=== PATIENT | male | born 1945 | race Caucasian/White ===

== ENCOUNTER 2017-12-29 08:22 | Observation (INO) | payer MEDICARE ==
[2017-12-29] MEDS ORDERED: SODIUM CHLORIDE 0.9% 500 ML IV STA (08:36)
--- NOTE | 2017-12-29 08:42 | ED ---
General Adult HPI - General Chief complaint: GI Bleed Stated complaint: blood in stool Time Seen by Provider: 12/29/17 08:25 Source: patient, RN notes reviewed Mode of arrival: ambulatory Limitations: no limitations - History of Present Illness Initial comments: This is a 72-year-old male who presents emergency Department the past medical history significant for COPD and coronary artery disease. Patient states he is on no blood thinners. Patient states about a month ago he had some blood per rectum and it went away so he did not follow up. Patient states it happened again Sunday and again this morning and his doctor wanted to come in and be evaluated. Patient denies any abdominal pain patient denies nausea vomiting diarrhea. Patient states he was bright red blood in the stool. Patient states he had previous surgery for an abscess around his rectum but that was many many years ago. Patient denies any recent fever chills. Patient denies any chest pain palpitations difficulty breathing or shortness of breath. Patient denies any lightheadedness or dizziness. - Related Data Home Medications Medication Instructions Recorded Confirmed Allopurinol [Zyloprim] 100 mg PO DAILY 03/02/16 03/06/16 Aspirin [Adult Low Dose Aspirin EC] 81 mg PO DAILY 03/02/16 03/06/16 Atenolol [Tenormin] 50 mg PO DAILY 03/02/16 03/06/16 Cephalexin [Keflex] 500 mg PO TID 03/02/16 03/06/16 Furosemide [Lasix] 20 mg PO DAILY 03/02/16 03/06/16 Lisinopril [Zestril] 10 mg PO DAILY 03/02/16 03/06/16 Mometasone/Formoterol [Dulera 100 2 puff INHALATION BID 03/02/16 03/06/16 Mcg/5 Mcg Inhaler] Pantoprazole Sodium [Protonix] 20 mg PO DAILY 03/02/16 03/06/16 Simvastatin [Zocor] 20 mg PO DAILY 03/02/16 03/06/16 Previous Rx's Medication Instructions Recorded Ciprofloxacin HCl [Cipro] 500 mg PO Q12HR #14 tablet 03/06/16 Allergies Allergy/AdvReac Type Severity Reaction Status Date / Time No Known Allergies Allergy Verified 12/29/17 08:27 Review of Systems ROS Statement: Those systems with pertinent positive or pertinent negative responses have been documented in the HPI. ROS Other: All systems not noted in ROS Statement are negative. Past Medical History Past Medical History: Chest Pain / Angina, COPD, GERD/Reflux, Myocardial Infarction ([place]), Skin Disorder Additional Past Medical History / Comment(s): gout, open sore rectal area(Dr Alfredo aware per pt) currently on antibiotics Last Myocardial Infarction Date:: approx 2005 History of Any Multi-Drug Resistant Organisms: None Reported Past Surgical History: Heart Catheterization With Stent Additional Past Surgical History / Comment(s): total 3 cardiac stents, surgery for cyst in rectal area, siddharth cataracts Past Anesthesia/Blood Transfusion Reactions: No Reported Reaction Date of Last Stent Placement:: 2005 Past Psychological History: No Psychological Hx Reported Smoking Status: Current some day smoker Past Alcohol Use History: Occasional Past Drug Use History: None Reported General Exam - General Exam Comments Initial Comments: GENERAL: Patient is well-developed and well-nourished. Patient is nontoxic and well- hydrated and is in no acute distress. ENT: Neck is soft and supple. No significant lymphadenopathy is noted. Oropharynx is clear. Moist mucous membranes. EYES: The sclera were anicteric and conjunctiva were pink and moist. Extraocular movements were intact and pupils were equal round and reactive to light. Eyelids were unremarkable. PULMONARY: Unlabored respirations. Good breath sounds bilaterally. No audible rales rhonchi or wheezing was noted. CARDIOVASCULAR: There is a regular rate and rhythm without any murmurs gallops or rubs. ABDOMEN: Soft and nontender with normal bowel sounds. No palpable organomegaly was noted. There is no palpable pulsatile mass. RECTAL No obvious hemorrhoids or fissures noted on rectal exam. Patient has significant scarring from previous surgeries SKIN: Skin is clear with no lesions or rashes and otherwise unremarkable. NEUROLOGIC: Patient is alert and oriented x3. Cranial nerves II through XII are grossly intact. Motor and sensory are also intact. Normal speech, volume and content. Symmetrical smile. MUSCULOSKELETAL: Normal extremities with adequate strength and full range of motion. No lower extremity swelling or edema. No calf tenderness. LYMPHATICS: No significant lymphadenopathy is noted PSYCHIATRIC: Normal psychiatric evaluation. Limitations: no limitations Course Vital Signs 12/29/17 08:24 Temperature 99.2 F Pulse Rate 50 L Respiratory 18 Rate Blood Pressure 146/78 O2 Sat by Pulse 98 Oximetry Medical Decision Making - Medical Decision Making EKG shows sinus rhythm with occasional PAC at a rate of 65 bpm MS interval is 202 QRS 76 QT interval 390 QTC is 405. Patient's EKG shows no ST segment elevation or depression no T-wave abnormalities are noted. Patient requests Dr. Pino for his GI bleed problems. Patient states he had an appointment with her coming up in the near future - Lab Data Result diagrams: 12/29/17 08:55 12/29/17 08:55 Lab Results 12/29/17 12/29/17 12/29/17 Range/Units 08:55 08:55 08:55 WBC 6.5 (3.8-10.6) k/uL RBC 5.40 (4.30-5.90) m/uL Hgb 17.1 (13.0-17.5) gm/dL Hct 49.7 (39.0-53.0) % MCV 92.1 (80.0-100.0) fL MCH 31.6 (25.0-35.0) pg MCHC 34.3 (31.0-37.0) g/dL RDW 12.5 (11.5-15.5) % Plt Count 205 (150-450) k/uL Neutrophils % 56 % Lymphocytes % 30 % Monocytes % 7 % Eosinophils % 5 % Basophils % 0 % Neutrophils # 3.6 (1.3-7.7) k/uL Lymphocytes # 1.9 (1.0-4.8) k/uL Monocytes # 0.5 (0-1.0) k/uL Eosinophils # 0.3 (0-0.7) k/uL Basophils # 0.0 (0-0.2) k/uL PT 10.2 (9.0-12.0) sec INR 1.0 (<1.2) APTT 23.1 (22.0-30.0) sec Sodium 139 (137-145) mmol/L Potassium 4.7 (3.5-5.1) mmol/L Chloride 103 (98-107) mmol/L Carbon Dioxide 28 (22-30) mmol/L Anion Gap 8 mmol/L BUN 12 (9-20) mg/dL Creatinine 1.13 (0.66-1.25) mg/dL Est GFR (CKD-EPI)AfAm 75 (>60 ml/min/1.73 sqM) Est GFR (CKD-EPI)NonAf 65 (>60 ml/min/1.73 sqM) Glucose 118 H (74-99) mg/dL Calcium 9.5 (8.4-10.2) mg/dL Magnesium 2.0 (1.6-2.3) mg/dL Total Bilirubin 0.6 (0.2-1.3) mg/dL AST 27 (17-59) U/L ALT 43 (21-72) U/L Alkaline Phosphatase 67 (38-126) U/L Total Protein 6.6 (6.3-8.2) g/dL Albumin 4.0 (3.5-5.0) g/dL Disposition Clinical Impression: Gastrointestinal hemorrhage Disposition: ADMITTED IP TO THIS HOSP Referrals: Deanna Kate MD [Primary Care Provider] - 1-2 days Time of Disposition: 09:19
[2017-12-29 09:06] LABS: Basophils % (A) 0 %; Eosinophils # (A) 0.3 k/uL (0-0.7); Eosinophils % (A) 5 %; HCT 49.7 % (39.0-53.0); HGB 17.1 gm/dL (13.0-17.5); Lymphocytes # (A) 1.9 k/uL (1.0-4.8); Lymphocytes % (A) 30 %; MCH 31.6 pg (25.0-35.0); MCHC 34.3 g/dL (31.0-37.0); MCV 92.1 fL (80.0-100.0); Mean Platelet Volume 6.4; Monocytes # (A) 0.5 k/uL (0-1.0); Monocytes % (A) 7 %; Neutrophils # (A) 3.6 k/uL (1.3-7.7); Neutrophils % (A) 56 %; Platelet Count 205 k/uL (150-450); RDW 12.5 % (11.5-15.5); WBC 6.5 k/uL (3.8-10.6)
[2017-12-29 09:12] LABS: Partial Thromboplastin Time 23.1 sec (22.0-30.0); Prothrombin Time 10.2 sec (9.0-12.0)
[2017-12-29 09:16] LABS: Calcium 9.5 mg/dL (8.4-10.2); Potassium 4.7 mmol/L (3.5-5.1); Total Bilirubin 0.6 mg/dL (0.2-1.3); Total Protein 6.6 g/dL (6.3-8.2)
[2017-12-29] MEDS ORDERED: SODIUM CHLORIDE 0.9% 1,000 ML IV ONE (09:19)
[2017-12-29 12:13] VITALS: BMI 33.9
[2017-12-29] MEDS: SODIUM CHLORIDE 0.9% 1,000 ML IV SCH (15:13)
[2017-12-29 16:58] LABS: Basophils % (A) 0 %; Eosinophils # (A) 0.3 k/uL (0-0.7); Eosinophils % (A) 4 %; HCT 46.2 % (39.0-53.0); HGB 15.5 gm/dL (13.0-17.5); Lymphocytes # (A) 2.4 k/uL (1.0-4.8); Lymphocytes % (A) 32 %; MCH 31.5 pg (25.0-35.0); MCHC 33.6 g/dL (31.0-37.0); MCV 93.8 fL (80.0-100.0); Mean Platelet Volume 6.5; Monocytes # (A) 0.7 k/uL (0-1.0); Monocytes % (A) 8 %; Neutrophils # (A) 4.1 k/uL (1.3-7.7); Neutrophils % (A) 53 %; Platelet Count 205 k/uL (150-450); RBC 4.92 m/uL (4.30-5.90); RDW 12.8 % (11.5-15.5); WBC 7.7 k/uL (3.8-10.6)
[2017-12-29] MEDS: SYMBICORT 80-4.5 MCG INHALER INHALATION SCH (19:41)
[2017-12-29] MEDS: TAMSULOSIN 0.4 MG CAP.ER.24H PO SCH (21:15)
[2017-12-29 22:33] LABS: Basophils % (A) 0 %; Eosinophils # (A) 0.3 k/uL (0-0.7); Eosinophils % (A) 4 %; HCT 43.6 % (39.0-53.0); Lymphocytes # (A) 2.4 k/uL (1.0-4.8); Lymphocytes % (A) 32 %; MCH 31.9 pg (25.0-35.0); MCHC 34.4 g/dL (31.0-37.0); MCV 92.9 fL (80.0-100.0); Mean Platelet Volume 6.4; Monocytes # (A) 0.5 k/uL (0-1.0); Monocytes % (A) 6 %; Neutrophils # (A) 4.1 k/uL (1.3-7.7); Neutrophils % (A) 55 %; Platelet Count 183 k/uL (150-450); RBC 4.69 m/uL (4.30-5.90); RDW 12.6 % (11.5-15.5); WBC 7.4 k/uL (3.8-10.6)
[2017-12-30] MEDS: SODIUM CHLORIDE 0.9% 1,000 ML IV SCH (03:42)
[2017-12-30 04:10] LABS: Basophils % (A) 0 %; Eosinophils # (A) 0.3 k/uL (0-0.7); Eosinophils % (A) 5 %; HCT 45.6 % (39.0-53.0); HGB 15.8 gm/dL (13.0-17.5); Lymphocytes # (A) 2.6 k/uL (1.0-4.8); Lymphocytes % (A) 36 %; MCH 32.4 pg (25.0-35.0); MCHC 34.7 g/dL (31.0-37.0); MCV 93.4 fL (80.0-100.0); Mean Platelet Volume 6.7; Monocytes # (A) 0.4 k/uL (0-1.0); Monocytes % (A) 6 %; Neutrophils # (A) 3.6 k/uL (1.3-7.7); Neutrophils % (A) 51 %; Platelet Count 164 k/uL (150-450); RBC 4.88 m/uL (4.30-5.90); RDW 12.5 % (11.5-15.5); WBC 7.1 k/uL (3.8-10.6)
[2017-12-30] MEDS: SYMBICORT 80-4.5 MCG INHALER INHALATION SCH ×2 (07:43→19:36)
[2017-12-30] MEDS: PANTOPRAZOLE 40 MG TABLET PO SCH (08:16)
[2017-12-30] MEDS: FUROSEMIDE 20 MG TAB PO SCH (08:16)
[2017-12-30] MEDS: METOPROLOL SUCCINATE (ER) 50 MG TAB.ER.24H PO SCH (08:16)
[2017-12-30] MEDS: LISINOPRIL 10 MG TAB PO SCH (08:17)
[2017-12-30] MEDS: FINASTERIDE 5 MG TAB PO SCH (08:17)
--- NOTE | 2017-12-30 10:21 | P.HPIM ---
History of Present Illness H&P Date: 12/29/17 Chief Complaint: GIB This is a 72-year-old male who presents emergency Department the past medical history significant for COPD and coronary artery disease. Patient states he is on no blood thinners. Patient states about a month ago he had some blood per rectum and it went away so he did not follow up. Patient states it happened again Sunday and again this morning and his doctor wanted to come in and be evaluated. Patient denies any abdominal pain patient denies nausea vomiting diarrhea. Patient states he was bright red blood in the stool. Patient states he had previous surgery for an abscess around his rectum but that was many many years ago. Patient denies any recent fever chills. Patient denies any chest pain palpitations difficulty breathing or shortness of breath. Patient denies any lightheadedness or dizziness. Review of Systems Constitutional: Denies chills, Denies fatigue, Denies fever Eyes: denies blurred vision Ears: deny: decreased hearing Ears, nose, mouth and throat: Denies epistaxis Cardiovascular: Denies chest pain, Denies lightheadedness, Denies palpitations, Denies syncope Respiratory: Denies cough, Denies hemoptysis, Denies wheezing Gastrointestinal: Reports hematochezia, Denies abdominal pain, Denies diarrhea, Denies hematemesis, Denies nausea, Denies vomiting Genitourinary: Denies dysuria, Denies hematuria Musculoskeletal: Denies frequent falls, Denies neck pain, Denies neck stiffness , Denies redness of joints Integumentary: Denies darkening of skin, Denies pruritus, Denies rash, Denies sores Neurological: Denies ataxia, Denies confusion, Denies double vision, Denies numbness, Denies weakness Psychiatric: Denies anxiety, Denies memory loss Endocrine: Denies cold intolerance, Denies excessive sweating, Denies heat intolerance Hematologic/Lymphatic: Denies easy bleeding, Denies easy bruising, Denies lymphedema Allergic/Immunologic: Denies anaphylaxis, Denies angioedema Past Medical History Past Medical History: Chest Pain / Angina, COPD, GERD/Reflux, Myocardial Infarction ([place]), Skin Disorder Additional Past Medical History / Comment(s): gout, open sore rectal area(Dr Alfredo aware per pt) currently on antibiotics Last Myocardial Infarction Date:: approx 2005 History of Any Multi-Drug Resistant Organisms: None Reported Past Surgical History: Heart Catheterization With Stent Additional Past Surgical History / Comment(s): total 3 cardiac stents, surgery for cyst in rectal area, siddharth cataracts uro lift, cysts removed from testicles Past Anesthesia/Blood Transfusion Reactions: No Reported Reaction Date of Last Stent Placement:: 2005 Past Psychological History: No Psychological Hx Reported Smoking Status: Current some day smoker Past Alcohol Use History: Occasional Additional Past Alcohol Use History / Comment(s): has smoked for 50 yrs- now down to some day smoker-trying to quit Past Drug Use History: None Reported Medications and Allergies Home Medications Medication Instructions Recorded Confirmed Type Allopurinol [Zyloprim] 100 mg PO DAILY 03/02/16 12/29/17 History Aspirin [Adult Low Dose Aspirin EC] 81 mg PO DAILY 03/02/16 12/29/17 History Furosemide [Lasix] 20 mg PO DAILY 03/02/16 12/29/17 History Lisinopril [Zestril] 10 mg PO DAILY 03/02/16 12/29/17 History Mometasone/Formoterol [Dulera 100 2 puff INHALATION RT-BID 03/02/16 12/29/17 History Mcg/5 Mcg Inhaler] Pantoprazole Sodium [Protonix] 20 mg PO DAILY 03/02/16 12/29/17 History Finasteride [Proscar] 5 mg PO DAILY 12/29/17 12/29/17 History Magnesium 200 mg PO DAILY 12/29/17 12/29/17 History Metoprolol Succinate [Toprol Xl] 50 mg PO DAILY 12/29/17 12/29/17 History Multivitamins, Thera [Multivitamin 1 tab PO DAILY 12/29/17 12/29/17 History (formulary)] Tamsulosin HCl [Flomax] 0.4 mg PO HS 12/29/17 12/29/17 History Allergies Allergy/AdvReac Type Severity Reaction Status Date / Time No Known Allergies Allergy Verified 12/29/17 10:36 Physical Exam Vitals: Vital Signs Temp Pulse Pulse Resp BP BP Pulse Ox 12/29/17 10:40 98.0 F 65 18 144/81 96 12/29/17 10:15 98.2 F 61 16 149/75 95 12/29/17 09:27 97.2 F L 58 L 16 148/65 95 08/11/18 08:24 99.2 F 50 L 18 146/78 98 Intake and Output 12/28/17 12/29/17 12/29/17 22:59 06:59 14:59 Other: Weight 113.398 kg - Constitutional General appearance: Present: average body habitus, cooperative, no acute distress - EENT Eyes: Present: anicteric sclerae, EOMI, PERRLA, normal appearance ENT: Present: hearing grossly normal, normal oropharynx Ears: bilateral: normal - Neck Neck: Present: normal ROM. Absent: lymphadenopathy, rigidity, thyromegaly Carotids: negative: bruit present Thyroid: bilateral: normal size, negative: enlarged, nodule - Respiratory Respiratory: bilateral: CTA, negative: rales, rhonchi, wheezing - Cardiovascular Rhythm: regular Heart sounds: normal: S1, S2 Abnormal Heart Sounds: Absent: systolic murmur, diastolic murmur - Gastrointestinal General gastrointestinal: Present: normal bowel sounds, soft. Absent: distended , organomegaly, tenderness - Genitourinary Genitourinary Comment(s): deferred - Integumentary Integumentary: Present: normal turgor. Absent: jaundiced, rash, ulcer - Neurologic Neurologic: Present: CNII-XII intact. Absent: focal deficits - Musculoskeletal Musculoskeletal: Present: gait normal, strength equal bilaterally - Psychiatric Psychiatric: Present: A&O x's 3, appropriate affect, intact judgment & insight Results CBC & Chem 7: 12/30/17 04:01 12/29/17 08:55 Labs: Abnormal Lab Results - Last 24 Hours (Table) 12/29/17 Range/Units 08:55 Glucose 118 H (74-99) mg/dL Thrombosis Risk Factor Assmnt - Choose All That Apply Any of the Below Risk Factors Present?: Yes Each Factor Represents 1 point: Obesity (BMI >25), Swollen legs (current) Each Risk Factor Represents 2 Points: Age 61-74 years Other congenital or acquired thrombophilia - If yes, enter type in comment: No Thrombosis Risk Factor Assessment Total Risk Factor Score: 4 Thrombosis Risk Factor Assessment Level: Moderate Risk Assessment and Plan Assessment: 1. GI bleed - We will admit the patient for observation to medical floor - Monitor H&H closely type, crossmatch and transfuse packed RBCs if hemoglobin is less than 8 - Continue with Protonix 40 mg before meals breakfast - Consult GI for further evaluation and recommendations 2. Hypertension; stable on metoprolol 50 mg daily, lisinopril 10 mg daily and Lasix 20 mg daily 3. Hyperlipidemia 4. Asthma/ COPD; not in exacerbation - Continue with Symbicort inhalation 2 puffs twice a day 5. Gastroesophageal reflux disease; stable on Protonix 40 mg daily 6. DVT prophylaxis; SCDs only secondary to GI bleed CODE STATUS; full code Time with Patient: Greater than 30
--- NOTE | 2017-12-30 13:34 | P.PN ---
Subjective Progress Note Date: 12/30/17 Principal diagnosis: GI bleed This is a 72-year-old male who presents emergency Department the past medical history significant for COPD and coronary artery disease. Patient states he is on no blood thinners. Patient states about a month ago he had some blood per rectum and it went away so he did not follow up. Patient states it happened again Sunday and again this morning and his doctor wanted to come in and be evaluated. Patient denies any abdominal pain patient denies nausea vomiting diarrhea. Patient states he was bright red blood in the stool. Patient states he had previous surgery for an abscess around his rectum but that was many many years ago. Patient denies any recent fever chills. Patient denies any chest pain palpitations difficulty breathing or shortness of breath. Patient denies any lightheadedness or dizziness 12/30/2017 Patient is seen and evaluated in the room at bedside; continues to have some rectal bleeding; claims he has not had any bowel movement since admission and has been able to see blood when he wipes himself on the toilet paper; patient relates he has been seen by Dr. Pedro yesterday; wishes to see Dr. Heard prior to discharge; we did discuss patient's lab results with a stable hemoglobin; possible discharge in next 24-48 hours pending recommendations from Dr. Heard tomorrow morning Objective - Vital Signs Vital signs: Vital Signs Temp 97.4 F L 12/30/17 07:24 Pulse 68 12/30/17 07:24 Resp 18 12/30/17 07:24 BP 157/82 12/30/17 07:24 Pulse Ox 92 L 12/30/17 07:24 Intake & Output 12/29/17 12/30/17 12/30/17 18:59 06:59 18:59 Intake Total 300 300 400 Balance 300 300 400 Weight 113.398 kg Intake: Intake, IV Titration 300 Amount Sodium Chloride 0.9% 1, 300 000 ml @ 75 mls/hr IV . [id number] [facility] Rx#:[id number] Oral 300 400 Other: Voiding Method Toilet Toilet Toilet Urinal # Voids 2 1 # Bowel Movements 1 - Exam - Constitutional General appearance: Present: average body habitus, cooperative, no acute distress - EENT Eyes: Present: anicteric sclerae, EOMI, PERRLA, normal appearance ENT: Present: hearing grossly normal, normal oropharynx Ears: bilateral: normal - Neck Neck: Present: normal ROM. Absent: lymphadenopathy, rigidity, thyromegaly Carotids: negative: bruit present Thyroid: bilateral: normal size, negative: enlarged, nodule - Respiratory Respiratory: bilateral: CTA, negative: rales, rhonchi, wheezing - Cardiovascular Rhythm: regular Heart sounds: normal: S1, S2 Abnormal Heart Sounds: Absent: systolic murmur, diastolic murmur - Gastrointestinal General gastrointestinal: Present: normal bowel sounds, soft. Absent: distended , organomegaly, tenderness - Genitourinary Genitourinary Comment(s): deferred - Integumentary Integumentary: Present: normal turgor. Absent: jaundiced, rash, ulcer - Neurologic Neurologic: Present: CNII-XII intact. Absent: focal deficits - Musculoskeletal Musculoskeletal: Present: gait normal, strength equal bilaterally - Psychiatric Psychiatric: Present: A&O x's 3, appropriate affect, intact judgment & insight - Labs CBC & Chem 7: 12/30/17 04:01 12/29/17 08:55 Assessment and Plan Assessment: 1. GI bleed - We will admit the patient for observation to medical floor - Monitor H&H closely type, crossmatch and transfuse packed RBCs if hemoglobin is less than 8 - Continue with Protonix 40 mg before meals breakfast - Consult GI for further evaluation and recommendations 2. Hypertension; stable on metoprolol 50 mg daily, lisinopril 10 mg daily and Lasix 20 mg daily 3. Hyperlipidemia 4. Asthma/ COPD; not in exacerbation - Continue with Symbicort inhalation 2 puffs twice a day 5. Gastroesophageal reflux disease; stable on Protonix 40 mg daily 6. DVT prophylaxis; SCDs only secondary to GI bleed CODE STATUS; full code Time with Patient: Greater than 30
[2017-12-30] MEDS: TAMSULOSIN 0.4 MG CAP.ER.24H PO SCH (20:04)
--- NOTE | 2017-12-30 20:53 | P.CONS ---
History of Present Illness - Reason for Consult Consult date: 12/29/17 Rectal bleeding - History of Present Illness The patient is a 72-year-old male who presented to the Emergency Department with rectal bleeding, He has past medical history significant for COPD and coronary atherosclerotic heart disease and is on no blood thinners. Patient states about a month ago he had some blood per rectum and it went away so he did not follow up. Patient states it happened again Sunday and was scheduled to see Dr Beltran next week, but when he bled again the morning of admission, he called his PCP who wanted him to come in to the hospital and be evaluated. Patient denies any abdominal pain, nausea, vomiting,or diarrhea or constipation. He states he saw bright red blood in the stool. Patient states he had previous surgery for an abscess around his rectum but that was many years ago. Patient denies any fever or chills. Patient denies any chest pain, palpitations or shortness of breath. Patient denies any lightheadedness or dizziness. Review of Systems Constitutional: Denied fever, chills or unintentional weight loss Neurologic: No headaches, double vision or other sensory or motor changes Cardiopulmonary: No chest pains, shortness of breath or palpitations Gastrointestinal: See present illness above Genitourinary: No hematuria, dysuria or frequency Musculoskeletal: No joint complaints or swelling Skin: No rashes Endocrine: No history of diabetes or thyroid disease Hematologic: No history of anemia or bleeding tendency Psychiatric: No anxiety or depression Past Medical History Past Medical History: Chest Pain / Angina, COPD, GERD/Reflux, Myocardial Infarction ([place]), Skin Disorder Additional Past Medical History / Comment(s): gout, open sore rectal area(Dr Alfredo aware per pt) currently on antibiotics Last Myocardial Infarction Date:: 2005 History of Any Multi-Drug Resistant Organisms: None Reported Past Surgical History: Heart Catheterization With Stent Additional Past Surgical History / Comment(s): total 3 cardiac stents, surgery for cyst in rectal area, siddharth cataracts uro lift, cysts removed from testicles Past Anesthesia/Blood Transfusion Reactions: No Reported Reaction Date of Last Stent Placement:: 2005 Past Psychological History: No Psychological Hx Reported Smoking Status: Current some day smoker Past Alcohol Use History: Occasional Additional Past Alcohol Use History / Comment(s): has smoked for 50 yrs- now down to some day smoker-trying to quit Past Drug Use History: None Reported Medications and Allergies Home Medications Medication Instructions Recorded Confirmed Type Allopurinol [Zyloprim] 100 mg PO DAILY 03/02/16 12/29/17 History Aspirin [Adult Low Dose Aspirin EC] 81 mg PO DAILY 03/02/16 12/29/17 History Furosemide [Lasix] 20 mg PO DAILY 03/02/16 12/29/17 History Lisinopril [Zestril] 10 mg PO DAILY 03/02/16 12/29/17 History Mometasone/Formoterol [Dulera 100 2 puff INHALATION RT-BID 03/02/16 12/29/17 History Mcg/5 Mcg Inhaler] Pantoprazole Sodium [Protonix] 20 mg PO DAILY 03/02/16 12/29/17 History Finasteride [Proscar] 5 mg PO DAILY 12/29/17 12/29/17 History Magnesium 200 mg PO DAILY 12/29/17 12/29/17 History Metoprolol Succinate [Toprol Xl] 50 mg PO DAILY 12/29/17 12/29/17 History Multivitamins, Thera [Multivitamin 1 tab PO DAILY 12/29/17 12/29/17 History (formulary)] Tamsulosin HCl [Flomax] 0.4 mg PO HS 12/29/17 12/29/17 History Allergies Allergy/AdvReac Type Severity Reaction Status Date / Time No Known Allergies Allergy Verified 12/29/17 10:36 Physical Exam Vitals: Vital Signs Temp Pulse Resp BP Pulse Ox 12/30/17 14:04 98.9 F 63 16 118/72 94 L 12/30/17 07:24 97.4 F L 68 18 157/82 92 L 12/29/17 23:20 98.3 F 85 20 133/79 92 L Intake and Output 12/30/17 12/30/17 12/30/17 06:59 14:59 22:59 Intake Total 100 640 Balance 100 640 Intake: Oral 100 640 Other: Voiding Method Toilet Toilet Toilet # Voids 1 3 3 Weight 113.398 kg General: Appears stated age, very pleasant in no acute distress Head and neck: Normocephalic and atraumatic, conjunctivae pink and sclerae not icteric, mucous membranes moist and pink, no masses in the neck or tracheal shift Lungs: Clear to auscultation with no dullness to percussion Heart: Regular, no abnormal sounds, murmurs, gallops or friction rubs Abdomen: Soft, no masses or organomegaly, no tenderness. Bowel sounds present. Rectal exam showed no masses with brown stools noted on the glovedexamining finger Extremities: No clubbing, cyanosis or edema Neurologic: Alert and oriented 3. Cranial nerves grossly intact. No gross sensory or motor abnormalities Results CBC & Chem 7: 12/30/17 04:01 12/29/17 08:55 Assessment and Plan Assessment: Rectal bleeding likely secondary to internal hemorrhoids or fissure. In this age group rectal tumors to be kept in mind. Plan: Agree with your current management. Will consider inpatient or outpatient workup based on his course and preference. Will discuss with you,
[2017-12-31] MEDS: SYMBICORT 80-4.5 MCG INHALER INHALATION SCH ×2 (08:01→19:16)
[2017-12-31] MEDS: LISINOPRIL 10 MG TAB PO SCH (08:14)
[2017-12-31] MEDS: METOPROLOL SUCCINATE (ER) 50 MG TAB.ER.24H PO SCH (08:15)
[2017-12-31] MEDS: FINASTERIDE 5 MG TAB PO SCH (08:15)
[2017-12-31] MEDS: PANTOPRAZOLE 40 MG TABLET PO SCH (08:15)
[2017-12-31] MEDS: FUROSEMIDE 20 MG TAB PO SCH (08:15)
[2017-12-31 09:38] LABS: Basophils % (A) 0 %; Eosinophils # (A) 0.3 k/uL (0-0.7); Eosinophils % (A) 5 %; HCT 50.6 % (39.0-53.0); HGB 17.5 gm/dL (13.0-17.5); Lymphocytes % (A) 33 %; MCH 32.1 pg (25.0-35.0); MCHC 34.5 g/dL (31.0-37.0); MCV 92.9 fL (80.0-100.0); Mean Platelet Volume 6.5; Monocytes # (A) 0.4 k/uL (0-1.0); Monocytes % (A) 6 %; Neutrophils # (A) 3.4 k/uL (1.3-7.7); Neutrophils % (A) 54 %; Platelet Count 209 k/uL (150-450); RBC 5.45 m/uL (4.30-5.90); RDW 12.5 % (11.5-15.5); WBC 6.2 k/uL (3.8-10.6)
[2017-12-31 09:44] LABS: Calcium 9.5 mg/dL (8.4-10.2); Potassium 4.6 mmol/L (3.5-5.1)
[2017-12-31 09:54] LABS: Creatine Kinase 50 U/L (55-170)
[2017-12-31 10:06] LABS: Creatine Kinase MB 2.2 ng/mL (0.0-2.4); Troponin I <0.012 ng/mL (0.000-0.034)
[2017-12-31] MEDS ORDERED: PEG 3350-NA SULF,BICARB,CL/KCL 4,000 ML BOTTLE PO ONE (15:00)
[2017-12-31 18:27] LABS: HGB 17.4 gm/dL (13.0-17.5); MCH 31.2 pg (25.0-35.0); MCHC 33.5 g/dL (31.0-37.0); MCV 93.2 fL (80.0-100.0); Mean Platelet Volume 6.3; Platelet Count 207 k/uL (150-450); RBC 5.58 m/uL (4.30-5.90); RDW 12.8 % (11.5-15.5); WBC 8.3 k/uL (3.8-10.6)
[2017-12-31] MEDS: TAMSULOSIN 0.4 MG CAP.ER.24H PO SCH (19:48)
[2017-12-31] MEDS ORDERED: LIDOCAINE 1% 20 ML VIAL (10MG/ML) FOR IV START INTRADERMA PRN (21:33)
[2017-12-31] MEDS ORDERED: LACTATED RINGERS 1,000 ML IV SCH (21:45)
--- NOTE | 2017-12-31 22:42 | P.PN ---
Subjective Progress Note Date: 12/31/17 Principal diagnosis: Acute GI bleed This is a 72-year-old male who presents emergency Department the past medical history significant for COPD and coronary artery disease. Patient states he is on no blood thinners. Patient states about a month ago he had some blood per rectum and it went away so he did not follow up. Patient states it happened again Sunday and again this morning and his doctor wanted to come in and be evaluated. Patient denies any abdominal pain patient denies nausea vomiting diarrhea. Patient states he was bright red blood in the stool. Patient states he had previous surgery for an abscess around his rectum but that was many many years ago. Patient denies any recent fever chills. Patient denies any chest pain palpitations difficulty breathing or shortness of breath. Patient denies any lightheadedness or dizziness 12/30/2017 Patient is seen and evaluated in the room at bedside; continues to have some rectal bleeding; claims he has not had any bowel movement since admission and has been able to see blood when he wipes himself on the toilet paper; patient relates he has been seen by Dr. Pedro yesterday; wishes to see Dr. Heard prior to discharge; we did discuss patient's lab results with a stable hemoglobin; possible discharge in next 24-48 hours pending recommendations from Dr. Heard tomorrow morning 12/31/2017 Patient is able to ambulate in the hallway. Denied any further bowel movement with bright red blood. Hemoglobin is fairly stable at 17. Patient was seen by gastroenterology and recommended colonoscopy likely to be done tomorrow. Patient otherwise denied any complaints of chest pain or shortness of breath. No nausea vomiting or abdominal pain. No diarrhea or dysuria. All other review of systems negative except the above Current medications reviewed. Objective - Vital Signs Vital signs: Vital Signs Temp 98.7 F 12/31/17 07:00 Pulse 64 12/31/17 07:00 Resp 18 12/31/17 07:00 BP 117/74 12/31/17 07:00 Pulse Ox 94 L 12/31/17 07:00 Intake & Output 12/30/17 12/31/17 12/31/17 18:59 06:59 18:59 Intake Total 640 200 240 Output Total 450 Balance 640 -250 240 Weight 113.398 kg Intake: Oral 640 200 240 Output: Urine 450 Other: Voiding Method Toilet Toilet # Voids 3 1 - Exam PHYSICAL EXAMINATION: Patient is lying in the bed comfortably, no acute distress, awake alert and oriented.. HEENT: Normocephalic. Neck is supple. Pupils reactive. Nostrils clear. Oral cavity is moist. Ears reveal no drainage. Neck reveals no JVD, carotid bruits, or thyromegaly. CHEST EXAMINATION: Trachea is central. Symmetrical expansion. Lung andino clear to auscultation and percussion. CARDIAC: Normal S1, S2 with no gallops. No murmurs ABDOMEN: Soft. Bowel sounds normal. No organomegaly. No abdominal bruits. Extremities: reveal no edema. No clubbing or cyanosis Neurologically awake, alert, oriented x3 with well-coordinated movements. No focal deficits noted Skin: No rash or skin lesions. Psychiatric: Coperative. Nonsuicidal Musculoskeletal: No joint swelling or deformity. Normal range of motion. - Labs CBC & Chem 7: 12/31/17 18:06 12/31/17 08:50 Labs: Abnormal Lab Results - Last 24 Hours (Table) 12/31/17 12/31/17 Range/Units 08:50 08:50 Glucose 158 H (74-99) mg/dL Total Creatine Kinase 50 L (55-170) U/L Assessment and Plan Assessment: 1. Acute GI bleed likely due to internal hemorrhoids. Possible rectal tumor in the differential. - Monitor H&H closely type, crossmatch and transfuse packed RBCs if hemoglobin is less than 8 - Continue with Protonix 40 mg before meals breakfast - GI is planning for colonoscopy tomorrow. 2. Hypertension; stable on metoprolol 50 mg daily, lisinopril 10 mg daily and Lasix 20 mg daily 3. Hyperlipidemia 4. Asthma/ COPD; not in exacerbation - Continue with Symbicort inhalation 2 puffs twice a day 5. Gastroesophageal reflux disease; stable on Protonix 40 mg daily 6. DVT prophylaxis; SCDs only secondary to GI bleed Time with Patient: Greater than 30
[2018-01-01] MEDS: FINASTERIDE 5 MG TAB PO SCH (08:40)
[2018-01-01] MEDS: LISINOPRIL 10 MG TAB PO SCH (08:40)
[2018-01-01] MEDS: PANTOPRAZOLE 40 MG TABLET PO SCH (08:40)
[2018-01-01] MEDS: FUROSEMIDE 20 MG TAB PO SCH (08:41)
[2018-01-01] MEDS: METOPROLOL SUCCINATE (ER) 50 MG TAB.ER.24H PO SCH (08:41)
[2018-01-01] MEDS: SYMBICORT 80-4.5 MCG INHALER INHALATION SCH (09:07)
[2018-01-01] MEDS ORDERED: PROPOFOL 10 MG/ML 20 ML VIAL IV ONE (10:55)
[2018-01-01] MEDS ORDERED: IV FLUID CONTINUATION 900 ML IV ONE (10:56)
--- NOTE | 2018-01-01 11:59 | P.PCN ---
Date of Procedure: 01/01/18 Procedure(s) Performed: Procedure: Colonoscopy and polypectomy. Preoperative diagnosis: Intermittent rectal bleeding. Postoperative diagnosis: 1. Internal hemorrhoids and posterior fissures likely cause of bleeding not bleeding at the time of this exam. 2. Sigmoid diverticulosis with no evidence of acute diverticulitis or strictures. 3. Multiple small polyps snared in the cecum, sigmoid and rectum but no large polyps or cancer. Preparation: GoLYTELY prep. Sedation: Was provided by anesthesia. Brief clinical history: The patient is a 72-year-old male who presented to the Emergency Department with rectal bleeding, He has past medical history significant for COPD and coronary atherosclerotic heart disease and is on no blood thinners. Patient states about a month ago he had some blood per rectum and it went away so he did not follow up. Patient states it happened again Sunday and was scheduled to see Dr Beltran next week, but when he bled again the morning of admission, he called his PCP who wanted him to come in to the hospital and be evaluated. Patient denies any abdominal pain, nausea, vomiting, or diarrhea or constipation. He states he saw bright red blood in the stool. Patient states he had previous surgery for an abscess around his rectum but that was many years ago. Patient denies any fever or chills. Patient denies any chest pain, palpitations or shortness of breath. Patient denies any lightheadedness or dizziness. Other details are summarized in the history and physical and dictated consultations and progress notes. This evaluation is to assess for a source of bleeding. Procedure: With the patient on his left lateral decubitus position and after informed consent and adequate sedation, the perianal area was inspected and it showed a superficial posterior fissure that was not bleeding at the time of this exam. There were no masses felt on digital rectal examination. The Olympus CFQ 160L video colonoscope was then inserted in the rectum in the usual fashion and advanced to the cecum. There were multiple small polyps noted, two in the rectum, several in the sigmoid and several in the cecum all snared and retrieved by suction but there were no large polyps or cancer. Multiple diverticular orifices were seen scattered in the sigmoid with no evidence of acute diverticulitis or strictures. I retroflexed the endoscope in the rectum before the endoscope was withdrawn. Grade 2 internal hemorrhoids were noted without evidence of bleeding. The patient tolerated the procedure well. Plan: The patient was reassured. Discussed dietary measures and local care for hemorrhoids. Will await pathology results and make further plans based on his course. Would keep you updated on his progress.
[2018-01-01 15:44] VITALS: BP 122/75; PULSE 77; RESP 16; TEMP 97.3
== END 2018-01-01 16:04 | disposition home or self-care (01) ==
LOC: EC 08:22 → 4MS4W 09:20
PROVIDERS: ADMIT Hospitalist; ATTEND Hospitalist
DX: K64.1 Second degree hemorrhoids (principal); K62.1 Rectal polyp; D12.0 Benign neoplasm of cecum; D12.5 Benign neoplasm of sigmoid colon; K60.3 Anal fistula; J44.9 Chronic obstructive pulmonary disease, unspecified; I25.10 Atherosclerotic heart disease of native coronary artery without angina pectoris; M10.9 Gout, unspecified; I10 Essential (primary) hypertension; E78.5 Hyperlipidemia, unspecified; F17.200 Nicotine dependence, unspecified, uncomplicated; K21.9 Gastro-esophageal reflux disease without esophagitis; K57.30 Diverticulosis of large intestine without perforation or abscess without bleeding; I25.2 Old myocardial infarction; Z95.5 Presence of coronary angioplasty implant and graft; Z79.51 Long term (current) use of inhaled steroids; Z79.82 Long term (current) use of aspirin
CPT/HCPCS: 96360; 99285; 36415; 94640 ×6; 93005 ×2; 86900; 86901; 88305; 80053; 80048; 82550; 82553; 83735; 84484; 85025 ×3; 85027; 85610; 85730; 86850; 45385; G0378 ×4; S0138 ×3; J2704

== ENCOUNTER 2018-02-14 09:57 | Observation (INO) | payer MEDICARE ==
--- NOTE | 2018-02-14 10:28 | ED ---
General Adult HPI - General Chief complaint: GI Bleed Stated complaint: GI Bleed Time Seen by Provider: 02/14/18 10:09 Source: patient, RN notes reviewed, old records reviewed Mode of arrival: ambulatory Limitations: no limitations - History of Present Illness Initial comments: 72-year-old presenting for evaluation of rectal bleeding. Patient had recent admission with lower GI bleed. Patient did have colonoscopy at that time. Patient states that this morning he had some bright red rectal bleeding with a normal bowel movement. Denies any preceding melena. Patient is not on blood thinners. Denies significant abdominal pain. He does have some rectal pain which is been ongoing. - Related Data Home Medications Medication Instructions Recorded Confirmed Allopurinol [Zyloprim] 100 mg PO DAILY 03/02/16 02/14/18 Aspirin [Adult Low Dose Aspirin EC] 81 mg PO DAILY 03/02/16 02/14/18 Furosemide [Lasix] 20 mg PO DAILY 03/02/16 02/14/18 Lisinopril [Zestril] 10 mg PO DAILY 03/02/16 02/14/18 Mometasone/Formoterol [Dulera 100 2 puff INHALATION RT-BID 03/02/16 02/14/18 Mcg/5 Mcg Inhaler] Finasteride [Proscar] 5 mg PO DAILY 12/29/17 02/14/18 Metoprolol Succinate [Toprol Xl] 50 mg PO DAILY 12/29/17 02/14/18 Multivitamins, Thera [Multivitamin 1 tab PO DAILY 12/29/17 02/14/18 (formulary)] Tamsulosin HCl [Flomax] 0.4 mg PO HS 12/29/17 02/14/18 Pravastatin Sodium [Pravachol] 20 mg PO DAILY 02/14/18 02/14/18 Ranitidine HCl 150 mg PO HS 02/14/18 02/14/18 Wheat Dextrin [Benefiber] 1 each PO DAILY 02/14/18 02/14/18 Allergies Allergy/AdvReac Type Severity Reaction Status Date / Time No Known Allergies Allergy Verified 02/14/18 10:06 Review of Systems ROS Statement: Those systems with pertinent positive or pertinent negative responses have been documented in the HPI. ROS Other: All systems not noted in ROS Statement are negative. Past Medical History Past Medical History: Chest Pain / Angina, COPD, GERD/Reflux, Myocardial Infarction ([place]), Skin Disorder Additional Past Medical History / Comment(s): gout, open sore rectal area(Dr Alfredo aware per pt) currently on antibiotics Last Myocardial Infarction Date:: 2005 History of Any Multi-Drug Resistant Organisms: None Reported Past Surgical History: Heart Catheterization With Stent Additional Past Surgical History / Comment(s): total 3 cardiac stents, surgery for cyst in rectal area, siddharth cataracts uro lift, cysts removed from testicles Past Anesthesia/Blood Transfusion Reactions: No Reported Reaction Date of Last Stent Placement:: 2005 Past Psychological History: No Psychological Hx Reported Smoking Status: Current some day smoker Past Alcohol Use History: Occasional Past Drug Use History: None Reported General Exam Limitations: no limitations General appearance: alert, in no apparent distress Head exam: Present: atraumatic, normocephalic Eye exam: Present: normal appearance Neck exam: Present: normal inspection. Absent: tenderness, meningismus Respiratory exam: Present: normal lung sounds bilaterally. Absent: respiratory distress, wheezes Cardiovascular Exam: Present: regular rate, normal rhythm GI/Abdominal exam: Present: soft. Absent: distended, tenderness, guarding, rebound Rectal exam: Present: tenderness (Tenderness with exam), other (Scar tissue adjacent to the anus from previous abscess). Absent: black stool, bloody stool , hemorrhoids (No external hemorrhoids) Extremities exam: Present: normal inspection, tenderness, normal capillary refill. Absent: calf tenderness Neurological exam: Present: alert, oriented X3 Psychiatric exam: Present: normal affect, normal mood Skin exam: Present: warm, dry, intact. Absent: cyanosis, diaphoretic Course Vital Signs 02/14/18 02/14/18 10:05 10:36 Temperature 98.3 F Pulse Rate 66 73 Respiratory 20 18 Rate Blood Pressure 144/92 128/74 O2 Sat by Pulse 99 96 Oximetry Medical Decision Making - Medical Decision Making 72-year-old male with episode of bright red blood per rectum. Patient describes this episode is fairly significant. On exam there is no melena or bright red blood. Stool sample is heme positive. Patient has stable hemoglobin at 16.4. Colonoscopy from January 01 is reviewed, patient had internal hemorrhoids, posterior fissure, and several small polyps. His vital signs are normal. This was a single episode although described as quite significant. Patient will be kept in observation for monitoring. Hemoglobin will be repeated. Gastroenterology will be placed on consult. - Lab Data Result diagrams: 02/14/18 10:35 02/14/18 10:35 Lab Results 02/14/18 02/14/18 02/14/18 Range/Units 10:35 10:35 10:35 WBC 7.7 (3.8-10.6) k/uL RBC 5.34 (4.30-5.90) m/uL Hgb 16.4 (13.0-17.5) gm/dL Hct 50.6 (39.0-53.0) % MCV 94.6 (80.0-100.0) fL MCH 30.7 (25.0-35.0) pg MCHC 32.5 (31.0-37.0) g/dL RDW 12.8 (11.5-15.5) % Plt Count 210 (150-450) k/uL Neutrophils % 60 % Lymphocytes % 26 % Monocytes % 6 % Eosinophils % 5 % Basophils % 1 % Neutrophils # 4.6 (1.3-7.7) k/uL Lymphocytes # 2.0 (1.0-4.8) k/uL Monocytes # 0.5 (0-1.0) k/uL Eosinophils # 0.4 (0-0.7) k/uL Basophils # 0.0 (0-0.2) k/uL PT (9.0-12.0) sec INR (<1.2) APTT (22.0-30.0) sec Sodium 139 (137-145) mmol/L Potassium 5.3 H (3.5-5.1) mmol/L Chloride 106 (98-107) mmol/L Carbon Dioxide 25 (22-30) mmol/L Anion Gap 8 mmol/L BUN 15 (9-20) mg/dL Creatinine 1.13 (0.66-1.25) mg/dL Est GFR (CKD-EPI)AfAm 75 (>60 ml/min/1.73 sqM) Est GFR (CKD-EPI)NonAf 65 (>60 ml/min/1.73 sqM) Glucose 109 H (74-99) mg/dL Calcium 9.4 (8.4-10.2) mg/dL Magnesium 1.9 (1.6-2.3) mg/dL Total Bilirubin 0.9 (0.2-1.3) mg/dL AST 42 (17-59) U/L ALT 34 (21-72) U/L Alkaline Phosphatase 61 (38-126) U/L Total Creatine Kinase 57 (55-170) U/L CK-MB (CK-2) 2.7 H (0.0-2.4) ng/mL CK-MB (CK-2) Rel Index 4.7 Troponin I <0.012 (0.000-0.034) ng/mL Total Protein 7.0 (6.3-8.2) g/dL Albumin 4.0 (3.5-5.0) g/dL Stool Occult Blood (Negative) Blood Type Blood Type Recheck Antibody Screen Spec Expiration Date 02/14/18 02/14/18 02/14/18 Range/Units 10:35 10:35 10:35 WBC (3.8-10.6) k/uL RBC (4.30-5.90) m/uL Hgb (13.0-17.5) gm/dL Hct (39.0-53.0) % MCV (80.0-100.0) fL MCH (25.0-35.0) pg MCHC (31.0-37.0) g/dL RDW (11.5-15.5) % Plt Count (150-450) k/uL Neutrophils % % Lymphocytes % % Monocytes % % Eosinophils % % Basophils % % Neutrophils # (1.3-7.7) k/uL Lymphocytes # (1.0-4.8) k/uL Monocytes # (0-1.0) k/uL Eosinophils # (0-0.7) k/uL Basophils # (0-0.2) k/uL PT 10.0 (9.0-12.0) sec INR 1.0 (<1.2) APTT 23.0 (22.0-30.0) sec Sodium (137-145) mmol/L Potassium (3.5-5.1) mmol/L Chloride (98-107) mmol/L Carbon Dioxide (22-30) mmol/L Anion Gap mmol/L BUN (9-20) mg/dL Creatinine (0.66-1.25) mg/dL Est GFR (CKD-EPI)AfAm (>60 ml/min/1.73 sqM) Est GFR (CKD-EPI)NonAf (>60 ml/min/1.73 sqM) Glucose (74-99) mg/dL Calcium (8.4-10.2) mg/dL Magnesium (1.6-2.3) mg/dL Total Bilirubin (0.2-1.3) mg/dL AST (17-59) U/L ALT (21-72) U/L Alkaline Phosphatase (38-126) U/L Total Creatine Kinase (55-170) U/L CK-MB (CK-2) (0.0-2.4) ng/mL CK-MB (CK-2) Rel Index Troponin I (0.000-0.034) ng/mL Total Protein (6.3-8.2) g/dL Albumin (3.5-5.0) g/dL Stool Occult Blood Positive (Negative) Blood Type B Positive Blood Type Recheck No Antibody Screen NEGATIVE Spec Expiration Date 02/17/2018 - 2335 Disposition Clinical Impression: Hematochezia Disposition: ADMITTED IP TO THIS [facility] Condition: Stable Is patient prescribed a controlled substance at d/c from ED?: No Referrals: Deanna Kate MD [Primary Care Provider] - 1-2 days Decision to Admit Reason: Admit from EC Decision Date: 02/14/18 Decision Time: 12:37
[2018-02-14 10:52] LABS: Basophils % (A) 1 %; Eosinophils # (A) 0.4 k/uL (0-0.7); Eosinophils % (A) 5 %; HCT 50.6 % (39.0-53.0); HGB 16.4 gm/dL (13.0-17.5); Lymphocytes % (A) 26 %; MCH 30.7 pg (25.0-35.0); MCHC 32.5 g/dL (31.0-37.0); MCV 94.6 fL (80.0-100.0); Mean Platelet Volume 6.6; Monocytes # (A) 0.5 k/uL (0-1.0); Monocytes % (A) 6 %; Neutrophils # (A) 4.6 k/uL (1.3-7.7); Neutrophils % (A) 60 %; Platelet Count 210 k/uL (150-450); RBC 5.34 m/uL (4.30-5.90); RDW 12.8 % (11.5-15.5); WBC 7.7 k/uL (3.8-10.6)
[2018-02-14 11:03] LABS: Calcium 9.4 mg/dL (8.4-10.2); Magnesium 1.9 mg/dL (1.6-2.3); Total Bilirubin 0.9 mg/dL (0.2-1.3)
[2018-02-14 11:14] LABS: Potassium 5.3 mmol/L (3.5-5.1)
[2018-02-14 11:17] LABS: Creatine Kinase 57 U/L (55-170)
[2018-02-14 11:29] LABS: Creatine Kinase MB 2.7 ng/mL (0.0-2.4); Troponin I <0.012 ng/mL (0.000-0.034)
[2018-02-14] MEDS ORDERED: NALOXONE 0.4 MG/ML 1 ML VIAL IV PRN (12:37)
[2018-02-14] MEDS: SODIUM CHLORIDE 0.9% 1,000 ML IV SCH (13:40)
[2018-02-14 14:15] VITALS: BMI 32.5
--- NOTE | 2018-02-14 14:30 | P.HPIM ---
History of Present Illness 70-year-old gentleman came in with an episode of bright blood per rectum. Patient had a colonoscopy recently for the similar symptoms found to have a hemorrhoids nonbleeding diverticulosis and a fissure in the rectal area at that time. Patient denied any constipation. Patient denied any fever chills nausea vomiting. Patient denied any abdominal pain. Patient hemoglobin is stable at 16 now. Hemoglobin and will be obtained tomorrow monitored overnight gastroneurology will be consulted. Patient uses aspirin for his coronary artery disease and multiple stents years ago. This can be held if needed by gastroenterology Review of Systems REVIEW OF SYSTEMS: CONSTITUTIONAL: No fever, no malaise, no fatigue. HEENT: No recent visual problems or hearing problems. Denied any sore throat. CARDIOVASCULAR: No chest pain, orthopnea, PND, no palpitations, no syncope. PULMONARY: No shortness of breath, no cough, no hemoptysis. GASTROINTESTINAL: No diarrhea, no nausea, no vomiting, no abdominal pain. Normoactive bowel sounds. NEUROLOGICAL: No headaches, no weakness, no numbness. HEMATOLOGICAL: Denies any bleeding or petechiae. GENITOURINARY: Denies any burning micturition, frequency, or urgency. MUSCULOSKELETAL/RHEUMATOLOGICAL: Denies any joint pain, swelling, or any muscle pain. ENDOCRINE: Denies any polyuria or polydipsia. The rest of the 14-point review of systems is negative. Past Medical History Past Medical History: Chest Pain / Angina, COPD, GERD/Reflux, GI Bleed, Myocardial Infarction ([place]), Skin Disorder Additional Past Medical History / Comment(s): gout, chronic sore rectal area Last Myocardial Infarction Date:: 2005 History of Any Multi-Drug Resistant Organisms: None Reported Past Surgical History: Heart Catheterization With Stent Additional Past Surgical History / Comment(s): total 3 cardiac stents, surgery for cyst in rectal area, siddharth cataracts uro lift, cysts removed from testicles Past Anesthesia/Blood Transfusion Reactions: No Reported Reaction Date of Last Stent Placement:: 2005 Past Psychological History: No Psychological Hx Reported Smoking Status: Former smoker Past Alcohol Use History: Occasional Past Drug Use History: None Reported - Past Family History Father Family Medical History: Cancer Medications and Allergies Home Medications Medication Instructions Recorded Confirmed Type Allopurinol [Zyloprim] 100 mg PO DAILY 03/02/16 02/14/18 History Aspirin [Adult Low Dose Aspirin EC] 81 mg PO DAILY 03/02/16 02/14/18 History Furosemide [Lasix] 20 mg PO DAILY 03/02/16 02/14/18 History Lisinopril [Zestril] 10 mg PO DAILY 03/02/16 02/14/18 History Mometasone/Formoterol [Dulera 100 2 puff INHALATION RT-BID 03/02/16 02/14/18 History Mcg/5 Mcg Inhaler] Finasteride [Proscar] 5 mg PO DAILY 12/29/17 02/14/18 History Metoprolol Succinate [Toprol Xl] 50 mg PO DAILY 12/29/17 02/14/18 History Multivitamins, Thera [Multivitamin 1 tab PO DAILY 12/29/17 02/14/18 History (formulary)] Tamsulosin HCl [Flomax] 0.4 mg PO HS 12/29/17 02/14/18 History Pravastatin Sodium [Pravachol] 20 mg PO DAILY 02/14/18 02/14/18 History Ranitidine HCl 150 mg PO HS 02/14/18 02/14/18 History Wheat Dextrin [Benefiber] 1 each PO DAILY 02/14/18 02/14/18 History Allergies Allergy/AdvReac Type Severity Reaction Status Date / Time No Known Allergies Allergy Verified 02/14/18 10:06 Physical Exam Vitals: Vital Signs Temp Pulse Resp BP Pulse Ox 02/14/18 13:42 98.1 F 02/14/18 13:41 74 18 130/78 99 02/14/18 10:36 73 18 128/74 96 02/14/18 10:05 98.3 F 66 20 144/92 99 Intake and Output 02/13/18 02/14/18 02/14/18 22:59 06:59 14:59 Intake Total 400 Balance 400 Intake: IV 400 Sodium Chloride 0.9% 1, 400 000 ml @ 50 mls/hr IV . [facility] Rx#:[id number] Other: Weight 108.862 kg PHYSICAL EXAMINATION: GENERAL: The patient is alert and oriented x3, not in any acute distress. Well developed, well nourished. HEENT: Pupils are round and equally reacting to light. EOMI. No scleral icterus. No conjunctival pallor. Normocephalic, atraumatic. No pharyngeal erythema. No thyromegaly. CARDIOVASCULAR: S1 and S2 present. No murmurs, rubs, or gallops. PULMONARY: Minimal expiratory wheezing fairly good air entry into bilateral lung andino. ABDOMEN: Soft, nontender, nondistended, normoactive bowel sounds. No palpable organomegaly. MUSCULOSKELETAL: No joint swelling or deformity. EXTREMITIES: No cyanosis, clubbing, or pedal edema. NEUROLOGICAL: Gross neurological examination did not reveal any focal deficits. SKIN: No rashes. Results CBC & Chem 7: 02/14/18 10:35 02/14/18 10:35 Labs: Abnormal Lab Results - Last 24 Hours (Table) 02/14/18 02/14/18 Range/Units 10:35 10:35 Potassium 5.3 H (3.5-5.1) mmol/L Glucose 109 H (74-99) mg/dL CK-MB (CK-2) 2.7 H (0.0-2.4) ng/mL Thrombosis Risk Factor Assmnt - Choose All That Apply Each Factor Represents 1 point: Abnormal pulmonary function (COPD), Obesity ( BMI >25) Each Risk Factor Represents 2 Points: Age 61-74 years Thrombosis Risk Factor Assessment Total Risk Factor Score: 4 Thrombosis Risk Factor Assessment Level: Moderate Risk Assessment and Plan Plan: -Lower GI bleed: Most probably hemorrhoidal in nature. Will be monitored overnight repeat hemoglobin tomorrow. Gastroenterology will evaluate the patient -Coronary artery disease -Hypertension -Benign prostatic hypertrophic -Hyperlipidemia -COPD: Patient is not in significant exacerbation but was complaining of cough and also wheezing on exam patient will be started on inhaled steroids and albuterol ipratropium as needed basis inhalational. Former smoker.
[2018-02-14] MEDS ORDERED: IPRATROPIUM-ALBUTEROL 3 ML NEB INHALATION PRN (14:31)
[2018-02-14 17:18] LABS: Basophils % (A) 0 %; Eosinophils # (A) 0.3 k/uL (0-0.7); Eosinophils % (A) 4 %; HCT 48.6 % (39.0-53.0); HGB 15.8 gm/dL (13.0-17.5); Lymphocytes # (A) 2.3 k/uL (1.0-4.8); Lymphocytes % (A) 28 %; MCH 31.6 pg (25.0-35.0); MCHC 32.5 g/dL (31.0-37.0); MCV 97.1 fL (80.0-100.0); Mean Platelet Volume 6.3; Monocytes # (A) 0.6 k/uL (0-1.0); Monocytes % (A) 7 %; Neutrophils # (A) 4.8 k/uL (1.3-7.7); Neutrophils % (A) 58 %; Platelet Count 202 k/uL (150-450); RBC 5.01 m/uL (4.30-5.90); WBC 8.2 k/uL (3.8-10.6)
[2018-02-14] MEDS: SYMBICORT 80-4.5 MCG INHALER INHALATION SCH (19:32)
[2018-02-14] MEDS: FAMOTIDINE 20 MG TAB PO SCH (20:15)
[2018-02-14] MEDS ORDERED: TAMSULOSIN 0.4 MG CAP.ER.24H PO SCH (21:00)
[2018-02-15 06:40] VITALS: BP 100/67; PULSE 73; RESP 16; TEMP 97
[2018-02-15] MEDS: SYMBICORT 80-4.5 MCG INHALER INHALATION SCH (06:58)
[2018-02-15] MEDS: SODIUM CHLORIDE 0.9% 1,000 ML IV SCH (07:31)
[2018-02-15] MEDS: FAMOTIDINE 20 MG TAB PO SCH (07:32)
[2018-02-15 08:47] LABS: HCT 48.3 % (39.0-53.0); MCH 31.9 pg (25.0-35.0); MCHC 33.1 g/dL (31.0-37.0); MCV 96.2 fL (80.0-100.0); Mean Platelet Volume 6.2; Platelet Count 207 k/uL (150-450); RBC 5.02 m/uL (4.30-5.90); WBC 6.5 k/uL (3.8-10.6)
[2018-02-15] MEDS ORDERED: METOPROLOL SUCCINATE (ER) 50 MG TAB.ER.24H PO SCH (09:00)
[2018-02-15] MEDS ORDERED: FINASTERIDE 5 MG TAB PO SCH (09:00)
[2018-02-15] MEDS ORDERED: ALLOPURINOL 100 MG TAB PO SCH (09:00)
[2018-02-15] MEDS ORDERED: ASPIRIN 81 MG PO SCH (09:00)
[2018-02-15] MEDS ORDERED: PRAVASTATIN SODIUM 20 MG TAB PO SCH (09:00)
[2018-02-15] MEDS ORDERED: LISINOPRIL 10 MG TAB PO SCH (09:00)
--- NOTE | 2018-02-15 10:23 | P.CONS ---
History of Present Illness - Reason for Consult Consult date: 02/15/18 Rectal bleeding Requesting physician: Francie Reed - Chief Complaint Rectal bleeding - History of Present Illness 72-year-old male presents with intermittent acute rectal bleeding for more than a month. He underwent colonoscopy evaluation last month 01/01/2018 with findings of internal hemorrhoids, superficial posterior rectal fissure, sigmoid diverticulosis with no evidence of acute diverticulitis or strictures. Biopsies resulted fragment of tubulovillous adenoma and hyperplastic polyp. Patient describes the rectal bleeding as his bowel movements being coated with blood. Some mild tenderness around the anal opening. Denies melena or hematemesis. Denies abdominal pain. He has been taking fiber supplements twice a day. He has not tried local hemorrhoidal or fissure treatment. Hemoglobin 16. Platelet 207. White count 6.5. INR 1.0. Review of Systems Constitutional: Denies fever, chills, sweats, weight gain, or loss. HEENT: Negative for migraines, blurred vision or loss, earaches, drainage, tinnitus, oral mucosal lesions, dysphagia, or odynophagia. Cardiac: Negative for chest pain, arrhythmias, or palpitation. Respiratory: Negative for shortness of breath, hemoptysis, cough, or sputum production. Gastrointestinal: See HPI for pertinent findings. Genitourinary: Negative for hematuria, urgency, frequency, polyuria, dysuria, or penile discharge. Musculoskeletal: Negative for muscle aches, swelling, arthritis, and arthralgias. Neurologic: Negative for stroke or TIA. Endocrine: Negative for thyroid problems. Skin: Negative for rash or itching. Psychiatric: Negative history for depression and anxiety Past Medical History Past Medical History: Chest Pain / Angina, COPD, GERD/Reflux, GI Bleed, Myocardial Infarction ([place]), Skin Disorder Additional Past Medical History / Comment(s): gout, chronic sore rectal area Last Myocardial Infarction Date:: 2005 History of Any Multi-Drug Resistant Organisms: None Reported Past Surgical History: Heart Catheterization With Stent Additional Past Surgical History / Comment(s): total 3 cardiac stents, surgery for cyst in rectal area, siddharth cataracts uro lift, cysts removed from testicles Past Anesthesia/Blood Transfusion Reactions: No Reported Reaction Date of Last Stent Placement:: 2005 Past Psychological History: No Psychological Hx Reported Smoking Status: Former smoker Past Alcohol Use History: Occasional Past Drug Use History: None Reported - Past Family History Father Family Medical History: Cancer Medications and Allergies Home Medications Medication Instructions Recorded Confirmed Type Allopurinol [Zyloprim] 100 mg PO DAILY 03/02/16 02/14/18 History Aspirin [Adult Low Dose Aspirin EC] 81 mg PO DAILY 03/02/16 02/14/18 History Furosemide [Lasix] 20 mg PO DAILY 03/02/16 02/14/18 History Lisinopril [Zestril] 10 mg PO DAILY 03/02/16 02/14/18 History Mometasone/Formoterol [Dulera 100 2 puff INHALATION RT-BID 03/02/16 02/14/18 History Mcg/5 Mcg Inhaler] Finasteride [Proscar] 5 mg PO DAILY 12/29/17 02/14/18 History Metoprolol Succinate [Toprol Xl] 50 mg PO DAILY 12/29/17 02/14/18 History Multivitamins, Thera [Multivitamin 1 tab PO DAILY 12/29/17 02/14/18 History (formulary)] Tamsulosin HCl [Flomax] 0.4 mg PO HS 12/29/17 02/14/18 History Pravastatin Sodium [Pravachol] 20 mg PO DAILY 02/14/18 02/14/18 History Ranitidine HCl 150 mg PO HS 02/14/18 02/14/18 History Wheat Dextrin [Benefiber] 1 each PO DAILY 02/14/18 02/14/18 History Allergies Allergy/AdvReac Type Severity Reaction Status Date / Time No Known Allergies Allergy Verified 02/14/18 10:06 Physical Exam Vitals: Vital Signs Temp Pulse Pulse Pulse Resp BP BP 02/15/18 06:39 97.0 F L 73 16 100/67 02/14/18 22:56 97.1 F L 82 18 126/80 02/14/18 17:58 60 02/14/18 15:00 97.8 F 58 L 20 125/76 02/14/18 13:42 98.1 F 02/14/18 13:41 74 18 130/78 02/14/18 10:36 73 18 128/74 Pulse Ox 02/15/18 06:39 95 02/14/18 22:56 96 02/14/18 17:58 02/14/18 15:00 96 02/14/18 13:42 02/14/18 13:41 99 02/14/18 10:36 96 Intake and Output 02/14/18 02/15/18 02/15/18 22:59 06:59 14:59 Intake Total 300 240 Balance 300 240 Intake: Oral 300 240 Other: # Voids 3 2 General appearance: The patient is alert, oriented, in no acute distress. HET: Head is normocephalic and atraumatic. Pupils are equal and reactive. Oropharynx is clear without lesions. Neck: Supple without lymphadenopathy. Trachea midline. Heart: S1 S2. Regular rate and rhythm. Lungs: No crackles or wheezes are heard. Abdomen: Soft, nontender, nondistended with bowel sounds. No peritoneal signs. No palpable organomegaly or masses. Extremities: Normal skin color and turgor. No cyanosis, rash, ulceration, clubbing, or edema. Radial and pedal pulses are 2/4 bilaterally. Neurological: No focal deficits. Strength and sensation are grossly intact. Rectal: Evidence of old dark blood around the anal orifice. Palpable internal hemorrhoids felt as well as a posterior fissure. No blood on finger. Results CBC & Chem 7: 02/15/18 07:54 02/14/18 10:35 Labs: Abnormal Lab Results - Last 24 Hours (Table) 02/14/18 02/14/18 Range/Units 10:35 10:35 Potassium 5.3 H (3.5-5.1) mmol/L Glucose 109 H (74-99) mg/dL CK-MB (CK-2) 2.7 H (0.0-2.4) ng/mL Assessment and Plan (1) Rectal bleeding Narrative/Plan: Acute on chronic rectal bleeding felt to be related to internal hemorrhoids and superficial posterior rectal fissure without acute blood loss. Status post colonoscopy 1 month ago with findings of internal hemorrhoids, superficial posterior rectal fissure and sigmoid diverticulosis. Current Visit: Yes Status: Acute Code(s): K62.5 - HEMORRHAGE OF ANUS AND RECTUM SNOMED Code(s): 84400170 Plan: 1. Anusol-HC suppository 25 mg daily at bedtime. Return to office in 2-3 weeks. Stool softeners advised. Hold fiber supplementation 1 week then restart daily. Twice daily fiber supplementation may be making his stools too bulky and irritating hemorrhoids and fissure. Soft diet. Discharge per medicine. Thank you for this kind referral and the opportunity to participate in the care of your patient. This consultation was discussed with Dr. Art. The impression and plan of care have been directed as dictated.
--- NOTE | 2018-02-15 23:03 | DS ---
DISCHARGE SUMMARY FINAL DIAGNOSES: 1. Lower gastrointestinal bleed for possibly most likely from hemorrhoidal bleeding with stable hemoglobin. 2. Coronary artery disease. 3. Hypertension. 4. Benign prostatic hypertrophy. 5. Hyperlipidemia. 6. Chronic obstructive pulmonary disease. DISCHARGE DISPOSITION: The patient is being discharged in stable condition with guarded prognosis. HISTORY OF PRESENT ILLNESS: This 70-year-old gentleman with a past medical history of multiple medical problems was admitted with GI bleed. The patient's hemoglobin is closely monitored, which is stable and Gastroenterology recommended further local treatment. On exam, vital signs are stable. Cardiovascular: Normal. Abdomen soft. Nervous system: No focal deficits. Patient being discharged in stable condition with guarded prognosis. LABORATORY DATA: Hemoglobin 16. Other labs are noted. DISCHARGE ADVICE AND MEDICATION: 1. Diet is cardiac diet. 2. Activity limited until followup. 3. No NSAIDs or anticoagulants for now. f/u dr hannah mosley and dr bustillo MEDICATIONS: 1. Zyloprim 100 mg p.o. daily. 2. Hold Ecotrin for now. 3. Proscar 5 mg b.i.d. 4. Lasix 20 mg. 5. Zestril 10 mg. 6. Toprol-XL 50 mg. 7. Dulera 2 puffs daily. 8. Multivitamins one daily. 9. Propofol 20 mg b.i.d. 10.Ranitidine 120 mg q.h.s. 11.Flomax 0.4 q.h.s. 12.Benefiber 1 daily. 13.anusol hc q.h.s. 14.Colace 100 mg p.o. b.i.d. Once again the patient is being discharged in stable condition with guarded prognosis. MMODL / IJN: [id number] / [facility]
== END 2018-02-15 14:17 | disposition home or self-care (01) ==
LOC: EC 09:57 → 4MS4W 12:37
PROVIDERS: ADMIT Internal Medicine; ATTEND Internal Medicine
DX: K92.2 Gastrointestinal hemorrhage, unspecified (principal); K64.8 Other hemorrhoids; I25.10 Atherosclerotic heart disease of native coronary artery without angina pectoris; I10 Essential (primary) hypertension; N40.0 Benign prostatic hyperplasia without lower urinary tract symptoms; E78.5 Hyperlipidemia, unspecified; J44.9 Chronic obstructive pulmonary disease, unspecified; Z79.82 Long term (current) use of aspirin; Z79.51 Long term (current) use of inhaled steroids; Z79.899 Other long term (current) drug therapy; K21.9 Gastro-esophageal reflux disease without esophagitis; I25.2 Old myocardial infarction; M10.9 Gout, unspecified; Z95.5 Presence of coronary angioplasty implant and graft; F17.200 Nicotine dependence, unspecified, uncomplicated; Z80.9 Family history of malignant neoplasm, unspecified; E66.9 Obesity, unspecified; Z68.32 Body mass index [BMI] 32.0-32.9, adult
CPT/HCPCS: 99285; 36415; 94640 ×2; 93005; 86900; 86901; 80053; 82550; 82553; 83735; 84484; 85025; 85027; 85610; 85730; 86850; 82272; G0378 ×2; S0138

== ENCOUNTER → 2018-04-04 | Outpatient (CLI) | payer MEDICARE ==
--- NOTE | 2018-04-04 08:10 | US ---
EXAMINATION TYPE: US duplex aorta DATE OF EXAM: 04/04/2018 COMPARISON: NONE CLINICAL HISTORY: I10 HTN,E78.2 HYPERLIPIDEMIA,Z87.891 FORMER SMOKER. High cholesterol, former smoker x 1 year, No family hx of AAA, HTN EXAM MEASUREMENTS: Abdominal Aorta: Proximal: Obscured by overlying bowel gas Mid: Obscured by overlying bowel gas Distal: Obscured by overlying bowel gas Bifurcation: Obscured by overlying bowel gas Extremely limited exam bowel gas and body habitus. Unable to visualize entire Aorta both supine and L LD. IMPRESSION: Nondiagnostic examination.
== END | disposition home or self-care (01) ==
LOC: RADUSWWP 07:20
PROVIDERS: ATTEND Family Medicine
DX: Z13.6 Encounter for screening for cardiovascular disorders (principal); I10 Essential (primary) hypertension; E78.2 Mixed hyperlipidemia; Z87.891 Personal history of nicotine dependence
CPT/HCPCS: 93979

== ENCOUNTER → 2018-05-30 | Outpatient (CLI) | payer MEDICARE ==
--- NOTE | 2018-05-30 15:39 | XR ---
EXAMINATION TYPE: XR chest 2V DATE OF EXAM: 05/30/2018 COMPARISON: Chest x-rays from 2012 and 2016. HISTORY: Pneumonia per order. TECHNIQUE: Frontal and lateral views of the chest are obtained. FINDINGS: There is chronic emphysematous change with right basilar opacity on frontal view less well seen on lateral view but likely confined to the middle lobe. The cardiac silhouette size is stable and upper limits of normal. The osseous structures are intact. IMPRESSION: Chronic emphysematous and parenchymal fibrotic changes with suspected patchy right middl e lobe acute infiltrate and/or atelectasis.
== END | disposition home or self-care (01) ==
LOC: LABWHC1 14:21
PROVIDERS: ATTEND Family Medicine
DX: J43.9 Emphysema, unspecified (principal); J84.10 Pulmonary fibrosis, unspecified; R05 Cough; R50.9 Fever, unspecified; R06.2 Wheezing
CPT/HCPCS: 71046; 87502

== ENCOUNTER 2018-09-27 09:30 | Observation (INO) | payer MEDICARE ==
[2018-09-27] MEDS ORDERED: AZITHROMYCIN 500 MG in SODIUM CHLORIDE 0.9% 250 ML IVPB STA (09:51)
[2018-09-27] MEDS ORDERED: SODIUM CHLORIDE 0.9% 500 ML 500 ML IV STA (09:51)
[2018-09-27] MEDS ORDERED: IPRATROPIUM-ALBUTEROL 3 ML NEB INHALATION STA ×3 (09:51→11:54)
[2018-09-27] MEDS ORDERED: methylPREDNISolone SOD SUCCI 125 MG/2 ML VIAL IV STA (09:51)
--- NOTE | 2018-09-27 09:58 | ED ---
SOB HPI <Pratik Perez - Last Filed: 09/27/18 11:58> - General Source: patient Mode of arrival: ambulatory Limitations: no limitations <Sailaja Byrne - Last Filed: 09/27/18 19:35> - General Chief Complaint: Shortness of Breath Stated Complaint: JASMIN Time Seen by Provider: 09/27/18 09:48 - History of Present Illness Initial Comments: 73-year-old male past medical history of coronary artery disease status post stent placement, COPD current smoker history of pneumonia presenting today for chief complaint of difficulty breathing, possible pneumonia. Patient states that he had pneumonia in the winter months. He states he was treated outpatient. Patient states that for the past 4 days he has had rigors, chills, he states that he has had a cough congestion, and increasing shortness of breath. He states the shortest breath increases with ambulation. Patient states she has had leg swelling or months. 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 Patient denies known history of heart failure. Patient denies any chest pain he denies any upper back pain denies nausea vomiting epi gastric or abdominal pain. He denies any jaw pain or upper extremity paresthesias. Patient states this feels similar to his COPD exacerbation and when he had pneumonia in the past. Patient denies any recent surgical procedures/travel he denies hemoptysis he does admit to sputum production. Patient denies any unilateral leg swelling history of DVT or pulmonary embolism he denies any clotting disorders. Patient states that he presented to his primary care provider's office due to the upper respiratory symptoms and increasing shortness of breath or a chest x-rays obtained concerning for poss ible developing pneumonia. Patient was then sent to the emergency department for further evaluation and treatment. Upon arrival patient has obvious upper respiratory symptoms, heart rate 101 saturating at 95% on room air. Patient does not appear in distress. (Sailaja Byrne) - Related Data Home Medications Medication Instructions Recorded Confirmed Allopurinol [Zyloprim] 100 mg PO DAILY 03/02/16 09/27/18 Aspirin [Adult Low Dose Aspirin EC] 81 mg PO DAILY 03/02/16 09/27/18 Furosemide [Lasix] 20 mg PO DAILY 03/02/16 09/27/18 Lisinopril [Zestril] 10 mg PO DAILY 03/02/16 09/27/18 Mometasone/Formoterol [Dulera 100 2 puff INHALATION RT-BID 03/02/16 09/27/18 Mcg/5 Mcg Inhaler] Metoprolol Succinate [Toprol Xl] 50 mg PO DAILY 12/29/17 09/27/18 Multivitamins, Thera [Multivitamin 1 tab PO DAILY 12/29/17 09/27/18 (formulary)] Tamsulosin HCl [Flomax] 0.4 mg PO HS 12/29/17 09/27/18 Pravastatin Sodium [Pravachol] 20 mg PO DAILY 02/14/18 09/27/18 Ranitidine HCl 150 mg PO HS PRN 02/14/18 09/27/18 Albuterol Nebulized [Ventolin 2.5 mg INHALATION RT-Q6H PRN 09/27/18 09/27/18 Nebulized] Ezetimibe [Zetia] 10 mg PO DAILY 09/27/18 09/27/18 Pantoprazole [Protonix] 40 mg PO DAILY 09/27/18 09/27/18 Previous Rx's Medication Instructions Recorded Sennosides-Docusate Sodium 1 tab PO BID #60 tablet 02/15/18 [Senokot-S] Allergies Allergy/AdvReac Type Severity Reaction Status Date / Time No Known Allergies Allergy Verified 09/27/18 10:39 Review of Systems ROS Other: All systems not noted in ROS Statement are negative. <Pratik Perez - Last Filed: 09/27/18 11:58> ROS Other: All systems not noted in ROS Statement are negative. <Sailaja Byrne - Last Filed: 09/27/18 19:35> ROS Statement: Those systems with pertinent positive or pertinent negative responses have been documented in the HPI. Past Medical History Past Medical History: Chest Pain / Angina, COPD, GERD/Reflux, GI Bleed, Myocardial Infarction ([place]), Skin Disorder Additional Past Medical History / Comment(s): gout, chronic sore rectal area Last Myocardial Infarction Date:: approx 2005 History of Any Multi-Drug Resistant Organisms: None Reported Past Surgical History: Heart Catheterization With Stent Additional Past Surgical History / Comment(s): total 3 cardiac stents, surgery for cyst in rectal area, siddharth cataracts uro lift, cysts removed from testicles Past Anesthesia/Blood Transfusion Reactions: No Reported Reaction Date of Last Stent Placement:: 2005 Past Psychological History: No Psychological Hx Reported Smoking Status: Former smoker Past Alcohol Use History: Occasional Past Drug Use History: None Reported - Past Family History Father Family Medical History: Cancer Mother Family Medical History: No Reported History Additional Family Medical History / Comment(s): Mother was healthy and lived to be in her 90s. <Sailaja Byrne - Last Filed: 09/27/18 19:35> General Exam Limitations: no limitations <Sailaja Byrne - Last Filed: 09/27/18 19:35> - General Exam Comments Initial Comments: General: The patient is awake and alert, in no distress, appears short of breat h but not in respiratory distress Eye: +3 mm pupils are equal, round and reactive to light, extra-ocular movements are intact. No nystagmus. There is normal conjunctiva bilaterally. No signs of icterus. No photophobia Ears, nose, mouth and throat: There are moist mucous membranes and no oral lesions. Oropharynx was not erythematous there is no tonsillar enlargement exudates or lesions. Uvula midline. Tympanic membranes are not erythematous or is no effusions bulging or retraction. No tenderness to palpation of the mastoid. No anterior cervical lymphadenopathy. Rhinorrhea, clear and bilateral nares. No tripoding, no drooling. Neck: The neck is supple, there is no tenderness or JVD. No nuchal rigidity Cardiovascular: There is a regular rate and rhythm. No murmur, rub or gallop is appreciated. Respiratory: Lungs are clear to auscultation, respirations are non-labored, breath sounds are equal. Expiratory wheeze. Diminished lung sounds in all fie lds No stridor. Questionable rales, rhonchi present. Mild abdominal breathing. Gastrointestinal: Soft, non-distended, non-tender abdomen without masses or organomegaly noted. There is no rebound or guarding present. Bowel sounds are unremarkable. Musculoskeletal: Normal ROM, no tenderness. Strength 5/5. Sensation intact. Radial and DP pulses equal bilaterally 2+. Neurological: A&O x 3. CN II-XII intact, There are no obvious motor or sensory deficits. Coordination appears grossly intact. Speech appears normal, no muffling. Skin: Skin is warm and dry and no rashes or lesions are noted. B/l LE pitting edema of the dorsum of the feet. Psychiatric: Cooperative (Sailaja Byrne) Course <Pratik Perez - Last Filed: 09/27/18 11:58> Vital Signs 09/27/18 09/27/18 09/27/18 09:38 10:01 10:13 Temperature 98.6 F Pulse Rate 101 H 84 91 Respiratory 22 Rate Blood Pressure 125/81 O2 Sat by Pulse 95 Oximetry 09/27/18 09/27/18 09/27/18 10:30 11:00 11:21 Temperature Pulse Rate 94 85 80 Respiratory 16 18 Rate Blood Pressure O2 Sat by Pulse 92 L 92 L Oximetry 09/27/18 09/27/18 09/27/18 11:30 11:32 12:00 Temperature Pulse Rate 86 87 89 Respiratory 23 17 Rate Blood Pressure 101/67 121/75 O2 Sat by Pulse 99 91 L Oximetry 09/27/18 09/27/18 09/27/18 12:06 12:17 12:30 Temperature Pulse Rate 79 83 84 Respiratory 15 Rate Blood Pressure 119/74 O2 Sat by Pulse 90 L Oximetry - Reevaluation(s) Reevaluation #1: 09/27/18 11:58 PA supervision: I proceeded [id number] evaluation the patient does present with complaints of shortness of breath also rhinorrhea with a fever. He does demonstrate COPD exacerbation as well as upper respiratory infection is been refractory to treatment. Patient will be admitted for inpatient treatment. Case is discussed with Dr. Obrien. I do agree with the assessment and plan. Patient is a former smoker who quit about one half years ago. X-ray does show evidence of a right lower lobe infiltrate. He states he has had this in the past. (Pratik Perez) Medical Decision Making - Lab Data Result diagrams: 09/27/18 10:06 09/27/18 10:06 <Pratik Perez - Last Filed: 09/27/18 11:58> - Lab Data Result diagrams: 09/27/18 10:06 09/27/18 10:06 <Sailaja Byrne - Last Filed: 09/27/18 19:35> - Medical Decision Making 73-year-old male presenting today for chief complaint of shortness of breath. Patient states this feels identical to previous COPD exacerbation and when he had pneumonia in the past. Patient admits to fever chills. Patient has upper respiratory symptoms on examination. Lungs sounds are very diminished. He continues to have excessive wheezing expiratory upon reexamination after multiple DuoNeb treatments. A total of 30 metacarpal care time was spent with patient.Patient's laboratory studies revealed a leukocytosis. Mild elevation of creatinine with elevated glucose. Troponin negative. Mild elevation of transaminases. Patient has no abdominal pain on examination. At this time given patient's continued wheezing despite treatment I will admit patient for every 4 hours DuoNeb treatment daily steroids with reevaluation by medicine. Patient is agreeable plan. EKG revealed no acute changes this was reviewed by attending provider Dr. Perez who patient in person he is agreeable care plan as well as admission at this time. Patient transferred to floor in stable condition. Well after attending provider spoke with the admitting provider Dr. Obrien. (Sailaja Byrne) - Lab Data Lab Results 09/27/18 09/27/18 09/27/18 Range/Units 10:06 10:06 10:06 WBC 7.5 (3.8-10.6) k/uL RBC 5.16 (4.30-5.90) m/uL Hgb 16.9 (13.0-17.5) gm/dL Hct 48.9 (39.0-53.0) % MCV 94.8 (80.0-100.0) fL MCH 32.7 (25.0-35.0) pg MCHC 34.5 (31.0-37.0) g/dL RDW 13.2 (11.5-15.5) % Plt Count 179 (150-450) k/uL Neutrophils % 74 % Lymphocytes % 12 % Monocytes % 7 % Eosinophils % 4 % Basophils % 0 % Neutrophils # 5.6 (1.3-7.7) k/uL Lymphocytes # 0.9 L (1.0-4.8) k/uL Monocytes # 0.5 (0-1.0) k/uL Eosinophils # 0.3 (0-0.7) k/uL Basophils # 0.0 (0-0.2) k/uL PT (9.0-12.0) sec INR (<1.2) APTT (22.0-30.0) sec Sodium 137 (137-145) mmol/L Potassium 4.2 (3.5-5.1) mmol/L Chloride 102 (98-107) mmol/L Carbon Dioxide 24 (22-30) mmol/L Anion Gap 11 mmol/L BUN 13 (9-20) mg/dL Creatinine 1.42 H (0.66-1.25) mg/dL Est GFR (CKD-EPI)AfAm 57 (>60 ml/min/1.73 sqM) Est GFR (CKD-EPI)NonAf 49 (>60 ml/min/1.73 sqM) Glucose 182 H (74-99) mg/dL Calcium 9.5 (8.4-10.2) mg/dL Total Bilirubin 1.4 H (0.2-1.3) mg/dL AST 68 H (17-59) U/L ALT 78 H (21-72) U/L Alkaline Phosphatase 77 (38-126) U/L Troponin I (0.000-0.034) ng/mL NT-Pro-B Natriuret Pep 131 pg/mL Total Protein 7.2 (6.3-8.2) g/dL Albumin 4.4 (3.5-5.0) g/dL Urine Color Urine Appearance (Clear) Urine pH (5.0-8.0) Ur Specific Frederic (1.001-1.035) Urine Protein (Negative) Urine Glucose (UA) (Negative) Urine Ketones (Negative) Urine Blood (Negative) Urine Nitrite (Negative) Urine Bilirubin (Negative) Urine Urobilinogen (<2.0) mg/dL Ur Leukocyte Esterase (Negative) Urine WBC (0-5) /hpf Urine Mucus (None) /hpf Influenza Type A RNA (Not Detectd) Influenza Type B (PCR) (Not Detectd) 09/27/18 09/27/18 09/27/18 Range/Units 10:06 10:06 10:30 WBC (3.8-10.6) k/uL RBC (4.30-5.90) m/uL Hgb (13.0-17.5) gm/dL Hct (39.0-53.0) % MCV (80.0-100.0) fL MCH (25.0-35.0) pg MCHC (31.0-37.0) g/dL RDW (11.5-15.5) % Plt Count (150-450) k/uL Neutrophils % % Lymphocytes % % Monocytes % % Eosinophils % % Basophils % % Neutrophils # (1.3-7.7) k/uL Lymphocytes # (1.0-4.8) k/uL Monocytes # (0-1.0) k/uL Eosinophils # (0-0.7) k/uL Basophils # (0-0.2) k/uL PT 10.5 (9.0-12.0) sec INR 1.0 (<1.2) APTT 24.2 (22.0-30.0) sec Sodium (137-145) mmol/L Potassium (3.5-5.1) mmol/L Chloride (98-107) mmol/L Carbon Dioxide (22-30) mmol/L Anion Gap mmol/L BUN (9-20) mg/dL Creatinine (0.66-1.25) mg/dL Est GFR (CKD-EPI)AfAm (>60 ml/min/1.73 sqM) Est GFR (CKD-EPI)NonAf (>60 ml/min/1.73 sqM) Glucose (74-99) mg/dL Calcium (8.4-10.2) mg/dL Total Bilirubin (0.2-1.3) mg/dL AST (17-59) U/L ALT (21-72) U/L Alkaline Phosphatase (38-126) U/L Troponin I <0.012 (0.000-0.034) ng/mL NT-Pro-B Natriuret Pep pg/mL Total Protein (6.3-8.2) g/dL Albumin (3.5-5.0) g/dL Urine Color Yellow Urine Appearance Clear (Clear) Urine pH 6.0 (5.0-8.0) Ur Specific Frederic 1.018 (1.001-1.035) Urine Protein Trace H (Negative) Urine Glucose (UA) Trace H (Negative) Urine Ketones Negative (Negative) Urine Blood Negative (Negative) Urine Nitrite Negative (Negative) Urine Bilirubin Negative (Negative) Urine Urobilinogen 2.0 (<2.0) mg/dL Ur Leukocyte Esterase Small H (Negative) Urine WBC 15 H (0-5) /hpf Urine Mucus Rare H (None) /hpf Influenza Type A RNA (Not Detectd) Influenza Type B (PCR) (Not Detectd) 05/10/19 Range/Units 12:00 WBC (3.8-10.6) k/uL RBC (4.30-5.90) m/uL Hgb (13.0-17.5) gm/dL Hct (39.0-53.0) % MCV (80.0-100.0) fL MCH (25.0-35.0) pg MCHC (31.0-37.0) g/dL RDW (11.5-15.5) % Plt Count (150-450) k/uL Neutrophils % % Lymphocytes % % Monocytes % % Eosinophils % % Basophils % % Neutrophils # (1.3-7.7) k/uL Lymphocytes # (1.0-4.8) k/uL Monocytes # (0-1.0) k/uL Eosinophils # (0-0.7) k/uL Basophils # (0-0.2) k/uL PT (9.0-12.0) sec INR (<1.2) APTT (22.0-30.0) sec Sodium (137-145) mmol/L Potassium (3.5-5.1) mmol/L Chloride (98-107) mmol/L Carbon Dioxide (22-30) mmol/L Anion Gap mmol/L BUN (9-20) mg/dL Creatinine (0.66-1.25) mg/dL Est GFR (CKD-EPI)AfAm (>60 ml/min/1.73 sqM) Est GFR (CKD-EPI)NonAf (>60 ml/min/1.73 sqM) Glucose (74-99) mg/dL Calcium (8.4-10.2) mg/dL Total Bilirubin (0.2-1.3) mg/dL AST (17-59) U/L ALT (21-72) U/L Alkaline Phosphatase (38-126) U/L Troponin I (0.000-0.034) ng/mL NT-Pro-B Natriuret Pep pg/mL Total Protein (6.3-8.2) g/dL Albumin (3.5-5.0) g/dL Urine Color Urine Appearance (Clear) Urine pH (5.0-8.0) Ur Specific Frederic (1.001-1.035) Urine Protein (Negative) Urine Glucose (UA) (Negative) Urine Ketones (Negative) Urine Blood (Negative) Urine Nitrite (Negative) Urine Bilirubin (Negative) Urine Urobilinogen (<2.0) mg/dL Ur Leukocyte Esterase (Negative) Urine WBC (0-5) /hpf Urine Mucus (None) /hpf Influenza Type A RNA Not Detected (Not Detectd) Influenza Type B (PCR) Not Detected (Not Detectd) Disposition <Pratik Perez - Last Filed: 09/27/18 11:58> Is patient prescribed a controlled substance at d/c from ED?: No Time of Disposition: 12:13 Decision to Admit Reason: Admit from EC Decision Date: 09/27/18 Decision Time: 12:13 <Sailaja Byrne - Last Filed: 09/27/18 19:35> Clinical Impression: COPD exacerbation, Pneumonia, Hypoxia, Lung nodule seen on imaging study Disposition: ADMITTED IP TO THIS HOSP Condition: Stable
[2018-09-27 10:23] LABS: Basophils % (A) 0 %; Eosinophils # (A) 0.3 k/uL (0-0.7); Eosinophils % (A) 4 %; HCT 48.9 % (39.0-53.0); HGB 16.9 gm/dL (13.0-17.5); Lymphocytes # (A) 0.9 k/uL (1.0-4.8); Lymphocytes % (A) 12 %; MCH 32.7 pg (25.0-35.0); MCHC 34.5 g/dL (31.0-37.0); MCV 94.8 fL (80.0-100.0); Mean Platelet Volume 6.7; Monocytes # (A) 0.5 k/uL (0-1.0); Monocytes % (A) 7 %; Neutrophils # (A) 5.6 k/uL (1.3-7.7); Neutrophils % (A) 74 %; Platelet Count 179 k/uL (150-450); RBC 5.16 m/uL (4.30-5.90); RDW 13.2 % (11.5-15.5); WBC 7.5 k/uL (3.8-10.6)
[2018-09-27 10:30] LABS: Albumin 4.4 g/dL (3.5-5.0); Calcium 9.5 mg/dL (8.4-10.2); Partial Thromboplastin Time 24.2 sec (22.0-30.0); Potassium 4.2 mmol/L (3.5-5.1); Prothrombin Time 10.5 sec (9.0-12.0); Total Bilirubin 1.4 mg/dL (0.2-1.3); Total Protein 7.2 g/dL (6.3-8.2)
[2018-09-27 10:56] LABS: Appearance,Urine Clear (Clear); Bilirubin,Urine Negative (Negative); Blood,Urine Negative (Negative); Color,Urine Yellow; Glucose,Urine (UA) Trace (Negative); Ketones,Urine Negative (Negative); Leukocyte Esterase,Urine Small (Negative); Mucus,Urine Rare /hpf; Nitrite,Urine Negative (Negative); Protein,Urine Trace (Negative); Specific Gravity,Urine 1.018 (1.001-1.035); WBC,Urine 15 /hpf (0-5)
--- NOTE | 2018-09-27 10:59 | XR ---
EXAMINATION TYPE: XR chest 2V DATE OF EXAM: 09/27/2018 COMPARISON: 05/30/2018 TECHNIQUE: PA and lateral views submitted. HISTORY: Cough FINDINGS: Hyperinflation suggestive COPD. Heart size stable. No pleural effusion or overt failure. No pneumotho rax. There is a somewhat nodular appearing density at the right lung base. This appears increased in size from the 05/11/2016 exam. IMPRESSION: 1. Subsegmental right lower lobe infiltrate which has a somewhat nodular pattern. Recommend CT chest. 2. COPD.
[2018-09-27] MEDS ORDERED: IPRATROPIUM-ALBUTEROL 3 ML NEB INHALATION PRN ×2 (12:10→16:09)
--- NOTE | 2018-09-27 16:27 | P.HPIM ---
History of Present Illness 73-year-old pleasant gentleman came in with complains of shortness of breath with the brown to greenish sputum production has been going on for about a week patient quit smoking one and half years ago doesn't use any oxygen chest x-ray showed some right lower lobe infiltrate appears to be most reflexes of the pneumonia. Patient has significant improvement since he received systemic steroids. Although patient chart of breath without oxygen here on the floor. Patient was comparing of chills and rigors although there is no documented fever here in the hospital. Patient does have coronary artery disease with the stents in the past. Review of Systems REVIEW OF SYSTEMS: CONSTITUTIONAL: No fever, no malaise, no fatigue. HEENT: No recent visual problems or hearing problems. Denied any sore throat. CARDIOVASCULAR: No chest pain, orthopnea, PND, no palpitations, no syncope. PULMONARY: no hemoptysis. GASTROINTESTINAL: No diarrhea, no nausea, no vomiting, no abdominal pain. NEUROLOGICAL: No headaches, no weakness, no numbness. HEMATOLOGICAL: Denies any bleeding or petechiae. GENITOURINARY: Denies any burning micturition, frequency, or urgency. MUSCULOSKELETAL/RHEUMATOLOGICAL: Denies any joint pain, swelling, or any muscle pain. ENDOCRINE: Denies any polyuria or polydipsia. The rest of the 14-point review of systems is negative. Past Medical History Past Medical History: Atrial Fibrillation, Coronary Artery Disease (CAD), Chest Pain / Angina, COPD, GERD/Reflux, GI Bleed, Myocardial Infarction (MD), Pneumonia, Prostate Disorder, Skin Disorder Additional Past Medical History / Comment(s): Lower GI bleed, hemorrhoids, diverticular disease, benign colon polyps, BPH, lower leg/pedal edema, gout bilateral feet. Last Myocardial Infarction Date:: 2005 History of Any Multi-Drug Resistant Organisms: None Reported Past Surgical History: Heart Catheterization With Stent Additional Past Surgical History / Comment(s): total 3 cardiac stents, surgery for cyst in rectal area and testicular, siddharth cataracts removed with lens implants, prostate biopsies, colonoscopy/benign polypectomy. Past Anesthesia/Blood Transfusion Reactions: No Reported Reaction Date of Last Stent Placement:: 2005 Smoking Status: Never smoker - Past Family History Father Family Medical History: Cancer Additional Family Medical History / Comment(s): Father had lung cancer. He was a smoker. Mother Family Medical History: No Reported History Additional Family Medical History / Comment(s): Mother was healthy and lived to be in her 90s. Medications and Allergies Home Medications Medication Instructions Recorded Confirmed Type Allopurinol [Zyloprim] 100 mg PO DAILY 03/02/16 09/27/18 History Aspirin [Adult Low Dose Aspirin EC] 81 mg PO DAILY 03/02/16 09/27/18 History Furosemide [Lasix] 20 mg PO DAILY 03/02/16 09/27/18 History Lisinopril [Zestril] 10 mg PO DAILY 03/02/16 09/27/18 History Mometasone/Formoterol [Dulera 100 2 puff INHALATION RT-BID 03/02/16 09/27/18 History Mcg/5 Mcg Inhaler] Metoprolol Succinate [Toprol Xl] 50 mg PO DAILY 12/29/17 09/27/18 History Multivitamins, Thera [Multivitamin 1 tab PO DAILY 12/29/17 09/27/18 History (formulary)] Tamsulosin HCl [Flomax] 0.4 mg PO HS 12/29/17 09/27/18 History Pravastatin Sodium [Pravachol] 20 mg PO DAILY 02/14/18 09/27/18 History Ranitidine HCl 150 mg PO HS PRN 02/14/18 09/27/18 History Sennosides-Docusate Sodium 1 tab PO BID #60 tablet 02/15/18 09/27/18 Rx [Senokot-S] Albuterol Nebulized [Ventolin 2.5 mg INHALATION RT-Q6H PRN 09/27/18 09/27/18 History Nebulized] Ezetimibe [Zetia] 10 mg PO DAILY 09/27/18 09/27/18 History Pantoprazole [Protonix] 40 mg PO DAILY 09/27/18 09/27/18 History Allergies Allergy/AdvReac Type Severity Reaction Status Date / Time No Known Allergies Allergy Verified 09/27/18 10:39 Physical Exam Vitals: Vital Signs Temp Pulse Pulse Resp BP BP Pulse Ox 09/27/18 16:16 84 09/27/18 16:06 80 09/27/18 15:00 98.8 F 91 16 116/68 92 L 09/27/18 12:30 84 15 119/74 90 L 09/27/18 12:17 83 09/27/18 12:06 79 09/27/18 12:00 89 17 121/75 91 L 09/27/18 11:32 87 09/27/18 11:30 86 23 101/67 99 09/27/18 11:21 80 09/27/18 11:00 85 18 92 L 09/27/18 10:30 94 16 92 L 09/27/18 10:13 91 09/27/18 10:01 84 09/27/18 09:38 98.6 F 101 H 22 125/81 95 Intake and Output 09/27/18 09/27/18 09/27/18 06:59 14:59 22:59 Other: Weight 117.934 kg PHYSICAL EXAMINATION: GENERAL: The patient is alert and oriented x3, not in any acute distress. Well developed, well nourished. HEENT: Pupils are round and equally reacting to light. EOMI. No scleral icterus. No conjunctival pallor. Normocephalic, atraumatic. No pharyngeal erythema. No thyromegaly. CARDIOVASCULAR: S1 and S2 present. No murmurs, rubs, or gallops. PULMONARY: Decreased air entry with minimal expiratory wheezing on exam ABDOMEN: Soft, nontender, nondistended, normoactive bowel sounds. No palpable organomegaly. MUSCULOSKELETAL: No joint swelling or deformity. EXTREMITIES: No cyanosis, clubbing, or pedal edema. NEUROLOGICAL: Gross neurological examination did not reveal any focal deficits. SKIN: No rashes. Results CBC & Chem 7: 09/27/18 10:06 09/27/18 10:06 Labs: Abnormal Lab Results - Last 24 Hours (Table) 09/27/18 09/27/18 09/27/18 Range/Units 10:06 10:06 10:30 Lymphocytes # 0.9 L (1.0-4.8) k/uL Creatinine 1.42 H (0.66-1.25) mg/dL Glucose 182 H (74-99) mg/dL Total Bilirubin 1.4 H (0.2-1.3) mg/dL AST 68 H (17-59) U/L ALT 78 H (21-72) U/L Urine Protein Trace H (Negative) Urine Glucose (UA) Trace H (Negative) Ur Leukocyte Esterase Small H (Negative) Urine WBC 15 H (0-5) /hpf Urine Mucus Rare H (None) /hpf Thrombosis Risk Factor Assmnt - Choose All That Apply Any of the Below Risk Factors Present?: Yes Each Factor Represents 1 point: Obesity (BMI >25), Serious lung disease incl. pneumonia (< 1month) Other Risk Factors: Yes Each Risk Factor Represents 2 Points: Age 61-74 years Other congenital or acquired thrombophilia - If yes, enter type in comment: No Thrombosis Risk Factor Assessment Total Risk Factor Score: 4 Thrombosis Risk Factor Assessment Level: Moderate Risk Assessment and Plan Plan: -acute COPD exacerbation: Patient was started on steroids inhalational treatments my suspicion is low for pneumonia although cannot completely excluded patient will be treated for tracheal bronchitis and possible pneumonia, required with the levofloxacin. -Gastroesophageal reflux disease next and have an coronary artery disease patient will be resumed and continued on antiplatelet therapy beta mac. -Acute renal failure baseline creatinine around 1.1 patient may have chronic kidney disease stage II from hypertensive nephrosclerosis acute renal failure secondary to renal azotemia hold of diuretic therapy and lisinopril temporarily recheck basic metabolic profile tomorrow H- mildly elevated liver enzymes nonspecific elevation and recheck them tomorrow -Benign prostatic have atrophic -Elevated blood sugars will obtain hemoglobin A1c was started on sliding scale insulin elevation of blood sugars is probably secondary to systemic steroids. -Due to prophylaxis with subcutaneous heparin
[2018-09-27] MEDS: SODIUM CHLORIDE 0.9% 1,000 ML IV SCH (16:49)
[2018-09-27] MEDS: LEVOFLOXACIN 500 MG TAB PO SCH (16:49)
[2018-09-27] MEDS: INSULIN ASPART (NovoLOG) 100 UNIT/ML VIAL SQ SCH ×2 (16:50→22:16)
[2018-09-27 16:59] LABS: Glucose,Whole Blood 334 mg/dL (75-99)
[2018-09-27] MEDS: IPRATROPIUM-ALBUTEROL 3 ML NEB INHALATION SCH (20:10)
[2018-09-27] MEDS: SYMBICORT 80-4.5 MCG INHALER INHALATION SCH (20:43)
[2018-09-27 20:57] LABS: Glucose,Whole Blood 318 mg/dL (75-99)
[2018-09-27] MEDS: methylPREDNISolone SOD SUCCI 40 MG/ML 1 ML VIAL IV SCH (22:15)
[2018-09-27] MEDS: SENNOSIDES-DOCUSATE SODIUM 1 EACH TAB PO SCH (22:16)
[2018-09-27] MEDS: TAMSULOSIN 0.4 MG CAP.ER.24H PO SCH (22:16)
[2018-09-28] MEDS: HEPARIN SODIUM,PORCINE 5,000 UNIT/ML 1 ML VIAL SQ SCH ×4 (00:30→23:57)
[2018-09-28 01:44] LABS: Hemoglobin A1C 7.1 % (4.0-6.0)
[2018-09-28 06:57] LABS: Glucose,Whole Blood 227 mg/dL (75-99)
[2018-09-28 07:40] LABS: Albumin 3.8 g/dL (3.5-5.0); Calcium 9.4 mg/dL (8.4-10.2); Potassium 4.8 mmol/L (3.5-5.1); Total Bilirubin 0.6 mg/dL (0.2-1.3); Total Protein 6.4 g/dL (6.3-8.2)
[2018-09-28] MEDS: PANTOPRAZOLE 40 MG TABLET PO SCH (08:03)
[2018-09-28] MEDS: INSULIN ASPART (NovoLOG) 100 UNIT/ML VIAL SQ SCH ×4 (08:03→22:31)
[2018-09-28] MEDS: METOPROLOL SUCCINATE (ER) 50 MG TAB.ER.24H PO SCH (08:03)
[2018-09-28] MEDS: ASPIRIN 81 MG PO SCH (08:03)
[2018-09-28] MEDS: ALLOPURINOL 100 MG TAB PO SCH (08:03)
[2018-09-28] MEDS: EZETIMIBE 10 MG TAB PO SCH ×2 (08:03→09:38)
[2018-09-28] MEDS: SENNOSIDES-DOCUSATE SODIUM 1 EACH TAB PO SCH ×2 (08:03→22:32)
[2018-09-28] MEDS: PRAVASTATIN SODIUM 20 MG TAB PO SCH (08:03)
[2018-09-28] MEDS: methylPREDNISolone SOD SUCCI 40 MG/ML 1 ML VIAL IV SCH ×2 (08:03→22:32)
[2018-09-28 08:27] LABS: HCT 46.4 % (39.0-53.0); MCH 31.4 pg (25.0-35.0); MCHC 32.4 g/dL (31.0-37.0); MCV 96.9 fL (80.0-100.0); Mean Platelet Volume 6.9; Platelet Count 176 k/uL (150-450); RBC 4.79 m/uL (4.30-5.90); WBC 9.5 k/uL (3.8-10.6)
[2018-09-28] MEDS: IPRATROPIUM-ALBUTEROL 3 ML NEB INHALATION SCH ×4 (08:59→19:58)
[2018-09-28] MEDS: SYMBICORT 80-4.5 MCG INHALER INHALATION SCH ×2 (09:00→19:58)
[2018-09-28 11:28] LABS: Glucose,Whole Blood 261 mg/dL (75-99)
[2018-09-28] MEDS ORDERED: POLYETHYLENE GLYCOL 3350 17 GM POWD.PACK PO PRN (11:49)
--- NOTE | 2018-09-28 13:02 | P.PN ---
Subjective 73-year-old male was admitted secondary to COPD exacerbation, there is some improvement in his respiratory status still requiring oxygen doesn't use any oxygen at home. Patient may have sleep apnea as well patient will benefit from sleep study as an outpatient. Continue with the systemic steroids inhalational treatment possible day of discharge depending on his clinical improvement either tomorrow or day after. Patient is feeling bit better compared to yesterday. Constitutional: Denied any fatigue denied any fever. Cardio vascular: denied any chest pain, palpitations Gastrointestinal denied any nausea vomiting Pulmonary: As mentioned in HPI Neurologic denied any new focal deficits All inpatient medications were reviewed and appropriate changes in these medications as dictated in the interval history and assessment and plan. Objective - Vital Signs Vital signs: Vital Signs Temp 97.9 F 09/28/18 07:35 Pulse 76 09/28/18 11:31 Resp 18 09/28/18 08:00 BP 135/76 09/28/18 07:35 Pulse Ox 93 L 09/28/18 07:35 Intake & Output 09/27/18 09/28/18 09/28/18 18:59 06:59 18:59 Intake Total 1350 Balance 1350 Weight 117.934 kg Intake: Intake, IV Titration 800 Amount Sodium Chloride 0.9% 1, 800 000 ml @ 100 mls/hr IV . Q10H [facility] Rx#:[id number] Oral 550 Other: Voiding Method Toilet Toilet Urinal Urinal # Voids 3 - Exam PHYSICAL EXAMINATION: GENERAL: The patient is alert and oriented x3, not in any acute distress. Well developed, well nourished. HEENT: Pupils are round and equally reacting to light. EOMI. No scleral icterus. No conjunctival pallor. Normocephalic, atraumatic. No pharyngeal erythema. No thyromegaly. CARDIOVASCULAR: S1 and S2 present. No murmurs, rubs, or gallops. PULMONARY: Minimal expiratory wheeze fairly good air entry into bilateral lung andino ABDOMEN: Soft, nontender, nondistended, normoactive bowel sounds. No palpable organomegaly. MUSCULOSKELETAL: No joint swelling or deformity. EXTREMITIES: No cyanosis, clubbing, or pedal edema. NEUROLOGICAL: Gross neurological examination did not reveal any focal deficits. SKIN: No rashes. - Labs CBC & Chem 7: 09/28/18 06:25 09/28/18 06:25 Labs: Abnormal Lab Results - Last 24 Hours (Table) 09/27/18 09/27/18 09/27/18 Range/Units 10:06 16:44 20:56 Glucose (74-99) mg/dL POC Glucose (mg/dL) 334 H 318 H (75-99) mg/dL Hemoglobin A1c 7.1 H (4.0-6.0) % ALT (21-72) U/L 09/28/18 09/28/18 09/28/18 Range/Units 06:25 06:56 11:27 Glucose 204 H (74-99) mg/dL POC Glucose (mg/dL) 227 H 261 H (75-99) mg/dL Hemoglobin A1c (4.0-6.0) % ALT 81 H (21-72) U/L Microbiology - Last 24 Hours (Table) 09/27/18 10:06 Blood Culture - Preliminary Blood No Growth after 24 hours Assessment and Plan Plan: -acute COPD exacerbation: Patient was started on steroids inhalational treatments my suspicion is low for pneumonia although cannot completely excluded patient will be treated for tracheal bronchitis and possible pneumonia, required with the levofloxacin. -Gastroesophageal reflux disease next and have an coronary artery disease patient will be resumed and continued on antiplatelet therapy beta mac. -Acute renal failure baseline creatinine around 1.1 patient may have chronic kidney disease stage II from hypertensive nephrosclerosis acute renal failure secondary to renal azotemia hold of diuretic therapy and lisinopril temporarily recheck basic metabolic profile tomorrow H- mildly elevated liver enzymes nonspecific elevation and recheck them tomorrow -Benign prostatic have atrophic -Elevated blood sugars will obtain hemoglobin A1c was started on sliding scale insulin elevation of blood sugars is probably secondary to systemic steroids. -Due to prophylaxis with subcutaneous heparin
[2018-09-28 16:52] LABS: Glucose,Whole Blood 285 mg/dL (75-99)
[2018-09-28] MEDS: LEVOFLOXACIN 500 MG TAB PO SCH (17:04)
[2018-09-28 20:24] LABS: Glucose,Whole Blood 209 mg/dL (75-99)
[2018-09-28] MEDS: TAMSULOSIN 0.4 MG CAP.ER.24H PO SCH (22:32)
[2018-09-28] MEDS: SODIUM CHLORIDE 0.9% 1,000 ML IV SCH ×2 (22:33→23:56)
[2018-09-29 06:50] LABS: Glucose,Whole Blood 228 mg/dL (75-99)
[2018-09-29] MEDS: ASPIRIN 81 MG PO SCH (07:41)
[2018-09-29] MEDS: PRAVASTATIN SODIUM 20 MG TAB PO SCH (07:41)
[2018-09-29] MEDS: ALLOPURINOL 100 MG TAB PO SCH (07:41)
[2018-09-29] MEDS: SENNOSIDES-DOCUSATE SODIUM 1 EACH TAB PO SCH ×2 (07:41→22:00)
[2018-09-29] MEDS: METOPROLOL SUCCINATE (ER) 50 MG TAB.ER.24H PO SCH (07:41)
[2018-09-29] MEDS: INSULIN ASPART (NovoLOG) 100 UNIT/ML VIAL SQ SCH ×4 (07:43→22:00)
[2018-09-29] MEDS: PANTOPRAZOLE 40 MG TABLET PO SCH (07:43)
[2018-09-29] MEDS: EZETIMIBE 10 MG TAB PO SCH (07:43)
[2018-09-29] MEDS: HEPARIN SODIUM,PORCINE 5,000 UNIT/ML 1 ML VIAL SQ SCH ×2 (07:43→17:11)
[2018-09-29] MEDS: methylPREDNISolone SOD SUCCI 40 MG/ML 1 ML VIAL IV SCH (07:43)
[2018-09-29] MEDS: SODIUM CHLORIDE 0.9% 1,000 ML IV SCH (07:44)
[2018-09-29] MEDS: SYMBICORT 80-4.5 MCG INHALER INHALATION SCH ×2 (08:51→20:30)
[2018-09-29] MEDS: IPRATROPIUM-ALBUTEROL 3 ML NEB INHALATION SCH ×4 (08:51→20:29)
[2018-09-29 11:21] LABS: Glucose,Whole Blood 246 mg/dL (75-99)
--- NOTE | 2018-09-29 12:22 | P.PN ---
Subjective 73-year-old male was admitted secondary to COPD exacerbation, there is some improvement in his respiratory status still requiring oxygen doesn't use any oxygen at home. Patient may have sleep apnea as well patient will benefit from sleep study as an outpatient. Continue with the systemic steroids inhalational treatment possible day of discharge depending on his clinical improvement either tomorrow or day after. Patient is feeling bit better compared to yesterday. 09/29/2018 Patient is clinically doing well is bit constipated as pretty status improved significantly patient is now any real diagnosed diabetic with hemoglobin answer some 0.1 diabetic counseling was provided and patient will be discharged on metformin. Constitutional: Denied any fatigue denied any fever. Cardio vascular: denied any chest pain, palpitations Gastrointestinal denied any nausea vomiting Pulmonary: As mentioned in HPI Neurologic denied any new focal deficits All inpatient medications were reviewed and appropriate changes in these medications as dictated in the interval history and assessment and plan. Objective - Vital Signs Vital signs: Vital Signs Temp 97.7 F 09/29/18 07:44 Pulse 83 09/29/18 11:50 Resp 17 09/29/18 08:00 BP 152/87 09/29/18 07:44 Pulse Ox 95 09/29/18 07:44 Intake & Output 09/28/18 09/29/18 09/29/18 18:59 06:59 18:59 Intake Total 700 Output Total 400 Balance 700 -400 Intake: Intake, IV Titration 700 Amount Sodium Chloride 0.9% 1, 700 000 ml @ 100 mls/hr IV . Q10H [facility] Rx#:[id number] Output: Urine 400 Other: Voiding Method Toilet Toilet Urinal Urinal - Exam PHYSICAL EXAMINATION: GENERAL: The patient is alert and oriented x3, not in any acute distress. Well developed, well nourished. HEENT: Pupils are round and equally reacting to light. EOMI. No scleral icterus. No conjunctival pallor. Normocephalic, atraumatic. No pharyngeal erythema. No thyromegaly. CARDIOVASCULAR: S1 and S2 present. No murmurs, rubs, or gallops. PULMONARY: Wheezing resolved in good air entry into bilateral lung andino ABDOMEN: Soft, nontender, nondistended, normoactive bowel sounds. No palpable organomegaly. MUSCULOSKELETAL: No joint swelling or deformity. EXTREMITIES: No cyanosis, clubbing, or pedal edema. NEUROLOGICAL: Gross neurological examination did not reveal any focal deficits. SKIN: No rashes. - Labs CBC & Chem 7: 09/28/18 06:25 09/28/18 06:25 Labs: Abnormal Lab Results - Last 24 Hours (Table) 09/28/18 09/28/18 09/29/18 Range/Units 16:50 20:21 06:48 POC Glucose (mg/dL) 285 H 209 H 228 H (75-99) mg/dL 09/29/18 Range/Units 11:19 POC Glucose (mg/dL) 246 H (75-99) mg/dL Microbiology - Last 24 Hours (Table) 09/27/18 10:06 Blood Culture - Preliminary Blood No Growth after 48 hours Assessment and Plan Plan: -acute COPD exacerbation: Patient was started on steroids inhalational treatments my suspicion is low for pneumonia although cannot completely excluded patient will be treated for tracheal bronchitis and possible pneumonia, required with the levofloxacin. -Gastroesophageal reflux disease next and have an coronary artery disease patient will be resumed and continued on antiplatelet therapy beta mac. -Acute renal failure baseline creatinine around 1.1 patient may have chronic kidney disease stage II from hypertensive nephrosclerosis acute renal failure secondary to renal azotemia hold of diuretic therapy and lisinopril temporarily improved serum creatinine -New-onset diabetes mellitus type 2 dietary counseling weight loss counseling was provided patient will be discharged on metformin H- mildly elevated liver enzymes nonspecific elevation, improved now -Benign prostatic have atrophic -Due to prophylaxis with subcutaneous heparin
[2018-09-29 16:45] LABS: Glucose,Whole Blood 266 mg/dL (75-99)
[2018-09-29] MEDS: LEVOFLOXACIN 500 MG TAB PO SCH (17:11)
[2018-09-29 21:12] LABS: Glucose,Whole Blood 243 mg/dL (75-99)
[2018-09-29] MEDS: TAMSULOSIN 0.4 MG CAP.ER.24H PO SCH (22:00)
[2018-09-30] MEDS: HEPARIN SODIUM,PORCINE 5,000 UNIT/ML 1 ML VIAL SQ SCH ×3 (00:04→15:18)
[2018-09-30 01:32] VITALS: RESP 16
[2018-09-30 06:57] LABS: Glucose,Whole Blood 115 mg/dL (75-99)
[2018-09-30 07:47] VITALS: BP 134/85; TEMP 98.2
[2018-09-30] MEDS: INSULIN ASPART (NovoLOG) 100 UNIT/ML VIAL SQ SCH ×2 (08:26→12:06)
[2018-09-30] MEDS: ALLOPURINOL 100 MG TAB PO SCH (08:46)
[2018-09-30] MEDS: METOPROLOL SUCCINATE (ER) 50 MG TAB.ER.24H PO SCH (08:46)
[2018-09-30] MEDS: PANTOPRAZOLE 40 MG TABLET PO SCH (08:46)
[2018-09-30] MEDS: ASPIRIN 81 MG PO SCH (08:46)
[2018-09-30] MEDS: PRAVASTATIN SODIUM 20 MG TAB PO SCH (08:47)
[2018-09-30] MEDS: SENNOSIDES-DOCUSATE SODIUM 1 EACH TAB PO SCH (08:47)
[2018-09-30] MEDS ORDERED: predniSONE 20 MG TAB PO SCH (09:00)
[2018-09-30] MEDS: IPRATROPIUM-ALBUTEROL 3 ML NEB INHALATION SCH ×3 (09:24→15:15)
[2018-09-30] MEDS: SYMBICORT 80-4.5 MCG INHALER INHALATION SCH (09:24)
[2018-09-30 09:28] VITALS: PULSE 80
[2018-09-30 11:24] LABS: Glucose,Whole Blood 177 mg/dL (75-99)
--- NOTE | 2018-09-30 12:26 | P.DS ---
Providers Date of admission: 09/27/18 12:33 Attending physician: Karolina Orona Primary care physician: [facility] Hospital Course: 73-year-old male was admitted secondary to COPD exacerbation, there is some improvement in his respiratory status still requiring oxygen doesn't use any oxygen at home. Patient may have sleep apnea as well patient will benefit from sleep study as an outpatient. Continue with the systemic steroids inhalational treatment possible day of discharge depending on his clinical improvement either tomorrow or day after. Patient is feeling bit better compared to yesterday. 09/29/2018 Patient is clinically doing well is bit constipated as pretty status improved significantly patient is now any real diagnosed diabetic with hemoglobin answer some 0.1 diabetic counseling was provided and patient will be discharged on metformin. 09/30/2018 Patient is not requiring oxygen patient gets bit short of breath upon ablation but wanted to go home patient will be discharged today to follow with primary care physician. Patient is newly diagnosed diabetic scripts for Metformin was provided along with the testing strips and glucometer patient will need dietary counseling for diabetes and weight loss. PHYSICAL EXAMINATION: GENERAL: The patient is alert and oriented x3, not in any acute distress. Well developed, well nourished. HEENT: Pupils are round and equally reacting to light. EOMI. No scleral icterus. No conjunctival pallor. Normocephalic, atraumatic. No pharyngeal erythema. No thyromegaly. CARDIOVASCULAR: S1 and S2 present. No murmurs, rubs, or gallops. PULMONARY: minimal expiratory wheezing on exam ABDOMEN: Soft, nontender, nondistended, normoactive bowel sounds. No palpable organomegaly. MUSCULOSKELETAL: No joint swelling or deformity. EXTREMITIES: No cyanosis, clubbing, or pedal edema. NEUROLOGICAL: Gross neurological examination did not reveal any focal deficits. SKIN: No rashes. Assessment and Plan Plan: -acute COPD exacerbation: -possibility of pneumonia cannot be ruled out community-acquired -Gastroesophageal reflux disease coronary artery disease chronic kidney disease stage II -New-onset diabetes mellitus type 2 hemoglobin A1c of 7.1 - mildly elevated liver enzymes nonspecific elevation, improved now -Benign prostatic have atrophic Patient Condition at Discharge: Stable Plan - Discharge Summary Discharge Rx Participant: No New Discharge Prescriptions: New metFORMIN HCL [Glucophage] 500 mg PO BID #60 tab Levofloxacin [Levaquin] 500 mg PO Q24H #3 tab predniSONE 10 mg PO DAILY #30 tab Continue Mometasone/Formoterol [Dulera 100 Mcg/5 Mcg Inhaler] 2 puff INHALATION RT-BID Aspirin [Adult Low Dose Aspirin EC] 81 mg PO DAILY Allopurinol [Zyloprim] 100 mg PO DAILY Tamsulosin HCl [Flomax] 0.4 mg PO HS Multivitamins, Thera [Multivitamin (formulary)] 1 tab PO DAILY Metoprolol Succinate [Toprol Xl] 50 mg PO DAILY Pravastatin Sodium [Pravachol] 20 mg PO DAILY Ranitidine HCl 150 mg PO HS PRN PRN Reason: GERD Sennosides-Docusate Sodium [Senokot-S] 1 tab PO BID #60 tablet Pantoprazole [Protonix] 40 mg PO DAILY Ezetimibe [Zetia] 10 mg PO DAILY Albuterol Nebulized [Ventolin Nebulized] 2.5 mg INHALATION RT-Q6H PRN PRN Reason: Shortness Of Breath Changed Lisinopril [Zestril] 5 mg PO DAILY #0 Discontinued Furosemide [Lasix] 20 mg PO DAILY Discharge Medication List Allopurinol [Zyloprim] 100 mg PO DAILY 03/02/16 [History] Aspirin [Adult Low Dose Aspirin EC] 81 mg PO DAILY 03/02/16 [History] Mometasone/Formoterol [Dulera 100 Mcg/5 Mcg Inhaler] 2 puff INHALATION RT-BID 03/02/16 [History] Metoprolol Succinate [Toprol Xl] 50 mg PO DAILY 12/29/17 [History] Multivitamins, Thera [Multivitamin (formulary)] 1 tab PO DAILY 12/29/17 [History] Tamsulosin HCl [Flomax] 0.4 mg PO HS 12/29/17 [History] Pravastatin Sodium [Pravachol] 20 mg PO DAILY 02/14/18 [History] Ranitidine HCl 150 mg PO HS PRN 02/14/18 [History] Sennosides-Docusate Sodium [Senokot-S] 1 tab PO BID #60 tablet 02/15/18 [Rx] Albuterol Nebulized [Ventolin Nebulized] 2.5 mg INHALATION RT-Q6H PRN 09/27/18 [History] Ezetimibe [Zetia] 10 mg PO DAILY 09/27/18 [History] Pantoprazole [Protonix] 40 mg PO DAILY 09/27/18 [History] Levofloxacin [Levaquin] 500 mg PO Q24H #3 tab 09/30/18 [Rx] Lisinopril [Zestril] 5 mg PO DAILY #0 09/30/18 [Rx] metFORMIN HCL [Glucophage] 500 mg PO BID #60 tab 09/30/18 [Rx] predniSONE 10 mg PO DAILY #30 tab 09/30/18 [Rx] Follow up Appointment(s)/Referral(s): Deanna Kate MD [Primary Care Provider] - 3 Days Patient Instructions/Handouts: Low Fat Diet (DC), Diabetes and Nutrition (DC), How to Check your Blood Sugar (DC) Discharge Disposition: HOME SELF-CARE
== END 2018-09-30 16:06 | disposition home or self-care (01) ==
LOC: EC 09:30 → 4SSUR 12:33
PROVIDERS: ADMIT Hospitalist; ATTEND Hospitalist
DX: J44.1 Chronic obstructive pulmonary disease with (acute) exacerbation (principal); N17.9 Acute kidney failure, unspecified; E11.65 Type 2 diabetes mellitus with hyperglycemia; I12.9 Hypertensive chronic kidney disease with stage 1 through stage 4 chronic kidney disease, or unspecified chronic kidney disease; N18.2 Chronic kidney disease, stage 2 (mild); E11.22 Type 2 diabetes mellitus with diabetic chronic kidney disease; J06.9 Acute upper respiratory infection, unspecified; K21.9 Gastro-esophageal reflux disease without esophagitis; M10.9 Gout, unspecified; R91.8 Other nonspecific abnormal finding of lung field; I25.10 Atherosclerotic heart disease of native coronary artery without angina pectoris; I48.91 Unspecified atrial fibrillation; N40.0 Benign prostatic hyperplasia without lower urinary tract symptoms; R60.0 Localized edema; K64.9 Unspecified hemorrhoids; K57.90 Diverticulosis of intestine, part unspecified, without perforation or abscess without bleeding; E66.9 Obesity, unspecified; Z68.35 Body mass index [BMI] 35.0-35.9, adult; R74.0 Nonspecific elevation of levels of transaminase and lactic acid dehydrogenase [LDH]; R79.89 Other specified abnormal findings of blood chemistry; K59.00 Constipation, unspecified; N42.89 Other specified disorders of prostate; L98.9 Disorder of the skin and subcutaneous tissue, unspecified; Z79.82 Long term (current) use of aspirin; Z79.51 Long term (current) use of inhaled steroids; Z79.899 Other long term (current) drug therapy; I25.2 Old myocardial infarction; Z87.19 Personal history of other diseases of the digestive system; Z95.5 Presence of coronary angioplasty implant and graft; Z98.42 Cataract extraction status, left eye; Z98.41 Cataract extraction status, right eye; Z87.01 Personal history of pneumonia (recurrent); Z86.010 Personal history of colon polyps; Z96.1 Presence of intraocular lens; Z87.891 Personal history of nicotine dependence; Z80.1 Family history of malignant neoplasm of trachea, bronchus and lung; Z81.2 Family history of tobacco abuse and dependence
CPT/HCPCS: 96376 ×3; 96372 ×2; 96365; 96367; 96375; 99285; 36415; 94640 ×8; 93005; 83880; 80053 ×2; 84484; 85025; 85027; 85610; 85730; 81001; 87040; 87502; 83036; 71046; G0378 ×4; J1644 ×2; J2920 ×3; J2930; J0456; J0696; J7512

== ENCOUNTER → 2018-10-08 | Outpatient (CLI) | payer MEDICARE ==
--- NOTE | 2018-10-08 15:53 | CT ---
EXAMINATION TYPE: CT chest wo con DATE OF EXAM: 10/08/2018 COMPARISON: None HISTORY: COPD CT DLP: 633.3 mGycm. Automated Exposure Control for Dose Reduction was Utilized. TECHNIQUE: CT scan of the thorax is performed without IV contrast. FINDINGS: LUNGS: Diffuse emphysematous changes are noted. No pneumothorax. There is an apical pulmonary nodule somewhat irregular in appearance measuring 6 mm. There is a second satellite 5 mm nodule. Subsegmenta l consolidation is seen at the right lung bases most typical of scar or atelectasis. No pleural effus ion or pneumothorax. Right perihilar subsegmental consolidation extending anteriorly also noted and l ikely related to atelectasis. Incidental note made of blebs.. MEDIASTINUM: Lack of IV contrast is noted to limit evaluation for mediastinal and especially hilar ad enopathy. There are no definitive greater than 1 cm hilar or mediastinal lymph nodes. There is dense coronary artery calcification and pericardial thickening or trace of pericardial fluid.. OTHER: Low density lesion within the left kidney is indeterminate by noncontrast technique but measur es 5 Hounsfield units and likely related to cyst. Hypertrophic and degenerative change of the vertebr al column.. IMPRESSION: 1. Diffuse COPD with two nodular densities in the left upper lobe which measure less than a centimete r. Have a nonspecific appearance are too small to characterize one of which may be calcified and repr esent a granuloma. Recommend a 3 month follow-up CT scan to confirm stability of size. 2. A right lower lobe area of density on recent chest x-ray is most compatible with atelectasis. 3. Extensive coronary artery atherosclerotic changes.
== END | disposition home or self-care (01) ==
LOC: RADCTMAIN 15:05
PROVIDERS: ATTEND Family Medicine
DX: J44.9 Chronic obstructive pulmonary disease, unspecified (principal); J98.4 Other disorders of lung; I25.10 Atherosclerotic heart disease of native coronary artery without angina pectoris
CPT/HCPCS: 71250

== ENCOUNTER 2019-03-04 06:37 | Day surgery (SDC) | payer MEDICARE ==
[2019-03-03 11:57] VITALS: BMI 35.2
[~2019-03-04 06:37] MED LIST: LACTATED RINGERS 1,000 ML IV SCH
[2019-03-04] MEDS ORDERED: LACTATED RINGERS 1,000 ML IV ONE (07:07)
[2019-03-04 07:19] VITALS: TEMP 98.4
[2019-03-04 07:24] LABS: Glucose,Whole Blood 138 mg/dL (75-99)
[2019-03-04] MEDS ORDERED: PROPOFOL 10 MG/ML 20 ML VIAL IV ONE ×2 (07:29→07:45)
[2019-03-04] MEDS ORDERED: LIDOCAINE 1% INJ 10MG/ML (20 ML MDV) ONE ×2 (07:29→07:45)
--- NOTE | 2019-03-04 07:51 | P.GSHP ---
History of Present Illness H&P Date: 03/04/19 Chief Complaint: Rectal bleeding This a 73-year-old male with history of rectal bleeding. He presents today for colonoscopy. Past Medical History Past Medical History: Chest Pain / Angina, COPD, Diabetes Mellitus, GERD/Reflux, GI Bleed, Myocardial Infarction ([place]), Skin Disorder Additional Past Medical History / Comment(s): Hx of rectal bleeding,hx rectal fissure,gout,bronchitis,uses O2 @ 2L NC at night and prn during the day. Last Myocardial Infarction Date:: approx 2005 History of Any Multi-Drug Resistant Organisms: None Reported Past Surgical History: Heart Catheterization With Stent Additional Past Surgical History / Comment(s): total 3 cardiac stents, surgery for cyst in rectal area, siddharth cataracts uro lift, cysts removed from testicles Past Anesthesia/Blood Transfusion Reactions: No Reported Reaction Date of Last Stent Placement:: 2005 Past Psychological History: No Psychological Hx Reported Additional Psychological History / Comment(s): . Smoking Status: Former smoker Past Alcohol Use History: Occasional Additional Past Alcohol Use History / Comment(s): Pt started smoking in 1955 and quit in 2016. Past Drug Use History: None Reported - Past Family History Father Family Medical History: Cancer Mother Family Medical History: No Reported History Additional Family Medical History / Comment(s): Mother was healthy and lived to be in her 90s. Medications and Allergies Home Medications Medication Instructions Recorded Confirmed Type Allopurinol [Zyloprim] 100 mg PO DAILY 03/02/16 03/04/19 History Aspirin [Adult Low Dose Aspirin EC] 81 mg PO DAILY 03/02/16 03/03/19 History Mometasone/Formoterol [Dulera 100 2 puff INHALATION RT-BID 03/02/16 03/04/19 History Mcg/5 Mcg Inhaler] Metoprolol Succinate [Toprol Xl] 50 mg PO QAM 12/29/17 03/04/19 History Tamsulosin HCl [Flomax] 0.4 mg PO HS 12/29/17 03/04/19 History Ranitidine HCl 150 mg PO HS PRN 02/14/18 03/04/19 History Furosemide [Lasix] 20 mg PO DAILY 02/27/19 03/04/19 History Ipratropium-Albuterol Nebulize 3 ml INHALATION BID 02/27/19 03/04/19 History [Duoneb 0.5 mg-3 mg/3 ml Soln] Lisinopril [Zestril] 10 mg PO QAM 02/27/19 03/04/19 History Rosuvastatin [Crestor] 20 mg PO DAILY 02/27/19 03/04/19 History metFORMIN HCL ER [Glucophage Xr] 500 mg PO HS 02/27/19 03/04/19 History Magnesium (Unknown Dose) 1 dose PO DAILY 03/03/19 03/04/19 History Damar-3 Fatty Acids [Damar-3] 1,000 mg PO DAILY 03/03/19 03/04/19 History Pantoprazole [Protonix] 40 mg PO DAILY 03/03/19 03/04/19 History Allergies Allergy/AdvReac Type Severity Reaction Status Date / Time No Known Allergies Allergy Verified 03/04/19 07:19 Surgical - Exam Vital Signs Pulse Resp BP Pulse Ox 87 16 143/77 94 L 03/04/19 07:16 03/04/19 07:16 03/04/19 07:16 03/04/19 07:16 - General well developed, well nourished, no distress - Eyes PERRL - ENT normal pinna - Neck no masses - Respiratory normal expansion - Cardiovascular Rhythm: regular - Abdomen Abdomen: soft, non tender Results - Labs Abnormal Lab Results - Last 24 Hours (Table) 03/04/19 Range/Units 07:20 POC Glucose (mg/dL) 138 H (75-99) mg/dL Assessment and Plan Assessment: Rectal bleeding. We'll perform colonoscopy.
--- NOTE | 2019-03-04 08:13 | P.OP ---
Date of Procedure: 03/04/19 Preoperative Diagnosis: GI bleed Postoperative Diagnosis: Multiple colonic polyps. Internal hemorrhoids Procedure(s) Performed: Colonoscopy Anesthesia: MAC Surgeon: Ubaldo Alfredo Pathology: other (Rectal polyps, transverse polyp, right colon polyps) Condition: stable Disposition: PACU Description of Procedure: The patient's placed on the endoscopy table in the lateral position. He received IV sedation. Digital rectal exam was performed which revealed a few internal hemorrhoids. The flexible colonoscope was then placed patient anus passed rotator entire colon. The ileocecal valve was visualized. The cecum appeared normal. In the right colon there were 2 polyps seen. These were removed with the snare. Scope was then brought back and in the transverse colon another polyp seen this removed with snare. Scope summer back and descending colon appeared normal. The sigmoid colon spell. Scope was brought back the rectum and another polyp seen this removed the snare. A second polyp was seen and removed the forcep. Scope was withdrawn through the anus and there were some internal hemorrhoids noted. Scope withdrawn the patient. There was no evidence of any GI bleed. He was presumed patient's rectal bleeding is due to hemorrhoids.
[2019-03-04 08:39] VITALS: RESP 18
[2019-03-04 08:40] VITALS: BP 114/68; PULSE 88
== END 2019-03-04 09:25 | disposition home or self-care (01) ==
LOC: ORWHC2ENDO 06:37
PROVIDERS: ATTEND Surgery
DX: D12.3 Benign neoplasm of transverse colon (principal); D12.8 Benign neoplasm of rectum; D12.6 Benign neoplasm of colon, unspecified; K64.8 Other hemorrhoids; I25.10 Atherosclerotic heart disease of native coronary artery without angina pectoris; I25.2 Old myocardial infarction; J44.9 Chronic obstructive pulmonary disease, unspecified; E11.9 Type 2 diabetes mellitus without complications; M10.9 Gout, unspecified; K21.9 Gastro-esophageal reflux disease without esophagitis; Z87.891 Personal history of nicotine dependence; Z79.82 Long term (current) use of aspirin; Z79.84 Long term (current) use of oral hypoglycemic drugs; Z79.51 Long term (current) use of inhaled steroids; Z79.899 Other long term (current) drug therapy; Z95.5 Presence of coronary angioplasty implant and graft; Z98.41 Cataract extraction status, right eye; Z98.42 Cataract extraction status, left eye; Z80.9 Family history of malignant neoplasm, unspecified
CPT/HCPCS: 45385; 45380; 88305; J2001; J2704

== ENCOUNTER → 2019-12-18 | Outpatient (CLI) | payer MEDICARE ==
--- NOTE | 2019-12-18 11:18 | US ---
EXAMINATION TYPE: US venous doppler duplex LE DATE OF EXAM: 12/18/2019 11:11 AM COMPARISON: NONE CLINICAL HISTORY: M79.672 LT FOOT PAIN,M79.89 SWELLING OF LOWER LEG. swelling in bilateral legs, brain ent has not been able to elevating legs at night and noticed swelling increased, no h/o dvt SIDE PERFORMED: Bilat TECHNIQUE: The lower extremity deep venous system is examined utilizing real time linear array sonog jay with graded compression, doppler sonography and color-flow sonography. VESSELS IMAGED: External Iliac Vein (EIV) Common Femoral Vein Deep Femoral Vein Greater Saphenous Vein * Femoral Vein Popliteal Vein Small Saphenous Vein * Proximal Calf Veins (* superficial vessels) There is normal flow, compressibility, vascular waveforms. Right Leg: Negative for DVT Left Leg: Negative for DVT tech impression relayed to Dr Vivar per personal phone IMPRESSION: No evident deep venous thrombosis at or above the knees.
== END | disposition home or self-care (01) ==
LOC: RADUSWWP 10:42
PROVIDERS: ATTEND Family Medicine
DX: M79.672 Pain in left foot (principal); M79.89 Other specified soft tissue disorders
CPT/HCPCS: 93970

== ENCOUNTER → 2020-02-23 | Outpatient (CLI) | payer MEDICARE ==
--- NOTE | 2020-02-23 08:54 | CT ---
EXAMINATION TYPE: CT chest wo con DATE OF EXAM: 02/23/2020 COMPARISON: 10/08/2018 HISTORY: follow up COPD CT DLP: [address] of the chest was performed with lung and mediastinal window settings submitted. The la ck of contrast limits evaluation of the vascular, mediastinal and parenchymal structures including th e upper abdomen. LUNGS: Moderate upper lobe emphysematous changes noted. Parenchymal scarring right upper lobe as well as the right middle lobe. The lungs are clear and free of infiltrate. No atelectasis. Stable 4 mm le ft upper lobe pulmonary nodules. No pleural effusion. No CT evidence of interstitial lung disease. MEDIASTINUM/ZULEYMA: Thoracic aorta is of normal caliber with limited evaluation given lack of contrast . The heart is not enlarged. No evidence for mediastinal mass. No lymph nodes greater than 1cm. UPPER ABDOMEN: No significant abnormality is seen. OTHER: No significant other abnormality. IMPRESSION: 1. Moderate upper lobe emphysematous changes as noted. 2. Stable left upper lobe pulmonary nodules.
== END | disposition home or self-care (01) ==
LOC: RADCTMAIN 07:48
PROVIDERS: ATTEND Internal Medicine Pulmonary Disease
DX: J43.9 Emphysema, unspecified (principal); R91.8 Other nonspecific abnormal finding of lung field
CPT/HCPCS: 71250

== ENCOUNTER 2020-08-16 15:25 | Emergency (ER) | payer MEDICARE ==
[2020-08-16] MEDS ORDERED: ALBUTEROL HFA INHALER INHALATION STA (17:22)
--- NOTE | 2020-08-16 17:23 | ED ---
General Adult HPI - General Chief complaint: Shortness of Breath Stated complaint: sore throat, cough Time Seen by Provider: 08/16/20 17:20 Source: patient Mode of arrival: ambulatory Limitations: no limitations - History of Present Illness Initial comments: Dictation was produced using [employer] dictation software. please excuse any grammatical, word or spelling errors. This patient was cared for during a federal and state declared state of emerg ency secondary to Covid 19 Chief Complaint: 74-year-old male with past medical history of COPD presents with 2 weeks of shortness of breath. History of Present Illness: 74-year-old male who has past medical history of COPD. He also has other comorbidities including myocardial infarction diabetes and GI bleed. Patient has multiple stents. States for the last 2 weeks he's been having symptoms of upper respiratory infection. As tested for Covid twice. The first result was negative. The second result is pending. He's been working with his primary care physician regarding this. Patient has some exertional shortness of breath. He also reports shortness of breath at rest. He does have sore throat. He has been having constitutional symptoms. He also has some mild pleuritic chest pain. The ROS documented in this emergency department record has been reviewed and confirmed by me. Those systems with pertinent positive or negative responses have been documented in the HPI. All other systems are other negative and/or noncontributory. PHYSICAL EXAM: General Impression: Alert and oriented x3, not in acute distress HEENT: Normocephalic atraumatic, extra-ocular movements intact, pupils equal and reactive to light bilaterally, mucous membranes moist. Cardiovascular: Heart regular rate and rhythm Chest: Able to complete full sentences, no retractions, no tachypnea Abdomen: abdomen soft, non-tender, non-distended, no organomegaly Musculoskeletal: Pulses present and equal in all extremities, no peripheral edema Motor: no focal deficits noted Neurological: CN II-XII grossly intact, no focal motor or sensory deficits noted Skin: Intact with no visualized rashes Psych: Normal affect and mood ED course: 74-year-old male presents with respiratory infectious symptoms. Signs upon arrival shows temperature 102.4, 90% on room oxygen. Rest of vital signs within acceptable limits. Patient not hypoxic. Labs unremarkable. CBC, coag panel, venous blood gas negative. Mild lactic acidosis 2.1. Rest of labs unremarkable. Knapp virus test is positive. Patient is not hypoxic. Patient's 96 on room air. Patient given monoclonal antibodies. Patient tolerated infusion well without any adverse effects. Patient discharged. - Related Data Home Medications Medication Instructions Recorded Confirmed Allopurinol [Zyloprim] 100 mg PO DAILY 03/02/16 08/16/20 Mometasone/Formoterol [Dulera 100 2 puff INHALATION RT-BID 03/02/16 08/16/20 Mcg-5 Mcg Inhaler] Metoprolol Succinate [Toprol Xl] 50 mg PO DAILY 12/29/17 08/16/20 Tamsulosin HCl [Flomax] 0.4 mg PO W/SUPPER 12/29/17 08/16/20 Furosemide [Lasix] 20 mg PO DAILY 02/27/19 08/16/20 Ipratropium-Albuterol Nebulize 3 ml INHALATION RT-QID 02/27/19 08/16/20 [Duoneb 0.5 mg-3 mg/3 ml Soln] Lisinopril [Zestril] 10 mg PO DAILY 02/27/19 08/16/20 Rosuvastatin [Crestor] 20 mg PO W/SUPPER 02/27/19 08/16/20 Pantoprazole [Protonix] 40 mg PO DAILY 03/03/19 08/16/20 Doxycycline Hyclate 100 mg PO BID 08/16/20 08/16/20 Loratadine 10 mg PO DAILY 08/16/20 08/16/20 Montelukast Sodium [Singulair] 10 mg PO DAILY 08/16/20 08/16/20 metFORMIN HCL [Glucophage] 500 mg PO BID 08/16/20 08/16/20 predniSONE [Deltasone] See Taper PO DIRECTED 08/16/20 08/16/20 Allergies Allergy/AdvReac Type Severity Reaction Status Date / Time No Known Allergies Allergy Verified 08/16/20 19:05 Review of Systems ROS Statement: Those systems with pertinent positive or pertinent negative responses have been documented in the HPI. ROS Other: All systems not noted in ROS Statement are negative. Past Medical History Past Medical History: Chest Pain / Angina, COPD, Diabetes Mellitus, GERD/Reflux, GI Bleed, Myocardial Infarction ([place]), Skin Disorder Additional Past Medical History / Comment(s): Hx of rectal bleeding,hx rectal fissure,gout,bronchitis,uses O2 @ 2L NC at night and prn during the day. Last Myocardial Infarction Date:: 2005 History of Any Multi-Drug Resistant Organisms: None Reported Past Surgical History: Heart Catheterization With Stent Additional Past Surgical History / Comment(s): total 3 cardiac stents, surgery for cyst in rectal area, siddharth cataracts uro lift, cysts removed from testicles Past Anesthesia/Blood Transfusion Reactions: No Reported Reaction Date of Last Stent Placement:: 2005 Past Psychological History: No Psychological Hx Reported Smoking Status: Former smoker Past Alcohol Use History: Daily Past Drug Use History: None Reported - Past Family History Father Family Medical History: Cancer Mother Family Medical History: No Reported History Additional Family Medical History / Comment(s): Mother was healthy and lived to be in her 90s. General Exam Limitations: no limitations Course Vital Signs 08/16/20 08/16/20 08/16/20 17:12 18:00 18:30 Temperature 102.4 F H 100.9 F H Pulse Rate 98 86 88 Respiratory 20 20 22 Rate Blood Pressure 183/64 138/77 120/98 O2 Sat by Pulse 90 L 94 L 96 Oximetry 08/16/20 21:00 Temperature 100.6 F H Pulse Rate 77 Respiratory 18 Rate Blood Pressure 114/61 O2 Sat by Pulse 96 Oximetry Medical Decision Making - Lab Data Result diagrams: 08/16/20 17:46 08/16/20 17:46 Lab Results 08/16/20 08/16/20 08/16/20 Range/Units 17:46 17:46 17:46 WBC 4.9 (3.8-10.6) k/uL RBC 5.40 (4.30-5.90) m/uL Hgb 16.9 (13.0-17.5) gm/dL Hct 50.5 (39.0-53.0) % MCV 93.6 (80.0-100.0) fL MCH 31.4 (25.0-35.0) pg MCHC 33.5 (31.0-37.0) g/dL RDW 13.2 (11.5-15.5) % Plt Count 140 L (150-450) k/uL MPV 6.8 Neutrophils % 72 % Lymphocytes % 15 % Monocytes % 10 % Eosinophils % 0 % Basophils % 2 % Neutrophils # 3.5 (1.3-7.7) k/uL Lymphocytes # 0.7 L (1.0-4.8) k/uL Monocytes # 0.5 (0-1.0) k/uL Eosinophils # 0.0 (0-0.7) k/uL Basophils # 0.1 (0-0.2) k/uL PT 10.6 (9.0-12.0) sec INR 1.0 (<1.2) APTT 23.7 (22.0-30.0) sec VBG pH (7.31-7.41) VBG pCO2 (37-51) mmHg VBG HCO3 (24-28) mmol/L Sodium 133 L (137-145) mmol/L Potassium 5.0 (3.5-5.1) mmol/L Chloride 96 L (98-107) mmol/L Carbon Dioxide 27 (22-30) mmol/L Anion Gap 10 mmol/L BUN 18 (9-20) mg/dL Creatinine 1.20 (0.66-1.25) mg/dL Est GFR (CKD-EPI)AfAm 69 (>60 ml/min/1.73 sqM) Est GFR (CKD-EPI)NonAf 59 (>60 ml/min/1.73 sqM) Glucose 102 H (74-99) mg/dL Lactic Ac Sepsis Rflx Plasma Lactic Acid Nakul (0.7-2.0) mmol/L Calcium 9.4 (8.4-10.2) mg/dL Magnesium 1.4 L (1.6-2.3) mg/dL Total Bilirubin 0.6 (0.2-1.3) mg/dL AST 48 (17-59) U/L ALT 35 (4-49) U/L Alkaline Phosphatase 67 (38-126) U/L Troponin I (0.000-0.034) ng/mL C-Reactive Protein 27.7 H (<10.0) mg/L Total Protein 7.4 (6.3-8.2) g/dL Albumin 4.6 (3.5-5.0) g/dL Coronavirus (PCR) (Not Detectd) 08/16/20 08/16/20 08/16/20 Range/Units 17:46 17:46 17:46 WBC (3.8-10.6) k/uL RBC (4.30-5.90) m/uL Hgb (13.0-17.5) gm/dL Hct (39.0-53.0) % MCV (80.0-100.0) fL MCH (25.0-35.0) pg MCHC (31.0-37.0) g/dL RDW (11.5-15.5) % Plt Count (150-450) k/uL MPV Neutrophils % % Lymphocytes % % Monocytes % % Eosinophils % % Basophils % % Neutrophils # (1.3-7.7) k/uL Lymphocytes # (1.0-4.8) k/uL Monocytes # (0-1.0) k/uL Eosinophils # (0-0.7) k/uL Basophils # (0-0.2) k/uL PT (9.0-12.0) sec INR (<1.2) APTT (22.0-30.0) sec VBG pH (7.31-7.41) VBG pCO2 (37-51) mmHg VBG HCO3 (24-28) mmol/L Sodium (137-145) mmol/L Potassium (3.5-5.1) mmol/L Chloride (98-107) mmol/L Carbon Dioxide (22-30) mmol/L Anion Gap mmol/L BUN (9-20) mg/dL Creatinine (0.66-1.25) mg/dL Est GFR (CKD-EPI)AfAm (>60 ml/min/1.73 sqM) Est GFR (CKD-EPI)NonAf (>60 ml/min/1.73 sqM) Glucose (74-99) mg/dL Lactic Ac Sepsis Rflx Plasma Lactic Acid Nakul 2.1 H* (0.7-2.0) mmol/L Calcium (8.4-10.2) mg/dL Magnesium (1.6-2.3) mg/dL Total Bilirubin (0.2-1.3) mg/dL AST (17-59) U/L ALT (4-49) U/L Alkaline Phosphatase (38-126) U/L Troponin I <0.012 (0.000-0.034) ng/mL C-Reactive Protein (<10.0) mg/L Total Protein (6.3-8.2) g/dL Albumin (3.5-5.0) g/dL Coronavirus (PCR) Detected A (Not Detectd) 08/16/20 08/16/20 Range/Units 17:46 19:34 WBC (3.8-10.6) k/uL RBC (4.30-5.90) m/uL Hgb (13.0-17.5) gm/dL Hct (39.0-53.0) % MCV (80.0-100.0) fL MCH (25.0-35.0) pg MCHC (31.0-37.0) g/dL RDW (11.5-15.5) % Plt Count (150-450) k/uL MPV Neutrophils % % Lymphocytes % % Monocytes % % Eosinophils % % Basophils % % Neutrophils # (1.3-7.7) k/uL Lymphocytes # (1.0-4.8) k/uL Monocytes # (0-1.0) k/uL Eosinophils # (0-0.7) k/uL Basophils # (0-0.2) k/uL PT (9.0-12.0) sec INR (<1.2) APTT (22.0-30.0) sec VBG pH 7.41 (7.31-7.41) VBG pCO2 43 (37-51) mmHg VBG HCO3 27 (24-28) mmol/L Sodium (137-145) mmol/L Potassium (3.5-5.1) mmol/L Chloride (98-107) mmol/L Carbon Dioxide (22-30) mmol/L Anion Gap mmol/L BUN (9-20) mg/dL Creatinine (0.66-1.25) mg/dL Est GFR (CKD-EPI)AfAm (>60 ml/min/1.73 sqM) Est GFR (CKD-EPI)NonAf (>60 ml/min/1.73 sqM) Glucose (74-99) mg/dL Lactic Ac Sepsis Rflx Y Plasma Lactic Acid Nakul (0.7-2.0) mmol/L Calcium (8.4-10.2) mg/dL Magnesium (1.6-2.3) mg/dL Total Bilirubin (0.2-1.3) mg/dL AST (17-59) U/L ALT (4-49) U/L Alkaline Phosphatase (38-126) U/L Troponin I (0.000-0.034) ng/mL C-Reactive Protein (<10.0) mg/L Total Protein (6.3-8.2) g/dL Albumin (3.5-5.0) g/dL Coronavirus (PCR) (Not Detectd) Disposition Clinical Impression: COVID-19 Disposition: HOME SELF-CARE Condition: Good Instructions (If sedation given, give patient instructions): Viral Pneumonia (ED) Additional Instructions: Today you were evaluated for symptoms consistent with upper respiratory infection. Today you tested positive for Covid 19. Your are stable for discharge, however it is instructed to to seek immediate medical attention especially if you develop worsening symptoms especially respiratory distress. If possible, try to obtain a pulse oximeter and monitor your oxygen at home. In the meantime please remain in quarantine for 14 days. For any other questions please contact [place] for here in emergency department or [facility] at [phone] Is patient prescribed a controlled substance at d/c from ED?: No Referrals: Deanna Kate MD [Primary Care Provider] - 1-2 days Time of Disposition: 21:49
[2020-08-16] MEDS ORDERED: SODIUM CHLORIDE 0.9% 500 ML 500 ML IV STA (17:24)
[2020-08-16] MEDS ORDERED: ACETAMINOPHEN TAB 500 MG TAB PO STA (17:24)
[2020-08-16] MEDS ORDERED: dexAMETHasone 4 MG TAB PO STA (17:24)
[2020-08-16 17:57] LABS: VBG PH 7.41 (7.31-7.41)
[2020-08-16 17:58] LABS: Basophils # (A) 0.1 k/uL (0-0.2); Basophils % (A) 2 %; Eosinophils % (A) 0 %; HCT 50.5 % (39.0-53.0); HGB 16.9 gm/dL (13.0-17.5); Lymphocytes # (A) 0.7 k/uL (1.0-4.8); Lymphocytes % (A) 15 %; MCH 31.4 pg (25.0-35.0); MCHC 33.5 g/dL (31.0-37.0); MCV 93.6 fL (80.0-100.0); Mean Platelet Volume 6.8; Monocytes # (A) 0.5 k/uL (0-1.0); Monocytes % (A) 10 %; Neutrophils # (A) 3.5 k/uL (1.3-7.7); Neutrophils % (A) 72 %; Platelet Count 140 k/uL (150-450); RDW 13.2 % (11.5-15.5); WBC 4.9 k/uL (3.8-10.6)
[2020-08-16 18:07] LABS: Partial Thromboplastin Time 23.7 sec (22.0-30.0); Prothrombin Time 10.6 sec (9.0-12.0)
[2020-08-16 18:11] LABS: Albumin 4.6 g/dL (3.5-5.0); C Reactive Protein 27.7 mg/L (<10.0); Calcium 9.4 mg/dL (8.4-10.2); Magnesium 1.4 mg/dL (1.6-2.3); Total Bilirubin 0.6 mg/dL (0.2-1.3); Total Protein 7.4 g/dL (6.3-8.2)
--- NOTE | 2020-08-16 18:35 | XR ---
EXAMINATION TYPE: XR chest 1V portable DATE OF EXAM: 08/16/2020 COMPARISON: 09/27/2018 HISTORY: Short of breath TECHNIQUE: Roxane view FINDINGS: There is some coarse interstitial infiltrates in the mid and lower lung andino. There is at electasis right midlung field. Heart size is normal. There is no heart failure. There is probably james e emphysema. IMPRESSION: Interstitial infiltrates and atelectasis are increased slightly compared to old exam. [employer] D.
[2020-08-16] MEDS ORDERED: BAMLANIVIMAB 700 MG in SODIUM CHLORIDE 0.9% 50 ML IVPB ONE (21:30)
[2020-08-16 23:37] VITALS: BP 101/57; PULSE 80; RESP 20; TEMP 99.3
== END 2020-08-16 23:36 | disposition home or self-care (01) ==
LOC: EC 15:25
DX: U07.1 COVID-19 (principal); E11.36 Type 2 diabetes mellitus with diabetic cataract; I25.2 Old myocardial infarction; J44.9 Chronic obstructive pulmonary disease, unspecified; K21.9 Gastro-esophageal reflux disease without esophagitis; Z79.51 Long term (current) use of inhaled steroids; Z79.84 Long term (current) use of oral hypoglycemic drugs; Z87.891 Personal history of nicotine dependence
CPT/HCPCS: 36415; 71045; 80053; 82803; 83605; 83735; 84484; 85025; 85610; 85730; 86140; 87040; 87635; 94640; 96361; 96365; 99284

== ENCOUNTER 2020-10-10 02:12 | Inpatient (IN) | payer MEDICARE ==
[2020-10-10] MEDS ORDERED: ALBUTEROL NEBULIZED 2.5 MG/3 ML INHALATION STA (02:37)
[2020-10-10] MEDS ORDERED: methylPREDNISolone SOD SUCCI 125 MG/2 ML VIAL IV STA (02:37)
[2020-10-10] MEDS ORDERED: IPRATROPIUM 0.5 MG/2.5 ML NEBU INHALATION STA (02:37)
[2020-10-10] MEDS ORDERED: SODIUM CHLORIDE 0.9% 1,000 ML IV STA ×2 (02:37)
--- NOTE | 2020-10-10 02:38 | ED ---
SOB HPI - General Chief Complaint: Shortness of Breath Stated Complaint: SOB Time Seen by Provider: 10/10/20 02:13 Source: patient Mode of arrival: wheelchair Limitations: no limitations - History of Present Illness Initial Comments: This is a 75-year-old male DF for evaluation patient Dese for evaluation of severe shortness of breath patient is persistent with shortness of breath despite at-home breathing treatments. Patient feeling weak secondary to shortness of breath but denying any chest pain. No fevers. Patient states home medications are does not help. MD Complaint: shortness of breath, cough -: days(s) Severity: moderate Severity scale (1-10): 5 Consistency: constant Improves With: nothing Worsens With: nothing Known History Of: COPD, congestive heart failure Context: recent URI Associated Symptoms: cough, sputum production Treatments Prior to Arrival: none, oxygen, bronchodilator - Related Data Home Medications Medication Instructions Recorded Confirmed Allopurinol [Zyloprim] 100 mg PO DAILY 03/02/16 10/10/20 Mometasone/Formoterol [Dulera 100 2 puff INHALATION RT-BID 03/02/16 10/10/20 Mcg-5 Mcg Inhaler] Metoprolol Succinate [Toprol Xl] 50 mg PO DAILY 12/29/17 10/10/20 Tamsulosin HCl [Flomax] 0.4 mg PO W/SUPPER 12/29/17 10/10/20 Ipratropium-Albuterol Nebulize 3 ml INHALATION RT-Q4H 02/27/19 10/10/20 [Duoneb 0.5 mg-3 mg/3 ml Soln] Lisinopril [Zestril] 10 mg PO DAILY 02/27/19 10/10/20 Rosuvastatin [Crestor] 20 mg PO W/SUPPER 02/27/19 10/10/20 Pantoprazole [Protonix] 40 mg PO DAILY 03/03/19 10/10/20 Loratadine 10 mg PO DAILY 08/16/20 10/10/20 Montelukast Sodium [Singulair] 10 mg PO HS 08/16/20 10/10/20 Aspirin EC [Ecotrin Low Dose] 81 mg PO DAILY 10/10/20 10/10/20 Ergocalciferol [Vitamin D2 (1250 1,250 mcg PO Q14D 10/10/20 10/10/20 Mcg = 23943 Iu)] Previous Rx's Medication Instructions Recorded Doxycycline Monohydrate [Monodox] 100 mg PO Q12HR #6 cap 10/10/20 predniSONE 10 mg PO DAILY #30 tab 10/10/20 Allergies Allergy/AdvReac Type Severity Reaction Status Date / Time No Known Allergies Allergy Verified 10/10/20 08:25 Review of Systems ROS Statement: Those systems with pertinent positive or pertinent negative responses have been documented in the HPI. ROS Other: All systems not noted in ROS Statement are negative. Past Medical History Past Medical History: Chest Pain / Angina, COPD, Diabetes Mellitus, GERD/Reflux, GI Bleed, Myocardial Infarction (CT), Skin Disorder Additional Past Medical History / Comment(s): Hx of rectal bleeding,hx rectal fissure,gout,bronchitis,uses O2 @ 2L NC at night and prn during the day. +covid 09/08 Last Myocardial Infarction Date:: approx 2005 History of Any Multi-Drug Resistant Organisms: None Reported Past Surgical History: Heart Catheterization With Stent Additional Past Surgical History / Comment(s): total 3 cardiac stents, surgery for cyst in rectal area, siddharth cataracts uro lift, cysts removed from testicles Past Anesthesia/Blood Transfusion Reactions: No Reported Reaction Date of Last Stent Placement:: 2005 Past Psychological History: No Psychological Hx Reported Smoking Status: Former smoker Past Alcohol Use History: Daily Past Drug Use History: None Reported - Past Family History Father Family Medical History: Cancer Mother Family Medical History: No Reported History Additional Family Medical History / Comment(s): Mother was healthy and lived to be in her 90s. General Exam Limitations: no limitations General appearance: alert, in no apparent distress, anxious Head exam: Present: atraumatic, normocephalic, normal inspection Eye exam: Present: normal appearance, PERRL, EOMI. Absent: scleral icterus, conjunctival injection, periorbital swelling ENT exam: Present: normal exam, mucous membranes moist Neck exam: Present: normal inspection. Absent: tenderness, meningismus, lymphadenopathy Respiratory exam: Present: wheezes, rales, decreased breath sounds, prolonged expiratory. Absent: respiratory distress, rhonchi, stridor Cardiovascular Exam: Present: normal rhythm, tachycardia, normal heart sounds. Absent: systolic murmur, diastolic murmur, rubs, gallop, clicks GI/Abdominal exam: Present: soft, normal bowel sounds. Absent: distended, tenderness, guarding, rebound, rigid Extremities exam: Present: normal inspection, full ROM, normal capillary refill. Absent: tenderness, pedal edema, joint swelling, calf tenderness Back exam: Present: normal inspection Neurological exam: Present: alert, oriented X3, CN II-XII intact Psychiatric exam: Present: normal affect, normal mood Skin exam: Present: warm, dry, intact, normal color. Absent: rash Course Vital Signs 10/10/20 10/10/20 10/10/20 02:13 02:54 03:44 Temperature 98.3 F Pulse Rate 103 H 92 Respiratory 26 H 22 Rate Blood Pressure 152/79 O2 Sat by Pulse 90 L Oximetry 10/10/20 10/10/20 10/10/20 04:00 04:15 04:17 Temperature Pulse Rate 97 97 97 Respiratory 22 Rate Blood Pressure 115/53 O2 Sat by Pulse 99 Oximetry 10/10/20 10/10/20 10/10/20 04:35 07:27 08:18 Temperature 98.9 F Pulse Rate 97 85 90 Respiratory 16 Rate Blood Pressure 114/79 O2 Sat by Pulse 98 Oximetry 10/10/20 10/10/20 10/10/20 08:30 10:15 11:11 Temperature Pulse Rate 94 95 96 Respiratory 16 Rate Blood Pressure 130/73 O2 Sat by Pulse 98 Oximetry 10/10/20 10/10/20 10/10/20 11:22 11:49 15:00 Temperature 97.9 F 98.2 F Pulse Rate 94 98 98 Respiratory 20 20 Rate Blood Pressure 160/86 168/90 O2 Sat by Pulse 93 L 95 Oximetry - Reevaluation(s) Reevaluation #1: Medical record is reviewed Symptoms improved here significantly in the emergency room Patient informed results and questions answered Medical Decision Making - Medical Decision Making 75 male with COPD and hypoxia complicated with pneumonia. Patient be admitted for further evaluation management, supportive care - Lab Data Result diagrams: 10/10/20 02:44 10/10/20 02:44 Lab Results 10/10/20 10/10/20 10/10/20 Range/Units 02:44 02:44 02:44 WBC 12.6 H (3.8-10.6) k/uL RBC 4.79 (4.30-5.90) m/uL Hgb 15.7 (13.0-17.5) gm/dL Hct 45.1 (39.0-53.0) % MCV 94.3 (80.0-100.0) fL MCH 32.8 (25.0-35.0) pg MCHC 34.8 (31.0-37.0) g/dL RDW 13.6 (11.5-15.5) % Plt Count 162 (150-450) k/uL MPV 6.9 Neutrophils % 81 % Lymphocytes % 11 % Monocytes % 5 % Eosinophils % 2 % Basophils % 0 % Neutrophils # 10.3 H (1.3-7.7) k/uL Lymphocytes # 1.3 (1.0-4.8) k/uL Monocytes # 0.6 (0-1.0) k/uL Eosinophils # 0.2 (0-0.7) k/uL Basophils # 0.0 (0-0.2) k/uL PT 10.6 (9.0-12.0) sec INR 1.0 (<1.2) APTT 23.6 (22.0-30.0) sec Sodium 133 L (137-145) mmol/L Potassium 4.8 (3.5-5.1) mmol/L Chloride 99 (98-107) mmol/L Carbon Dioxide 26 (22-30) mmol/L Anion Gap 8 mmol/L BUN 15 (9-20) mg/dL Creatinine 1.41 H (0.66-1.25) mg/dL Est GFR (CKD-EPI)AfAm 56 (>60 ml/min/1.73 sqM) Est GFR (CKD-EPI)NonAf 49 (>60 ml/min/1.73 sqM) Glucose 143 H (74-99) mg/dL Plasma Lactic Acid Nakul (0.7-2.0) mmol/L Calcium 9.5 (8.4-10.2) mg/dL Total Bilirubin 1.0 (0.2-1.3) mg/dL AST 31 (17-59) U/L ALT 23 (4-49) U/L Alkaline Phosphatase 86 (38-126) U/L Troponin I (0.000-0.034) ng/mL NT-Pro-B Natriuret Pep pg/mL Total Protein 6.5 (6.3-8.2) g/dL Albumin 4.2 (3.5-5.0) g/dL 10/10/20 10/10/20 10/10/20 Range/Units 02:44 02:44 02:44 WBC (3.8-10.6) k/uL RBC (4.30-5.90) m/uL Hgb (13.0-17.5) gm/dL Hct (39.0-53.0) % MCV (80.0-100.0) fL MCH (25.0-35.0) pg MCHC (31.0-37.0) g/dL RDW (11.5-15.5) % Plt Count (150-450) k/uL MPV Neutrophils % % Lymphocytes % % Monocytes % % Eosinophils % % Basophils % % Neutrophils # (1.3-7.7) k/uL Lymphocytes # (1.0-4.8) k/uL Monocytes # (0-1.0) k/uL Eosinophils # (0-0.7) k/uL Basophils # (0-0.2) k/uL PT (9.0-12.0) sec INR (<1.2) APTT (22.0-30.0) sec Sodium (137-145) mmol/L Potassium (3.5-5.1) mmol/L Chloride (98-107) mmol/L Carbon Dioxide (22-30) mmol/L Anion Gap mmol/L BUN (9-20) mg/dL Creatinine (0.66-1.25) mg/dL Est GFR (CKD-EPI)AfAm (>60 ml/min/1.73 sqM) Est GFR (CKD-EPI)NonAf (>60 ml/min/1.73 sqM) Glucose (74-99) mg/dL Plasma Lactic Acid Nakul 1.5 (0.7-2.0) mmol/L Calcium (8.4-10.2) mg/dL Total Bilirubin (0.2-1.3) mg/dL AST (17-59) U/L ALT (4-49) U/L Alkaline Phosphatase (38-126) U/L Troponin I <0.012 (0.000-0.034) ng/mL NT-Pro-B Natriuret Pep 94 pg/mL Total Protein (6.3-8.2) g/dL Albumin (3.5-5.0) g/dL - Radiology Data Radiology results: report reviewed (Chest x-ray shows edema versus infection), image reviewed Disposition Clinical Impression: COPD exacerbation, Hypoxia, Community acquired pneumonia Disposition: ADMITTED IP TO THIS HOSP Condition: Good Is patient prescribed a controlled substance at d/c from ED?: No
--- NOTE | 2020-10-10 03:15 | XR ---
EXAM: XR Chest, 1 View CLINICAL HISTORY: ITS.REASON XR Reason: saib TECHNIQUE: Frontal view of the chest. COMPARISON: 08/16/2020 IMPRESSION: Increased interstitial opacities in the right mid to lower lobes. Correlate with edema or infectious process. Cardiomegaly. No effusion.
[2020-10-10 03:32] LABS: Albumin 4.2 g/dL (3.5-5.0); Calcium 9.5 mg/dL (8.4-10.2); Potassium 4.8 mmol/L (3.5-5.1); Total Protein 6.5 g/dL (6.3-8.2)
[2020-10-10 03:34] LABS: Basophils % (A) 0 %; Eosinophils # (A) 0.2 k/uL (0-0.7); Eosinophils % (A) 2 %; HCT 45.1 % (39.0-53.0); HGB 15.7 gm/dL (13.0-17.5); Lymphocytes # (A) 1.3 k/uL (1.0-4.8); Lymphocytes % (A) 11 %; MCH 32.8 pg (25.0-35.0); MCHC 34.8 g/dL (31.0-37.0); MCV 94.3 fL (80.0-100.0); Mean Platelet Volume 6.9; Monocytes # (A) 0.6 k/uL (0-1.0); Monocytes % (A) 5 %; Neutrophils # (A) 10.3 k/uL (1.3-7.7); Neutrophils % (A) 81 %; Platelet Count 162 k/uL (150-450); RBC 4.79 m/uL (4.30-5.90); RDW 13.6 % (11.5-15.5); WBC 12.6 k/uL (3.8-10.6)
[2020-10-10 03:35] LABS: Partial Thromboplastin Time 23.6 sec (22.0-30.0); Prothrombin Time 10.6 sec (9.0-12.0)
[2020-10-10] MEDS ORDERED: IPRATROPIUM-ALBUTEROL 3 ML NEB INHALATION STA (03:35)
[2020-10-10] MEDS ORDERED: AZITHROMYCIN 500 MG in SODIUM CHLORIDE 0.9% 250 ML IVPB STA (03:35)
[2020-10-10] MEDS ORDERED: PNEUMONIA PROTOCOL UTILIZED 1 EACH MISC PO PRN (03:35)
[2020-10-10] MEDS ORDERED: SODIUM CHLORIDE 0.9% 1,000 ML IV SCH (03:45)
[2020-10-10] MEDS: IPRATROPIUM-ALBUTEROL 3 ML NEB INHALATION SCH ×3 (07:47→11:10)
[2020-10-10 11:54] VITALS: PULSE 98; RESP 20
[2020-10-10] MEDS ORDERED: METOPROLOL SUCCINATE (ER) 50 MG TAB.ER.24H PO STA (12:36)
[2020-10-10 15:06] VITALS: BP 168/90; TEMP 98.2
[2020-10-10] MEDS ORDERED: TAMSULOSIN 0.4 MG CAP.ER.24H PO SCH (17:30)
[2020-10-10] MEDS ORDERED: ATORVASTATIN 40 MG TAB PO SCH (17:30)
--- NOTE | 2020-10-10 18:10 | P.DS ---
Providers Date of admission: 10/10/20 03:35 Attending physician: Karolina Orona Primary care physician: [facility] Course: Refer to HPI for further details Patient Condition at Discharge: Good Plan - Discharge Summary New Discharge Prescriptions: New Doxycycline Monohydrate [Monodox] 100 mg PO Q12HR #6 cap predniSONE 10 mg PO DAILY #30 tab Continue Mometasone/Formoterol [Dulera 100 Mcg-5 Mcg Inhaler] 2 puff INHALATION RT-BID Allopurinol [Zyloprim] 100 mg PO DAILY Tamsulosin HCl [Flomax] 0.4 mg PO W/SUPPER Metoprolol Succinate [Toprol Xl] 50 mg PO DAILY Rosuvastatin [Crestor] 20 mg PO W/SUPPER Lisinopril [Zestril] 10 mg PO DAILY Ipratropium-Albuterol Nebulize [Duoneb 0.5 mg-3 mg/3 ml Soln] 3 ml INHALATION RT-Q4H Pantoprazole [Protonix] 40 mg PO DAILY Loratadine 10 mg PO DAILY Aspirin EC [Ecotrin Low Dose] 81 mg PO DAILY Montelukast Sodium [Singulair] 10 mg PO HS Ergocalciferol [Vitamin D2 (1250 Mcg = 31590 Iu)] 1,250 mcg PO Q14D Discontinued Furosemide [Lasix] 20 mg PO DAILY Discharge Medication List Allopurinol [Zyloprim] 100 mg PO DAILY 03/02/16 [History] Mometasone/Formoterol [Dulera 100 Mcg-5 Mcg Inhaler] 2 puff INHALATION RT-BID 03/02/16 [History] Metoprolol Succinate [Toprol Xl] 50 mg PO DAILY 12/29/17 [History] Tamsulosin HCl [Flomax] 0.4 mg PO W/SUPPER 12/29/17 [History] Ipratropium-Albuterol Nebulize [Duoneb 0.5 mg-3 mg/3 ml Soln] 3 ml INHALATION RT-Q4H 02/27/19 [History] Lisinopril [Zestril] 10 mg PO DAILY 02/27/19 [History] Rosuvastatin [Crestor] 20 mg PO W/SUPPER 02/27/19 [History] Pantoprazole [Protonix] 40 mg PO DAILY 03/03/19 [History] Loratadine 10 mg PO DAILY 08/16/20 [History] Montelukast Sodium [Singulair] 10 mg PO HS 08/16/20 [History] Aspirin EC [Ecotrin Low Dose] 81 mg PO DAILY 10/10/20 [History] Doxycycline Monohydrate [Monodox] 100 mg PO Q12HR #6 cap 10/10/20 [Rx] Ergocalciferol [Vitamin D2 (1250 Mcg = 53970 Iu)] 1,250 mcg PO Q14D 10/10/20 [History] predniSONE 10 mg PO DAILY #30 tab 10/10/20 [Rx] Follow up Appointment(s)/Referral(s): Deanna Kate MD [Primary Care Provider] - 3 Days Gary Lee MD [STAFF PHYSICIAN] - 1 Week Discharge Disposition: HOME SELF-CARE
--- NOTE | 2020-10-10 18:10 | P.HPIM ---
History of Present Illness Patient is a pleasant 70-year-old male came in with compensative shortness of breath found to be in COPD exacerbation and received IV steroids and inhalational treatments with after which his symptoms improved patient uses oxygen as needed basis at home patient is on room air today is saturating at 95%. Patient had a chest x-ray which didn't show any obvious lobar infiltrate but did show interstitial densities. Patient doesn't have any fever doesn't has mild leukocytosis patient did have a cough with some sputum production. Clinically patient doesn't have pneumonia or CHF patient BNP is only 98 patient although has elevated creatinine of 1.4 on baseline is around 1.2. Patient is also bit hyponatremic patient was recently started on Lasix for bilateral lower extremity pedal edema I do not believe patient has CHF and patient had normal ejection fraction the past patient doesn't didn't have any pedal edema today patient was asked to wear compression socks Lasix is being discontinued because of acute renal failure and hypernatremia. Patient is clinically doing well and is requesting to go home patient will be discharged on weaning dose of prednisone and doxycycline will continue with his inhalers. Patient quit smoking in 2017 Review of Systems REVIEW OF SYSTEMS: CONSTITUTIONAL: No fever, no malaise, no fatigue. HEENT: No recent visual problems or hearing problems. Denied any sore throat. CARDIOVASCULAR: No chest pain, orthopnea, PND, no palpitations, no syncope. PULMONARY: As mentioned in HPI GASTROINTESTINAL: No diarrhea, no nausea, no vomiting, no abdominal pain. NEUROLOGICAL: No headaches, no weakness, no numbness. HEMATOLOGICAL: Denies any bleeding or petechiae. GENITOURINARY: Denies any burning micturition, frequency, or urgency. MUSCULOSKELETAL/RHEUMATOLOGICAL: Denies any joint pain, swelling, or any muscle pain. ENDOCRINE: Denies any polyuria or polydipsia. The rest of the 14-point review of systems is negative. Past Medical History Past Medical History: Chest Pain / Angina, COPD, Diabetes Mellitus, GERD/Reflux, GI Bleed, Myocardial Infarction (DC), Skin Disorder Additional Past Medical History / Comment(s): Hx of rectal bleeding,hx rectal fissure,gout,bronchitis,uses O2 @ 2L NC at night and prn during the day. +covid 09/08 Last Myocardial Infarction Date:: approx 2005 History of Any Multi-Drug Resistant Organisms: None Reported Past Surgical History: Heart Catheterization With Stent Additional Past Surgical History / Comment(s): total 3 cardiac stents, surgery for cyst in rectal area, siddharth cataracts uro lift, cysts removed from testicles Past Anesthesia/Blood Transfusion Reactions: No Reported Reaction Date of Last Stent Placement:: 2005 Past Psychological History: No Psychological Hx Reported Smoking Status: Former smoker Past Alcohol Use History: Daily Past Drug Use History: None Reported - Past Family History Father Family Medical History: Cancer Mother Family Medical History: No Reported History Additional Family Medical History / Comment(s): Mother was healthy and lived to be in her 90s. Medications and Allergies Home Medications Medication Instructions Recorded Confirmed Type Allopurinol [Zyloprim] 100 mg PO DAILY 03/02/16 10/10/20 History Mometasone/Formoterol [Dulera 100 2 puff INHALATION RT-BID 03/02/16 10/10/20 History Mcg-5 Mcg Inhaler] Metoprolol Succinate [Toprol Xl] 50 mg PO DAILY 12/29/17 10/10/20 History Tamsulosin HCl [Flomax] 0.4 mg PO W/SUPPER 12/29/17 10/10/20 History Ipratropium-Albuterol Nebulize 3 ml INHALATION RT-Q4H 02/27/19 10/10/20 History [Duoneb 0.5 mg-3 mg/3 ml Soln] Lisinopril [Zestril] 10 mg PO DAILY 02/27/19 10/10/20 History Rosuvastatin [Crestor] 20 mg PO W/SUPPER 02/27/19 10/10/20 History Pantoprazole [Protonix] 40 mg PO DAILY 03/03/19 10/10/20 History Loratadine 10 mg PO DAILY 08/16/20 10/10/20 History Montelukast Sodium [Singulair] 10 mg PO HS 08/16/20 10/10/20 History Aspirin EC [Ecotrin Low Dose] 81 mg PO DAILY 10/10/20 10/10/20 History Doxycycline Monohydrate [Monodox] 100 mg PO Q12HR #6 cap 10/10/20 Rx Ergocalciferol [Vitamin D2 (1250 1,250 mcg PO Q14D 10/10/20 10/10/20 History Mcg = 47704 Iu)] predniSONE 10 mg PO DAILY #30 tab 10/10/20 Rx Allergies Allergy/AdvReac Type Severity Reaction Status Date / Time No Known Allergies Allergy Verified 10/10/20 08:25 Physical Exam Vitals: Vital Signs Temp Pulse Resp BP Pulse Ox 10/10/20 15:00 98.2 F 98 20 168/90 95 10/10/20 11:49 97.9 F 98 20 160/86 93 L 10/10/20 11:22 94 10/10/20 11:11 96 10/10/20 10:15 95 16 130/73 98 10/10/20 08:30 94 10/10/20 08:18 90 10/10/20 07:27 98.9 F 85 16 114/79 98 10/10/20 04:35 97 10/10/20 04:17 97 22 115/53 99 10/10/20 04:15 97 10/10/20 04:00 97 10/10/20 03:44 92 10/10/20 02:54 22 10/10/20 02:13 98.3 F 103 H 26 H 152/79 90 L Intake and Output 10/10/20 10/10/20 10/10/20 06:59 14:59 22:59 Output Total 800 Balance -800 Output: Urine 800 Other: # Voids 3 Weight 113.398 kg PHYSICAL EXAMINATION: GENERAL: The patient is alert and oriented x3, not in any acute distress. Well developed, well nourished. HEENT: Pupils are round and equally reacting to light. EOMI. No scleral icterus. No conjunctival pallor. Normocephalic, atraumatic. No pharyngeal erythema. No thyromegaly. CARDIOVASCULAR: S1 and S2 present. No murmurs, rubs, or gallops. PULMONARY: Mildly diminished air entry into bilateral lung andino no wheezing was appreciated ABDOMEN: Soft, nontender, nondistended, normoactive bowel sounds. No palpable organomegaly. MUSCULOSKELETAL: No joint swelling or deformity. EXTREMITIES: No cyanosis, clubbing, or pedal edema. NEUROLOGICAL: Gross neurological examination did not reveal any focal deficits. SKIN: No rashes. Results CBC & Chem 7: 10/10/20 02:44 10/10/20 02:44 Labs: Abnormal Lab Results - Last 24 Hours (Table) 10/10/20 10/10/20 Range/Units 02:44 02:44 WBC 12.6 H (3.8-10.6) k/uL Neutrophils # 10.3 H (1.3-7.7) k/uL Sodium 133 L (137-145) mmol/L Creatinine 1.41 H (0.66-1.25) mg/dL Glucose 143 H (74-99) mg/dL Microbiology - Last 24 Hours (Table) 10/10/20 08:26 Sputum Culture - Preliminary Sputum Assessment and Plan Plan: -COPD exacerbation with significant improvement in wheezing patient was discharged on weaning dose of steroids and doxycycline for bronchitis. Patient is a group and improvement with overnight steroids and breathing treatments -Acute renal failure secondary to Lasix, Lasix will be held -Hyponatremia secondary to diuretics which will be held patient doesn't have any evidence of CHF exacerbation patient the will be given prescription for co mpression socks -Type 2 diabetes mellitus -Gastroesophageal reflux disease -Coronary artery disease with stents in the past -Leukocytosis reactive and secondary to bronchitis. Patient is being discharged today
[2020-10-10] MEDS ORDERED: SYMBICORT 80-4.5 MCG INHALER INHALATION SCH (20:00)
[2020-10-10] MEDS ORDERED: MONTELUKAST 10 MG TAB PO SCH (21:00)
[2020-10-11] MEDS ORDERED: PANTOPRAZOLE 40 MG TABLET PO SCH (07:30)
[2020-10-11] MEDS ORDERED: AZITHROMYCIN 500 MG TAB PO SCH (09:00)
[2020-10-11] MEDS ORDERED: METOPROLOL SUCCINATE (ER) 50 MG TAB.ER.24H PO SCH (09:00)
[2020-10-11] MEDS ORDERED: allopurinoL 100 MG TAB PO SCH (09:00)
[2020-10-11] MEDS ORDERED: ASPIRIN 81 MG PO SCH (09:00)
[2020-10-17] MEDS ORDERED: ERGOCALCIFEROL 1,250 MCG (50,000 IU) CAPSULE PO SCH (09:00)
== END 2020-10-10 15:06 | disposition home or self-care (01) | DRG 190 ==
LOC: EC 02:12 → 4SSUR 03:35
PROVIDERS: ADMIT Hospitalist; ATTEND Hospitalist
DX: J44.1 Chronic obstructive pulmonary disease with (acute) exacerbation (principal); J18.9 Pneumonia, unspecified organism; E87.0 Hyperosmolality and hypernatremia; N17.9 Acute kidney failure, unspecified; E87.1 Hypo-osmolality and hyponatremia; Z79.82 Long term (current) use of aspirin; Z87.891 Personal history of nicotine dependence; Z95.5 Presence of coronary angioplasty implant and graft; I25.10 Atherosclerotic heart disease of native coronary artery without angina pectoris; H26.9 Unspecified cataract; J44.0 Chronic obstructive pulmonary disease with (acute) lower respiratory infection; T50.2X5A Adverse effect of carbonic-anhydrase inhibitors, benzothiadiazides and other diuretics, initial encounter; Z20.822 Contact with and (suspected) exposure to COVID-19; E11.9 Type 2 diabetes mellitus without complications; K21.9 Gastro-esophageal reflux disease without esophagitis; I25.2 Old myocardial infarction; Z79.51 Long term (current) use of inhaled steroids; T50.1X5A Adverse effect of loop [high-ceiling] diuretics, initial encounter; Z86.16 Personal history of COVID-19; R09.02 Hypoxemia
CPT/HCPCS: 36415; 71045; 80053; 83605; 83880; 84484; 85025; 85610; 85730; 87040; 87070; 87205; 87635; 93005; 94640; 94644; 96374; 99285

== ENCOUNTER 2020-12-11 19:54 | Inpatient (IN) | payer MEDICARE ==
[2020-12-11] MEDS ORDERED: methylPREDNISolone SOD SUCCI 125 MG/2 ML VIAL IV STA (20:11)
[2020-12-11] MEDS ORDERED: IPRATROPIUM-ALBUTEROL 3 ML NEB INHALATION STA ×2 (20:11→21:32)
[2020-12-11] MEDS ORDERED: FAMOTIDINE 20 MG/2 ML VIAL IV STA (20:12)
--- NOTE | 2020-12-11 20:16 | ED ---
SOB HPI - General Chief Complaint: Shortness of Breath Stated Complaint: JASMIN, COPD Time Seen by Provider: 12/11/20 20:02 Source: patient Mode of arrival: ambulatory - History of Present Illness Initial Comments: 75-year-old male with history of oxygen-dependent COPD, 2 L nasal cannula at home presenting to the emergency department with chief complaint shortness of breath. He reports over the last several days he developed increased exertional dyspnea along with wheezing. States he uses multiple inhalers at home with minimal improvement in his symptoms. He denies any fevers or chills. Denies any associated chest pain. This feels like his previous COPD exacerbation. S yarieliglesia he was admitted several months ago for COPD exacerbation with pneumonia. - Related Data Home Medications Medication Instructions Recorded Confirmed Allopurinol [Zyloprim] 100 mg PO DAILY 03/02/16 10/10/20 Mometasone/Formoterol [Dulera 100 2 puff INHALATION RT-BID 03/02/16 10/10/20 Mcg-5 Mcg Inhaler] Metoprolol Succinate [Toprol Xl] 50 mg PO DAILY 12/29/17 10/10/20 Tamsulosin HCl [Flomax] 0.4 mg PO W/SUPPER 12/29/17 10/10/20 Ipratropium-Albuterol Nebulize 3 ml INHALATION RT-Q4H 02/27/19 10/10/20 [Duoneb 0.5 mg-3 mg/3 ml Soln] Lisinopril [Zestril] 10 mg PO DAILY 02/27/19 10/10/20 Rosuvastatin [Crestor] 20 mg PO W/SUPPER 02/27/19 10/10/20 Pantoprazole [Protonix] 40 mg PO DAILY 03/03/19 10/10/20 Loratadine 10 mg PO DAILY 08/16/20 10/10/20 Montelukast Sodium [Singulair] 10 mg PO HS 08/16/20 10/10/20 Aspirin EC [Ecotrin Low Dose] 81 mg PO DAILY 10/10/20 10/10/20 Ergocalciferol [Vitamin D2 (1250 1,250 mcg PO Q14D 10/10/20 10/10/20 Mcg = 71813 Iu)] Previous Rx's Medication Instructions Recorded Doxycycline Monohydrate [Monodox] 100 mg PO Q12HR #6 cap 10/10/20 predniSONE 10 mg PO DAILY #30 tab 10/10/20 Allergies Allergy/AdvReac Type Severity Reaction Status Date / Time No Known Allergies Allergy Verified 12/11/20 20:01 Review of Systems ROS Statement: Those systems with pertinent positive or pertinent negative responses have been documented in the HPI. ROS Other: All systems not noted in ROS Statement are negative. Past Medical History Past Medical History: Chest Pain / Angina, COPD, Diabetes Mellitus, GERD/Reflux, GI Bleed, Myocardial Infarction ([place]), Skin Disorder Additional Past Medical History / Comment(s): Hx of rectal bleeding,hx rectal fissure,gout,bronchitis,uses O2 @ 2L NC at night and prn during the day. +covid 09/08 Last Myocardial Infarction Date:: 2005 History of Any Multi-Drug Resistant Organisms: None Reported Past Surgical History: Heart Catheterization With Stent Additional Past Surgical History / Comment(s): total 3 cardiac stents, surgery for cyst in rectal area, siddharth cataracts uro lift, cysts removed from testicles Past Anesthesia/Blood Transfusion Reactions: No Reported Reaction Date of Last Stent Placement:: 2005 Past Psychological History: No Psychological Hx Reported Smoking Status: Former smoker Past Alcohol Use History: Daily Past Drug Use History: None Reported - Past Family History Father Family Medical History: Cancer Mother Family Medical History: No Reported History Additional Family Medical History / Comment(s): Mother was healthy and lived to be in her 90s. General Exam Limitations: no limitations General appearance: alert, in no apparent distress Head exam: Present: atraumatic, normocephalic, normal inspection Eye exam: Present: normal appearance, PERRL, EOMI Pupils: Present: normal accommodation ENT exam: Present: normal exam, normal oropharynx, mucous membranes moist Neck exam: Present: normal inspection, full ROM. Absent: tenderness Respiratory exam: Present: wheezes (Diffuse bilateral wheezing). Absent: respiratory distress, rales, rhonchi, stridor, chest wall tenderness, accessory muscle use Cardiovascular Exam: Present: regular rate, normal rhythm, normal heart sounds GI/Abdominal exam: Present: soft. Absent: distended, tenderness, guarding, rebound Extremities exam: Present: normal inspection, full ROM, normal capillary refill. Absent: tenderness, pedal edema, joint swelling Back exam: Present: normal inspection, full ROM. Absent: tenderness Neurological exam: Present: alert, oriented X3 Psychiatric exam: Present: normal affect, normal mood Skin exam: Present: warm, dry, intact, normal color Course Vital Signs 12/11/20 19:58 Temperature 98 F Pulse Rate 100 Respiratory 18 Rate Blood Pressure 149/77 O2 Sat by Pulse 92 L Oximetry Medical Decision Making - Medical Decision Making 75-year-old male with history of oxygen-dependent COPD, 2 L nasal cannula at home presenting to the emergency department with chief complaint shortness of breath. On physical examination, patient has diffuse bilateral wheezing. Oxygen saturation 95 on 2 L nasal cannula. Patient was given 2 DuoNeb breathing treatments and 125 mg Solu-Medrol. On reevaluation, no significant improvement symptoms. He was given additional breathing treatment. Covert is pending. Chest x-ray shows bilateral infiltrates which appears to have worsened compared to his most recent chest x-ray from September. Patient was immediately started on Rocephin and azithromycin. CT chest angiogram pending. I spoke to Dr. tavares who will admit. Case discussed with Dr Hdz Pulmonary consult - Lab Data Result diagrams: 12/11/20 20:44 12/11/20 20:44 Lab Results 12/11/20 12/11/20 12/11/20 Range/Units 20:44 20:44 20:44 WBC 14.0 H (3.8-10.6) k/uL RBC 4.76 (4.30-5.90) m/uL Hgb 15.5 (13.0-17.5) gm/dL Hct 46.2 (39.0-53.0) % MCV 97.1 (80.0-100.0) fL MCH 32.5 (25.0-35.0) pg MCHC 33.5 (31.0-37.0) g/dL RDW 14.0 (11.5-15.5) % Plt Count 251 (150-450) k/uL MPV 6.4 Neutrophils % 78 % Lymphocytes % 12 % Monocytes % 4 % Eosinophils % 4 % Basophils % 0 % Neutrophils # 10.8 H (1.3-7.7) k/uL Lymphocytes # 1.7 (1.0-4.8) k/uL Monocytes # 0.5 (0-1.0) k/uL Eosinophils # 0.6 (0-0.7) k/uL Basophils # 0.1 (0-0.2) k/uL PT 10.5 (9.0-12.0) sec INR 1.0 (<1.2) APTT 24.0 (22.0-30.0) sec Sodium 134 L (137-145) mmol/L Potassium 4.5 (3.5-5.1) mmol/L Chloride 97 L (98-107) mmol/L Carbon Dioxide 25 (22-30) mmol/L Anion Gap 12 mmol/L BUN 9 (9-20) mg/dL Creatinine 0.99 (0.66-1.25) mg/dL Est GFR (CKD-EPI)AfAm 86 (>60 ml/min/1.73 sqM) Est GFR (CKD-EPI)NonAf 74 (>60 ml/min/1.73 sqM) Glucose 101 H (74-99) mg/dL Calcium 9.5 (8.4-10.2) mg/dL Total Bilirubin 0.5 (0.2-1.3) mg/dL AST 33 (17-59) U/L ALT 27 (4-49) U/L Alkaline Phosphatase 77 (38-126) U/L Troponin I (0.000-0.034) ng/mL Total Protein 6.8 (6.3-8.2) g/dL Albumin 4.3 (3.5-5.0) g/dL 12/11/20 Range/Units 20:44 WBC (3.8-10.6) k/uL RBC (4.30-5.90) m/uL Hgb (13.0-17.5) gm/dL Hct (39.0-53.0) % MCV (80.0-100.0) fL MCH (25.0-35.0) pg MCHC (31.0-37.0) g/dL RDW (11.5-15.5) % Plt Count (150-450) k/uL MPV Neutrophils % % Lymphocytes % % Monocytes % % Eosinophils % % Basophils % % Neutrophils # (1.3-7.7) k/uL Lymphocytes # (1.0-4.8) k/uL Monocytes # (0-1.0) k/uL Eosinophils # (0-0.7) k/uL Basophils # (0-0.2) k/uL PT (9.0-12.0) sec INR (<1.2) APTT (22.0-30.0) sec Sodium (137-145) mmol/L Potassium (3.5-5.1) mmol/L Chloride (98-107) mmol/L Carbon Dioxide (22-30) mmol/L Anion Gap mmol/L BUN (9-20) mg/dL Creatinine (0.66-1.25) mg/dL Est GFR (CKD-EPI)AfAm (>60 ml/min/1.73 sqM) Est GFR (CKD-EPI)NonAf (>60 ml/min/1.73 sqM) Glucose (74-99) mg/dL Calcium (8.4-10.2) mg/dL Total Bilirubin (0.2-1.3) mg/dL AST (17-59) U/L ALT (4-49) U/L Alkaline Phosphatase (38-126) U/L Troponin I <0.012 (0.000-0.034) ng/mL Total Protein (6.3-8.2) g/dL Albumin (3.5-5.0) g/dL Disposition Clinical Impression: Pneumonia, COPD exacerbation Disposition: ADMITTED IP TO THIS HOSP Condition: Fair Is patient prescribed a controlled substance at d/c from ED?: No Referrals: Deanna Kate MD [Primary Care Provider] - 1-2 days Time of Disposition: 22:07
[2020-12-11 20:55] LABS: Basophils # (A) 0.1 k/uL (0-0.2); Basophils % (A) 0 %; Eosinophils # (A) 0.6 k/uL (0-0.7); Eosinophils % (A) 4 %; HCT 46.2 % (39.0-53.0); HGB 15.5 gm/dL (13.0-17.5); Lymphocytes # (A) 1.7 k/uL (1.0-4.8); Lymphocytes % (A) 12 %; MCH 32.5 pg (25.0-35.0); MCHC 33.5 g/dL (31.0-37.0); MCV 97.1 fL (80.0-100.0); Mean Platelet Volume 6.4; Monocytes # (A) 0.5 k/uL (0-1.0); Monocytes % (A) 4 %; Neutrophils # (A) 10.8 k/uL (1.3-7.7); Neutrophils % (A) 78 %; Platelet Count 251 k/uL (150-450); RBC 4.76 m/uL (4.30-5.90)
[2020-12-11 21:05] LABS: Albumin 4.3 g/dL (3.5-5.0); Calcium 9.5 mg/dL (8.4-10.2); Potassium 4.5 mmol/L (3.5-5.1); Total Bilirubin 0.5 mg/dL (0.2-1.3); Total Protein 6.8 g/dL (6.3-8.2)
--- NOTE | 2020-12-11 21:05 | XR ---
EXAMINATION TYPE: XR chest 2V DATE OF EXAM: 12/11/2020 COMPARISON: 10/10/2020 HISTORY: Difficulty breathing. Short of breath. TECHNIQUE: FINDINGS: There is some mild patchy infiltrate in the lower lung andino. This is more on the right si de. There is right middle lobe anterior 2 x 1 cm infiltrate. There is no heart failure. Heart size is normal. IMPRESSION: There is some patchy bilateral infiltrate with a changing pattern compared to old exam an d consistent with inflammatory disease. Normal heart.
[2020-12-11 21:08] LABS: Prothrombin Time 10.5 sec (9.0-12.0)
[2020-12-11] MEDS ORDERED: cefTRIAXone IN SWFI 1,000 MG/10 ML SYRINGE IVP STA (21:16)
[2020-12-11] MEDS ORDERED: AZITHROMYCIN 500 MG in SODIUM CHLORIDE 0.9% 250 ML IVPB ONE (21:17)
[2020-12-11] MEDS ORDERED: IBUPROFEN 400 MG TAB PO PRN (22:02)
[2020-12-11] MEDS ORDERED: ACETAMINOPHEN TAB 325 MG TAB PO PRN (22:02)
[2020-12-11] MEDS ORDERED: NALOXONE 0.4 MG/ML 1 ML VIAL IV PRN (22:02)
[2020-12-11] MEDS ORDERED: IPRATROPIUM-ALBUTEROL 3 ML NEB INHALATION PRN (22:04)
[2020-12-11] MEDS ORDERED: SODIUM CHLORIDE 0.9% 1,000 ML IV SCH (22:15)
--- NOTE | 2020-12-11 22:20 | CT ---
EXAMINATION TYPE: CT chest angio for PE DATE OF EXAM: 12/11/2020 COMPARISON: Chest CT scan 02/23/2020 HISTORY: Shortness of breath on exertion. CT DLP: 852.3 mGycm Automated exposure control for dose reduction was used. CONTRAST: Performed with IV Contrast, patient injected with 100 mL of Isovue 370. Images were obtained from the thoracic inlet to the diaphragm with IV contrast. There are 3-D post pr ocessed images. There is pulmonary emphysema. There is some patchy nodular stellate infiltrate in the anterior right upper lobe. There is also some linear infiltrate and atelectasis right posterior lung base. There is no pleural effusion. Heart size is normal. There is no pericardial effusion. Thoracic aorta is intact. There is no aneurysm or dissection. There is no evidence of filling defect in the pulmonary arteries. Bony thorax is intact. IMPRESSION: No evidence of pulmonary embolism. Pulmonary emphysema. There is increasing infiltrate in the right lung compared to old exam. This is l ikely inflammatory.
[2020-12-12] MEDS: ALBUTEROL HFA INHALER INHALATION PRN ×2 (01:07→03:44)
[2020-12-12] MEDS ORDERED: IPRATROPIUM-ALBUTEROL 3 ML NEB INHALATION PRN (08:14)
--- NOTE | 2020-12-12 08:54 | P.HPIM ---
History of Present Illness Patient is an 75-year-old male with known history of COPD quit smoking in 2017 came in with compensative shortness of breath patient usually uses 2 L of oxygen patient had a CT angios the chest did not show any pulmonary embolism but there is some atelectatic changes patient denied any fever chills patient was comparing of cough with clear sputum production does have leukocytosis no evidence of pneumonia because of which are not continue antibiotics except for azithromycin for possible bronchitis. Patient does have leukocytosis of 14,000. Patient has been hyponatremic secondary to oral Lasix is receiving patient received IV fluids last night IV fluids will be discontinued will not continue his home dose of Lasix. Patient blood pressures were bit low because of which I'll cut down the dose of lisinopril as well. Patient wheezing is not bad because of which a CT angios the chest was obtained to rule out any pulmonary embolism. Patient feels bit better today REVIEW OF SYSTEMS: CONSTITUTIONAL: No fever, no malaise, no fatigue. HEENT: No recent visual problems or hearing problems. Denied any sore throat. CARDIOVASCULAR: No chest pain, orthopnea, PND, no palpitations, no syncope. PULMONARY: As mentioned in the interval history. GASTROINTESTINAL: No diarrhea, no nausea, no vomiting, no abdominal pain. NEUROLOGICAL: No headaches, no weakness, no numbness. HEMATOLOGICAL: Denies any bleeding or petechiae. GENITOURINARY: Denies any burning micturition, frequency, or urgency. MUSCULOSKELETAL/RHEUMATOLOGICAL: Denies any joint pain, swelling, or any muscle pain. ENDOCRINE: Denies any polyuria or polydipsia. The rest of the 14-point review of systems is negative. PHYSICAL EXAMINATION: GENERAL: The patient is alert and oriented x3, not in any acute distress. Well developed, well nourished. HEENT: Pupils are round and equally reacting to light. EOMI. No scleral icterus. No conjunctival pallor. Normocephalic, atraumatic. No pharyngeal erythema. No thyromegaly. CARDIOVASCULAR: S1 and S2 present. No murmurs, rubs, or gallops. PULMONARY:. Mildly decreased air entry mild expiratory wheezing ABDOMEN: Soft, nontender, nondistended, normoactive bowel sounds. No palpable organomegaly. MUSCULOSKELETAL: No joint swelling or deformity. EXTREMITIES: No cyanosis, clubbing, or pedal edema. NEUROLOGICAL: Gross neurological examination did not reveal any focal deficits. SKIN: No rashes. Assessment and plan -Acute on chronic hypercapnic respiratory failure secondary to COPD exacerbation. Patient will be started on systemic steroids continue with inhalational treatments. No evidence of pneumonia at this time continue the azithromycin no need for Rocephin. Unfortunately I'm unable to view the images of CT angios the chest. If he improves tomorrow possibility can be discharged tomorrow on the prednisone -Hyponatremia secondary to Lasix which will be held repeat basic metabolic pr ofile tomorrow -Hypertension bit hypotensive on admission will cut down the dose of lisinopril -Coronary artery disease with stents in the past -Hyperlipidemia -Benign prostatic hypertrophy DVT prophylaxis: Lovenox Past Medical History Past Medical History: Chest Pain / Angina, COPD, Diabetes Mellitus, GERD/Reflux, GI Bleed, Myocardial Infarction ([place]), Skin Disorder Additional Past Medical History / Comment(s): Hx of rectal bleeding,hx rectal fissure,gout,bronchitis,uses O2 @ 2L NC at night and prn during the day. +covid 09/08 Last Myocardial Infarction Date:: approx 2005 History of Any Multi-Drug Resistant Organisms: None Reported Past Surgical History: Heart Catheterization With Stent Additional Past Surgical History / Comment(s): total 3 cardiac stents, surgery for cyst in rectal area, siddharth cataracts uro lift, cysts removed from testicles Past Anesthesia/Blood Transfusion Reactions: No Reported Reaction Date of Last Stent Placement:: 2005 Past Psychological History: No Psychological Hx Reported Smoking Status: Former smoker Past Alcohol Use History: Daily Past Drug Use History: None Reported - Past Family History Father Family Medical History: Cancer Mother Family Medical History: No Reported History Additional Family Medical History / Comment(s): Mother was healthy and lived to be in her 90s. Medications and Allergies Home Medications Medication Instructions Recorded Confirmed Type Allopurinol [Zyloprim] 100 mg PO DAILY 03/02/16 12/12/20 History Mometasone/Formoterol [Dulera 100 2 puff INHALATION RT-BID 03/02/16 12/12/20 History Mcg-5 Mcg Inhaler] Metoprolol Succinate [Toprol Xl] 50 mg PO DAILY 12/29/17 12/12/20 History Tamsulosin HCl [Flomax] 0.4 mg PO W/SUPPER 12/29/17 12/12/20 History Ipratropium-Albuterol Nebulize 3 ml INHALATION RT-Q4H 02/27/19 12/12/20 History [Duoneb 0.5 mg-3 mg/3 ml Soln] Lisinopril [Zestril] 10 mg PO DAILY 02/27/19 12/12/20 History Rosuvastatin [Crestor] 20 mg PO W/SUPPER 02/27/19 12/12/20 History Pantoprazole [Protonix] 40 mg PO DAILY 03/03/19 12/12/20 History Loratadine 10 mg PO DAILY 08/16/20 12/12/20 History Montelukast Sodium [Singulair] 10 mg PO HS 08/16/20 12/12/20 History Aspirin EC [Ecotrin Low Dose] 81 mg PO DAILY 10/10/20 12/12/20 History Ergocalciferol [Vitamin D2 (1250 1,250 mcg PO Q14D 10/10/20 12/12/20 History Mcg = 92538 Iu)] Furosemide [Lasix] 20 mg PO DAILY PRN 12/12/20 12/12/20 History Allergies Allergy/AdvReac Type Severity Reaction Status Date / Time No Known Allergies Allergy Verified 12/11/20 20:01 Physical Exam Vitals: Vital Signs Temp Pulse Resp BP BP Pulse Ox 12/12/20 07:57 98.4 F 18 139/82 93 L 12/12/20 03:53 78 18 111/58 97 12/12/20 01:00 98 22 111/72 97 12/11/20 23:55 98.0 F 90 22 110/77 98 12/11/20 23:00 98 30 H 134/78 98 12/11/20 22:24 109 H 12/11/20 22:05 103 H 12/11/20 19:58 98 F 100 18 149/77 92 L Intake and Output 12/11/20 12/12/20 12/12/20 22:59 06:59 14:59 Other: Weight 113.398 kg Results CBC & Chem 7: 12/11/20 20:44 12/11/20 20:44 Labs: Abnormal Lab Results - Last 24 Hours (Table) 12/11/20 12/11/20 Range/Units 20:44 20:44 WBC 14.0 H (3.8-10.6) k/uL Neutrophils # 10.8 H (1.3-7.7) k/uL Sodium 134 L (137-145) mmol/L Chloride 97 L (98-107) mmol/L Glucose 101 H (74-99) mg/dL
[2020-12-12] MEDS ORDERED: FAMOTIDINE 20 MG TAB PO SCH (09:00)
[2020-12-12] MEDS: ASPIRIN 81 MG PO SCH (09:19)
[2020-12-12] MEDS: AZITHROMYCIN 500 MG TAB PO SCH (09:19)
[2020-12-12] MEDS: METOPROLOL SUCCINATE (ER) 50 MG TAB.ER.24H PO SCH (09:19)
[2020-12-12] MEDS: methylPREDNISolone SOD SUCCI 40 MG/ML 1 ML VIAL IV SCH ×2 (09:19→20:32)
[2020-12-12] MEDS: ENOXAPARIN 40 MG/0.4 ML SYRINGE SQ SCH (09:19)
[2020-12-12] MEDS: lisinopriL 5 MG TAB PO SCH (09:19)
[2020-12-12] MEDS: allopurinoL 100 MG TAB PO SCH (09:19)
[2020-12-12] MEDS: LORATADINE 10 MG TAB PO SCH (09:19)
[2020-12-12] MEDS: PANTOPRAZOLE 40 MG TABLET PO SCH (09:25)
[2020-12-12 11:36] LABS: Glucose,Whole Blood 206 mg/dL (75-99)
[2020-12-12] MEDS ORDERED: IPRATROPIUM-ALBUTEROL 3 ML NEB INHALATION SCH (12:00)
[2020-12-12] MEDS: INSULIN ASPART (NovoLOG) 100 UNIT/ML VIAL SQ SCH ×3 (12:40→20:32)
[2020-12-12] MEDS: IPRATROPIUM-ALBUTEROL 3 ML NEB INHALATION SCH ×3 (12:51→19:09)
[2020-12-12 16:36] LABS: Glucose,Whole Blood 227 mg/dL (75-99)
[2020-12-12] MEDS: TAMSULOSIN 0.4 MG CAP.ER.24H PO SCH (17:09)
[2020-12-12] MEDS: ATORVASTATIN 40 MG TAB PO SCH (17:09)
[2020-12-12] MEDS: SYMBICORT 80-4.5 MCG INHALER INHALATION SCH (19:09)
[2020-12-12 20:26] LABS: Glucose,Whole Blood 176 mg/dL (75-99)
[2020-12-12] MEDS: MONTELUKAST 10 MG TAB PO SCH (20:34)
[2020-12-13] MEDS: IPRATROPIUM-ALBUTEROL 3 ML NEB INHALATION SCH ×6 (02:51→20:52)
[2020-12-13 06:56] LABS: Glucose,Whole Blood 188 mg/dL (75-99)
[2020-12-13] MEDS: SYMBICORT 80-4.5 MCG INHALER INHALATION SCH ×2 (07:20→20:52)
[2020-12-13] MEDS: METOPROLOL SUCCINATE (ER) 50 MG TAB.ER.24H PO SCH (07:30)
[2020-12-13] MEDS: ASPIRIN 81 MG PO SCH (07:30)
[2020-12-13] MEDS: lisinopriL 5 MG TAB PO SCH (07:30)
[2020-12-13] MEDS: LORATADINE 10 MG TAB PO SCH (07:30)
[2020-12-13] MEDS: AZITHROMYCIN 500 MG TAB PO SCH (07:31)
[2020-12-13] MEDS: PANTOPRAZOLE 40 MG TABLET PO SCH (07:31)
[2020-12-13] MEDS: allopurinoL 100 MG TAB PO SCH (07:31)
[2020-12-13] MEDS: ENOXAPARIN 40 MG/0.4 ML SYRINGE SQ SCH (07:31)
[2020-12-13] MEDS: methylPREDNISolone SOD SUCCI 40 MG/ML 1 ML VIAL IV SCH ×3 (07:32→23:46)
[2020-12-13] MEDS: INSULIN ASPART (NovoLOG) 100 UNIT/ML VIAL SQ SCH ×4 (07:32→21:41)
[2020-12-13] MEDS ORDERED: ERGOCALCIFEROL 1,250 MCG (50,000 IU) CAPSULE PO SCH (09:00)
[2020-12-13 11:38] LABS: Glucose,Whole Blood 205 mg/dL (75-99)
[2020-12-13] MEDS: PSYLLIUM HUSK 100% 6 GM PACKET PO SCH (12:29)
[2020-12-13] MEDS ORDERED: PSYLLIUM HUSK 100% 6 GM PACKET PO ONE (12:30)
--- NOTE | 2020-12-13 14:17 | P.CNPUL ---
History of Present Illness Consult date: 12/13/20 Reason for consult: dyspnea, cough Chief complaint: Shortness of breath and cough History of present illness: This is a pleasant 75-year-old male was seen evaluated examined patient admitted to hospital with progressive cough worsening along with shortness of breath and thick sputum production, patient has a long-standing history of COPD which is oxygen dependent and nebulizer dependent she uses 4 L oxygen at home with long- standing history of the smoking in the past quit about 4 years ago, his symptoms started for the last 5 days to 7 days and developed progressive decided to come into the hospital for further evaluation, patient sees Yojana Ortega nurse practitioner for Dr. HUSSAIN melendez on a regular basis for pulmonary issues, admitted chest x-ray significant for right upper lobe and right-sided infiltrate, c omputed tomography scan confirmed now finding which have a more of a nodular appearance on CAT scan with infiltrative pattern, patient has been on broad- spectrum antibiotics breathing treatments steroids, post discharge patient will follow-up with Dr. 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 +covid 09/08 Last Myocardial Infarction Date:: approx 2005 History of Any Multi-Drug Resistant Organisms: None Reported Past Surgical History: Heart Catheterization With Stent Additional Past Surgical History / Comment(s): total 3 cardiac stents, surgery for cyst in rectal area, siddharth cataracts uro lift, cysts removed from testicles Past Anesthesia/Blood Transfusion Reactions: No Reported Reaction Date of Last Stent Placement:: 2005 Past Psychological History: No Psychological Hx Reported Additional Psychological History / Comment(s): . Smoking Status: Former smoker Past Alcohol Use History: Daily Additional Past Alcohol Use History / Comment(s): Pt started smoking in 1956 and quit in 2016. Past Drug Use History: None Reported - Past Family History Father Family Medical History: Cancer Mother Family Medical History: No Reported History Additional Family Medical History / Comment(s): Mother was healthy and lived to be in her 90s. Medications and Allergies Home Medications Medication Instructions Recorded Confirmed Type Allopurinol [Zyloprim] 100 mg PO DAILY 03/02/16 12/12/20 History Mometasone/Formoterol [Dulera 100 2 puff INHALATION RT-BID 03/02/16 12/12/20 History Mcg-5 Mcg Inhaler] Metoprolol Succinate [Toprol Xl] 50 mg PO DAILY 12/29/17 12/12/20 History Tamsulosin HCl [Flomax] 0.4 mg PO W/SUPPER 12/29/17 12/12/20 History Ipratropium-Albuterol Nebulize 3 ml INHALATION RT-Q4H 02/27/19 12/12/20 History [Duoneb 0.5 mg-3 mg/3 ml Soln] Lisinopril [Zestril] 10 mg PO DAILY 02/27/19 12/12/20 History Rosuvastatin [Crestor] 20 mg PO W/SUPPER 02/27/19 12/12/20 History Pantoprazole [Protonix] 40 mg PO DAILY 03/03/19 12/12/20 History Loratadine 10 mg PO DAILY 08/16/20 12/12/20 History Montelukast Sodium [Singulair] 10 mg PO HS 08/16/20 12/12/20 History Aspirin EC [Ecotrin Low Dose] 81 mg PO DAILY 10/10/20 12/12/20 History Ergocalciferol [Vitamin D2 (1250 1,250 mcg PO Q14D 10/10/20 12/12/20 History Mcg = 90130 Iu)] Furosemide [Lasix] 20 mg PO DAILY PRN 12/12/20 12/12/20 History Allergies Allergy/AdvReac Type Severity Reaction Status Date / Time No Known Allergies Allergy Verified 12/11/20 20:01 Physical Exam Vitals: Vital Signs Temp Pulse Pulse Resp BP Pulse Ox 12/13/20 13:32 98.2 F 76 20 132/74 95 12/13/20 11:33 76 12/13/20 11:23 76 12/13/20 09:43 95 12/13/20 08:00 97.6 F 76 19 129/74 96 12/13/20 07:31 73 12/13/20 07:20 72 12/13/20 07:00 19 12/13/20 03:02 80 12/13/20 02:52 80 12/13/20 01:50 97.8 F 96 17 124/75 99 12/12/20 19:21 83 12/12/20 19:10 80 12/12/20 19:05 98.6 F 84 18 129/72 97 12/12/20 15:19 82 12/12/20 15:09 78 Intake and Output 12/12/20 12/13/20 12/13/20 22:59 06:59 14:59 Other: Voiding Method Toilet # Voids 1 4 - Constitutional General appearance: disheveled, morbidly obese - EENT Eyes: PERRLA Ears: bilateral: normal - Neck Neck: normal ROM Carotids: bilateral: upstroke normal Thyroid: bilateral: normal size - Respiratory Respiratory: bilateral: diminished, wheezing - Cardiovascular Rhythm: regular Heart sounds: normal: S1, S2 - Gastrointestinal General gastrointestinal: distended, soft - Integumentary Integumentary: normal turgor - Neurologic Neurologic: CNII-XII intact - Musculoskeletal Musculoskeletal: gait normal, generalized weakness, strength equal bilaterally - Psychiatric Psychiatric: A&O x's 3, appropriate affect, intact judgment & insight Results - Laboratory Findings CBC and BMP: 12/11/20 20:44 12/11/20 20:44 PT/INR, D-dimer PT 10.5 sec (9.0-12.0) 12/11/20 20:44 INR 1.0 (<1.2) 12/11/20 20:44 Abnormal lab findings: Abnormal Labs 12/11/20 12/11/20 12/12/20 20:44 20:44 11:30 WBC 14.0 H Neutrophils # 10.8 H Sodium 134 L Chloride 97 L Glucose 101 H POC Glucose (mg/dL) 206 H 12/12/20 12/12/20 12/13/20 16:33 20:24 06:54 WBC Neutrophils # Sodium Chloride Glucose POC Glucose (mg/dL) 227 H 176 H 188 H 12/13/20 11:37 WBC Neutrophils # Sodium Chloride Glucose POC Glucose (mg/dL) 205 H - Diagnostic Findings Chest x-ray: report reviewed, image reviewed (Finding as noted above) Assessment and Plan Assessment: Right upper lobe pneumonia and middle lobe pneumonia Acute exacerbation of COPD Purulent tracheobronchitis Acute on chronic hypoxic history failure Hypertension hypertensive cardiovascular disease Coronary artery disease with history of stent placement Benign prostatic hypertrophy Morbid obesity Plan: Continue bronchodilators IV steroids and broad-spectrum antibiotics, patient will need a follow-up chest x-ray as outpatient to document resolution of pneumonia continue current plan of care will monitor observe clinical course closely Time with Patient: Greater than 30
[2020-12-13] MEDS: TAMSULOSIN 0.4 MG CAP.ER.24H PO SCH (16:12)
[2020-12-13] MEDS: ATORVASTATIN 40 MG TAB PO SCH (16:12)
[2020-12-13 16:36] LABS: Glucose,Whole Blood 233 mg/dL (75-99)
[2020-12-13 20:46] LABS: Glucose,Whole Blood 270 mg/dL (75-99)
[2020-12-13] MEDS: MONTELUKAST 10 MG TAB PO SCH (21:41)
[2020-12-14] MEDS: IPRATROPIUM-ALBUTEROL 3 ML NEB INHALATION SCH ×6 (00:04→20:04)
[2020-12-14 06:37] LABS: Glucose,Whole Blood 183 mg/dL (75-99)
[2020-12-14] MEDS: INSULIN ASPART (NovoLOG) 100 UNIT/ML VIAL SQ SCH ×4 (07:20→21:32)
[2020-12-14] MEDS: PANTOPRAZOLE 40 MG TABLET PO SCH (07:20)
[2020-12-14] MEDS: SYMBICORT 80-4.5 MCG INHALER INHALATION SCH ×2 (08:21→20:04)
--- NOTE | 2020-12-14 08:21 | P.PN ---
Subjective Progress Note Date: 12/14/20 Principal diagnosis: Right upper lobe pneumonia and middle lobe pneumonia Acute exacerbation of COPD Purulent tracheobronchitis Acute on chronic hypoxic history failure Hypertension hypertensive cardiovascular disease Coronary artery disease with history of stent placement Benign prostatic hypertrophy Morbid obesity 12/14/2020, patient seen eval examined during the rounds patient is sitting upright so using supplemental oxygen breathing stable, remains on broad-spectrum antibiotics breathing treatments IV steroids, patient updated about x-ray and CAT scan finding, recommended to continue antibiotics now patient will need follow-up chest x-ray after 6-8 weeks to document resolution to be performed by primary data visualization developer This is a pleasant 75-year-old male was seen evaluated examined patient admitted to hospital with progressive cough worsening along with shortness of breath and thick sputum production, patient has a long-standing history of COPD which is o xygen dependent and nebulizer dependent she uses 4 L oxygen at home with long- standing history of the smoking in the past quit about 4 years ago, his symptoms started for the last 5 days to 7 days and developed progressive decided to come into the hospital for further evaluation, patient sees Yojana Ortega nurse practitioner for Dr. HUSSAIN melendez on a regular basis for pulmonary issues, admitted chest x-ray significant for right upper lobe and right-sided infiltrate, computed tomography scan confirmed now finding which have a more of a nodular appearance on CAT scan with infiltrative pattern, patient has been on broad- spectrum antibiotics breathing treatments steroids, post discharge patient will follow-up with Dr. HUSSAIN melendez his primary data visualization developer Objective - Vital Signs Vital signs: Vital Signs Temp 98.0 F 12/14/20 07:15 Pulse 80 12/14/20 07:15 Resp 16 12/14/20 07:15 BP 136/74 12/14/20 07:15 Pulse Ox 97 12/14/20 07:15 Intake & Output 12/13/20 12/14/20 12/14/20 18:59 06:59 18:59 Output Total 1 Balance -1 Output: Urine 1 Other: Voiding Method Toilet # Voids 3 - Exam - Constitutional General appearance: disheveled, morbidly obese - EENT Eyes: PERRLA Ears: bilateral: normal - Neck Neck: normal ROM Carotids: bilateral: upstroke normal Thyroid: bilateral: normal size - Respiratory Respiratory: bilateral: diminished, wheezing - Cardiovascular Rhythm: regular Heart sounds: normal: S1, S2 - Gastrointestinal General gastrointestinal: distended, soft - Integumentary Integumentary: normal turgor - Neurologic Neurologic: CNII-XII intact - Musculoskeletal Musculoskeletal: gait normal, generalized weakness, strength equal bilaterally - Psychiatric Psychiatric: A&O x's 3, appropriate affect, intact judgment & insight - Labs CBC & Chem 7: 12/11/20 20:44 12/11/20 20:44 Labs: Abnormal Lab Results - Last 24 Hours (Table) 12/13/20 12/13/20 12/13/20 Range/Units 11:37 16:35 20:45 POC Glucose (mg/dL) 205 H 233 H 270 H (75-99) mg/dL 12/14/20 Range/Units 06:36 POC Glucose (mg/dL) 183 H (75-99) mg/dL Assessment and Plan Assessment: Right upper lobe pneumonia and middle lobe pneumonia Acute exacerbation of COPD Purulent tracheobronchitis Acute on chronic hypoxic history failure Hypertension hypertensive cardiovascular disease Coronary artery disease with history of stent placement Benign prostatic hypertrophy Morbid obesity Plan: Continue bronchodilators IV steroids and broad-spectrum antibiotics, patient will need a follow-up chest x-ray as outpatient to document resolution of pneumonia continue current plan of care will monitor observe clinical course closely Time with Patient: Greater than 30
[2020-12-14] MEDS: methylPREDNISolone SOD SUCCI 40 MG/ML 1 ML VIAL IV SCH ×2 (08:45→16:27)
[2020-12-14] MEDS: allopurinoL 100 MG TAB PO SCH (10:40)
[2020-12-14] MEDS: ASPIRIN 81 MG PO SCH (10:40)
[2020-12-14] MEDS: AZITHROMYCIN 500 MG TAB PO SCH (10:41)
[2020-12-14] MEDS: lisinopriL 5 MG TAB PO SCH (10:41)
[2020-12-14] MEDS: ENOXAPARIN 40 MG/0.4 ML SYRINGE SQ SCH (10:41)
[2020-12-14] MEDS: PSYLLIUM HUSK 100% 6 GM PACKET PO SCH (10:42)
[2020-12-14] MEDS: METOPROLOL SUCCINATE (ER) 50 MG TAB.ER.24H PO SCH (10:42)
[2020-12-14] MEDS: LORATADINE 10 MG TAB PO SCH (10:42)
[2020-12-14 10:53] LABS: Glucose,Whole Blood 202 mg/dL (75-99)
[2020-12-14] MEDS: ATORVASTATIN 40 MG TAB PO SCH (16:27)
[2020-12-14] MEDS: TAMSULOSIN 0.4 MG CAP.ER.24H PO SCH (16:28)
[2020-12-14 16:37] LABS: Glucose,Whole Blood 262 mg/dL (75-99)
[2020-12-14 20:37] LABS: Glucose,Whole Blood 183 mg/dL (75-99)
[2020-12-14] MEDS: MONTELUKAST 10 MG TAB PO SCH (21:31)
[2020-12-15] MEDS: IPRATROPIUM-ALBUTEROL 3 ML NEB INHALATION SCH ×3 (06:17→12:25)
[2020-12-15 06:23] VITALS: TEMP 97.6
[2020-12-15 06:49] LABS: Glucose,Whole Blood 222 mg/dL (75-99)
[2020-12-15] MEDS: methylPREDNISolone SOD SUCCI 40 MG/ML 1 ML VIAL IV SCH ×2 (07:11→09:32)
[2020-12-15] MEDS: INSULIN ASPART (NovoLOG) 100 UNIT/ML VIAL SQ SCH ×2 (07:47→12:26)
[2020-12-15] MEDS: PANTOPRAZOLE 40 MG TABLET PO SCH (07:47)
[2020-12-15 07:48] VITALS: BP 156/92; RESP 22
[2020-12-15] MEDS: SYMBICORT 80-4.5 MCG INHALER INHALATION SCH (08:49)
[2020-12-15 09:04] VITALS: PULSE 86
[2020-12-15] MEDS: allopurinoL 100 MG TAB PO SCH (09:35)
[2020-12-15] MEDS: AZITHROMYCIN 500 MG TAB PO SCH (09:35)
[2020-12-15] MEDS: ASPIRIN 81 MG PO SCH (09:35)
[2020-12-15] MEDS: LORATADINE 10 MG TAB PO SCH (09:36)
[2020-12-15] MEDS: METOPROLOL SUCCINATE (ER) 50 MG TAB.ER.24H PO SCH (09:36)
[2020-12-15] MEDS: ENOXAPARIN 40 MG/0.4 ML SYRINGE SQ SCH (09:36)
[2020-12-15] MEDS: lisinopriL 5 MG TAB PO SCH (09:36)
[2020-12-15] MEDS: PSYLLIUM HUSK 100% 6 GM PACKET PO SCH (09:37)
[2020-12-15 11:34] LABS: Glucose,Whole Blood 255 mg/dL (75-99)
[2020-12-15] MEDS ORDERED: IPRATROPIUM-ALBUTEROL 3 ML NEB ONE (23:59)
[2020-12-15] MEDS ORDERED: methylPREDNISolone SOD SUCCI 40 MG/ML 1 ML VIAL ONE (23:59)
--- NOTE | 2021-01-02 22:43 | P.PN ---
Subjective Progress Note Date: 12/13/20 Principal diagnosis: Acute on chronic hypercapnic respiratory failure secondary to COPD exacerbation. Patient is an 75-year-old male with known history of COPD quit smoking in 2017 came in with compensative shortness of breath patient usually uses 2 L of oxygen patient had a CT angios the chest did not show any pulmonary embolism but there is some atelectatic changes patient denied any fever chills patient was comparing of cough with clear sputum production does have leukocytosis no evidence of pneumonia because of which are not continue antibiotics except for azithromycin for possible bronchitis. Patient does have leukocytosis of 14,000. Patient has been hyponatremic secondary to oral Lasix is receiving patient received IV fluids last night IV fluids will be discontinued will not continue his home dose of Lasix. Patient blood pressures were bit low because of which I'll cut down the dose of lisinopril as well. . 12/13/2020 Patient is currently lying in the bed. Awake alert oriented x3. Still having shortness of breath with diffuse expiratory wheezing and exertional dyspnea. Steroid dose will be increased to methylprednisolone every 8 hourly 40 mg. Continue with the DuoNebs and oxygen supplementation. Denied any complaints of chest pain or shortness breath. No fever no chills. No cough or sputum production. Patient has been afebrile. Pulmonary is on board. Current medications reviewed. Objective - Vital Signs Vital signs: Vital Signs Temp 98.2 F 12/13/20 13:32 Pulse 78 12/13/20 16:01 Resp 20 12/13/20 13:32 BP 132/74 12/13/20 13:32 Pulse Ox 95 12/13/20 13:32 Intake & Output 12/12/20 12/13/20 12/13/20 18:59 06:59 18:59 Weight 113.398 kg Other: Voiding Method Toilet Toilet # Voids 1 4 3 - Exam PHYSICAL EXAMINATION: Patient is lying in the bed comfortably, no acute distress, awake alert and oriented.. HEENT: Normocephalic. Neck is supple. Pupils reactive. Nostrils clear. Oral cavity is moist. Neck reveals no JVD, carotid bruits, or thyromegaly. CHEST EXAMINATION: Trachea is central. Symmetrical expansion. Mildly decreased air entry . bilateral diffuse wheezing . CARDIAC: Normal S1, S2 with no gallops. No murmurs ABDOMEN: Soft. Bowel sounds normal. No organomegaly. No abdominal bruits. Extremities: reveal no edema. No clubbing or cyanosis Neurologically awake, alert, oriented x3 with well-coordinated movements. No focal deficits noted Skin: No rash or skin lesions. Psychiatric: Coperative. Nonsuicidal Musculoskeletal: No joint swelling or deformity. Normal range of motion. - Labs CBC & Chem 7: 12/11/20 20:44 12/11/20 20:44 Labs: Abnormal Lab Results - Last 24 Hours (Table) 12/12/20 12/13/20 12/13/20 Range/Units 20:24 06:54 11:37 POC Glucose (mg/dL) 176 H 188 H 205 H (75-99) mg/dL 12/13/20 Range/Units 16:35 POC Glucose (mg/dL) 233 H (75-99) mg/dL Assessment and Plan Assessment: -Acute on chronic hypercapnic respiratory failure secondary to COPD exacerbation. Patient was started on systemic steroids continue with inhalational treatments. No evidence of pneumonia at this time continue the azithromycin. -mild Hyponatremia secondary to Lasix which will be held -Hypertension. on admission will cut down the dose of lisinopril -Coronary artery disease with stents in the past -Hyperlipidemia -Benign prostatic hypertrophy DVT prophylaxis: Lovenox Time with Patient: Greater than 30
--- NOTE | 2021-01-02 22:45 | P.PN ---
Subjective Progress Note Date: 12/14/20 Principal diagnosis: Acute on chronic hypercapnic respiratory failure secondary to COPD exacerbation. Patient is an 75-year-old male with known history of COPD quit smoking in 2017 came in with compensative shortness of breath patient usually uses 2 L of oxygen patient had a CT angios the chest did not show any pulmonary embolism but there is some atelectatic changes patient denied any fever chills patient was comparing of cough with clear sputum production does have leukocytosis no evidence of pneumonia because of which are not continue antibiotics except for azithromycin for possible bronchitis. Patient does have leukocytosis of 14,000. Patient has been hyponatremic secondary to oral Lasix is receiving patient received IV fluids last night IV fluids will be discontinued will not continue his home dose of Lasix. Patient blood pressures were bit low because of which I'll cut down the dose of lisinopril as well. . 12/13/2020 Patient is currently lying in the bed. Awake alert oriented x3. Still having shortness of breath with diffuse expiratory wheezing and exertional dyspnea. Steroid dose will be increased to methylprednisolone every 8 hourly 40 mg. Continue with the DuoNebs and oxygen supplementation. Denied any complaints of chest pain or shortness breath. No fever no chills. No cough or sputum production. Patient has been afebrile. Pulmonary is on board. 12/14/2020 Patient's breathing status is better today. No complaints of chest pain. Mild expiratory wheezing present. Bilateral air entry improved. Patient has been current IV steroids and antibiotics. CT angiogram showed no evidence of PE. Pulmonary emphysema. Patient denied any complaints of chest pain. No nausea vomiting or abdominal pain or diarrhea. Patient has been afebrile. No other acute overnight issues. Current medications reviewed. Objective - Vital Signs Vital signs: Vital Signs Temp 98.2 F 12/14/20 13:39 Pulse 79 12/14/20 20:16 Resp 20 12/14/20 13:39 BP 133/61 12/14/20 13:39 Pulse Ox 99 12/14/20 20:04 Intake & Output 12/14/20 12/14/20 12/15/20 06:59 18:59 06:59 Output Total 1 Balance -1 Output: Urine 1 Other: Voiding Method Toilet # Voids 3 # Bowel Movements 0 - Exam PHYSICAL EXAMINATION: Patient is lying in the bed comfortably, no acute distress, awake alert and oriented.. HEENT: Normocephalic. Neck is supple. Pupils reactive. Nostrils clear. Oral cav ity is moist. Neck reveals no JVD, carotid bruits, or thyromegaly. CHEST EXAMINATION: Trachea is central. Symmetrical expansion. Mild wheezing . CARDIAC: Normal S1, S2 with no gallops. No murmurs ABDOMEN: Soft. Bowel sounds normal. No organomegaly. No abdominal bruits. Extremities: reveal no edema. No clubbing or cyanosis Neurologically awake, alert, oriented x3 with well-coordinated movements. No focal deficits noted Skin: No rash or skin lesions. Psychiatric: Coperative. Nonsuicidal Musculoskeletal: No joint swelling or deformity. Normal range of motion. - Labs CBC & Chem 7: 12/11/20 20:44 12/11/20 20:44 Labs: Abnormal Lab Results - Last 24 Hours (Table) 12/14/20 12/14/20 12/14/20 Range/Units 06:36 10:52 16:36 POC Glucose (mg/dL) 183 H 202 H 262 H (75-99) mg/dL 12/14/20 Range/Units 20:35 POC Glucose (mg/dL) 183 H (75-99) mg/dL Assessment and Plan Assessment: -Acute on chronic hypercapnic respiratory failure secondary to COPD exacerbation. Patient was started on systemic steroids continue with inhalational treatments. No evidence of pneumonia at this time continue the azithromycin. -mild Hyponatremia secondary to Lasix which will be held -Hypertension. on admission will cut down the dose of lisinopril -Coronary artery disease with stents in the past -Hyperlipidemia -Benign prostatic hypertrophy DVT prophylaxis: Lovenox
--- NOTE | 2021-01-02 22:47 | P.DS ---
Providers Date of admission: 12/11/20 22:09 Expected date of discharge: 12/15/20 Attending physician: Marshall Ann Consults: 12/11/20 22:03 Consult Physician Routine Consulting Provider: Terry Perea Consult Reason/Comments: COPD exacerbation, pneumonia Do you want consulting provider notified?: Yes Primary care physician: [facility] Course: Discharge diagnosis -Acute on chronic hypercapnic respiratory failure secondary to COPD exacerbation. Patient was started on systemic steroids continue with inhalational treatments. No evidence of pneumonia at this time continue the azithromycin. -mild Hyponatremia secondary to Lasix which will be held -Hypertension. on admission will cut down the dose of lisinopril -Coronary artery disease with stents in the past -Hyperlipidemia -Benign prostatic hypertrophy Hospital course Patient is an 75-year-old male with known history of COPD quit smoking in 2017 came in with compensative shortness of breath patient usually uses 2 L of oxygen patient had a CT angios the chest did not show any pulmonary embolism but there is some atelectatic changes patient denied any fever chills patient was comparing of cough with clear sputum production does have leukocytosis no evidence of pneumonia because of which are not continue antibiotics except for azithromycin for possible bronchitis. Patient does have leukocytosis of 14,000. Patient has been hyponatremic secondary to oral Lasix is receiving patient received IV fluids last night IV fluids will be discontinued will not continue his home dose of Lasix. Patient blood pressures were bit low because of which I'll cut down the dose of lisinopril as well. . 12/13/2020 Patient is currently lying in the bed. Awake alert oriented x3. Still having shortness of breath with diffuse expiratory wheezing and exertional dyspnea. Steroid dose will be increased to methylprednisolone every 8 hourly 40 mg. Continue with the DuoNebs and oxygen supplementation. Denied any complaints of chest pain or shortness breath. No fever no chills. No cough or sputum production. Patient has been afebrile. Pulmonary is on board. 12/14/2020 Patient's breathing status is better today. No complaints of chest pain. Mild expiratory wheezing present. Bilateral air entry improved. Patient has been current IV steroids and antibiotics. CT angiogram showed no evidence of PE. Pulmonary emphysema. Patient denied any complaints of chest pain. No nausea vomiting or abdominal pain or diarrhea. Patient has been afebrile. No other acute overnight issues. 12/15/2020 Patient is currently resting in the bed comfortably. No nausea vomiting or abdominal pain or diarrhea. IV steroid was to be changed to prednisone tapering course. Continue with antibiotic course with azithromycin. Patient will be continued on oxygen supplementation as per home regimen. Otherwise patient was recommended to follow-up with pulmonary in 6 to 8 weeks for repeat imaging for resolution of chest x-ray findings. Patient is stable to be discharged home. PHYSICAL EXAMINATION: Patient is lying in the bed comfortably, no acute distress, awake alert and oriented.. HEENT: Normocephalic. Neck is supple. Pupils reactive. Nostrils clear. Oral cavity is moist. Neck reveals no JVD, carotid bruits, or thyromegaly. CHEST EXAMINATION: Trachea is central. Symmetrical expansion. Mild wheezing . CARDIAC: Normal S1, S2 with no gallops. No murmurs ABDOMEN: Soft. Bowel sounds normal. No organomegaly. No abdominal bruits. Extremities: reveal no edema. No clubbing or cyanosis Neurologically awake, alert, oriented x3 with well-coordinated movements. No focal deficits noted Skin: No rash or skin lesions. Psychiatric: Coperative. Nonsuicidal Musculoskeletal: No joint swelling or deformity. Normal range of motion. Discharge vitals reviewed. Patient Condition at Discharge: Fair Plan - Discharge Summary New Discharge Prescriptions: New predniSONE See Taper PO DIRECTED #30 tab Azithromycin [Zithromax] 500 mg PO DAILY #3 tab Continue Mometasone/Formoterol [Dulera 100 Mcg-5 Mcg Inhaler] 2 puff INHALATION RT-BID Allopurinol [Zyloprim] 100 mg PO DAILY Tamsulosin HCl [Flomax] 0.4 mg PO W/SUPPER Metoprolol Succinate [Toprol Xl] 50 mg PO DAILY Rosuvastatin [Crestor] 20 mg PO W/SUPPER Lisinopril [Zestril] 10 mg PO DAILY Ipratropium-Albuterol Nebulize [Duoneb 0.5 mg-3 mg/3 ml Soln] 3 ml INHALATION RT-Q4H Pantoprazole [Protonix] 40 mg PO DAILY Loratadine 10 mg PO DAILY Aspirin EC [Ecotrin Low Dose] 81 mg PO DAILY Furosemide [Lasix] 20 mg PO DAILY PRN PRN Reason: Edema Montelukast Sodium [Singulair] 10 mg PO HS Ergocalciferol [Vitamin D2 (1250 Mcg = 92735 Iu)] 1,250 mcg PO Q14D Discharge Medication List Allopurinol [Zyloprim] 100 mg PO DAILY 03/02/16 [History] Mometasone/Formoterol [Dulera 100 Mcg-5 Mcg Inhaler] 2 puff INHALATION RT-BID 03/02/16 [History] Metoprolol Succinate [Toprol Xl] 50 mg PO DAILY 12/29/17 [History] Tamsulosin HCl [Flomax] 0.4 mg PO W/SUPPER 12/29/17 [History] Ipratropium-Albuterol Nebulize [Duoneb 0.5 mg-3 mg/3 ml Soln] 3 ml INHALATION RT-Q4H 02/27/19 [History] Lisinopril [Zestril] 10 mg PO DAILY 02/27/19 [History] Rosuvastatin [Crestor] 20 mg PO W/SUPPER 02/27/19 [History] Pantoprazole [Protonix] 40 mg PO DAILY 03/03/19 [History] Loratadine 10 mg PO DAILY 08/16/20 [History] Montelukast Sodium [Singulair] 10 mg PO HS 08/16/20 [History] Aspirin EC [Ecotrin Low Dose] 81 mg PO DAILY 10/10/20 [History] Ergocalciferol [Vitamin D2 (1250 Mcg = 57156 Iu)] 1,250 mcg PO Q14D 10/10/20 [History] Furosemide [Lasix] 20 mg PO DAILY PRN 12/12/20 [History] Azithromycin [Zithromax] 500 mg PO DAILY #3 tab 12/15/20 [Rx] predniSONE See Taper PO DIRECTED #30 tab 12/15/20 [Rx] Follow up Appointment(s)/Referral(s): Deanna Kate MD [Primary Care Provider] - 1-2 days (Office will call you with appointment.) Gary Lee MD [STAFF PHYSICIAN] - 12/23/20 9:30 am Patient Instructions/Handouts: COPD (Chronic Obstructive Pulmonary Disease) (DC), Community Acquired Pneumonia (DC) Discharge Disposition: HOME SELF-CARE
== END 2020-12-15 13:30 | disposition home or self-care (01) | DRG 193 ==
LOC: EC 19:54 → 4SSUR 22:09
PROVIDERS: ADMIT Internal Medicine; ATTEND Internal Medicine
DX: J18.9 Pneumonia, unspecified organism (principal); J96.22 Acute and chronic respiratory failure with hypercapnia; J96.21 Acute and chronic respiratory failure with hypoxia; E87.1 Hypo-osmolality and hyponatremia; J44.1 Chronic obstructive pulmonary disease with (acute) exacerbation; J44.0 Chronic obstructive pulmonary disease with (acute) lower respiratory infection; I25.119 Atherosclerotic heart disease of native coronary artery with unspecified angina pectoris; J40 Bronchitis, not specified as acute or chronic; I95.9 Hypotension, unspecified; E11.9 Type 2 diabetes mellitus without complications; E78.5 Hyperlipidemia, unspecified; E66.01 Morbid (severe) obesity due to excess calories; I12.9 Hypertensive chronic kidney disease with stage 1 through stage 4 chronic kidney disease, or unspecified chronic kidney disease; K21.9 Gastro-esophageal reflux disease without esophagitis; T50.1X5A Adverse effect of loop [high-ceiling] diuretics, initial encounter; M10.9 Gout, unspecified; Z86.16 Personal history of COVID-19; N40.0 Benign prostatic hyperplasia without lower urinary tract symptoms; L98.9 Disorder of the skin and subcutaneous tissue, unspecified; Z87.891 Personal history of nicotine dependence; Z95.5 Presence of coronary angioplasty implant and graft; I25.2 Old myocardial infarction; Z79.899 Other long term (current) drug therapy; Z79.51 Long term (current) use of inhaled steroids; Z79.82 Long term (current) use of aspirin; Z99.81 Dependence on supplemental oxygen; X58.XXXA Exposure to other specified factors, initial encounter; Z20.822 Contact with and (suspected) exposure to COVID-19; Z87.19 Personal history of other diseases of the digestive system; Z86.14 Personal history of Methicillin resistant Staphylococcus aureus infection; Z68.33 Body mass index [BMI] 33.0-33.9, adult
CPT/HCPCS: 36415; 71046; 71275; 80053; 84484; 85025; 85610; 85730; 87635; 93005; 94640; 96374; 96375; 99285

== ENCOUNTER 2021-10-20 06:34 | Day surgery (SDC) | payer MEDICARE ==
[2021-10-19 08:57] VITALS: BMI 33.9
[2021-10-20] MEDS ORDERED: LACTATED RINGERS 1,000 ML IV SCH (06:36)
[2021-10-20 07:21] VITALS: TEMP 96.7
[2021-10-20] MEDS ORDERED: LIDOCAINE 1% (10MG/ML) FOR IV START INTRADERMA ONE (07:36)
[2021-10-20 07:39] LABS: Glucose,Whole Blood 130 mg/dL (75-99)
[2021-10-20] MEDS ORDERED: PROPOFOL 10 MG/ML 20 ML VIAL IV ONE (07:54)
--- NOTE | 2021-10-20 08:00 | P.GSHP ---
History of Present Illness H&P Date: 10/20/21 Chief Complaint: gi bleed, history of colon polyps This is a 76-year-old male presents today for colonoscopy patient's issues with some rectal bleeding and has history of colon polyps. Past Medical History Past Medical History: Coronary Artery Disease (CAD), Chest Pain / Angina, COPD, Diabetes Mellitus, GERD/Reflux, GI Bleed, Myocardial Infarction (RI), Skin Disorder Additional Past Medical History / Comment(s): Hx of rectal bleeding, rectal fissure; gout, bronchitis, uses O2 @ 2L [place] at night & prn. +Covid 08/2020. Hx cysts on groin area. Last Myocardial Infarction Date:: approx 2005 History of Any Multi-Drug Resistant Organisms: None Reported Past Surgical History: Heart Catheterization With Stent Additional Past Surgical History / Comment(s): total 3 cardiac stents, surgery for cyst in rectal area, siddharth cataracts, uro lift, cysts removed from testicles Past Anesthesia/Blood Transfusion Reactions: No Reported Reaction Date of Last Stent Placement:: 2005 Smoking Status: Former smoker - Past Family History Father Family Medical History: Cancer Additional Family Medical History / Comment(s): lung cancer Mother Family Medical History: No Reported History Additional Family Medical History / Comment(s): Mother was healthy and lived to be in her 90s. Medications and Allergies Home Medications Medication Instructions Recorded Confirmed Type Allopurinol [Zyloprim] 100 mg PO DAILY 03/02/16 10/20/21 History Mometasone/Formoterol [Dulera 100 2 puff INHALATION RT-BID 03/02/16 10/20/21 History Mcg-5 Mcg Inhaler] Metoprolol Succinate [Toprol Xl] 50 mg PO DAILY 12/29/17 10/20/21 History Tamsulosin HCl [Flomax] 0.4 mg PO W/SUPPER 12/29/17 10/20/21 History Ipratropium-Albuterol Nebulize 3 ml INHALATION RT-Q4H 02/27/19 10/20/21 History [Duoneb 0.5 mg-3 mg/3 ml Soln] Lisinopril [Zestril] 10 mg PO DAILY 02/27/19 10/20/21 History Rosuvastatin [Crestor] 20 mg PO W/SUPPER 02/27/19 10/20/21 History Pantoprazole [Protonix] 40 mg PO DAILY 03/03/19 10/20/21 History Loratadine 10 mg PO DAILY 08/16/20 10/20/21 History Montelukast Sodium [Singulair] 10 mg PO HS 08/16/20 10/20/21 History Aspirin EC [Ecotrin Low Dose] 81 mg PO DAILY 10/10/20 10/20/21 History Furosemide [Lasix] 20 mg PO DAILY 12/12/20 10/20/21 History Acetaminophen [Tylenol Extra 500 - 1,000 mg PO DIRECTED PRN 10/19/21 10/20/21 History Strength] Ascorbic Acid [Vitamin C] 500 mg PO DAILY 10/19/21 10/20/21 History Budesonide/Formoterol Fumarate 1 puff INHALATION DIRECTED PRN 10/19/21 10/20/21 History [Symbicort 80-4.5 Mcg Inhaler] Cholecalciferol [Vitamin D3 (25 25 mcg PO DAILY 10/19/21 10/20/21 History Mcg = 1000 Iu)] Fluticasone Nasal [place] [Flonase 2 spray EA NOSTRIL DAILY PRN 10/19/21 10/20/21 History Nasal [place]] Multivitamins, Thera [Multivitamin 1 tab PO DAILY 10/19/21 10/20/21 History (formulary)] Potassium Gluconate [Potassium 99 mg PO DAILY 10/19/21 10/20/21 History Gluconate ER] Zinc 50 mg PO DAILY 10/19/21 10/20/21 History metFORMIN HCL [Glucophage] 500 mg PO BID 10/19/21 10/20/21 History Allergies Allergy/AdvReac Type Severity Reaction Status Date / Time No Known Allergies Allergy Verified 10/20/21 06:54 Surgical - Exam Vital Signs Temp Pulse Resp BP Pulse Ox 96.7 F L 99 22 149/71 92 L 10/20/21 07:18 10/20/21 07:18 10/20/21 07:18 10/20/21 07:18 10/20/21 07:18 - General well developed, well nourished, no distress - Eyes PERRL - ENT normal pinna - Neck no masses - Respiratory normal expansion - Cardiovascular Rhythm: regular - Abdomen Abdomen: soft, non tender Results - Labs Abnormal Lab Results - Last 24 Hours (Table) 10/20/21 Range/Units 07:29 POC Glucose (mg/dL) 130 H (75-99) mg/dL Assessment and Plan Assessment: GI Bleed History of colon polyps. We'll perform colonoscopy.
--- NOTE | 2021-10-20 08:18 | P.OP ---
Date of Procedure: 10/20/21 Preoperative Diagnosis: History of colon polyps Rectal bleeding Postoperative Diagnosis: Pilonidal cyst Transverse colon polyp Right colon polyp Diverticulosis Procedure(s) Performed: Colonoscopy Anesthesia: MAC Surgeon: Ubaldo Alfredo Pathology: other (Colon polyps) Condition: stable Disposition: PACU Description of Procedure: The patient's placed on the endoscopy table in the lateral position. He received IV sedation. Digital rectal exam performed. This revealed a few external hemorrhoids. Flexible colonoscope was then placed patient anus and passed throughout the entire colon. The ileocecal valve was visualized. There was a large amount liquid stool in the right colon which limited the view of the mucosa. The distal right colon had a small sessile polyp. This removed the cold forcep. In the transverse colon another cold forcep was used to remove a sessile polyp. In the descending; extensive diverticular changes. Scope brought back the rectum this appeared normal. Scope withdrawn for patient. There is known to any rectal bleeding presumed patient may have had some bleed ing from hemorrhoids. The patient's pilonidal cysts looked chronically inflamed.
[2021-10-20 08:25] VITALS: RESP 16
[2021-10-20 10:12] VITALS: BP 147/62; PULSE 88
== END 2021-10-20 10:11 | disposition home or self-care (01) ==
LOC: ORWHC2ENDO 06:34
PROVIDERS: ATTEND Surgery
DX: D12.3 Benign neoplasm of transverse colon (principal); K57.30 Diverticulosis of large intestine without perforation or abscess without bleeding; K64.4 Residual hemorrhoidal skin tags; Z86.010 Personal history of colon polyps; K92.2 Gastrointestinal hemorrhage, unspecified; I25.10 Atherosclerotic heart disease of native coronary artery without angina pectoris; J44.9 Chronic obstructive pulmonary disease, unspecified; E11.9 Type 2 diabetes mellitus without complications; K21.9 Gastro-esophageal reflux disease without esophagitis; I25.2 Old myocardial infarction; M10.9 Gout, unspecified; Z86.16 Personal history of COVID-19; Z95.5 Presence of coronary angioplasty implant and graft; Z98.890 Other specified postprocedural states; Z98.42 Cataract extraction status, left eye; Z98.41 Cataract extraction status, right eye; Z87.891 Personal history of nicotine dependence; Z80.1 Family history of malignant neoplasm of trachea, bronchus and lung; Z79.82 Long term (current) use of aspirin; Z79.51 Long term (current) use of inhaled steroids; Z79.899 Other long term (current) drug therapy; Z79.84 Long term (current) use of oral hypoglycemic drugs
CPT/HCPCS: 88305; 45380; J2704

== ENCOUNTER 2021-12-15 08:14 | Inpatient (IN) | payer MEDICARE ==
[2021-12-15] MEDS ORDERED: methylPREDNISolone SOD SUCCI 125 MG/2 ML VIAL IV STA (08:36)
[2021-12-15] MEDS ORDERED: IPRATROPIUM-ALBUTEROL 3 ML NEB INHALATION STA (08:36)
[2021-12-15 09:03] LABS: Basophils # (A) 0.1 k/uL (0-0.2); Basophils % (A) 2 %; Eosinophils # (A) 0.1 k/uL (0-0.7); Eosinophils % (A) 1 %; HCT 49.1 % (39.0-53.0); HGB 16.3 gm/dL (13.0-17.5); Lymphocytes # (A) 0.9 k/uL (1.0-4.8); Lymphocytes % (A) 13 %; MCH 30.7 pg (25.0-35.0); MCHC 33.3 g/dL (31.0-37.0); MCV 92.1 fL (80.0-100.0); Mean Platelet Volume 7.4; Monocytes # (A) 0.7 k/uL (0-1.0); Monocytes % (A) 10 %; Neutrophils # (A) 4.7 k/uL (1.3-7.7); Neutrophils % (A) 72 %; Platelet Count 152 k/uL (150-450); RBC 5.33 m/uL (4.30-5.90); RDW 13.4 % (11.5-15.5); WBC 6.6 k/uL (3.8-10.6)
[2021-12-15 09:14] LABS: Albumin 4.6 g/dL (3.5-5.0); Calcium 9.4 mg/dL (8.4-10.2); Magnesium 1.6 mg/dL (1.6-2.3); Potassium 4.3 mmol/L (3.5-5.1); Total Bilirubin 1.2 mg/dL (0.2-1.3); Total Protein 7.2 g/dL (6.3-8.2)
--- NOTE | 2021-12-15 09:14 | XR ---
EXAMINATION TYPE: XR chest 2V DATE OF EXAM: 12/15/2021 COMPARISON: 12/11/2020 HISTORY: 76 year-old male shortness of breath, difficulty breathing TECHNIQUE: AP and lateral views FINDINGS: Heart borderline enlarged. Hyperinflation. Diffuse interstitial opacity persists. Mild patchy density periphery of the right mid and lower lung. No sizable pleural effusion. IMPRESSION: COPD with persistent mild patchy infiltrate/pneumonia in the periphery of the right mid and lower margie g.
[2021-12-15] MEDS ORDERED: AZITHROMYCIN 500 MG in SODIUM CHLORIDE 0.9% 250 ML IVPB STA (09:24)
[2021-12-15 09:57] LABS: INR 1.1 (<1.2); Partial Thromboplastin Time 24.7 sec (22.0-30.0); Prothrombin Time 11.5 sec (9.0-12.0)
--- NOTE | 2021-12-15 10:06 | ED ---
SOB HPI - General Chief Complaint: Shortness of Breath Stated Complaint: JASMIN Time Seen by Provider: 12/15/21 08:24 Source: patient, RN notes reviewed Mode of arrival: ambulatory Limitations: no limitations - History of Present Illness Initial Comments: 76-year-old male presents emergency Department with chief complaint increasing cough congestion, shortness breath. Patient does have underlying COPD. Patient states he is feeling worse or breath having or difficult time and that he unable to fully talking complete sentences. Patient states that he's tried multiple treatments prior arrival with minimal relief of symptoms. Patient had low-grade fever. Patient also minutes leg swelling and which she states been having on and off. Patient has no history of CHF. Patient denies any sick contacts. - Related Data Home Medications Medication Instructions Recorded Confirmed Mometasone/Formoterol [Dulera 100 2 puff INHALATION RT-BID 03/02/16 10/20/21 Mcg-5 Mcg Inhaler] allopurinoL [Zyloprim] 100 mg PO DAILY 03/02/16 10/20/21 Metoprolol Succinate [Toprol Xl] 50 mg PO DAILY 12/29/17 10/20/21 Tamsulosin HCl [Flomax] 0.4 mg PO W/SUPPER 12/29/17 10/20/21 Ipratropium-Albuterol Nebulize 3 ml INHALATION RT-Q4H 02/27/19 10/20/21 [Duoneb 0.5 mg-3 mg/3 ml Soln] Rosuvastatin [Crestor] 20 mg PO W/SUPPER 02/27/19 10/20/21 lisinopriL [Zestril] 10 mg PO DAILY 02/27/19 10/20/21 Pantoprazole [Protonix] 40 mg PO DAILY 03/03/19 10/20/21 Loratadine 10 mg PO DAILY 08/16/20 10/20/21 Montelukast Sodium [Singulair] 10 mg PO HS 08/16/20 10/20/21 Aspirin EC [Ecotrin Low Dose] 81 mg PO DAILY 10/10/20 10/20/21 Furosemide [Lasix] 20 mg PO DAILY 12/12/20 10/20/21 Acetaminophen [Tylenol Extra 500 - 1,000 mg PO DIRECTED PRN 10/19/21 10/20/21 Strength] Ascorbic Acid [Vitamin C] 500 mg PO DAILY 10/19/21 10/20/21 Budesonide/Formoterol Fumarate 1 puff INHALATION DIRECTED PRN 10/19/21 10/20/21 [Symbicort 80-4.5 Mcg Inhaler] Cholecalciferol [Vitamin D3 (25 25 mcg PO DAILY 10/19/21 10/20/21 Mcg = 1000 Iu)] Fluticasone Nasal [place] [Flonase 2 spray EA NOSTRIL DAILY PRN 10/19/21 10/20/21 Nasal [place]] Multivitamins, Thera [Multivitamin 1 tab PO DAILY 10/19/21 10/20/21 (formulary)] Potassium Gluconate [Potassium 99 mg PO DAILY 10/19/21 10/20/21 Gluconate ER] Zinc 50 mg PO DAILY 10/19/21 10/20/21 metFORMIN HCL [Glucophage] 500 mg PO BID 10/19/21 10/20/21 Allergies Allergy/AdvReac Type Severity Reaction Status Date / Time No Known Allergies Allergy Verified 12/15/21 08:23 Review of Systems ROS Statement: Those systems with pertinent positive or pertinent negative responses have been documented in the HPI. ROS Other: All systems not noted in ROS Statement are negative. Past Medical History Past Medical History: Coronary Artery Disease (CAD), Chest Pain / Angina, COPD, Diabetes Mellitus, GERD/Reflux, GI Bleed, Myocardial Infarction ([place]), Skin Disorder Additional Past Medical History / Comment(s): Hx of rectal bleeding, rectal fissure; gout, bronchitis, uses O2 @ 2L NC at night & prn. +Covid 08/2020. Hx cysts on groin area. Last Myocardial Infarction Date:: 2005 History of Any Multi-Drug Resistant Organisms: None Reported Past Surgical History: Heart Catheterization With Stent Additional Past Surgical History / Comment(s): total 3 cardiac stents, surgery for cyst in rectal area, siddharth cataracts, uro lift, cysts removed from testicles Past Anesthesia/Blood Transfusion Reactions: No Reported Reaction Date of Last Stent Placement:: 2005 Past Psychological History: No Psychological Hx Reported Smoking Status: Former smoker Past Alcohol Use History: Occasional Past Drug Use History: None Reported - Past Family History Father Family Medical History: Cancer Additional Family Medical History / Comment(s): lung cancer Mother Family Medical History: No Reported History Additional Family Medical History / Comment(s): Mother was healthy and lived to be in her 90s. General Exam Limitations: no limitations General appearance: alert, in no apparent distress Head exam: Present: atraumatic, normocephalic, normal inspection Eye exam: Present: normal appearance, PERRL, EOMI. Absent: scleral icterus, conjunctival injection, periorbital swelling ENT exam: Present: normal exam, normal oropharynx, mucous membranes moist Neck exam: Present: normal inspection, full ROM. Absent: tenderness, meningismus, lymphadenopathy Respiratory exam: Present: respiratory distress, wheezes, decreased breath sounds. Absent: normal lung sounds bilaterally, rales, rhonchi, stridor Cardiovascular Exam: Present: tachycardia, irregular rhythm, normal heart sounds. Absent: normal rhythm, systolic murmur, diastolic murmur, rubs, gallop, clicks GI/Abdominal exam: Present: soft, normal bowel sounds. Absent: distended, tenderness, guarding, rebound, rigid Extremities exam: Present: pedal edema Neurological exam: Present: alert, oriented X3 Skin exam: Present: warm, dry, intact, normal color. Absent: rash Course Vital Signs 12/15/21 12/15/21 12/15/21 08:18 10:00 10:05 Temperature 98.9 F Pulse Rate 106 H 91 94 Respiratory 22 Rate Blood Pressure 138/77 O2 Sat by Pulse 94 L Oximetry Medical Decision Making - Medical Decision Making 76-year-old male presented for dyspnea. Patient's found to have COPD exacerbation with pneumonia patient also had atrial flutter rate in the low 100s. Patient was started on IV fluids, antibiotics, steroids, breathing treatments. Patiently admitted with primary consult. - Lab Data Result diagrams: 12/15/21 08:49 12/15/21 08:49 Lab Results 12/15/21 12/15/21 12/15/21 Range/Units 08:49 08:49 08:49 WBC 6.6 (3.8-10.6) k/uL RBC 5.33 (4.30-5.90) m/uL Hgb 16.3 (13.0-17.5) gm/dL Hct 49.1 (39.0-53.0) % MCV 92.1 (80.0-100.0) fL MCH 30.7 (25.0-35.0) pg MCHC 33.3 (31.0-37.0) g/dL RDW 13.4 (11.5-15.5) % Plt Count 152 (150-450) k/uL MPV 7.4 Neutrophils % 72 % Lymphocytes % 13 % Monocytes % 10 % Eosinophils % 1 % Basophils % 2 % Neutrophils # 4.7 (1.3-7.7) k/uL Lymphocytes # 0.9 L (1.0-4.8) k/uL Monocytes # 0.7 (0-1.0) k/uL Eosinophils # 0.1 (0-0.7) k/uL Basophils # 0.1 (0-0.2) k/uL PT 11.5 (9.0-12.0) sec INR 1.1 (<1.2) APTT 24.7 (22.0-30.0) sec Sodium 134 L (137-145) mmol/L Potassium 4.3 (3.5-5.1) mmol/L Chloride 96 L (98-107) mmol/L Carbon Dioxide 24 (22-30) mmol/L Anion Gap 14 mmol/L BUN 14 (9-20) mg/dL Creatinine 1.13 (0.66-1.25) mg/dL Est GFR (CKD-EPI)AfAm 73 (>60 ml/min/1.73 sqM) Est GFR (CKD-EPI)NonAf 63 (>60 ml/min/1.73 sqM) Glucose 134 H (74-99) mg/dL Plasma Lactic Acid Nakul (0.7-2.0) mmol/L Calcium 9.4 (8.4-10.2) mg/dL Magnesium 1.6 (1.6-2.3) mg/dL Total Bilirubin 1.2 (0.2-1.3) mg/dL AST 34 (17-59) U/L ALT 19 (4-49) U/L Alkaline Phosphatase 81 (38-126) U/L Troponin I (0.000-0.034) ng/mL NT-Pro-B Natriuret Pep pg/mL Total Protein 7.2 (6.3-8.2) g/dL Albumin 4.6 (3.5-5.0) g/dL Coronavirus (PCR) (Not Detectd) 12/15/21 12/15/21 12/15/21 Range/Units 08:49 08:49 08:49 WBC (3.8-10.6) k/uL RBC (4.30-5.90) m/uL Hgb (13.0-17.5) gm/dL Hct (39.0-53.0) % MCV (80.0-100.0) fL MCH (25.0-35.0) pg MCHC (31.0-37.0) g/dL RDW (11.5-15.5) % Plt Count (150-450) k/uL MPV Neutrophils % % Lymphocytes % % Monocytes % % Eosinophils % % Basophils % % Neutrophils # (1.3-7.7) k/uL Lymphocytes # (1.0-4.8) k/uL Monocytes # (0-1.0) k/uL Eosinophils # (0-0.7) k/uL Basophils # (0-0.2) k/uL PT (9.0-12.0) sec INR (<1.2) APTT (22.0-30.0) sec Sodium (137-145) mmol/L Potassium (3.5-5.1) mmol/L Chloride (98-107) mmol/L Carbon Dioxide (22-30) mmol/L Anion Gap mmol/L BUN (9-20) mg/dL Creatinine (0.66-1.25) mg/dL Est GFR (CKD-EPI)AfAm (>60 ml/min/1.73 sqM) Est GFR (CKD-EPI)NonAf (>60 ml/min/1.73 sqM) Glucose (74-99) mg/dL Plasma Lactic Acid Nakul 1.9 (0.7-2.0) mmol/L Calcium (8.4-10.2) mg/dL Magnesium (1.6-2.3) mg/dL Total Bilirubin (0.2-1.3) mg/dL AST (17-59) U/L ALT (4-49) U/L Alkaline Phosphatase (38-126) U/L Troponin I <0.012 (0.000-0.034) ng/mL NT-Pro-B Natriuret Pep 456 pg/mL Total Protein (6.3-8.2) g/dL Albumin (3.5-5.0) g/dL Coronavirus (PCR) (Not Detectd) 12/15/21 Range/Units 08:49 WBC (3.8-10.6) k/uL RBC (4.30-5.90) m/uL Hgb (13.0-17.5) gm/dL Hct (39.0-53.0) % MCV (80.0-100.0) fL MCH (25.0-35.0) pg MCHC (31.0-37.0) g/dL RDW (11.5-15.5) % Plt Count (150-450) k/uL MPV Neutrophils % % Lymphocytes % % Monocytes % % Eosinophils % % Basophils % % Neutrophils # (1.3-7.7) k/uL Lymphocytes # (1.0-4.8) k/uL Monocytes # (0-1.0) k/uL Eosinophils # (0-0.7) k/uL Basophils # (0-0.2) k/uL PT (9.0-12.0) sec INR (<1.2) APTT (22.0-30.0) sec Sodium (137-145) mmol/L Potassium (3.5-5.1) mmol/L Chloride (98-107) mmol/L Carbon Dioxide (22-30) mmol/L Anion Gap mmol/L BUN (9-20) mg/dL Creatinine (0.66-1.25) mg/dL Est GFR (CKD-EPI)AfAm (>60 ml/min/1.73 sqM) Est GFR (CKD-EPI)NonAf (>60 ml/min/1.73 sqM) Glucose (74-99) mg/dL Plasma Lactic Acid Nakul (0.7-2.0) mmol/L Calcium (8.4-10.2) mg/dL Magnesium (1.6-2.3) mg/dL Total Bilirubin (0.2-1.3) mg/dL AST (17-59) U/L ALT (4-49) U/L Alkaline Phosphatase (38-126) U/L Troponin I (0.000-0.034) ng/mL NT-Pro-B Natriuret Pep pg/mL Total Protein (6.3-8.2) g/dL Albumin (3.5-5.0) g/dL Coronavirus (PCR) Not Detected (Not Detectd) Critical Care Time Critical Care Time: Yes Total Critical Care Time: 35 Disposition Clinical Impression: COPD exacerbation, Pneumonia, Atrial flutter Disposition: ADMITTED IP TO THIS HOSP Condition: Poor Referrals: Deanna Kate MD [Primary Care Provider] - 1-2 days Time of Disposition: 10:05
[2021-12-15] MEDS ORDERED: NALOXONE 0.4 MG/ML 1 ML VIAL IVP PRN (10:24)
[2021-12-15] MEDS ORDERED: IPRATROPIUM-ALBUTEROL 3 ML NEB INHALATION PRN (10:24)
[2021-12-15] MEDS ORDERED: ACETAMINOPHEN TAB 325 MG TAB PO PRN (10:24)
[2021-12-15] MEDS: IPRATROPIUM-ALBUTEROL 3 ML NEB INHALATION SCH ×3 (12:31→19:33)
[2021-12-15] MEDS ORDERED: LIDOCAINE VISCOUS 2% 15 ML CUP MUCOUS MEM PRN (13:04)
[2021-12-15] MEDS: methylPREDNISolone SOD SUCCI 125 MG/2 ML VIAL IV SCH ×2 (13:28→17:34)
[2021-12-15] MEDS ORDERED: FLUTICASONE 50MCG/SPRAY NASAL 16GM EA NOSTRIL PRN (16:13)
[2021-12-15] MEDS ORDERED: ALPRAZolam 0.25 MG TAB PO PRN (16:23)
[2021-12-15] MEDS: ATORVASTATIN 40 MG TAB PO SCH (16:45)
[2021-12-15] MEDS: TAMSULOSIN 0.4 MG CAP.ER.24H PO SCH (16:45)
[2021-12-15] MEDS: FUROSEMIDE 10 MG/ML 4 ML VIAL IV SCH (16:45)
--- NOTE | 2021-12-15 16:48 | HP ---
HISTORY AND PHYSICAL CHIEF COMPLAINT: Shortness of breath. HISTORY OF PRESENT ILLNESS: This 76-year-old gentleman with a past medical history of multiple medical problems, including CAD, COPD, diabetes mellitus, type 2, was complaining of shortness of breath and cough for the last more than a week. Because of lack of improvement, the patient came to [facility] and was admitted for further evaluation and treatment. The patient has taken nebulizers. The patient was suspected to have right lower lobe pneumonia. There is no history of any fever, rigor or chills at this time. PAST MEDICAL HISTORY: History of CAD, COPD, GERD. HOME MEDICATIONS: Reviewed. They include Tylenol, Flomax. Doses and the rest of the medications are reviewed. ALLERGIES: NONE. FAMILY HISTORY: History of lung cancer in the family. SOCIAL HISTORY: Previous history of smoking. REVIEW OF SYSTEMS: Fourteen-point review of systems negative except as mentioned earlier. PHYSICAL EXAMINATION: Pulse is 103, regular, blood pressure 105/64, respiration 19. HEENT: Conjunctivae normal. NECK: No jugular venous distention. CARDIOVASCULAR: S1, S2 muffled. RESPIRATION: Breath sounds diminished at the bases. Breathing efforts increased. Bilateral scattered rhonchi and crackles. Expiratory wheezing also present. ABDOMEN: Soft, nontender. LEGS: Bilateral leg edema. NERVOUS SYSTEM: Moves all 4 limbs. No focal deficit. LYMPHATICS: No lymph node palpable in neck, axillae or groin. SKIN: No ulcer, rash, bleeding. JOINTS: No active deforming arthropathy. LABS: CBC within normal limits. noted. ASSESSMENT: 1. Chronic obstructive pulmonary disease, acute exacerbation, with acute right lower lobe pneumonia. 2. Diabetes mellitus, type 2. 3. History of coronary artery disease. 4. Multiple medical issues. RECOMMENDATIONS AND DISCUSSION: In this 76-year-old gentleman who presented with multiple complex medical issues, we will monitor the patient closely. Will optimize bronchodilator treatment, empiric antibiotics. The patient has also seen Dr. Terry Perea previously. Will consult Dr. Perea. Other than that, prognosis is guarded. Further recommendations to follow. See orders for further details. IV steroids. MMODL / IJN: [id number] / MTDD
[2021-12-15 19:12] LABS: Glucose,Whole Blood 288 mg/dL (70-110)
[2021-12-15] MEDS: FORMOTEROL FUMARATE 20 MCG/2 ML NEBU INHALATION SCH (19:33)
[2021-12-15] MEDS: BUDESONIDE 1 MG/2 ML NEBU INHALATION SCH (19:34)
[2021-12-15] MEDS: HEPARIN SODIUM,PORCINE/PF 5,000 UNIT/0.5 ML SYRINGE SQ SCH (21:45)
[2021-12-15] MEDS: MONTELUKAST 10 MG TAB PO SCH (21:45)
[2021-12-15] MEDS: metFORMIN 500 MG TAB PO SCH (21:45)
[2021-12-16] MEDS: methylPREDNISolone SOD SUCCI 125 MG/2 ML VIAL IV SCH ×4 (00:01→16:57)
[2021-12-16 07:04] LABS: Glucose,Whole Blood 190 mg/dL (70-110)
[2021-12-16] MEDS: lisinopriL 10 MG TAB PO SCH (07:47)
[2021-12-16] MEDS: PANTOPRAZOLE 40 MG TABLET PO SCH (07:47)
[2021-12-16] MEDS: METOPROLOL SUCCINATE (ER) 50 MG TAB.ER.24H PO SCH (07:47)
[2021-12-16] MEDS: LORATADINE 10 MG TAB PO SCH (07:47)
[2021-12-16] MEDS: ASCORBIC ACID 500 MG TAB PO SCH (07:47)
[2021-12-16] MEDS: MULTIVITAMINS, THERA 1 EACH TAB PO SCH (07:47)
[2021-12-16] MEDS: ZINC SULFATE 220 MG CAP PO SCH (07:48)
[2021-12-16] MEDS: CHOLECALCIFEROL 25 MCG (1000 IU) TABLET PO SCH (07:48)
[2021-12-16] MEDS: ASPIRIN 81 MG PO SCH (07:48)
[2021-12-16] MEDS: metFORMIN 500 MG TAB PO SCH ×2 (07:48→21:59)
[2021-12-16] MEDS: allopurinoL 100 MG TAB PO SCH (07:48)
[2021-12-16] MEDS: HEPARIN SODIUM,PORCINE/PF 5,000 UNIT/0.5 ML SYRINGE SQ SCH ×2 (07:51→21:59)
[2021-12-16] MEDS: FUROSEMIDE 10 MG/ML 4 ML VIAL IV SCH (07:56)
[2021-12-16] MEDS: IPRATROPIUM-ALBUTEROL 3 ML NEB INHALATION SCH ×4 (08:27→19:34)
[2021-12-16] MEDS: FORMOTEROL FUMARATE 20 MCG/2 ML NEBU INHALATION SCH ×2 (08:27→19:34)
[2021-12-16] MEDS: BUDESONIDE 1 MG/2 ML NEBU INHALATION SCH ×2 (08:27→19:34)
[2021-12-16] MEDS ORDERED: NON FORMULARY DRUG (Potassium Gluconate [Potassium Gluconate Er] 99 MG Tablet) PO SCH (09:00)
--- NOTE | 2021-12-16 09:04 | CA ---
Transthoracic Echo Report Name: Salvatore Aguilar Age: 76 Gender: M : 1945 Exam Date: 12/15/2021 13:11 Exam Location: [facility] Ht (in): 72 Wt (lb): 240 Ordering Physician: Ryan Logan Attending/Referring Phys: [id number], [employer] Compliance Director Cathy Morin, FADIA Procedure CPT: Indications: Dyspnea, leg edema Cardiac Hx: Technical Quality: Poor Contrast 1: Lumason Total Dose (mL): 4 Contrast 2: Total Dose (mL): MEASUREMENTS (Male / Female) Normal Values 2D ECHO LV Diastolic Diameter PLAX 4.0 cm 4.2 - 5.9 / 3.9 - 5.3 cm LV Systolic Diameter PLAX 2.8 cm IVS Diastolic Thickness 1.3 cm 0.6 - 1.0 / 0.6 - 0.9 cm LVPW Diastolic Thickness 1.1 cm 0.6 - 1.0 / 0.6 - 0.9 cm LV Relative Wall Thickness 0.6 LA Volume 64.9 cm??? 18 - 58 / 22 - 52 cm??? M-MODE Aortic Root Diameter MM 3.0 cm LA Systolic Diameter MM 3.4 cm LA Ao Ratio MM 1.1 DOPPLER AV Peak Velocity 124.7 cm/s AV Peak Gradient 6.2 mmHg LVOT Peak Velocity 97.1 cm/s LVOT Peak Gradient 3.8 mmHg MV Area PHT 7.5 cm??? Mitral E Point Velocity 69.0 cm/s Mitral A Point Velocity 94.1 cm/s Mitral E to A Ratio 0.7 MV Deceleration Time 101.8 ms FINDINGS Left Ventricle Mildly increased septal wall thickness. No obvious regional wall motion abnormalities. Left ventricular ejection fraction is estimated at 55 %. Right Ventricle Normal right ventricular size. Right Atrium Right atrium not well visualized. Left Atrium Mildly increased left atrial volume. Mitral Valve No mitral stenosis, regurgitation or prolapse. Mild mitral regurgitation. Aortic Valve No aortic valve stenosis or regurgitation. Tricuspid Valve Mild tricuspid regurgitation. Pulmonic Valve No pulmonic regurgitation. Pericardium No pericardial effusion. Aorta Normal size aortic root and proximal ascending aorta. CONCLUSIONS Technically difficult study. Echo contrast was used. Grossly normal systolic function with mild concentric LVH. Mild mitral and tricuspid regurgitation. Doppler exam is overall suboptimal no pericardial effusion possible fat pad Previewed by: Dr. Rodri Lee MD (Electronically Signed) Final Date: 16 December 2021 09:03
--- NOTE | 2021-12-16 10:12 | P.CNPUL ---
History of Present Illness Consult date: 12/16/21 Reason for consult: dyspnea, cough, hypoxemia, pneumonia Chief complaint: Shortness of breath progressive in last 2-3 weeks History of present illness: 76-year-old male with prior history of smoking one to 2 packs per day quit about 5 years ago 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 His other active medical problems include coronary artery disease and angina type 2 diabetes mellitus GERD history of TX and GI bleed he uses 2 L oxygen he also has a history of rectal fissure he had a "infection in August 2020 he had 3 stents last and was placed in 2005 he has been evaluated for sleep disorder breathing and sleep apnea not to find significant sleep disorder. On arrival his chest x-ray consistent with COPD along with patchy bilateral infiltrate mostly in right mid and lower lung field suggestive of pneumonia. Covert testing is negative, BNP is less than 500 (within normal limit lactic acid is 1.9 blood glucose is 288 and 190. Currently he is on DuoNeb 4 times a day along with continuation of his home medications also on Pulmicort 2 times a day. Patient is also on Rocephin 1 g daily along with Solu-Medrol 60 IV every 6 feeling little bit better but still feeling scratchy throat he has prior history of thrush in the past and responded to nystatin swish and swallow Review of Systems All systems: negative Past Medical History Past Medical History: Coronary Artery Disease (CAD), Chest Pain / Angina, COPD, Diabetes Mellitus, GERD/Reflux, GI Bleed, Myocardial Infarction ([place]), Skin Disorder Additional Past Medical History / Comment(s): Hx of rectal bleeding, rectal fissure; gout, bronchitis, uses O2 @ 2L NC at night & prn. +Covid 08/2020. Hx cysts on groin area. Last Myocardial Infarction Date:: approx 2005 History of Any Multi-Drug Resistant Organisms: None Reported Past Surgical History: Heart Catheterization With Stent Additional Past Surgical History / Comment(s): total 3 cardiac stents, surgery for cyst in rectal area, siddharth cataracts, uro lift, cysts removed from testicles Past Anesthesia/Blood Transfusion Reactions: No Reported Reaction Date of Last Stent Placement:: 2005 Past Psychological History: No Psychological Hx Reported Smoking Status: Former smoker Past Alcohol Use History: Occasional Additional Past Alcohol Use History / Comment(s): Pt started smoking in 1956 and quit in 2016. States drinks mainly on weekends Past Drug Use History: None Reported - Past Family History Father Family Medical History: Cancer Additional Family Medical History / Comment(s): lung cancer Mother Family Medical History: No Reported History Additional Family Medical History / Comment(s): Mother was healthy and lived to be in her 90s. Medications and Allergies Home Medications Medication Instructions Recorded Confirmed Type allopurinoL [Zyloprim] 100 mg PO DAILY 03/02/16 12/15/21 History Metoprolol Succinate [Toprol Xl] 50 mg PO DAILY 12/29/17 12/15/21 History Tamsulosin HCl [Flomax] 0.4 mg PO W/SUPPER 12/29/17 12/15/21 History Ipratropium-Albuterol Nebulize 3 ml INHALATION RT-Q4H 02/27/19 12/15/21 History [Duoneb 0.5 mg-3 mg/3 ml Soln] Rosuvastatin [Crestor] 20 mg PO W/SUPPER 02/27/19 12/15/21 History lisinopriL [Zestril] 10 mg PO DAILY 02/27/19 12/15/21 History Pantoprazole [Protonix] 40 mg PO DAILY 03/03/19 12/15/21 History Loratadine 10 mg PO DAILY 08/16/20 12/15/21 History Montelukast Sodium [Singulair] 10 mg PO HS 08/16/20 12/15/21 History Aspirin EC [Ecotrin Low Dose] 81 mg PO DAILY 10/10/20 12/15/21 History Furosemide [Lasix] 20 mg PO DAILY 12/12/20 12/15/21 History Acetaminophen [Tylenol Extra 500 - 1,000 mg PO Q6H PRN 10/19/21 12/15/21 History Strength] Ascorbic Acid [Vitamin C] 500 mg PO DAILY 10/19/21 12/15/21 History Budesonide/Formoterol Fumarate 2 puff INHALATION RT-BID 10/19/21 12/15/21 History [Symbicort 80-4.5 Mcg Inhaler] Cholecalciferol [Vitamin D3 (25 25 mcg PO DAILY 10/19/21 12/15/21 History Mcg = 1000 Iu)] Fluticasone Nasal [place] [Flonase 2 spray EA NOSTRIL DAILY PRN 10/19/21 12/15/21 History Nasal [place]] Multivitamins, Thera [Multivitamin 1 tab PO DAILY 10/19/21 12/15/21 History (formulary)] Potassium Gluconate [Potassium 99 mg PO DAILY 10/19/21 12/15/21 History Gluconate ER] Zinc 50 mg PO DAILY 10/19/21 12/15/21 History metFORMIN HCL [Glucophage] 500 mg PO BID 10/19/21 12/15/21 History Allergies Allergy/AdvReac Type Severity Reaction Status Date / Time No Known Allergies Allergy Verified 12/15/21 08:23 Physical Exam Vitals: Vital Signs Temp Pulse Pulse Resp BP BP Pulse Ox 12/16/21 09:02 76 24 12/16/21 08:56 84 12/16/21 08:46 84 12/16/21 08:45 84 12/16/21 08:29 84 96 12/16/21 08:00 98 F 76 22 112/72 94 L 12/16/21 02:00 97.7 F 93 20 119/72 92 L 12/15/21 21:30 81 20 12/15/21 20:00 97.7 F 81 20 125/66 95 12/15/21 19:50 88 12/15/21 19:40 88 12/15/21 19:39 88 12/15/21 19:35 87 12/15/21 15:40 87 12/15/21 15:31 89 91 L 12/15/21 13:46 99.1 F 103 H 19 104/65 91 L 12/15/21 13:26 97 24 110/78 92 L 12/15/21 12:41 91 12/15/21 12:32 88 12/15/21 10:30 92 26 H 117/83 93 L 12/15/21 10:05 94 Intake and Output 12/15/21 12/16/21 12/16/21 22:59 06:59 14:59 Intake Total 200 300 Output Total 550 Balance -350 300 Intake: Oral 200 300 Output: Urine 550 Other: Weight 238.3 kg - Constitutional General appearance: average body habitus, disheveled, morbidly obese - EENT Eyes: EOMI, PERRLA ENT: thrush Ears: bilateral: normal - Neck Neck: normal ROM Carotids: bilateral: upstroke normal - Respiratory Respiratory: bilateral: wheezing - Cardiovascular Rhythm: regular Heart sounds: normal: S1, S2 - Gastrointestinal General gastrointestinal: normal bowel sounds, soft - Integumentary Integumentary: normal turgor - Neurologic Neurologic: CNII-XII intact - Musculoskeletal Musculoskeletal: gait normal, generalized weakness, strength equal bilaterally - Psychiatric Psychiatric: A&O x's 3, appropriate affect, intact judgment & insight Results - Laboratory Findings CBC and BMP: 12/15/21 08:49 12/15/21 08:49 PT/INR, D-dimer PT 11.5 sec (9.0-12.0) 12/15/21 08:49 INR 1.1 (<1.2) 12/15/21 08:49 Abnormal lab findings: Abnormal Labs 12/15/21 12/15/21 12/15/21 08:49 08:49 19:11 Lymphocytes # 0.9 L Sodium 134 L Chloride 96 L Glucose 134 H POC Glucose (mg/dL) 288 H 12/16/21 07:02 Lymphocytes # Sodium Chloride Glucose POC Glucose (mg/dL) 190 H - Diagnostic Findings Chest x-ray: report reviewed, image reviewed (Finding as noted above) Assessment and Plan Assessment: Right-sided pneumonia likely community-acquired continue IV Rocephin we will add Zithromax as well by mouth Acute on chronic hypoxic respiratory failure Acute COPD exacerbation Oral thrush Uncontrolled diabetes with hyperglycemia Hypertension hypertensive cardiovascular disease Coronary artery disease status post a stent Dyslipidemia Prior history of TX in the past Plan: Continue bronchodilators Continue supplemental oxygen IV Rocephin Oral Zithromax Oral nystatin swish and swallow Deep breathing sense incentive spirometry Continue home medications Further plan of care as per clinical response of the patient Time with Patient: Greater than 30
[2021-12-16 10:38] LABS: African American GFR (CKD) 66 (>60 ml/min/1.73 sqM); Anion Gap 10 mmol/L; Blood Urea Nitrogen 23 mg/dL (9-20); Calcium 9.3 mg/dL (8.4-10.2); Carbon Dioxide 24 mmol/L (22-30); Chloride 103 mmol/L (98-107); Glucose 207 mg/dL (74-99); Magnesium 1.8 mg/dL (1.6-2.3); Non-African American GFR(CKD) 58 (>60 ml/min/1.73 sqM); Potassium 3.8 mmol/L (3.5-5.1); Sodium 137 mmol/L (137-145)
[2021-12-16] MEDS: AZITHROMYCIN 500 MG TAB PO SCH (11:00)
[2021-12-16 11:37] LABS: Glucose,Whole Blood 252 mg/dL (70-110)
[2021-12-16] MEDS: NYSTATIN 100,000 UNIT/ML SUSP 500,000 UNIT/5 ML CUP PO SCH ×3 (12:08→21:59)
[2021-12-16 16:26] LABS: Glucose,Whole Blood 247 mg/dL (70-110)
[2021-12-16] MEDS: ATORVASTATIN 40 MG TAB PO SCH (16:57)
[2021-12-16] MEDS: TAMSULOSIN 0.4 MG CAP.ER.24H PO SCH (16:57)
[2021-12-16] MEDS ORDERED: DEXTROSE 50% SYRINGE 50 ML IVP PRN ×2 (19:46)
--- NOTE | 2021-12-16 19:46 | P.PN ---
Subjective Progress Note Date: 12/16/21 This is a 76-year-old male who was recently admitted for increasing shortness of breath and COPD exacerbation. Patient reports he has had a cough and increasing shortness of breath over the last week that had progressively gotten worse and came here for further evaluation and treatment. Patient does have nebulizer at home although reports this was not helping. Patient is being monitored by pulmonary Dr. Perea and is continued on bronchodilators, IV steroids, IV abx, oral abx, and oral nystatin. Patient continues to be short of breath requiring oxygen and reports he has used oxygen as needed in the outpatient setting. Patient is afebrile and denies chest pain or shortness of breath. Patient is tolerating diet and recommend to continue with accuchecks achs and is continued on metformin. will add sliding scale. Encouraged increased activity as tolerated and elevating lower extremities while at rest. Review of systems: Constitutional: No reports of fatigue, fever, or chills Cardiovascular: No reports of chest pain or palpitations Respiratory: reports of shortness of breath and cough GI: no reports of nausea, no reports of of vomiting : No reports of dysuria or retention Neurovascular: no reports of generalized weakness All medications have been reviewed Active Medications Acetaminophen (Acetaminophen Tab 325 Mg Tab) 650 mg PO Q4HR PRN PRN Reason: Mild Pain or Fever > 100.5 Albuterol/Ipratropium (Ipratropium-Albuterol 3 Ml Neb) 3 ml INHALATION RT-Q2H PRN PRN Reason: Shortness Of Breath Or Wheezing Albuterol/Ipratropium (Ipratropium-Albuterol 3 Ml Neb) 3 ml INHALATION RT-Q4H [facility] Last Admin: 12/16/21 19:34 Dose: 3 ml Allopurinol (Allopurinol 100 Mg Tab) 100 mg PO DAILY [facility] Last Admin: 12/16/21 07:48 Dose: 100 mg Alprazolam (Alprazolam 0.25 Mg Tab) 0.25 mg PO TID PRN PRN Reason: Anxiety Ascorbic Acid (Ascorbic Acid 500 Mg Tab) 500 mg PO DAILY [facility] Last Admin: 12/16/21 07:47 Dose: 500 mg Aspirin (Aspirin 81 Mg) 81 mg PO DAILY [facility] Last Admin: 12/16/21 07:48 Dose: 81 mg Atorvastatin Calcium (Atorvastatin 40 Mg Tab) 40 mg PO W/SUPPER [facility] Last Admin: 12/16/21 16:57 Dose: 40 mg Azithromycin (Azithromycin 500 Mg Tab) 500 mg PO DAILY [facility]; Protocol Stop: 12/18/21 09:01 Last Admin: 12/16/21 11:00 Dose: 500 mg Budesonide (Budesonide 1 Mg/2 Ml Nebu) 1 mg INHALATION RT-BID [facility] Last Admin: 12/16/21 19:34 Dose: 1 mg Cholecalciferol (Cholecalciferol 25 Mcg (1000 Iu) Tablet) 25 mcg PO DAILY [facility] Last Admin: 12/16/21 07:48 Dose: 25 mcg Fluticasone Propionate (Fluticasone 50mcg/[place]on Nasal 16gm) 2 spray EA NOSTRIL DAILY PRN PRN Reason: Congestion Formoterol Fumarate (Formoterol Fumarate 20 Mcg/2 Ml Nebu) 20 mcg INHALATION RT-BID [facility] Last Admin: 12/16/21 19:34 Dose: 20 mcg Furosemide (Furosemide 10 Mg/Ml 4 Ml Vial) 40 mg IV DAILY [facility] Last Admin: 12/16/21 07:56 Dose: 40 mg Heparin Sodium (Porcine) (Heparin Sodium,Porcine/Pf 5,000 Unit/0.5 Ml Syringe) 5,000 unit SQ Q12HR [facility] Last Admin: 12/16/21 07:51 Dose: 5,000 unit Ceftriaxone Sodium 1 gm/ (Sodium Chloride) 50 mls @ 100 mls/hr IVPB Q24HR [facility]; Protocol Last Admin: 12/16/21 08:12 Dose: 100 mls/hr Lisinopril (Lisinopril 10 Mg Tab) 10 mg PO DAILY [facility] Last Admin: 12/16/21 07:47 Dose: 10 mg Loratadine (Loratadine 10 Mg Tab) 10 mg PO DAILY [facility] Last Admin: 12/16/21 07:47 Dose: 10 mg Metformin HCl (Metformin 500 Mg Tab) 500 mg PO BID [facility] Last Admin: 12/16/21 07:48 Dose: 500 mg Methylprednisolone Sodium Succinate (Methylprednisolone Sod Succi 125 Mg/2 Ml Vial) 60 mg IV Q6HR [facility] Last Admin: 12/16/21 16:57 Dose: 60 mg Metoprolol Succinate (Metoprolol Succinate (Er) 50 Mg Tab.Er.24h) 50 mg PO DAILY [facility] Last Admin: 12/16/21 07:47 Dose: 50 mg Montelukast Sodium (Montelukast 10 Mg Tab) 10 mg PO HS [facility] Last Admin: 12/15/21 21:45 Dose: 10 mg Multivitamins (Multivitamins, Thera 1 Each Tab) 1 each PO DAILY [facility] Last Admin: 12/16/21 07:47 Dose: 1 each Naloxone HCl (Naloxone 0.4 Mg/Ml 1 Ml Vial) 0.2 mg IVP Q2M PRN PRN Reason: Opioid Reversal Nystatin (Nystatin 100,000 Unit/Ml Susp 500,000 Unit/5 Ml Cup) 500,000 unit PO QID [facility]; Protocol Last Admin: 12/16/21 16:57 Dose: 500,000 unit Pantoprazole Sodium (Pantoprazole 40 Mg Tablet) 40 mg PO DAILY@0730 [facility] Last Admin: 12/16/21 07:47 Dose: 40 mg Tamsulosin HCl (Tamsulosin 0.4 Mg Cap.Er.24h) 0.4 mg PO W/SUPPER [facility] Last Admin: 12/16/21 16:57 Dose: 0.4 mg Zinc Sulfate (Zinc Sulfate 220 Mg Cap) 220 mg PO DAILY [facility] Last Admin: 12/16/21 07:48 Dose: 220 mg PHYSICAL EXAMINATION: GENERAL: The patient is alert and oriented x4, Well developed, well nourished. HEENT: Pupils are round and equally reacting to light. EOMI. no scleral icterus. No conjunctival pallor. Normocephalic, atraumatic. No pharyngeal erythema. No t hyromegaly. CARDIOVASCULAR: S1 and S2 muffled PULMONARY: diminished breath sounds bilaterally with scattered wheezing and some crackles noted. ABDOMEN: soft. Nontender on exam. obese. non-distended, normoactive bowel sounds. No palpable organomegaly. MUSCULOSKELETAL: No joint swelling or deformity. EXTREMITIES: No cyanosis, clubbing, or bilateral 1-2+ pitting pedal edema noted NEUROLOGICAL: Gross neurological examination did not reveal any focal deficits. SKIN: No rashes. Assessment: Chronic obstructive pulmonary disease, acute exacerbation with acute right lower lobe pneumonia Diabetes mellitus type 2, uncontrolled with hyperglycemia History of coronary artery disease Multiple medical issues GI prophylaxis DVT prophylaxis Full code Plan: Recommend to continue with current medications and management with pulmonary Dr. Perea following. Patient is maintained on IV steroids along with antibiotics and breathing inhalational treatments and will continue. Patient currently req uiring oxygen and reports he uses it as needed in the outpatient setting. Patient also continues with some lower extremity more so pedal edema and encourage the patient to continue elevating lower extremity throughout rest and will add Eloy wraps to bilateral lower extremities including the foot at the toes up to the knees. Will continue IV lasix. Recommend accuchecks achs and will add sliding scale. Recommend repeat labs and follow-up chest x-ray in a.m. Due to multiple complex medical issues, prognosis is guarded. The impression and plan of care has been dictated by Namita Chavarria, nurse practitioner as directed. MD Jagdish I have performed a history and examination and MDM of this patient, discussed the same with the dictator, and agree with the dictator's assessment and plan as written ,documented as a scribe. Based on total visit time, I have performed more than 50% of the visit. Any additional findings or plans will be noted. Objective - Vital Signs Vital signs: Vital Signs Temp 98 F 12/16/21 08:00 Pulse 76 12/16/21 09:02 Resp 24 12/16/21 09:02 BP 112/72 12/16/21 08:00 Pulse Ox 96 12/16/21 08:29 FiO2 Intake & Output 12/15/21 12/16/21 12/16/21 18:59 06:59 18:59 Intake Total 200 300 Output Total 550 Balance -350 300 Weight 108.862 kg 238.3 kg Intake: Oral 200 300 Output: Urine 550 - Labs CBC & Chem 7: 12/15/21 08:49 12/16/21 09:52 Labs: Abnormal Lab Results - Last 24 Hours (Table) 12/15/21 12/16/21 Range/Units 19:11 07:02 POC Glucose (mg/dL) 288 H 190 H (70-110) mg/dL
[2021-12-16] MEDS: INSULIN ASPART (NovoLOG) 100 UNIT/ML VIAL SQ SCH (21:58)
[2021-12-16] MEDS: MONTELUKAST 10 MG TAB PO SCH (21:59)
[2021-12-17] MEDS: IPRATROPIUM-ALBUTEROL 3 ML NEB INHALATION SCH ×6 (00:06→20:43)
[2021-12-17] MEDS: methylPREDNISolone SOD SUCCI 125 MG/2 ML VIAL IV SCH ×2 (00:14→05:40)
[2021-12-17 07:15] LABS: Basophils % (A) 0 %; Eosinophils % (A) 0 %; HCT 43.6 % (39.0-53.0); HGB 14.1 gm/dL (13.0-17.5); Lymphocytes # (A) 0.7 k/uL (1.0-4.8); Lymphocytes % (A) 6 %; MCH 30.6 pg (25.0-35.0); MCHC 32.5 g/dL (31.0-37.0); MCV 94.3 fL (80.0-100.0); Mean Platelet Volume 7.3; Monocytes # (A) 0.3 k/uL (0-1.0); Monocytes % (A) 3 %; Neutrophils # (A) 9.3 k/uL (1.3-7.7); Neutrophils % (A) 90 %; Platelet Count 168 k/uL (150-450); RBC 4.62 m/uL (4.30-5.90); RDW 13.8 % (11.5-15.5); WBC 10.3 k/uL (3.8-10.6)
[2021-12-17 07:47] LABS: African American GFR (CKD) 88 (>60 ml/min/1.73 sqM); Anion Gap 8 mmol/L; Blood Urea Nitrogen 25 mg/dL (9-20); Calcium 9.1 mg/dL (8.4-10.2); Carbon Dioxide 26 mmol/L (22-30); Chloride 104 mmol/L (98-107); Glucose 200 mg/dL (74-99); Non-African American GFR(CKD) 76 (>60 ml/min/1.73 sqM); Potassium 4.2 mmol/L (3.5-5.1); Sodium 138 mmol/L (137-145)
[2021-12-17] MEDS: BUDESONIDE 1 MG/2 ML NEBU INHALATION SCH ×2 (07:55→20:43)
[2021-12-17] MEDS: FORMOTEROL FUMARATE 20 MCG/2 ML NEBU INHALATION SCH ×2 (07:55→20:43)
[2021-12-17 08:04] LABS: Magnesium 1.8 mg/dL (1.6-2.3)
[2021-12-17 08:49] LABS: Glucose,Whole Blood 238 mg/dL (70-110)
[2021-12-17] MEDS: FUROSEMIDE 10 MG/ML 4 ML VIAL IV SCH ×2 (08:49→16:35)
[2021-12-17] MEDS: INSULIN ASPART (NovoLOG) 100 UNIT/ML VIAL SQ SCH ×4 (08:58→21:33)
[2021-12-17] MEDS: LORATADINE 10 MG TAB PO SCH (09:16)
[2021-12-17] MEDS: ASCORBIC ACID 500 MG TAB PO SCH (09:16)
[2021-12-17] MEDS: allopurinoL 100 MG TAB PO SCH (09:16)
[2021-12-17] MEDS: PANTOPRAZOLE 40 MG TABLET PO SCH (09:16)
[2021-12-17] MEDS: ZINC SULFATE 220 MG CAP PO SCH (09:16)
[2021-12-17] MEDS: METOPROLOL SUCCINATE (ER) 50 MG TAB.ER.24H PO SCH (09:16)
[2021-12-17] MEDS: ASPIRIN 81 MG PO SCH (09:16)
[2021-12-17] MEDS: lisinopriL 10 MG TAB PO SCH (09:16)
[2021-12-17] MEDS: MULTIVITAMINS, THERA 1 EACH TAB PO SCH (09:16)
[2021-12-17] MEDS: CHOLECALCIFEROL 25 MCG (1000 IU) TABLET PO SCH (09:16)
[2021-12-17] MEDS: AZITHROMYCIN 500 MG TAB PO SCH (09:16)
[2021-12-17] MEDS: metFORMIN 500 MG TAB PO SCH ×2 (09:17→21:32)
[2021-12-17] MEDS: NYSTATIN 100,000 UNIT/ML SUSP 500,000 UNIT/5 ML CUP PO SCH ×4 (09:17→22:08)
--- NOTE | 2021-12-17 09:42 | P.PN ---
Subjective Progress Note Date: 12/17/21 Principal diagnosis: Right-sided pneumonia likely community-acquired continue IV Rocephin we will add Zithromax as well by mouth Acute on chronic hypoxic respiratory failure Acute COPD exacerbation Oral thrush Uncontrolled diabetes with hyperglycemia Hypertension hypertensive cardiovascular disease Coronary artery disease status post a stent Dyslipidemia Prior history of MT in the past 12/17/2021, patient seen eval reexamined during the rounds labs reviewed medications reviewed care plan discussed, respiratory status slightly improved now less cough and congested patient able to sleep better, remains afebrile hemodynamic status stable oxygen saturation 94% on 2 L/m oxygen, blood cultures have been negative, patient remains on IV steroids breathing treatments and bronchodilator along with broad spectrum antibiotics, 76-year-old male with prior history of smoking one to 2 packs per day quit about 5 years ago 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 His other active medical problems include coronary artery disease and angina type 2 diabetes mellitus GERD history of MT and GI bleed he uses 2 L oxygen he also has a history of rectal fissure he had a "infection in August 2020 he had 3 stents last and was placed in 2005 he has been evaluated for sleep disorder breathing and sleep apnea not to find sig nificant sleep disorder. On arrival his chest x-ray consistent with COPD along with patchy bilateral infiltrate mostly in right mid and lower lung field suggestive of pneumonia. Covert testing is negative, BNP is less than 500 (within normal limit lactic acid is 1.9 blood glucose is 288 and 190. Currently he is on DuoNeb 4 times a day along with continuation of his home medications also on Pulmicort 2 times a day. Patient is also on Rocephin 1 g daily along with Solu-Medrol 60 IV every 6 feeling little bit better but still feeling scratchy throat he has prior history of thrush in the past and responded to nystatin swish and swallow Objective - Vital Signs Vital signs: Vital Signs Temp 97.6 F 12/17/21 08:00 Pulse 92 12/17/21 08:19 Resp 18 12/17/21 08:00 BP 127/69 12/17/21 08:00 Pulse Ox 94 L 12/17/21 08:00 FiO2 Intake & Output 12/16/21 12/17/21 12/17/21 18:59 06:59 18:59 Intake Total 600 Output Total 600 Balance 0 Weight 238.3 kg 109.7 kg Intake: Oral 600 Output: Urine 600 Other: Voiding Method Urinal - Exam - Constitutional General appearance: average body habitus, disheveled, morbidly obese - EENT Eyes: EOMI, PERRLA ENT: thrush Ears: bilateral: normal - Neck Neck: normal ROM Carotids: bilateral: upstroke normal - Respiratory Respiratory: bilateral: wheezing - Cardiovascular Rhythm: regular Heart sounds: normal: S1, S2 - Gastrointestinal General gastrointestinal: normal bowel sounds, soft - Integumentary Integumentary: normal turgor - Neurologic Neurologic: CNII-XII intact - Musculoskeletal Musculoskeletal: gait normal, generalized weakness, strength equal bilaterally - Psychiatric Psychiatric: A&O x's 3, appropriate affect, intact judgment & insight - Labs CBC & Chem 7: 12/17/21 06:22 12/17/21 06:22 Labs: Abnormal Lab Results - Last 24 Hours (Table) 12/16/21 12/16/21 12/16/21 Range/Units 09:52 11:33 16:24 Neutrophils # (1.3-7.7) k/uL Lymphocytes # (1.0-4.8) k/uL BUN 23 H (9-20) mg/dL Glucose 207 H (74-99) mg/dL POC Glucose (mg/dL) 252 H 247 H (70-110) mg/dL Hemoglobin A1c (0.0-6.0) % 12/16/21 12/17/21 12/17/21 Range/Units 20:11 06:22 06:22 Neutrophils # 9.3 H (1.3-7.7) k/uL Lymphocytes # 0.7 L (1.0-4.8) k/uL BUN 25 H (9-20) mg/dL Glucose 200 H (74-99) mg/dL POC Glucose (mg/dL) (70-110) mg/dL Hemoglobin A1c 6.6 H (0.0-6.0) % 12/17/21 Range/Units 08:48 Neutrophils # (1.3-7.7) k/uL Lymphocytes # (1.0-4.8) k/uL BUN (9-20) mg/dL Glucose (74-99) mg/dL POC Glucose (mg/dL) 238 H (70-110) mg/dL Hemoglobin A1c (0.0-6.0) % Microbiology - Last 24 Hours (Table) 12/15/21 10:17 Blood Culture - Preliminary Blood No Growth after 24 hours 12/15/21 10:17 Blood Culture - Preliminary Blood No Growth after 24 hours Assessment and Plan Assessment: Right-sided pneumonia likely community-acquired continue IV Rocephin we will add Zithromax as well by mouth Acute on chronic hypoxic respiratory failure Acute COPD exacerbation Oral thrush Uncontrolled diabetes with hyperglycemia Hypertension hypertensive cardiovascular disease Coronary artery disease status post a stent Dyslipidemia Prior history of MT in the past Plan: Continue bronchodilators Continue supplemental oxygen IV Rocephin, hopefully oral prior to discharge early next week Oral Zithromax Oral nystatin swish and swallow Deep breathing sense incentive spirometry Continue home medications Start titrating his steroids down hopefully changed to oral prior to discharge early next week Further plan of care as per clinical response of the patient Time with Patient: Greater than 30
[2021-12-17] MEDS: HEPARIN SODIUM,PORCINE/PF 5,000 UNIT/0.5 ML SYRINGE SQ SCH ×2 (10:07→21:33)
[2021-12-17 11:52] LABS: Glucose,Whole Blood 321 mg/dL (70-110)
[2021-12-17 15:59] LABS: Glucose,Whole Blood 183 mg/dL (70-110)
--- NOTE | 2021-12-17 16:15 | P.PN ---
Subjective Progress Note Date: 12/17/21 This is a 76-year-old male who was recently admitted for increasing shortness of breath and COPD exacerbation. Patient reports he has had a cough and increasing shortness of breath over the last week that had progressively gotten worse and came here for further evaluation and treatment. Patient does have nebulizer at home although reports this was not helping. Patient is being monitored by pulmonary Dr. Perea and is continued on bronchodilators, IV steroids, IV abx, oral abx, and oral nystatin. Patient continues to be short of breath requiring oxygen and reports he has used oxygen as needed in the outpatient setting. Patient is afebrile and denies chest pain or shortness of breath. Patient is tolerating diet and recommend to continue with accuchecks achs and is continued on metformin. will add sliding scale. Encouraged increased activity as tolerated and elevating lower extremities while at rest. 12/17/2021 Patient is seen today in follow up and continues with shortness of breath and is being followed with Dr. Perea pulmonary. Patient continues on IV steroids and being titrated. Patient continues on duonebs and IV abx along with IV lasix and will continue. Continued lower extremity and will increase lasix to BID and repeat am labs. Recommend to continue monitoring accuchecks achs and sliding scale. Patient is afebrile and denies chest pains. Recommend to continue with nystatin swish and swallow as well. Review of systems: Constitutional: No reports of fatigue, fever, or chills Cardiovascular: No reports of chest pain or palpitations Respiratory: reports of shortness of breath and cough GI: no reports of nausea, no reports of of vomiting : No reports of dysuria or retention Neurovascular: no reports of generalized weakness, reports continued lower extremity swelling All medications have been reviewed Active Medications Acetaminophen (Acetaminophen Tab 325 Mg Tab) 650 mg PO Q4HR PRN PRN Reason: Mild Pain or Fever > 100.5 Albuterol/Ipratropium (Ipratropium-Albuterol 3 Ml Neb) 3 ml INHALATION RT-Q2H PRN PRN Reason: Shortness Of Breath Or Wheezing Last Admin: 12/17/21 02:09 Dose: 3 ml Albuterol/Ipratropium (Ipratropium-Albuterol 3 Ml Neb) 3 ml INHALATION RT-Q4H [facility] Last Admin: 12/17/21 11:48 Dose: 3 ml Allopurinol (Allopurinol 100 Mg Tab) 100 mg PO DAILY [facility] Last Admin: 12/17/21 09:16 Dose: 100 mg Alprazolam (Alprazolam 0.25 Mg Tab) 0.25 mg PO TID PRN PRN Reason: Anxiety Ascorbic Acid (Ascorbic Acid 500 Mg Tab) 500 mg PO DAILY [facility] Last Admin: 12/17/21 09:16 Dose: 500 mg Aspirin (Aspirin 81 Mg) 81 mg PO DAILY [facility] Last Admin: 12/17/21 09:16 Dose: 81 mg Atorvastatin Calcium (Atorvastatin 40 Mg Tab) 40 mg PO W/SUPPER [facility] Last Admin: 12/16/21 16:57 Dose: 40 mg Azithromycin (Azithromycin 500 Mg Tab) 500 mg PO DAILY [facility]; Protocol Stop: 12/18/21 09:01 Last Admin: 12/17/21 09:16 Dose: 500 mg Budesonide (Budesonide 1 Mg/2 Ml Nebu) 1 mg INHALATION RT-BID [facility] Last Admin: 12/17/21 07:55 Dose: 1 mg Cholecalciferol (Cholecalciferol 25 Mcg (1000 Iu) Tablet) 25 mcg PO DAILY [facility] Last Admin: 12/17/21 09:16 Dose: 25 mcg Dextrose/Water (Dextrose 50% Syringe 50 Ml) 25 ml IVP PER PROTOCOL PRN; Protocol PRN Reason: Hypoglycemia Dextrose/Water (Dextrose 50% Syringe 50 Ml) 50 ml IVP PER PROTOCOL PRN; Protocol PRN Reason: Hypoglycemia Fluticasone Propionate (Fluticasone 50mcg/Dunbar Nasal 16gm) 2 spray EA NOSTRIL DAILY PRN PRN Reason: Congestion Last Admin: 12/17/21 06:12 Dose: 2 spray Formoterol Fumarate (Formoterol Fumarate 20 Mcg/2 Ml Nebu) 20 mcg INHALATION RT-BID [facility] Last Admin: 12/17/21 07:55 Dose: 20 mcg Furosemide (Furosemide 10 Mg/Ml 4 Ml Vial) 40 mg IV DAILY [facility] Last Admin: 12/17/21 08:49 Dose: 40 mg Heparin Sodium (Porcine) (Heparin Sodium,Porcine/Pf 5,000 Unit/0.5 Ml Syringe) 5,000 unit SQ Q12HR [facility] Last Admin: 12/17/21 10:07 Dose: 5,000 unit Ceftriaxone Sodium 1 gm/ (Sodium Chloride) 50 mls @ 100 mls/hr IVPB Q24HR [facility]; Protocol Last Admin: 12/17/21 10:06 Dose: 100 mls/hr Insulin Aspart (Insulin Aspart (Novolog) 100 Unit/Ml Vial) 0 unit SQ ACHS [facility]; Protocol Last Admin: 12/17/21 12:13 Dose: 8 unit Lisinopril (Lisinopril 10 Mg Tab) 10 mg PO DAILY [facility] Last Admin: 12/17/21 09:16 Dose: 10 mg Loratadine (Loratadine 10 Mg Tab) 10 mg PO DAILY [facility] Last Admin: 12/17/21 09:16 Dose: 10 mg Metformin HCl (Metformin 500 Mg Tab) 500 mg PO BID [facility] Last Admin: 12/17/21 09:17 Dose: 500 mg Methylprednisolone Sodium Succinate (Methylprednisolone Sod Succi 40 Mg/Ml 1 Ml Vial) 40 mg IV Q12HR [facility] Metoprolol Succinate (Metoprolol Succinate (Er) 50 Mg Tab.Er.24h) 50 mg PO DAILY [facility] Last Admin: 12/17/21 09:16 Dose: 50 mg Montelukast Sodium (Montelukast 10 Mg Tab) 10 mg PO HS [facility] Last Admin: 12/16/21 21:59 Dose: 10 mg Multivitamins (Multivitamins, Thera 1 Each Tab) 1 each PO DAILY [facility] Last Admin: 12/17/21 09:16 Dose: 1 each Naloxone HCl (Naloxone 0.4 Mg/Ml 1 Ml Vial) 0.2 mg IVP Q2M PRN PRN Reason: Opioid Reversal Nystatin (Nystatin 100,000 Unit/Ml Susp 500,000 Unit/5 Ml Cup) 500,000 unit PO QID [facility]; Protocol Last Admin: 12/17/21 12:13 Dose: 500,000 unit Pantoprazole Sodium (Pantoprazole 40 Mg Tablet) 40 mg PO DAILY@0730 [facility] Last Admin: 12/17/21 09:16 Dose: 40 mg Tamsulosin HCl (Tamsulosin 0.4 Mg Cap.Er.24h) 0.4 mg PO W/SUPPER [facility] Last Admin: 12/16/21 16:57 Dose: 0.4 mg Zinc Sulfate (Zinc Sulfate 220 Mg Cap) 220 mg PO DAILY [facility] Last Admin: 12/17/21 09:16 Dose: 220 mg PHYSICAL EXAMINATION: GENERAL: The patient is alert and oriented x4, Well developed, well nourished. HEENT: Pupils are round and equally reacting to light. EOMI. no scleral icterus. No conjunctival pallor. Normocephalic, atraumatic. No pharyngeal erythema. No thyromegaly. CARDIOVASCULAR: S1 and S2 muffled PULMONARY: diminished breath sounds bilaterally with scattered wheezing and some crackles noted. ABDOMEN: soft. Nontender on exam. obese. non-distended, normoactive bowel sounds. No palpable organomegaly. MUSCULOSKELETAL: No joint swelling or deformity. EXTREMITIES: No cyanosis, clubbing, bilateral 1-2+ pitting pedal edema noted NEUROLOGICAL: Gross neurological examination did not reveal any focal deficits. SKIN: No rashes. Assessment: Chronic obstructive pulmonary disease, acute exacerbation with acute right lower lobe pneumonia Diabetes mellitus type 2, uncontrolled with hyperglycemia History of coronary artery disease Multiple medical issues GI prophylaxis DVT prophylaxis Full code Plan: Recommend to continue with current medications and management with pulmonary Dr. Perea following. Patient is maintained on IV steroids along with antibiotics and breathing inhalational treatments and will continue. Patient currently requiring oxygen at 2L via [place]. Patient also continues with some lower extremity more so pedal edema and encourage the patient to continue elevating lower extremity and will order compression stockings. Labs reviewed and kidney functions stable. Will increase IV lasix to BID. Recommend accuchecks achs and continue with sliding scale. Recommend repeat labs and follow-up chest x-ray in a.m. Due to multiple complex medical issues, prognosis is guarded. The impression and plan of care has been dictated as a scribe by Namita Chavarria, nurse practitioner as directed. MD Jagdish I have performed a history and examination and MDM of this patient, discussed the same with the dictator and has been documented as a scribe. Based on total visit time, I have performed more than 50% of the visit. Objective - Vital Signs Vital signs: Vital Signs Temp 97.6 F 12/17/21 08:00 Pulse 92 12/17/21 08:19 Resp 18 12/17/21 08:00 BP 127/69 12/17/21 08:00 Pulse Ox 94 L 12/17/21 08:00 FiO2 Intake & Output 12/16/21 12/17/21 12/17/21 18:59 06:59 18:59 Intake Total 600 Output Total 600 Balance 0 Weight 238.3 kg 109.7 kg Intake: Oral 600 Output: Urine 600 Other: Voiding Method Urinal - Labs CBC & Chem 7: 12/17/21 06:22 12/17/21 06:22 Labs: Abnormal Lab Results - Last 24 Hours (Table) 12/16/21 12/16/21 12/16/21 Range/Units 09:52 11:33 16:24 Neutrophils # (1.3-7.7) k/uL Lymphocytes # (1.0-4.8) k/uL BUN 23 H (9-20) mg/dL Glucose 207 H (74-99) mg/dL POC Glucose (mg/dL) 252 H 247 H (70-110) mg/dL Hemoglobin A1c (0.0-6.0) % 12/16/21 12/17/21 12/17/21 Range/Units 20:11 06:22 06:22 Neutrophils # 9.3 H (1.3-7.7) k/uL Lymphocytes # 0.7 L (1.0-4.8) k/uL BUN 25 H (9-20) mg/dL Glucose 200 H (74-99) mg/dL POC Glucose (mg/dL) (70-110) mg/dL Hemoglobin A1c 6.6 H (0.0-6.0) % 12/17/21 Range/Units 08:48 Neutrophils # (1.3-7.7) k/uL Lymphocytes # (1.0-4.8) k/uL BUN (9-20) mg/dL Glucose (74-99) mg/dL POC Glucose (mg/dL) 238 H (70-110) mg/dL Hemoglobin A1c (0.0-6.0) % Microbiology - Last 24 Hours (Table) 12/15/21 10:17 Blood Culture - Preliminary Blood No Growth after 24 hours 12/15/21 10:17 Blood Culture - Preliminary Blood No Growth after 24 hours
[2021-12-17] MEDS: TAMSULOSIN 0.4 MG CAP.ER.24H PO SCH (16:35)
[2021-12-17] MEDS: ATORVASTATIN 40 MG TAB PO SCH (16:35)
[2021-12-17] MEDS: polyethylene glycoL 3350 17 GM POWD.PACK PO SCH (17:46)
[2021-12-17 19:57] LABS: Glucose,Whole Blood 242 mg/dL (70-110)
[2021-12-17] MEDS: MONTELUKAST 10 MG TAB PO SCH (21:32)
[2021-12-17] MEDS: methylPREDNISolone SOD SUCCI 40 MG/ML 1 ML VIAL IV SCH (21:50)
[2021-12-18] MEDS: IPRATROPIUM-ALBUTEROL 3 ML NEB INHALATION SCH ×7 (00:38→23:50)
[2021-12-18 07:19] LABS: Glucose,Whole Blood 180 mg/dL (70-110)
[2021-12-18] MEDS: FORMOTEROL FUMARATE 20 MCG/2 ML NEBU INHALATION SCH ×2 (07:21→20:52)
[2021-12-18] MEDS: BUDESONIDE 1 MG/2 ML NEBU INHALATION SCH ×2 (07:21→20:52)
--- NOTE | 2021-12-18 07:43 | XR ---
EXAMINATION TYPE: XR chest 1V portable DATE OF EXAM: 12/18/2021 COMPARISON: 12/15/2021 INDICATION: Short of breath TECHNIQUE: Frontal view of the chest are obtained. FINDINGS: The heart size is normal. The pulmonary vasculature is normal. There is developing nonspecific right lower lobe infiltrate. Correlate for atelectasis or pneumonia. Follow-up is recommended.. IMPRESSION: 1. Developing right lower lung field infiltrate. Correlate for atelectasis or pneumonia. Follow-up is recommended.
[2021-12-18] MEDS: allopurinoL 100 MG TAB PO SCH (08:17)
[2021-12-18] MEDS: ASPIRIN 81 MG PO SCH (08:17)
[2021-12-18] MEDS: polyethylene glycoL 3350 17 GM POWD.PACK PO SCH (08:17)
[2021-12-18] MEDS: PANTOPRAZOLE 40 MG TABLET PO SCH (08:17)
[2021-12-18] MEDS: INSULIN ASPART (NovoLOG) 100 UNIT/ML VIAL SQ SCH ×4 (08:17→22:34)
[2021-12-18] MEDS: ASCORBIC ACID 500 MG TAB PO SCH (08:18)
[2021-12-18] MEDS: MULTIVITAMINS, THERA 1 EACH TAB PO SCH (08:18)
[2021-12-18] MEDS: AZITHROMYCIN 500 MG TAB PO SCH (08:18)
[2021-12-18] MEDS: ZINC SULFATE 220 MG CAP PO SCH (08:18)
[2021-12-18] MEDS: CHOLECALCIFEROL 25 MCG (1000 IU) TABLET PO SCH (08:18)
[2021-12-18] MEDS: NYSTATIN 100,000 UNIT/ML SUSP 500,000 UNIT/5 ML CUP PO SCH ×4 (08:19→22:33)
[2021-12-18] MEDS: FUROSEMIDE 10 MG/ML 4 ML VIAL IV SCH ×2 (08:19→17:12)
[2021-12-18] MEDS: METOPROLOL SUCCINATE (ER) 50 MG TAB.ER.24H PO SCH (08:19)
[2021-12-18] MEDS: methylPREDNISolone SOD SUCCI 40 MG/ML 1 ML VIAL IV SCH ×2 (08:19→20:41)
[2021-12-18] MEDS: LORATADINE 10 MG TAB PO SCH (08:19)
[2021-12-18] MEDS: lisinopriL 10 MG TAB PO SCH (08:19)
[2021-12-18] MEDS: metFORMIN 500 MG TAB PO SCH ×2 (08:19→22:34)
[2021-12-18] MEDS: HEPARIN SODIUM,PORCINE/PF 5,000 UNIT/0.5 ML SYRINGE SQ SCH ×2 (08:19→22:33)
[2021-12-18 09:22] LABS: African American GFR (CKD) 88 (>60 ml/min/1.73 sqM); Anion Gap 6 mmol/L; Blood Urea Nitrogen 24 mg/dL (9-20); Calcium 8.9 mg/dL (8.4-10.2); Carbon Dioxide 32 mmol/L (22-30); Chloride 100 mmol/L (98-107); Glucose 271 mg/dL (74-99); Magnesium 1.7 mg/dL (1.6-2.3); Non-African American GFR(CKD) 76 (>60 ml/min/1.73 sqM); Potassium 4.4 mmol/L (3.5-5.1); Sodium 138 mmol/L (137-145)
[2021-12-18] MEDS: MAGNESIUM OXIDE 400 MG TAB PO SCH (10:04)
[2021-12-18 11:25] LABS: Glucose,Whole Blood 234 mg/dL (70-110)
[2021-12-18] MEDS ORDERED: SENNOSIDES 8.6 MG TAB PO PRN (12:04)
[2021-12-18] MEDS: DOCUSATE 100 MG CAP PO SCH ×2 (12:18→22:34)
[2021-12-18 17:05] LABS: Glucose,Whole Blood 247 mg/dL (70-110)
[2021-12-18] MEDS: TAMSULOSIN 0.4 MG CAP.ER.24H PO SCH (17:12)
[2021-12-18] MEDS: ATORVASTATIN 40 MG TAB PO SCH (17:12)
[2021-12-18 21:45] LABS: Glucose,Whole Blood 187 mg/dL (70-110)
[2021-12-18] MEDS: MONTELUKAST 10 MG TAB PO SCH (22:34)
[2021-12-19] MEDS ORDERED: ONDANSETRON 4 MG/2 ML VIAL IVP PRN (01:51)
--- NOTE | 2021-12-19 02:00 | P.PN ---
Subjective Progress Note Date: 12/18/21 This is a 76-year-old male who was recently admitted for increasing shortness of breath and COPD exacerbation. Patient reports he has had a cough and increasing shortness of breath over the last week that had progressively gotten worse and came here for further evaluation and treatment. Patient does have nebulizer at home although reports this was not helping. Patient is being monitored by pulmonary Dr. Perea and is continued on bronchodilators, IV steroids, IV abx, oral abx, and oral nystatin. Patient continues to be short of breath requiring oxygen and reports he has used oxygen as needed in the outpatient setting. Patient is afebrile and denies chest pain or shortness of breath. Patient is tolerating diet and recommend to continue with accuchecks achs and is continued on metformin. will add sliding scale. Encouraged increased activity as tolerated and elevating lower extremities while at rest. 12/17/2021 Patient is seen today in follow up and continues with shortness of breath and is being followed with Dr. Perea pulmonary. Patient continues on IV steroids and being titrated. Patient continues on duonebs and IV abx along with IV lasix and will continue. Continued lower extremity and will increase lasix to BID and repeat am labs. Recommend to continue monitoring accuchecks achs and sliding scale. Patient is afebrile and denies chest pains. Recommend to continue with nystatin swish and swallow as well. 12/18/2021 Patient is evaluated today and continues to have some shortness of breath and is currently maintained on 2L via [place]. Patient also continues on IV steroids, duonebs, IV lasix, antibiotics, and will continue. Blood sugars being monitored and will continue current regimen. Accuchecks achs. Patient with some lower extremity swelling and is tolerating compression stockings and will continue IV lasix with follow up labs. Mag is 1.7 today and will give magnesium oxide daily. Recommend increasing activity as tolerated and elevated lower extremities while at rest. Patient is afebrile and denies chest pain or palpitations. Review of systems: Constitutional: No reports of fatigue, fever, or chills Cardiovascular: No reports of chest pain or palpitations Respiratory: reports of shortness of breath and cough, but slowly improving GI: reports of occasional nausea, no reports of of vomiting : No reports of dysuria or retention Neurovascular: no reports of generalized weakness, reports continued lower extremity swelling All medications have been reviewed Active Medications Acetaminophen (Acetaminophen Tab 325 Mg Tab) 650 mg PO Q4HR PRN PRN Reason: Mild Pain or Fever > 100.5 Albuterol/Ipratropium (Ipratropium-Albuterol 3 Ml Neb) 3 ml INHALATION RT-Q2H PRN PRN Reason: Shortness Of Breath Or Wheezing Last Admin: 12/17/21 02:09 Dose: 3 ml Albuterol/Ipratropium (Ipratropium-Albuterol 3 Ml Neb) 3 ml INHALATION RT-Q4H [facility] Last Admin: 12/18/21 23:50 Dose: Not Given Allopurinol (Allopurinol 100 Mg Tab) 100 mg PO DAILY [facility] Last Admin: 12/18/21 08:17 Dose: 100 mg Alprazolam (Alprazolam 0.25 Mg Tab) 0.25 mg PO TID PRN PRN Reason: Anxiety Ascorbic Acid (Ascorbic Acid 500 Mg Tab) 500 mg PO DAILY [facility] Last Admin: 12/18/21 08:18 Dose: 500 mg Aspirin (Aspirin 81 Mg) 81 mg PO DAILY [facility] Last Admin: 12/18/21 08:17 Dose: 81 mg Atorvastatin Calcium (Atorvastatin 40 Mg Tab) 40 mg PO W/SUPPER [facility] Last Admin: 12/18/21 17:12 Dose: 40 mg Budesonide (Budesonide 1 Mg/2 Ml Nebu) 1 mg INHALATION RT-BID [facility] Last Admin: 12/18/21 20:52 Dose: Not Given Cholecalciferol (Cholecalciferol 25 Mcg (1000 Iu) Tablet) 25 mcg PO DAILY [facility] Last Admin: 12/18/21 08:18 Dose: 25 mcg Dextrose/Water (Dextrose 50% Syringe 50 Ml) 25 ml IVP PER PROTOCOL PRN; Protocol PRN Reason: Hypoglycemia Dextrose/Water (Dextrose 50% Syringe 50 Ml) 50 ml IVP PER PROTOCOL PRN; Protocol PRN Reason: Hypoglycemia Docusate Sodium (Docusate 100 Mg Cap) 100 mg PO BID [facility] Last Admin: 12/18/21 22:34 Dose: 100 mg Fluticasone Propionate (Fluticasone 50mcg/[place] Nasal 16gm) 2 spray EA NOSTRIL DAILY PRN PRN Reason: Congestion Last Admin: 12/17/21 06:12 Dose: 2 spray Formoterol Fumarate (Formoterol Fumarate 20 Mcg/2 Ml Nebu) 20 mcg INHALATION RT-BID [facility] Last Admin: 12/18/21 20:52 Dose: 20 mcg Furosemide (Furosemide 10 Mg/Ml 4 Ml Vial) 40 mg IV 0900,1700 [facility] Last Admin: 12/18/21 17:12 Dose: 40 mg Heparin Sodium (Porcine) (Heparin Sodium,Porcine/Pf 5,000 Unit/0.5 Ml Syringe) 5,000 unit SQ Q12HR [facility] Last Admin: 12/18/21 22:33 Dose: 5,000 unit Ceftriaxone Sodium 1 gm/ (Sodium Chloride) 50 mls @ 100 mls/hr IVPB Q24HR [facility]; Protocol Last Admin: 12/18/21 08:18 Dose: 100 mls/hr Insulin Aspart (Insulin Aspart (Novolog) 100 Unit/Ml Vial) 0 unit SQ ACHS [facility]; Protocol Last Admin: 12/18/21 22:34 Dose: 2 unit Lisinopril (Lisinopril 10 Mg Tab) 10 mg PO DAILY [facility] Last Admin: 12/18/21 08:19 Dose: 10 mg Loratadine (Loratadine 10 Mg Tab) 10 mg PO DAILY [facility] Last Admin: 12/18/21 08:19 Dose: 10 mg Magnesium Oxide (Magnesium Oxide 400 Mg Tab) 400 mg PO DAILY [facility] Last Admin: 12/18/21 10:04 Dose: 400 mg Metformin HCl (Metformin 500 Mg Tab) 500 mg PO BID [facility] Last Admin: 12/18/21 22:34 Dose: 500 mg Methylprednisolone Sodium Succinate (Methylprednisolone Sod Succi 40 Mg/Ml 1 Ml Vial) 40 mg IV Q12HR [facility] Last Admin: 12/18/21 20:41 Dose: 40 mg Metoprolol Succinate (Metoprolol Succinate (Er) 50 Mg Tab.Er.24h) 50 mg PO DAILY [facility] Last Admin: 12/18/21 08:19 Dose: 50 mg Montelukast Sodium (Montelukast 10 Mg Tab) 10 mg PO HS [facility] Last Admin: 12/18/21 22:34 Dose: 10 mg Multivitamins (Multivitamins, Thera 1 Each Tab) 1 each PO DAILY [facility] Last Admin: 12/18/21 08:18 Dose: 1 each Naloxone HCl (Naloxone 0.4 Mg/Ml 1 Ml Vial) 0.2 mg IVP Q2M PRN PRN Reason: Opioid Reversal Nystatin (Nystatin 100,000 Unit/Ml Susp 500,000 Unit/5 Ml Cup) 500,000 unit PO QID [facility]; Protocol Last Admin: 12/18/21 22:33 Dose: 500,000 unit Ondansetron HCl (Ondansetron 4 Mg/2 Ml Vial) 4 mg IVP Q6HR PRN PRN Reason: Nausea And Vomiting Pantoprazole Sodium (Pantoprazole 40 Mg Tablet) 40 mg PO DAILY@0730 [facility] Last Admin: 12/18/21 08:17 Dose: 40 mg Polyethylene Glycol (Polyethylene Glycol 3350 17 Gm Powd.Pack) 17 gm PO DAILY [facility] Last Admin: 12/18/21 08:17 Dose: 17 gm Senna (Sennosides 8.6 Mg Tab) 8.6 mg PO DAILY PRN PRN Reason: Constipation Tamsulosin HCl (Tamsulosin 0.4 Mg Cap.Er.24h) 0.4 mg PO W/SUPPER [facility] Last Admin: 12/18/21 17:12 Dose: 0.4 mg Zinc Sulfate (Zinc Sulfate 220 Mg Cap) 220 mg PO DAILY [facility] Last Admin: 12/18/21 08:18 Dose: 220 mg PHYSICAL EXAMINATION: GENERAL: The patient is alert and oriented x4, Well developed, well nourished. HEENT: Pupils are round and equally reacting to light. EOMI. no scleral icterus. No conjunctival pallor. Normocephalic, atraumatic. No pharyngeal erythema. No thyromegaly. CARDIOVASCULAR: S1 and S2 muffled PULMONARY: diminished breath sounds bilaterally with scattered wheezing and rhonchi noted. ABDOMEN: soft. Nontender on exam. obese. non-distended, normoactive bowel sounds. No palpable organomegaly. MUSCULOSKELETAL: No joint swelling or deformity. EXTREMITIES: No cyanosis, clubbing, bilateral 1+ pitting pedal edema noted NEUROLOGICAL: Gross neurological examination did not reveal any focal deficits. SKIN: No rashes. Assessment: Chronic obstructive pulmonary disease, acute exacerbation with acute right lower lobe pneumonia Diabetes mellitus type 2, uncontrolled with hyperglycemia History of coronary artery disease Multiple medical issues GI prophylaxis DVT prophylaxis Full code Plan: Recommend to continue with current medications and management with pulmonary Dr. Perea following. Patient is maintained on IV steroids along with antibiotics and breathing inhalational treatments and will continue. Patient currently requiring oxygen at 2L via [place]. Patient also continues with some lower extremity more so pedal edema and encourage the patient to continue elevating lower extremity and is tolerating compression stockings. Labs reviewed and kidney functions stable. Will continue IV lasix to BID with follow up labs in the am. Chest xray reviewed. Recommend accuchecks achs and continue with sliding scale. Encouraged increased activity as tolerated. Due to multiple complex medical issues, prognosis is guarded. Possible discharge in 24-48 hours. The impression and plan of care has been dictated as a scribe by Namita Chavarria, nurse practitioner as directed. MD Jagdish I have performed a history and examination and MDM of this patient, discussed the same with the dictator and has been documented as a scribe. Based on total visit time, I have performed more than 50% of the visit. Objective - Vital Signs Vital signs: Vital Signs Temp 98.4 F 12/18/21 01:05 Pulse 84 12/18/21 02:03 Resp 18 12/18/21 01:05 BP 120/58 12/18/21 01:05 Pulse Ox 91 L 12/18/21 01:05 FiO2 Intake & Output 12/17/21 12/17/21 12/18/21 06:59 18:59 06:59 Intake Total 600 Output Total 1200 800 Balance -600 -800 Weight 109.7 kg 108.9 kg Intake: Oral 600 Output: Urine 1200 800 Other: Voiding Method Urinal Urinal Urinal - Labs CBC & Chem 7: 12/17/21 06:22 12/18/21 08:42 Labs: Abnormal Lab Results - Last 24 Hours (Table) 12/17/21 12/17/21 12/17/21 Range/Units 06:22 06:22 08:48 Neutrophils # 9.3 H (1.3-7.7) k/uL Lymphocytes # 0.7 L (1.0-4.8) k/uL BUN 25 H (9-20) mg/dL Glucose 200 H (74-99) mg/dL POC Glucose (mg/dL) 238 H (70-110) mg/dL 12/17/21 12/17/21 12/17/21 Range/Units 11:50 15:58 19:54 Neutrophils # (1.3-7.7) k/uL Lymphocytes # (1.0-4.8) k/uL BUN (9-20) mg/dL Glucose (74-99) mg/dL POC Glucose (mg/dL) 321 H 183 H 242 H (70-110) mg/dL Microbiology - Last 24 Hours (Table) 12/15/21 10:17 Blood Culture - Preliminary Blood No Growth after 48 hours 12/15/21 10:17 Blood Culture - Preliminary Blood No Growth after 48 hours
[2021-12-19] MEDS: IPRATROPIUM-ALBUTEROL 3 ML NEB INHALATION SCH ×3 (02:01→11:50)
[2021-12-19 02:45] VITALS: RESP 17
[2021-12-19 06:56] LABS: Glucose,Whole Blood 183 mg/dL (70-110)
[2021-12-19 07:07] LABS: African American GFR (CKD) >90 (>60 ml/min/1.73 sqM); Anion Gap 7 mmol/L; Blood Urea Nitrogen 29 mg/dL (9-20); Calcium 9.2 mg/dL (8.4-10.2); Carbon Dioxide 29 mmol/L (22-30); Chloride 100 mmol/L (98-107); Glucose 194 mg/dL (74-99); Non-African American GFR(CKD) 84 (>60 ml/min/1.73 sqM); Sodium 136 mmol/L (137-145)
[2021-12-19 07:11] LABS: Magnesium 1.9 mg/dL (1.6-2.3); Potassium 4.7 mmol/L (3.5-5.1)
[2021-12-19 08:59] VITALS: BP 129/73; TEMP 97.9
[2021-12-19] MEDS: BUDESONIDE 1 MG/2 ML NEBU INHALATION SCH (09:43)
[2021-12-19] MEDS: FORMOTEROL FUMARATE 20 MCG/2 ML NEBU INHALATION SCH (09:43)
[2021-12-19] MEDS: FUROSEMIDE 10 MG/ML 4 ML VIAL IV SCH (09:55)
[2021-12-19] MEDS: INSULIN ASPART (NovoLOG) 100 UNIT/ML VIAL SQ SCH ×2 (09:55→12:54)
[2021-12-19] MEDS: polyethylene glycoL 3350 17 GM POWD.PACK PO SCH (09:55)
[2021-12-19] MEDS: DOCUSATE 100 MG CAP PO SCH (09:56)
[2021-12-19] MEDS: METOPROLOL SUCCINATE (ER) 50 MG TAB.ER.24H PO SCH (09:56)
[2021-12-19] MEDS: metFORMIN 500 MG TAB PO SCH (09:56)
[2021-12-19] MEDS: methylPREDNISolone SOD SUCCI 40 MG/ML 1 ML VIAL IV SCH (09:56)
[2021-12-19] MEDS: MAGNESIUM OXIDE 400 MG TAB PO SCH (09:56)
[2021-12-19] MEDS: PANTOPRAZOLE 40 MG TABLET PO SCH (09:56)
[2021-12-19] MEDS: lisinopriL 10 MG TAB PO SCH (09:56)
[2021-12-19] MEDS: LORATADINE 10 MG TAB PO SCH (09:56)
[2021-12-19] MEDS: ASPIRIN 81 MG PO SCH (09:57)
[2021-12-19] MEDS: CHOLECALCIFEROL 25 MCG (1000 IU) TABLET PO SCH (09:57)
[2021-12-19] MEDS: MULTIVITAMINS, THERA 1 EACH TAB PO SCH (09:57)
[2021-12-19] MEDS: allopurinoL 100 MG TAB PO SCH (09:57)
[2021-12-19] MEDS: ZINC SULFATE 220 MG CAP PO SCH (09:57)
[2021-12-19] MEDS: HEPARIN SODIUM,PORCINE/PF 5,000 UNIT/0.5 ML SYRINGE SQ SCH (09:58)
[2021-12-19] MEDS: NYSTATIN 100,000 UNIT/ML SUSP 500,000 UNIT/5 ML CUP PO SCH ×2 (10:01→12:54)
[2021-12-19] MEDS: ASCORBIC ACID 500 MG TAB PO SCH (10:11)
[2021-12-19 11:19] LABS: Glucose,Whole Blood 211 mg/dL (70-110)
--- NOTE | 2021-12-19 11:45 | P.PN ---
Subjective Progress Note Date: 12/19/21 Principal diagnosis: Right-sided pneumonia likely community-acquired continue IV Rocephin we will add Zithromax as well by mouth Acute on chronic hypoxic respiratory failure Acute COPD exacerbation Oral thrush Uncontrolled diabetes with hyperglycemia Hypertension hypertensive cardiovascular disease Coronary artery disease status post a stent Dyslipidemia Prior history of KS in the past 12/19/2021, patient seen eval examined during the rounds labs reviewed medications reviewed, eating better in terms of breathing able to get up and move around now less short of breath less cough and congestion, have been on steroids breathing treatment antibiotics tolerating very well, they can be switched to oral from pulmonary standpoint we'll continue to observe patient has home oxygen as well as nebulizer treatment, chest x-ray showing developing right-sided pneumonia, previous x-ray was showing patchy pneumonia clinically patient has improved, patient remains afebrile cough with clear phlegm severity of cough however has improved 12/17/2021, patient seen eval reexamined during the rounds labs reviewed medications reviewed care plan discussed, respiratory status slightly improved now less cough and congested patient able to sleep better, remains afebrile hemodynamic status stable oxygen saturation 94% on 2 L/m oxygen, blood cultures have been negative, patient remains on IV steroids breathing treatments and bronchodilator along with broad spectrum antibiotics, 76-year-old male with prior history of smoking one to 2 packs per day quit about 5 years ago 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 His other active medical problems include coronary artery disease and angina type 2 diabetes mellitus GERD history of KS and GI bleed he uses 2 L oxygen he also has a history of rectal fissure he had a "infection in August 2020 he had 3 stents last and was placed in 2005 he has been evaluated for sleep disorder breathing and sleep apnea not to find significant sleep disorder. On arrival his chest x-ray consistent with COPD along with patchy bilateral infiltrate mostly in right mid and lower lung field suggestive of pneumonia. Covert testing is negative, BNP is less than 500 (within normal limit lactic acid is 1.9 blood glucose is 288 and 190. Currently he is on DuoNeb 4 times a day along with continuation of his home medications also on Pulmicort 2 times a day. Patient is also on Rocephin 1 g daily along with Solu-Medrol 60 IV every 6 feeling little bit better but still feeling scratchy throat he has prior history of thrush in the past and responded to nystatin swish and swallow Objective - Vital Signs Vital signs: Vital Signs Temp 97.9 F 12/19/21 08:00 Pulse 67 12/19/21 10:08 Resp 17 12/19/21 08:00 BP 129/73 12/19/21 08:00 Pulse Ox 95 12/19/21 08:00 FiO2 Intake & Output 12/18/21 12/19/21 12/19/21 18:59 06:59 18:59 Intake Total 1460 Output Total 1825 1100 Balance -365 -1100 Intake: Oral 1460 Output: Urine 1825 1100 Other: Voiding Method Urinal Urinal Urinal # Voids 3 - Exam - Constitutional General appearance: average body habitus, disheveled, morbidly obese - EENT Eyes: EOMI, PERRLA ENT: thrush Ears: bilateral: normal - Neck Neck: normal ROM Carotids: bilateral: upstroke normal - Respiratory Respiratory: bilateral: wheezing - Cardiovascular Rhythm: regular Heart sounds: normal: S1, S2 - Gastrointestinal General gastrointestinal: normal bowel sounds, soft - Integumentary Integumentary: normal turgor - Neurologic Neurologic: CNII-XII intact - Musculoskeletal Musculoskeletal: gait normal, generalized weakness, strength equal bilaterally - Psychiatric Psychiatric: A&O x's 3, appropriate affect, intact judgment & insight - Labs CBC & Chem 7: 12/17/21 06:22 12/19/21 06:25 Labs: Abnormal Lab Results - Last 24 Hours (Table) 12/18/21 12/18/21 12/19/21 Range/Units 16:55 21:43 06:25 Sodium 136 L (137-145) mmol/L BUN 29 H (9-20) mg/dL Glucose 194 H (74-99) mg/dL POC Glucose (mg/dL) 247 H 187 H (70-110) mg/dL 12/19/21 12/19/21 Range/Units 06:53 11:18 Sodium (137-145) mmol/L BUN (9-20) mg/dL Glucose (74-99) mg/dL POC Glucose (mg/dL) 183 H 211 H (70-110) mg/dL Microbiology - Last 24 Hours (Table) 12/15/21 10:17 Blood Culture - Preliminary Blood No Growth after 72 hours 12/15/21 10:17 Blood Culture - Preliminary Blood No Growth after 72 hours Assessment and Plan Assessment: Right-sided pneumonia likely community-acquired continue IV antibiotics can be social oral the time of discharge Acute on chronic hypoxic respiratory failure Acute COPD exacerbation Oral thrush, continue nystatin swish and swallow Uncontrolled diabetes with hyperglycemia Hypertension hypertensive cardiovascular disease Coronary artery disease status post a stent Dyslipidemia Prior history of KS in the past Plan: Continue bronchodilators Continue supplemental oxygen IV Rocephin, hopefully oral prior to discharge early next week Oral Zithromax Oral nystatin swish and swallow Deep breathing sense incentive spirometry Continue home medications Start titrating his steroids down hopefully changed to oral prior to discharge Further plan of care as per clinical response of the patient Time with Patient: Greater than 30
[2021-12-19 12:01] VITALS: PULSE 69
--- NOTE | 2021-12-21 03:33 | P.DS ---
Providers Date of admission: 12/15/21 11:49 Expected date of discharge: 12/19/21 Attending physician: Chas Pitts MD Consults: 12/15/21 16:50 Consult Physician Routine Consulting Provider: Terry Perea Consult Reason/Comments: copd Do you want consulting provider notified?: Yes Primary care physician: Deanna Kate Hospital Course: Final diagnosis Chronic obstructive pulmonary disease, acute exacerbation with acute right lower lobe pneumonia Diabetes mellitus type 2, uncontrolled with hyperglycemia History of coronary artery disease Multiple medical issues GI prophylaxis DVT prophylaxis Full code Discharge disposition Patient is being discharged in a stable condition with guarded prognosis to home . Patient will follow-up with Dr. Kate and Dr. Perea pulmonary in the outpatient setting upon discharge. Patient is to continue with oral lasix, pred taper, and duonebs as scheduled. Total time taken is greater than 35 minutes. Hospital course This is a 76-year-old male who was recently admitted with COPD acute exacerbation and RLL pneumonia and was being closely monitored. Dr. Perea evaluated the patient and was maintained on IV lasix, IV steroids, duonebs and abx. Patient will continue abx and pred taper on discharge. Patient is on 2L and reports he has 02 at home as needed. Patient reports to improving and would like to go home. Patient with some thrush and will continue nystatin on discharge as well. Currently no reports of chest pain, shortness of breath, or palpitations. Patient is afebrile. No reports of nausea or vomiting and patient is tolerating diet. Patient will be discharged home today. Physical exam: Gen: This is a 76 year old male awake, alert and oriented x3. well developed, well nourished HEENT: Head is atraumatic, normocephalic. Pupils equal, round. Sclerae is anicteric. NECK: Supple. No JVD. No lymphadenopathy. No thyromegaly. LUNGS: diminished breath sounds bilaterally with some expiratory wheezes and rhonchi noted. No intercostal retractions. HEART: Regular rate and rhythm. No murmur. ABDOMEN: Soft. Bowel sounds are present. No masses. No tenderness. EXTREMITIES: improved pedal edema. No calf tenderness. NEUROLOGICAL: Patient is awake, alert and oriented x3. Cranial nerves 2 through 12 are grossly intact. Please refer to medication reconciliation sheet for a list of medications. The impression and plan of care has been dictated by Namita Chavarria, Nurse Practitioner as directed. Dr. Yeyo MD I have performed a history and examination and MDM of this patient, discussed the same with the dictator, and agree with the dictator's assessment and plan as written ,documented as a scribe. Based on total visit time, I have performed more than 50% of the visit. Patient Condition at Discharge: Fair Plan - Discharge Summary Discharge Rx Participant: No New Discharge Prescriptions: New Docusate [Colace] 100 mg PO BID cap Ipratropium-Albuterol Nebulize [Duoneb 0.5 mg-3 mg/3 ml Soln] 3 ml INHALATION QID PRN each PRN Reason: Shortness Of Breath Or Wheezing Ipratropium-Albuterol Nebulize [Duoneb 0.5 mg-3 mg/3 ml Soln] 3 ml INHALATION RT-Q4H each Magnesium Oxide [Mag-Ox] 400 mg PO DAILY 30 Days #30 tab cefUROXime axetiL [Ceftin] 500 mg PO BID 5 Days #10 tab polyethylene glycoL 3350 [Miralax] 17 gm PO DAILY PRN packet PRN Reason: Constipation Nystatin 100,000 Unit/ml Susp [Mycostatin Oral Susp] 500,000 unit PO QID 5 Days #30 ml predniSONE 10 mg PO DIRECTED #30 tab Continue allopurinoL [Zyloprim] 100 mg PO DAILY Tamsulosin HCl [Flomax] 0.4 mg PO W/SUPPER Metoprolol Succinate [Toprol Xl] 50 mg PO DAILY Rosuvastatin [Crestor] 20 mg PO W/SUPPER lisinopriL [Zestril] 10 mg PO DAILY Pantoprazole [Protonix] 40 mg PO DAILY Loratadine 10 mg PO DAILY Aspirin EC [Ecotrin Low Dose] 81 mg PO DAILY Furosemide [Lasix] 20 mg PO DAILY Zinc 50 mg PO DAILY Multivitamins, Thera [Multivitamin (formulary)] 1 tab PO DAILY Fluticasone Nasal Gould [Flonase Nasal Gould] 2 spray EA NOSTRIL DAILY PRN PRN Reason: Congestion Budesonide/Formoterol Fumarate [Symbicort 80-4.5 Mcg Inhaler] 2 puff INHALATION RT-BID Ipratropium-Albuterol Nebulize [Duoneb 0.5 mg-3 mg/3 ml Soln] 3 ml INHALATION RT-Q4H 30 Days #60 each Montelukast Sodium [Singulair] 10 mg PO HS Potassium Gluconate [Potassium Gluconate ER] 99 mg PO DAILY Cholecalciferol [Vitamin D3 (25 Mcg = 1000 Iu)] 25 mcg PO DAILY Ascorbic Acid [Vitamin C] 500 mg PO DAILY metFORMIN HCL [Glucophage] 500 mg PO BID Acetaminophen [Tylenol Extra Strength] 500 - 1,000 mg PO Q6H PRN PRN Reason: Pain Discharge Medication List allopurinoL [Zyloprim] 100 mg PO DAILY 03/02/16 [History] Metoprolol Succinate [Toprol Xl] 50 mg PO DAILY 12/29/17 [History] Tamsulosin HCl [Flomax] 0.4 mg PO W/SUPPER 12/29/17 [History] Rosuvastatin [Crestor] 20 mg PO W/SUPPER 02/27/19 [History] lisinopriL [Zestril] 10 mg PO DAILY 02/27/19 [History] Pantoprazole [Protonix] 40 mg PO DAILY 03/03/19 [History] Loratadine 10 mg PO DAILY 08/16/20 [History] Montelukast Sodium [Singulair] 10 mg PO HS 08/16/20 [History] Aspirin EC [Ecotrin Low Dose] 81 mg PO DAILY 10/10/20 [History] Furosemide [Lasix] 20 mg PO DAILY 12/12/20 [History] Acetaminophen [Tylenol Extra Strength] 500 - 1,000 mg PO Q6H PRN 10/19/21 [History] Ascorbic Acid [Vitamin C] 500 mg PO DAILY 10/19/21 [History] Budesonide/Formoterol Fumarate [Symbicort 80-4.5 Mcg Inhaler] 2 puff INHALATION RT-BID 10/19/21 [History] Cholecalciferol [Vitamin D3 (25 Mcg = 1000 Iu)] 25 mcg PO DAILY 10/19/21 [History] Fluticasone Nasal Gould [Flonase Nasal Gould] 2 spray EA NOSTRIL DAILY PRN 10/19/21 [History] Multivitamins, Thera [Multivitamin (formulary)] 1 tab PO DAILY 10/19/21 [History] Potassium Gluconate [Potassium Gluconate ER] 99 mg PO DAILY 10/19/21 [History] Zinc 50 mg PO DAILY 10/19/21 [History] metFORMIN HCL [Glucophage] 500 mg PO BID 10/19/21 [History] Docusate [Colace] 100 mg PO BID cap 12/19/21 [Rx] Ipratropium-Albuterol Nebulize [Duoneb 0.5 mg-3 mg/3 ml Soln] 3 ml INHALATION QID PRN each 12/19/21 [Rx] Ipratropium-Albuterol Nebulize [Duoneb 0.5 mg-3 mg/3 ml Soln] 3 ml INHALATION RT-Q4H each 12/19/21 [Rx] Ipratropium-Albuterol Nebulize [Duoneb 0.5 mg-3 mg/3 ml Soln] 3 ml INHALATION RT-Q4H 30 Days #60 each 12/19/21 [Rx] Magnesium Oxide [Mag-Ox] 400 mg PO DAILY 30 Days #30 tab 12/19/21 [Rx] Nystatin 100,000 Unit/ml Susp [Mycostatin Oral Susp] 500,000 unit PO QID 5 Days #30 ml 12/19/21 [Rx] cefUROXime axetiL [Ceftin] 500 mg PO BID 5 Days #10 tab 12/19/21 [Rx] polyethylene glycoL 3350 [Miralax] 17 gm PO DAILY PRN packet 12/19/21 [Rx] predniSONE 10 mg PO DIRECTED #30 tab 12/19/21 [Rx] Follow up Appointment(s)/Referral(s): Deanna Kate MD [Primary Care Provider] - 12/22/21 2:30 pm Terry Perea MD [STAFF PHYSICIAN] - 01/03/22 3:00 pm Ambulatory/Diagnostic Orders: Complete Blood Count w/diff [LAB.AMB] Time Frame: 3 Days, Location: None Selected Patient Instructions/Handouts: COPD (Chronic Obstructive Pulmonary Disease) (DC) Activity/Diet/Wound Care/Special Instructions: Activity Limited until follow-up Continue medications as prescribed Continue to elevate lower extremities while at rest and use compression stockings Recommend follow-up with primary care provider and repeat labs of CBC and BMP Follow-up with pulmonary outpatient Continue antibiotics until finished Continue prednisone taper Continue consistent carb diet Continue to monitor Accu-Cheks before meals and at bedtime and keep a diary for primary care follow-up Discharge Disposition: HOME SELF-CARE
== END 2021-12-19 15:33 | disposition home or self-care (01) | DRG 190 ==
LOC: EC 08:14 → 4SSUR 11:49
PROVIDERS: ADMIT Internal Medicine; ATTEND Internal Medicine
DX: J44.1 Chronic obstructive pulmonary disease with (acute) exacerbation (principal); J18.9 Pneumonia, unspecified organism; J96.21 Acute and chronic respiratory failure with hypoxia; B37.0 Candidal stomatitis; Z20.822 Contact with and (suspected) exposure to COVID-19; J84.9 Interstitial pulmonary disease, unspecified; J44.0 Chronic obstructive pulmonary disease with (acute) lower respiratory infection; I25.10 Atherosclerotic heart disease of native coronary artery without angina pectoris; E66.01 Morbid (severe) obesity due to excess calories; I08.1 Rheumatic disorders of both mitral and tricuspid valves; Z68.32 Body mass index [BMI] 32.0-32.9, adult; I10 Essential (primary) hypertension; M10.9 Gout, unspecified; J40 Bronchitis, not specified as acute or chronic; Z86.16 Personal history of COVID-19; E11.65 Type 2 diabetes mellitus with hyperglycemia; G47.9 Sleep disorder, unspecified; E78.5 Hyperlipidemia, unspecified; I25.2 Old myocardial infarction; K21.9 Gastro-esophageal reflux disease without esophagitis; Z79.51 Long term (current) use of inhaled steroids; Z79.52 Long term (current) use of systemic steroids; Z79.82 Long term (current) use of aspirin; Z79.84 Long term (current) use of oral hypoglycemic drugs; Z79.899 Other long term (current) drug therapy; Z80.1 Family history of malignant neoplasm of trachea, bronchus and lung; Z87.891 Personal history of nicotine dependence; Z95.5 Presence of coronary angioplasty implant and graft; Z87.19 Personal history of other diseases of the digestive system
CPT/HCPCS: 36415; 71045; 71046; 80048; 80053; 83036; 83605; 83735; 83880; 84484; 85025; 85610; 85730; 87040; 87635; 93005; 93306; 94640; 94760; 96365; 96366; 96368; 96375; 96376; 99291

== ENCOUNTER 2022-03-19 10:11 | Inpatient (IN) | payer MEDICARE ==
[2022-03-19 11:11] LABS: Basophils % (A) 1 %; Eosinophils # (A) 0.6 k/uL (0-0.7); Eosinophils % (A) 9 %; Lymphocytes # (A) 1.6 k/uL (1.0-4.8); Lymphocytes % (A) 24 %; MCH 32.5 pg (25.0-35.0); MCHC 34.9 g/dL (31.0-37.0); MCV 93.1 fL (80.0-100.0); Mean Platelet Volume 7.2; Monocytes # (A) 0.5 k/uL (0-1.0); Monocytes % (A) 7 %; Neutrophils # (A) 3.9 k/uL (1.3-7.7); Neutrophils % (A) 58 %; Platelet Count 208 k/uL (150-450); RBC 4.62 m/uL (4.30-5.90); RDW 13.9 % (11.5-15.5); WBC 6.7 k/uL (3.8-10.6)
[2022-03-19 12:03] LABS: Albumin 4.2 g/dL (3.5-5.0); Calcium 9.2 mg/dL (8.4-10.2); Magnesium 1.8 mg/dL (1.6-2.3); Potassium 4.2 mmol/L (3.5-5.1); Total Bilirubin 0.9 mg/dL (0.2-1.3); Total Protein 6.5 g/dL (6.3-8.2)
--- NOTE | 2022-03-19 12:56 | XR ---
EXAMINATION TYPE: XR chest 2V DATE OF EXAM: 03/19/2022 COMPARISON: 01/09/2022 INDICATION: Difficulty breathing, increased shortness of breath TECHNIQUE: Single frontal view of the chest is obtained. FINDINGS: The heart size is normal. The pulmonary vasculature is normal. No focal consolidation evident. IMPRESSION: 1. No acute pulmonary process.
[2022-03-19] MEDS ORDERED: IPRATROPIUM-ALBUTEROL 3 ML NEB INHALATION STA (13:08)
[2022-03-19] MEDS ORDERED: methylPREDNISolone SOD SUCCI 125 MG/2 ML VIAL IV STA (13:08)
--- NOTE | 2022-03-19 13:27 | ED ---
General Adult HPI - General Chief complaint: Shortness of Breath Stated complaint: SOB,Bleeding Time Seen by Provider: 03/19/22 10:25 Source: patient, RN notes reviewed Mode of arrival: ambulatory Limitations: no limitations - History of Present Illness Initial comments: 76-year-old male presents emergency from chief complaint of shortness breath, rectal bleeding. Patient states that he follow-up with [facility] this week and was scheduled for colonoscopy tomorrow. Patient states that he was told him a respirator if he had any further bleeding. He states that he had her blood bleeding's morning. Patient denies abdominal pain. Patient states it is normally on oxygen at home he's felt more short of breath so this caused him to present emergency department. Patient denies any chest pain no palpitations. Patient does have underlying asthma, COPD. Patient denies any blood thinners. Patient offers no complaints. - Related Data Home Medications Medication Instructions Recorded Confirmed allopurinoL [Zyloprim] 100 mg PO DAILY 03/02/16 03/19/22 Metoprolol Succinate [Toprol Xl] 50 mg PO DAILY 12/29/17 03/19/22 Tamsulosin HCl [Flomax] 0.4 mg PO HS 12/29/17 03/19/22 Rosuvastatin [Crestor] 20 mg PO DAILY 02/27/19 03/19/22 lisinopriL [Zestril] 10 mg PO DAILY 02/27/19 03/19/22 Pantoprazole [Protonix] 40 mg PO DAILY 03/03/19 03/19/22 Loratadine 10 mg PO DAILY 08/16/20 03/19/22 Montelukast Sodium [Singulair] 10 mg PO HS 08/16/20 03/19/22 Aspirin EC [Ecotrin Low Dose] 81 mg PO DIRECTED 10/10/20 03/19/22 Furosemide [Lasix] 20 mg PO DAILY 12/12/20 03/19/22 Ascorbic Acid [Vitamin C] 500 mg PO DAILY 10/19/21 03/19/22 Budesonide/Formoterol Fumarate 2 puff INHALATION RT-BID 10/19/21 03/19/22 [Symbicort 80-4.5 Mcg Inhaler] Cholecalciferol [Vitamin D3 (25 25 mcg PO DAILY 10/19/21 03/19/22 Mcg = 1000 Iu)] Multivitamins, Thera [Multivitamin 1 tab PO DAILY 10/19/21 03/19/22 (formulary)] Potassium Gluconate [Potassium 99 mg PO DAILY 10/19/21 03/19/22 Gluconate ER] metFORMIN HCL [Glucophage] 500 mg PO BID 10/19/21 03/19/22 Albuterol Inhaler [Ventolin Hfa 2 puff INHALATION RT-Q6H PRN 03/19/22 03/19/22 Inhaler] Ipratropium-Albuterol Nebulize 3 ml INHALATION RT-Q4H PRN 03/19/22 03/19/22 [Duoneb 0.5 mg-3 mg/3 ml Soln] amLODIPine [Norvasc] 5 mg PO DAILY 03/19/22 03/19/22 Previous Rx's Medication Instructions Recorded Magnesium Oxide [Mag-Ox] 400 mg PO DAILY 30 Days #30 tab 12/19/21 Allergies Allergy/AdvReac Type Severity Reaction Status Date / Time No Known Allergies Allergy Verified 03/19/22 14:38 Review of Systems ROS Statement: Those systems with pertinent positive or pertinent negative responses have been documented in the HPI. ROS Other: All systems not noted in ROS Statement are negative. Past Medical History Past Medical History: Coronary Artery Disease (CAD), Chest Pain / Angina, COPD, Diabetes Mellitus, GERD/Reflux, GI Bleed, Hyperlipidemia, Hypertension, Myocardial Infarction ([place]), Skin Disorder Additional Past Medical History / Comment(s): Hx of rectal bleeding, rectal fissure; gout, bronchitis, uses O2 @ 2L NC at night & prn. +Covid 08/2020. Hx cysts on groin area. Last Myocardial Infarction Date:: approx 2005 History of Any Multi-Drug Resistant Organisms: None Reported Past Surgical History: Heart Catheterization With Stent Additional Past Surgical History / Comment(s): total 3 cardiac stents, surgery f or cyst in rectal area, siddharth cataracts, uro lift, cysts removed from testicles and back, colonoscopy, Past Anesthesia/Blood Transfusion Reactions: No Reported Reaction Date of Last Stent Placement:: 2005 Past Psychological History: No Psychological Hx Reported Smoking Status: Former smoker - Past Family History Father Family Medical History: Cancer Additional Family Medical History / Comment(s): lung cancer Mother Family Medical History: No Reported History Additional Family Medical History / Comment(s): Mother was healthy and lived to be in her 90s. General Exam Limitations: no limitations General appearance: alert, in no apparent distress Head exam: Present: atraumatic, normocephalic, normal inspection Neck exam: Present: normal inspection. Absent: tenderness, meningismus, lymphadenopathy Respiratory exam: Present: wheezes. Absent: normal lung sounds bilaterally, respiratory distress, rales, rhonchi, stridor Cardiovascular Exam: Present: regular rate, normal rhythm, normal heart sounds. Absent: systolic murmur, diastolic murmur, rubs, gallop, clicks GI/Abdominal exam: Present: soft, normal bowel sounds. Absent: distended, tenderness, guarding, rebound, rigid Neurological exam: Present: alert Course Vital Signs 03/19/22 03/19/22 03/19/22 10:20 11:23 13:01 Temperature 97.9 F Pulse Rate 89 82 84 Respiratory 20 18 20 Rate Blood Pressure 112/70 102/64 94/68 O2 Sat by Pulse 93 L 98 97 Oximetry 03/19/22 03/19/22 13:39 13:55 Temperature Pulse Rate 74 80 Respiratory Rate Blood Pressure O2 Sat by Pulse Oximetry Medical Decision Making - Medical Decision Making 76-year-old presented for shortness breath. Patient has mild COPD exacerbation, so complaining of dyspnea, wheezing. Patient was started on steroids, treatment patient is stable hemoglobin consult to Dr. Zavala secondary to colonoscopy scheduled for tomorrow for rectal bleeding. Patient did have bright red blood per rectum. - Lab Data Result diagrams: 03/19/22 11:02 03/19/22 11:02 Lab Results 03/19/22 03/19/22 03/19/22 Range/Units 10:50 11:02 11:02 WBC 6.7 (3.8-10.6) k/uL RBC 4.62 (4.30-5.90) m/uL Hgb 15.0 (13.0-17.5) gm/dL Hct 43.0 (39.0-53.0) % MCV 93.1 (80.0-100.0) fL MCH 32.5 (25.0-35.0) pg MCHC 34.9 (31.0-37.0) g/dL RDW 13.9 (11.5-15.5) % Plt Count 208 (150-450) k/uL MPV 7.2 Neutrophils % 58 % Lymphocytes % 24 % Monocytes % 7 % Eosinophils % 9 % Basophils % 1 % Neutrophils # 3.9 (1.3-7.7) k/uL Lymphocytes # 1.6 (1.0-4.8) k/uL Monocytes # 0.5 (0-1.0) k/uL Eosinophils # 0.6 (0-0.7) k/uL Basophils # 0.0 (0-0.2) k/uL PT 11.0 (9.0-12.0) sec INR 1.0 (<1.2) APTT 25.0 (22.0-30.0) sec Sodium (137-145) mmol/L Potassium (3.5-5.1) mmol/L Chloride (98-107) mmol/L Carbon Dioxide (22-30) mmol/L Anion Gap mmol/L BUN (9-20) mg/dL Creatinine (0.66-1.25) mg/dL Est GFR (CKD-EPI)AfAm (>60 ml/min/1.73 sqM) Est GFR (CKD-EPI)NonAf (>60 ml/min/1.73 sqM) Glucose (74-99) mg/dL Calcium (8.4-10.2) mg/dL Magnesium (1.6-2.3) mg/dL Total Bilirubin (0.2-1.3) mg/dL AST (17-59) U/L ALT (4-49) U/L Alkaline Phosphatase (38-126) U/L Troponin I (0.000-0.034) ng/mL NT-Pro-B Natriuret Pep pg/mL Total Protein (6.3-8.2) g/dL Albumin (3.5-5.0) g/dL Blood Type B Positive Blood Type Recheck B Pos Bld Type Recheck Status No Antibody Screen NEGATIVE Spec Expiration Date 03/22/2022 - 234903/19/22 03/19/22 03/19/22 Range/Units 11:02 11:02 11:02 WBC (3.8-10.6) k/uL RBC (4.30-5.90) m/uL Hgb (13.0-17.5) gm/dL Hct (39.0-53.0) % MCV (80.0-100.0) fL MCH (25.0-35.0) pg MCHC (31.0-37.0) g/dL RDW (11.5-15.5) % Plt Count (150-450) k/uL MPV Neutrophils % % Lymphocytes % % Monocytes % % Eosinophils % % Basophils % % Neutrophils # (1.3-7.7) k/uL Lymphocytes # (1.0-4.8) k/uL Monocytes # (0-1.0) k/uL Eosinophils # (0-0.7) k/uL Basophils # (0-0.2) k/uL PT (9.0-12.0) sec INR (<1.2) APTT (22.0-30.0) sec Sodium 138 (137-145) mmol/L Potassium 4.2 (3.5-5.1) mmol/L Chloride 99 (98-107) mmol/L Carbon Dioxide 27 (22-30) mmol/L Anion Gap 12 mmol/L BUN 12 (9-20) mg/dL Creatinine 1.06 (0.66-1.25) mg/dL Est GFR (CKD-EPI)AfAm 79 (>60 ml/min/1.73 sqM) Est GFR (CKD-EPI)NonAf 68 (>60 ml/min/1.73 sqM) Glucose 121 H (74-99) mg/dL Calcium 9.2 (8.4-10.2) mg/dL Magnesium 1.8 (1.6-2.3) mg/dL Total Bilirubin 0.9 (0.2-1.3) mg/dL AST 21 (17-59) U/L ALT 19 (4-49) U/L Alkaline Phosphatase 79 (38-126) U/L Troponin I <0.012 (0.000-0.034) ng/mL NT-Pro-B Natriuret Pep 95 pg/mL Total Protein 6.5 (6.3-8.2) g/dL Albumin 4.2 (3.5-5.0) g/dL Blood Type Blood Type Recheck Bld Type Recheck Status Antibody Screen Spec Expiration Date Disposition Clinical Impression: GI bleed, COPD (chronic obstructive pulmonary disease), Dyspnea Disposition: ADMITTED IP TO THIS [facility] Condition: Fair Referrals: Deanna Kate MD [Primary Care Provider] - 1-2 days Time of Disposition: 13:27
[2022-03-19] MEDS ORDERED: NALOXONE 0.4 MG/ML 1 ML VIAL IVP PRN (15:00)
[2022-03-19] MEDS: IPRATROPIUM-ALBUTEROL 3 ML NEB INHALATION SCH ×2 (16:24→19:23)
[2022-03-19] MEDS ORDERED: DEXTROSE 50% SYRINGE 50 ML IVP PRN ×2 (17:24)
[2022-03-19] MEDS ORDERED: PEG 3350 (236 GM/BTL) + LYTES 4,000 ML BOTTLE PO ONE (18:09)
[2022-03-19] MEDS ORDERED: ALBUTEROL HFA INHALER INHALATION PRN (18:23)
[2022-03-19] MEDS ORDERED: IPRATROPIUM-ALBUTEROL 3 ML NEB INHALATION PRN (18:23)
[2022-03-19] MEDS: methylPREDNISolone SOD SUCCI 125 MG/2 ML VIAL IV SCH (18:24)
[2022-03-19 18:26] LABS: Glucose,Whole Blood 174 mg/dL (70-110)
[2022-03-19] MEDS: INSULIN ASPART (NovoLOG) 100 UNIT/ML VIAL SQ SCH ×2 (18:26→21:48)
[2022-03-19] MEDS ORDERED: ASPIRIN 81 MG PO SCH (18:30)
--- NOTE | 2022-03-19 18:34 | P.HPIM ---
History of Present Illness H&P Date: 03/19/22 76-year-old male, with history of CAD, hypertension, hyperlipidemia, diabetes mellitus, COPD, presents emergency from chief complaint of shortness breath, rectal bleeding. Patient states that he follow-up with Dr. Matos this week and was scheduled for colonoscopy tomorrow. Patient states that he was told to proceed to emergency room if he had any further bleeding. He states that he had her blood bleeding's morning. Patient denies abdominal pain. Patient states it is normally on oxygen at home he's felt more short of breath so this caused him to present emergency department. Patient denies any chest pain no palpitations. Patient does have underlying asthma, COPD. Patient denies any blood thinners. Patient offers no complaints. Patient did have an episode of bright red blood per rectum while in ED Blood work and computed in ED resists WBC of 6 and 7, hemoglobin 15, platelet count of 208, sodium 138, potassium 4.2, BUN/creatinine of 2/1.067 blood glucose of 121 Review of Systems REVIEW OF SYSTEMS: CONSTITUTIONAL: No fever, no malaise, no fatigue. HEENT: No recent visual problems or hearing problems. Denied any sore throat. CARDIOVASCULAR: No chest pain, orthopnea, PND, no palpitations, no syncope. PULMONARY: shortness of breath, no cough, no hemoptysis. GASTROINTESTINAL: Rectal bleed. NEUROLOGICAL: No headaches, no weakness, no numbness. HEMATOLOGICAL: Denies any bleeding or petechiae. GENITOURINARY: Denies any burning micturition, frequency, or urgency. MUSCULOSKELETAL/RHEUMATOLOGICAL: Denies any joint pain, swelling, or any muscle pain. ENDOCRINE: Denies any polyuria or polydipsia. The rest of the 14-point review of systems is negative. Past Medical History Past Medical History: Coronary Artery Disease (CAD), Chest Pain / Angina, COPD, Diabetes Mellitus, GERD/Reflux, GI Bleed, Hyperlipidemia, Hypertension, Myocardial Infarction ([place]), Skin Disorder Additional Past Medical History / Comment(s): Hx of rectal bleeding, rectal fissure; gout, bronchitis, uses O2 @ 2L NC at night & prn. +Covid 08/2020. Hx cysts on groin area. Last Myocardial Infarction Date:: approx 2005 History of Any Multi-Drug Resistant Organisms: None Reported Past Surgical History: Heart Catheterization With Stent Additional Past Surgical History / Comment(s): total 3 cardiac stents, surgery for cyst in rectal area, siddharth cataracts, uro lift, cysts removed from testicles and back, colonoscopy, Past Anesthesia/Blood Transfusion Reactions: No Reported Reaction Date of Last Stent Placement:: 2005 Past Psychological History: No Psychological Hx Reported Additional Psychological History / Comment(s): . Smoking Status: Former smoker Past Alcohol Use History: Daily Additional Past Alcohol Use History / Comment(s): Pt started smoking in 195 and quit in 2016. Past Drug Use History: None Reported - Past Family History Father Family Medical History: Cancer Additional Family Medical History / Comment(s): lung cancer Mother Family Medical History: No Reported History Additional Family Medical History / Comment(s): Mother was healthy and lived to be in her 90s. Medications and Allergies Home Medications Medication Instructions Recorded Confirmed Type allopurinoL [Zyloprim] 100 mg PO DAILY 03/02/16 03/19/22 History Metoprolol Succinate [Toprol Xl] 50 mg PO DAILY 12/29/17 03/19/22 History Tamsulosin HCl [Flomax] 0.4 mg PO HS 12/29/17 03/19/22 History Rosuvastatin [Crestor] 20 mg PO DAILY 02/27/19 03/19/22 History lisinopriL [Zestril] 10 mg PO DAILY 02/27/19 03/19/22 History Pantoprazole [Protonix] 40 mg PO DAILY 03/03/19 03/19/22 History Loratadine 10 mg PO DAILY 08/16/20 03/19/22 History Montelukast Sodium [Singulair] 10 mg PO HS 08/16/20 03/19/22 History Aspirin EC [Ecotrin Low Dose] 81 mg PO DIRECTED 10/10/20 03/19/22 History Furosemide [Lasix] 20 mg PO DAILY 12/12/20 03/19/22 History Ascorbic Acid [Vitamin C] 500 mg PO DAILY 10/19/21 03/19/22 History Budesonide/Formoterol Fumarate 2 puff INHALATION RT-BID 10/19/21 03/19/22 History [Symbicort 80-4.5 Mcg Inhaler] Cholecalciferol [Vitamin D3 (25 25 mcg PO DAILY 10/19/21 03/19/22 History Mcg = 1000 Iu)] Multivitamins, Thera [Multivitamin 1 tab PO DAILY 10/19/21 03/19/22 History (formulary)] Potassium Gluconate [Potassium 99 mg PO DAILY 10/19/21 03/19/22 History Gluconate ER] metFORMIN HCL [Glucophage] 500 mg PO BID 10/19/21 03/19/22 History Magnesium Oxide [Mag-Ox] 400 mg PO DAILY 30 Days #30 tab 12/19/21 03/19/22 Rx Albuterol Inhaler [Ventolin Hfa 2 puff INHALATION RT-Q6H PRN 03/19/22 03/19/22 History Inhaler] Ipratropium-Albuterol Nebulize 3 ml INHALATION RT-Q4H PRN 03/19/22 03/19/22 History [Duoneb 0.5 mg-3 mg/3 ml Soln] amLODIPine [Norvasc] 5 mg PO DAILY 03/19/22 03/19/22 History Allergies Allergy/AdvReac Type Severity Reaction Status Date / Time No Known Allergies Allergy Verified 03/19/22 14:38 Physical Exam Vitals: Vital Signs Temp Pulse Resp BP Pulse Ox 03/19/22 17:50 98.1 F 82 18 122/74 95 03/19/22 16:37 78 03/19/22 16:27 90 03/19/22 16:10 84 18 125/83 95 03/19/22 13:55 80 03/19/22 13:39 74 03/19/22 13:01 84 20 94/68 97 03/19/22 11:23 82 18 102/64 98 03/19/22 10:20 97.9 F 89 20 112/70 93 L Intake and Output 03/19/22 03/19/22 03/19/22 06:59 14:59 22:59 Other: Weight 108.862 kg 108.862 kg PHYSICAL EXAMINATION: GENERAL: The patient is alert and oriented x3, not in any acute distress. Well developed, well nourished. HEENT: Pupils are round and equally reacting to light. EOMI. No scleral icterus. No conjunctival pallor. Normocephalic, atraumatic. No pharyngeal erythema. No thyromegaly. CARDIOVASCULAR: S1 and S2 present. No murmurs, rubs, or gallops. PULMONARY: Chest is clear to auscultation, no wheezing or crackles. ABDOMEN: Soft, nontender, nondistended, normoactive bowel sounds. No palpable organomegaly. MUSCULOSKELETAL: No joint swelling or deformity. EXTREMITIES: No cyanosis, clubbing, or pedal edema. NEUROLOGICAL: Gross neurological examination did not reveal any focal deficits. SKIN: No rashes. Results CBC & Chem 7: 03/19/22 11:02 03/19/22 11:02 Labs: Abnormal Lab Results - Last 24 Hours (Table) 03/19/22 Range/Units 11:02 Glucose 121 H (74-99) mg/dL Thrombosis Risk Factor Assmnt - Choose All That Apply Any of the Below Risk Factors Present?: Yes Each Factor Represents 1 point: Abnormal pulmonary function (COPD) Each Risk Factor Represents 3 Points: Age 75 years or older Other congenital or acquired thrombophilia - If yes, enter type in comment: No Thrombosis Risk Factor Assessment Total Risk Factor Score: 4 Thrombosis Risk Factor Assessment Level: Moderate Risk Assessment and Plan Assessment: 1. Acute exacerbation COPD - Patient has been placed on Solu-Medrol 60 mg IV every 8 hours; DuoNeb nebulizer treatments 4 times a day and when necessary - Start patient on doxycycline 100 mg every 12 hours - We will continue with home inhaler therapy 2. Bright red blood per rectum; patient will be admitted for monitoring - Monitor H&H every 12 hours; type crossmatch and transfuse if hemoglobin is less than 7.0 3. Hypertension; amlodipine 5 mg daily, Lasix 20 mg daily; Toprol-XL 50 mg daily; lisinopril 10 mg daily 4. Hyperlipidemia; Lipitor 40 mg by mouth daily 5. Diabetes mellitus 2; patient takes metformin; we will reorder; monitor Accu- Cheks before meals and at bedtime with insulin sliding scale 6. Coronary artery disease; stable on home dose of aspirin, statin, beta blockers; we will hold off on aspirin given GI bleed 7. Hyperuricemia/gout; continue with home dose of allopurinol DVT prophylaxis; SCDs only, given GI bleed CODE STATUS; full code
[2022-03-19] MEDS: SYMBICORT 80-4.5 MCG INHALER INHALATION SCH (19:23)
[2022-03-19] MEDS ORDERED: SYMBICORT 80-4.5 MCG INHALER INHALATION SCH (20:00)
[2022-03-19] MEDS ORDERED: INSULIN ASPART (NovoLOG) 100 UNIT/ML VIAL SQ SCH (21:00)
[2022-03-19 21:02] LABS: Glucose,Whole Blood 172 mg/dL (70-110)
[2022-03-19] MEDS: metFORMIN 500 MG TAB PO SCH (21:46)
[2022-03-19] MEDS: TAMSULOSIN 0.4 MG CAP.ER.24H PO SCH (21:46)
[2022-03-19] MEDS: MONTELUKAST 10 MG TAB PO SCH (21:46)
[2022-03-19 22:29] LABS: HCT 43.8 % (39.6-50.0); HGB 14.8 g/dL (13.0-17.0); MCHC 33.8 g/dL (32.0-37.0); MCV 94.6 fL (80.0-97.0); Mean Platelet Volume 9.6 fL (9.5-12.2); NRBC Per 100 WBC 0 /100 WBCS (0.0-0.0); Platelet Count 196 X 10*3/uL (140-440); RBC 4.63 X 10*6/uL (4.40-5.60); RDW 13.7 % (11.5-14.5); WBC 5.52 X 10*3/uL (4.50-10.00)
[2022-03-20] MEDS: methylPREDNISolone SOD SUCCI 125 MG/2 ML VIAL IV SCH ×4 (00:33→16:57)
[2022-03-20] MEDS: IPRATROPIUM-ALBUTEROL 3 ML NEB INHALATION SCH ×4 (06:00→20:43)
[2022-03-20] MEDS: SYMBICORT 80-4.5 MCG INHALER INHALATION SCH ×2 (06:01→20:43)
[2022-03-20 06:23] LABS: Glucose,Whole Blood 148 mg/dL (70-110)
[2022-03-20] MEDS: INSULIN ASPART (NovoLOG) 100 UNIT/ML VIAL SQ SCH ×4 (06:24→21:38)
[2022-03-20] MEDS: NON FORMULARY DRUG (Potassium Gluconate [Potassium Gluconate Er] 99 MG Tablet) PO SCH (07:59)
[2022-03-20] MEDS: METOPROLOL SUCCINATE (ER) 50 MG TAB.ER.24H PO SCH (08:05)
[2022-03-20] MEDS: IPRATROPIUM-ALBUTEROL 3 ML NEB INHALATION PRN ×2 (08:40→23:44)
[2022-03-20 09:35] LABS: African American GFR (CKD) 95.8 (60.0-200.0); Anion Gap 14.3 mmol/L (10.00-18.00); BUN/Creat Ratio 12.78 Ratio (12.00-20.00); Blood Urea Nitrogen 11.5 mg/dL (9.0-27.0); Calcium 8.8 mg/dL (8.7-10.3); Carbon Dioxide 26.7 mmol/L (20.0-27.5); Non-African American GFR(CKD) 82.7 (60.0-200.0); Potassium 3.9 mmol/L (3.5-5.5)
[2022-03-20] MEDS ORDERED: SODIUM CHLORIDE 0.9% 500 ML 500 ML IV ONE ×2 (09:59)
--- NOTE | 2022-03-20 10:26 | P.OP ---
Date of Procedure: 03/20/22 Preoperative Diagnosis: GI bleed Postoperative Diagnosis: Antral gastritis Diverticulosis Transverse colon polyp External hemorrhoids Procedure(s) Performed: Internal and external hemorrhoids Anesthesia: MAC Surgeon: Ubaldo Alfredo Pathology: other (Colon polyp, antrum) Condition: stable Disposition: PACU Description of Procedure: The patient's placed on the endoscopy table in the lateral position. He received IV sedation. The gastroscope placed oropharynx passed into the stomach. Scope was placed through the pylorus and the first and second portion of the duodenum. There is no the vicinity inflation. The first and second portion duodenum appeared normal. Scope was then brought back the antrum this was mildly inflamed. A biopsies was performed. The scope was then retroflexed and remainder the stomach appeared normal. The GE junction was at 40 cm per the distal esophagus appeared normal. The proximal esophagus normal. Scope withdrawn. Next digital rectal exam was performed which revealed large external hemorrhoids. Flexible colonoscopy was then placed patient anus and passed throughout the entire colon. The ileocecal valve was visualized. Cecum appeared normal. The ascending colon appeared normal. In the transverse colon there was a peduncular polyp seen this removed with the snare. The descending; was extensive diverticular disease. Scope was then brought back the rectum and this appeared normal. Scope withdrawn the anus and internal and external hemorrhoids are noted. Presumed patient most likely had bleeding from internal and external hemorrhoids.
--- NOTE | 2022-03-20 11:19 | P.GSCN ---
History of Present Illness Consult date: 03/20/22 History of present illness: CHIEF COMPLAINT: Shortness of breath and rectal bleeding HISTORY OF PRESENT ILLNESS: This is a 76-year-old male who presents to the hospital with complaints of worsening shortness of breath. He is being treated for COPD exacerbation. Patient also reports that he has been having intermittent bleeding from his rectum for the past week. He denies any abdominal pain. Denies any nausea or vomiting. He was scheduled for endoscopy as outpatient with Dr. graff. Patient's hemoglobin 14.8. Last colonoscopy was in October 2021 which did reveal colon polyps, diverticulosis, hemorrhoids and a pilonidal cyst. Patient did his GoLYTELY prep last night. Stools are clear. PAST MEDICAL HISTORY: Coronary Artery Disease (CAD), Chest Pain / Angina, COPD, Diabetes Mellitus, GERD/Reflux, GI Bleed, Hyperlipidemia, Hypertension, Myocardial Infarction ([place]), Skin Disorder PAST SURGICAL HISTORY: See below MEDICATIONS: See below ALLERGIES: See below SOCIAL HISTORY: No illicit drug use. REVIEW OF SYSTEMS: CONSTITUTIONAL: Denies fever or chills. HEENT: Denies blurred vision, vision changes, or eye pain. Denies hemoptysis CARDIOVASCULAR: Denies chest pain or pressure. RESPIRATORY: No shortness of breath. GASTROINTESTINAL: See HPI for pertinent findings HEMATOLOGIC: Denies bleeding disorders. GENITOURINARY: Denies any blood in urine or increased urinary frequency. SKIN: Denies pruitis. Denies rash. PHYSICAL EXAM: VITAL SIGNS: Reviewed GENERAL: Well-developed in no acute distress. HEENT: No sclera icterus. Extraocular movements grossly intact. Moist buccal mucosa. Head is atraumatic, normocephalic. No nasal drainage. ABDOMEN: Soft. Nondistended. Nontender NEUROLOGIC: Alert and oriented. Cranial nerves II through XII grossly intact. LABORATORY DATA: WBC 5.5 Hgb 15-14.8 plt 196 Sodium 140 potassium 3.9 and creatinine 0.9 IMAGING: Chest x-ray no acute process ASSESSMENT: 1. Rectal bleeding PLAN: -Patient scheduled for EGD and colonoscopy today with Dr. graff -Patient did the GoLYTELY prep yesterday -Continue monitoring hemoglobin -Continue monitor for any signs or symptoms of bleeding Physician Relations Manager note has been reviewed by physician. Signing provider agrees with the documented findings, assessment, and plan of care. Past Medical History Past Medical History: Coronary Artery Disease (CAD), Chest Pain / Angina, COPD, Diabetes Mellitus, GERD/Reflux, GI Bleed, Hyperlipidemia, Hypertension, Myocardial Infarction ([place]), Skin Disorder Additional Past Medical History / Comment(s): Hx of rectal bleeding, rectal fissure; gout, bronchitis, uses O2 @ 2L [place] at night & prn. +Covid 08/2020. Hx cysts on groin area. Last Myocardial Infarction Date:: approx 2005 History of Any Multi-Drug Resistant Organisms: None Reported Past Surgical History: Heart Catheterization With Stent Additional Past Surgical History / Comment(s): total 3 cardiac stents, surgery for cyst in rectal area, siddharth cataracts, uro lift, cysts removed from testicles and back, colonoscopy, Past Anesthesia/Blood Transfusion Reactions: No Reported Reaction Date of Last Stent Placement:: 2005 Past Psychological History: No Psychological Hx Reported Additional Psychological History / Comment(s): . Smoking Status: Former smoker Past Alcohol Use History: Daily Additional Past Alcohol Use History / Comment(s): Pt started smoking in 1955 and quit in 2016. Past Drug Use History: None Reported - Past Family History Father Family Medical History: Cancer Additional Family Medical History / Comment(s): lung cancer Mother Family Medical History: No Reported History Additional Family Medical History / Comment(s): Mother was healthy and lived to be in her 90s. Medications and Allergies Home Medications Medication Instructions Recorded Confirmed Type allopurinoL [Zyloprim] 100 mg PO DAILY 03/02/16 03/19/22 History Metoprolol Succinate [Toprol Xl] 50 mg PO DAILY 12/29/17 03/19/22 History Tamsulosin HCl [Flomax] 0.4 mg PO HS 12/29/17 03/19/22 History Rosuvastatin [Crestor] 20 mg PO DAILY 02/27/19 03/19/22 History lisinopriL [Zestril] 10 mg PO DAILY 02/27/19 03/19/22 History Pantoprazole [Protonix] 40 mg PO DAILY 03/03/19 03/19/22 History Loratadine 10 mg PO DAILY 08/16/20 03/19/22 History Montelukast Sodium [Singulair] 10 mg PO HS 08/16/20 03/19/22 History Aspirin EC [Ecotrin Low Dose] 81 mg PO DIRECTED 10/10/20 03/19/22 History Furosemide [Lasix] 20 mg PO DAILY 12/12/20 03/19/22 History Ascorbic Acid [Vitamin C] 500 mg PO DAILY 10/19/21 03/19/22 History Budesonide/Formoterol Fumarate 2 puff INHALATION RT-BID 10/19/21 03/19/22 History [Symbicort 80-4.5 Mcg Inhaler] Cholecalciferol [Vitamin D3 (25 25 mcg PO DAILY 10/19/21 03/19/22 History Mcg = 1000 Iu)] Multivitamins, Thera [Multivitamin 1 tab PO DAILY 10/19/21 03/19/22 History (formulary)] Potassium Gluconate [Potassium 99 mg PO DAILY 10/19/21 03/19/22 History Gluconate ER] metFORMIN HCL [Glucophage] 500 mg PO BID 10/19/21 03/19/22 History Magnesium Oxide [Mag-Ox] 400 mg PO DAILY 30 Days #30 tab 12/19/21 03/19/22 Rx Albuterol Inhaler [Ventolin Hfa 2 puff INHALATION RT-Q6H PRN 03/19/22 03/19/22 History Inhaler] Ipratropium-Albuterol Nebulize 3 ml INHALATION RT-Q4H PRN 03/19/22 03/19/22 History [Duoneb 0.5 mg-3 mg/3 ml Soln] amLODIPine [Norvasc] 5 mg PO DAILY 03/19/22 03/19/22 History Allergies Allergy/AdvReac Type Severity Reaction Status Date / Time No Known Allergies Allergy Verified 03/19/22 14:38 Surgical - Exam Vital Signs Temp Pulse Resp BP Pulse Ox 97.9 F 89 20 112/70 93 L 03/19/22 10:20 03/19/22 10:20 03/19/22 10:20 03/19/22 10:20 03/19/22 10:20 Results - Labs 03/19/22 19:09 03/20/22 03:46 Abnormal Lab Results - Last 24 Hours (Table) 03/19/22 03/19/22 03/19/22 Range/Units 11:02 18:25 21:01 Glucose 121 H (74-99) mg/dL POC Glucose (mg/dL) 174 H 172 H (70-110) mg/dL Hemoglobin A1c (0.0-6.0) % 03/20/22 03/20/22 03/20/22 Range/Units 03:46 03:46 06:22 Glucose 158 H (74-99) mg/dL POC Glucose (mg/dL) 148 H (70-110) mg/dL Hemoglobin A1c 7.1 H (0.0-6.0) % Diabetes panel 03/19/22 03/20/22 03/20/22 Range/Units 11:02 03:46 03:46 Sodium 138 140 (137-145) mmol/L Potassium 4.2 3.9 (3.5-5.1) mmol/L Chloride 99 99 (98-107) mmol/L Carbon Dioxide 27 26.7 (22-30) mmol/L BUN 12 11.5 (9-20) mg/dL Creatinine 1.06 0.9 (0.66-1.25) mg/dL Glucose 121 H 158 H (74-99) mg/dL Hemoglobin A1c 7.1 H (0.0-6.0) % Calcium 9.2 8.8 (8.4-10.2) mg/dL AST 21 (17-59) U/L ALT 19 (4-49) U/L Alkaline Phosphatase 79 (38-126) U/L Total Protein 6.5 (6.3-8.2) g/dL Albumin 4.2 (3.5-5.0) g/dL Calcium panel 03/19/22 03/20/22 Range/Units 11:02 03:46 Calcium 9.2 8.8 (8.4-10.2) mg/dL Albumin 4.2 (3.5-5.0) g/dL Pituitary panel 03/19/22 03/20/22 Range/Units 11:02 03:46 Sodium 138 140 (137-145) mmol/L Potassium 4.2 3.9 (3.5-5.1) mmol/L Chloride 99 99 (98-107) mmol/L Carbon Dioxide 27 26.7 (22-30) mmol/L BUN 12 11.5 (9-20) mg/dL Creatinine 1.06 0.9 (0.66-1.25) mg/dL Glucose 121 H 158 H (74-99) mg/dL Calcium 9.2 8.8 (8.4-10.2) mg/dL Adrenal panel 03/19/22 03/20/22 Range/Units 11:02 03:46 Sodium 138 140 (137-145) mmol/L Potassium 4.2 3.9 (3.5-5.1) mmol/L Chloride 99 99 (98-107) mmol/L Carbon Dioxide 27 26.7 (22-30) mmol/L BUN 12 11.5 (9-20) mg/dL Creatinine 1.06 0.9 (0.66-1.25) mg/dL Glucose 121 H 158 H (74-99) mg/dL Calcium 9.2 8.8 (8.4-10.2) mg/dL Total Bilirubin 0.9 (0.2-1.3) mg/dL AST 21 (17-59) U/L ALT 19 (4-49) U/L Alkaline Phosphatase 79 (38-126) U/L Total Protein 6.5 (6.3-8.2) g/dL Albumin 4.2 (3.5-5.0) g/dL
[2022-03-20] MEDS: metFORMIN 500 MG TAB PO SCH ×2 (11:24→21:38)
[2022-03-20] MEDS: amLODIPine 5 MG TAB PO SCH (11:24)
[2022-03-20] MEDS: ATORVASTATIN 40 MG TAB PO SCH (11:24)
[2022-03-20] MEDS: MULTIVITAMINS, THERA 1 EACH TAB PO SCH (11:24)
[2022-03-20] MEDS: ASCORBIC ACID 500 MG TAB PO SCH (11:24)
[2022-03-20] MEDS: CHOLECALCIFEROL 25 MCG (1000 IU) TABLET PO SCH (11:24)
[2022-03-20] MEDS: LORATADINE 10 MG TAB PO SCH (11:24)
[2022-03-20] MEDS: allopurinoL 100 MG TAB PO SCH (11:24)
[2022-03-20 11:25] LABS: Glucose,Whole Blood 214 mg/dL (70-110)
[2022-03-20] MEDS: MAGNESIUM OXIDE 400 MG TAB PO SCH (11:25)
[2022-03-20] MEDS: FUROSEMIDE 20 MG TAB PO SCH (11:25)
[2022-03-20] MEDS: PANTOPRAZOLE 40 MG TABLET PO SCH (11:25)
[2022-03-20] MEDS: lisinopriL 10 MG TAB PO SCH (11:25)
[2022-03-20 16:25] LABS: Glucose,Whole Blood 218 mg/dL (70-110)
[2022-03-20 19:39] LABS: Glucose,Whole Blood 227 mg/dL (70-110)
--- NOTE | 2022-03-20 20:59 | P.PN ---
Subjective 76-year-old male, with history of CAD, hypertension, hyperlipidemia, diabetes mellitus, COPD, presents emergency from chief complaint of shortness breath, rectal bleeding. Patient states that he follow-up with Dr. Matos this week and was scheduled for colonoscopy tomorrow. Patient states that he was told to proceed to emergency room if he had any further bleeding. He states that he had her blood bleeding's morning. Patient denies abdominal pain. Patient states it is normally on oxygen at home he's felt more short of breath so this caused him to present emergency department. Patient denies any chest pain no palpitations. Patient does have underlying asthma, COPD. Patient denies any blood thinners. Patient offers no complaints. Patient did have an episode of bright red blood per rectum while in ED Blood work and computed in ED resists WBC of 6 and 7, hemoglobin 15, platelet count of 208, sodium 138, potassium 4.2, BUN/creatinine of 2/1.067 blood glucose of 121 03/20/2022 pt presenst with bleeding per rectal , pt states he thinks it is coming from his hemorrhoids, he underwent EGD/Colonoscopy with surgery team and results showing antral gastritis and diveticulosis and hemorrhoids ( most likely the source of the bleeding ) check HB in am, and aspirin still on hold till cleared by surgery breathing improved , he follow up with dr. norris his program proposals coordinator , still on iv steroids . he is on 2 liters of oxygen at home Objective - Vital Signs Vital signs: Vital Signs Temp 98.1 F 03/20/22 07:49 Pulse 85 03/20/22 08:52 Resp 17 03/20/22 07:49 BP 127/80 03/20/22 07:49 Pulse Ox 95 03/20/22 08:53 FiO2 Intake & Output 03/19/22 03/20/22 03/20/22 18:59 06:59 18:59 Intake Total 400 Balance 400 Weight 108.862 kg Intake: IV 400 Other: Voiding Method Toilet Toilet # Voids 3 # Bowel Movements 3 - Exam GENERAL: The patient is alert and oriented x3, not in any acute distress. Well developed, well nourished. HEENT: Pupils are round and equally reacting to light. EOMI. No scleral icterus. No conjunctival pallor. Normocephalic, atraumatic. No pharyngeal erythema. No thyromegaly. CARDIOVASCULAR: S1 and S2 present. No murmurs, rubs, or gallops. -PULMONARY: Chest is clear to auscultation, exp wheezing or crackles. ABDOMEN: Soft, nontender, nondistended, normoactive bowel sounds. No palpable organomegaly. MUSCULOSKELETAL: No joint swelling or deformity. EXTREMITIES: No cyanosis, clubbing, or pedal edema. NEUROLOGICAL: Gross neurological examination did not reveal any focal deficits. SKIN: No rashes. no petechiae. - Labs CBC & Chem 7: 03/19/22 19:09 03/20/22 03:46 Labs: Abnormal Lab Results - Last 24 Hours (Table) 03/19/22 03/19/22 03/19/22 Range/Units 11:02 18:25 21:01 Glucose 121 H (74-99) mg/dL POC Glucose (mg/dL) 174 H 172 H (70-110) mg/dL Hemoglobin A1c (0.0-6.0) % 03/20/22 03/20/22 03/20/22 Range/Units 03:46 03:46 06:22 Glucose 158 H (74-99) mg/dL POC Glucose (mg/dL) 148 H (70-110) mg/dL Hemoglobin A1c 7.1 H (0.0-6.0) % Assessment and Plan Assessment: 1. Acute exacerbation COPD - Patient has been placed on Solu-Medrol 60 mg IV every 8 hours; DuoNeb nebulizer treatments 4 times a day and when necessary - Start patient on doxycycline 100 mg every 12 hours - We will continue with home inhaler therapy 2. Bright red blood per rectum; patient will be admitted for monitoring - EGD/Colonoscopy with surgery team and results showing antral gastritis and diveticulosis and hemorrhoids ( most likely the source of the bleeding ) - f/u with surgery team recommendation 3. Hypertension; amlodipine 5 mg daily, Lasix 20 mg daily; Toprol-XL 50 mg daily; lisinopril 10 mg daily 4. Hyperlipidemia; Lipitor 40 mg by mouth daily 5. Diabetes mellitus 2; patient takes metformin; we will reorder; monitor Accu- Cheks before meals and at bedtime with insulin sliding scale 6. Coronary artery disease; stable on home dose of aspirin, statin, beta blockers; we will hold off on aspirin given GI bleed 7. Hyperuricemia/gout; continue with home dose of allopurinol DVT prophylaxis; SCDs only, given GI bleed CODE STATUS; full code
[2022-03-20] MEDS: MONTELUKAST 10 MG TAB PO SCH (21:38)
[2022-03-20] MEDS: TAMSULOSIN 0.4 MG CAP.ER.24H PO SCH (21:38)
[2022-03-21] MEDS: methylPREDNISolone SOD SUCCI 125 MG/2 ML VIAL IV SCH ×4 (00:25→17:12)
[2022-03-21] MEDS: IPRATROPIUM-ALBUTEROL 3 ML NEB INHALATION PRN (03:50)
[2022-03-21 06:31] LABS: Glucose,Whole Blood 189 mg/dL (70-110)
[2022-03-21] MEDS: INSULIN ASPART (NovoLOG) 100 UNIT/ML VIAL SQ SCH ×4 (06:42→20:44)
[2022-03-21] MEDS: SYMBICORT 80-4.5 MCG INHALER INHALATION SCH ×2 (07:12→20:32)
[2022-03-21] MEDS: IPRATROPIUM-ALBUTEROL 3 ML NEB INHALATION SCH ×4 (07:12→20:31)
[2022-03-21 07:14] LABS: Glucose,Whole Blood 189 mg/dL (70-110)
[2022-03-21 09:10] LABS: HCT 40.7 % (39.0-53.0); HGB 14.1 gm/dL (13.0-17.5); MCH 32.3 pg (25.0-35.0); MCHC 34.5 g/dL (31.0-37.0); MCV 93.5 fL (80.0-100.0); Mean Platelet Volume 8.1; Platelet Count 213 k/uL (150-450); RBC 4.35 m/uL (4.30-5.90); WBC 11.3 k/uL (3.8-10.6)
[2022-03-21] MEDS: FUROSEMIDE 20 MG TAB PO SCH (09:11)
[2022-03-21] MEDS: NON FORMULARY DRUG (Potassium Gluconate [Potassium Gluconate Er] 99 MG Tablet) PO SCH (09:11)
[2022-03-21] MEDS: ASCORBIC ACID 500 MG TAB PO SCH (09:11)
[2022-03-21] MEDS: ATORVASTATIN 40 MG TAB PO SCH (09:11)
[2022-03-21] MEDS: CHOLECALCIFEROL 25 MCG (1000 IU) TABLET PO SCH (09:11)
[2022-03-21] MEDS: lisinopriL 10 MG TAB PO SCH (09:11)
[2022-03-21] MEDS: MULTIVITAMINS, THERA 1 EACH TAB PO SCH (09:11)
[2022-03-21] MEDS: MAGNESIUM OXIDE 400 MG TAB PO SCH (09:11)
[2022-03-21] MEDS: amLODIPine 5 MG TAB PO SCH (09:11)
[2022-03-21] MEDS: PANTOPRAZOLE 40 MG TABLET PO SCH (09:11)
[2022-03-21] MEDS: allopurinoL 100 MG TAB PO SCH (09:11)
[2022-03-21] MEDS: METOPROLOL SUCCINATE (ER) 50 MG TAB.ER.24H PO SCH (09:11)
[2022-03-21] MEDS: metFORMIN 500 MG TAB PO SCH ×2 (09:11→20:44)
[2022-03-21] MEDS: LORATADINE 10 MG TAB PO SCH (09:11)
--- NOTE | 2022-03-21 10:25 | P.PN ---
Subjective Progress Note Date: 03/21/22 CHIEF COMPLAINT: Rectal bleeding HISTORY OF PRESENT ILLNESS: Patient status post EGD and colonoscopy showing antral gastritis, diverticulosis, transverse colon polyp internal and external hemorrhoids. This presumed patient most likely had bleeding from the internal and external hemorrhoids. Patient reports tolerating diet. No abdominal pain. He did have a bowel movement last night with no blood noted. He does report a flareup in his hemorrhoids. Afebrile. WBC 11.3 patient on steroids hemoglobin stable at 14.1. Patient reports improvement in his shortness of breath Patient seen and examined with Dr. graff PHYSICAL EXAM: VITAL SIGNS: Reviewed. GENERAL: Well-developed in no acute distress. HEENT: No sclera icterus. Extraocular movements grossly intact. Moist buccal mucosa. Head is atraumatic, normocephalic. ABDOMEN: Soft. Nondistended. Nontender. NEUROLOGIC: Alert and oriented. Cranial nerves II through XII grossly intact. ASSESSMENT: 1. Rectal bleeding resolved. Patient status post EGD and colonoscopy showing antral gastritis, diverticulosis, transverse colon polyp internal and external hemorrhoids PLAN: -Patient can be discharged from surgical standpoint -Recommend that patient takes an OTC fiber supplement daily such as Metamucil or Benefiber -Okay to resume aspirin -Anusol suppositories added for hemorrhoids Physician Residential Leasing Manager note has been reviewed by physician. Signing provider agrees with the documented findings, assessment, and plan of care. Objective - Vital Signs Vital signs: Vital Signs Temp 97.7 F 03/21/22 07:43 Pulse 52 L 03/21/22 09:13 Resp 18 03/21/22 09:13 BP 109/62 03/21/22 07:43 Pulse Ox 97 03/21/22 07:43 FiO2 Intake & Output 03/20/22 03/21/22 03/21/22 18:59 06:59 18:59 Intake Total 400 Balance 400 Intake: IV 400 Other: Voiding Method Toilet Toilet Toilet # Voids 3 5 # Bowel Movements 1 - Labs CBC & Chem 7: 03/21/22 07:46 03/20/22 03:46 Labs: Abnormal Lab Results - Last 24 Hours (Table) 03/20/22 03/20/22 03/20/22 Range/Units 11:24 16:24 19:37 WBC (3.8-10.6) k/uL POC Glucose (mg/dL) 214 H 218 H 227 H (70-110) mg/dL 03/21/22 03/21/22 03/21/22 Range/Units 06:30 07:12 07:46 WBC 11.3 H (3.8-10.6) k/uL POC Glucose (mg/dL) 189 H 189 H (70-110) mg/dL
[2022-03-21 11:09] LABS: Glucose,Whole Blood 235 mg/dL (70-110)
[2022-03-21] MEDS: HYDROCORTISONE SUPPOSITORY 25 MG SUPP RECTAL SCH (12:17)
[2022-03-21 16:11] LABS: Glucose,Whole Blood 254 mg/dL (70-110)
[2022-03-21 19:43] LABS: Glucose,Whole Blood 268 mg/dL (70-110)
[2022-03-21] MEDS: MONTELUKAST 10 MG TAB PO SCH (20:43)
[2022-03-21] MEDS: TAMSULOSIN 0.4 MG CAP.ER.24H PO SCH (20:43)
--- NOTE | 2022-03-21 23:18 | P.PN ---
Subjective 76-year-old male, with history of CAD, hypertension, hyperlipidemia, diabetes mellitus, COPD, presents emergency from chief complaint of shortness breath, rectal bleeding. Patient states that he follow-up with Dr. Matos this week and was scheduled for colonoscopy tomorrow. Patient states that he was told to proceed to emergency room if he had any further bleeding. He states that he had her blood bleeding's morning. Patient denies abdominal pain. Patient states it is normally on oxygen at home he's felt more short of breath so this caused him to present emergency department. Patient denies any chest pain no palpitations. Patient does have underlying asthma, COPD. Patient denies any blood thinners. Patient offers no complaints. Patient did have an episode of bright red blood per rectum while in ED Blood work and computed in ED resists WBC of 6 and 7, hemoglobin 15, platelet count of 208, sodium 138, potassium 4.2, BUN/creatinine of 2/1.067 blood glucose of 121 03/20/2022 pt presenst with bleeding per rectal , pt states he thinks it is coming from his hemorrhoids, he underwent EGD/Colonoscopy with surgery team and results showing antral gastritis and diveticulosis and hemorrhoids ( most likely the source of the bleeding ) check HB in am, and aspirin still on hold till cleared by surgery breathing improved , he follow up with dr. perea his splitter machine , still on iv steroids . he is on 2 liters of oxygen at home 03/21/2022 Patient bleeding rectum stopped. Most likely is secondary to hemorrhoids. Discussed the case with surgery team the care of him for discharge and to resume aspirin pain which is ordered for tomorrow. Patient agreeable with the plan. However patient still has scattered wheezing and decrease her entry. Remains on IV Solu-Medrol, I talked to Dr. Perea his splitter machine over the phone and he is out of town and therefore we are going to consult Dr. Dr. Scales. Possible discharge in 24-48 Objective - Vital Signs Vital signs: Vital Signs Temp 97.7 F 03/21/22 07:43 Pulse 90 03/21/22 11:16 Resp 18 03/21/22 09:13 BP 109/62 03/21/22 07:43 Pulse Ox 97 03/21/22 07:43 FiO2 Intake & Output 03/20/22 03/21/22 03/21/22 18:59 06:59 18:59 Intake Total 400 Balance 400 Intake: IV 400 Other: Voiding Method Toilet Toilet Toilet # Voids 3 5 # Bowel Movements 1 - Exam GENERAL: The patient is alert and oriented x3, not in any acute distress. Well developed, well nourished. HEENT: Pupils are round and equally reacting to light. EOMI. No scleral icterus. No conjunctival pallor. Normocephalic, atraumatic. No pharyngeal erythema. No thyromegaly. CARDIOVASCULAR: S1 and S2 present. No murmurs, rubs, or gallops. -PULMONARY: Chest is clear to auscultation, exp wheezing or crackles. ABDOMEN: Soft, nontender, nondistended, normoactive bowel sounds. No palpable organomegaly. MUSCULOSKELETAL: No joint swelling or deformity. EXTREMITIES: No cyanosis, clubbing, or pedal edema. NEUROLOGICAL: Gross neurological examination did not reveal any focal deficits. SKIN: No rashes. no petechiae. - Labs CBC & Chem 7: 03/21/22 07:46 03/20/22 03:46 Labs: Abnormal Lab Results - Last 24 Hours (Table) 03/20/22 03/20/22 03/21/22 Range/Units 16:24 19:37 06:30 WBC (3.8-10.6) k/uL POC Glucose (mg/dL) 218 H 227 H 189 H (70-110) mg/dL 03/21/22 03/21/22 03/21/22 Range/Units 07:12 07:46 11:06 WBC 11.3 H (3.8-10.6) k/uL POC Glucose (mg/dL) 189 H 235 H (70-110) mg/dL Assessment and Plan Assessment: 1. Acute exacerbation COPD - Patient has been placed on Solu-Medrol 60 mg IV every 8 hours; DuoNeb nebulizer treatments 4 times a day and when necessary - We will continue with home inhaler therapy - Pulmonary consult 2. Bright red blood per rectum; patient will be admitted for monitoring - EGD/Colonoscopy with surgery team and results showing antral gastritis and diveticulosis and hemorrhoids ( most likely the source of the bleeding ) - surgery team cleared the patient for discharge 3. Hypertension; amlodipine 5 mg daily, Lasix 20 mg daily; Toprol-XL 50 mg daily; lisinopril 10 mg daily 4. Hyperlipidemia; Lipitor 40 mg by mouth daily 5. Diabetes mellitus 2; patient takes metformin; we will reorder; monitor Accu- Cheks before meals and at bedtime with insulin sliding scale 6. Coronary artery disease; stable on home dose of aspirin, statin, beta b lockers; we will hold off on aspirin given GI bleed 7. Hyperuricemia/gout; continue with home dose of allopurinol DVT prophylaxis; SCDs only, given GI bleed CODE STATUS; full code
[2022-03-22] MEDS: methylPREDNISolone SOD SUCCI 125 MG/2 ML VIAL IV SCH ×3 (00:33→11:31)
[2022-03-22] MEDS: IPRATROPIUM-ALBUTEROL 3 ML NEB INHALATION PRN (01:44)
[2022-03-22 06:16] LABS: Glucose,Whole Blood 182 mg/dL (70-110)
[2022-03-22] MEDS: INSULIN ASPART (NovoLOG) 100 UNIT/ML VIAL SQ SCH ×2 (06:35→11:31)
[2022-03-22 07:24] LABS: Glucose,Whole Blood 202 mg/dL (70-110)
[2022-03-22 08:06] VITALS: BP 120/67; RESP 16; TEMP 98
[2022-03-22] MEDS: SYMBICORT 80-4.5 MCG INHALER INHALATION SCH (08:28)
[2022-03-22] MEDS: IPRATROPIUM-ALBUTEROL 3 ML NEB INHALATION SCH ×2 (08:28→11:44)
[2022-03-22] MEDS ORDERED: ASPIRIN 81 MG PO SCH (09:00)
[2022-03-22] MEDS: METOPROLOL SUCCINATE (ER) 50 MG TAB.ER.24H PO SCH (09:25)
[2022-03-22] MEDS: allopurinoL 100 MG TAB PO SCH (09:25)
[2022-03-22] MEDS: LORATADINE 10 MG TAB PO SCH (09:25)
[2022-03-22] MEDS: ATORVASTATIN 40 MG TAB PO SCH (09:25)
[2022-03-22] MEDS: metFORMIN 500 MG TAB PO SCH (09:26)
[2022-03-22] MEDS: NON FORMULARY DRUG (Potassium Gluconate [Potassium Gluconate Er] 99 MG Tablet) PO SCH (09:26)
[2022-03-22] MEDS: HYDROCORTISONE SUPPOSITORY 25 MG SUPP RECTAL SCH (09:26)
[2022-03-22] MEDS: MAGNESIUM OXIDE 400 MG TAB PO SCH (09:26)
[2022-03-22] MEDS: MULTIVITAMINS, THERA 1 EACH TAB PO SCH (09:26)
[2022-03-22] MEDS: amLODIPine 5 MG TAB PO SCH (09:26)
[2022-03-22] MEDS: ASCORBIC ACID 500 MG TAB PO SCH (09:26)
[2022-03-22] MEDS: FUROSEMIDE 20 MG TAB PO SCH (09:26)
[2022-03-22] MEDS: lisinopriL 10 MG TAB PO SCH (09:26)
[2022-03-22] MEDS: PANTOPRAZOLE 40 MG TABLET PO SCH (09:26)
[2022-03-22] MEDS: CHOLECALCIFEROL 25 MCG (1000 IU) TABLET PO SCH (09:26)
[2022-03-22 11:25] LABS: Glucose,Whole Blood 310 mg/dL (70-110)
[2022-03-22 11:53] VITALS: PULSE 92
--- NOTE | 2022-03-22 12:50 | P.PN ---
Subjective Progress Note Date: 03/22/22 CHIEF COMPLAINT: Rectal bleeding HISTORY OF PRESENT ILLNESS: Patient status post EGD and colonoscopy showing antral gastritis, diverticulosis, transverse colon polyp internal and external hemorrhoids. This presumed patient most likely had bleeding from the internal and external hemorrhoids. Patient reports tolerating diet. No abdominal pain. Patient reports no further bleeding. Patient reports his breathing has improved. Afebrile. Hemoglobin remained stable at 14.1. Pathology on the colon polyp shows a tubular adenoma. Patient seen and examined with Dr. graff PHYSICAL EXAM: VITAL SIGNS: Reviewed. GENERAL: Well-developed in no acute distress. HEENT: No sclera icterus. Extraocular movements grossly intact. Moist buccal mucosa. Head is atraumatic, normocephalic. ABDOMEN: Soft. Nondistended. Nontender. NEUROLOGIC: Alert and oriented. Cranial nerves II through XII grossly intact. ASSESSMENT: 1. Rectal bleeding resolved. Patient status post EGD and colonoscopy showing antral gastritis, diverticulosis, transverse colon polyp internal and external hemorrhoids PLAN: -Patient can be discharged from surgical standpoint -Recommend that patient takes an OTC fiber supplement daily such as Metamucil or Benefiber -Okay to resume aspirin -Anusol suppositories added for hemorrhoids Physician Physicians And Surgeons note has been reviewed by physician. Signing provider agrees with the documented findings, assessment, and plan of care. Objective - Vital Signs Vital signs: Vital Signs Temp 98.0 F 03/22/22 08:00 Pulse 92 03/22/22 11:53 Resp 16 03/22/22 11:53 BP 120/67 03/22/22 08:00 Pulse Ox 100 03/22/22 08:31 FiO2 Intake & Output 03/21/22 03/22/22 03/22/22 18:59 06:59 18:59 Other: Voiding Method Toilet Toilet # Voids 2 4 - Labs CBC & Chem 7: 03/21/22 07:46 03/20/22 03:46 Labs: Abnormal Lab Results - Last 24 Hours (Table) 03/21/22 03/21/22 03/22/22 Range/Units 16:04 19:42 06:09 POC Glucose (mg/dL) 254 H 268 H 182 H (70-110) mg/dL 03/22/22 03/22/22 Range/Units 07:23 11:23 POC Glucose (mg/dL) 202 H 310 H (70-110) mg/dL
[2022-03-23] MEDS ORDERED: predniSONE 20 MG TAB PO SCH (09:00)
== END 2022-03-22 13:15 | disposition home or self-care (01) | DRG 394 ==
LOC: EC 10:11 → 4SSUR 16:57
PROVIDERS: ADMIT Internal Medicine; ATTEND Internal Medicine
PROC: 0DB78ZX Excision of Stomach, Pylorus, Via Natural or Artificial Opening Endoscopic, Diagnostic (ICD-10-PCS; principal; 2022-03-20 07:50)
PROC: 0DBL8ZX Excision of Transverse Colon, Via Natural or Artificial Opening Endoscopic, Diagnostic (ICD-10-PCS; 2022-03-20 07:50)
DX: K64.8 Other hemorrhoids (principal); J44.1 Chronic obstructive pulmonary disease with (acute) exacerbation; K92.1 Melena; E11.9 Type 2 diabetes mellitus without complications; I10 Essential (primary) hypertension; D12.3 Benign neoplasm of transverse colon; I25.10 Atherosclerotic heart disease of native coronary artery without angina pectoris; K29.50 Unspecified chronic gastritis without bleeding; M10.9 Gout, unspecified; K57.30 Diverticulosis of large intestine without perforation or abscess without bleeding; K64.4 Residual hemorrhoidal skin tags; E78.5 Hyperlipidemia, unspecified; Z28.311 Partially vaccinated for COVID-19; I25.2 Old myocardial infarction; Z86.16 Personal history of COVID-19; Z95.5 Presence of coronary angioplasty implant and graft; Z87.891 Personal history of nicotine dependence; Z79.51 Long term (current) use of inhaled steroids; Z79.82 Long term (current) use of aspirin; Z79.84 Long term (current) use of oral hypoglycemic drugs; Z79.899 Other long term (current) drug therapy
CPT/HCPCS: 36415; 43239; 45385; 71046; 80048; 80053; 83036; 83735; 83880; 84484; 85025; 85027; 85610; 85730; 86850; 86900; 86901; 88305; 93005; 94640; 94760; 96374; 99285

== ENCOUNTER → 2022-03-30 | Outpatient (CLI) | payer MEDICARE ==
[2022-03-30 22:33] LABS: Basophils # (A) 0.02 X 10*3/uL (0.00-0.10); Basophils % (A) 0.2 %; Eosinophils # (A) 0.01 X 10*3/uL (0.04-0.35); Eosinophils % (A) 0.1 %; HCT 41.4 % (39.6-50.0); Immature Grans, Automated 1.8 %; Lymphocytes # (A) 0.81 X 10*3/uL (0.90-5.00); Lymphocytes % (A) 8.8 %; MCH 31.7 pg (27.0-32.0); MCHC 33.8 g/dL (32.0-37.0); MCV 93.9 fL (80.0-97.0); Mean Platelet Volume 9.7 fL (9.5-12.2); Monocytes # (A) 0.37 X 10*3/uL (0.20-1.00); NRBC Per 100 WBC 0 /100 WBCS (0.0-0.0); Neutrophils # (A) 7.87 X 10*3/uL (1.80-7.70); Neutrophils % (A) 85.1 %; Platelet Count 199 X 10*3/uL (140-440); RBC 4.41 X 10*6/uL (4.40-5.60); RDW 13.5 % (11.5-14.5); WBC 9.25 X 10*3/uL (4.50-10.00)
[2022-03-31 13:41] LABS: Alt. alternata IgE Class CLASS 0; Alternaria alternata IgE <0.10 kU/L (<0.10); Asperg. fumagatus IgE <0.10 kU/L (<0.10); Asperg. fumagatus IgE Class CLASS 0; Candida albicans IgE Class CLASS 2; Clad herbarum IgE <0.10 kU/L (<0.10); Clad herbarum IgE Class CLASS 0; Mucor racemosus IgE <0.10 kU/L (<0.10); Mucor racemosus IgE Class CLASS 0; Penicillium chrysogenum IgE <0.10 kU/L (<0.10); Penicillium chrysogenum IgE Cl CLASS 0
== END | disposition home or self-care (01) ==
LOC: LABWHC1 14:58
PROVIDERS: ATTEND Internal Medicine Sleep Medicine
DX: B44.81 Allergic bronchopulmonary aspergillosis (principal)
CPT/HCPCS: 36415; 85025; 86001; 86003; 86606; 86609

== ENCOUNTER → 2022-04-25 | Outpatient (CLI) | payer MEDICARE ==
--- NOTE | 2022-04-25 13:27 | XR ---
EXAM TYPE: LUMBAR SPINE X RAY SERIES COMPARISON: NONE HISTORY: Pain TECHNIQUE: 4 views are submitted. FINDINGS: Alignment is anatomic. The pedicles are intact. The transverse processes are intact. There is no s pondylolysis but the minimal anterolisthesis of L5 relative to S1. Diffuse osteopenia. Vascular calc ifications are noted. Hypertrophic degenerative changes spine. Center IMPRESSION: 1. Multilevel degenerative disc disease and facet arthropathy suspected foraminal encroachment L4-5 L 5-S1. There may be minimal anterior listhesis of L5 relative to S1. Consider follow-up MRI. 2. Diffuse osteopenia..
== END | disposition home or self-care (01) ==
LOC: RADXRMAIN 12:50
PROVIDERS: ATTEND Family Medicine
DX: M85.88 Other specified disorders of bone density and structure, other site (principal)
CPT/HCPCS: 72110

== ENCOUNTER → 2022-05-01 | Outpatient (CLI) | payer MEDICARE ==
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
== END | disposition home or self-care (01) ==
LOC: RADCTMAIN 18:02
PROVIDERS: ATTEND Family Medicine
DX: N40.0 Benign prostatic hyperplasia without lower urinary tract symptoms (principal); R97.20 Elevated prostate specific antigen [PSA]; J98.4 Other disorders of lung
CPT/HCPCS: 74176

== ENCOUNTER → 2022-08-02 | Outpatient (CLI) | payer MEDICARE ==
--- NOTE | 2022-08-03 07:11 | CT ---
EXAMINATION TYPE: CT chest wo con DATE OF EXAM: 08/02/2022 COMPARISON: Chest CT February 23, 2020. Chest x-ray March 19, 2022 HISTORY: emphysema, abnormal chest x-ray CT DLP: 802 mGycm. Automated Exposure Control for Dose Reduction was Utilized. TECHNIQUE: CT scan of the thorax is performed without IV contrast. FINDINGS: LUNGS: Moderate underlying emphysematous change is redemonstrated. There is mild to moderate linear s carring in the right mid to lower lung redemonstrated. Stable 4 mm calcified left upper lobe nodule a xial image 11. Just below this there are 2 small nodules measuring 3 to 4 mm axial image 14 that are grossly stable. No new or enlarging greater than 5 mm pulmonary nodules bilaterally. No pleural effus ion or pneumothorax seen bilaterally. MEDIASTINUM: Lack of IV contrast is noted to limit evaluation for mediastinal and especially hilar ad enopathy. There are no definitive greater than 1 cm new mediastinal lymph nodes. No cardiomegaly or pericardial effusion is seen. Severe three-vessel coronary artery calcification is redemonstrated OTHER: Dependent density consistent with gallbladder sludge and/or small stones. There is 2.2 cm simp le appearing thin-walled cyst in the left kidney posteriorly axial image 74. IMPRESSION: Stable small left upper lobe nodules. No new or enlarging greater than 5 mm pulmonary nod ules. Moderate emphysematous change redemonstrated without acute pulmonary process.
== END | disposition home or self-care (01) ==
LOC: RADCTMAIN 16:03
PROVIDERS: ATTEND Family Medicine
DX: J43.9 Emphysema, unspecified (principal); R91.8 Other nonspecific abnormal finding of lung field; R93.89 Abnormal findings on diagnostic imaging of other specified body structures
CPT/HCPCS: 71250

== ENCOUNTER 2023-05-23 09:23 | Observation (INO) | payer MEDICARE ==
[2023-05-23] MEDS ORDERED: MORPHINE SULFATE 4 MG/ML SYRINGE IVP STA ×2 (09:54→12:57)
[2023-05-23] MEDS ORDERED: IPRATROPIUM-ALBUTEROL 3 ML NEB INHALATION STA (09:54)
--- NOTE | 2023-05-23 09:57 | ED ---
General Adult HPI - General Chief complaint: Chest Pain Stated complaint: rib pain-SOB Time Seen by Provider: 05/23/23 09:48 Source: patient, RN notes reviewed Mode of arrival: ambulatory Limitations: no limitations - History of Present Illness Initial comments: Patient is a pleasant 77-year-old male presenting to the emergency department with difficulty in breathing. Onset was around midnight. Patient does have history of COPD and does use oxygen at home. Patient does have leg edema however this is chronic and unchanged. No Pain. Patient does have discomfort of his right lateral lower ribs. Patient denies any other type of chest discomfort. Discomfort increases with deep breath and cough. - Related Data Home Medications Medication Instructions Recorded Confirmed allopurinoL [Zyloprim] 100 mg PO DAILY 03/02/16 03/19/22 Metoprolol Succinate [Toprol Xl] 50 mg PO DAILY 12/29/17 03/19/22 Tamsulosin HCl [Flomax] 0.4 mg PO HS 12/29/17 03/19/22 Rosuvastatin [Crestor] 20 mg PO DAILY 02/27/19 03/19/22 lisinopriL [Zestril] 10 mg PO DAILY 02/27/19 03/19/22 Pantoprazole [Protonix] 40 mg PO DAILY 03/03/19 03/19/22 Loratadine 10 mg PO DAILY 08/16/20 03/19/22 Montelukast Sodium [Singulair] 10 mg PO HS 08/16/20 03/19/22 Aspirin EC [Ecotrin Low Dose] 81 mg PO DIRECTED 10/10/20 03/19/22 Furosemide [Lasix] 20 mg PO DAILY 12/12/20 03/19/22 Ascorbic Acid [Vitamin C] 500 mg PO DAILY 10/19/21 03/19/22 Budesonide/Formoterol Fumarate 2 puff INHALATION RT-BID 10/19/21 03/19/22 [Symbicort 80-4.5 Mcg Inhaler] Cholecalciferol [Vitamin D3 (25 25 mcg PO DAILY 10/19/21 03/19/22 Mcg = 1000 Iu)] Multivitamins, Thera [Multivitamin 1 tab PO DAILY 10/19/21 03/19/22 (formulary)] Potassium Gluconate [Potassium 99 mg PO DAILY 10/19/21 03/19/22 Gluconate ER] metFORMIN HCL [Glucophage] 500 mg PO BID 10/19/21 03/19/22 Albuterol Inhaler [Ventolin Hfa 2 puff INHALATION RT-Q6H PRN 03/19/22 03/19/22 Inhaler] Ipratropium-Albuterol Nebulize 3 ml INHALATION RT-Q4H PRN 03/19/22 03/19/22 [Duoneb 0.5 mg-3 mg/3 ml Soln] amLODIPine [Norvasc] 5 mg PO DAILY 03/19/22 03/19/22 Previous Rx's Medication Instructions Recorded Magnesium Oxide [Mag-Ox] 400 mg PO DAILY 30 Days #30 tab 12/19/21 Hydrocortisone Suppository 25 mg RECTAL DAILY 5 Days #1 pack 03/22/22 [Anusol-Hc] predniSONE 10 mg PO DIRECTED #40 tab 03/22/22 Allergies Allergy/AdvReac Type Severity Reaction Status Date / Time No Known Allergies Allergy Verified 05/23/23 09:30 Review of Systems ROS Statement: Those systems with pertinent positive or pertinent negative responses have been documented in the HPI. ROS Other: All systems not noted in ROS Statement are negative. Constitutional: Denies: fever Eyes: Denies: eye pain ENT: Denies: ear pain Respiratory: Reports: as per HPI, cough, dyspnea Cardiovascular: Reports: as per HPI Endocrine: Denies: fatigue Gastrointestinal: Denies: abdominal pain Genitourinary: Denies: dysuria Past Medical History Past Medical History: Coronary Artery Disease (CAD), Chest Pain / Angina, COPD, Diabetes Mellitus, GERD/Reflux, GI Bleed, Hyperlipidemia, Hypertension, Myocardial Infarction (PR), Skin Disorder Additional Past Medical History / Comment(s): Hx of rectal bleeding, rectal fissure; gout, bronchitis, uses O2 @ 2L NC at night & prn. +Covid 08/2020. Hx cysts on groin area. Last Myocardial Infarction Date:: approx 2005 History of Any Multi-Drug Resistant Organisms: None Reported Past Surgical History: Heart Catheterization With Stent Additional Past Surgical History / Comment(s): total 3 cardiac stents, surgery for cyst in rectal area, siddharth cataracts, uro lift, cysts removed from testicles and back, colonoscopy, Past Anesthesia/Blood Transfusion Reactions: No Reported Reaction Date of Last Stent Placement:: 2005 Past Psychological History: No Psychological Hx Reported Smoking Status: Former smoker Past Alcohol Use History: Occasional Past Drug Use History: None Reported - Past Family History Father Family Medical History: Cancer Additional Family Medical History / Comment(s): lung cancer Mother Family Medical History: No Reported History Additional Family Medical History / Comment(s): Mother was healthy and lived to be in her 90s. General Exam Limitations: no limitations General appearance: alert, in no apparent distress Head exam: Present: normocephalic Eye exam: Present: normal appearance Respiratory exam: Present: chest wall tenderness (Mild right lower lateral ribs), decreased breath sounds Cardiovascular Exam: Present: tachycardia Expanded Peripheral pulses: 2+: Radial (R), Radial (L), Posterior Tibialis (R), Posterior Tibialis (L) GI/Abdominal exam: Present: soft. Absent: tenderness Extremities exam: Present: pedal edema. Absent: calf tenderness Neurological exam: Present: alert Psychiatric exam: Present: normal affect, normal mood Skin exam: Present: normal color Course Vital Signs 05/23/23 05/23/23 05/23/23 09:24 09:55 10:36 Temperature 99.0 F Pulse Rate 110 H 96 Respiratory 28 H 30 H Rate Blood Pressure 136/82 163/95 O2 Sat by Pulse 92 L 93 L Oximetry 05/23/23 05/23/23 10:43 11:36 Temperature 98.8 F Pulse Rate 96 97 Respiratory 16 Rate Blood Pressure 126/76 O2 Sat by Pulse 93 L Oximetry - Reevaluation(s) Reevaluation #1: 05/23/23 10:13 Repeat EKG interpreted by myself shows sinus rhythm with a rate of 92. PVC is present. Normal intervals. Normal axis. Normal QRS. No acute ST change. EKG Findings - EKG Results: EKG: interpreted by ERMD (Low QRS voltage. PVCs present.), sinus rhythm, normal axis, normal ST/T EKG shows: tachycardia Medical Decision Making - Medical Decision Making Was pt. sent in by a medical professional or institution (, PA, CLINICAL SCIENTIST, urgent care, hospital, or detention...) When possible be specific @ -No Did you speak to anyone other than the patient for history (EMS, parent, family, police, friend...)? What history was obtained from this source @ -No Did you review nursing and triage notes (agree or disagree)? Why? @ -I reviewed and agree with nursing and triage notes Were old charts reviewed (outside hosp., previous admission, EMS record, old EKG, old radiological studies, urgent care reports/EKG's, detention records)? Report findings @ -Previous chest x-ray reviewed Differential Diagnosis (chest pain, altered mental status, abdominal pain women, abdominal pain men, vaginal bleeding, weakness, fever, dyspnea, syncope, headache, dizziness, GI bleed, back pain, seizure, CVA, palpatations, mental health, musculoskeletal)? @ -Differential Dyspnea: Coronary syndrome, arrhythmia, tamponade, asthma, COPD, pulmonary embolism, pneumonia, pneumothorax, pulmonary effusion, anaphylaxis, diabetic ketoacidosis, flailed chest, pulmonary contusion, diaphragmatic rupture, anemia, neuromuscular, this is not meant to be an all-inclusive list. EKG interpreted by me (3pts min.). @ -As above X-rays interpreted by me (1pt min.). @ -Chest x-ray does show some cardiomegaly. Small effusions. Some vascular congestion. I do question increased vascular congestion versus possible early infiltrate right lung CT interpreted by me (1pt min.). @ -None done U/S interpreted by me (1pt. min.). @ -None done What testing was considered but not performed or refused? (CT, X-rays, U/S, labs)? Why? @ -Computed tomography scan ordered with inpatient orders What meds were considered but not given or refused? Why? @ -None Did you discuss the management of the patient with other professionals (professionals i.e. , PA, CLINICAL SCIENTIST, lab, RT, psych nurse, social service director, principal java developer, teacher, transportation officer, pillowcase folder)? Give summary @ -em for admission covering Dr. Vargas Was smoking cessation discussed for >3mins.? @ -No Was critical care preformed (if so, how long)? @ -32 minutes Were there social determinants of health that impacted care today? How? (Homelessness, low income, unemployed, alcoholism, drug addiction, transportation, low edu. Level, literacy, decrease access to med. care, group home, rehab)? @ -No Was there de-escalation of care discussed even if they declined (Discuss DNR or withdrawal of care, Hospice)? DNR status @ -No What co-morbidities impacted this encounter? (DM, HTN, Smoking, COPD, CAD, Cancer, CVA, ARF, Chemo, Hep., AIDS, mental health diagnosis, sleep apnea, morbid obesity)? @ -None Was patient admitted / discharged? Hospital course, mention meds given and route, prescriptions, significant lab abnormalities, going to OR and other pertinent info. @ -Patient reevaluated. Patient does have some improvement with breathing and chest discomfort. Chest discomfort bilateral ribs, not consistent with concern for cardiac disease. Negative troponin. Patient does have COPD. Computed tomography scan chest will be ordered to evaluate for possible unlikely pulmonary embolism or possible infiltrate. Patient will be be admitted. Admission orders written. There is concern for sepsis diagnosed at 11:30 AM. Blood culture and lactic acid and IV antibiotics have all been ordered. Undiagnosed new problem with uncertain prognosis? @ -No Drug Therapy requiring intensive monitoring for toxicity (Heparin, Nitro, Insulin, Cardizem)? @ -No Were any procedures done? @ -No Diagnosis/symptom? @ -cOPD, sepsis Acute, or Chronic, or Acute on Chronic? @ -, Acute Uncomplicated (without systemic symptoms) or Complicated (systemic symptoms)? @ -default Side effects of treatment? @ -No Exacerbation, Progression, or Severe Exacerbation? @ -No Poses a threat to life or bodily function? How? (Chest pain, USA, PR, pneumonia, PE, COPD, DKA, ARF, appy, cholecystitis, CVA, Diverticulitis, Homicidal, Suicidal, threat to staff... and all critical care pts) @ -No - Lab Data Result diagrams: 05/23/23 09:57 05/23/23 09:57 Lab Results 05/23/23 05/23/23 05/23/23 Range/Units 09:57 09:57 09:57 WBC 13.8 H (3.8-10.6) k/uL RBC 5.20 (4.30-5.90) m/uL Hgb 16.4 (13.0-17.5) gm/dL Hct 48.8 (39.0-53.0) % MCV 93.8 (80.0-100.0) fL MCH 31.6 (25.0-35.0) pg MCHC 33.7 (31.0-37.0) g/dL RDW 13.5 (11.5-15.5) % Plt Count 155 (150-450) k/uL MPV 7.7 Neutrophils % 89 % Lymphocytes % 5 % Monocytes % 5 % Eosinophils % 0 % Basophils % 0 % Neutrophils # 12.3 H (1.3-7.7) k/uL Lymphocytes # 0.7 L (1.0-4.8) k/uL Monocytes # 0.7 (0-1.0) k/uL Eosinophils # 0.0 (0-0.7) k/uL Basophils # 0.0 (0-0.2) k/uL PT 10.3 (10.0-12.5) sec INR 0.9 (<1.2) APTT 22.8 (22.0-30.0) sec D-Dimer 0.66 H (<0.60) mg/L FEU Sodium 139 (137-145) mmol/L Potassium 4.2 (3.5-5.1) mmol/L Chloride 99 (98-107) mmol/L Carbon Dioxide 26 (22-30) mmol/L Anion Gap 14 mmol/L BUN 17 (9-20) mg/dL Creatinine 1.07 (0.66-1.25) mg/dL Est GFR (CKD-EPI)AfAm 78 (>60 ml/min/1.73 sqM) Est GFR (CKD-EPI)NonAf 67 (>60 ml/min/1.73 sqM) Glucose 212 H (74-99) mg/dL Plasma Lactic Acid Nakul (0.7-2.0) mmol/L Calcium 9.5 (8.4-10.2) mg/dL Magnesium 1.8 (1.6-2.3) mg/dL Total Bilirubin 1.4 H (0.2-1.3) mg/dL AST 33 (17-59) U/L ALT 26 (4-49) U/L Alkaline Phosphatase 107 (38-126) U/L Troponin I (0.000-0.034) ng/mL NT-Pro-B Natriuret Pep 402 pg/mL Total Protein 6.8 (6.3-8.2) g/dL Albumin 4.3 (3.5-5.0) g/dL 05/23/23 05/23/23 Range/Units 09:57 09:57 WBC (3.8-10.6) k/uL RBC (4.30-5.90) m/uL Hgb (13.0-17.5) gm/dL Hct (39.0-53.0) % MCV (80.0-100.0) fL MCH (25.0-35.0) pg MCHC (31.0-37.0) g/dL RDW (11.5-15.5) % Plt Count (150-450) k/uL MPV Neutrophils % % Lymphocytes % % Monocytes % % Eosinophils % % Basophils % % Neutrophils # (1.3-7.7) k/uL Lymphocytes # (1.0-4.8) k/uL Monocytes # (0-1.0) k/uL Eosinophils # (0-0.7) k/uL Basophils # (0-0.2) k/uL PT (10.0-12.5) sec INR (<1.2) APTT (22.0-30.0) sec D-Dimer (<0.60) mg/L FEU Sodium (137-145) mmol/L Potassium (3.5-5.1) mmol/L Chloride (98-107) mmol/L Carbon Dioxide (22-30) mmol/L Anion Gap mmol/L BUN (9-20) mg/dL Creatinine (0.66-1.25) mg/dL Est GFR (CKD-EPI)AfAm (>60 ml/min/1.73 sqM) Est GFR (CKD-EPI)NonAf (>60 ml/min/1.73 sqM) Glucose (74-99) mg/dL Plasma Lactic Acid Nakul 3.4 H* (0.7-2.0) mmol/L Calcium (8.4-10.2) mg/dL Magnesium (1.6-2.3) mg/dL Total Bilirubin (0.2-1.3) mg/dL AST (17-59) U/L ALT (4-49) U/L Alkaline Phosphatase (38-126) U/L Troponin I <0.012 (0.000-0.034) ng/mL NT-Pro-B Natriuret Pep pg/mL Total Protein (6.3-8.2) g/dL Albumin (3.5-5.0) g/dL Disposition Clinical Impression: COPD (chronic obstructive pulmonary disease), Sepsis Disposition: ADMITTED IP TO THIS HOSP Is patient prescribed a controlled substance at d/c from ED?: No Referrals: Deanna Kate MD [Primary Care Provider] - 1-2 days Time of Disposition: 11:40
[2023-05-23 10:23] LABS: ALT 26 U/L (4-49); AST 33 U/L (17-59); African American GFR (CKD) 78 (>60 ml/min/1.73 sqM); Albumin 4.3 g/dL (3.5-5.0); Alkaline Phosphatase 107 U/L (38-126); Anion Gap 14 mmol/L; Blood Urea Nitrogen 17 mg/dL (9-20); Calcium 9.5 mg/dL (8.4-10.2); Carbon Dioxide 26 mmol/L (22-30); Chloride 99 mmol/L (98-107); Glucose 212 mg/dL (74-99); INR 0.9 (<1.2); Magnesium 1.8 mg/dL (1.6-2.3); Non-African American GFR(CKD) 67 (>60 ml/min/1.73 sqM); Partial Thromboplastin Time 22.8 sec (22.0-30.0); Potassium 4.2 mmol/L (3.5-5.1); Prothrombin Time 10.3 sec (10.0-12.5); Sodium 139 mmol/L (137-145); Total Bilirubin 1.4 mg/dL (0.2-1.3); Total Protein 6.8 g/dL (6.3-8.2)
[2023-05-23 10:27] LABS: Basophils % (A) 0 %; Eosinophils % (A) 0 %; HCT 48.8 % (39.0-53.0); HGB 16.4 gm/dL (13.0-17.5); Lymphocytes # (A) 0.7 k/uL (1.0-4.8); Lymphocytes % (A) 5 %; MCH 31.6 pg (25.0-35.0); MCHC 33.7 g/dL (31.0-37.0); MCV 93.8 fL (80.0-100.0); Mean Platelet Volume 7.7; Monocytes # (A) 0.7 k/uL (0-1.0); Monocytes % (A) 5 %; Neutrophils # (A) 12.3 k/uL (1.3-7.7); Neutrophils % (A) 89 %; Platelet Count 155 k/uL (150-450); RDW 13.5 % (11.5-15.5); WBC 13.8 k/uL (3.8-10.6)
[2023-05-23 10:31] LABS: NT-Pro-B-Type Natriuretic Pept 402 pg/mL
--- NOTE | 2023-05-23 10:44 | XR ---
EXAMINATION TYPE: XR chest 2V DATE OF EXAM: 05/23/2023 10:32 AM CLINICAL INDICATION:Male, 77 years old with history of difficulty breathing; [facility] COMPARISON: Chest radiographs from 03/19/2022. TECHNIQUE: XR chest 2V Frontal and lateral views of the chest. FINDINGS: Lungs/Pleura: No evidence of focal consolidation or pneumothorax. Blunting of the costophrenic angles is present. Pulmonary vascularity: Pulmonary vascular congestion. Heart/mediastinum: Cardiomediastinal silhouette is enlarged and stable. Musculoskeletal: No acute osseous pathology. IMPRESSION: Cardiomegaly, pulmonary vascular congestion and bilateral pleural effusions. Correlate with BNP for c ongestive heart failure.
[2023-05-23] MEDS ORDERED: IPRATROPIUM-ALBUTEROL 3 ML NEB INHALATION PRN (11:34)
[2023-05-23] MEDS ORDERED: methylPREDNISolone SOD SUCCI 125 MG/2 ML VIAL IV STA (11:34)
[2023-05-23] MEDS ORDERED: NALOXONE 0.4 MG/ML 1 ML VIAL IVP PRN (11:34)
[2023-05-23] MEDS ORDERED: AZITHROMYCIN 500 MG in SODIUM CHLORIDE 0.9% 250 ML IVPB STA (11:35)
--- NOTE | 2023-05-23 13:44 | CT ---
EXAMINATION TYPE: CT angio chest DATE OF EXAM: 05/23/2023 COMPARISON: Chest CT August 02, 2022 HISTORY: chest pain, SOB CT DLP: 579.8 mGycm. Automated Exposure Control for Dose Reduction was Utilized. CONTRAST: CTA scan of the thorax is performed with IV Contrast, patient injected with 100 mL of Isovue 300, pul monary embolism protocol. MIP Images are created on CT scanner and reviewed. FINDINGS: LUNGS: Moderate underlying emphysematous change is redemonstrated. There is tiny right pleural effusi on on current study. There is motion artifact particularly in the lower lungs making evaluation at th is level suboptimal. Increased opacities suggest mild alveolar edema bilaterally. There is mild focal linear scarring and/or atelectasis in the right middle and lower lobes. There is new peripheral 1.6 x 1.1 cm right lower lobe nodule or nodular consolidation axial image 97. No pneumothorax seen bilate rally. MEDIASTINUM: Suboptimal study with most dense contrast in the SVC. No central or saddle pulmonary em bolism. Cannot exclude partial occlusive lobar and segmental pulmonary emboli on this study. Some enh ancement aorta without aneurysm or dissection. Moderate to severe three-vessel coronary artery desicc ation and/or stents are redemonstrated There are no greater than 1 cm hilar or mediastinal lymph node s. No cardiomegaly or pericardial effusion is seen. OTHER: No additional significant abnormality is seen. IMPRESSION: 1. Suboptimal study without central saddle pulmonary embolism. Cannot exclude partial occlusive lobar or segmental pulmonary emboli on this exam. Consider repeat CT study in 24 hours after hydration to further evaluate. 2. Moderate emphysematous change with tiny right pleural effusion. Mild lower lung alveolar edema sug gests fluid overload state. Possible 1.6 x 1.1 cm peripheral right lower lobe pulmonary nodule. Nonem ergent CT follow-up advised.
[2023-05-23] MEDS: methylPREDNISolone SOD SUCCI 125 MG/2 ML VIAL IV SCH ×3 (13:52→23:05)
[2023-05-23] MEDS ORDERED: SODIUM CHLORIDE 0.9% 500 ML 500 ML IV ONE (14:52)
[2023-05-23] MEDS ORDERED: DEXTROSE 50% SYRINGE 50 ML IVP PRN ×2 (15:01)
[2023-05-23] MEDS: IPRATROPIUM-ALBUTEROL 3 ML NEB INHALATION SCH ×3 (15:56→19:57)
[2023-05-23] MEDS: HEPARIN SODIUM,PORCINE 5,000 UNIT/ML 1 ML VIAL SQ SCH ×2 (16:01→23:05)
[2023-05-23 17:01] LABS: Glucose,Whole Blood 229 mg/dL (70-110)
[2023-05-23] MEDS: INSULIN ASPART (NovoLOG) 100 UNIT/ML VIAL SQ SCH ×2 (18:31→20:38)
[2023-05-23] MEDS: SYMBICORT 80-4.5 MCG INHALER INHALATION SCH (19:57)
[2023-05-23] MEDS: TAMSULOSIN 0.4 MG CAP.ER.24H PO SCH (20:33)
[2023-05-23] MEDS: MONTELUKAST 10 MG TAB PO SCH (20:33)
[2023-05-23 20:37] LABS: Glucose,Whole Blood 347 mg/dL (70-110)
[2023-05-23] MEDS: ACETAMINOPHEN TAB 325 MG TAB PO PRN (20:41)
[2023-05-23] MEDS ORDERED: MAGNESIUM SULFATE-D5W PMX 1 GM in DEXTROSE/WATER 1 100ML.BAG IVPB ONE (23:42)
[2023-05-23] MEDS ORDERED: FUROSEMIDE 10 MG/ML 2 ML VIAL IV ONE (23:50)
--- NOTE | 2023-05-23 23:59 | P.HPIM ---
History of Present Illness H&P Date: 05/23/23 Chief Complaint: Difficulty in breathing Patient is a 77-year-old male with a known history of coronary disease with stent placement x 3, COPD, chronic hypoxic respiratory failure on 2 L oxygen via nasal cannula, hypertension, hyperlipidemia, GERD, diabetes type 2 non-insulin- dependent and prior history of smoking presents to ER with complaints of difficulty in breathing. Patient states that his symptoms started around midnight he was having right lower chest pain with deep breathing. No complaints of fever or chills. No nausea vomiting abdominal pain or diarrhea. Patient does have chronic leg edema and denies any recent increase in size. Patient states that she did follow-up with Dr. Perea's conventions assistant in the clinic and was started on steroid Course Which He Is Still on. On Admission Chest X-Ray Showed Cardiomegaly, Pulmonary Vascular Congestion and Bilateral Pleural Effusions. Correlate with BNP for Congestive Heart Failure. Laboratory Showed WBC 13.8 Hemoglobin 16.4 and Platelets 155 Neutrophils 12.3 D-Dimer 0.66 Sodium 139 Potassium 4.2 Chloride 99 Bicarb Is 66 BUN 17 and Creatinine 1.07 Blood Sugar 212 and Lactic Acid 3.4 mmHg and Total Bilirubin Level Is 1.4 proBNP 402, influenza A, B and RSV and COVID-19 PCR is pending. And Magnesium 1.8 CTA chest showed suboptimal study without central saddle PE. Cannot exclude partial occlusion lobar segmental pulmonary emboli on this exam. Moderate emphysematous change with the right tiny pleural effusion. Mild lower lung hilar edema versus fluid overload state. Possible 1.6 x 1.1 cm peripheral right lower lobe pulmonary nodule. Nonemergent CT follow-up advised. Review of Systems Constitutional: Patient denies any fever or chills . no Generalized weakness. Abdomen: Patient denied any nausea or vomiting or abd. pain Cardiovascular: Patient complains of right lower chest discomfort with deep breathing, shortness of breath, no palpitations. No worsening leg swelling. Respiratory: patient cough without sputum production. Positive for shortness of breath Neurologic: Patient denied any numbness or tingling or headache. Musculoskeletal: Patient denies any complaints of joint swelling or deformity. Skin: Negative Psychiatric: Negative Endocrine: No heat or cold intolerance. No recent weight gain. Genitourinary: No dysuria or hematuria. All other 14 point ROS negative except the above Past Medical History Past Medical History: Coronary Artery Disease (CAD), Chest Pain / Angina, COPD, Diabetes Mellitus, GERD/Reflux, GI Bleed, Hyperlipidemia, Hypertension, Myocardial Infarction (MA), Skin Disorder Additional Past Medical History / Comment(s): Hx of rectal bleeding, rectal fissure; gout, bronchitis, uses O2 @ 2L NC at night & prn. +Covid 08/2020. Hx cysts on groin area. Last Myocardial Infarction Date:: approx 2005 History of Any Multi-Drug Resistant Organisms: None Reported Past Surgical History: Heart Catheterization With Stent Additional Past Surgical History / Comment(s): total 3 cardiac stents, surgery for cyst in rectal area, siddharth cataracts, uro lift, cysts removed from testicles and back, colonoscopy, Past Anesthesia/Blood Transfusion Reactions: No Reported Reaction Date of Last Stent Placement:: 2005 Past Psychological History: No Psychological Hx Reported Smoking Status: Former smoker Past Alcohol Use History: Occasional Past Drug Use History: None Reported - Past Family History Father Family Medical History: Cancer Additional Family Medical History / Comment(s): lung cancer Mother Family Medical History: No Reported History Additional Family Medical History / Comment(s): Mother was healthy and lived to be in her 90s. Medications and Allergies Home Medications Medication Instructions Recorded Confirmed Type allopurinoL [Zyloprim] 100 mg PO DAILY 03/02/16 05/23/23 History Metoprolol Succinate [Toprol Xl] 50 mg PO DAILY 12/29/17 05/23/23 History Tamsulosin HCl [Flomax] 0.4 mg PO HS 12/29/17 05/23/23 History Rosuvastatin [Crestor] 20 mg PO DAILY 02/27/19 05/23/23 History lisinopriL [Zestril] 10 mg PO DAILY 02/27/19 05/23/23 History Pantoprazole [Protonix] 40 mg PO DAILY 03/03/19 05/23/23 History Montelukast Sodium [Singulair] 10 mg PO HS 08/16/20 05/23/23 History Aspirin EC [Ecotrin Low Dose] 81 mg PO DAILY 10/10/20 05/23/23 History Furosemide [Lasix] 20 mg PO DAILY 12/12/20 05/23/23 History Ascorbic Acid [Vitamin C] 500 mg PO DAILY 10/19/21 05/23/23 History Cholecalciferol [Vitamin D3 (25 25 mcg PO DAILY 10/19/21 05/23/23 History Mcg = 1000 Iu)] Multivitamins, Thera [Multivitamin 1 tab PO DAILY 10/19/21 05/23/23 History (formulary)] metFORMIN HCL [Glucophage] 500 mg PO BID 10/19/21 05/23/23 History Albuterol Inhaler [Ventolin Hfa 2 puff INHALATION RT-Q6H PRN 03/19/22 05/23/23 History Inhaler] Ipratropium-Albuterol Nebulize 3 ml INHALATION RT-Q4H PRN 03/19/22 05/23/23 History [Duoneb 0.5 mg-3 mg/3 ml Soln] amLODIPine [Norvasc] 5 mg PO DAILY 03/19/22 05/23/23 History Empagliflozin [Jardiance] 25 mg PO DAILY 05/23/23 05/23/23 History Fluticasone/Umeclidin/Vilanter 1 puff INHALATION RT-DAILY 05/23/23 05/23/23 History [Trelegy Ellipta 200-62.5-25] predniSONE [Deltasone] 20 mg PO DAILY 05/23/23 05/23/23 History Allergies Allergy/AdvReac Type Severity Reaction Status Date / Time No Known Allergies Allergy Verified 05/23/23 12:12 Physical Exam Vitals: Vital Signs Temp Pulse Resp BP Pulse Ox 05/23/23 13:35 99.2 F 106 H 16 143/111 93 L 05/23/23 11:36 98.8 F 97 16 126/76 93 L 05/23/23 10:43 96 05/23/23 10:36 96 05/23/23 09:55 30 H 163/95 93 L 05/23/23 09:24 99.0 F 110 H 28 H 136/82 92 L Intake and Output 05/22/23 05/23/23 05/23/23 22:59 06:59 14:59 Other: Weight 113.398 kg PHYSICAL EXAMINATION: Patient is lying in the bed, mild distress due to shortness of breath, awake alert and oriented.. HEENT: Normocephalic. Neck is supple. Pupils reactive. Nostrils clear. Oral cavity is moist. Neck reveals no JVD, carotid bruits, or thyromegaly. CHEST EXAMINATION: Trachea is central. Symmetrical expansion. Bibasilar diminished sounds and scattered rhonchi expiratory wheezing. CARDIAC: Normal S1, S2 with no gallops. No murmurs ABDOMEN: Soft. Bowel sounds present. Nontender. No organomegaly. No abdominal bruits. Extremities: Bilateral lower extremity 2+ edema. No clubbing or cyanosis Neurologically awake, alert, oriented x3 with well-coordinated movements. No focal deficits noted Skin: No rash or skin lesions. Psychiatric: Coperative. Nonsuicidal, Musculoskeletal: No joint swelling or deformity. Normal range of motion. Results CBC & Chem 7: 05/23/23 09:57 05/23/23 09:57 Labs: Abnormal Lab Results - Last 24 Hours (Table) 05/23/23 05/23/23 05/23/23 Range/Units 09:57 09:57 09:57 WBC 13.8 H (3.8-10.6) k/uL Neutrophils # 12.3 H (1.3-7.7) k/uL Lymphocytes # 0.7 L (1.0-4.8) k/uL D-Dimer 0.66 H (<0.60) mg/L FEU Glucose 212 H (74-99) mg/dL Plasma Lactic Acid Nakul (0.7-2.0) mmol/L Total Bilirubin 1.4 H (0.2-1.3) mg/dL 05/23/23 05/23/23 Range/Units 09:57 13:13 WBC (3.8-10.6) k/uL Neutrophils # (1.3-7.7) k/uL Lymphocytes # (1.0-4.8) k/uL D-Dimer (<0.60) mg/L FEU Glucose (74-99) mg/dL Plasma Lactic Acid Nakul 3.4 H* 4.6 H* (0.7-2.0) mmol/L Total Bilirubin (0.2-1.3) mg/dL Thrombosis Risk Factor Assmnt - DVT/VTE Prophylaxis DVT/VTE Prophylaxis: Pharmacologic Prophylaxis ordered Assessment and Plan Assessment: Shortness of breath secondary to acute COPD exacerbation Small right pleural effusion and lower lung alveolar edema Acute on chronic hypoxic respiratory failure. Patient is on 2 L oxygen via nasal cannula at home. Requiring 3 L on admission. Lactic acidosis Elevated D-dimer. CTA chest showed no evidence of saddle emboli. Hyperglycemia uncontrolled diabetes type 2 [id number] Possible 1.6 x 1.1 cm. Peripheral right lower lobe pulmonary nodules. Nonemergent CT follow-up Coronary artery disease history of stent placement x 3 Hyperlipidemia History of gout Hypertension GI and DVT prophylaxis with PPI and heparin subcu Plan: Patient will be continued on oxygen supplementation. Continue with IV Solu-Medrol 60 mg every 6 hourly and started on Symbicort. Patient does take Trelegy Ellipta at home. Continue with azithromycin Patient will be started on Lasix 20 mg IV twice daily. He does take Lasix 20 mg daily by mouth at home. Continue aspirin statins and metoprolol Continue with insulin sliding scale and metformin is on hold due to lactic acidosis. Follow-up closely. Prognosis is guarded with multiple medical problems and comorbid conditions. Time with Patient: Greater than 30
[2023-05-24 02:48] LABS: Basophils % (A) 0 %; Eosinophils % (A) 0 %; HGB 14.5 gm/dL (13.0-17.5); Lymphocytes # (A) 0.3 k/uL (1.0-4.8); Lymphocytes % (A) 3 %; MCH 31.5 pg (25.0-35.0); MCHC 33.1 g/dL (31.0-37.0); MCV 95.3 fL (80.0-100.0); Monocytes # (A) 0.3 k/uL (0-1.0); Monocytes % (A) 3 %; Neutrophils # (A) 9.8 k/uL (1.3-7.7); Neutrophils % (A) 94 %; Platelet Count 150 k/uL (150-450); RBC 4.61 m/uL (4.30-5.90); RDW 13.3 % (11.5-15.5); WBC 10.4 k/uL (3.8-10.6)
[2023-05-24 03:03] LABS: African American GFR (CKD) 72 (>60 ml/min/1.73 sqM); Anion Gap 13 mmol/L; Blood Urea Nitrogen 20 mg/dL (9-20); Calcium 8.8 mg/dL (8.4-10.2); Carbon Dioxide 22 mmol/L (22-30); Chloride 99 mmol/L (98-107); Glucose 268 mg/dL (74-99); Non-African American GFR(CKD) 62 (>60 ml/min/1.73 sqM); Potassium 4.1 mmol/L (3.5-5.1); Sodium 134 mmol/L (137-145)
[2023-05-24 06:14] LABS: Glucose,Whole Blood 231 mg/dL (70-110)
[2023-05-24] MEDS: ACETAMINOPHEN TAB 325 MG TAB PO PRN ×4 (06:25→21:52)
[2023-05-24] MEDS: PANTOPRAZOLE 40 MG TABLET PO SCH (06:26)
[2023-05-24] MEDS: INSULIN ASPART (NovoLOG) 100 UNIT/ML VIAL SQ SCH ×4 (06:26→21:37)
[2023-05-24] MEDS: methylPREDNISolone SOD SUCCI 125 MG/2 ML VIAL IV SCH ×3 (06:27→16:54)
[2023-05-24] MEDS: AZITHROMYCIN 500 MG in SODIUM CHLORIDE 0.9% 250 ML IVPB SCH (08:36)
[2023-05-24] MEDS: METOPROLOL SUCCINATE (ER) 50 MG TAB.ER.24H PO SCH (08:37)
[2023-05-24] MEDS: HEPARIN SODIUM,PORCINE 5,000 UNIT/ML 1 ML VIAL SQ SCH ×2 (08:37→16:54)
[2023-05-24] MEDS: allopurinoL 100 MG TAB PO SCH (08:37)
[2023-05-24] MEDS: FUROSEMIDE 10 MG/ML 2 ML VIAL IV SCH ×2 (08:37→21:37)
[2023-05-24] MEDS: ATORVASTATIN 40 MG TAB PO SCH (08:37)
[2023-05-24] MEDS: ASPIRIN 81 MG PO SCH (08:37)
[2023-05-24] MEDS: IPRATROPIUM-ALBUTEROL 3 ML NEB INHALATION SCH ×4 (09:20→20:15)
[2023-05-24] MEDS: SYMBICORT 80-4.5 MCG INHALER INHALATION SCH ×2 (09:20→20:15)
[2023-05-24 11:48] LABS: Glucose,Whole Blood 280 mg/dL (70-110)
[2023-05-24 16:35] LABS: Glucose,Whole Blood 246 mg/dL (70-110)
[2023-05-24 20:06] LABS: Glucose,Whole Blood 307 mg/dL (70-110)
[2023-05-24 21:03] VITALS: TEMP 97.7
[2023-05-24] MEDS: MONTELUKAST 10 MG TAB PO SCH (21:37)
[2023-05-24] MEDS: TAMSULOSIN 0.4 MG CAP.ER.24H PO SCH (21:37)
[2023-05-25] MEDS: ACETAMINOPHEN TAB 325 MG TAB PO PRN ×2 (04:26→12:06)
[2023-05-25 06:56] LABS: Glucose,Whole Blood 235 mg/dL (70-110)
[2023-05-25] MEDS: INSULIN ASPART (NovoLOG) 100 UNIT/ML VIAL SQ SCH ×2 (07:00→12:03)
[2023-05-25] MEDS: methylPREDNISolone SOD SUCCI 125 MG/2 ML VIAL IV SCH ×3 (07:00→12:04)
[2023-05-25] MEDS ORDERED: INSULIN DETEMIR (LEVEMIR) 100 UNIT/ML SYR SQ SCH (07:00)
[2023-05-25] MEDS: PANTOPRAZOLE 40 MG TABLET PO SCH (07:00)
[2023-05-25 07:25] LABS: African American GFR (CKD) 71 (>60 ml/min/1.73 sqM); Anion Gap 16 mmol/L; Blood Urea Nitrogen 28 mg/dL (9-20); Calcium 9.2 mg/dL (8.4-10.2); Carbon Dioxide 23 mmol/L (22-30); Chloride 100 mmol/L (98-107); Glucose 239 mg/dL (74-99); Magnesium 2.5 mg/dL (1.6-2.3); Non-African American GFR(CKD) 61 (>60 ml/min/1.73 sqM); Potassium 3.8 mmol/L (3.5-5.1); Sodium 139 mmol/L (137-145)
[2023-05-25 08:15] VITALS: BP 121/66; RESP 16
[2023-05-25] MEDS: METOPROLOL SUCCINATE (ER) 50 MG TAB.ER.24H PO SCH (08:19)
[2023-05-25] MEDS: ASPIRIN 81 MG PO SCH (08:19)
[2023-05-25] MEDS: ATORVASTATIN 40 MG TAB PO SCH (08:19)
[2023-05-25] MEDS: allopurinoL 100 MG TAB PO SCH (08:19)
[2023-05-25] MEDS: AZITHROMYCIN 500 MG in SODIUM CHLORIDE 0.9% 250 ML IVPB SCH (08:20)
[2023-05-25] MEDS: FUROSEMIDE 10 MG/ML 2 ML VIAL IV SCH (08:21)
[2023-05-25] MEDS: HEPARIN SODIUM,PORCINE 5,000 UNIT/ML 1 ML VIAL SQ SCH ×2 (08:42)
[2023-05-25] MEDS: SYMBICORT 80-4.5 MCG INHALER INHALATION SCH (09:27)
[2023-05-25] MEDS: IPRATROPIUM-ALBUTEROL 3 ML NEB INHALATION SCH ×2 (09:27→12:27)
--- NOTE | 2023-05-25 10:13 | P.PN ---
Subjective Progress Note Date: 05/24/23 Patient is a 77-year-old male with a known history of coronary disease with stent placement x 3, COPD, chronic hypoxic respiratory failure on 2 L oxygen via nasal cannula, hypertension, hyperlipidemia, GERD, diabetes type 2 [id number] and prior history of smoking presents to ER with complaint s of difficulty in breathing. Patient states that his symptoms started around midnight he was having right lower chest pain with deep breathing. No complaints of fever or chills. No nausea vomiting abdominal pain or diarrhea. Patient does have chronic leg edema and denies any recent increase in size. Patient states that she did follow-up with Dr. Perea's linux system administrator in the clinic and was started on steroid Course Which He Is Still on. On Admission Chest X-Ray Showed Cardiomegaly, Pulmonary Vascular Congestion and Bilateral Pleural Effusions. Correlate with BNP for Congestive Heart Failure. Laboratory Showed WBC 13.8 Hemoglobin 16.4 and Platelets 155 Neutrophils 12.3 D-Dimer 0.66 Sodium 139 Potassium 4.2 Chloride 99 Bicarb Is 66 BUN 17 and Creatinine 1.07 Blood Sugar 212 and Lactic Acid 3.4 mmHg and Total Bilirubin Level Is 1.4 proBNP 402, influenza A, B and RSV and COVID-19 PCR is pending. And Magnesium 1.8 CTA chest showed suboptimal study without central saddle PE. Cannot exclude partial occlusion lobar segmental pulmonary emboli on this exam. Moderate emphysematous change with the right tiny pleural effusion. Mild lower lung hilar edema versus fluid overload state. Possible 1.6 x 1.1 cm peripheral right lower lobe pulmonary nodule. Nonemergent CT follow-up advised. 05/24/2023 Patient is seen in follow-up today and has been admitted for concerns of right lower pleural effusion as well as possible pneumonia along with COPD exacerbation. Patient is currently on 3 L via nasal cannula and reports has outpatient as needed oxygen that he wears at night. Patient follows with Dr. Perea pulmonary outpatient although not sure if he is in town and will consult pulmonary and appreciate input and recommendations. Patient continues on IV steroids along with breathing inhalational treatments and reports to feeling somewhat improved. Patient also to continue on IV Lasix twice daily as patient did have some mild generalized lower extremity edema bilaterally. Will continue on IV Lasix for another 24 hours and follow-up with labs and monitor for improvements in lower edema Review of systems: Constitutional: No reports of fatigue, fever, or chills Cardiovascular: No reports of chest pain or palpitations Respiratory: reports of shortness of breath , occasional cough GI: No reports of nausea, vomiting, or diarrhea : No reports of dysuria or retention Neurovascular: No reports of weakness or numbness All medications have been reviewed PHYSICAL EXAMINATION: Patient is lying in the bed, mild distress due to shortness of breath, awake alert and oriented.. HEENT: Normocephalic. Neck is supple. Pupils reactive. Nostrils clear. Oral cavity is moist. Neck reveals no JVD, carotid bruits, or thyromegaly. CHEST EXAMINATION: Trachea is central. Symmetrical expansion. Bibasilar diminished sounds and scattered rhonchi expiratory wheezing. CARDIAC: Normal S1, S2 with no gallops. No murmurs ABDOMEN: Soft. Bowel sounds present. Nontender. No organomegaly. No abdominal bruits. Extremities: Bilateral lower extremity 2+ edema. No clubbing or cyanosis Neurologically awake, alert, oriented x3 with well-coordinated movements. No focal deficits noted Skin: No rash or skin lesions. Psychiatric: Coperative. Nonsuicidal, Musculoskeletal: No joint swelling or deformity. Normal range of motion. Assessment: Shortness of breath secondary to acute COPD exacerbation Small right pleural effusion and lower lung alveolar edema Acute on chronic hypoxic respiratory failure. Patient is on 2 L oxygen via nasal cannula at home. Requiring 3 L on admission. Lactic acidosis Elevated D-dimer. CTA chest showed no evidence of saddle emboli. Hyperglycemia uncontrolled diabetes type 2 [id number] Possible 1.6 x 1.1 cm. Peripheral right lower lobe pulmonary nodules. Nonemergent CT follow-up Coronary artery disease history of stent placement x 3 Hyperlipidemia History of gout Hypertension GI and DVT prophylaxis with PPI and heparin subcu Plan: Patient will be continued on oxygen supplementation. Continue with IV Solu-Medrol 60 mg every 6 hourly and started on Symbicort. Patient does take Trelegy Ellipta at home. Continue with azithromycin Patient will be started on Lasix 20 mg IV twice daily. He does take Lasix 20 mg daily by mouth at home. Continue aspirin statins and metoprolol Continue with insulin sliding scale and metformin is on hold due to lactic acidosis. Follow-up closely. Prognosis is guarded with multiple medical problems and comorbid conditions. The impression and plan of care has been dictated by Namita Chavarria, Nurse Practitioner as directed. Dr. Seth MD I have performed a history and examination and MDM of this patient, discussed the same with the dictator, and agree with the dictator's assessment and plan as written ,documented as a scribe. Based on total visit time, I have performed more than 50% of the visit. Objective - Vital Signs Vital signs: Vital Signs Temp 97.2 F L 05/24/23 08:33 Pulse 90 05/24/23 12:20 Resp 18 05/24/23 11:36 BP 127/87 05/24/23 11:36 Pulse Ox 96 05/24/23 11:36 FiO2 Intake & Output 05/23/23 05/24/23 05/24/23 18:59 06:59 18:59 Output Total 1850 875 Balance -1850 -875 Weight 113.398 kg 113.398 kg Output: Urine 1850 875 Other: Voiding Method Urinal # Voids 3 - Labs CBC & Chem 7: 05/24/23 02:24 05/25/23 06:55 Labs: Abnormal Lab Results - Last 24 Hours (Table) 05/23/23 05/23/23 05/23/23 Range/Units 13:13 16:15 16:59 Neutrophils # (1.3-7.7) k/uL Lymphocytes # (1.0-4.8) k/uL Sodium (137-145) mmol/L Glucose (74-99) mg/dL POC Glucose (mg/dL) 229 H (70-110) mg/dL Hemoglobin A1c (<=6.0) % Plasma Lactic Acid Nakul 4.6 H* 5.1 H* (0.7-2.0) mmol/L Procalcitonin (0.02-0.09) ng/mL 05/23/23 05/23/23 05/23/23 Range/Units 19:38 20:35 22:49 Neutrophils # (1.3-7.7) k/uL Lymphocytes # (1.0-4.8) k/uL Sodium (137-145) mmol/L Glucose (74-99) mg/dL POC Glucose (mg/dL) 347 H (70-110) mg/dL Hemoglobin A1c (<=6.0) % Plasma Lactic Acid Nakul 3.7 H* 3.9 H* (0.7-2.0) mmol/L Procalcitonin (0.02-0.09) ng/mL 05/24/23 05/24/23 05/24/23 Range/Units 02:24 02:24 02:24 Neutrophils # 9.8 H (1.3-7.7) k/uL Lymphocytes # 0.3 L (1.0-4.8) k/uL Sodium 134 L (137-145) mmol/L Glucose 268 H (74-99) mg/dL POC Glucose (mg/dL) (70-110) mg/dL Hemoglobin A1c 8.5 H (<=6.0) % Plasma Lactic Acid Nakul (0.7-2.0) mmol/L Procalcitonin (0.02-0.09) ng/mL 05/24/23 05/24/23 05/24/23 Range/Units 02: 02:24 05:21 Neutrophils # (1.3-7.7) k/uL Lymphocytes # (1.0-4.8) k/uL Sodium (137-145) mmol/L Glucose (74-99) mg/dL POC Glucose (mg/dL) (70-110) mg/dL Hemoglobin A1c (<=6.0) % Plasma Lactic Acid Nakul 2.8 H* 2.7 H* (0.7-2.0) mmol/L Procalcitonin 1.19 H (0.02-0.09) ng/mL 05/24/23 05/24/23 05/24/23 Range/Units 06:12 09:05 11:47 Neutrophils # (1.3-7.7) k/uL Lymphocytes # (1.0-4.8) k/uL Sodium (137-145) mmol/L Glucose (74-99) mg/dL POC Glucose (mg/dL) 231 H 280 H (70-110) mg/dL Hemoglobin A1c (<=6.0) % Plasma Lactic Acid Nakul 2.4 H* (0.7-2.0) mmol/L Procalcitonin (0.02-0.09) ng/mL 05/24/23 Range/Units 11:59 Neutrophils # (1.3-7.7) k/uL Lymphocytes # (1.0-4.8) k/uL Sodium (137-145) mmol/L Glucose (74-99) mg/dL POC Glucose (mg/dL) (70-110) mg/dL Hemoglobin A1c (<=6.0) % Plasma Lactic Acid Nakul 2.4 H* (0.7-2.0) mmol/L Procalcitonin (0.02-0.09) ng/mL
[2023-05-25 11:37] LABS: Glucose,Whole Blood 325 mg/dL (70-110)
[2023-05-25 12:46] VITALS: PULSE 88
--- NOTE | 2023-05-27 10:48 | P.DS ---
Providers Date of admission: 05/23/23 11:35 Expected date of discharge: 05/25/23 Attending physician: Chas Pitts MD Consults: 05/24/23 10:46 Consult Physician Routine Consulting Provider: Terry Perea Consult Reason/Comments: copd Do you want consulting provider notified?: Yes Primary care physician: Deanna Rustarmen [facility] Course: Final diagnosis Shortness of breath secondary to acute COPD exacerbation Small right pleural effusion and lower lung alveolar edema Acute on chronic hypoxic respiratory failure. Patient is on 2 L oxygen via nasal cannula at home. Requiring 3 L on admission. Lactic acidosis Elevated D-dimer. CTA chest showed no evidence of saddle emboli. Hyperglycemia uncontrolled diabetes type 2 [id number] Possible 1.6 x 1.1 cm. Peripheral right lower lobe pulmonary nodules. Nonemergent CT follow-up Coronary artery disease history of stent placement x 3 Hyperlipidemia History of gout Hypertension GI and DVT prophylaxis Discharge disposition Patient is being discharged in a stable condition with guarded prognosis to home. Patient will follow-up with Dr. Oneil Orona in the outpatient setting upon discharge. Patient is to continue with oral Zithromax for the next few days and a prednisone taper and outpatient follow-up with pulmonary as scheduled. patient may need repeat CT imaging in the next few months on nodules noted on CT. Total time taken is greater than 35 minutes. Hospital course This is a 77-year-old male who was recently admitted with cough and increased shortness of breath with COPD exacerbation. Pro-calcitonin was also slightly elevated with concerns of pneumonia. Influenza, RSV, Covid testing was negative. Patient reports he just had pneumonia vaccine 1-2 weeks ago. Patient was started on IV Lasix as he also had some lower extremity edema noted and chronically takes Lasix 20 mg daily outpatient and will make twice daily with outpatient labs and follow-up. Patient encouraged to continue using compression stockings and elevate while at rest. Patient showed some improvement and will continue on 2-3 L via nasal cannula outpatient which she has at home a prednisone taper and short course of Zithromax to complete the course. Patient needs outpatient follow-up with pulmonary Dr. Perea. There were some noted right lower lobe pulmonary nodules that may require repeat CT imaging in the outpat ient setting. Currently no reports of chest pain, shortness of breath, or palpitations. Patient is afebrile. No reports of nausea or vomiting and patient is tolerating diet. Patient will be discharged home today. Physical exam: Gen: This is a 77-year-old male who is awake, alert and oriented 3, well- developed, well-nourished, obese HEENT: Head is atraumatic, normocephalic. Pupils equal, round. Sclerae is anicteric. NECK: Supple. No JVD. No lymphadenopathy. No thyromegaly. LUNGS: diminished breath sounds bilaterally with mild expiratory wheezes and some coarse rhonchi. No intercostal retractions. HEART: Regular rate and rhythm. No murmur. ABDOMEN: Soft.obese. Bowel sounds are present. No masses. No tenderness. EXTREMITIES: mild bilateral lower extremity edema and pedal edema noted, nonpitting.. No calf tenderness. NEUROLOGICAL: Patient is awake, alert and oriented x3. Cranial nerves 2 through 12 are grossly intact. Please refer to medication reconciliation sheet for a list of medications. The impression and plan of care has been dictated by Namita Chavarria, Nurse Practitioner as directed. Dr. Brianna MD I have performed a history and examination and MDM of this patient, discussed the same with the dictator, and agree with the dictator's assessment and plan as written ,documented as a scribe. Based on total visit time, I have performed more than 50% of the visit. Patient Condition at Discharge: Stable Plan - Discharge Summary Discharge Rx Participant: Yes New Discharge Prescriptions: New Potassium Chloride [K-Tab ER] 20 meq PO DAILY 30 Days #30 tab Azithromycin [Zithromax] 500 mg PO DAILY 4 Days #4 tab Ipratropium-Albuterol Nebulize [Duoneb 0.5 mg-3 mg/3 ml Soln] 3 ml INHALATION RT-QID #100 each predniSONE 10 mg PO DIRECTED #30 tab Acetaminophen Tab [Tylenol] 650 mg PO Q4HR PRN tab PRN Reason: Mild Pain Or Fever > 100.5 Continue allopurinoL [Zyloprim] 100 mg PO DAILY Tamsulosin HCl [Flomax] 0.4 mg PO HS Metoprolol Succinate [Toprol Xl] 50 mg PO DAILY Rosuvastatin [Crestor] 20 mg PO DAILY Pantoprazole [Protonix] 40 mg PO DAILY Aspirin EC [Ecotrin Low Dose] 81 mg PO DAILY Multivitamins, Thera [Multivitamin (formulary)] 1 tab PO DAILY Ipratropium-Albuterol Nebulize [Duoneb 0.5 mg-3 mg/3 ml Soln] 3 ml INHALATION RT-Q4H PRN PRN Reason: Shortness Of Breath Montelukast Sodium [Singulair] 10 mg PO HS Cholecalciferol [Vitamin D3 (25 Mcg = 1000 Iu)] 25 mcg PO DAILY Ascorbic Acid [Vitamin C] 500 mg PO DAILY metFORMIN HCL [Glucophage] 500 mg PO BID Albuterol Inhaler [Ventolin Hfa Inhaler] 2 puff INHALATION RT-Q6H PRN PRN Reason: Shortness Of Breath amLODIPine [Norvasc] 5 mg PO DAILY Empagliflozin [Jardiance] 25 mg PO DAILY Fluticasone/Umeclidin/Vilanter [Trelegy Ellipta 200-62.5-25] 1 puff INHALATION RT-DAILY predniSONE [Deltasone] 20 mg PO DAILY Changed Furosemide [Lasix] 20 mg PO BID #60 tab Discontinued lisinopriL [Zestril] 10 mg PO DAILY Discharge Medication List allopurinoL [Zyloprim] 100 mg PO DAILY 03/02/16 [History] Metoprolol Succinate [Toprol Xl] 50 mg PO DAILY 12/29/17 [History] Tamsulosin HCl [Flomax] 0.4 mg PO HS 12/29/17 [History] Rosuvastatin [Crestor] 20 mg PO DAILY 02/27/19 [History] Pantoprazole [Protonix] 40 mg PO DAILY 03/03/19 [History] Montelukast Sodium [Singulair] 10 mg PO HS 08/16/20 [History] Aspirin EC [Ecotrin Low Dose] 81 mg PO DAILY 10/10/20 [History] Ascorbic Acid [Vitamin C] 500 mg PO DAILY 10/19/21 [History] Cholecalciferol [Vitamin D3 (25 Mcg = 1000 Iu)] 25 mcg PO DAILY 10/19/21 [History] Multivitamins, Thera [Multivitamin (formulary)] 1 tab PO DAILY 10/19/21 [History] metFORMIN HCL [Glucophage] 500 mg PO BID 10/19/21 [History] Albuterol Inhaler [Ventolin Hfa Inhaler] 2 puff INHALATION RT-Q6H PRN 03/19/22 [History] Ipratropium-Albuterol Nebulize [Duoneb 0.5 mg-3 mg/3 ml Soln] 3 ml INHALATION RT-Q4H PRN 03/19/22 [History] amLODIPine [Norvasc] 5 mg PO DAILY 03/19/22 [History] Empagliflozin [Jardiance] 25 mg PO DAILY 05/23/23 [History] Fluticasone/Umeclidin/Vilanter [Trelegy Ellipta 200-62.5-25] 1 puff INHALATION RT-DAILY 05/23/23 [History] predniSONE [Deltasone] 20 mg PO DAILY 05/23/23 [History] Acetaminophen Tab [Tylenol] 650 mg PO Q4HR PRN tab 05/25/23 [Rx] Azithromycin [Zithromax] 500 mg PO DAILY 4 Days #4 tab 05/25/23 [Rx] Furosemide [Lasix] 20 mg PO BID #60 tab 05/25/23 [Rx] Ipratropium-Albuterol Nebulize [Duoneb 0.5 mg-3 mg/3 ml Soln] 3 ml INHALATION RT-QID #100 each 05/25/23 [Rx] Potassium Chloride [K-Tab ER] 20 meq PO DAILY 30 Days #30 tab 05/25/23 [Rx] predniSONE 10 mg PO DIRECTED #30 tab 05/25/23 [Rx] Follow up Appointment(s)/Referral(s): Deanna Kate MD [Primary Care Provider] - 1-2 days (office will call you on sunday to schedule appointment.) Terry Perea MD [STAFF PHYSICIAN] - 1 Week (please call office for appointment, office currently closed.) Ambulatory/Diagnostic Orders: Basic Metabolic Panel [LAB.AMB] Time Frame: 3 Days, Location: None Selected Patient Instructions/Handouts: Dyspnea (DC), Lactic Acidosis (GEN) Discharge Disposition: HOME SELF-CARE
== END 2023-05-25 14:28 | disposition home or self-care (01) ==
LOC: EC 09:23 → 4SSUR 11:35 → 3SCARD 17:41 → 1SOBS 05-24 12:25
PROVIDERS: ADMIT Internal Medicine; ATTEND Internal Medicine
DX: J44.1 Chronic obstructive pulmonary disease with (acute) exacerbation (principal); I25.10 Atherosclerotic heart disease of native coronary artery without angina pectoris; K21.9 Gastro-esophageal reflux disease without esophagitis; E78.5 Hyperlipidemia, unspecified; I10 Essential (primary) hypertension; J90 Pleural effusion, not elsewhere classified; J81.1 Chronic pulmonary edema; J96.21 Acute and chronic respiratory failure with hypoxia; E87.20 Acidosis, unspecified; R79.89 Other specified abnormal findings of blood chemistry; E11.65 Type 2 diabetes mellitus with hyperglycemia; R91.8 Other nonspecific abnormal finding of lung field; M10.9 Gout, unspecified; I25.2 Old myocardial infarction; Z20.822 Contact with and (suspected) exposure to COVID-19; Z86.16 Personal history of COVID-19; Z87.891 Personal history of nicotine dependence; Z95.5 Presence of coronary angioplasty implant and graft; Z99.81 Dependence on supplemental oxygen; Z79.4 Long term (current) use of insulin; Z79.51 Long term (current) use of inhaled steroids; Z79.82 Long term (current) use of aspirin; Z79.84 Long term (current) use of oral hypoglycemic drugs; Z79.899 Other long term (current) drug therapy
CPT/HCPCS: 96366 ×2; 96372 ×4; 96376 ×4; 96365; 96367; 96375 ×2; 99285; 36415; 94640 ×6; 93005; 85379; 83880; 80053; 80048 ×2; 83605 ×3; 83735 ×2; 84484; 85025 ×2; 85610; 85730; 87040; 83036 ×2; 84145; 87636; 71046; 71275; G0378 ×4; J2270; J1644 ×3; J1940 ×2; J2930 ×3; J0456 ×3; J3475; Q9967

== ENCOUNTER 2023-06-02 01:24 | Inpatient (IN) | payer MEDICARE ==
[2023-06-02] MEDS: IPRATROPIUM-ALBUTEROL 3 ML NEB INHALATION STA (01:37)
[2023-06-02] MEDS: methylPREDNISolone SOD SUCCI 125 MG/2 ML VIAL IV STA (01:51)
[2023-06-02 02:03] LABS: Basophils # (A) 0.1 k/uL (0-0.2); Basophils % (A) 0 %; Eosinophils % (A) 0 %; HCT 48.3 % (39.0-53.0); Lymphocytes # (A) 0.4 k/uL (1.0-4.8); Lymphocytes % (A) 2 %; MCH 31.2 pg (25.0-35.0); MCHC 33.1 g/dL (31.0-37.0); MCV 94.3 fL (80.0-100.0); Mean Platelet Volume 7.6; Monocytes # (A) 0.5 k/uL (0-1.0); Monocytes % (A) 2 %; Neutrophils % (A) 95 %; RBC 5.12 m/uL (4.30-5.90); RDW 13.2 % (11.5-15.5); WBC 19.1 k/uL (3.8-10.6)
[2023-06-02] MEDS: SODIUM CHLORIDE 0.9% 500 ML 500 ML IV ONE ×2 (02:04→11:15)
[2023-06-02 02:09] LABS: Platelet Count 308 k/uL (150-450)
[2023-06-02] MEDS: METOPROLOL SUCCINATE (ER) 50 MG TAB.ER.24H PO STA (02:17)
[2023-06-02 02:18] LABS: ALT 51 U/L (4-49); AST 74 U/L (17-59); African American GFR (CKD) 53 (>60 ml/min/1.73 sqM); Albumin 3.2 g/dL (3.5-5.0); Alkaline Phosphatase 170 U/L (38-126); Anion Gap 25 mmol/L; Blood Urea Nitrogen 31 mg/dL (9-20); Carbon Dioxide 14 mmol/L (22-30); Chloride 97 mmol/L (98-107); Glucose 202 mg/dL (74-99); Magnesium 2.4 mg/dL (1.6-2.3); Non-African American GFR(CKD) 45 (>60 ml/min/1.73 sqM); Potassium 4.9 mmol/L (3.5-5.1); Sodium 136 mmol/L (137-145); Total Bilirubin 1.1 mg/dL (0.2-1.3); Total Protein 6.1 g/dL (6.3-8.2)
[2023-06-02 02:19] LABS: Prothrombin Time 10.7 sec (10.0-12.5)
[2023-06-02 02:24] LABS: Partial Thromboplastin Time 19.2 sec (22.0-30.0)
[2023-06-02 02:27] LABS: NT-Pro-B-Type Natriuretic Pept 477 pg/mL
[2023-06-02] MEDS: SODIUM CHLORIDE 0.9% 500 ML 500 ML IV STA ×2 (03:10→05:20)
[2023-06-02] MEDS ORDERED: PNEUMONIA PROTOCOL UTILIZED 1 EACH MISC PO PRN (03:19)
--- NOTE | 2023-06-02 03:23 | ED ---
General Adult HPI - General Chief complaint: Shortness of Breath Stated complaint: SOB Time Seen by Provider: 06/02/23 01:29 Source: patient, EMS, RN notes reviewed, old records reviewed Mode of arrival: EMS - History of Present Illness Initial comments: Patient is a 77-year-old male presents emergency Department complaining of dyspnea. Has a history of COPD, CHF, diabetes, hypertension, atrial flutter is not on blood thinners. He was recently admitted last week and discharged home. Diagnosed with pneumonia and discharged home on steroids, antibiotics. Returns for continued shortness of breath that has worsened since he went home. As having right lower chest pain with deep breathing which is similar to previous episodes. Presents for continued worsening symptoms. Is chronically on 2 L nasal cannula at home. Was having significant increased work of breathing prior to arrival was placed on CPAP by EMS. Denies any chest pain other than the right-sided chest discomfort which comes and goes. Denies any nausea or vomiting. Presents for further evaluation at this time. States he has been compliant with medications however is uncertain if he took them yesterday morning. States his shortness of breath has worsened since being discharged. - Related Data Home Medications Medication Instructions Recorded Confirmed allopurinoL [Zyloprim] 100 mg PO DAILY 03/02/16 05/23/23 Metoprolol Succinate [Toprol Xl] 50 mg PO DAILY 12/29/17 05/23/23 Tamsulosin HCl [Flomax] 0.4 mg PO HS 12/29/17 05/23/23 Rosuvastatin [Crestor] 20 mg PO DAILY 02/27/19 05/23/23 Pantoprazole [Protonix] 40 mg PO DAILY 03/03/19 05/23/23 Montelukast Sodium [Singulair] 10 mg PO HS 08/16/20 05/23/23 Aspirin EC [Ecotrin Low Dose] 81 mg PO DAILY 10/10/20 05/23/23 Ascorbic Acid [Vitamin C] 500 mg PO DAILY 10/19/21 05/23/23 Cholecalciferol [Vitamin D3 (25 25 mcg PO DAILY 10/19/21 05/23/23 Mcg = 1000 Iu)] Multivitamins, Thera [Multivitamin 1 tab PO DAILY 10/19/21 05/23/23 (formulary)] metFORMIN HCL [Glucophage] 500 mg PO BID 10/19/21 05/23/23 Albuterol Inhaler [Ventolin Hfa 2 puff INHALATION RT-Q6H PRN 03/19/22 05/23/23 Inhaler] Ipratropium-Albuterol Nebulize 3 ml INHALATION RT-Q4H PRN 03/19/22 05/23/23 [Duoneb 0.5 mg-3 mg/3 ml Soln] amLODIPine [Norvasc] 5 mg PO DAILY 03/19/22 05/23/23 Empagliflozin [Jardiance] 25 mg PO DAILY 05/23/23 05/23/23 Fluticasone/Umeclidin/Vilanter 1 puff INHALATION RT-DAILY 05/23/23 05/23/23 [Trelegy Ellipta 200-62.5-25] predniSONE [Deltasone] 20 mg PO DAILY 05/23/23 05/23/23 Previous Rx's Medication Instructions Recorded Acetaminophen Tab [Tylenol] 650 mg PO Q4HR PRN tab 05/25/23 Azithromycin [Zithromax] 500 mg PO DAILY 4 Days #4 tab 05/25/23 Furosemide [Lasix] 20 mg PO BID #60 tab 05/25/23 Ipratropium-Albuterol Nebulize 3 ml INHALATION RT-QID #100 each 05/25/23 [Duoneb 0.5 mg-3 mg/3 ml Soln] Potassium Chloride [K-Tab ER] 20 meq PO DAILY 30 Days #30 tab 05/25/23 predniSONE 10 mg PO DIRECTED #30 tab 05/25/23 Allergies Allergy/AdvReac Type Severity Reaction Status Date / Time No Known Allergies Allergy Verified 05/23/23 12:12 Review of Systems ROS Statement: Those systems with pertinent positive or pertinent negative responses have been documented in the HPI. Review of Systems: CONST: Denies fever EYES: Denies blurry vision ENT: Denies nasal congestion C/V: Denies Chest pain RESP: Endorses shortness of breath GI: Denies abdominal pain : Denies dysuria SKIN: Denies rash. MSK: Denies joint pain. NEURO: Denies headache ROS Other: All systems not noted in ROS Statement are negative. Past Medical History Past Medical History: Coronary Artery Disease (CAD), Chest Pain / Angina, COPD, Diabetes Mellitus, GERD/Reflux, GI Bleed, Hyperlipidemia, Hypertension, Myocardial Infarction ([place]), Skin Disorder Additional Past Medical History / Comment(s): Hx of rectal bleeding, rectal fissure; gout, bronchitis, uses O2 @ 2L NC at night & prn. +Covid 08/2020. Hx cysts on groin area. Last Myocardial Infarction Date:: approx 2005 History of Any Multi-Drug Resistant Organisms: None Reported Past Surgical History: Heart Catheterization With Stent Additional Past Surgical History / Comment(s): total 3 cardiac stents, surgery for cyst in rectal area, siddharth cataracts, uro lift, cysts removed from testicles and back, colonoscopy, Past Anesthesia/Blood Transfusion Reactions: No Reported Reaction Date of Last Stent Placement:: 2005 Past Psychological History: No Psychological Hx Reported Smoking Status: Former smoker Past Alcohol Use History: Occasional Past Drug Use History: None Reported - Past Family History Father Family Medical History: Cancer Additional Family Medical History / Comment(s): lung cancer Mother Family Medical History: No Reported History Additional Family Medical History / Comment(s): Mother was healthy and lived to be in her 90s. General Exam - General Exam Comments Initial Comments: General: Appears in moderate respiratory distress. HEAD: Normal with no signs of head trauma. EYES: PERRLA, EOMI, conjunctiva normal, no discharge. ENT: Hearing grossly intact, normal oropharynx. RESPIRATORY: Reduced breath sounds bilaterally with end expiratory wheezing. Hypoxic on CPAP but this improves on BiPAP. Increased work of breathing. C/V: Tachycardic. S1 and S2 auscultated, symmetrical lower extremity pitting edema, peripheral pulses 2+ and intact throughout ABD: Abd is soft, nontender, nondistended EXT: Normal range of motion, no obvious deformity SKIN: No rashes or lesions observed on exposed skin. NEURO: Alert and oriented 4. Course Vital Signs 06/02/23 06/02/23 06/02/23 01:26 01:31 01:35 Temperature 97.3 F L Pulse Rate 128 H Respiratory 32 H 32 H Rate Blood Pressure 144/84 O2 Sat by Pulse 93 L Oximetry Fraction of 100 40 Inspired Oxygen (FIO2) 06/02/23 06/02/23 06/02/23 01:40 01:45 01:51 Temperature Pulse Rate 125 H 134 H Respiratory Rate Blood Pressure O2 Sat by Pulse Oximetry Fraction of 60 Inspired Oxygen (FIO2) 06/02/23 06/02/23 06/02/23 02:05 03:04 04:30 Temperature Pulse Rate 128 H 141 H Respiratory 22 22 Rate Blood Pressure 111/72 133/81 O2 Sat by Pulse 96 95 Oximetry Fraction of 60 Inspired Oxygen (FIO2) Medical Decision Making - Medical Decision Making Was pt. sent in by a medical professional or institution (ADWOA Garza, GYROSCOPIC ENGINEERING TECHNICIAN, urgent care, hospital, or care home...) When possible be specific @ -No Did you speak to anyone other than the patient for history (EMS, parent, family, police, friend...)? What history was obtained from this source @ -No Did you review nursing and triage notes (agree or disagree)? Why? @ -I reviewed and agree with nursing and triage notes Were old charts reviewed (outside hosp., previous admission, EMS record, old EKG, old radiological studies, urgent care reports/EKG's, care home records)? Report findings @ -Old charts reviewed Differential Diagnosis (chest pain, altered mental status, abdominal pain women, abdominal pain men, vaginal bleeding, weakness, fever, dyspnea, syncope, headache, dizziness, GI bleed, back pain, seizure, CVA, palpatations, mental health, musculoskeletal)? @ -Differential Dyspnea: Coronary syndrome, arrhythmia, tamponade, asthma, COPD, pulmonary embolism, pneumonia, pneumothorax, pulmonary effusion, anaphylaxis, diabetic ketoacidosis, flailed chest, pulmonary contusion, diaphragmatic rupture, anemia, neuromuscular, this is not meant to be an all-inclusive list. EKG interpreted by me (3pts min.). @ -As above X-rays interpreted by me (1pt min.). @ -Chest x-ray shows right-sided pleural effusion which is worse compared to previous chest x-ray. Possible compression atelectasis. CT interpreted by me (1pt min.). @ -CT PE is negative for pulmonary embolism but does show large right-sided pleural effusion with compressive atelectasis as well as suspected right-sided pneumonia. U/S interpreted by me (1pt. min.). @ -None done What testing was considered but not performed or refused? (CT, X-rays, U/S, labs)? Why? @ -None What meds were considered but not given or refused? Why? @ -None Did you discuss the management of the patient with other professionals (professionals i.e. ADWOA Garza, GYROSCOPIC ENGINEERING TECHNICIAN, lab, RT, psych nurse, social services coordinator, cranberry bog supervisor, teacher, forest officer, rehabilitation case coordinator)? Give summary @ -I spoke with the admitting team, KARLEY Breaux of [facility] who accepted the patient. Pulmonology consulted. Was smoking cessation discussed for >3mins.? @ -No Was critical care preformed (if so, how long)? @ -Yes, 38 minutes. Were there social determinants of health that impacted care today? How? (Homelessness, low income, unemployed, alcoholism, drug addiction, transportation, low edu. Level, literacy, decrease access to med. care, correction, rehab)? @ -No Was there de-escalation of care discussed even if they declined (Discuss DNR or withdrawal of care, Hospice)? DNR status @ -No What co-morbidities impacted this encounter? (DM, HTN, Smoking, COPD, CAD, Cancer, CVA, ARF, Chemo, Hep., AIDS, mental health diagnosis, sleep apnea, morb id obesity)? @ -None Was patient admitted / discharged? Hospital course, mention meds given and route, prescriptions, significant lab abnormalities, going to OR and other pertinent info. @ -Based on the patient's presentation and physical exam, presents with acute on chronic hypoxic respiratory failure. Appears to be secondary to COPD and possibly CHF or pleural effusion or infectious etiology. We'll obtain cardiopulmonary workup. He was in agreement this plan. He was on CPAP upon arrival and was immediately transitioned to BiPAP with goal oxygen saturations of 92--94%. Patient is tachycardic at this time and appears mildly dehydrated and he will receive a small amount of IV fluids. He also did not take his metoprolol yesterday and he will be given a dose of his normal 50 mg metoprolol. Given a breathing treatment as well as a dose steroids. Patient was in agreement with this plan. EKG shows sinus tachycardia. Labs are remarkable for leukocytosis of 19.1, which is likely related to both infection as well as being on steroids at home. Patient has an acute kidney injury at this time. Slightly dehydrated with a lactic acid of 2.4. Troponin is indeterminate. BNP is not significantly elevated. Vital signs negative. Chest x-ray does show findings concerning for pleural effusion however we will obtain CT of patient remains tachycardic with some increased work of breathing. CT PE last visit was inconclusive. On reevaluation after CT, patient's heart rate is improved, he is resting comfortably at this time on BiPAP.CT reveals no PE but does show compressive atelectasis, pneumonia, large right-sided pleural effusion. Patient be admitted on BiPAP for hypoxic respiratory failure. He was in agreement this plan. Patient is receiving IV antibiotics to failed outpatient management. He'll be given a dose of Zosyn as well as azithromycin. We'll hold additional IV fluids at this time as has a history of CHF. He was in agreement this plan. Patient's heart rate is improved following metoprolol.Patient was not given 30 mL per KG fluid boluses he does have evidence of fluid overload state. We will carefully reevaluate for additional IV fluids. He did receive a total of [address] and [address] I spoke with the admitting team, KARLEY Breaux of [facility] who accepted the patient. Pulmonology consulted. Patient later entered A. fib with RVR after being admitted. Patient already rec eived a dose of his normal morning metoprolol. Current A. fib likely secondary to underlying processes. Patient will receive IV metoprolol at this time to attempt additional control. Patient in agreement this plan. Patient Patient believes hehave a history of GI bleed and was previously on blood thinners stopped. Therefore we will hold these at this time and continue with DVT prophylaxis. Cardiology consulted.Metoprolol did not work after multiple pushes, we will trial one more fluid bolus of 500 mL at this time as it is possibly related to insensible losses of infection however as stated above we will closely monitor his the patient does appear fluid overloaded. Patient will be placed on a Cardizem drip. Undiagnosed new problem with uncertain prognosis? @ -No Drug Therapy requiring intensive monitoring for toxicity (Heparin, Nitro, Insulin, Cardizem)? @ -No Were any procedures done? @ -No Diagnosis/symptom? @ -Hypoxic respiratory failure likely secondary to pneumonia, pleural effusion, COPD requiring BiPAP Acute, or Chronic, or Acute on Chronic? @ -Acute Uncomplicated (without systemic symptoms) or Complicated (systemic symptoms)? @ -Complicated Side effects of treatment? @ -No Exacerbation, Progression, or Severe Exacerbation? @ -No Poses a threat to life or bodily function? How? (Chest pain, [place], [place], pneumonia, PE, COPD, DKA, ARF, appy, cholecystitis, CVA, Diverticulitis, Homicidal, Suicidal, threat to staff... and all critical care pts) @ -yes Diagnosis/symptom? @ -A. fib with RVR Acute, or Chronic, or Acute on Chronic? @ -Acute on chronic Uncomplicated (without systemic symptoms) or Complicated (systemic symptoms)? @ -Complicated Side effects of treatment? @ -none Exacerbation, Progression, or Severe Exacerbation] @ -no Poses a threat to life or bodily function? @ -yes - Lab Data Result diagrams: 06/02/23 01:39 06/02/23 01:39 Lab Results 06/02/23 06/02/23 06/02/23 Range/Units 01:39 01:39 01:39 WBC 19.1 H (3.8-10.6) k/uL RBC 5.12 (4.30-5.90) m/uL Hgb 16.0 (13.0-17.5) gm/dL Hct 48.3 (39.0-53.0) % MCV 94.3 (80.0-100.0) fL MCH 31.2 (25.0-35.0) pg MCHC 33.1 (31.0-37.0) g/dL RDW 13.2 (11.5-15.5) % Plt Count 308 D (150-450) k/uL MPV 7.6 Neutrophils % 95 % Lymphocytes % 2 % Monocytes % 2 % Eosinophils % 0 % Basophils % 0 % Neutrophils # 18.0 H (1.3-7.7) k/uL Lymphocytes # 0.4 L (1.0-4.8) k/uL Monocytes # 0.5 (0-1.0) k/uL Eosinophils # 0.0 (0-0.7) k/uL Basophils # 0.1 (0-0.2) k/uL PT 10.7 (10.0-12.5) sec INR 1.0 (<1.2) APTT 19.2 L (22.0-30.0) sec Sodium 136 L (137-145) mmol/L Potassium 4.9 (3.5-5.1) mmol/L Chloride 97 L (98-107) mmol/L Carbon Dioxide 14 L (22-30) mmol/L Anion Gap 25 mmol/L BUN 31 H (9-20) mg/dL Creatinine 1.47 H (0.66-1.25) mg/dL Est GFR (CKD-EPI)AfAm 53 (>60 ml/min/1.73 sqM) Est GFR (CKD-EPI)NonAf 45 (>60 ml/min/1.73 sqM) Glucose 202 H (74-99) mg/dL Lactic Ac Sepsis Rflx Plasma Lactic Acid Nakul (0.7-2.0) mmol/L Calcium 9.0 (8.4-10.2) mg/dL Magnesium 2.4 H (1.6-2.3) mg/dL Total Bilirubin 1.1 (0.2-1.3) mg/dL AST 74 H (17-59) U/L ALT 51 H (4-49) U/L Alkaline Phosphatase 170 H (38-126) U/L Troponin I (0.000-0.034) ng/mL NT-Pro-B Natriuret Pep 477 pg/mL Total Protein 6.1 L (6.3-8.2) g/dL Albumin 3.2 L (3.5-5.0) g/dL Influenza Type A (PCR) (Not Detectd) Influenza Type B (PCR) (Not Detectd) RSV (PCR) (Not Detectd) SARS-CoV-2 (PCR) (Not Detectd) 06/02/23 06/02/23 06/02/23 Range/Units 01:39 01:39 01:40 WBC (3.8-10.6) k/uL RBC (4.30-5.90) m/uL Hgb (13.0-17.5) gm/dL Hct (39.0-53.0) % MCV (80.0-100.0) fL MCH (25.0-35.0) pg MCHC (31.0-37.0) g/dL RDW (11.5-15.5) % Plt Count (150-450) k/uL MPV Neutrophils % % Lymphocytes % % Monocytes % % Eosinophils % % Basophils % % Neutrophils # (1.3-7.7) k/uL Lymphocytes # (1.0-4.8) k/uL Monocytes # (0-1.0) k/uL Eosinophils # (0-0.7) k/uL Basophils # (0-0.2) k/uL PT (10.0-12.5) sec INR (<1.2) APTT (22.0-30.0) sec Sodium (137-145) mmol/L Potassium (3.5-5.1) mmol/L Chloride (98-107) mmol/L Carbon Dioxide (22-30) mmol/L Anion Gap mmol/L BUN (9-20) mg/dL Creatinine (0.66-1.25) mg/dL Est GFR (CKD-EPI)AfAm (>60 ml/min/1.73 sqM) Est GFR (CKD-EPI)NonAf (>60 ml/min/1.73 sqM) Glucose (74-99) mg/dL Lactic Ac Sepsis Rflx Plasma Lactic Acid Nakul 2.4 H* (0.7-2.0) mmol/L Calcium (8.4-10.2) mg/dL Magnesium (1.6-2.3) mg/dL Total Bilirubin (0.2-1.3) mg/dL AST (17-59) U/L ALT (4-49) U/L Alkaline Phosphatase (38-126) U/L Troponin I 0.034 (0.000-0.034) ng/mL NT-Pro-B Natriuret Pep pg/mL Total Protein (6.3-8.2) g/dL Albumin (3.5-5.0) g/dL Influenza Type A (PCR) Not Detected (Not Detectd) Influenza Type B (PCR) Not Detected (Not Detectd) RSV (PCR) Not Detected (Not Detectd) SARS-CoV-2 (PCR) Not Detected (Not Detectd) 06/02/23 Range/Units 02:53 WBC (3.8-10.6) k/uL RBC (4.30-5.90) m/uL Hgb (13.0-17.5) gm/dL Hct (39.0-53.0) % MCV (80.0-100.0) fL MCH (25.0-35.0) pg MCHC (31.0-37.0) g/dL RDW (11.5-15.5) % Plt Count (150-450) k/uL MPV Neutrophils % % Lymphocytes % % Monocytes % % Eosinophils % % Basophils % % Neutrophils # (1.3-7.7) k/uL Lymphocytes # (1.0-4.8) k/uL Monocytes # (0-1.0) k/uL Eosinophils # (0-0.7) k/uL Basophils # (0-0.2) k/uL PT (10.0-12.5) sec INR (<1.2) APTT (22.0-30.0) sec Sodium (137-145) mmol/L Potassium (3.5-5.1) mmol/L Chloride (98-107) mmol/L Carbon Dioxide (22-30) mmol/L Anion Gap mmol/L BUN (9-20) mg/dL Creatinine (0.66-1.25) mg/dL Est GFR (CKD-EPI)AfAm (>60 ml/min/1.73 sqM) Est GFR (CKD-EPI)NonAf (>60 ml/min/1.73 sqM) Glucose (74-99) mg/dL Lactic Ac Sepsis Rflx Y Plasma Lactic Acid Nakul (0.7-2.0) mmol/L Calcium (8.4-10.2) mg/dL Magnesium (1.6-2.3) mg/dL Total Bilirubin (0.2-1.3) mg/dL AST (17-59) U/L ALT (4-49) U/L Alkaline Phosphatase (38-126) U/L Troponin I (0.000-0.034) ng/mL NT-Pro-B Natriuret Pep pg/mL Total Protein (6.3-8.2) g/dL Albumin (3.5-5.0) g/dL Influenza Type A (PCR) (Not Detectd) Influenza Type B (PCR) (Not Detectd) RSV (PCR) (Not Detectd) SARS-CoV-2 (PCR) (Not Detectd) - EKG Data -: EKG Interpreted by Me EKG Comments: 12-lead Electrocardiogram Interpretation Note EKG was reviewed and interpreted by myself. 12-lead ECG performed at 0132 is interpreted by me as revealing sinus tachycardia at a rate of 129 beats per minute. Byars is normal. [place] interval is 174 ms, QRS ration is 73 ms, QTc is 369 ms.. There were no ST or T wave abnormalities to suggest myocardial ischemia or injury. R wave progression across the precordium was satisfactory. By my interpretation this EKG is non-diagnostic for acute ischemia. 12-lead Electrocardiogram Interpretation Note EKG was reviewed and interpreted by myself. 12-lead ECG performed at 0444 is interpreted by me as revealing atrial fibrillation with RVR at a rate of 152 b eats per minute. Byars is normal. QRS duration is 82 ms, QTc is 374 ms.. There were no ST or T wave abnormalities to suggest myocardial ischemia or injury. R wave progression across the precordium was satisfactory. By my interpretation this EKG is non-diagnostic for acute ischemia. Critical Care Time Critical Care Time: Yes Total Critical Care Time: 38 Disposition Clinical Impression: Hypoxic respiratory failure, COPD (chronic obstructive pulmonary disease), Pneumonia, Pleural effusion, ERIC (acute kidney injury), Atrial fibrillation with RVR Disposition: ADMITTED IP TO THIS HOSP Condition: Serious Time of Disposition: 04:01
--- NOTE | 2023-06-02 03:38 | XR ---
EXAM: XR Chest, 1 View CLINICAL HISTORY: XR Reason: joaquín TECHNIQUE: Frontal view of the chest. COMPARISON: No relevant prior studies available. FINDINGS: Lungs: Mild emphysematous changes in the lungs. Pleural space: There is a pleural fluid collection right lower hemithorax measuring up to 5 cm thick with adjacent right basilar atelectasis or pneumonia. No pneumothorax. Heart: Unremarkable. No cardiomegaly. Mediastinum: Unremarkable. Normal mediastinal contour. Bones/joints: Mild degenerative changes in the thoracic spine. No acute fracture. IMPRESSION: There is a pleural fluid collection right lower hemithorax measuring up to 5 cm thick with adjacent right basilar atelectasis or pneumonia.
[2023-06-02] MEDS: PIPERACILLIN-TAZOBACTAM 3.375 GM in SODIUM CHLORIDE 0.9% 100 ML IVPB STA (03:44)
--- NOTE | 2023-06-02 03:57 | CT ---
EXAM: CT Angiography Chest With Intravenous Contrast CLINICAL HISTORY: CT Reason: dyspnea TECHNIQUE: Axial computed tomographic angiography images of the chest with intravenous contrast. CTDI is 38 mGy and DLP is 878.3 mGy-cm. This CT exam was performed using one or more of the following dose reduction techniques: automated exposure control, adjustment of the mA and/or kV according to patient size, and/or use of iterative reconstruction technique. MIP reconstructed images were created and reviewed. COMPARISON: May 23, 2023 FINDINGS: Pulmonary arteries: The lower lobe branches are blurred by motion. No pulmonary embolism is identified. Aorta: The aortic arch is mildly calcified but nondilated. There is no aneurysm or dissection. Lungs: Right mid lung lower lobe compressive atelectasis versus pneumonia adjacent to the pleural effusion. Mild to moderate emphysematous changes in the lungs. No mass. Pleural space: Significant increase in size of right pleural effusion measuring 4.5 cm laterally and 5 cm subpulmonic, possibly partially loculated. No pneumothorax. Heart: Unremarkable. No cardiomegaly. No significant pericardial effusion. No evidence of RV dysfunction. Bones/joints: Mild to moderate multilevel degenerative changes throughout the spine. No acute fracture or subluxation is seen. Soft tissues: Unremarkable. Lymph nodes: Unremarkable. No enlarged lymph nodes. IMPRESSION: 1. Right mid lung lower lobe compressive atelectasis versus pneumonia adjacent to the pleural effusion. 2. Significant increase in size of right pleural effusion measuring 4.5 cm laterally and 5 cm subpulmonic, possibly partially loculated. 3. Mild to moderate emphysematous changes in the lungs. 4. No evidence of pulmonary embolism or aortic aneurysm.
[2023-06-02] MEDS ORDERED: NALOXONE 0.4 MG/ML 1 ML VIAL IV PRN (04:08)
[2023-06-02] MEDS: AZITHROMYCIN 500 MG in SODIUM CHLORIDE 0.9% 250 ML IVPB STA (04:25)
[2023-06-02] MEDS: METOPROLOL TARTRATE 5 MG/5 ML VIAL IVP SCH (04:55)
[2023-06-02] MEDS: DILTIAZEM DRIP BOLUS FROM BAG 1 MG SOLN IV ONE (05:55)
[2023-06-02] MEDS: DILTIAZEM 125 MG in SODIUM CHLORIDE 0.9% 100 ML IV SCH (05:56)
--- NOTE | 2023-06-02 09:12 | P.HPIM ---
History of Present Illness This is a pleasant 77 years old male with multiple medical problems including COPD and A. fib. Patient was recently discharged from the hospital for acute COPD exacerbation Presents because of dyspnea requiring BiPAP on admission, compared to home dose of 2 L/m for his chronic hypoxic respiratory failure Patient is awake alert, feels generally weak, REMOTELY OPERATED VEHICLE come to K through his BiPAP mask. Patient says that his breathing was improved after discharge but then started getting gradually worse over the last week or so. Associated with right lower quadrant of chest pain about 10/10 on admission, increase by breathing, for a few days, associated with yellow brown coughing and phlegm His legs are significantly swollen Currently he is on BiPAP 12/5 and FiO2 of 60% Patient denies change in urine or bowel habits. He feels little dizzy but no headache weakness or numbness. He denies smoking or illicit drugs, he drinks alcohol occasionally. Labs and vitals reviewed Currently he is mildly tachypneic and tachycardic with heart rate around 140 He has leukocytosis of 19.1. Creatinine elevated 1.47 compared to baseline of 1.1-0.9. Sodium 136, liver enzymes might be elevated. Temperature 97.3 and INR is unremarkable. This is Influenza A and type B, RSV, SARS (coronavirus) are and detected proBNP 477, troponin is negative less than 0.03. Troponin is -0.03 ProBNP is 4677 CTA of the chest is negative for pulmonary embolism with right lower lobe atelectasis versus pneumonia with a right pleural effusion 4.5 cm with emphysematous changes Review of Systems Review of systems CONSTITUTIONAL: No fever, no malaise, no fatigue. HEENT: No recent visual problems or hearing problems. Denied any sore throat. CARDIOVASCULAR: No orthopnea, PND, no palpitations, no syncope. PULMONARY: No chest wall tenderness GI : No diarrhea, no nausea, no vomiting, no abdominal pain. Normoactive bowel sounds. NEUROLOGICAL: No headaches, no weakness, no numbness. HEMATOLOGICAL: Denies any bleeding or petechiae. GENITOURINARY: Denies any burning micturition, frequency, or urgency. MUSCULOSKELETAL/RHEUMATOLOGICAL: Denies any joint pain, swelling, or any muscle pain. ENDOCRINE: Denies any polyuria or polydipsia. Past Medical History Past Medical History: Coronary Artery Disease (CAD), Chest Pain / Angina, COPD, Diabetes Mellitus, GERD/Reflux, GI Bleed, Hyperlipidemia, Hypertension, Myocardial Infarction ([place]), Skin Disorder Additional Past Medical History / Comment(s): Hx of rectal bleeding, rectal fissure; gout, bronchitis, uses O2 @ 2L NC at night & prn. +Covid 08/2020. Hx cysts on groin area. Last Myocardial Infarction Date:: approx 2005 History of Any Multi-Drug Resistant Organisms: None Reported Past Surgical History: Heart Catheterization With Stent Additional Past Surgical History / Comment(s): total 3 cardiac stents, surgery for cyst in rectal area, siddharth cataracts, uro lift, cysts removed from testicles and back, colonoscopy, Past Anesthesia/Blood Transfusion Reactions: No Reported Reaction Date of Last Stent Placement:: 2005 Past Psychological History: No Psychological Hx Reported Smoking Status: Former smoker Past Alcohol Use History: Occasional Past Drug Use History: None Reported - Past Family History Father Family Medical History: Cancer Additional Family Medical History / Comment(s): lung cancer Mother Family Medical History: No Reported History Additional Family Medical History / Comment(s): Mother was healthy and lived to be in her 90s. Medications and Allergies Home Medications Medication Instructions Recorded Confirmed Type allopurinoL [Zyloprim] 100 mg PO DAILY 03/02/16 05/23/23 History Metoprolol Succinate [Toprol Xl] 50 mg PO DAILY 12/29/17 05/23/23 History Tamsulosin HCl [Flomax] 0.4 mg PO HS 12/29/17 05/23/23 History Rosuvastatin [Crestor] 20 mg PO DAILY 02/27/19 05/23/23 History Pantoprazole [Protonix] 40 mg PO DAILY 03/03/19 05/23/23 History Montelukast Sodium [Singulair] 10 mg PO HS 08/16/20 05/23/23 History Aspirin EC [Ecotrin Low Dose] 81 mg PO DAILY 10/10/20 05/23/23 History Ascorbic Acid [Vitamin C] 500 mg PO DAILY 10/19/21 05/23/23 History Cholecalciferol [Vitamin D3 (25 25 mcg PO DAILY 10/19/21 05/23/23 History Mcg = 1000 Iu)] Multivitamins, Thera [Multivitamin 1 tab PO DAILY 10/19/21 05/23/23 History (formulary)] metFORMIN HCL [Glucophage] 500 mg PO BID 10/19/21 05/23/23 History Albuterol Inhaler [Ventolin Hfa 2 puff INHALATION RT-Q6H PRN 03/19/22 05/23/23 History Inhaler] Ipratropium-Albuterol Nebulize 3 ml INHALATION RT-Q4H PRN 03/19/22 05/23/23 History [Duoneb 0.5 mg-3 mg/3 ml Soln] amLODIPine [Norvasc] 5 mg PO DAILY 03/19/22 05/23/23 History Empagliflozin [Jardiance] 25 mg PO DAILY 05/23/23 05/23/23 History Fluticasone/Umeclidin/Vilanter 1 puff INHALATION RT-DAILY 05/23/23 05/23/23 History [Trelegy Ellipta 200-62.5-25] predniSONE [Deltasone] 20 mg PO DAILY 05/23/23 05/23/23 History Acetaminophen Tab [Tylenol] 650 mg PO Q4HR PRN tab 05/25/23 Rx Azithromycin [Zithromax] 500 mg PO DAILY 4 Days #4 tab 05/25/23 Rx Furosemide [Lasix] 20 mg PO BID #60 tab 05/25/23 Rx Ipratropium-Albuterol Nebulize 3 ml INHALATION RT-QID #100 each 05/25/23 Rx [Duoneb 0.5 mg-3 mg/3 ml Soln] Potassium Chloride [K-Tab ER] 20 meq PO DAILY 30 Days #30 tab 05/25/23 Rx predniSONE 10 mg PO DIRECTED #30 tab 05/25/23 Rx Allergies Allergy/AdvReac Type Severity Reaction Status Date / Time No Known Allergies Allergy Verified 05/23/23 12:12 Physical Exam Vitals: Vital Signs Temp Pulse Resp BP Pulse Ox FiO2 06/02/23 08:06 95 60 06/02/23 08:05 60 06/02/23 06:36 137 H 22 98/72 95 06/02/23 04:30 141 H 22 133/81 95 06/02/23 03:04 60 06/02/23 02:05 128 H 22 111/72 96 06/02/23 01:51 134 H 06/02/23 01:45 60 06/02/23 01:40 125 H 06/02/23 01:35 40 06/02/23 01:31 32 H 100 06/02/23 01:26 97.3 F L 128 H 32 H 144/84 93 L Intake and Output 06/01/23 06/02/23 06/02/23 22:59 06:59 14:59 Intake Total 2.75 Balance 2.75 Intake: Intake, IV Titration 2.75 Amount Diltiazem 125 mg In 2.75 Sodium Chloride 0.9% 100 ml @ 5 MG/HR 5 mls/hr IV .Q24H COUNTS INCLUDE 234 BEDS AT THE [facility] Rx#:[id number] Other: Weight 113.398 kg GENERAL: The patient is alert and oriented x3, not in any acute distress. Well developed, well nourished. HEENT: Pupils are round and equally reacting to light. EOMI. No scleral icterus. No conjunctival pallor. Normocephalic, atraumatic. No pharyngeal erythema. No thyromegaly. CARDIOVASCULAR: S1 and S2 present. No murmurs, rubs, or gallops. -PULMONARY: Decreased breath entry of air on both sides, no wheezing , no crackles. ABDOMEN: Soft, nontender, nondistended, normoactive bowel sounds. No palpable organomegaly. MUSCULOSKELETAL: No joint swelling or deformity. EXTREMITIES: No cyanosis, clubbing, or pedal edema. NEUROLOGICAL: Gross neurological examination did not reveal any focal deficits. SKIN: No rashes. no petechiae. Results CBC & Chem 7: 06/02/23 01:39 06/02/23 01:39 Labs: Abnormal Lab Results - Last 24 Hours (Table) 06/02/23 06/02/23 06/02/23 Range/Units 01:39 01:39 01:39 WBC 19.1 H (3.8-10.6) k/uL Neutrophils # 18.0 H (1.3-7.7) k/uL Lymphocytes # 0.4 L (1.0-4.8) k/uL APTT 19.2 L (22.0-30.0) sec Sodium 136 L (137-145) mmol/L Chloride 97 L (98-107) mmol/L Carbon Dioxide 14 L (22-30) mmol/L BUN 31 H (9-20) mg/dL Creatinine 1.47 H (0.66-1.25) mg/dL Glucose 202 H (74-99) mg/dL Plasma Lactic Acid Nakul (0.7-2.0) mmol/L Magnesium 2.4 H (1.6-2.3) mg/dL AST 74 H (17-59) U/L ALT 51 H (4-49) U/L Alkaline Phosphatase 170 H (38-126) U/L Total Protein 6.1 L (6.3-8.2) g/dL Albumin 3.2 L (3.5-5.0) g/dL 06/02/23 Range/Units 01:39 WBC (3.8-10.6) k/uL Neutrophils # (1.3-7.7) k/uL Lymphocytes # (1.0-4.8) k/uL APTT (22.0-30.0) sec Sodium (137-145) mmol/L Chloride (98-107) mmol/L Carbon Dioxide (22-30) mmol/L BUN (9-20) mg/dL Creatinine (0.66-1.25) mg/dL Glucose (74-99) mg/dL Plasma Lactic Acid Nakul 2.4 H* (0.7-2.0) mmol/L Magnesium (1.6-2.3) mg/dL AST (17-59) U/L ALT (4-49) U/L Alkaline Phosphatase (38-126) U/L Total Protein (6.3-8.2) g/dL Albumin (3.5-5.0) g/dL Assessment and Plan Assessment: Right lower lobe pneumonia associated with right pleural effusion 4.5 cm A. fib with RVR Acute kidney injury Acute COPD exacerbation Obesity with BMI of 32.1. History of BPH Hypertension Plan: Continue with this and Zithromax and Zosyn Follow-up Dr. results Continue with Solu-Medrol 40 mg Continue with Cardizem drip Monitor creatinine, patient received 1.5 L of normal saline emergency room Cardiology and pulmonary consult Labs and medication were reviewed.. Continue same treatment. Continue with symptomatic treatment. Resume home medication. Monitor labs and vitals. DVT and GI prophylaxis. 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
[2023-06-02] MEDS: HEPARIN SODIUM,PORCINE 5,000 UNIT/ML 1 ML VIAL SQ SCH (09:43)
[2023-06-02] MEDS: METOPROLOL TARTRATE 25 MG TAB PO SCH (09:44)
[2023-06-02] MEDS: DEXTROSE 5% IN WATER 100 ML with AMIODARONE 150 MG IV ONE (11:22)
--- NOTE | 2023-06-02 11:25 | P.CRDCN ---
History of Present Illness History of present illness: HISTORY OF PRESENT ILLNESS: This is a 77-year-old male with a past medical history significant for paroxysmal atrial fibrillation, GI bleed, COPD, hypertension, hyperlipidemia, and coronary artery disease with previous stenting. Patient used to follow in the office with Dr. Beltran but has not been seen since 2018. 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 We have been asked to see the patient in consultation for A. fib with RVR. Patient examined at the bedside in the emergency room. Patient states he presented to the hospital for chief compl aint of shortness of breath. He states he has been feeling short of breath for the past few days and has noticed increased lower extremity edema. He denies any chest pain or pressure. The patient was found to be hypoxic. He was placed on BiPAP and remains on BiPAP at the time of examination. Patient initially was in sinus mechanism. However he is in A. fib with RVR at the time of examination . He was started on IV Cardizem which is infusing at 7.5 mg an hour. He is hypotensive at the time of examination with a blood pressure in the 80s90s. * EKG reveals sinus tachycardia. Bedside telemetry reveals A. fib with RVR * Chest xray there is pleural fluid collection right lower hemithorax measuring up to 5 cm thick with adjacent right basilar atelectasis or pneumonia * Chest CT: Right mid lower lobe compressive atelectasis versus pneumonia adjacent to pleural effusion. Significant increase in size of right pleural effusion measuring 4.5 cm laterally and 5 cm subpulmonic. Possibly partially loculated. [id number] emphysematous changes in the lung. No evidence of pulmonary embolism or aortic aneurysm * Laboratory data: W BC 19.1. Hemoglobin 16.0. Platelet count 308. Sodium 136. Potassium 4.9. BUN 31. Creatinine 1.47. Lactic acid 2.4. Repeat 1.4. AST 74. ALT 51. Troponin negative 1. ProBNP 477. * Most recent echocardiogram obtained in November 2021 revealing ejection fraction 55%, mild MR, mild TR * Cardiac catheterization history: 2008 with stenting of the LAD and RCA REVIEW OF SYSTEMS: At the time of my exam: CONSTITUTIONAL: Denies fever or chills. HEENT: Denies blurred vision, vision changes, or eye pain. Denies hemoptysis CARDIOVASCULAR: Denies chest pain. + orthopnea. + PND. + palpitations RESPIRATORY: + shortness of breath. GASTROINTESTINAL: Denies abdominal pain. Denies nausea or vomiting. HEMATOLOGIC: Denies bleeding disorders. GENITOURINARY: Denies any blood in urine. SKIN: Denies pruitis. Denies rash. PHYSICAL EXAM: VITAL SIGNS: Reviewed. GENERAL: Well-developed in no acute distress. HEENT: Head is normocephalic. Pupils are equal, round. Sclerae anicteric. Mucous membranes of the mouth are moist. Neck supple. No JVD or thyromegaly LUNGS: Respirations even and unlabored. Lungs with decreased air exchange. HEART: Tachycardic. Irregular rate and rhythm. S1 and S2 heard. ABDOMEN: Soft. Nondistended. Nontender. EXTREMITIES: Normal range of motion. No clubbing or cyanosis. Peripheral pulses intact. 3+ bilateral lower extremity edema, worse at the ankles NEUROLOGIC: Awake and alert. Oriented x 3. ASSESSMENT: Shortness of breath Pneumonia Right pleural effusion Paroxysmal atrial fibrillation with RVR Hypotension Acute COPD exacerbation Acute heart failure exacerbation with preserved EF Acute on chronic hypoxic respiratory failure Coronary artery disease with previous stenting of the RCA and LAD, 2008 Mildly elevated liver enzymes Leukocytosis Acute kidney injury PLAN: Obtain 2-D echo to assess cardiac structure and function Discontinue IV Cardizem secondary to hypotension Begin IV amiodarone bolus and infusion per protocol Add metoprolol 25 mg twice a day Add aspirin 81 mg daily and atorvastatin 20 mg at night Patient not anticoagulated on an outpatient basis secondary to history of GI bleeding We will gently diurese patient with 20 mg IV Lasix every 12 hours Daily weights, accurate I&O, and monitoring of kidney function Further recommendations pending patient's course Nurse practitioner note has been reviewed by physician. Signing provider agrees with the documented findings, assessment, and plan of care. Past Medical History Past Medical History: Coronary Artery Disease (CAD), Chest Pain / Angina, COPD, Diabetes Mellitus, GERD/Reflux, GI Bleed, Hyperlipidemia, Hypertension, Myocardial Infarction ([place]), Skin Disorder Additional Past Medical History / Comment(s): Hx of rectal bleeding, rectal fissure; gout, bronchitis, uses O2 @ 2L [place] at night & prn. +Covid 08/2020. Hx cysts on groin area. Last Myocardial Infarction Date:: approx 2005 History of Any Multi-Drug Resistant Organisms: None Reported Past Surgical History: Heart Catheterization With Stent Additional Past Surgical History / Comment(s): total 3 cardiac stents, surgery for cyst in rectal area, siddharth cataracts, uro lift, cysts removed from testicles and back, colonoscopy, Past Anesthesia/Blood Transfusion Reactions: No Reported Reaction Date of Last Stent Placement:: 2005 Past Psychological History: No Psychological Hx Reported Smoking Status: Former smoker Past Alcohol Use History: Occasional Past Drug Use History: None Reported - Past Family History Father Family Medical History: Cancer Additional Family Medical History / Comment(s): lung cancer Mother Family Medical History: No Reported History Additional Family Medical History / Comment(s): Mother was healthy and lived to be in her 90s. Medications and Allergies Home Medications Medication Instructions Recorded Confirmed Type allopurinoL [Zyloprim] 100 mg PO DAILY 03/02/16 05/23/23 History Metoprolol Succinate [Toprol Xl] 50 mg PO DAILY 12/29/17 05/23/23 History Tamsulosin HCl [Flomax] 0.4 mg PO HS 12/29/17 05/23/23 History Rosuvastatin [Crestor] 20 mg PO DAILY 02/27/19 05/23/23 History Pantoprazole [Protonix] 40 mg PO DAILY 03/03/19 05/23/23 History Montelukast Sodium [Singulair] 10 mg PO HS 08/16/20 05/23/23 History Aspirin EC [Ecotrin Low Dose] 81 mg PO DAILY 10/10/20 05/23/23 History Ascorbic Acid [Vitamin C] 500 mg PO DAILY 10/19/21 05/23/23 History Cholecalciferol [Vitamin D3 (25 25 mcg PO DAILY 10/19/21 05/23/23 History Mcg = 1000 Iu)] Multivitamins, Thera [Multivitamin 1 tab PO DAILY 10/19/21 05/23/23 History (formulary)] metFORMIN HCL [Glucophage] 500 mg PO BID 10/19/21 05/23/23 History Albuterol Inhaler [Ventolin Hfa 2 puff INHALATION RT-Q6H PRN 03/19/22 05/23/23 History Inhaler] Ipratropium-Albuterol Nebulize 3 ml INHALATION RT-Q4H PRN 03/19/22 05/23/23 History [Duoneb 0.5 mg-3 mg/3 ml Soln] amLODIPine [Norvasc] 5 mg PO DAILY 03/19/22 05/23/23 History Empagliflozin [Jardiance] 25 mg PO DAILY 05/23/23 05/23/23 History Fluticasone/Umeclidin/Vilanter 1 puff INHALATION RT-DAILY 05/23/23 05/23/23 History [Trelegy Ellipta 200-62.5-25] predniSONE [Deltasone] 20 mg PO DAILY 05/23/23 05/23/23 History Acetaminophen Tab [Tylenol] 650 mg PO Q4HR PRN tab 05/25/23 Rx Azithromycin [Zithromax] 500 mg PO DAILY 4 Days #4 tab 05/25/23 Rx Furosemide [Lasix] 20 mg PO BID #60 tab 05/25/23 Rx Ipratropium-Albuterol Nebulize 3 ml INHALATION RT-QID #100 each 05/25/23 Rx [Duoneb 0.5 mg-3 mg/3 ml Soln] Potassium Chloride [K-Tab ER] 20 meq PO DAILY 30 Days #30 tab 05/25/23 Rx predniSONE 10 mg PO DIRECTED #30 tab 05/25/23 Rx Allergies Allergy/AdvReac Type Severity Reaction Status Date / Time No Known Allergies Allergy Verified 05/23/23 12:12 Physical Exam Vitals: Vital Signs Temp Pulse Resp BP Pulse Ox FiO2 06/02/23 09:00 135 H 18 95/57 90 L 06/02/23 08:06 95 60 06/02/23 08:05 60 06/02/23 06:36 137 H 22 98/72 95 06/02/23 04:30 141 H 22 133/81 95 06/02/23 03:04 60 06/02/23 02:05 128 H 22 111/72 96 06/02/23 01:51 134 H 06/02/23 01:45 60 06/02/23 01:40 125 H 06/02/23 01:35 40 06/02/23 01:31 32 H 100 06/02/23 01:26 97.3 F L 128 H 32 H 144/84 93 L Intake and Output 06/01/23 06/02/23 06/02/23 22:59 06:59 14:59 Intake Total 2.75 Balance 2.75 Intake: Intake, IV Titration 2.75 Amount Diltiazem 125 mg In 2.75 Sodium Chloride 0.9% 100 ml @ 5 MG/HR 5 mls/hr IV .Q24H [facility] Rx#:[id number] Other: Weight 113.398 kg Results 06/02/23 01:39 06/02/23 01:39 Cardiac Enzymes 06/02/23 06/02/23 Range/Units 01:39 01:39 AST 74 H (17-59) U/L Troponin I 0.034 (0.000-0.034) ng/mL Coagulation 06/02/23 Range/Units 01:39 PT 10.7 (10.0-12.5) sec APTT 19.2 L (22.0-30.0) sec CBC 06/02/23 Range/Units 01:39 WBC 19.1 H (3.8-10.6) k/uL RBC 5.12 (4.30-5.90) m/uL Hgb 16.0 (13.0-17.5) gm/dL Hct 48.3 (39.0-53.0) % Plt Count 308 D (150-450) k/uL Comprehensive Metabolic Panel 06/02/23 Range/Units 01:39 Sodium 136 L (137-145) mmol/L Potassium 4.9 (3.5-5.1) mmol/L Chloride 97 L (98-107) mmol/L Carbon Dioxide 14 L (22-30) mmol/L BUN 31 H (9-20) mg/dL Creatinine 1.47 H (0.66-1.25) mg/dL Glucose 202 H (74-99) mg/dL Calcium 9.0 (8.4-10.2) mg/dL AST 74 H (17-59) U/L ALT 51 H (4-49) U/L Alkaline Phosphatase 170 H (38-126) U/L Total Protein 6.1 L (6.3-8.2) g/dL Albumin 3.2 L (3.5-5.0) g/dL Current Medications Generic Name Dose Route Start Last Admin Trade Name Freq PRN Reason Stop Dose Admin Albuterol/Ipratropium 3 ml 06/02/23 03:19 Ipratropium-Albuterol 3 Ml Neb INHALATION RT-Q4H PRN shortness of breath Famotidine 20 mg 06/02/23 21:00 Famotidine 20 Mg/2 Ml Vial IV Q12HR [facility] Furosemide 20 mg 06/02/23 11:15 Furosemide 10 Mg/Ml 2 Ml Vial IV Q12HR [facility] Heparin Sodium (Porcine) 5,000 unit 06/02/23 09:00 06/02/23 09:43 Heparin Sodium,Porcine 5,000 Unit/Ml 1 Ml Vial SQ 5,000 unit Q12HR [facility] Administration Piperacillin Sod/Tazobactam 100 mls @ 25 mls/hr 06/02/23 12:00 Sod 3.375 gm/ Sodium Chloride IVPB Q8H [facility] Protocol Azithromycin 500 mg/ Sodium 250 mls @ 250 mls/hr 06/03/23 06:00 Chloride IVPB 06/04/23 06:59 DAILY@0600 [facility] Protocol Sodium Chloride 500 mls @ 999 mls/hr 06/02/23 11:07 Saline 0.9% IV 06/02/23 11:37 .Q31M ONE Amiodarone HCl 150 mg/ 103 mls @ 618 mls/hr 06/02/23 11:15 Dextrose/Water IV 06/02/23 11:24 .Q10M ONE Amiodarone HCl 360 mg/ 200 mls @ 33.333 mls/hr 06/02/23 11:30 Dextrose/Water IV 06/02/23 17:29 .Q6H ONE Protocol 1 MG/MIN Amiodarone HCl 450 mg/ 250 mls @ 16.667 mls/hr 06/02/23 17:30 Dextrose/Water IV 06/03/23 11:29 .Q15H [facility] Protocol 0.5 MG/MIN Methylprednisolone Sodium Succinate 40 mg 06/02/23 16:00 Methylprednisolone Sod Succi 40 Mg/Ml 1 Ml Vial IV Q8HR [facility] Metoprolol Tartrate 25 mg 06/02/23 09:00 06/02/23 09:44 Metoprolol Tartrate 25 Mg Tab PO Not Given BID [facility] Miscellaneous Information 1 each 06/02/23 03:19 Pneumonia Protocol Utilized 1 Each Misc PO ONCE PRN Per Protocol Naloxone HCl 0.2 mg 06/02/23 04:08 Naloxone 0.4 Mg/Ml 1 Ml Vial IV Q2M PRN Opioid Reversal Intake and Output 06/01/23 06/02/23 06/02/23 22:59 06:59 14:59 Intake Total 2.75 Balance 2.75 Intake: Intake, IV Titration 2.75 Amount Diltiazem 125 mg In 2.75 Sodium Chloride 0.9% 100 ml @ 5 MG/HR 5 mls/hr IV .Q24H [facility] Rx#:[id number] Other: Weight 113.398 kg 06/02/23 01:39 06/02/23 01:39
[2023-06-02] MEDS: AMIODARONE 360 MG in DEXTROSE 5% IN WATER 200 ML IV ONE (12:15)
[2023-06-02] MEDS: methylPREDNISolone SOD SUCCI 40 MG/ML 1 ML VIAL IV SCH ×2 (12:18→18:14)
--- NOTE | 2023-06-02 13:11 | P.CNPUL ---
History of Present Illness Consult date: 06/02/23 Requesting physician: Chas Pitts Reason for consult: dyspnea, hypoxemia Chief complaint: Shortness of breath History of present illness: This is a 77-year-old male patient with a known history of coronary artery disease with stent placements 3, COPD, diabetes mellitus, chronic hypoxemic res piratory failure on oxygen 2 L at home mostly at night, hyperlipidemia, hypertension, former smoker. He was recently discharged home from here on 05/25/2023 following a COPD exacerbation. He came back to the emergency room early this morning with symptoms of shortness of breath cough and congestion and some right lower sided chest discomfort. X-ray does show a pleural fluid collection in the right lower hemithorax measuring up to 5 cm in thickness adjacent right basilar atelectasis. CT scan of the chest reveals a right mid lung lower lobe compressive atelectasis versus pneumonia adjacent to the right pleural effusion. Partially loculated. There is [id number] asthmatic changes. No evidence of pulmonary embolism. A count 19.1. Hemoglobin 16.0. Platelets 308. Sodium 136. Potassium 4.9. Bicarb 14. BUN 31. Creatinine 1.47. Glucose 202. AST 74. ALT 51. Alk phos 170. Viral screen negative. He is found to be in atrial fibrillation with a rapid ventricular response. Review of Systems REVIEW OF SYSTEMS: CONSTITUTIONAL: Denies any recent significant weight loss or weight gain. EYES: Denies change in vision. EARS, NOSE, MOUTH, THROAT: Denies headaches, denies sore throat. CARDIOVASCULAR: Positive for right-sided chest pain, no palpitations or syncopal episodes. RESPIRATORY: Positive for shortness of breath, cough, congestion no hemoptysis. GASTROINTESTINAL: Denies change in appetite, denies abdominal pain GENITOURINARY: Denies hematuria, denies infections. MUSKULOSKELETAL: Denies pain, denies swelling. INTEGUMENTARY: Denies rash, denies eczema. NEUROLOGICAL: Denies recent memory loss, no recent seizure activity. PSYCHIATRIC: Denies anxiety, denies depression. HEMATOLOGIC/LYMPHATIC: Denies anemia, denies enlarged lymph nodes. Past Medical History Past Medical History: Coronary Artery Disease (CAD), Chest Pain / Angina, COPD, Diabetes Mellitus, GERD/Reflux, GI Bleed, Hyperlipidemia, Hypertension, Myocardial Infarction (CO), Skin Disorder Additional Past Medical History / Comment(s): Hx of rectal bleeding, rectal fissure; gout, bronchitis, uses O2 @ 2L NC at night & prn. +Covid 08/2020. Hx cysts on groin area. Last Myocardial Infarction Date:: approx 2005 History of Any Multi-Drug Resistant Organisms: None Reported Past Surgical History: Heart Catheterization With Stent Additional Past Surgical History / Comment(s): total 3 cardiac stents, surgery for cyst in rectal area, siddharth cataracts, uro lift, cysts removed from testicles and back, colonoscopy, Past Anesthesia/Blood Transfusion Reactions: No Reported Reaction Date of Last Stent Placement:: 2005 Past Psychological History: No Psychological Hx Reported Smoking Status: Former smoker Past Alcohol Use History: Occasional Past Drug Use History: None Reported - Past Family History Father Family Medical History: Cancer Additional Family Medical History / Comment(s): lung cancer Mother Family Medical History: No Reported History Additional Family Medical History / Comment(s): Mother was healthy and lived to be in her 90s. Medications and Allergies Home Medications Medication Instructions Recorded Confirmed Type allopurinoL [Zyloprim] 100 mg PO DAILY 03/02/16 06/02/23 History Metoprolol Succinate [Toprol Xl] 50 mg PO DAILY 12/29/17 06/02/23 History Tamsulosin HCl [Flomax] 0.4 mg PO HS 12/29/17 06/02/23 History Rosuvastatin [Crestor] 20 mg PO DAILY 02/27/19 06/02/23 History Pantoprazole [Protonix] 40 mg PO DAILY 03/03/19 06/02/23 History Montelukast Sodium [Singulair] 10 mg PO HS 08/16/20 06/02/23 History Aspirin EC [Ecotrin Low Dose] 81 mg PO DAILY 10/10/20 06/02/23 History Ascorbic Acid [Vitamin C] 500 mg PO DAILY 10/19/21 06/02/23 History Cholecalciferol [Vitamin D3 (25 25 mcg PO DAILY 10/19/21 06/02/23 History Mcg = 1000 Iu)] Multivitamins, Thera [Multivitamin 1 tab PO DAILY 10/19/21 06/02/23 History (formulary)] metFORMIN HCL [Glucophage] 500 mg PO BID 10/19/21 06/02/23 History Albuterol Inhaler [Ventolin Hfa 2 puff INHALATION RT-Q6H PRN 03/19/22 06/02/23 History Inhaler] Ipratropium-Albuterol Nebulize 3 ml INHALATION RT-Q4H PRN 03/19/22 06/02/23 History [Duoneb 0.5 mg-3 mg/3 ml Soln] amLODIPine [Norvasc] 5 mg PO DAILY 03/19/22 06/02/23 History Empagliflozin [Jardiance] 25 mg PO DAILY 05/23/23 06/02/23 History Fluticasone/Umeclidin/Vilanter 1 puff INHALATION RT-DAILY 05/23/23 06/02/23 History [Trelegy Ellipta 200-62.5-25] predniSONE [Deltasone] 20 mg PO DIRECTED 05/23/23 06/02/23 History Acetaminophen Tab [Tylenol] 650 mg PO Q4HR PRN tab 05/25/23 06/02/23 Rx Furosemide [Lasix] 20 mg PO BID #60 tab 05/25/23 06/02/23 Rx Ipratropium-Albuterol Nebulize 3 ml INHALATION RT-QID #100 each 05/25/23 06/02/23 Rx [Duoneb 0.5 mg-3 mg/3 ml Soln] Potassium Chloride [K-Tab ER] 20 meq PO DAILY 30 Days #30 tab 05/25/23 06/02/23 Rx lisinopriL [Zestril] 10 mg PO DAILY 06/02/23 06/02/23 History predniSONE See Taper PO DIRECTED 06/02/23 06/02/23 History Allergies Allergy/AdvReac Type Severity Reaction Status Date / Time No Known Allergies Allergy Verified 06/02/23 11:53 Physical Exam Vitals: Vital Signs Temp Pulse Resp BP Pulse Ox FiO2 06/02/23 11:18 60 06/02/23 09:00 135 H 18 95/57 90 L 06/02/23 08:06 95 60 06/02/23 08:05 60 06/02/23 06:36 137 H 22 98/72 95 06/02/23 04:30 141 H 22 133/81 95 06/02/23 03:04 60 06/02/23 02:05 128 H 22 111/72 96 06/02/23 01:51 134 H 01/13/24 01:45 60 06/02/23 01:40 125 H 06/02/23 01:35 40 06/02/23 01:31 32 H 100 06/02/23 01:26 97.3 F L 128 H 32 H 144/84 93 L Intake and Output 06/01/23 06/02/23 06/02/23 22:59 06:59 14:59 Intake Total 2.75 Balance 2.75 Intake: Intake, IV Titration 2.75 Amount Diltiazem 125 mg In 2.75 Sodium Chloride 0.9% 100 ml @ 5 MG/HR 5 mls/hr IV .Q24H [facility] Rx#:[id number] Other: Weight 113.398 kg GENERAL EXAM: Alert, obese 77-year-old male on BiPAP 12/5 and 60% FiO2. In no apparent distress. HEAD: Normocephalic. EYES: Normal reaction of pupils, equal size. NOSE: Clear with pink turbinates. THROAT: No erythema or exudates. NECK: No masses, no JVD. CHEST: No chest wall deformity. LUNGS: Equal air entry with crackles, diminished in the right lower lobe. CVS: S1 and S2 normal with no audible murmur, irregular rhythm. ABDOMEN: No hepatosplenomegaly, normal bowel sounds, no guarding or rigidity. SPINE: No scoliosis or deformity SKIN: No rashes CENTRAL NERVOUS SYSTEM: No focal deficits, tone is normal in all 4 extremities. EXTREMITIES: There is no peripheral edema. No clubbing, no cyanosis. Peripheral pulses are intact. Results - Laboratory Findings CBC and BMP: 06/02/23 01:39 06/02/23 01:39 PT/INR, D-dimer PT 10.7 sec (10.0-12.5) 06/02/23 01:39 INR 1.0 (<1.2) 06/02/23 01:39 Abnormal lab findings: Abnormal Labs 06/02/23 06/02/23 06/02/23 01:39 01:39 01:39 WBC 19.1 H Neutrophils # 18.0 H Lymphocytes # 0.4 L APTT 19.2 L Sodium 136 L Chloride 97 L Carbon Dioxide 14 L BUN 31 H Creatinine 1.47 H Glucose 202 H Plasma Lactic Acid Nakul Magnesium 2.4 H AST 74 H ALT 51 H Alkaline Phosphatase 170 H Total Protein 6.1 L Albumin 3.2 L 06/02/23 01:39 WBC Neutrophils # Lymphocytes # APTT Sodium Chloride Carbon Dioxide BUN Creatinine Glucose Plasma Lactic Acid Nakul 2.4 H* Magnesium AST ALT Alkaline Phosphatase Total Protein Albumin - Diagnostic Findings Chest x-ray: image reviewed CT scan - chest: image reviewed Assessment and Plan Assessment: Acute on chronic hypoxemic respiratory failure secondary to a right lower lobe pleural effusion, somewhat loculated Atrial fibrillation with rapid ventricular response Acute kidney injury Leukocytosis Mild transaminitis Recent discharge on 05/25/2023 for pneumonia Morbid obesity Oxygen dependent chronic obstructive pulmonary disease Coronary artery disease with previous stent placement 3 Hypertension Hyperlipidemia History of gout Former smoker Plan: The patient was seen and evaluated Chest x-ray, computed tomography scan, labs and medications reviewed Continue on a Cardizem drip Echocardiogram pending Cardiology consult Continue IV diuretics Continue bronchodilators, steroids Continue antibiotics for now Check a pro-calcitonin Continue BiPAP support as needed Could transition to a nasal cannula We will continue to follow and make further recommendations based on his clinical status I have personally seen and examined the patient, performed the documentation and the assessment and plan as written. Number of minutes spent on the visit: 20.
[2023-06-02] MEDS: PIPERACILLIN-TAZOBACTAM 3.375 GM in SODIUM CHLORIDE 0.9% 100 ML IVPB SCH (13:59)
[2023-06-02] MEDS: AMIODARONE 450 MG in DEXTROSE 5% IN WATER 250 ML IV SCH (18:14)
[2023-06-02] MEDS: FUROSEMIDE 10 MG/ML 2 ML VIAL IV SCH (19:59)
[2023-06-02] MEDS: BUDESONIDE 1 MG/2 ML NEBU INHALATION SCH (20:30)
[2023-06-02 20:53] LABS: Glucose,Whole Blood 305 mg/dL (70-110)
[2023-06-02] MEDS: FAMOTIDINE 20 MG/2 ML VIAL IV SCH (20:57)
[2023-06-02] MEDS: ATORVASTATIN 20 MG TAB PO SCH (20:57)
[2023-06-02] MEDS ORDERED: DEXTROSE 50% SYRINGE 50 ML IVP PRN ×2 (23:12)
[2023-06-02 23:21] LABS: Glucose,Whole Blood 287 mg/dL (70-110)
[2023-06-02] MEDS: INSULIN ASPART (NovoLOG) 100 UNIT/ML VIAL SQ ONE (23:29)
[2023-06-03 06:17] LABS: Glucose,Whole Blood 227 mg/dL (70-110)
[2023-06-03] MEDS: INSULIN ASPART (NovoLOG) 100 UNIT/ML VIAL SQ SCH (06:20)
--- NOTE | 2023-06-03 07:37 | XR ---
EXAMINATION TYPE: XR chest 1V portable DATE OF EXAM: 06/03/2023 COMPARISON: 06/02/2023 INDICATION: Pneumonia, cough TECHNIQUE: Single frontal view of the chest is obtained. FINDINGS: The heart size is normal. The pulmonary vasculature is normal. Moderate right pleural effusion. IMPRESSION: 1. Moderate right pleural effusion.
[2023-06-03] MEDS: ASPIRIN 81 MG PO SCH (08:26)
[2023-06-03] MEDS: AZITHROMYCIN 500 MG in SODIUM CHLORIDE 0.9% 250 ML IVPB SCH (08:27)
--- NOTE | 2023-06-03 09:44 | P.PN ---
Subjective Progress Note Date: 06/03/23 Principal diagnosis: Shortness of breath The patient is a 77-year-old [id number] gentleman who was admitted to the hospital with shortness of breath and he was found to be in atrial fibrillation with RVR. He was not on anticoagulation because of history of bleeding. He was in heart failure and the chest x-ray showed right pleural effusion was moderate. He was seen and evaluated this morning. He continues to be hypoxic VT continues to have severe bilateral lower extremity edema. The pressure has marginal. He isn't on amiodarone as this point IV which I'm going to switch him to amiodarone orally and continue the beta mac which was started yesterday. The echo still pending. The examination is remarkable for dementia breathing sounds bilaterally and severe bilateral lower extremity edema Assessment Atrial fibrillation with RVR Heart failure of unknown etiology at this point Evidence of right and left heart failure Right pleural effusion Multiple comorbid conditions you Plan Continue IV diuretics Follow-up with a blood work from this morning Possible pleurocentesis DC a new IV and switch the patient on your orally Continue beta mac Consider increasing the dose of beta mac if the heart rate remains elevated Objective - Vital Signs Vital signs: Vital Signs Temp 97.8 F 06/03/23 08:00 Pulse 131 H 06/03/23 08:00 Resp 20 06/03/23 08:00 BP 115/50 06/03/23 08:00 Pulse Ox 98 06/03/23 04:00 FiO2 60 06/03/23 08:32 Intake & Output 06/02/23 06/03/23 06/03/23 18:59 06:59 18:59 Intake Total 237.505 Output Total 400 Balance -400 237.505 Weight 105.5 kg Intake: Intake, IV Titration 237.505 Amount Amiodarone 450 mg In 237.505 Dextrose 5% in Water 250 ml @ 0.5 MG/MIN 16.667 mls/hr IV .Q15H [facility] Rx#: [id number] Output: Urine 400 Other: Voiding Method External Catheter # Voids 400 - Labs CBC & Chem 7: 06/02/23 01:39 06/02/23 01:39 Labs: Abnormal Lab Results - Last 24 Hours (Table) 06/02/23 06/02/23 06/02/23 Range/Units 01:39 20:51 23:20 POC Glucose (mg/dL) 305 H 287 H (70-110) mg/dL Procalcitonin 1.48 H (0.02-0.09) ng/mL 06/03/23 Range/Units 06:15 POC Glucose (mg/dL) 227 H (70-110) mg/dL Procalcitonin (0.02-0.09) ng/mL
[2023-06-03 11:38] LABS: Glucose,Whole Blood 342 mg/dL (70-110)
--- NOTE | 2023-06-03 11:48 | US ---
EXAMINATION TYPE: US chest DATE OF EXAM: 06/03/2023 COMPARISON: NONE CLINICAL INDICATION: Male, 77 years old with history of Right pleural effusion; RT effusion TECHNIQUE: Targeted ultrasound of the posterior lower right hemithorax EXAM MEASUREMENTS: Right Pleural Effusion pocket size: 4.3 cm Right skin surface to fluid distance: 3.8 cm Right side marked for possible thoracentesis outside the dept. Pulmonologists are able to review the images in the patient?s EMR. solid debris and possible loculations noted within fluid space comparable to CT 06/02 IMPRESSIONS: 1. Complex right pleural effusion
[2023-06-03] MEDS: AMIODARONE 200 MG TAB PO SCH (12:17)
[2023-06-03 12:46] LABS: Basophils # (A) 0.1 k/uL (0-0.2); Basophils % (A) 0 %; Eosinophils % (A) 0 %; HCT 43.9 % (39.0-53.0); HGB 14.3 gm/dL (13.0-17.5); Lymphocytes # (A) 0.5 k/uL (1.0-4.8); Lymphocytes % (A) 3 %; MCH 31.2 pg (25.0-35.0); MCHC 32.6 g/dL (31.0-37.0); MCV 95.7 fL (80.0-100.0); Mean Platelet Volume 8.3; Monocytes # (A) 0.4 k/uL (0-1.0); Monocytes % (A) 2 %; Neutrophils # (A) 16.5 k/uL (1.3-7.7); Neutrophils % (A) 94 %; Platelet Count 295 k/uL (150-450); RBC 4.58 m/uL (4.30-5.90); RDW 13.5 % (11.5-15.5); WBC 17.5 k/uL (3.8-10.6)
[2023-06-03 12:56] LABS: African American GFR (CKD) 73 (>60 ml/min/1.73 sqM); Anion Gap 17 mmol/L; Blood Urea Nitrogen 46 mg/dL (9-20); Calcium 8.3 mg/dL (8.4-10.2); Carbon Dioxide 19 mmol/L (22-30); Chloride 100 mmol/L (98-107); Glucose 317 mg/dL (74-99); Non-African American GFR(CKD) 63 (>60 ml/min/1.73 sqM); Sodium 136 mmol/L (137-145)
--- NOTE | 2023-06-03 13:38 | XR ---
EXAMINATION TYPE: XR KUB portable DATE OF EXAM: 06/03/2023 COMPARISON: CT 06/02/2023 HISTORY: Right abdominal pain TECHNIQUE: AP supine abdomen. Exam is limited due to some motion artifact. FINDINGS: Surgical clips within the lower pelvis. Bowel gas. Some proximal dilatation. No mass effect is evident. There is opacity over the right lung base uncertain etiology. Loculated effusion is evident on recent CT. IMPRESSION: 1. Nonspecific abdomen. 2. Right lung base opacity may be loculated effusion
--- NOTE | 2023-06-03 15:03 | P.PN ---
Subjective Progress Note Date: 06/03/23 Principal diagnosis: Shortness of breath. This is a 77-year-old male patient with a known history of coronary artery disease with stent placements 3, COPD, diabetes mellitus, chronic hypoxemic respiratory failure on oxygen 2 L at home mostly at night, hyperlipidemia, hypertension, former smoker. He was recently discharged home from here on 05/25/2023 following a COPD exacerbation. He came back to the emergency room early this morning with symptoms of shortness of breath cough and congestion and some right lower sided chest discomfort. X-ray does show a pleural fluid co llection in the right lower hemithorax measuring up to 5 cm in thickness adjacent right basilar atelectasis. CT scan of the chest reveals a right mid lung lower lobe compressive atelectasis versus pneumonia adjacent to the right pleural effusion. Partially loculated. There is eiai-xq-aikbipmo asthmatic changes. No evidence of pulmonary embolism. A count 19.1. Hemoglobin 16.0. Platelets 308. Sodium 136. Potassium 4.9. Bicarb 14. BUN 31. Creatinine 1.47. Glucose 202. AST 74. ALT 51. Alk phos 170. Viral screen negative. He is found to be in atrial fibrillation with a rapid ventricular response. Progress note dated 06/03/2023. 77-year-old male seen today in room 374. He was seen yesterday in the emergency department. The patient is currently on BiPAP, with settings of 12/5, and 50%. The patient's currently on amiodarone at 0.5 mg/m, and saline at 10 mL an hour. The patient had a pro-calcitonin level of 1.48. We will order an ultrasound the right chest, to evaluate right-sided pleural effusion, which appears to be loculated. The patient is also on Zosyn, and azithromycin. When asked how he is doing, the patient states that he is feeling a bit better. White count 17.5, hemoglobin 14.3, hematocrit 43.9, and platelet count 295,000. Sodium 136, potassium 5, chlorides 100, CO2 19, anion gap 17, BUN 46, creatinine 1.12. Calcium is 8.3. Cultures are currently pending or negative. Chest x-ray today shows a moderate right-sided pleural effusion. Ultrasound reveals a 4.3 cm pocket on the right side. There appears to be solid debris and possible loculations noted. Objective - Vital Signs Vital signs: Vital Signs Temp 97.4 F L 06/03/23 11:34 Pulse 137 H 06/03/23 11:34 Resp 20 06/03/23 11:34 BP 99/58 06/03/23 11:34 Pulse Ox 98 06/03/23 11:34 FiO2 60 06/03/23 11:40 Intake & Output 06/02/23 06/03/23 06/03/23 18:59 06:59 18:59 Intake Total 357.505 Output Total 400 Balance -400 357.505 Weight 105.5 kg Intake: Intake, IV Titration 237.505 Amount Amiodarone 450 mg In 237.505 Dextrose 5% in Water 250 ml @ 0.5 MG/MIN 16.667 mls/hr IV .Q15H [facility] Rx#: [id number] Oral 120 Output: Urine 400 Other: Voiding Method External Catheter External Catheter # Voids 400 - Exam No acute distress, oriented 3. Currently on BiPAP. HEENT examination is grossly unremarkable. Neck supple. Full range of motion. No adenopathy thyromegaly or neck vein distention. Cardiovascular examination reveals an irregular rhythm and rate. S1-S2 normal. No S3 or S4. No discernible murmur noted. Heart rate is elevated at 130 bpm. Lungs reveal mild scattered rhonchi. No wheezes. No crackles. Breath sounds equal bilaterally. Saturations are 98% on BiPAP. Abdomen soft bowel sounds are heard. No masses or tenderness. Extremities are intact. No cyanosis or clubbing. 1+ edema is present. Skin is without rash or lesion. Neurologic examination is brief but nonfocal. - Labs CBC & Chem 7: 06/03/23 11:08 06/03/23 11:08 Labs: Abnormal Lab Results - Last 24 Hours (Table) 06/02/23 06/02/23 06/02/23 Range/Units 01:39 20:51 23:20 WBC (3.8-10.6) k/uL Neutrophils # (1.3-7.7) k/uL Lymphocytes # (1.0-4.8) k/uL Sodium (137-145) mmol/L Carbon Dioxide (22-30) mmol/L BUN (9-20) mg/dL Glucose (74-99) mg/dL POC Glucose (mg/dL) 305 H 287 H (70-110) mg/dL Calcium (8.4-10.2) mg/dL Procalcitonin 1.48 H (0.02-0.09) ng/mL 06/03/23 06/03/23 06/03/23 Range/Units 06:15 11:08 11:08 WBC 17.5 H (3.8-10.6) k/uL Neutrophils # 16.5 H (1.3-7.7) k/uL Lymphocytes # 0.5 L (1.0-4.8) k/uL Sodium 136 L (137-145) mmol/L Carbon Dioxide 19 L (22-30) mmol/L BUN 46 H (9-20) mg/dL Glucose 317 H (74-99) mg/dL POC Glucose (mg/dL) 227 H (70-110) mg/dL Calcium 8.3 L (8.4-10.2) mg/dL Procalcitonin (0.02-0.09) ng/mL 06/03/23 Range/Units 11:36 WBC (3.8-10.6) k/uL Neutrophils # (1.3-7.7) k/uL Lymphocytes # (1.0-4.8) k/uL Sodium (137-145) mmol/L Carbon Dioxide (22-30) mmol/L BUN (9-20) mg/dL Glucose (74-99) mg/dL POC Glucose (mg/dL) 342 H (70-110) mg/dL Calcium (8.4-10.2) mg/dL Procalcitonin (0.02-0.09) ng/mL Microbiology - Last 24 Hours (Table) 06/02/23 01:50 Blood Culture - Preliminary Blood 06/02/23 01:35 Blood Culture - Preliminary Blood 06/02/23 13:53 Gram Stain - Preliminary Sputum Assessment and Plan Assessment: Acute on chronic hypoxemic respiratory failure secondary to a right lower lobe loculated pleural effusion. Atrial fibrillation with rapid ventricular response. Acute kidney injury. Leukocytosis. Mild transaminitis. Recent discharge on 05/25/2023 for pneumonia. Morbid obesity. Oxygen dependent chronic obstructive pulmonary disease. Coronary artery disease with previous stent placement 3. Hypertension. Hyperlipidemia. History of gout. Former smoker. Plan: Plan dated 06/03/2023. The patient continues on amiodarone, or the atrial fibrillation, and RVR. The patient's pro-calcitonin level was elevated at 1.48. We will continue with antibiotics for the present time. The ultrasound of the right chest shows a complex loculated right-sided effusion, and therefore, thoracentesis was not attempted. Interventional radiology may have to do an ultrasound guided thoracentesis. The patient continues on saline at 10 mL an hour. Labs, x-rays, medications are reviewed. Prognosis is guarded. We will continue to follow the patient, make recommendations along Time with Patient: Less than 30
--- NOTE | 2023-06-03 16:06 | CA ---
Transthoracic Echo Report Name: Salvatore Aguilar Age: 77 Gender: M : 1945 Exam Date: 06/02/2023 11:55 Exam Location: [facility] Ht (in): 74 Wt (lb): 250 Ordering Physician: Irina Easton Attending/Referring Phys: [id number], Rustam Associate Material Handler Cathy Morin RDCS Procedure CPT: Indications: LV function Cardiac Hx: Technical Quality: Technically difficult study Contrast 1: Definity Total Dose (mL): 2 Contrast 2: Total Dose (mL): MEASUREMENTS (Male / Female) Normal Values 2D ECHO LV Diastolic Diameter PLAX 2.9 cm 4.2 - 5.9 / 3.9 - 5.3 cm LV Systolic Diameter PLAX 2.6 cm IVS Diastolic Thickness 1.4 cm 0.6 - 1.0 / 0.6 - 0.9 cm LVPW Diastolic Thickness 1.1 cm 0.6 - 1.0 / 0.6 - 0.9 cm LV Relative Wall Thickness 0.9 M-MODE Aortic Root Diameter MM 2.8 cm DOPPLER AV Peak Velocity 125.1 cm/s AV Peak Gradient 6.3 mmHg AV Mean Velocity 93.5 cm/s AV Mean Gradient 3.8 mmHg AV Velocity Time Integral 22.1 cm LVOT Peak Velocity 81.3 cm/s LVOT Peak Gradient 2.6 mmHg LVOT Velocity Time Integral 15.5 cm TR Peak Velocity 252.0 cm/s TR Peak Gradient 25.4 mmHg Right Ventricular Systolic Press 29.7 mmHg FINDINGS Left Ventricle Moderately increased left ventricular wall thickness. Left ventricle not well visualized. Reduced global left ventricular systolic function. Left ventricular ejection fraction is estimated at 40-45 %. Right Ventricle Right ventricle not well visualized. Right ventricular systolic pressure within normal limits. Right Atrium Right atrium not well visualized. Left Atrium Normal left atrial size. Mitral Valve Mitral valve not well visualized. Mild mitral annular calcification. Mild mitral regurgitation. Aortic Valve No aortic valve stenosis or regurgitation. Tricuspid Valve Tricuspid valve not well visualized. Mild tricuspid regurgitation. Pulmonic Valve Pulmonic valve not well visualized. Pericardium No pericardial effusion. Aorta Normal size aortic root and proximal ascending aorta. CONCLUSIONS Technically difficult study for interpretation LV ejection fraction is 40-45% Previewed by: Dr. Cj Garvin MD (Electronically Signed) Final Date: 03 June 2023 16:05
[2023-06-03 17:05] LABS: Glucose,Whole Blood 345 mg/dL (70-110)
[2023-06-03 20:03] LABS: Glucose,Whole Blood 268 mg/dL (70-110)
[2023-06-03] MEDS: MELATONIN 5 MG TABLET PO PRN (21:22)
--- NOTE | 2023-06-03 21:39 | P.PN ---
Subjective This is a pleasant 77 years old male with multiple medical problems including COPD and Violetta asif. Patient was recently discharged from the hospital for acute COPD exacerbation Presents because of dyspnea requiring BiPAP on admission, compared to home dose of 2 L/m for his chronic hypoxic respiratory failure Patient is awake alert, feels generally weak, [employer] come to K through his BiPAP mask. Patient says that his breathing was improved after discharge but then started getting gradually worse over the last week or so. Associated with right lower quadrant of chest pain about 10/10 on admission, increase by breathing, for a few days, associated with yellow brown coughing and phlegm His legs are significantly swollen Currently he is on BiPAP 12/5 and FiO2 of 60% Patient denies change in urine or bowel habits. He feels little dizzy but no headache weakness or numbness. He denies smoking or illicit drugs, he drinks alcohol occasionally. Labs and vitals reviewed Currently he is mildly tachypneic and tachycardic with heart rate around 140 He has leukocytosis of 19.1. Creatinine elevated 1.47 compared to baseline of 1.1-0.9. Sodium 136, liver enzymes might be elevated. Temperature 97.3 and INR is unremarkable. This is Influenza A and type B, RSV, SARS (coronavirus) are and detected proBNP 477, troponin is negative less than 0.03. Troponin is -0.03 ProBNP is 4677 CTA of the chest is negative for pulmonary embolism with right lower lobe a telectasis versus pneumonia with a right pleural effusion 4.5 cm with emphysematous changes 06/03/2023 Patient looks more relaxed more awake His breathing is better His on BiPAP with setting of 12/5 and FiO2 60% Had some minimal discomfort on the right side of the abdomen, KUB is negative patient states he has normal bowel movement we wanted to rule out ileus. Discussed patient is unusual for him Also patient was found to have loculated right pleural effusion secondary to pneumonia and is currently on Zosyn. 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 HEENT: No recent visual problems or hearing problems. Denied any sore throat. CARDIOVASCULAR: No orthopnea, PND, no palpitations, no syncope. GASTROINTESTINAL: No diarrhea, no nausea, no vomiting, no abdominal pain. Normoactive bowel sounds. NEUROLOGICAL: No headaches, no weakness, no numbness. Active Medications Generic Name Dose Route Start Last Admin Trade Name Freq PRN Reason Stop Dose Admin Albuterol/Ipratropium 3 ml 06/02/23 03:19 Ipratropium-Albuterol 3 Ml Neb INHALATION RT-Q4H PRN shortness of breath Amiodarone HCl 400 mg 06/03/23 11:45 06/03/23 21:22 Amiodarone 200 Mg Tab PO 400 mg BID TRE Administration Aspirin 81 mg 06/03/23 09:00 06/03/23 08:26 Aspirin 81 Mg PO 81 mg DAILY TRE Administration Atorvastatin Calcium 20 mg 06/02/23 21:00 06/03/23 21:22 Atorvastatin 20 Mg Tab PO 20 mg HS TRE Administration Budesonide 1 mg 06/02/23 20:00 06/03/23 20:53 Budesonide 1 Mg/2 Ml Nebu INHALATION Not Given RT-BID TRE Dextrose/Water 25 ml 06/02/23 23:12 Dextrose 50% Syringe 50 Ml IVP PER PROTOCOL PRN Hypoglycemia Protocol Dextrose/Water 50 ml 06/02/23 23:12 Dextrose 50% Syringe 50 Ml IVP PER PROTOCOL PRN Hypoglycemia Protocol Famotidine 20 mg 06/02/23 21:00 06/03/23 21:22 Famotidine 20 Mg/2 Ml Vial IV 20 mg Q12HR TRE Administration Furosemide 20 mg 06/02/23 11:15 06/03/23 21:21 Furosemide 10 Mg/Ml 2 Ml Vial IV 20 mg Q12HR TRE Administration Heparin Sodium (Porcine) 5,000 unit 06/02/23 09:00 06/03/23 21:21 Heparin Sodium,Porcine 5,000 Unit/Ml 1 Ml Vial SQ 5,000 unit Q12HR TRE Administration Piperacillin Sod/Tazobactam 100 mls @ 25 mls/hr 06/02/23 12:00 06/03/23 21:20 Sod 3.375 gm/ Sodium Chloride IVPB 25 mls/hr Q8H TRE Administration Protocol Azithromycin 500 mg/ Sodium 250 mls @ 250 mls/hr 06/03/23 08:00 06/03/23 08:27 Chloride IVPB 06/04/23 08:59 250 mls/hr DAILY@0800 TRE Administration Protocol Insulin Aspart 0 unit 06/03/23 07:30 06/03/23 21:21 Insulin Aspart (Novolog) 100 Unit/Ml Vial SQ 6 unit ACHS TRE Administration Protocol Melatonin 5 mg 06/02/23 23:10 06/03/23 21:22 Melatonin 5 Mg Tablet PO 5 mg HS PRN Administration Insomnia Methylprednisolone Sodium Succinate 40 mg 06/02/23 16:00 06/03/23 17:05 Methylprednisolone Sod Succi 40 Mg/Ml 1 Ml Vial IV 40 mg Q8HR TRE Administration Metoprolol Tartrate 25 mg 06/02/23 09:00 06/03/23 21:22 Metoprolol Tartrate 25 Mg Tab PO 25 mg BID TRE Administration Miscellaneous Information 1 each 06/02/23 03:19 Pneumonia Protocol Utilized 1 Each Misc PO ONCE PRN Per Protocol Naloxone HCl 0.2 mg 06/02/23 04:08 Naloxone 0.4 Mg/Ml 1 Ml Vial IV Q2M PRN Opioid Reversal Objective - Vital Signs Vital signs: Vital Signs Temp 97.4 F L 06/03/23 11:34 Pulse 137 H 06/03/23 11:34 Resp 20 06/03/23 11:34 BP 99/58 06/03/23 11:34 Pulse Ox 98 06/03/23 11:34 FiO2 60 06/03/23 11:40 Intake & Output 06/02/23 06/03/23 06/03/23 18:59 06:59 18:59 Intake Total 357.505 Output Total 400 Balance -400 357.505 Weight 105.5 kg Intake: Intake, IV Titration 237.505 Amount Amiodarone 450 mg In 237.505 Dextrose 5% in Water 250 ml @ 0.5 MG/MIN 16.667 mls/hr IV .Q15H [facility] Rx#: [id number] Oral 120 Output: Urine 400 Other: Voiding Method External Catheter External Catheter # Voids 400 - Exam GENERAL: The patient is alert and oriented x3, not in any acute distress. Well developed, well nourished. HEENT: Pupils are round and equally reacting to light. EOMI. No scleral icterus. No conjunctival pallor. Normocephalic, atraumatic. No pharyngeal erythema. No thyromegaly. CARDIOVASCULAR: S1 and S2 present. No murmurs, rubs, or gallops. -PULMONARY: Chest is clear to auscultation, no wheezing , no crackles. Decreased breath (sounds on the right lower site ABDOMEN: Soft, nontender, nondistended, normoactive bowel sounds. No palpable organomegaly. MUSCULOSKELETAL: No joint swelling or deformity. EXTREMITIES: No cyanosis, clubbing, or pedal edema. NEUROLOGICAL: Gross neurological examination did not reveal any focal deficits. SKIN: No rashes. no petechiae. - Labs CBC & Chem 7: 06/03/23 11:08 06/03/23 11:08 Labs: Abnormal Lab Results - Last 24 Hours (Table) 06/02/23 06/02/23 06/02/23 Range/Units 01:39 20:51 23:20 WBC (3.8-10.6) k/uL Neutrophils # (1.3-7.7) k/uL Lymphocytes # (1.0-4.8) k/uL Sodium (137-145) mmol/L Carbon Dioxide (22-30) mmol/L BUN (9-20) mg/dL Glucose (74-99) mg/dL POC Glucose (mg/dL) 305 H 287 H (70-110) mg/dL Calcium (8.4-10.2) mg/dL Procalcitonin 1.48 H (0.02-0.09) ng/mL 06/03/23 06/03/23 06/03/23 Range/Units 06:15 11:08 11:08 WBC 17.5 H (3.8-10.6) k/uL Neutrophils # 16.5 H (1.3-7.7) k/uL Lymphocytes # 0.5 L (1.0-4.8) k/uL Sodium 136 L (137-145) mmol/L Carbon Dioxide 19 L (22-30) mmol/L BUN 46 H (9-20) mg/dL Glucose 317 H (74-99) mg/dL POC Glucose (mg/dL) 227 H (70-110) mg/dL Calcium 8.3 L (8.4-10.2) mg/dL Procalcitonin (0.02-0.09) ng/mL 06/03/23 Range/Units 11:36 WBC (3.8-10.6) k/uL Neutrophils # (1.3-7.7) k/uL Lymphocytes # (1.0-4.8) k/uL Sodium (137-145) mmol/L Carbon Dioxide (22-30) mmol/L BUN (9-20) mg/dL Glucose (74-99) mg/dL POC Glucose (mg/dL) 342 H (70-110) mg/dL Calcium (8.4-10.2) mg/dL Procalcitonin (0.02-0.09) ng/mL Microbiology - Last 24 Hours (Table) 06/02/23 13:53 Gram Stain - Preliminary Sputum Assessment and Plan Assessment: Right lower lobe pneumonia associated with right pleural effusion 4.5 cm, it looks loculated effusion A. fib with RVR, Acute kidney injury improving Acute COPD exacerbation, improving Obesity with BMI of 32.1. History of BPH Hypertension Plan: Continue with this and Zithromax and Zosyn Follow-up sputum culture Continue with amiodarone and aspirated Patient has loculated pleural effusion Continue with Cardizem drip Improved creatinine, patient received 1.5 L of normal saline emergency room Cardiology and pulmonary consult Labs and medication were reviewed.. Continue same treatment. Continue with symptomatic treatment. Resume home medication. Monitor labs and vitals. DVT and GI prophylaxis. Further recommendations as per clinical course of the patient DVT prophylaxis: Subcutaneous heparin GI Prophylaxis: Pepcid PT/OT: Pending Prognosis is guarded
[2023-06-04 06:11] LABS: Glucose,Whole Blood 228 mg/dL (70-110)
[2023-06-04] MEDS: ACETAMINOPHEN TAB 325 MG TAB PO PRN (06:47)
[2023-06-04 07:42] LABS: HCT 46.9 % (39.0-53.0); HGB 15.3 gm/dL (13.0-17.5); MCH 31.3 pg (25.0-35.0); MCHC 32.5 g/dL (31.0-37.0); MCV 96.1 fL (80.0-100.0); Mean Platelet Volume 7.3; Platelet Count 347 k/uL (150-450); RBC 4.88 m/uL (4.30-5.90); RDW 13.1 % (11.5-15.5)
[2023-06-04] MEDS: IPRATROPIUM-ALBUTEROL 3 ML NEB INHALATION PRN (08:10)
[2023-06-04 08:34] LABS: African American GFR (CKD) 67 (>60 ml/min/1.73 sqM); Anion Gap 15 mmol/L; Blood Urea Nitrogen 46 mg/dL (9-20); Calcium 8.5 mg/dL (8.4-10.2); Carbon Dioxide 17 mmol/L (22-30); Chloride 108 mmol/L (98-107); Glucose 227 mg/dL (74-99); Non-African American GFR(CKD) 58 (>60 ml/min/1.73 sqM); Sodium 140 mmol/L (137-145)
[2023-06-04 08:51] LABS: Potassium 4.4 mmol/L (3.5-5.1)
--- NOTE | 2023-06-04 11:17 | P.PN ---
Subjective Progress Note Date: 06/04/23 On 06/04/2023, I am seeing the patient in follow-up regarding shortness of breath. The patient was found to be in atrial fibrillation with rapid ventricular response and the patient also was found to be in heart failure with a right-sided pleural effusion. The patient continued to have increased lower e xtremity edema. The patient was seen by cardiology. The patient was switched to oral amiodarone and beta-blockers. Echocardiogram was also done on 06/02/2023 and echo showed a left ventricular ejection fraction of 40 to 45%. RV was not adequately visualized. There was a technically difficult study to evaluate. CT of the chest that was done at time of admission showed right mid lower lobe comp ressive atelectasis. Significant increase in the size of the right-sided pleural effusion compared to the earlier study that was done on 05/23/2023. No evidence of any pulm embolism. There was some mild to moderate emphysematous changes in the background. Ultrasound of the chest was also done on 06/03/2023 and the patient was found to have a complex right-sided pleural effusion measuring 4.3 cm in size. The patient's white cell count at 17.5. Hemoglobin is at 14.3. Viral screen has been negative. Troponins are negative. proBNP level is 477. Procalcitonin level is at 1.48. I reviewed the CAT scan of the chest and it is very much likely that the Is loculated right-sided effusion. There is an obvious worsening in the right-sided pleural effusion over this past few weeks as the CAT scan of the chest that was done on 05/23/2023 showed very small pleural effusion. Note that the patient is known to have COPD with chronic hypoxic respiratory failure on 2 L of oxygen by nasal cannula. Other comorbid conditions include CAD with previous coronary stenting, previous history of COVID-19 infections, hypertension, hyperlipidemia, diabetes mellitus type 2, hyperuricemia/gout, antral gastritis and previous history of lower GI bleed secondary to hemorrhoids. The patient himself is still having pain along the right side of the chest. Suspend the night on a BiPAP and currently is on 4 L of oxygen by nasal cannula. Slightly improved compared to yesterday.The white cell cause of 60 with a hemoglobin of 15.3, BUN is at 46 with a creatinine of 1.2 and a sodium level is at 140 the white cell count is slightly improved compared to yesterday. Pro-calcitonin level is at 1.48. Objective - Vital Signs Vital signs: Vital Signs Temp 97.8 F 06/04/23 08:31 Pulse 132 H 06/04/23 08:31 Resp 18 06/04/23 08:31 BP 151/74 06/04/23 08:31 Pulse Ox 93 L 06/04/23 08:31 FiO2 60 06/04/23 01:15 Intake & Output 06/03/23 06/04/23 06/04/23 18:59 06:59 18:59 Intake Total 1307.505 250 Output Total 600 1375 Balance 707.505 -1375 250 Weight 106 kg Intake: IV 10 Invasive Line 2 10 Intake, IV Titration 587.505 Amount Amiodarone 450 mg In 237.505 Dextrose 5% in Water 250 ml @ 0.5 MG/MIN 16.667 mls/hr IV .Q15H [facility] Rx#: [id number] Azithromycin 500 mg In 250 Sodium Chloride 0.9% 250 ml @ 250 mls/hr IVPB DAILY@0800 TRE Rx#: [id number] Piperacillin-Tazobactam 3 100 .375 gm In Sodium Chloride 0.9% 100 ml @ 25 mls/hr IVPB Q8H [facility] Rx#: [id number] Oral 720 240 Output: Urine 600 1375 Other: Voiding Method External Catheter External Catheter External Catheter # Voids 400 - Exam No acute distress, oriented 3. Currently off BiPAP and he is on 02 at 4 liters HEENT examination is grossly unremarkable. Neck supple. Full range of motion. No adenopathy thyromegaly or neck vein distention. Cardiovascular examination reveals an irregular rhythm and rate. S1-S2 normal. No S3 or S4. No discernible murmur noted. Lungs reveal mild scattered rhonchi. No wheezes. No crackles. Breath sounds equal bilaterally. Abdomen soft bowel sounds are heard. No masses or tenderness. Extremities are intact. No cyanosis or clubbing. 1+ edema is present. Skin is without rash or lesion. Neurologic examination is brief but nonfocal. - Labs CBC & Chem 7: 06/04/23 07:08 06/04/23 07:08 Labs: Abnormal Lab Results - Last 24 Hours (Table) 01/06/03/23 06/03/23 Range/Units 11:08 11:08 11:08 WBC 17.5 H (3.8-10.6) k/uL Neutrophils # 16.5 H (1.3-7.7) k/uL Lymphocytes # 0.5 L (1.0-4.8) k/uL Sodium 136 L (137-145) mmol/L Chloride (98-107) mmol/L Carbon Dioxide 19 L (22-30) mmol/L BUN 46 H (9-20) mg/dL Glucose 317 H (74-99) mg/dL POC Glucose (mg/dL) (70-110) mg/dL Hemoglobin A1c 8.9 H (<=6.0) % Calcium 8.3 L (8.4-10.2) mg/dL 06/03/23 06/03/23 06/03/23 Range/Units 11:36 17:01 20:01 WBC (3.8-10.6) k/uL Neutrophils # (1.3-7.7) k/uL Lymphocytes # (1.0-4.8) k/uL Sodium (137-145) mmol/L Chloride (98-107) mmol/L Carbon Dioxide (22-30) mmol/L BUN (9-20) mg/dL Glucose (74-99) mg/dL POC Glucose (mg/dL) 342 H 345 H 268 H (70-110) mg/dL Hemoglobin A1c (<=6.0) % Calcium (8.4-10.2) mg/dL 06/04/23 06/04/23 06/04/23 Range/Units 06:09 07:08 07:08 WBC 16.0 H (3.8-10.6) k/uL Neutrophils # (1.3-7.7) k/uL Lymphocytes # (1.0-4.8) k/uL Sodium (137-145) mmol/L Chloride 108 H (98-107) mmol/L Carbon Dioxide 17 L (22-30) mmol/L BUN 46 H (9-20) mg/dL Glucose 227 H (74-99) mg/dL POC Glucose (mg/dL) 228 H (70-110) mg/dL Hemoglobin A1c (<=6.0) % Calcium (8.4-10.2) mg/dL Microbiology - Last 24 Hours (Table) 06/02/23 01:50 Blood Culture - Preliminary Blood 06/02/23 01:35 Blood Culture - Preliminary Blood 06/02/23 13:53 Gram Stain - Preliminary Sputum Assessment and Plan Plan: Assessment Complex right-sided loculated pleural effusion, likely parapneumonic in the patient's shortness of breath and the pleural effusion has progressed since the initial CAT scan of the chest was done on 05/23/2023. The fluid itself is loculated. This is most likely a parapneumonic effusion that is locating itself. This fluid is not abnormal to thoracentesis. We'll discuss the findings with interventional radiology and decide if we can drain this with ultrasound guidance versus is having a pigtail catheter. 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% Hypertension Hyperlipidemia Previous history of COVID-19 in August 2020 Diabetes mellitus type 2 Coronary artery disease Acid reflux Antral gastritis Previous history of lower GI bleed related to hemorrhoids Gout Plan Continue IV Zosyn and Zithromax will consult interventional radiology for an ultrasound-guided thoracentesis versus a pigtail catheter insertion with subsequent thrombolytic treatment in an attempt to evacuate this loculated right-sided pleural effusion Management of atrial fibrillation the patient is currently on metoprolol 25 mg twice daily, amiodarone 400 has twice daily, no anticoagulants for now and the patient is only on aspirin. Continue bronchodilators Titrate oxygen flow to maintain saturation above 90% Will continue to follow
[2023-06-04 11:31] LABS: Glucose,Whole Blood 278 mg/dL (70-110)
[2023-06-04 12:27] LABS: Band Neutrophils % 2 %; Lymphocytes # (M) 0.48 k/uL (1.0-4.8); Monocytes # (M) 0.64 k/uL (0-1.0); Neutrophils % (M) 91 %; Nucleated Red Blood Cells 0 /100 WBC (0-0); Total Cells Counted 100
[2023-06-04 12:28] LABS: RBC Morphology Normal
[2023-06-04] MEDS: SPIRONOLACTONE 25 MG TAB PO SCH (14:10)
[2023-06-04] MEDS: SACUBITRIL/VALSARTAN 24 MG-26 MG TABLET PO SCH (14:11)
--- NOTE | 2023-06-04 14:41 | P.PN ---
Subjective Progress Note Date: 06/04/23 Principal diagnosis: Shortness of breath The patient is a 77-year-old [id number] gentleman who was admitted to the hospital with shortness of breath and he was found to be in atrial fibrillation with RVR. He was not on anticoagulation because of history of bleeding. He was in heart failure and the chest x-ray showed right pleural effusion was moderate. He was seen and evaluated this morning. He continues to be hypoxic VT continues to have severe bilateral lower extremity edema. The pressure has marginal. He isn't on amiodarone as this point IV which I'm going to switch him to amiodarone orally and continue the beta mac which was started yesterday. The echo still pending. 06/04 patient is seen today in follow-up. Telemetry is atrial fibrillation with RVR and 120 bpm. Repeat chest x-ray reveals moderate right pleural effusion. Echocardiogram reveals EF 40-45%, technically difficult study. Patient states that he is feeling better now than he did last week. The examination is remarkable for dementia breathing sounds bilaterally and severe bilateral lower extremity edema Assessment Atrial fibrillation with RVR Heart failure of unknown etiology at this point Evidence of right and left heart failure Right pleural effusion Multiple comorbid conditions you Plan Continue IV diuretics, lasix 40 mg every 12 hours Ddd Entresto 2426 milligrams twice daily and Aldactone 12.5 mg daily Continue beta mac Consider increasing the dose of beta mac if the heart rate remains elevated Nurse practitioner note has been reviewed, I agree with the documented findings and plan of care. Patient was seen and examined. Objective - Vital Signs Vital signs: Vital Signs Temp 97.8 F 06/04/23 08:31 Pulse 132 H 06/04/23 08:31 Resp 18 06/04/23 08:31 BP 151/74 06/04/23 08:31 Pulse Ox 93 L 06/04/23 08:31 FiO2 60 06/04/23 01:15 Intake & Output 06/03/23 06/04/23 06/04/23 18:59 06:59 18:59 Intake Total 1307.505 608 Output Total 600 1375 800 Balance 707.505 -1375 -192 Weight 106 kg Intake: IV 10 Invasive Line 2 10 Intake, IV Titration 587.505 Amount Amiodarone 450 mg In 237.505 Dextrose 5% in Water 250 ml @ 0.5 MG/MIN 16.667 mls/hr IV .Q15H [facility] Rx#: [id number] Azithromycin 500 mg In 250 Sodium Chloride 0.9% 250 ml @ 250 mls/hr IVPB DAILY@0800 [facility] Rx#: [id number] Piperacillin-Tazobactam 3 100 .375 gm In Sodium Chloride 0.9% 100 ml @ 25 mls/hr IVPB Q8H [facility] Rx#: [id number] Oral 720 598 Output: Urine 600 1375 800 Other: Voiding Method External Catheter External Catheter External Catheter # Voids 400 - Labs CBC & Chem 7: 06/04/23 07:08 06/04/23 07:08 Labs: Abnormal Lab Results - Last 24 Hours (Table) 06/03/23 06/03/23 06/03/23 Range/Units 11:08 17:01 20:01 WBC (3.8-10.6) k/uL Neutrophils # (Manual) (1.3-7.7) k/uL Lymphocytes # (Manual) (1.0-4.8) k/uL Chloride (98-107) mmol/L Carbon Dioxide (22-30) mmol/L BUN (9-20) mg/dL Glucose (74-99) mg/dL POC Glucose (mg/dL) 345 H 268 H (70-110) mg/dL Hemoglobin A1c 8.9 H (<=6.0) % 06/04/23 06/04/23 06/04/23 Range/Units 06:09 07:08 07:08 WBC 16.0 H (3.8-10.6) k/uL Neutrophils # (Manual) 14.80 H (1.3-7.7) k/uL Lymphocytes # (Manual) 0.48 L (1.0-4.8) k/uL Chloride 108 H (98-107) mmol/L Carbon Dioxide 17 L (22-30) mmol/L BUN 46 H (9-20) mg/dL Glucose 227 H (74-99) mg/dL POC Glucose (mg/dL) 228 H (70-110) mg/dL Hemoglobin A1c (<=6.0) % 06/04/23 Range/Units 11:27 WBC (3.8-10.6) k/uL Neutrophils # (Manual) (1.3-7.7) k/uL Lymphocytes # (Manual) (1.0-4.8) k/uL Chloride (98-107) mmol/L Carbon Dioxide (22-30) mmol/L BUN (9-20) mg/dL Glucose (74-99) mg/dL POC Glucose (mg/dL) 278 H (70-110) mg/dL Hemoglobin A1c (<=6.0) % Microbiology - Last 24 Hours (Table) 06/02/23 01:50 Blood Culture - Preliminary Blood 06/02/23 01:35 Blood Culture - Preliminary Blood 06/02/23 13:53 Gram Stain - Preliminary Sputum
--- NOTE | 2023-06-04 15:34 | P.PN ---
Subjective This is a pleasant 77 years old male with multiple medical problems including COPD and Violetta asif. 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 Patient says that his breathing was improved after discharge but then started getting gradually worse over the last week or so. Associated with right lower quadrant of chest pain about 10/10 on admission, increase by breathing, for a few days, associated with yellow brown coughing and phlegm His legs are significantly swollen Currently he is on BiPAP 12/5 and FiO2 of 60% Patient denies change in urine or bowel habits. He feels little dizzy but no headache weakness or numbness. He denies smoking or illicit drugs, he drinks alcohol occasionally. Labs and vitals reviewed Currently he is mildly tachypneic and tachycardic with heart rate around 140 He has leukocytosis of 19.1. Creatinine elevated 1.47 compared to baseline of 1.1-0.9. Sodium 136, liver enzymes might be elevated. Temperature 97.3 and INR is unremarkable. This is Influenza A and type B, RSV, SARS (coronavirus) are and detected proBNP 477, troponin is negative less than 0.03. Troponin is -0.03 ProBNP is 4677 CTA of the chest is negative for pulmonary embolism with right lower lobe a telectasis versus pneumonia with a right pleural effusion 4.5 cm with emphysematous changes 06/03/2023 Patient looks more relaxed more awake His breathing is better His on BiPAP with setting of 12/5 and FiO2 60% Had some minimal discomfort on the right side of the abdomen, KUB is negative patient states he has normal bowel movement we wanted to rule out ileus. Discussed patient is unusual for him Also patient was found to have loculated right pleural effusion secondary to pneumonia and is currently on Zosyn. Physical dictated also by Violetta asif and tachycardia and currently placed on amiodarone and aspirin 81 mg by political theory professor 06/04/2023 Patient breathing is improving slowly and gradually Patient STILL uncontrolled and cardiology following closely, he is currently on IV Lasix twice daily as well as beta mac and amiodarone 400 mg twice daily. Aldactone 12.5 and an entresto was added today by political theory professor Abdomen that is improving breathing, history using the BiPAP on and off. His tachycardic with a rate 137 this morning Leukocytosis improving down to 16k, , creatinine stable at 1.2 on his sputum culture is growing Pseudomonas and gram-negative bacilli Patient currently covered with Zithromax and Zosyn Consult interventional radiology for possible aspiration of a limited right p leural effusion, otherwise may consider pigtail placement He remains on IV some Inderal 40 mg twice daily. Keep monitoring creatinine Review of systems CONSTITUTIONAL: No fever, no malaise, no fatigue. HEENT: No recent visual problems or hearing problems. Denied any sore throat. CARDIOVASCULAR: No orthopnea, PND, no palpitations, no syncope. GASTROINTESTINAL: No diarrhea, no nausea, no vomiting, no abdominal pain. Normoactive bowel sounds. NEUROLOGICAL: No headaches, no weakness, no numbness. Active Medications Generic Name Dose Route Start Last Admin Trade Name Freq PRN Reason Stop Dose Admin Acetaminophen 650 mg 06/04/23 06:40 06/04/23 06:47 Acetaminophen Tab 325 Mg Tab PO 650 mg Q6HR PRN Administration Moderate Pain (Scale 4 to 6) Albuterol/Ipratropium 3 ml 06/02/23 03:19 06/04/23 08:10 Ipratropium-Albuterol 3 Ml Neb INHALATION 3 ml RT-Q4H PRN Administration shortness of breath Amiodarone HCl 400 mg 06/03/23 11:45 06/04/23 08:32 Amiodarone 200 Mg Tab PO 400 mg BID TRE Administration Atorvastatin Calcium 20 mg 06/02/23 21:00 06/03/23 21:22 Atorvastatin 20 Mg Tab PO 20 mg HS TRE Administration Budesonide 1 mg 06/02/23 20:00 06/04/23 08:10 Budesonide 1 Mg/2 Ml Nebu INHALATION 1 mg RT-BID TRE Administration Dextrose/Water 25 ml 06/02/23 23:12 Dextrose 50% Syringe 50 Ml IVP PER PROTOCOL PRN Hypoglycemia Protocol Dextrose/Water 50 ml 06/02/23 23:12 Dextrose 50% Syringe 50 Ml IVP PER PROTOCOL PRN Hypoglycemia Protocol Famotidine 20 mg 06/02/23 21:00 06/04/23 08:32 Famotidine 20 Mg/2 Ml Vial IV 20 mg Q12HR TRE Administration Furosemide 40 mg 06/04/23 21:00 Furosemide 10 Mg/Ml 4 Ml Vial IV Q12HR TRE Heparin Sodium (Porcine) 5,000 unit 06/02/23 09:00 06/04/23 08:31 Heparin Sodium,Porcine 5,000 Unit/Ml 1 Ml Vial SQ 5,000 unit Q12HR TRE Administration Piperacillin Sod/Tazobactam 100 mls @ 25 mls/hr 06/02/23 12:00 06/04/23 12:33 Sod 3.375 gm/ Sodium Chloride IVPB 25 mls/hr Q8H TRE Administration Protocol Insulin Aspart 0 unit 06/03/23 07:30 06/04/23 12:34 Insulin Aspart (Novolog) 100 Unit/Ml Vial SQ 6 unit ACHS TRE Administration Protocol Melatonin 5 mg 06/02/23 23:10 06/03/23 21:22 Melatonin 5 Mg Tablet PO 5 mg HS PRN Administration Insomnia Metoprolol Tartrate 25 mg 06/02/23 09:00 06/04/23 08:32 Metoprolol Tartrate 25 Mg Tab PO 25 mg BID TRE Administration Miscellaneous Information 1 each 06/02/23 03:19 Pneumonia Protocol Utilized 1 Each Misc PO ONCE PRN Per Protocol Naloxone HCl 0.2 mg 06/02/23 04:08 Naloxone 0.4 Mg/Ml 1 Ml Vial IV Q2M PRN Opioid Reversal Sacubitril/Valsartan 1 each 06/04/23 13:02 06/04/23 14:11 Sacubitril/Valsartan 24 Mg-26 Mg Tablet PO 1 each BID TRE Administration Spironolactone 12.5 mg 06/04/23 13:30 06/04/23 14:10 Spironolactone 25 Mg Tab PO 12.5 mg DAILY TRE Administration Objective - Vital Signs Vital signs: Vital Signs Temp 97.8 F 06/04/23 08:31 Pulse 137 H 06/04/23 14:09 Resp 18 06/04/23 14:09 BP 135/88 06/04/23 14:09 Pulse Ox 99 06/04/23 14:09 FiO2 60 06/04/23 01:15 Intake & Output 06/03/23 06/04/23 06/04/23 18:59 06:59 18:59 Intake Total 1307.505 618 Output Total 600 1375 800 Balance 751.170 -5906 -182 Weight 106 kg Intake: IV 20 Invasive Line 2 20 Intake, IV Titration 587.505 Amount Amiodarone 450 mg In 237.505 Dextrose 5% in Water 250 ml @ 0.5 MG/MIN 16.667 mls/hr IV .Q15H TRE Rx#: [id number] Azithromycin 500 mg In 250 Sodium Chloride 0.9% 250 ml @ 250 mls/hr IVPB DAILY@0800 TRE Rx#: [id number] Piperacillin-Tazobactam 3 100 .375 gm In Sodium Chloride 0.9% 100 ml @ 25 mls/hr IVPB Q8H [facility] Rx#: [id number] Oral 720 598 Output: Urine 600 1375 800 Other: Voiding Method External Catheter External Catheter External Catheter # Voids 400 - Exam GENERAL: The patient is alert and oriented x3, not in any acute distress. Well developed, well nourished. HEENT: Pupils are round and equally reacting to light. EOMI. No scleral icterus. No conjunctival pallor. Normocephalic, atraumatic. No pharyngeal erythema. No thyromegaly. CARDIOVASCULAR: S1 and S2 present. No murmurs, rubs, or gallops. -PULMONARY: Chest is clear to auscultation, no wheezing , no crackles. Decreased breath (sounds on the right lower site ABDOMEN: Soft, nontender, nondistended, normoactive bowel sounds. No palpable organomegaly. MUSCULOSKELETAL: No joint swelling or deformity. EXTREMITIES: No cyanosis, clubbing, or pedal edema. NEUROLOGICAL: Gross neurological examination did not reveal any focal deficits. SKIN: No rashes. no petechiae. - Labs CBC & Chem 7: 06/04/23 07:08 06/04/23 07:08 Labs: Abnormal Lab Results - Last 24 Hours (Table) 06/03/23 06/03/23 06/03/23 Range/Units 11:08 17:01 20:01 WBC (3.8-10.6) k/uL Neutrophils # (Manual) (1.3-7.7) k/uL Lymphocytes # (Manual) (1.0-4.8) k/uL Chloride (98-107) mmol/L Carbon Dioxide (22-30) mmol/L BUN (9-20) mg/dL Glucose (74-99) mg/dL POC Glucose (mg/dL) 345 H 268 H (70-110) mg/dL Hemoglobin A1c 8.9 H (<=6.0) % 06/04/23 06/04/23 06/04/23 Range/Units 06:09 07:08 07:08 WBC 16.0 H (3.8-10.6) k/uL Neutrophils # (Manual) 14.80 H (1.3-7.7) k/uL Lymphocytes # (Manual) 0.48 L (1.0-4.8) k/uL Chloride 108 H (98-107) mmol/L Carbon Dioxide 17 L (22-30) mmol/L BUN 46 H (9-20) mg/dL Glucose 227 H (74-99) mg/dL POC Glucose (mg/dL) 228 H (70-110) mg/dL Hemoglobin A1c (<=6.0) % 06/04/23 Range/Units 11:27 WBC (3.8-10.6) k/uL Neutrophils # (Manual) (1.3-7.7) k/uL Lymphocytes # (Manual) (1.0-4.8) k/uL Chloride (98-107) mmol/L Carbon Dioxide (22-30) mmol/L BUN (9-20) mg/dL Glucose (74-99) mg/dL POC Glucose (mg/dL) 278 H (70-110) mg/dL Hemoglobin A1c (<=6.0) % Microbiology - Last 24 Hours (Table) 06/02/23 13:53 Gram Stain - Preliminary Sputum Sputum Culture - Preliminary Pseudomonas spec Gram Neg Bacilli 06/02/23 01:50 Blood Culture - Preliminary Blood 06/02/23 01:35 Blood Culture - Preliminary Blood Assessment and Plan Assessment: Right lower lobe pneumonia associated with right pleural effusion 4.5 cm, it looks loculated effusion A. fib with RVR, present on admission Acute kidney injury improving, possible elements of chronic kidney disease stage III Acute COPD exacerbation, improving Obesity with BMI of 32.1. History of BPH Hypertension Plan: Continue with this and Zithromax and Zosyn Follow-up sputum culture results Continue with amiodarone and other cardiac medication Patient has loculated pleural effusion, consult interventional radiology for possible aspiration Improved creatinine, patient received 1.5 L of normal saline emergency room. Keep monitoring creatinine Cardiology and pulmonary consult Continue with BiPAP as needed Labs and medication were reviewed.. Continue same treatment. Continue with symptomatic treatment. Resume home medication. Monitor labs and vitals. DVT and GI prophylaxis. Further recommendations as per clinical course of the patient DVT prophylaxis: Subcutaneous heparin GI Prophylaxis: Pepcid PT/OT: Pending Prognosis is guarded
[2023-06-04 16:15] LABS: Glucose,Whole Blood 279 mg/dL (70-110)
[2023-06-04] MEDS: DILTIAZEM DRIP BOLUS FROM BAG 1 MG SOLN IV ONE (19:00)
[2023-06-04] MEDS: DILTIAZEM 125 MG in SODIUM CHLORIDE 0.9% 100 ML IV SCH (19:00)
[2023-06-04 20:10] LABS: Glucose,Whole Blood 270 mg/dL (70-110)
[2023-06-04] MEDS: FUROSEMIDE 10 MG/ML 4 ML VIAL IV SCH (20:47)
[2023-06-05 06:09] LABS: Glucose,Whole Blood 232 mg/dL (70-110)
[2023-06-05 10:07] LABS: ALT 62 U/L (4-49); AST 53 U/L (17-59); African American GFR (CKD) 78 (>60 ml/min/1.73 sqM); Albumin 2.7 g/dL (3.5-5.0); Alkaline Phosphatase 167 U/L (38-126); Anion Gap 11 mmol/L; Blood Urea Nitrogen 32 mg/dL (9-20); Calcium 8.2 mg/dL (8.4-10.2); Carbon Dioxide 20 mmol/L (22-30); Chloride 109 mmol/L (98-107); Glucose 215 mg/dL (74-99); Non-African American GFR(CKD) 67 (>60 ml/min/1.73 sqM); Potassium 4.1 mmol/L (3.5-5.1); Sodium 140 mmol/L (137-145); Total Bilirubin 0.8 mg/dL (0.2-1.3); Total Protein 5.5 g/dL (6.3-8.2)
[2023-06-05 10:18] LABS: Basophils # (A) 0.1 k/uL (0-0.2); Basophils % (A) 1 %; Eosinophils % (A) 0 %; HCT 47.7 % (39.0-53.0); HGB 16.1 gm/dL (13.0-17.5); Lymphocytes # (A) 0.9 k/uL (1.0-4.8); Lymphocytes % (A) 8 %; MCH 32.2 pg (25.0-35.0); MCHC 33.8 g/dL (31.0-37.0); MCV 95.3 fL (80.0-100.0); Mean Platelet Volume 9.1; Monocytes # (A) 0.4 k/uL (0-1.0); Monocytes % (A) 4 %; Neutrophils # (A) 10.2 k/uL (1.3-7.7); Neutrophils % (A) 87 %; Platelet Count 237 k/uL (150-450); RBC 5.01 m/uL (4.30-5.90); RDW 13.3 % (11.5-15.5); WBC 11.7 k/uL (3.8-10.6)
[2023-06-05] MEDS: APIXABAN 5 MG TAB PO SCH (11:26)
--- NOTE | 2023-06-05 11:29 | XR ---
EXAMINATION TYPE: XR chest 1V portable DATE OF EXAM: 06/05/2023 COMPARISON: 06/03/2023 HISTORY: Shortness of breath TECHNIQUE: Single frontal view of the chest is obtained. FINDINGS: Right lower lobe consolidation and small effusion. Underlying COPD. Diffuse osteopenia wit h arthropathy of the shoulders. No pneumothorax. Atherosclerotic change aorta. IMPRESSION: Right lower lobe infiltrate and small to moderate pleural effusion stable.
[2023-06-05 11:43] LABS: Glucose,Whole Blood 210 mg/dL (70-110)
[2023-06-05] MEDS: METOPROLOL TARTRATE 25 MG TAB PO STA (11:53)
--- NOTE | 2023-06-05 12:31 | P.PN ---
Subjective Progress Note Date: 06/05/23 On 06/04/2023, I am seeing the patient in follow-up regarding shortness of breath. The patient was found to be in atrial fibrillation with rapid ventricular response and the patient also was found to be in heart failure with a right-sided pleural effusion. The patient continued to have increased lower e xtremity edema. The patient was seen by cardiology. The patient was switched to oral amiodarone and beta-blockers. Echocardiogram was also done on 06/02/2023 and echo showed a left ventricular ejection fraction of 40 to 45%. RV was not adequately visualized. There was a technically difficult study to evaluate. CT of the chest that was done at time of admission showed right mid lower lobe comp ressive atelectasis. Significant increase in the size of the right-sided pleural effusion compared to the earlier study that was done on 05/23/2023. No evidence of any pulm embolism. There was some mild to moderate emphysematous changes in the background. Ultrasound of the chest was also done on 06/03/2023 and the patient was found to have a complex right-sided pleural effusion measuring 4.3 cm in size. The patient's white cell count at 17.5. Hemoglobin is at 14.3. Viral screen has been negative. Troponins are negative. proBNP level is 477. Procalcitonin level is at 1.48. I reviewed the CAT scan of the chest and it is very much likely that the Is loculated right-sided effusion. There is an obvious worsening in the right-sided pleural effusion over this past few weeks as the CAT scan of the chest that was done on 05/23/2023 showed very small pleural effusion. Note that the patient is known to have COPD with chronic hypoxic respiratory failure on 2 L of oxygen by nasal cannula. Other comorbid conditions include CAD with previous coronary stenting, previous history of COVID-19 infections, hypertension, hyperlipidemia, diabetes mellitus type 2, hyperuricemia/gout, antral gastritis and previous history of lower GI bleed secondary to hemorrhoids. The patient himself is still having pain along the right side of the chest. Suspend the night on a BiPAP and currently is on 4 L of oxygen by nasal cannula. Slightly improved compared to yesterday.The white cell cause of 60 with a hemoglobin of 15.3, BUN is at 46 with a creatinine of 1.2 and a sodium level is at 140 the white cell count is slightly improved compared to yesterday. Pro-calcitonin level is at 1.48. On today's evaluation of 06/05/2023, patient is being seen for a follow-up. The patient was supposed to have a thoracentesis. This was canceled and the patient went into atrial fibrillation with rapid ventricular response. The patient is currently being seen by cardiology regarding the nature. He is still tachycardic. He remains on amiodarone 4 mg by mouth twice a day and he was also placed on metoprolol 50 mg twice a day and is also taking Cardizem drip at 5 mg an hour. We will hold anticoagulation in anticipation for thoracentesis within next 24 hours. A repeat chest x-ray was ordered to evaluate progression of the right-sided pleural effusion which is essentially considered to be a parapne umonic pleural effusion which is loculated. The sputum is also positive for Pseudomonas and Serratia. The patient is currently on IV Zosyn which is adequate for those microorganisms. The patient remains on bronchodilators. The patient is also on Lasix 40 mg IV every 12 hours. His oxygen requirements at 4 L and the patient's pulse ox in the order of 93% his echocardiogram showed a mild impairment of LV function with an ejection fraction of 40-45%. RV and the right-sided pressures were essentially within normal limits to no significant valvular abnormalities. Objective - Vital Signs Vital signs: Vital Signs Temp 97.8 F 06/05/23 08:24 Pulse 153 H 06/05/23 08:24 Resp 16 06/05/23 08:24 BP 109/83 06/05/23 08:24 Pulse Ox 93 L 06/05/23 08:41 FiO2 60 06/05/23 05:07 Intake & Output 06/04/23 06/05/23 06/05/23 18:59 06:59 18:59 Intake Total 728 20 Output Total 1400 1300 Balance -672 -1280 Weight 106 kg Intake: IV 20 20 Invasive Line 2 20 Invasive Line 3 20 Oral 708 Output: Urine 1400 1300 Other: Voiding Method External Catheter External Catheter External Catheter - Exam No acute distress, oriented 3. Currently off BiPAP and he is on 02 at 4 liters HEENT examination is grossly unremarkable. Neck supple. Full range of motion. No adenopathy thyromegaly or neck vein distention. Cardiovascular examination reveals an irregular rhythm and rate. S1-S2 normal. No S3 or S4. No discernible murmur noted. Lungs reveal mild scattered rhonchi. No wheezes. No crackles. There is obvious diminished in the breath sounds on the right lung base along with dullness to percussion Abdomen soft bowel sounds are heard. No masses or tenderness. Extremities are intact. No cyanosis or clubbing. 1+ edema is present. Skin is without rash or lesion. Neurologic examination is brief but nonfocal. - Labs CBC & Chem 7: 06/05/23 08:43 06/05/23 08:43 Labs: Abnormal Lab Results - Last 24 Hours (Table) 06/04/23 06/04/23 06/04/23 Range/Units 07:08 11:27 16:14 WBC (3.8-10.6) k/uL Neutrophils # (1.3-7.7) k/uL Neutrophils # (Manual) 14.80 H (1.3-7.7) k/uL Lymphocytes # (1.0-4.8) k/uL Lymphocytes # (Manual) 0.48 L (1.0-4.8) k/uL Chloride (98-107) mmol/L Carbon Dioxide (22-30) mmol/L BUN (9-20) mg/dL Glucose (74-99) mg/dL POC Glucose (mg/dL) 278 H 279 H (70-110) mg/dL Calcium (8.4-10.2) mg/dL ALT (4-49) U/L Alkaline Phosphatase (38-126) U/L Total Protein (6.3-8.2) g/dL Albumin (3.5-5.0) g/dL 06/04/23 06/05/23 06/05/23 Range/Units 19:49 05:46 08:43 WBC 11.7 H (3.8-10.6) k/uL Neutrophils # 10.2 H (1.3-7.7) k/uL Neutrophils # (Manual) (1.3-7.7) k/uL Lymphocytes # 0.9 L (1.0-4.8) k/uL Lymphocytes # (Manual) (1.0-4.8) k/uL Chloride (98-107) mmol/L Carbon Dioxide (22-30) mmol/L BUN (9-20) mg/dL Glucose (74-99) mg/dL POC Glucose (mg/dL) 270 H 232 H (70-110) mg/dL Calcium (8.4-10.2) mg/dL ALT (4-49) U/L Alkaline Phosphatase (38-126) U/L Total Protein (6.3-8.2) g/dL Albumin (3.5-5.0) g/dL 06/05/23 Range/Units 08:43 WBC (3.8-10.6) k/uL Neutrophils # (1.3-7.7) k/uL Neutrophils # (Manual) (1.3-7.7) k/uL Lymphocytes # (1.0-4.8) k/uL Lymphocytes # (Manual) (1.0-4.8) k/uL Chloride 109 H (98-107) mmol/L Carbon Dioxide 20 L (22-30) mmol/L BUN 32 H (9-20) mg/dL Glucose 215 H (74-99) mg/dL POC Glucose (mg/dL) (70-110) mg/dL Calcium 8.2 L (8.4-10.2) mg/dL ALT 62 H (4-49) U/L Alkaline Phosphatase 167 H (38-126) U/L Total Protein 5.5 L (6.3-8.2) g/dL Albumin 2.7 L (3.5-5.0) g/dL Microbiology - Last 24 Hours (Table) 06/02/23 13:53 Gram Stain - Preliminary Sputum Sputum Culture - Preliminary Pseudomonas spec Gram Neg Bacilli 06/02/23 01:50 Blood Culture - Preliminary Blood 06/02/23 01:35 Blood Culture - Preliminary Blood Assessment and Plan Plan: Assessment Complex right-sided loculated pleural effusion, likely parapneumonic in the patient's shortness of breath and the pleural effusion has progressed since the initial CAT scan of the chest was done on 05/23/2023. The fluid itself is locula yocasta. This is most likely a parapneumonic effusion that is locating itself. This fluid is not abnormal to thoracentesis. We'll discuss the findings with interventional radiology and decide if we can drain this with ultrasound guidance versus is having a pigtail catheter. The procedure was supposed to be done yesterday and the patient went into atrial fibrillation with RVR. As such, the procedure has been postponed. Right lower lobe pneumonia with sputum showing Pseudomonas and Serratia, chuck ceptible to Zosyn Shortness of breath, likely secondary to above, currently off the BiPAP and the patient is currently on 4 L of oxygen by nasal cannula Acute on chronic hypoxic respiratory failure currently on 4 L, typically on 2 L at home A-fib/RVR under the care of cardiology, the patient continues to have tachycardia, currently on a combination of amiodarone, metoprolol and Cardizem drip at 5 mg an hour. 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 The patient is currently on amiodarone 400 mg twice a day, metoprolol 50 mg by mouth twice a day and Cardizem 5 mg an hour. Continue bronchodilators Titrate oxygen flow to maintain saturation above 90% Will continue to follow
--- NOTE | 2023-06-05 15:28 | P.PN ---
Subjective Progress Note Date: 06/05/23 Principal diagnosis: Shortness of breath The patient is a 77-year-old [id number] gentleman who was admitted to the hospital with shortness of breath and he was found to be in atrial fibrillation with RVR. He was not on anticoagulation because of history of bleeding. He was in heart failure and the chest x-ray showed right pleural effusion was moderate. He was seen and evaluated this morning. He continues to be hypoxic VT continues to have severe bilateral lower extremity edema. The pressure has marginal. He isn't on amiodarone as this point IV which I'm going to switch him to amiodarone orally and continue the beta mac which was started yesterday. The echo still pending. 06/04 patient is seen today in follow-up. Telemetry is atrial fibrillation with RVR and 120 bpm. Repeat chest x-ray reveals moderate right pleural effusion. Echocardiogram reveals EF 40-45%, technically difficult study. Patient states that he is feeling better now than he did last week. 06/05 Patient remains in A. fib with RVR and during the night was started on Cardizem drip currently at 5 mg per hour and this was following a bolus of 10 mg. Patient is currently on amiodarone 400 mg twice daily. Patient has Eloy wrap so were added to the lower extremities. Hemoglobin and platelet count are stable. Discussed with patient option of resuming anticoagulation although he has been off it for some time due to bruising and bleeding. Dr. Scales is planning for possible for him to disease ceases by tomorrow either by himself or IR. We will hold on starting eliquis until this is completed. Yesterday, patient was started on Entresto and Aldactone. The examination is remarkable for dementia breathing sounds bilaterally and severe bilateral lower extremity edema Assessment Atrial fibrillation with RVR Heart failure of unknown etiology at this point Evidence of right and left heart failure Right pleural effusion Multiple comorbid conditions you Plan Continue IV diuretics, lasix 40 mg every 12 hours Monitor I&O, daily weights, electrolytes and renal function Continue Entresto 2426 milligrams twice daily and Aldactone 12.5 mg daily Continue patient on Cardizem drip at 5 mg per hour Increase Lopressor to 50 mg twice daily Patient will be started on eliquis following thoracentesis. Nurse practitioner note has been reviewed, I agree with the documented findings and plan of care. Patient was seen and examined. Objective - Vital Signs Vital signs: Vital Signs Temp 97.8 F 06/05/23 08:24 Pulse 136 H 06/05/23 11:52 Resp 20 06/05/23 11:52 BP 129/90 06/05/23 11:52 Pulse Ox 93 L 06/05/23 11:52 FiO2 60 06/05/23 05:07 Intake & Output 06/04/23 06/05/23 06/05/23 18:59 06:59 18:59 Intake Total 728 20 88.5 Output Total 1400 1300 Balance -672 -1280 88.5 Weight 106 kg Intake: IV 20 20 Invasive Line 2 20 Invasive Line 3 20 Intake, IV Titration 88.5 Amount Diltiazem 125 mg In 88.5 Sodium Chloride 0.9% 100 ml @ 5 MG/HR 5 mls/hr IV .Q24H [facility] Rx#:[id number] Oral 708 Output: Urine 1400 1300 Other: Voiding Method External Catheter External Catheter External Catheter - Labs CBC & Chem 7: 06/05/23 08:43 06/05/23 08:43 Labs: Abnormal Lab Results - Last 24 Hours (Table) 06/04/23 06/04/23 06/05/23 Range/Units 16:14 19:49 05:46 WBC (3.8-10.6) k/uL Neutrophils # (1.3-7.7) k/uL Lymphocytes # (1.0-4.8) k/uL Chloride (98-107) mmol/L Carbon Dioxide (22-30) mmol/L BUN (9-20) mg/dL Glucose (74-99) mg/dL POC Glucose (mg/dL) 279 H 270 H 232 H (70-110) mg/dL Calcium (8.4-10.2) mg/dL ALT (4-49) U/L Alkaline Phosphatase (38-126) U/L Total Protein (6.3-8.2) g/dL Albumin (3.5-5.0) g/dL 06/05/23 06/05/23 06/05/23 Range/Units 08:43 08:43 11:41 WBC 11.7 H (3.8-10.6) k/uL Neutrophils # 10.2 H (1.3-7.7) k/uL Lymphocytes # 0.9 L (1.0-4.8) k/uL Chloride 109 H (98-107) mmol/L Carbon Dioxide 20 L (22-30) mmol/L BUN 32 H (9-20) mg/dL Glucose 215 H (74-99) mg/dL POC Glucose (mg/dL) 210 H (70-110) mg/dL Calcium 8.2 L (8.4-10.2) mg/dL ALT 62 H (4-49) U/L Alkaline Phosphatase 167 H (38-126) U/L Total Protein 5.5 L (6.3-8.2) g/dL Albumin 2.7 L (3.5-5.0) g/dL Microbiology - Last 24 Hours (Table) 06/02/23 01:50 Blood Culture - Preliminary Blood 06/02/23 01:35 Blood Culture - Preliminary Blood 06/02/23 13:53 Gram Stain - Preliminary Sputum Sputum Culture - Preliminary Pseudomonas aeruginosa Serratia marcescens
[2023-06-05 16:52] LABS: Glucose,Whole Blood 167 mg/dL (70-110)
[2023-06-05 20:04] LABS: Glucose,Whole Blood 186 mg/dL (70-110)
[2023-06-05] MEDS: METOPROLOL TARTRATE 50 MG TAB PO SCH (23:02)
--- NOTE | 2023-06-06 05:30 | P.PN ---
Subjective Progress Note Date: 06/05/23 This is a pleasant 77 years old male with multiple medical problems including COPD and Violetta asif. Patient was recently discharged from the hospital for acute COPD exacerbation Presents because of dyspnea requiring BiPAP on admission, compared to home dose of 2 L/m for his chronic hypoxic respiratory failure Patient is awake alert, feels generally weak, WINE AND SPIRITS CLERK come to K through his BiPAP mask. Patient says that his breathing was improved after discharge but then started getting gradually worse over the last week or so. Associated with right lower quadrant of chest pain about 10/10 on admission, increase by breathing, for a few days, associated with yellow brown coughing and phlegm His legs are significantly swollen Currently he is on BiPAP 12/5 and FiO2 of 60% Patient denies change in urine or bowel habits. He feels little dizzy but no headache weakness or numbness. He denies smoking or illicit drugs, he drinks alcohol occasionally. Labs and vitals reviewed Currently he is mildly tachypneic and tachycardic with heart rate around 140 He has leukocytosis of 19.1. Creatinine elevated 1.47 compared to baseline of 1.1-0.9. Sodium 136, liver enzymes might be elevated. Temperature 97.3 and INR is unremarkable. This is Influenza A and type B, RSV, SARS (coronavirus) are and detected proBNP 477, t roponin is negative less than 0.03. Troponin is -0.03 ProBNP is 4677 CTA of the chest is negative for pulmonary embolism with right lower lobe atelectasis versus pneumonia with a right pleural effusion 4.5 cm with emphysematous changes 06/03/2023 Patient looks more relaxed more awake His breathing is better His on BiPAP with setting of 12/5 and FiO2 60% Had some minimal discomfort on the right side of the abdomen, KUB is negative patient states he has normal bowel movement we wanted to rule out ileus. Discussed patient is unusual for him Also patient was found to have loculated right pleural effusion secondary to pneumonia and is currently on Zosyn. Physical dictated also by Violetta asif and tachycardia and currently placed on amiodarone and aspirin 81 mg by traffic signal mechanic 06/04/2023 Patient breathing is improving slowly and gradually Patient STILL uncontrolled and cardiology following closely, he is currently on IV Lasix twice daily as well as beta mac and amiodarone 400 mg twice daily. Aldactone 12.5 and an entresto was added today by traffic signal mechanic Abdomen that is improving breathing, history using the BiPAP on and off. His tachycardic with a rate 137 this morning Leukocytosis improving down to 16k, , creatinine stable at 1.2 on his sputum culture is growing Pseudomonas and gram-negative bacilli Patient currently covered with Zithromax and Zosyn Consult interventional radiology for possible aspiration of a limited right pleural effusion, otherwise may consider pigtail placement He remains on IV Lasix 40 mg twice daily. Keep monitoring creatinine 06/05/2023 Patient is seen in follow-up today with cardiology and pulmonary following. Interventional radiology consulted with concerns of right pleural effusion with possible loculation and was scheduled the have possible aspiration or pigtail catheter although patient had increased heart rate in the 150s and in atrial fi brillation with RVR. Patient was placed back on Cardizem with cardiology making adjustments to medications. Patient is afebrile and denies worsening shortness of breath although continues to have shortness of breath and maintained on 4 L via nasal cannula. Patient has not required BiPAP. Patient is extremely weak and encouraged increased activity as tolerated and sitting up in the chair more often. Elevate lower extremities and continue with Eloy wraps from the toes up to the knees. Patient was continued on IV Lasix twice daily although clinically appears dry and will hold Lasix for now and follow up on repeat labs. Interventional radiology to reevaluate once heart rate is better controlled. Review of systems CONSTITUTIONAL: No fever, no malaise, no fatigue. HEENT: No recent visual problems or hearing problems. Denied any sore throat. CARDIOVASCULAR: No orthopnea, PND, no palpitations, no syncope. GASTROINTESTINAL: No diarrhea, no nausea, no vomiting, no abdominal pain. Nor moactive bowel sounds. NEUROLOGICAL: No headaches, reports of generalized weakness, no numbness. Physical exam: GENERAL: The patient is alert and oriented x3, not in any acute distress. Well developed, well nourished. HEENT: Pupils are round and equally reacting to light. EOMI. No scleral icterus. No conjunctival pallor. Normocephalic, atraumatic. No pharyngeal erythema. No thyromegaly. CARDIOVASCULAR: S1 and S2 present. No murmurs, rubs, or gallops. PULMONARY: Chest is clear to auscultation, no wheezing , no crackles. Decreased breath sounds on the right ABDOMEN: Soft, nontender, nondistended, normoactive bowel sounds. No palpable organomegaly. MUSCULOSKELETAL: No joint swelling or deformity. EXTREMITIES: No cyanosis, clubbing, or pedal edema. Patient has some mild bilateral lower extremity edema noted, nonpitting and Eloy wraps have been applied NEUROLOGICAL: Gross neurological examination did not reveal any focal deficits. Diffusely weak SKIN: No rashes. no petechiae. Assessment: Right lower lobe pneumonia associated with right pleural effusion 4.5 cm, it looks loculated effusion A. fib with RVR, present on admission Acute kidney injury improving, possible elements of chronic kidney disease stage III Acute COPD exacerbation, improving Obesity with BMI of 32.1. History of BPH Hypertension GI prophylaxis DVT prophylaxis Full code Plan: Patient is continued on IV Zosyn as sputum culture showed Pseudomonas with serratia and Corynebacterium striatum Pulmonary along with cardiology following and interventional radiology consulted for possibility of Pleurx catheter placement for continued right pleural effusion that appears loculated Patient was scheduled initially to undergo IR intervention although patient into A. fib RVR and is currently with heart rate in the 150s and resumed on Cardizem Cardiology following and has adjusted medications and patient was continued on IV Lasix twice daily. Clinically patient appears dry will hold Lasix for now and follow up on repeat labs Wean FiO2 as tolerated. Patient currently on 4 L and has not required BiPAP The impression and plan of care has been dictated by Namita Chavarria, Nurse Practitioner as directed. Dr. Brianna MD I have performed a history and examination and MDM of this patient, discussed the same with the dictator, and agree with the dictator's assessment and plan as written ,documented as a scribe. Based on total visit time, I have performed more than 50% of the visit. Objective - Vital Signs Vital signs: Vital Signs Temp 97.8 F 06/05/23 08:24 Pulse 153 H 06/05/23 08:24 Resp 16 06/05/23 08:24 BP 109/83 06/05/23 08:24 Pulse Ox 93 L 06/05/23 08:41 FiO2 60 06/05/23 05:07 Intake & Output 06/04/23 06/05/23 06/05/23 18:59 06:59 18:59 Intake Total 728 20 Output Total 1400 1300 Balance -672 -1280 Weight 106 kg Intake: IV 20 20 Invasive Line 2 20 Invasive Line 3 20 Oral 708 Output: Urine 1400 1300 Other: Voiding Method External Catheter External Catheter External Catheter - Labs CBC & Chem 7: 06/05/23 08:43 06/05/23 08:43 Labs: Abnormal Lab Results - Last 24 Hours (Table) 06/04/23 06/04/23 06/04/23 Range/Units 07:08 11:27 16:14 WBC (3.8-10.6) k/uL Neutrophils # (1.3-7.7) k/uL Neutrophils # (Manual) 14.80 H (1.3-7.7) k/uL Lymphocytes # (1.0-4.8) k/uL Lymphocytes # (Manual) 0.48 L (1.0-4.8) k/uL Chloride (98-107) mmol/L Carbon Dioxide (22-30) mmol/L BUN (9-20) mg/dL Glucose (74-99) mg/dL POC Glucose (mg/dL) 278 H 279 H (70-110) mg/dL Calcium (8.4-10.2) mg/dL ALT (4-49) U/L Alkaline Phosphatase (38-126) U/L Total Protein (6.3-8.2) g/dL Albumin (3.5-5.0) g/dL 06/04/23 06/05/23 06/05/23 Range/Units 19:49 05:46 08:43 WBC 11.7 H (3.8-10.6) k/uL Neutrophils # 10.2 H (1.3-7.7) k/uL Neutrophils # (Manual) (1.3-7.7) k/uL Lymphocytes # 0.9 L (1.0-4.8) k/uL Lymphocytes # (Manual) (1.0-4.8) k/uL Chloride (98-107) mmol/L Carbon Dioxide (22-30) mmol/L BUN (9-20) mg/dL Glucose (74-99) mg/dL POC Glucose (mg/dL) 270 H 232 H (70-110) mg/dL Calcium (8.4-10.2) mg/dL ALT (4-49) U/L Alkaline Phosphatase (38-126) U/L Total Protein (6.3-8.2) g/dL Albumin (3.5-5.0) g/dL 06/05/23 Range/Units 08:43 WBC (3.8-10.6) k/uL Neutrophils # (1.3-7.7) k/uL Neutrophils # (Manual) (1.3-7.7) k/uL Lymphocytes # (1.0-4.8) k/uL Lymphocytes # (Manual) (1.0-4.8) k/uL Chloride 109 H (98-107) mmol/L Carbon Dioxide 20 L (22-30) mmol/L BUN 32 H (9-20) mg/dL Glucose 215 H (74-99) mg/dL POC Glucose (mg/dL) (70-110) mg/dL Calcium 8.2 L (8.4-10.2) mg/dL ALT 62 H (4-49) U/L Alkaline Phosphatase 167 H (38-126) U/L Total Protein 5.5 L (6.3-8.2) g/dL Albumin 2.7 L (3.5-5.0) g/dL Microbiology - Last 24 Hours (Table) 06/02/23 13:53 Gram Stain - Preliminary Sputum Sputum Culture - Preliminary Pseudomonas spec Gram Neg Bacilli 06/02/23 01:50 Blood Culture - Preliminary Blood 06/02/23 01:35 Blood Culture - Preliminary Blood
[2023-06-06 06:01] LABS: Glucose,Whole Blood 126 mg/dL (70-110)
[2023-06-06 06:34] LABS: Basophils # (A) 0.1 k/uL (0-0.2); Basophils % (A) 0 %; Eosinophils % (A) 0 %; HCT 47.2 % (39.0-53.0); HGB 15.7 gm/dL (13.0-17.5); Lymphocytes # (A) 1.1 k/uL (1.0-4.8); Lymphocytes % (A) 10 %; MCH 31.1 pg (25.0-35.0); MCHC 33.3 g/dL (31.0-37.0); MCV 93.4 fL (80.0-100.0); Mean Platelet Volume 7.2; Monocytes # (A) 0.4 k/uL (0-1.0); Monocytes % (A) 4 %; Neutrophils # (A) 9.9 k/uL (1.3-7.7); Neutrophils % (A) 85 %; Platelet Count 292 k/uL (150-450); RBC 5.05 m/uL (4.30-5.90); RDW 13.2 % (11.5-15.5); WBC 11.6 k/uL (3.8-10.6)
[2023-06-06 06:48] LABS: ALT 65 U/L (4-49); AST 56 U/L (17-59); African American GFR (CKD) 84 (>60 ml/min/1.73 sqM); Albumin 2.7 g/dL (3.5-5.0); Alkaline Phosphatase 143 U/L (38-126); Anion Gap 5 mmol/L; Blood Urea Nitrogen 26 mg/dL (9-20); Calcium 7.9 mg/dL (8.4-10.2); Carbon Dioxide 29 mmol/L (22-30); Chloride 105 mmol/L (98-107); Glucose 118 mg/dL (74-99); Magnesium 2.1 mg/dL (1.6-2.3); Non-African American GFR(CKD) 72 (>60 ml/min/1.73 sqM); Potassium 3.3 mmol/L (3.5-5.1); Sodium 139 mmol/L (137-145); Total Bilirubin 0.9 mg/dL (0.2-1.3); Total Protein 5.2 g/dL (6.3-8.2)
[2023-06-06 12:02] LABS: Glucose,Whole Blood 137 mg/dL (70-110)
--- NOTE | 2023-06-06 12:15 | P.GSCN ---
History of Present Illness Consult date: 06/06/23 Reason for Consult: lytic instillation Requesting physician: Lavelle Scales History of present illness: This is a 77-year-old gentleman who follows outpatient with Dr. Kate for primary care. He has a previous medical history of coronary artery disease status post PCI 3, hypertension, hyperlipidemia, diabetes, COPD with chronic hypoxemic respiratory failure and 2 L nasal cannula at home and previous tobacco dependence. He was recently hospitalized for COPD exacerbation and discharged 05/25/2023. He presented back to [facility] emergency room 06/02/2023 with complaints of significant shortness of breath as well as productive cough. Chest x-ray as well as CT scan of the chest revealed right sided atelectasis along with lower lobe pneumonia versus loculated pleural effusion. The patient was also found to be in rapid atrial fibrillation. He was afebrile, however white blood cell count was 19.1, lactic acid 2.4, procalcitonin 1.48, covid/RSV/influenza PCRs were not detected. He was admitted with consultation placed to pulmonology and cardiology. He was started on IV antibiotics. Today the patient underwent placement of right pigtail catheter insertion by interventional radiology and cardiothoracic surgery was consulted for lytic instillation. Review of Systems Review of systems was completed and was negative except as noted - Respiratory Reports as per HPI, Reports congestion, Reports cough with sputum, Reports dyspnea, Reports home oxygen Past Medical History Past Medical History: Coronary Artery Disease (CAD), Chest Pain / Angina, COPD, Diabetes Mellitus, GERD/Reflux, GI Bleed, Hyperlipidemia, Hypertension, Myocardial Infarction (TN), Skin Disorder Additional Past Medical History / Comment(s): Hx of rectal bleeding, rectal fissure; gout, bronchitis, uses O2 @ 2L NC. +Covid 08/2020. Hx cysts on groin area. Last Myocardial Infarction Date:: approx 2005 History of Any Multi-Drug Resistant Organisms: None Reported Past Surgical History: Heart Catheterization With Stent Additional Past Surgical History / Comment(s): total 3 cardiac stents, surgery for cyst in rectal area, siddharth cataracts, uro lift, cysts removed from testicles, buttocks, and back, colonoscopy Past Anesthesia/Blood Transfusion Reactions: No Reported Reaction Date of Last Stent Placement:: 2005 Past Psychological History: No Psychological Hx Reported Additional Psychological History / Comment(s): . Smoking Status: Former smoker Past Alcohol Use History: Occasional Additional Past Alcohol Use History / Comment(s): Pt started smoking in 1956 and quit in 2017. Past Drug Use History: None Reported - Past Family History Father Family Medical History: Cancer Additional Family Medical History / Comment(s): lung cancer Mother Family Medical History: No Reported History Additional Family Medical History / Comment(s): Mother was healthy and lived to be in her 90s. Medications and Allergies Home Medications Medication Instructions Recorded Confirmed Type allopurinoL [Zyloprim] 100 mg PO DAILY 03/02/16 06/02/23 History Metoprolol Succinate [Toprol Xl] 50 mg PO DAILY 12/29/17 06/02/23 History Tamsulosin HCl [Flomax] 0.4 mg PO HS 12/29/17 06/02/23 History Rosuvastatin [Crestor] 20 mg PO DAILY 02/27/19 06/02/23 History Pantoprazole [Protonix] 40 mg PO DAILY 03/03/19 06/02/23 History Montelukast Sodium [Singulair] 10 mg PO HS 08/16/20 06/02/23 History Aspirin EC [Ecotrin Low Dose] 81 mg PO DAILY 10/10/20 06/02/23 History Ascorbic Acid [Vitamin C] 500 mg PO DAILY 10/19/21 06/02/23 History Cholecalciferol [Vitamin D3 (25 25 mcg PO DAILY 10/19/21 06/02/23 History Mcg = 1000 Iu)] Multivitamins, Thera [Multivitamin 1 tab PO DAILY 10/19/21 06/02/23 History (formulary)] metFORMIN HCL [Glucophage] 500 mg PO BID 10/19/21 06/02/23 History Albuterol Inhaler [Ventolin Hfa 2 puff INHALATION RT-Q6H PRN 03/19/22 06/02/23 History Inhaler] Ipratropium-Albuterol Nebulize 3 ml INHALATION RT-Q4H PRN 03/19/22 06/02/23 History [Duoneb 0.5 mg-3 mg/3 ml Soln] amLODIPine [Norvasc] 5 mg PO DAILY 03/19/22 06/02/23 History Empagliflozin [Jardiance] 25 mg PO DAILY 05/23/23 06/02/23 History Fluticasone/Umeclidin/Vilanter 1 puff INHALATION RT-DAILY 05/23/23 06/02/23 History [Trelegy Ellipta 200-62.5-25] predniSONE [Deltasone] 20 mg PO DIRECTED 05/23/23 06/02/23 History Acetaminophen Tab [Tylenol] 650 mg PO Q4HR PRN tab 05/25/23 06/02/23 Rx Furosemide [Lasix] 20 mg PO BID #60 tab 05/25/23 06/02/23 Rx Ipratropium-Albuterol Nebulize 3 ml INHALATION RT-QID #100 each 05/25/23 06/02/23 Rx [Duoneb 0.5 mg-3 mg/3 ml Soln] Potassium Chloride [K-Tab ER] 20 meq PO DAILY 30 Days #30 tab 05/25/23 06/02/23 Rx lisinopriL [Zestril] 10 mg PO DAILY 06/02/23 06/02/23 History predniSONE See Taper PO DIRECTED 06/02/23 06/02/23 History Allergies Allergy/AdvReac Type Severity Reaction Status Date / Time No Known Allergies Allergy Verified 06/02/23 11:53 Surgical - Exam Vital Signs Temp Pulse Resp BP Pulse Ox 97.3 F L 128 H 32 H 144/84 93 L 06/02/23 01:26 06/02/23 01:26 06/02/23 01:26 06/02/23 01:26 06/02/23 01:26 CONSTITUTIONAL: Awake and alert, appears mostly comfortable, cooperative, no pain, no acute distress EYES: Pupils equal, round, reactive to light, normal ocular movement ENT: Moist mucous membranes without oral lesions present NECK: No masses, no bruits, trachea midline RESPIRATORY: Lungs sounds coarse bilaterally, diminished in the right base. Respirations even, nonlabored. Currently on 2 L nasal cannula with oxygen saturation 94%. Strong productive cough. Pigtail catheter present to the right chest connected to atrium, 100 mL yellow fluid present, no air leak present CARDIOVASCULAR: S1, S2 present. Regular rate and rhythm, sinus rhythm on telemetry. Palpable peripheral pulses bilaterally. Trace bilateral lower extremity edema present. No calf pain or tenderness noted GASTROINTESTINAL: Abdomen soft, nontender, nondistended without masses or organomegaly noted. There is no rebound or guarding present. Active bowel sounds present 4 quadrants. GENITOURINARY: Deferred INTEGUMENTARY: Skin is warm and dry NEUROLOGIC: Cranial nerves II through XII intact, normal coordination, no obvious motor or sensory deficits, speech is normal MUSKULOSKELETAL: Able to move all extremities, strength equal bilaterally, normal posture PSYCHIATRIC: Alert and oriented to person place and time, appropriate affect, intact judgment and insight Results - Labs 06/11/23 07:26 06/11/23 07:26 Abnormal Lab Results - Last 24 Hours (Table) 06/05/23 06/05/23 06/06/23 Range/Units 16:50 20:02 05:58 WBC (3.8-10.6) k/uL Neutrophils # (1.3-7.7) k/uL Potassium (3.5-5.1) mmol/L BUN (9-20) mg/dL Glucose (74-99) mg/dL POC Glucose (mg/dL) 167 H 186 H 126 H (70-110) mg/dL Calcium (8.4-10.2) mg/dL ALT (4-49) U/L Alkaline Phosphatase (38-126) U/L Total Protein (6.3-8.2) g/dL Albumin (3.5-5.0) g/dL 06/06/23 06/06/23 Range/Units 06:22 06:22 WBC 11.6 H (3.8-10.6) k/uL Neutrophils # 9.9 H (1.3-7.7) k/uL Potassium 3.3 L (3.5-5.1) mmol/L BUN 26 H (9-20) mg/dL Glucose 118 H (74-99) mg/dL POC Glucose (mg/dL) (70-110) mg/dL Calcium 7.9 L (8.4-10.2) mg/dL ALT 65 H (4-49) U/L Alkaline Phosphatase 143 H (38-126) U/L Total Protein 5.2 L (6.3-8.2) g/dL Albumin 2.7 L (3.5-5.0) g/dL Microbiology - Last 24 Hours (Table) 06/02/23 13:53 Gram Stain - Final Sputum Sputum Culture - Final Pseudomonas aeruginosa Serratia marcescens Corynebacterium striatum 06/02/23 01:50 Blood Culture - Preliminary Blood 06/02/23 01:35 Blood Culture - Preliminary Blood Diabetes panel 06/06/23 Range/Units 06:22 Sodium 139 (137-145) mmol/L Potassium 3.3 L (3.5-5.1) mmol/L Chloride 105 (98-107) mmol/L Carbon Dioxide 29 (22-30) mmol/L BUN 26 H (9-20) mg/dL Creatinine 1.00 (0.66-1.25) mg/dL Glucose 118 H (74-99) mg/dL Calcium 7.9 L (8.4-10.2) mg/dL AST 56 (17-59) U/L ALT 65 H (4-49) U/L Alkaline Phosphatase 143 H (38-126) U/L Total Protein 5.2 L (6.3-8.2) g/dL Albumin 2.7 L (3.5-5.0) g/dL Calcium panel 06/06/23 Range/Units 06:22 Calcium 7.9 L (8.4-10.2) mg/dL Albumin 2.7 L (3.5-5.0) g/dL Pituitary panel 06/06/23 Range/Units 06:22 Sodium 139 (137-145) mmol/L Potassium 3.3 L (3.5-5.1) mmol/L Chloride 105 (98-107) mmol/L Carbon Dioxide 29 (22-30) mmol/L BUN 26 H (9-20) mg/dL Creatinine 1.00 (0.66-1.25) mg/dL Glucose 118 H (74-99) mg/dL Calcium 7.9 L (8.4-10.2) mg/dL Adrenal panel 06/06/23 Range/Units 06:22 Sodium 139 (137-145) mmol/L Potassium 3.3 L (3.5-5.1) mmol/L Chloride 105 (98-107) mmol/L Carbon Dioxide 29 (22-30) mmol/L BUN 26 H (9-20) mg/dL Creatinine 1.00 (0.66-1.25) mg/dL Glucose 118 H (74-99) mg/dL Calcium 7.9 L (8.4-10.2) mg/dL Total Bilirubin 0.9 (0.2-1.3) mg/dL AST 56 (17-59) U/L ALT 65 H (4-49) U/L Alkaline Phosphatase 143 H (38-126) U/L Total Protein 5.2 L (6.3-8.2) g/dL Albumin 2.7 L (3.5-5.0) g/dL - Imaging Chest x-ray: report reviewed, image reviewed CT scan - chest: report reviewed, image reviewed Assessment and Plan Assessment: Right-sided loculated parapneumonic effusion Shortness of breath secondary to above New-onset paroxysmal atrial fibrillation, currently sinus Acute on chronic hypoxemic respiratory failure Leukocytosis, lactic acidosis present on admission History of coronary artery disease status post PCI 3 Hypertension Hyperlipidemia Diabetes COPD Previous tobacco dependence Plan: The patient was seen and examined lying in bed on the cardiac stepdown unit in no acute distress. Remains on 4 L nasal cannula, does appear a bit short of breath, he is coughing up thick sputum. Chart/diagnostics reviewed. The case was discussed with Dr. Scales, will be discussed with Dr. Cardenas. Will instill alteplase/dornase into pigtail catheter, allowed to dwell for 1-2 hours before unclamping to drain. Likely will instill lytics daily for 5 days as long as drainage remains present. Wean O2 as tolerated. Antibiotics per internal medicine/pulmonology. A. fib management per cardiology. Medical management of other comorbidities per internal medicine. Thank you Dr. Scales for this consult, we will continue to follow along with you and make further recommendations as appropriate. I have personally seen and examined the patient, performed the documentation and the assessment and plan as written. Number of minutes spent on the visit: 30. SUGAR Brown Attending Addendum: Pt seen and evaluated with TANK FARM ATTENDANT above. Agree with her assessment and plan. This is a 77 year-old M with R sided empyema. Will start with conservative management with tPA/DNAse via pigtail and try to avoid surgery. I spent 35 minutes reviewing the data and discussing the plan of care with the patient and the care team. Time with Patient: Greater than 30
--- NOTE | 2023-06-06 12:17 | P.PN ---
Subjective Progress Note Date: 06/06/23 On 06/04/2023, I am seeing the patient in follow-up regarding shortness of breath. The patient was found to be in atrial fibrillation with rapid ventricular response and the patient also was found to be in heart failure with a right-sided pleural effusion. The patient continued to have increased lower e xtremity edema. The patient was seen by cardiology. The patient was switched to oral amiodarone and beta-blockers. Echocardiogram was also done on 06/02/2023 and echo showed a left ventricular ejection fraction of 40 to 45%. RV was not adequately visualized. There was a technically difficult study to evaluate. CT of the chest that was done at time of admission showed right mid lower lobe comp ressive atelectasis. Significant increase in the size of the right-sided pleural effusion compared to the earlier study that was done on 05/23/2023. No evidence of any pulm embolism. There was some mild to moderate emphysematous changes in the background. Ultrasound of the chest was also done on 06/03/2023 and the patient was found to have a complex right-sided pleural effusion measuring 4.3 cm in size. The patient's white cell count at 17.5. Hemoglobin is at 14.3. Viral screen has been negative. Troponins are negative. proBNP level is 477. Procalcitonin level is at 1.48. I reviewed the CAT scan of the chest and it is very much likely that the Is loculated right-sided effusion. There is an obvious worsening in the right-sided pleural effusion over this past few weeks as the CAT scan of the chest that was done on 05/23/2023 showed very small pleural effusion. Note that the patient is known to have COPD with chronic hypoxic respiratory failure on 2 L of oxygen by nasal cannula. Other comorbid conditions include CAD with previous coronary stenting, previous history of COVID-19 infections, hypertension, hyperlipidemia, diabetes mellitus type 2, hyperuricemia/gout, antral gastritis and previous history of lower GI bleed secondary to hemorrhoids. The patient himself is still having pain along the right side of the chest. Suspend the night on a BiPAP and currently is on 4 L of oxygen by nasal cannula. Slightly improved compared to yesterday.The white cell cause of 60 with a hemoglobin of 15.3, BUN is at 46 with a creatinine of 1.2 and a sodium level is at 140 the white cell count is slightly improved compared to yesterday. Pro-calcitonin level is at 1.48. On today's evaluation of 06/05/2023, patient is being seen for a follow-up. The patient was supposed to have a thoracentesis. This was canceled and the patient went into atrial fibrillation with rapid ventricular response. The patient is currently being seen by cardiology regarding the nature. He is still tachycardic. He remains on amiodarone 4 mg by mouth twice a day and he was also placed on metoprolol 50 mg twice a day and is also taking Cardizem drip at 5 mg an hour. We will hold anticoagulation in anticipation for thoracentesis within next 24 hours. A repeat chest x-ray was ordered to evaluate progression of the right-sided pleural effusion which is essentially considered to be a parapne umonic pleural effusion which is loculated. The sputum is also positive for Pseudomonas and Serratia. The patient is currently on IV Zosyn which is adequate for those microorganisms. The patient remains on bronchodilators. The patient is also on Lasix 40 mg IV every 12 hours. His oxygen requirements at 4 L and the patient's pulse ox in the order of 93% his echocardiogram showed a mild impairment of LV function with an ejection fraction of 40-45%. RV and the right-sided pressures were essentially within normal limits to no significant valvular abnormalities. On today's evaluation of 06/06/2023, the patient is being seen for a follow-up. As mentioned, the patient a loculated complex right-sided parapneumonic pleural effusion. The patient is currently on IV Zosyn. Sputum culture was positive for Pseudomonas and Serratia. Meanwhile, the patient will be taken to interventional radiology Department where he is going to have a pigtail catheter insertion. We'll analyze pleural fluid also for chemistry and cytology and cultures. Meanwhile, the patient remains on 4 L of oxygen by nasal cannula. The patient remains on Zosyn. Labs from today shows a WBC of 11.6, hemoglobin 15.7, platelet count is 292. BUN is at 26 with a creatinine of 1.0. Meanwhile, the patient is still being treated for H of fibrillation. The patient is currently on amiodarone 4 mg by mouth twice a day. No anticoagulation was given as the patient is going to have a pigtail catheter insertion today. The patient is also metoprolol 50 mg twice a day. The patient's heart rate is under much better control. The patient is afebrile. Pulse ox 94% on [address] by nasal cannula. Echocardiogram shows an ejection fraction of 40-45% and normal pulmonary artery pressures. Objective - Vital Signs Vital signs: Vital Signs Temp 97.8 F 06/06/23 08:00 Pulse 96 06/06/23 08:47 Resp 18 06/06/23 08:00 BP 129/74 06/06/23 08:00 Pulse Ox 92 L 06/06/23 08:31 FiO2 60 06/05/23 05:07 Intake & Output 06/05/23 06/06/23 06/06/23 18:59 06:59 18:59 Intake Total 986.5 360 Output Total 800 1350 1000 Balance 186.5 -1350 -640 Weight 110.2 kg Intake: Intake, IV Titration 88.5 Amount Diltiazem 125 mg In 88.5 Sodium Chloride 0.9% 100 ml @ 5 MG/HR 5 mls/hr IV .Q24H [facility] Rx#:[id number] Oral 898 360 Output: Urine 800 1350 1000 Other: Voiding Method External Catheter External Catheter - Exam No acute distress, oriented 3. Currently off BiPAP and he is on 02 at 4 liters HEENT examination is grossly unremarkable. Neck supple. Full range of motion. No adenopathy thyromegaly or neck vein distention. Cardiovascular examination reveals an irregular rhythm and rate. S1-S2 normal. No S3 or S4. No discernible murmur noted. Lungs reveal mild scattered rhonchi. No wheezes. No crackles. There is obvious diminished in the breath sounds on the right lung base along with dullness to percussion Abdomen soft bowel sounds are heard. No masses or tenderness. Extremities are intact. No cyanosis or clubbing. 1+ edema is present. Skin is without rash or lesion. Neurologic examination is brief but nonfocal. - Labs CBC & Chem 7: 06/06/23 06:22 06/06/23 06:22 Labs: Abnormal Lab Results - Last 24 Hours (Table) 06/05/23 06/05/23 06/05/23 Range/Units 11:41 16:50 20:02 WBC (3.8-10.6) k/uL Neutrophils # (1.3-7.7) k/uL Potassium (3.5-5.1) mmol/L BUN (9-20) mg/dL Glucose (74-99) mg/dL POC Glucose (mg/dL) 210 H 167 H 186 H (70-110) mg/dL Calcium (8.4-10.2) mg/dL ALT (4-49) U/L Alkaline Phosphatase (38-126) U/L Total Protein (6.3-8.2) g/dL Albumin (3.5-5.0) g/dL 06/06/23 06/06/23 06/06/23 Range/Units 05:58 06:22 06:22 WBC 11.6 H (3.8-10.6) k/uL Neutrophils # 9.9 H (1.3-7.7) k/uL Potassium 3.3 L (3.5-5.1) mmol/L BUN 26 H (9-20) mg/dL Glucose 118 H (74-99) mg/dL POC Glucose (mg/dL) 126 H (70-110) mg/dL Calcium 7.9 L (8.4-10.2) mg/dL ALT 65 H (4-49) U/L Alkaline Phosphatase 143 H (38-126) U/L Total Protein 5.2 L (6.3-8.2) g/dL Albumin 2.7 L (3.5-5.0) g/dL Microbiology - Last 24 Hours (Table) 06/02/23 13:53 Gram Stain - Final Sputum Sputum Culture - Final Pseudomonas aeruginosa Serratia marcescens Corynebacterium striatum 06/02/23 01:50 Blood Culture - Preliminary Blood 06/02/23 01:35 Blood Culture - Preliminary Blood Assessment and Plan Plan: Assessment Complex right-sided loculated pleural effusion, likely parapneumonic in the patient's shortness of breath and the pleural effusion has progressed since the initial CAT scan of the chest was done on 05/23/2023. The fluid itself is loculated. This is most likely a parapneumonic effusion that is locating itself. This fluid is not abnormal to thoracentesis. We'll discuss the findings with interventional radiology and decide if we can drain this with ultrasound guidance versus is having a pigtail catheter. The procedure was supposed to be done yesterday and the patient went into atrial fibrillation with RVR. A pigtail catheter insertion will be done today and this may need to be followed up by thrombotic administration to evacuate the right-sided pleural effusion. We'll also let the pleural fluid for cultures and cytology. Right lower lobe pneumonia with sputum showing Pseudomonas and Serratia, susceptible to Zosyn Shortness of breath, likely secondary to above, currently off the BiPAP and the patient is currently on 4 L of oxygen by nasal cannula Acute on chronic hypoxic respiratory failure currently on 4 L, typically on 2 L at home A-fib/RVR , rate controlled and the patient is currently on oral amiodarone and metoprolol. No anticoagulants yet. 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 The patient is currently on amiodarone 400 mg twice a day, metoprolol 50 mg by mouth twice a day Continue bronchodilators Titrate oxygen flow to maintain saturation above 90% Will continue to follow
[2023-06-06] MEDS: BUMETANIDE 1 MG TAB PO SCH (12:25)
[2023-06-06] MEDS: ALTEPLASE 10 MG in SODIUM CHLORIDE 0.9% 50 ML IRRIGATION ONE (12:27)
[2023-06-06] MEDS: DORNASE ALFA 5 MG in SODIUM CHLORIDE 0.9% 50 ML IRRIGATION ONE (12:27)
--- NOTE | 2023-06-06 14:13 | P.PN ---
Subjective Progress Note Date: 06/06/23 Principal diagnosis: Shortness of breath The patient is a 77-year-old [id number] gentleman who was admitted to the hospital with shortness of breath and he was found to be in atrial fibrillation with RVR. He was not on anticoagulation because of history of bleeding. He was in heart failure and the chest x-ray showed right pleural effusion was moderate. He was seen and evaluated this morning. He continues to be hypoxic VT continues to have severe bilateral lower extremity edema. The pressure has marginal. He isn't on amiodarone as this point IV which I'm going to switch him to amiodarone orally and continue the beta mac which was started yesterday. The echo still pending. 06/04 patient is seen today in follow-up. Telemetry is atrial fibrillation with RVR and 120 bpm. Repeat chest x-ray reveals moderate right pleural effusion. Echocardiogram reveals EF 40-45%, technically difficult study. Patient states that he is feeling better now than he did last week. 06/05 Patient remains in A. fib with RVR and during the night was started on Cardizem drip currently at 5 mg per hour and this was following a bolus of 10 mg. Patient is currently on amiodarone 400 mg twice daily. Patient has Eloy wrap so were added to the lower extremities. Hemoglobin and platelet count are stable. Discussed with patient option of resuming anticoagulation although he has been off it for some time due to bruising and bleeding. Dr. Scales is planning for possible for him to disease ceases by tomorrow either by himself or IR. We will hold on starting eliquis until this is completed. Yesterday, patient was started on Entresto and Aldactone. 06/06 Patient converted to sinus rhythm about 5 PM yesterday. He however remains on Cardizem drip which will be discontinued. Patient states that he is feeling better and breathing is better. Patient did undergo right pigtail catheter this morning interventional radiology. Cardiothoracic surgery was added for lytic instillation. Plan was to start patient on Eliquis today which we will place on hold for now. Patient has been maintained on IV Lasix 40 mg every 12 hours. The examination is remarkable for diminished breathing sounds bilaterally and 1+ bilateral lower extremity edema Assessment Atrial fibrillation with RVR Heart failure of unknown etiology at this point Evidence of right and left heart failure Right pleural effusion status post right-sided pigtail catheter Multiple comorbid conditions Plan Transition IV Lasix to oral Bumex 1 mg daily Monitor I&O, daily weights, electrolytes and renal function Continue Entresto 2426 milligrams twice daily and Aldactone 12.5 mg daily Discontinue Cardizem drip Continue Lopressor to 50 mg twice daily Patient will be started on eliquis at a later time following lytic installation. Nurse practitioner note has been reviewed, I agree with the documented findings and plan of care. Patient was seen and examined. Objective - Vital Signs Vital signs: Vital Signs Temp 98 F 06/06/23 12:00 Pulse 71 06/06/23 12:00 Resp 18 06/06/23 12:00 BP 106/65 06/06/23 12:00 Pulse Ox 94 L 06/06/23 12:00 FiO2 60 06/05/23 05:07 Intake & Output 06/05/23 06/06/23 06/06/23 18:59 06:59 18:59 Intake Total 986.5 360 Output Total 800 1350 1098 Balance 186.5 -1350 -738 Weight 110.2 kg Intake: Intake, IV Titration 88.5 Amount Diltiazem 125 mg In 88.5 Sodium Chloride 0.9% 100 ml @ 5 MG/HR 5 mls/hr IV .Q24H [facility] Rx#:[id number] Oral 898 360 Output: Chest Tube Drainage 98 Pleural Catheter Right 98 Upper Posterior Chest Urine 800 1350 1000 Other: Voiding Method External Catheter External Catheter External Catheter - Labs CBC & Chem 7: 06/06/23 06:22 06/06/23 06:22 Labs: Abnormal Lab Results - Last 24 Hours (Table) 06/05/23 06/05/23 06/06/23 Range/Units 16:50 20:02 05:58 WBC (3.8-10.6) k/uL Neutrophils # (1.3-7.7) k/uL Potassium (3.5-5.1) mmol/L BUN (9-20) mg/dL Glucose (74-99) mg/dL POC Glucose (mg/dL) 167 H 186 H 126 H (70-110) mg/dL Calcium (8.4-10.2) mg/dL ALT (4-49) U/L Alkaline Phosphatase (38-126) U/L Total Protein (6.3-8.2) g/dL Albumin (3.5-5.0) g/dL 06/06/23 06/06/23 06/06/23 Range/Units 06:22 06:22 11:59 WBC 11.6 H (3.8-10.6) k/uL Neutrophils # 9.9 H (1.3-7.7) k/uL Potassium 3.3 L (3.5-5.1) mmol/L BUN 26 H (9-20) mg/dL Glucose 118 H (74-99) mg/dL POC Glucose (mg/dL) 137 H (70-110) mg/dL Calcium 7.9 L (8.4-10.2) mg/dL ALT 65 H (4-49) U/L Alkaline Phosphatase 143 H (38-126) U/L Total Protein 5.2 L (6.3-8.2) g/dL Albumin 2.7 L (3.5-5.0) g/dL Microbiology - Last 24 Hours (Table) 06/02/23 13:53 Gram Stain - Final Sputum Sputum Culture - Final Pseudomonas aeruginosa Serratia marcescens Corynebacterium striatum 06/02/23 01:50 Blood Culture - Preliminary Blood 06/02/23 01:35 Blood Culture - Preliminary Blood
--- NOTE | 2023-06-06 14:32 | CT ---
EXAMINATION TYPE: CT chest tube insertion DATE OF EXAM: 06/06/2023 COMPARISON: Chest x-ray 06/05/2023 HISTORY: right sided chest tube insertion CT DLP: 1127 mGycm The procedure is discussed with the patient, the risks, complications, benefits and alternatives, wer e discussed and any questions were answered. Informed consent was obtained. The patient is placed p ramsey on the CT table, prepped and draped in the usual sterile fashion. Utilizing a 20 needle access into right pleural space was achieved with placement of a 1.018 wire. Th ere is a bifid system and placement of 0.35 a guidewire into the right pleural space. Serial dilation a Chadian and placement of 8 Chadian drainage catheter. Sample obtained and sent to pathology. Patholo gy pending. All elements of maximal barrier and sterile technique were utilized. The patient remain ed stable throughout the procedure with no immediate postprocedural complication. IMPRESSION: 1. Successful CT guided right pigtail chest tube insertion.
[2023-06-06 16:52] LABS: Glucose,Whole Blood 163 mg/dL (70-110)
[2023-06-06 20:09] LABS: Glucose,Whole Blood 156 mg/dL (70-110)
[2023-06-06 20:57] LABS: T. Protein, Body Fluid Source Pleural Fluid; Total Protein, Body Fluid >3600 mg/dL
[2023-06-06 21:19] LABS: Glucose, BF Source Pleural Fluid; Glucose, Body Fluid <2 mg/dL
[2023-06-06 22:50] LABS: Appearance,BF Turbid (Clear)
[2023-06-07 06:13] LABS: Glucose,Whole Blood 114 mg/dL (70-110)
--- NOTE | 2023-06-07 07:07 | P.PN ---
Subjective Progress Note Date: 06/06/23 This is a pleasant 77 years old male with multiple medical problems including COPD and Violetta asif. 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 Patient says that his breathing was improved after discharge but then started getting gradually worse over the last week or so. Associated with right lower quadrant of chest pain about 10/10 on admission, increase by breathing, for a few days, associated with yellow brown coughing and phlegm His legs are significantly swollen Currently he is on BiPAP 12/5 and FiO2 of 60% Patient denies change in urine or bowel habits. He feels little dizzy but no headache weakness or numbness. He denies smoking or illicit drugs, he drinks alcohol occasionally. Labs and vitals reviewed Currently he is mildly tachypneic and tachycardic with heart rate around 140 He has leukocytosis of 19.1. Creatinine elevated 1.47 compared to baseline of 1.1-0.9. Sodium 136, liver enzymes might be elevated. Temperature 97.3 and INR is unremarkable. This is Influenza A and type B, RSV, SARS (coronavirus) are and detected proBNP 477, t roponin is negative less than 0.03. Troponin is -0.03 ProBNP is 4677 CTA of the chest is negative for pulmonary embolism with right lower lobe atelectasis versus pneumonia with a right pleural effusion 4.5 cm with emphysematous changes 06/03/2023 Patient looks more relaxed more awake His breathing is better His on BiPAP with setting of 12/5 and FiO2 60% Had some minimal discomfort on the right side of the abdomen, KUB is negative patient states he has normal bowel movement we wanted to rule out ileus. Discussed patient is unusual for him Also patient was found to have loculated right pleural effusion secondary to pneumonia and is currently on Zosyn. Physical dictated also by Violetta asif and tachycardia and currently placed on amiodarone and aspirin 81 mg by manipulative therapy specialist 06/04/2023 Patient breathing is improving slowly and gradually Patient STILL uncontrolled and cardiology following closely, he is currently on IV Lasix twice daily as well as beta mac and amiodarone 400 mg twice daily. Aldactone 12.5 and an entresto was added today by manipulative therapy specialist Abdomen that is improving breathing, history using the BiPAP on and off. His tachycardic with a rate 137 this morning Leukocytosis improving down to 16k, , creatinine stable at 1.2 on his sputum culture is growing Pseudomonas and gram-negative bacilli Patient currently covered with Zithromax and Zosyn Consult interventional radiology for possible aspiration of a limited right pleural effusion, otherwise may consider pigtail placement He remains on IV Lasix 40 mg twice daily. Keep monitoring creatinine 06/05/2023 Patient is seen in follow-up today with cardiology and pulmonary following. Interventional radiology consulted with concerns of right pleural effusion with possible loculation and was scheduled the have possible aspiration or pigtail catheter although patient had increased heart rate in the 150s and in atrial fi brillation with RVR. Patient was placed back on Cardizem with cardiology making adjustments to medications. Patient is afebrile and denies worsening shortness of breath although continues to have shortness of breath and maintained on 4 L via nasal cannula. Patient has not required BiPAP. Patient is extremely weak and encouraged increased activity as tolerated and sitting up in the chair more often. Elevate lower extremities and continue with Eloy wraps from the toes up to the knees. Patient was continued on IV Lasix twice daily although clinically appears dry and will hold Lasix for now and follow up on repeat labs. Interventional radiology to reevaluate once heart rate is better controlled. 06/06/2023 Patient is seen in follow-up this morning scheduled to undergo right chest wall catheter placement for continued pleural effusion that appears loculated. Pulmonary along with cardiology following and heart rate is better controlled currently off Cardizem and will continue on telemetry monitoring. Patient continues on 4 L nasal cannula continues with shortness of breath and coughing. Patient is extremely weak recommend physical therapy daily. CT surgery being consulted for possible TPA administration in the catheter. Review of systems CONSTITUTIONAL: No fever, no malaise, no fatigue. HEENT: No recent visual problems or hearing problems. Denied any sore throat. CARDIOVASCULAR: No orthopnea, PND, no palpitations, no syncope. GASTROINTESTINAL: No diarrhea, no nausea, no vomiting, no abdominal pain. Normoactive bowel sounds. NEUROLOGICAL: No headaches, reports of generalized weakness, no numbness. Physical exam: GENERAL: The patient is alert and oriented x3, not in any acute distress. Well developed, well nourished. Obese. HEENT: Pupils are round and equally reacting to light. EOMI. No scleral icterus. No conjunctival pallor. Normocephalic, atraumatic. No pharyngeal erythema. No thyromegaly. CARDIOVASCULAR: S1 and S2 present. No murmurs, rubs, or gallops. PULMONARY: Diminished breath sounds bilaterally, no wheezing , no crackles. Decreased breath sounds on the right ABDOMEN: Soft, obese, nontender, nondistended, normoactive bowel sounds. No pa lpable organomegaly. MUSCULOSKELETAL: No joint swelling or deformity. EXTREMITIES: No cyanosis, clubbing, or pedal edema. Patient has some mild bilateral lower extremity edema noted, nonpitting and Eloy wraps have been applied NEUROLOGICAL: Gross neurological examination did not reveal any focal deficits. Diffusely weak SKIN: No rashes. no petechiae. Assessment: Right lower lobe pneumonia associated with right pleural effusion 4.5 cm, it appears to be a loculated effusion, status post pigtail catheter placement on 06/06/2023 A. fib with RVR, present on admission, currently rate controlled and off Cardizem Acute kidney injury improving, possible elements of chronic kidney disease stage III Acute COPD exacerbation, improving Acute on chronic hypoxic respiratory failure, currently on 4 L and normally wears 2 L outpatient Obesity with BMI of 32.1. History of BPH Hypertension GI prophylaxis DVT prophylaxis Full code Plan: Patient is continued on IV Zosyn as sputum culture showed Pseudomonas with serratia and Corynebacterium striatum Pulmonary along with cardiology following and interventional radiology following and has placed Pleurx catheter today for continued right pleural effusion that appears loculated CT surgery consulted for administration of TPA in the chest tube Cardiology following and patient is off Cardizem and currently rate controlled with medication adjustments. Will follow-up on repeat labs PT/OT therapy consulted and pending. Patient will need ECF on discharge is patient is significantly weak and has had prolonged hospitalization Patient continues with lower extremity swelling and have encouraged Eloy wraps to bilateral lower extremities. Per nursing staff patient keeps taking them off. Discussed with the patient the importance of minimizing the swelling and elevating extremities well are rest. Wean FiO2 as tolerated. Patient currently on 4 L and has not required BiPAP The impression and plan of care has been dictated by Namita Chavarria, Nurse Practitioner as directed. Dr. Brianna MD I have performed a history and examination and MDM of this patient, discussed the same with the dictator, and agree with the dictator's assessment and plan as written ,documented as a scribe. Based on total visit time, I have performed more than 50% of the visit. Objective - Vital Signs Vital signs: Vital Signs Temp 98.5 F 06/07/23 04:00 Pulse 66 06/07/23 04:00 Resp 20 06/07/23 04:00 BP 109/72 06/07/23 04:00 Pulse Ox 95 06/07/23 04:00 FiO2 60 06/05/23 05:07 Intake & Output 06/06/23 06/07/23 06/07/23 18:59 06:59 18:59 Intake Total 478 Output Total 2288 510 Balance -1810 -510 Weight 107.7 kg Intake: Oral 478 Output: Chest Tube Drainage 888 510 Pleural Catheter Right 888 510 Upper Posterior Chest Urine 1400 Other: Voiding Method External Catheter External Catheter - Labs CBC & Chem 7: 06/06/23 06:22 06/06/23 06:22 Labs: Abnormal Lab Results - Last 24 Hours (Table) 06/06/23 06/06/23 06/06/23 Range/Units 11:00 11:59 16:39 POC Glucose (mg/dL) 137 H 163 H (70-110) mg/dL Fluid Appearance Turbid A (Clear) 06/06/23 06/07/23 Range/Units 20:08 06:12 POC Glucose (mg/dL) 156 H 114 H (70-110) mg/dL Fluid Appearance (Clear) Microbiology - Last 24 Hours (Table) 06/06/23 11:00 Gram Stain - Preliminary Pleural Fluid
[2023-06-07 08:11] LABS: Basophils # (A) 0.1 k/uL (0-0.2); Basophils % (A) 1 %; Eosinophils % (A) 1 %; HCT 46.9 % (39.0-53.0); HGB 15.9 gm/dL (13.0-17.5); Lymphocytes # (A) 1.2 k/uL (1.0-4.8); Lymphocytes % (A) 15 %; MCHC 33.8 g/dL (31.0-37.0); MCV 94.5 fL (80.0-100.0); Mean Platelet Volume 7.9; Monocytes # (A) 0.4 k/uL (0-1.0); Monocytes % (A) 5 %; Neutrophils # (A) 6.2 k/uL (1.3-7.7); Neutrophils % (A) 77 %; Platelet Count 257 k/uL (150-450); RBC 4.97 m/uL (4.30-5.90); RDW 13.3 % (11.5-15.5)
[2023-06-07 08:26] LABS: African American GFR (CKD) 89 (>60 ml/min/1.73 sqM); Anion Gap 10 mmol/L; Blood Urea Nitrogen 21 mg/dL (9-20); Calcium 8.2 mg/dL (8.4-10.2); Carbon Dioxide 22 mmol/L (22-30); Chloride 105 mmol/L (98-107); Glucose 111 mg/dL (74-99); Magnesium 2.1 mg/dL (1.6-2.3); Non-African American GFR(CKD) 77 (>60 ml/min/1.73 sqM); Potassium 3.6 mmol/L (3.5-5.1); Sodium 137 mmol/L (137-145)
--- NOTE | 2023-06-07 08:40 | XR ---
EXAMINATION TYPE: XR chest 1V DATE OF EXAM: 06/07/2023 COMPARISON: 06/05/2023 HISTORY: Pleural effusion TECHNIQUE: Single frontal view of the chest is obtained. FINDINGS: Interval reduction in amount of pleural fluid on the right. No sizable pneumothorax. Persi stent bilateral consolidation and evidence of COPD. Heart size normal. No overt failure. Diffuse oste openia and degenerative change of the spine. There is a catheter seen within the right pleural space. IMPRESSION: 1. Significant interval reduction in amount of pleural fluid on the right
--- NOTE | 2023-06-07 09:47 | P.PN ---
Subjective Progress Note Date: 06/07/23 Principal diagnosis: Right-sided empyema, shortness of breath on admission. Past medical history significant for coronary artery disease status post PCI 3, hypertension, hyperlipidemia, diabetes, COPD with chronic hypoxemic respiratory failure and 2 L nasal cannula at home and previous tobacco dependence, recently hospitalized for COPD exacerbation and discharged 05/25/2023. Status post day #[address] guided right pigtail chest tube insertion by interventional radiology The patient was seen and examined in follow-up today 06/07/2023 at his bedside on the third floor cardiac stepdown unit. He is currently sitting up in bed, is awake, alert, oriented 3 and is in no acute distress. Denies any complaints of pain at this time and reports his shortness of breath is much improved since his admission. Complaining of productive cough with yellow tenacious sputum. He underwent a placement of a right pigtail catheter by interventional radiology yesterday 06/06/2023. He had 1 dose of alteplase/dornase per the right pigtail catheter yesterday, the pigtail catheter remains to low continuous wall suction -20 cm H2O. Draining thick purulent drainage with 200 mL output in the last 8 hours and 1.4 L output in the last 24 hours. Oxygen saturations are 95% on 4 L nasal cannula. Remote telemetry showing normal sinus rhythm with occasional PACs heart rate 81 BPM. The patient has been afebrile the last 24 hours. Sputum culture showed pseudomonas aeruginosa, Serratia marcescens and Coreybacterium striatum, he is currently on Zosyn for IV antibiotic coverage. Laboratory and chest x-ray results reviewed. Objective - Vital Signs Vital signs: Vital Signs Temp 98 F 06/07/23 08:00 Pulse 87 06/07/23 08:30 Resp 20 06/07/23 08:00 BP 122/74 06/07/23 08:00 Pulse Ox 97 06/07/23 08:13 FiO2 60 06/05/23 05:07 Intake & Output 06/06/23 06/07/23 06/07/23 18:59 06:59 18:59 Intake Total 478 140 Output Total 2288 510 120 Balance -1810 -510 20 Weight 107.7 kg Intake: Oral 478 140 Output: Chest Tube Drainage 888 510 120 Pleural Catheter Right 888 510 120 Upper Posterior Chest Urine 1400 Other: Voiding Method External Catheter External Catheter External Catheter - Exam CONSTITUTIONAL: Appears comfortable, cooperative, no acute distress RESPIRATORY: Lungs sounds diminished bilaterally, faint expiratory wheezes. Respirations are symmetrical and nonlabored. Currently on 4 L nasal cannula with oxygen saturation 95%. Strong cough with yellow tenacious sputum. CARDIOVASCULAR: S1, S2 present. Regular rate and rhythm, sinus rhythm with occasional PACs on telemetry, heart rate 81 bpm. Palpable peripheral pulses bilaterally. +2 to +3 edema to his bilateral lower extremities. No calf pain or tenderness noted. GASTROINTESTINAL: Abdomen soft, nontender, nondistended. Active bowel sounds present 4 quadrants. Tolerating diet. Positive bowel movement. GENITOURINARY: Incontinent of urine. INTEGUMENTARY: Skin is warm and dry, no clubbing or cyanosis is present. NEUROLOGIC: Cranial nerves II through XII intact, no focal deficits. MUSKULOSKELETAL: Able to move all extremities, strength equal bilaterally, generalized weakness. PSYCHIATRIC: Alert and oriented to person place and time, appropriate affect, intact judgment and insight. INVASIVE LINES AND TUBES: Right pleural pigtail catheter present and connected to wall suction, no air leak present. Right pleural pigtail catheter with 200 mL thick purulent drainage overnight, 1.4 L drainage in the last 24 hours. - Allied health notes Allied health notes reviewed: nursing - Labs CBC & Chem 7: 06/07/23 07:32 06/07/23 07:41 Labs: Abnormal Lab Results - Last 24 Hours (Table) 06/06/23 06/06/23 06/06/23 Range/Units 11:00 11:59 16:39 BUN (9-20) mg/dL Glucose (74-99) mg/dL POC Glucose (mg/dL) 137 H 163 H (70-110) mg/dL Calcium (8.4-10.2) mg/dL Fluid Appearance Turbid A (Clear) 06/06/23 06/07/23 06/07/23 Range/Units 20:08 06:12 07:41 BUN 21 H (9-20) mg/dL Glucose 111 H (74-99) mg/dL POC Glucose (mg/dL) 156 H 114 H (70-110) mg/dL Calcium 8.2 L (8.4-10.2) mg/dL Fluid Appearance (Clear) Microbiology - Last 24 Hours (Table) 06/06/23 11:00 Gram Stain - Preliminary Pleural Fluid - Imaging and Cardiology Chest x-ray: report reviewed, image reviewed Assessment and Plan Assessment: Right-sided empyema, status post right [facility] Shortness of breath secondary to above New-onset paroxysmal atrial fibrillation, currently sinus with occasional PACs Acute on chronic hypoxemic respiratory failure, on 2 L of oxygen chronically as an outpatient Leukocytosis, lactic acidosis present on admission History of coronary artery disease status post PCI 3 Hypertension Hyperlipidemia Diabetes COPD, with recent hospitalization for exacerbation of COPD on 05/25/2023 Remote history of tobacco dependence Plan: We will instill a dose of alteplase/dornase to his pigtail catheter today which will be his second dose. Continue to monitor drainage. Continue to monitor daily chest x-rays. We will order an incentive spirometry and encourage use 10 times every hour while awake. Wean oxygen as tolerated, bronchodilator management per pulmonary/critical care medicine. Increase activity as tolerated. GI and DVT prophylaxis, NIDHI hose and SCDs ordered. Medical management other comorbidities per primary care service, cardiology and pulmonary medicine. Pain control per Court when necessary orders. Antibiotic management per pulmonary/critical care medicine, sputum culture showing pseudomonas aeruginosa, Serratia marcescens and Coreybacterium striatum, he is currently on Zosyn for IV antibiotic coverage. More recommendations to follow based on patient's clinical course. Time with Patient: Greater than 30
[2023-06-07] MEDS: ALTEPLASE 10 MG in SODIUM CHLORIDE 0.9% 50 ML IRRIGATION ONE (11:01)
[2023-06-07] MEDS: DORNASE ALFA 5 MG in SODIUM CHLORIDE 0.9% 50 ML IRRIGATION ONE (11:01)
[2023-06-07 11:30] LABS: Glucose,Whole Blood 132 mg/dL (70-110)
--- NOTE | 2023-06-07 14:49 | P.PN ---
Subjective Progress Note Date: 06/07/23 On 06/04/2023, I am seeing the patient in follow-up regarding shortness of breath. The patient was found to be in atrial fibrillation with rapid ventricular response and the patient also was found to be in heart failure with a right-sided pleural effusion. The patient continued to have increased lower e xtremity edema. The patient was seen by cardiology. The patient was switched to oral amiodarone and beta-blockers. Echocardiogram was also done on 06/02/2023 and echo showed a left ventricular ejection fraction of 40 to 45%. RV was not adequately visualized. There was a technically difficult study to evaluate. CT of the chest that was done at time of admission showed right mid lower lobe comp ressive atelectasis. Significant increase in the size of the right-sided pleural effusion compared to the earlier study that was done on 05/23/2023. No evidence of any pulm embolism. There was some mild to moderate emphysematous changes in the background. Ultrasound of the chest was also done on 06/03/2023 and the patient was found to have a complex right-sided pleural effusion measuring 4.3 cm in size. The patient's white cell count at 17.5. Hemoglobin is at 14.3. Viral screen has been negative. Troponins are negative. proBNP level is 477. Procalcitonin level is at 1.48. I reviewed the CAT scan of the chest and it is very much likely that the Is loculated right-sided effusion. There is an obvious worsening in the right-sided pleural effusion over this past few weeks as the CAT scan of the chest that was done on 05/23/2023 showed very small pleural effusion. Note that the patient is known to have COPD with chronic hypoxic respiratory failure on 2 L of oxygen by nasal cannula. Other comorbid conditions include CAD with previous coronary stenting, previous history of COVID-19 infections, hypertension, hyperlipidemia, diabetes mellitus type 2, hyperuricemia/gout, antral gastritis and previous history of lower GI bleed secondary to hemorrhoids. The patient himself is still having pain along the right side of the chest. Suspend the night on a BiPAP and currently is on 4 L of oxygen by nasal cannula. Slightly improved compared to yesterday.The white cell cause of 60 with a hemoglobin of 15.3, BUN is at 46 with a creatinine of 1.2 and a sodium level is at 140 the white cell count is slightly improved compared to yesterday. Pro-calcitonin level is at 1.48. On today's evaluation of 06/05/2023, patient is being seen for a follow-up. The patient was supposed to have a thoracentesis. This was canceled and the patient went into atrial fibrillation with rapid ventricular response. The patient is currently being seen by cardiology regarding the nature. He is still tachycardic. He remains on amiodarone 4 mg by mouth twice a day and he was also placed on metoprolol 50 mg twice a day and is also taking Cardizem drip at 5 mg an hour. We will hold anticoagulation in anticipation for thoracentesis within next 24 hours. A repeat chest x-ray was ordered to evaluate progression of the right-sided pleural effusion which is essentially considered to be a parapne umonic pleural effusion which is loculated. The sputum is also positive for Pseudomonas and Serratia. The patient is currently on IV Zosyn which is adequate for those microorganisms. The patient remains on bronchodilators. The patient is also on Lasix 40 mg IV every 12 hours. His oxygen requirements at 4 L and the patient's pulse ox in the order of 93% his echocardiogram showed a mild impairment of LV function with an ejection fraction of 40-45%. RV and the right-sided pressures were essentially within normal limits to no significant valvular abnormalities. On today's evaluation of 06/06/2023, the patient is being seen for a follow-up. As mentioned, the patient a loculated complex right-sided parapneumonic pleural effusion. The patient is currently on IV Zosyn. Sputum culture was positive for Pseudomonas and Serratia. Meanwhile, the patient will be taken to interventional radiology Department where he is going to have a pigtail catheter insertion. We'll analyze pleural fluid also for chemistry and cytology and cultures. Meanwhile, the patient remains on 4 L of oxygen by nasal cannula. The patient remains on Zosyn. Labs from today shows a WBC of 11.6, hemoglobin 15.7, platelet count is 292. BUN is at 26 with a creatinine of 1.0. Meanwhile, the patient is still being treated for H of fibrillation. The patient is currently on amiodarone 4 mg by mouth twice a day. No anticoagulation was given as the patient is going to have a pigtail catheter insertion today. The patient is also metoprolol 50 mg twice a day. The patient's heart rate is under much better control. The patient is afebrile. Pulse ox 94% on [address] by nasal cannula. Echocardiogram shows an ejection fraction of 40-45% and normal pulmonary artery pressures. On 06/07/2023, the patient doing much better compared to yesterday. The patient underwent a pigtail catheter insertion and the empyema was drained. The fluid is obviously purulent and it was sent for culture. Noted the patient was given a dose of thrombolytic yesterday from the pigtail catheter. A second dose will be given also today. The patient remains on Zosyn . His cardiac rhythm is sinus. No significant chest pain on today's evaluation. The white suppositive 8 with a hemoglobin 15.9. BUN is at 21 with a creatinine of 0.9. Sodiumis 137. The patient has been also started on anticoagulation with Eliquis. He remains on metoprolol 50 mg by mouth twice a day. Antibiotics remain unchanged. Note that the patient had a total of 1.4 L of purulent material output from the right chest since the insertion of the pigtail catheter. His sputum is positive for pseudomonas aeruginosa and Serratia marcescens. This is most likely gram- negative pneumonia with secondary empyema. Objective - Vital Signs Vital signs: Vital Signs Temp 98 F 06/07/23 08:00 Pulse 87 06/07/23 08:30 Resp 20 06/07/23 08:00 BP 122/74 06/07/23 08:00 Pulse Ox 97 06/07/23 08:13 FiO2 60 06/05/23 05:07 Intake & Output 06/06/23 06/07/23 06/07/23 18:59 06:59 18:59 Intake Total 478 140 Output Total 2288 510 120 Balance -1810 -510 20 Weight 107.7 kg Intake: Oral 478 140 Output: Chest Tube Drainage 888 510 120 Pleural Catheter Right 888 510 120 Upper Posterior Chest Urine 1400 Other: Voiding Method External Catheter External Catheter External Catheter - Exam No acute distress, oriented 3. Currently off BiPAP and he is on 02 at 4 liters HEENT examination is grossly unremarkable. Neck supple. Full range of motion. No adenopathy thyromegaly or neck vein distention. Cardiovascular examination reveals an irregular rhythm and rate. S1-S2 normal. No S3 or S4. No discernible murmur noted. Lungs reveal mild scattered rhonchi. No wheezes. No crackles. There is obvious diminished in the breath sounds on the right lung base along with dullness to percussion Abdomen soft bowel sounds are heard. No masses or tenderness. Extremities are intact. No cyanosis or clubbing. 1+ edema is present. Skin is without rash or lesion. Neurologic examination is brief but nonfocal. - Labs CBC & Chem 7: 06/07/23 07:32 06/07/23 07:41 Labs: Abnormal Lab Results - Last 24 Hours (Table) 06/06/23 06/06/23 06/06/23 Range/Units 11:00 11:59 16:39 BUN (9-20) mg/dL Glucose (74-99) mg/dL POC Glucose (mg/dL) 137 H 163 H (70-110) mg/dL Calcium (8.4-10.2) mg/dL Fluid Appearance Turbid A (Clear) 06/06/23 06/07/23 06/07/23 Range/Units 20:08 06:12 07:41 BUN 21 H (9-20) mg/dL Glucose 111 H (74-99) mg/dL POC Glucose (mg/dL) 156 H 114 H (70-110) mg/dL Calcium 8.2 L (8.4-10.2) mg/dL Fluid Appearance (Clear) 06/07/23 Range/Units 11:29 BUN (9-20) mg/dL Glucose (74-99) mg/dL POC Glucose (mg/dL) 132 H (70-110) mg/dL Calcium (8.4-10.2) mg/dL Fluid Appearance (Clear) Microbiology - Last 24 Hours (Table) 06/06/23 11:00 Gram Stain - Preliminary Pleural Fluid Assessment and Plan Plan: Assessment Right lung empyema secondary to gram-negative pneumonia and the sputum cultures positive for Pseudomonas and Serratia. The patient is post pigtail catheter insertion. Total amount of purulent material drained since insertion is around 1.4 L. The patient has received 2 doses of Lasix to assist with drainage of empyema. Follow-up chest from today shows improvement of aeration in the right lung base. There is some limited visual fluid/empyema in the right lung base. Clinically much improved. The patient remains on IV Zosyn. Right lower lobe pneumonia with secondary empyema with sputum showing Pseudomonas and Serratia, susceptible to Zosyn Shortness of breath, likely secondary to above, currently off the BiPAP and the patient is currently on 4 L of oxygen by nasal cannula Acute on chronic hypoxic respiratory failure currently on 4 L, typically on 2 L at home A-fib/RVR , rate controlled and the patient is currently on oral amiodarone and metoprolol. Started on anticoagulation. 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 The patient is currently on amiodarone 400 mg twice a day, metoprolol 50 mg by mouth twice a day , current cardiac rhythm is sinus Continue bronchodilators Titrate oxygen flow to maintain saturation above 90% Will continue to follow
--- NOTE | 2023-06-07 15:31 | P.PN ---
Subjective Progress Note Date: 06/07/23 Principal diagnosis: Shortness of breath The patient is a 77-year-old [id number] gentleman who was admitted to the hospital with shortness of breath and he was found to be in atrial fibrillation with RVR. He was not on anticoagulation because of history of bleeding. He was in heart failure and the chest x-ray showed right pleural effusion was moderate. He was seen and evaluated this morning. He continues to be hypoxic VT continues to have severe bilateral lower extremity edema. The pressure has marginal. He isn't on amiodarone as this point IV which I'm going to switch him to amiodarone orally and continue the beta mac which was started yesterday. The echo still pending. 06/04 patient is seen today in follow-up. Telemetry is atrial fibrillation with RVR and 120 bpm. Repeat chest x-ray reveals moderate right pleural effusion. Echocardiogram reveals EF 40-45%, technically difficult study. Patient states that he is feeling better now than he did last week. 06/05 Patient remains in A. fib with RVR and during the night was started on Cardizem drip currently at 5 mg per hour and this was following a bolus of 10 mg. Patient is currently on amiodarone 400 mg twice daily. Patient has Eloy wrap so were added to the lower extremities. Hemoglobin and platelet count are stable. Discussed with patient option of resuming anticoagulation although he has been off it for some time due to bruising and bleeding. Dr. Scales is planning for possible for him to disease ceases by tomorrow either by himself or IR. We will hold on starting eliquis until this is completed. Yesterday, patient was started on Entresto and Aldactone. 06/06 Patient converted to sinus rhythm about 5 PM yesterday. He however remains on Cardizem drip which will be discontinued. Patient states that he is feeling better and breathing is better. Patient did undergo right pigtail catheter this morning interventional radiology. Cardiothoracic surgery was added for lytic instillation. Plan was to start patient on Eliquis today which we will place on hold for now. Patient has been maintained on IV Lasix 40 mg every 12 hours. 06/07 Patient now has pus draining from his pigtail catheter and is maintained on IV Zosyn. Heart rate is in the 60s to 80s, blood pressure 124/69, pulse ox 95% on 4 L cannula. Repeat blood work reveals CBC normal. Electrolytes normal, BUN 21, creatinine 0.95. Yesterday, IV Lasix was transitioned to oral Bumex and Cardizem drip was discontinued. Telemetry is sinus rhythm. The examination is remarkable for diminished breathing sounds bilaterally and 1+ bilateral lower extremity edema Assessment Atrial fibrillation with RVR Heart failure of unknown etiology at this point Evidence of right and left heart failure Empyema status post right-sided pigtail catheter Multiple comorbid conditions Plan Continue oral Bumex 1 mg daily Monitor I&O, daily weights, electrolytes and renal function Continue Entresto 2426 milligrams twice daily and Aldactone 12.5 mg daily Continue Lopressor to 50 mg twice daily Patient will be started on Eliquis 5 mg twice daily. Nurse practitioner note has been reviewed, I agree with the documented findings and plan of care. Patient was seen and examined. Objective - Vital Signs Vital signs: Vital Signs Temp 98 F 06/07/23 08:00 Pulse 87 06/07/23 08:30 Resp 20 06/07/23 08:00 BP 122/74 06/07/23 08:00 Pulse Ox 97 06/07/23 08:13 FiO2 60 06/05/23 05:07 Intake & Output 06/06/23 06/07/23 06/07/23 18:59 06:59 18:59 Intake Total 478 140 Output Total 2288 510 320 Balance -1810 -510 -180 Weight 107.7 kg Intake: Oral 478 140 Output: Chest Tube Drainage 888 510 120 Pleural Catheter Right 888 510 120 Upper Posterior Chest Urine 1400 200 Other: Voiding Method External Catheter External Catheter External Catheter - Labs CBC & Chem 7: 06/07/23 07:32 06/07/23 07:41 Labs: Abnormal Lab Results - Last 24 Hours (Table) 06/06/23 06/06/23 06/06/23 Range/Units 11:00 11:59 16:39 BUN (9-20) mg/dL Glucose (74-99) mg/dL POC Glucose (mg/dL) 137 H 163 H (70-110) mg/dL Calcium (8.4-10.2) mg/dL Fluid Appearance Turbid A (Clear) 06/06/23 06/07/23 06/07/23 Range/Units 20:08 06:12 07:41 BUN 21 H (9-20) mg/dL Glucose 111 H (74-99) mg/dL POC Glucose (mg/dL) 156 H 114 H (70-110) mg/dL Calcium 8.2 L (8.4-10.2) mg/dL Fluid Appearance (Clear) 06/07/23 Range/Units 11:29 BUN (9-20) mg/dL Glucose (74-99) mg/dL POC Glucose (mg/dL) 132 H (70-110) mg/dL Calcium (8.4-10.2) mg/dL Fluid Appearance (Clear) Microbiology - Last 24 Hours (Table) 06/06/23 11:00 Gram Stain - Preliminary Pleural Fluid
[2023-06-07 16:43] LABS: Glucose,Whole Blood 179 mg/dL (70-110)
--- NOTE | 2023-06-07 18:44 | P.PN ---
Subjective Progress Note Date: 06/07/23 This is a pleasant 77 years old male with multiple medical problems including COPD and Violetta asif. Patient was recently discharged from the hospital for acute COPD exacerbation Presents because of dyspnea requiring BiPAP on admission, compared to home dose of 2 L/m for his chronic hypoxic respiratory failure Patient is awake alert, feels generally weak, FIELD [employer] come to K through his BiPAP mask. Patient says that his breathing was improved after discharge but then started getting gradually worse over the last week or so. Associated with right lower quadrant of chest pain about 10/10 on admission, increase by breathing, for a few days, associated with yellow brown coughing and phlegm His legs are significantly swollen Currently he is on BiPAP 12/5 and FiO2 of 60% Patient denies change in urine or bowel habits. He feels little dizzy but no headache weakness or numbness. He denies smoking or illicit drugs, he drinks alcohol occasionally. Labs and vitals reviewed Currently he is mildly tachypneic and tachycardic with heart rate around 140 He has leukocytosis of 19.1. Creatinine elevated 1.47 compared to baseline of 1.1-0.9. Sodium 136, liver enzymes might be elevated. Temperature 97.3 and INR is unremarkable. This is Influenza A and type B, RSV, SARS (coronavirus) are and detected proBNP 477, t roponin is negative less than 0.03. Troponin is -0.03 ProBNP is 4677 CTA of the chest is negative for pulmonary embolism with right lower lobe atelectasis versus pneumonia with a right pleural effusion 4.5 cm with emphysematous changes 06/03/2023 Patient looks more relaxed more awake His breathing is better His on BiPAP with setting of 12/5 and FiO2 60% Had some minimal discomfort on the right side of the abdomen, KUB is negative patient states he has normal bowel movement we wanted to rule out ileus. Discussed patient is unusual for him Also patient was found to have loculated right pleural effusion secondary to pneumonia and is currently on Zosyn. Physical dictated also by Violetta asif and tachycardia and currently placed on amiodarone and aspirin 81 mg by freight elevator erector 06/04/2023 Patient breathing is improving slowly and gradually Patient STILL uncontrolled and cardiology following closely, he is currently on IV Lasix twice daily as well as beta mac and amiodarone 400 mg twice daily. Aldactone 12.5 and an entresto was added today by freight elevator erector Abdomen that is improving breathing, history using the BiPAP on and off. His tachycardic with a rate 137 this morning Leukocytosis improving down to 16k, , creatinine stable at 1.2 on his sputum culture is growing Pseudomonas and gram-negative bacilli Patient currently covered with Zithromax and Zosyn Consult interventional radiology for possible aspiration of a limited right pleural effusion, otherwise may consider pigtail placement He remains on IV Lasix 40 mg twice daily. Keep monitoring creatinine 06/05/2023 Patient is seen in follow-up today with cardiology and pulmonary following. Interventional radiology consulted with concerns of right pleural effusion with possible loculation and was scheduled the have possible aspiration or pigtail catheter although patient had increased heart rate in the 150s and in atrial fi brillation with RVR. Patient was placed back on Cardizem with cardiology making adjustments to medications. Patient is afebrile and denies worsening shortness of breath although continues to have shortness of breath and maintained on 4 L via nasal cannula. Patient has not required BiPAP. Patient is extremely weak and encouraged increased activity as tolerated and sitting up in the chair more often. Elevate lower extremities and continue with Eloy wraps from the toes up to the knees. Patient was continued on IV Lasix twice daily although clinically appears dry and will hold Lasix for now and follow up on repeat labs. Interventional radiology to reevaluate once heart rate is better controlled. 06/06/2023 Patient is seen in follow-up this morning scheduled to undergo right chest wall catheter placement for continued pleural effusion that appears loculated. Pulmonary along with cardiology following and heart rate is better controlled currently off Cardizem and will continue on telemetry monitoring. Patient continues on 4 L nasal cannula continues with shortness of breath and coughing. Patient is extremely weak recommend physical therapy daily. CT surgery being consulted for possible TPA administration in the catheter. 06/07/2023 Patient is seen and evaluated in follow-up this morning with multiple medical consultations following including pulmonary, cardiology, and CT surgery. Patient is status post TPA administration in the pigtail catheter day to and has drained over 1.4 L of purulent drainage. Culture has been sent and pending at this time. Patient is continued on IV Zosyn and will continue for now. Patient continues on 4 L via nasal cannula and continues to have lower extremity swelling and Lasix was on hold and is being started on Bumex and medications being adjusted including starting eliquis per cardiology recommendations. Patient is currently afebrile with no reported chest pain other than chest wall near the catheter. Patient reports shortness of breath persists although is improved from previous. Patient with lower extremity swelling and recommend NIDHI hose or compression stockings from the toes up to the knees and elevated while at rest. Patient continues to be weak with prolonged hospitalization will likely need ECF on discharge. Review of systems CONSTITUTIONAL: No fever, no malaise, no fatigue. HEENT: No recent visual problems or hearing problems. Denied any sore throat. CARDIOVASCULAR: No orthopnea, PND, no palpitations, no syncope. GASTROINTESTINAL: No diarrhea, no nausea, no vomiting, no abdominal pain. Normoactive bowel sounds. NEUROLOGICAL: No headaches, reports of generalized weakness, no numbness. Physical exam: GENERAL: The patient is alert and oriented x3, not in any acute distress. Well developed, well nourished. Obese. HEENT: Pupils are round and equally reacting to light. EOMI. No scleral icterus. No conjunctival pallor. Normocephalic, atraumatic. No pharyngeal erythema. No thyromegaly. CARDIOVASCULAR: S1 and S2 present. No murmurs, rubs, or gallops. PULMONARY: Diminished breath sounds bilaterally, no wheezing , no crackles. Decreased breath sounds on the right Although improved from yesterday ABDOMEN: Soft, obese, nontender, nondistended, normoactive bowel sounds. No palpable organomegaly. MUSCULOSKELETAL: No joint swelling or deformity. EXTREMITIES: No cyanosis, clubbing, or pedal edema. Patient has some mild bilateral lower extremity edema noted 1+ pitting NEUROLOGICAL: Gross neurological examination did not reveal any focal deficits. Diffusely weak SKIN: No rashes. no petechiae. Assessment: Right lower lobe pneumonia associated with right pleural effusion 4.5 cm, it appears to be a loculated effusion, status post pigtail catheter placement on 06/06/2023 Empyema with gram-negative pneumonia, status post pigtail catheter placement with approximately 1.4 L drained so far, cultures sent and pending A. fib with RVR, present on admission, currently rate controlled and off Cardizem Acute kidney injury improving, possible elements of chronic kidney disease stage III Acute COPD exacerbation, improving Acute on chronic hypoxic respiratory failure, currently on 4 L and normally wears 2 L outpatient Obesity with BMI of 32.1. History of BPH Hypertension GI prophylaxis DVT prophylaxis Full code Plan: Patient is continued on IV Zosyn as sputum culture showed Pseudomonas with serratia and Corynebacterium striatum Pulmonary along with cardiology following and interventional radiology following and has place pigtail catheter for continued right pleural effusion that appears loculated CT surger following and has instilled 2 doses of TPA in the chest tube With approximately 1.4 L of purulent drainage thus far. Cultures have been sent and pending Cardiology following and patient is off Cardizem and currently rate controlled with medication adjustments. Will follow-up on repeat labs PT/OT therapy consulted and pending. Patient will need ECF on discharge is patient is significantly weak and has had prolonged hospitalization Patient continues with lower extremity swelling and have encouraged Eloy wraps to bilateral lower extremities. Per nursing staff patient keeps taking them off. Discussed with the patient the importance of minimizing the swelling and elevating extremities well are rest. NIDHI hose ordered Wean FiO2 as tolerated. Patient currently on 4 L and has not required BiPAP The impression and plan of care has been dictated by Namita Chavarria, Nurse Practitioner as directed. Dr. Brianna MD I have performed a history and examination and MDM of this patient, discussed the same with the dictator, and agree with the dictator's assessment and plan as written ,documented as a scribe. Based on total visit time, I have performed more than 50% of the visit. Objective - Vital Signs Vital signs: Vital Signs Temp 98 F 06/07/23 08:00 Pulse 87 06/07/23 08:30 Resp 20 06/07/23 08:00 BP 122/74 06/07/23 08:00 Pulse Ox 97 06/07/23 08:13 FiO2 60 06/05/23 05:07 Intake & Output 06/06/23 06/07/23 06/07/23 18:59 06:59 18:59 Intake Total 478 140 Output Total 2288 510 120 Balance -1810 -510 20 Weight 107.7 kg Intake: Oral 478 140 Output: Chest Tube Drainage 888 510 120 Pleural Catheter Right 888 510 120 Upper Posterior Chest Urine 1400 Other: Voiding Method External Catheter External Catheter External Catheter - Labs CBC & Chem 7: 06/07/23 07:32 06/07/23 07:41 Labs: Abnormal Lab Results - Last 24 Hours (Table) 06/06/23 06/06/23 06/06/23 Range/Units 11:00 11:59 16:39 BUN (9-20) mg/dL Glucose (74-99) mg/dL POC Glucose (mg/dL) 137 H 163 H (70-110) mg/dL Calcium (8.4-10.2) mg/dL Fluid Appearance Turbid A (Clear) 06/06/23 06/07/23 06/07/23 Range/Units 20:08 06:12 07:41 BUN 21 H (9-20) mg/dL Glucose 111 H (74-99) mg/dL POC Glucose (mg/dL) 156 H 114 H (70-110) mg/dL Calcium 8.2 L (8.4-10.2) mg/dL Fluid Appearance (Clear) Microbiology - Last 24 Hours (Table) 06/06/23 11:00 Gram Stain - Preliminary Pleural Fluid
[2023-06-07 20:50] LABS: Glucose,Whole Blood 189 mg/dL (70-110)
[2023-06-07] MEDS: APIXABAN 5 MG TAB PO SCH (21:18)
[2023-06-08 05:56] LABS: Glucose,Whole Blood 128 mg/dL (70-110)
--- NOTE | 2023-06-08 08:20 | XR ---
EXAMINATION TYPE: XR chest 1V DATE OF EXAM: 06/08/2023 COMPARISON: 06/07/2023 HISTORY: Pleural effusion TECHNIQUE: Single frontal view of the chest is obtained. FINDINGS: Bilateral consolidation and small effusion stable. Underlying COPD. Heart size normal. No pneumothorax. Diffuse osteopenia and arthropathy of the shoulders. IMPRESSION: Bilateral consolidation and small effusion stable.
--- NOTE | 2023-06-08 08:33 | P.PN ---
Subjective Progress Note Date: 06/08/23 Principal diagnosis: Right-sided empyema, shortness of breath on admission. Past medical history significant for coronary artery disease status post PCI 3, hypertension, hyperlipidemia, diabetes, COPD with chronic hypoxemic respiratory failure and 2 L nasal cannula at home and previous tobacco dependence, recently hospitalized for COPD exacerbation and discharged 05/25/2023. Status post day #[address] guided right pigtail chest tube insertion by interventional radiology The patient was seen and examined today 06/08/2023 at his bedside on the third floor cardiac stepdown unit. He is currently sitting up to the bedside chair, is awake, alert, oriented 3 and is in no acute apparent distress. He denies any complaints of pain or shortness of breath at this time, and reports he feels slightly better today than he did yesterday. The patient's right pleural pig tail catheter remains in place, draining thin serosanguineous purulent drainage with 450 mL output in the last 24 hours. The patient has received 2 doses of alteplase/dornase through his left chest pigtail catheter. He remains on Zosyn for antibiotic coverage as his Sputum culture showed pseudomonas aeruginosa, Serratia marcescens and Coreybacterium striatum, he is currently on Zosyn for IV antibiotic coverage. Oxygen saturations are 95% on 4 L nasal cannula and he is achieving 1500 mL on his incentive spirometry with encouragement. Remote telemetry showing normal sinus rhythm heart rate 88 BPM. Laboratory and chest x- ray results reviewed. Objective - Vital Signs Vital signs: Vital Signs Temp 97.5 F L 06/08/23 04:00 Pulse 80 06/08/23 08:11 Resp 18 06/08/23 04:00 BP 136/80 06/08/23 04:00 Pulse Ox 95 06/08/23 04:00 FiO2 60 06/05/23 05:07 Intake & Output 06/07/23 06/08/23 06/08/23 18:59 06:59 18:59 Intake Total 258 980 Output Total 820 1015 Balance -562 -35 Weight 107.6 kg Intake: Intake, IV Titration 200 Amount Piperacillin-Tazobactam 3 200 .375 gm In Sodium Chloride 0.9% 100 ml @ 25 mls/hr IVPB Q8H [facility] Rx#: [id number] Oral 258 780 Output: Chest Tube Drainage 470 90 Pleural Catheter Right 470 90 Upper Posterior Chest Urine 350 925 Other: Voiding Method External Catheter Urinal # Voids 2 - Exam CONSTITUTIONAL: Appears comfortable, cooperative, no acute distress RESPIRATORY: Lungs sounds diminished bilaterally, faint expiratory wheezes. Respirations are symmetrical and nonlabored. Currently on 4 L nasal cannula with oxygen saturation 95%. Strong cough with yellow tenacious sputum. Achieving 1500 mL on his incentive spirometry with encouragement. CARDIOVASCULAR: S1, S2 present. Regular rate and rhythm, sinus rhythm on telemetry, heart rate 88 bpm. Palpable peripheral pulses bilaterally. +2 edema to his bilateral lower extremities. No calf pain or tenderness noted. Knee- high NIDHI hose in place to his bilateral lower extremities. GASTROINTESTINAL: Abdomen soft, nontender, nondistended. Active bowel sounds present 4 quadrants. Tolerating diet. GENITOURINARY: Continues to void. INTEGUMENTARY: Skin is warm and dry, no clubbing or cyanosis is present. NEUROLOGIC: Cranial nerves II through XII intact, no focal deficits. MUSKULOSKELETAL: Able to move all extremities, strength equal bilaterally, generalized weakness. PSYCHIATRIC: Alert and oriented to person place and time, appropriate affect, intact judgment and insight. INVASIVE LINES AND TUBES: Right pleural pigtail catheter present and connected to wall suction, no air leak present. Right pleural pigtail catheter with 450 mL serosanguineous/purulent drainage in the last 24 hours. - Allied health notes Allied health notes reviewed: nursing - Labs CBC & Chem 7: 06/07/23 07:32 06/07/23 07:41 Labs: Abnormal Lab Results - Last 24 Hours (Table) 06/07/23 06/07/23 06/07/23 Range/Units 07:41 11:29 16:40 BUN 21 H (9-20) mg/dL Glucose 111 H (74-99) mg/dL POC Glucose (mg/dL) 132 H 179 H (70-110) mg/dL Calcium 8.2 L (8.4-10.2) mg/dL 06/07/23 06/08/23 Range/Units 20:21 05:46 BUN (9-20) mg/dL Glucose (74-99) mg/dL POC Glucose (mg/dL) 189 H 128 H (70-110) mg/dL Calcium (8.4-10.2) mg/dL Microbiology - Last 24 Hours (Table) 06/06/23 11:00 Gram Stain - Preliminary Pleural Fluid Body Fluid Culture - Preliminary 06/02/23 01:50 Blood Culture - Final Blood 06/02/23 01:35 Blood Culture - Final Blood - Imaging and Cardiology Chest x-ray: report reviewed, image reviewed Assessment and Plan Assessment: Right-sided empyema, status post right pigtail catheter placement by interventional radiology Shortness of breath secondary to above New-onset paroxysmal atrial fibrillation, currently sinus with occasional PACs Acute on chronic hypoxemic respiratory failure, on 2 L of oxygen chronically as an outpatient Leukocytosis, lactic acidosis present on admission History of coronary artery disease status post PCI 3 Hypertension Hyperlipidemia Diabetes COPD, with recent hospitalization for exacerbation of COPD on 05/25/2023 Remote history of tobacco dependence Plan: We will instill a dose of alteplase/dornase to his pigtail catheter today which will be his third dose. Continue to monitor drainage. Continue to monitor daily chest x-rays. We will order an incentive spirometry and encourage use 10 times every hour while awake. Wean oxygen as tolerated, bronchodilator management per pulmonary/critical care medicine. Increase activity as tolerated. Physical therapy and occupational therapy following. GI and DVT prophylaxis, NIDHI hose and SCDs ordered. Medical management other comorbidities per primary care service, cardiology and pulmonary medicine. Pain control per Court when necessary orders. Antibiotic management per pulmonary/critical care medicine, sputum culture showing pseudomonas aeruginosa, Serratia marcescens and Coreybacterium striatum, he is currently on Zosyn for IV antibiotic coverage. More recommendations to follow based on patient's clinical course. Time with Patient: Greater than 30
[2023-06-08 10:04] LABS: African American GFR (CKD) >90 (>60 ml/min/1.73 sqM); Anion Gap 7 mmol/L; Blood Urea Nitrogen 15 mg/dL (9-20); Calcium 8.1 mg/dL (8.4-10.2); Carbon Dioxide 26 mmol/L (22-30); Chloride 101 mmol/L (98-107); Glucose 237 mg/dL (74-99); Non-African American GFR(CKD) 83 (>60 ml/min/1.73 sqM); Potassium 3.6 mmol/L (3.5-5.1); Sodium 134 mmol/L (137-145)
[2023-06-08] MEDS: ACETAMINOPHEN TAB 500 MG TAB PO PRN (10:13)
[2023-06-08 11:29] LABS: Glucose,Whole Blood 170 mg/dL (70-110)
[2023-06-08] MEDS ORDERED: bisacodyL 10 MG SUPP RECTAL PRN (12:08)
[2023-06-08] MEDS: SENNOSIDES 8.6 MG TAB PO SCH (13:42)
[2023-06-08] MEDS: polyethylene glycoL 3350 17 GM POWD.PACK PO SCH (13:43)
[2023-06-08] MEDS: MEGESTROL 40 MG TAB PO SCH (13:43)
--- NOTE | 2023-06-08 14:13 | P.PN ---
Subjective Progress Note Date: 06/08/23 Principal diagnosis: Shortness of breath The patient is a 77-year-old [id number] gentleman who was admitted to the hospital with shortness of breath and he was found to be in atrial fibrillation with RVR. He was not on anticoagulation because of history of bleeding. He was in heart failure and the chest x-ray showed right pleural effusion was moderate. He was seen and evaluated this morning. He continues to be hypoxic VT continues to have severe bilateral lower extremity edema. The pressure has marginal. He isn't on amiodarone as this point IV which I'm going to switch him to amiodarone orally and continue the beta mac which was started yesterday. The echo still pending. 06/04 patient is seen today in follow-up. Telemetry is atrial fibrillation with RVR and 120 bpm. Repeat chest x-ray reveals moderate right pleural effusion. Echocardiogram reveals EF 40-45%, technically difficult study. Patient states that he is feeling better now than he did last week. 06/05 Patient remains in A. fib with RVR and during the night was started on Cardizem drip currently at 5 mg per hour and this was following a bolus of 10 mg. Patient is currently on amiodarone 400 mg twice daily. Patient has Eloy wrap so were added to the lower extremities. Hemoglobin and platelet count are stable. Discussed with patient option of resuming anticoagulation although he has been off it for some time due to bruising and bleeding. Dr. Scales is planning for possible for him to disease ceases by tomorrow either by himself or IR. We will hold on starting eliquis until this is completed. Yesterday, patient was started on Entresto and Aldactone. 06/06 Patient converted to sinus rhythm about 5 PM yesterday. He however remains on Cardizem drip which will be discontinued. Patient states that he is feeling better and breathing is better. Patient did undergo right pigtail catheter this morning interventional radiology. Cardiothoracic surgery was added for lytic instillation. Plan was to start patient on Eliquis today which we will place on hold for now. Patient has been maintained on IV Lasix 40 mg every 12 hours. 06/07 Patient now has pus draining from his pigtail catheter and is maintained on IV Zosyn. Heart rate is in the 60s to 80s, blood pressure 124/69, pulse ox 95% on 4 L cannula. Repeat blood work reveals CBC normal. Electrolytes normal, BUN 21, creatinine 0.95. Yesterday, IV Lasix was transitioned to oral Bumex and Cardizem drip was discontinued. Telemetry is sinus rhythm. 06/08 Patient has had 1 L of pus from pigtail catheter. Heart rate is in the 70s, blood pressure 95/61, pulse ox 96% on 3 L nasal cannula. Repeat blood work reveals sodium 134, potassium 3.6, creatinine 0.87. The examination is remarkable for diminished breathing sounds bilaterally and 1+ bilateral lower extremity edema Assessment Atrial fibrillation with RVR Heart failure of unknown etiology at this point Evidence of right and left heart failure Empyema status post right-sided pigtail catheter Multiple comorbid conditions Plan Continue oral Bumex 1 mg daily Monitor I&O, daily weights, electrolytes and renal function Continue Entresto 2426 milligrams twice daily and Aldactone 12.5 mg daily Continue Lopressor 50 mg twice daily, amiodarone 400 mg twice daily, Eliquis 5 mg twice daily Nurse practitioner note has been reviewed, I agree with the documented findings and plan of care. Patient was seen and examined. Objective - Vital Signs Vital signs: Vital Signs Temp 98.0 F 06/08/23 08:25 Pulse 75 06/08/23 08:25 Resp 18 06/08/23 08:25 BP 97/60 06/08/23 08:25 Pulse Ox 95 06/08/23 08:25 FiO2 60 06/05/23 05:07 Intake & Output 06/07/23 06/08/23 06/08/23 18:59 06:59 18:59 Intake Total 258 980 480 Output Total 820 1015 Balance -562 -35 480 Weight 107.6 kg Intake: Intake, IV Titration 200 Amount Piperacillin-Tazobactam 3 200 .375 gm In Sodium Chloride 0.9% 100 ml @ 25 mls/hr IVPB Q8H [facility] Rx#: [id number] Oral 258 780 480 Output: Chest Tube Drainage 470 90 Pleural Catheter Right 470 90 Upper Posterior Chest Urine 350 925 Other: Voiding Method External Catheter Urinal # Voids 2 - Labs CBC & Chem 7: 06/07/23 07:32 06/08/23 08:29 Labs: Abnormal Lab Results - Last 24 Hours (Table) 06/07/23 06/07/23 06/07/23 Range/Units 11:29 16:40 20:21 POC Glucose (mg/dL) 132 H 179 H 189 H (70-110) mg/dL 06/08/23 Range/Units 05:46 POC Glucose (mg/dL) 128 H (70-110) mg/dL Microbiology - Last 24 Hours (Table) 06/06/23 11:00 Gram Stain - Preliminary Pleural Fluid Body Fluid Culture - Preliminary 06/02/23 01:50 Blood Culture - Final Blood 06/02/23 01:35 Blood Culture - Final Blood
--- NOTE | 2023-06-08 14:22 | P.PN ---
Subjective Progress Note Date: 06/08/23 On 06/04/2023, I am seeing the patient in follow-up regarding shortness of breath. The patient was found to be in atrial fibrillation with rapid ventricular response and the patient also was found to be in heart failure with a right-sided pleural effusion. The patient continued to have increased lower e xtremity edema. The patient was seen by cardiology. The patient was switched to oral amiodarone and beta-blockers. Echocardiogram was also done on 06/02/2023 and echo showed a left ventricular ejection fraction of 40 to 45%. RV was not adequately visualized. There was a technically difficult study to evaluate. CT of the chest that was done at time of admission showed right mid lower lobe comp ressive atelectasis. Significant increase in the size of the right-sided pleural effusion compared to the earlier study that was done on 05/23/2023. No evidence of any pulm embolism. There was some mild to moderate emphysematous changes in the background. Ultrasound of the chest was also done on 06/03/2023 and the patient was found to have a complex right-sided pleural effusion measuring 4.3 cm in size. The patient's white cell count at 17.5. Hemoglobin is at 14.3. Viral screen has been negative. Troponins are negative. proBNP level is 477. Procalcitonin level is at 1.48. I reviewed the CAT scan of the chest and it is very much likely that the Is loculated right-sided effusion. There is an obvious worsening in the right-sided pleural effusion over this past few weeks as the CAT scan of the chest that was done on 05/23/2023 showed very small pleural effusion. Note that the patient is known to have COPD with chronic hypoxic respiratory failure on 2 L of oxygen by nasal cannula. Other comorbid conditions include CAD with previous coronary stenting, previous history of COVID-19 infections, hypertension, hyperlipidemia, diabetes mellitus type 2, hyperuricemia/gout, antral gastritis and previous history of lower GI bleed secondary to hemorrhoids. The patient himself is still having pain along the right side of the chest. Suspend the night on a BiPAP and currently is on 4 L of oxygen by nasal cannula. Slightly improved compared to yesterday.The white cell cause of 60 with a hemoglobin of 15.3, BUN is at 46 with a creatinine of 1.2 and a sodium level is at 140 the white cell count is slightly improved compared to yesterday. Pro-calcitonin level is at 1.48. On today's evaluation of 06/05/2023, patient is being seen for a follow-up. The patient was supposed to have a thoracentesis. This was canceled and the patient went into atrial fibrillation with rapid ventricular response. The patient is currently being seen by cardiology regarding the nature. He is still tachycardic. He remains on amiodarone 4 mg by mouth twice a day and he was also placed on metoprolol 50 mg twice a day and is also taking Cardizem drip at 5 mg an hour. We will hold anticoagulation in anticipation for thoracentesis within next 24 hours. A repeat chest x-ray was ordered to evaluate progression of the right-sided pleural effusion which is essentially considered to be a parapne umonic pleural effusion which is loculated. The sputum is also positive for Pseudomonas and Serratia. The patient is currently on IV Zosyn which is adequate for those microorganisms. The patient remains on bronchodilators. The patient is also on Lasix 40 mg IV every 12 hours. His oxygen requirements at 4 L and the patient's pulse ox in the order of 93% his echocardiogram showed a mild impairment of LV function with an ejection fraction of 40-45%. RV and the right-sided pressures were essentially within normal limits to no significant valvular abnormalities. On today's evaluation of 06/06/2023, the patient is being seen for a follow-up. As mentioned, the patient a loculated complex right-sided parapneumonic pleural effusion. The patient is currently on IV Zosyn. Sputum culture was positive for Pseudomonas and Serratia. Meanwhile, the patient will be taken to interventional radiology Department where he is going to have a pigtail catheter insertion. We'll analyze pleural fluid also for chemistry and cytology and cultures. Meanwhile, the patient remains on 4 L of oxygen by nasal cannula. The patient remains on Zosyn. Labs from today shows a WBC of 11.6, hemoglobin 15.7, platelet count is 292. BUN is at 26 with a creatinine of 1.0. Meanwhile, the patient is still being treated for H of fibrillation. The patient is currently on amiodarone 4 mg by mouth twice a day. No anticoagulation was given as the patient is going to have a pigtail catheter insertion today. The patient is also metoprolol 50 mg twice a day. The patient's heart rate is under much better control. The patient is afebrile. Pulse ox 94% on [address] by nasal cannula. Echocardiogram shows an ejection fraction of 40-45% and normal pulmonary artery pressures. On 06/07/2023, the patient doing much better compared to yesterday. The patient underwent a pigtail catheter insertion and the empyema was drained. The fluid is obviously purulent and it was sent for culture. Noted the patient was given a dose of thrombolytic yesterday from the pigtail catheter. A second dose will be given also today. The patient remains on Zosyn . His cardiac rhythm is sinus. No significant chest pain on today's evaluation. The white suppositive 8 with a hemoglobin 15.9. BUN is at 21 with a creatinine of 0.9. Sodiumis 137. The patient has been also started on anticoagulation with Eliquis. He remains on metoprolol 50 mg by mouth twice a day. Antibiotics remain unchanged. Note that the patient had a total of 1.4 L of purulent material output from the right chest since the insertion of the pigtail catheter. His sputum is positive for pseudomonas aeruginosa and Serratia marcescens. This is most likely gram- negative pneumonia with secondary empyema. On 06/08/2023, the patient is still complaining that her lipids material from the pigtail catheter. Another alteplase administration to be done today. The patient has purulent drainage a total of 450 mL over the past 24 hours, total amount of output has been 1.9 L since administration of the catheter. His cardiac rhythm remained sinus in no significant respiratory distress. No pleurisy. He is still covered with antibiotics. For culture still pending. Cardiac rhythm is sinus. No nausea. No vomiting. No emesis. No hemodynamic instability. He remains afebrile. The white cell count is at at 8 with a hemoglobin of 15.7 and a platelet count of 257. Those labs are from yesterday. As for the chest x-ray, the patient continues to have some residual consolidation right lung base. Possibility of residual pleural effusion cannot be completely ruled out. The patient would have a CAT scan of the chest tomorrow to address for any loculated pockets of pleural fluid/empyema in the right lung. Objective - Vital Signs Vital signs: Vital Signs Temp 98.0 F 06/08/23 08:25 Pulse 75 06/08/23 08:25 Resp 18 06/08/23 08:25 BP 97/60 06/08/23 08:25 Pulse Ox 95 06/08/23 08:25 FiO2 60 06/05/23 05:07 Intake & Output 06/07/23 06/08/23 06/08/23 18:59 06:59 18:59 Intake Total 258 980 480 Output Total 820 1015 Balance -562 -35 480 Weight 107.6 kg Intake: Intake, IV Titration 200 Amount Piperacillin-Tazobactam 3 200 .375 gm In Sodium Chloride 0.9% 100 ml @ 25 mls/hr IVPB Q8H [facility] Rx#: [id number] Oral 258 780 480 Output: Chest Tube Drainage 470 90 Pleural Catheter Right 470 90 Upper Posterior Chest Urine 350 925 Other: Voiding Method External Catheter Urinal # Voids 2 - Exam No acute distress, oriented 3. Currently off BiPAP and he is on 02 at 4 liters HEENT examination is grossly unremarkable. Neck supple. Full range of motion. No adenopathy thyromegaly or neck vein distention. Cardiovascular examination reveals an irregular rhythm and rate. S1-S2 normal. No S3 or S4. No discernible murmur noted. Lungs reveal mild scattered rhonchi. No wheezes. No crackles. There is obvious diminished in the breath sounds on the right lung base along with dull ness to percussion Abdomen soft bowel sounds are heard. No masses or tenderness. Extremities are intact. No cyanosis or clubbing. 1+ edema is present. Skin is without rash or lesion. Neurologic examination is brief but nonfocal. - Labs CBC & Chem 7: 06/07/23 07:32 06/08/23 08:29 Labs: Abnormal Lab Results - Last 24 Hours (Table) 06/07/23 06/07/23 06/07/23 Range/Units 11:29 16:40 20:21 Sodium (137-145) mmol/L Glucose (74-99) mg/dL POC Glucose (mg/dL) 132 H 179 H 189 H (70-110) mg/dL Calcium (8.4-10.2) mg/dL 06/08/23 06/08/23 Range/Units 05:46 08:29 Sodium 134 L (137-145) mmol/L Glucose 237 H (74-99) mg/dL POC Glucose (mg/dL) 128 H (70-110) mg/dL Calcium 8.1 L (8.4-10.2) mg/dL Microbiology - Last 24 Hours (Table) 06/06/23 11:00 Gram Stain - Preliminary Pleural Fluid Body Fluid Culture - Preliminary 06/02/23 01:50 Blood Culture - Final Blood 06/02/23 01:35 Blood Culture - Final Blood Assessment and Plan Plan: Assessment Right lung empyema secondary to gram-negative pneumonia and the sputum cultures positive for Pseudomonas and Serratia. The patient is post pigtail catheter insertion. Total amount of purulent material drained since insertion is around 1.4 L. The patient has received 2 doses of Lasix to assist with drainage of empyema. Follow-up chest from today shows improvement of aeration in the right lung base. There is some limited visual fluid/empyema in the right lung base. Clinically much improved. The patient remains on IV Zosyn. The patient is clinically improving and continues to have adequate drainage from the pigtail catheter with alteplase administration. Total amount of output since administration of the 2 was 1.9 L and 4 50 mL over the past 24 hours. Right lower lobe pneumonia with secondary empyema with sputum showing Pseudomonas and Serratia, susceptible to Zosyn Shortness of breath, likely secondary to above, currently off the BiPAP and the patient is currently on 4 L of oxygen by nasal cannula Acute on chronic hypoxic respiratory failure currently on 4 L, typically on 2 L at home A-fib/RVR , rate controlled and the patient is currently on oral amiodarone and metoprolol. Started on anticoagulation. 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 9 L Awaiting cultures from the pleural space fluid/empyema Continue IV Zosyn Sputum samples are positive for Pseudomonas and Serratia Daily chest x-rays Obtain a noncontrast CAT scan of the chest in the morning to assess for any lung related pockets of empyema The coagulation has been restarted, the patient is currently on Eliquis Management of the HDL fibrillation per cardiology. The patient is currently on amiodarone 400 mg twice a day, metoprolol 50 mg by mouth twice a day , current cardiac rhythm is sinus Continue bronchodilators Titrate oxygen flow to maintain saturation above 90% Will continue to follow
[2023-06-08] MEDS: DORNASE ALFA 5 MG in SODIUM CHLORIDE 0.9% 50 ML IRRIGATION ONE (15:08)
[2023-06-08] MEDS: ALTEPLASE 10 MG in SODIUM CHLORIDE 0.9% 50 ML IRRIGATION ONE (15:08)
[2023-06-08 16:51] LABS: Glucose,Whole Blood 165 mg/dL (70-110)
[2023-06-08 20:07] LABS: Glucose,Whole Blood 223 mg/dL (70-110)
[2023-06-09 06:14] LABS: Glucose,Whole Blood 106 mg/dL (70-110)
--- NOTE | 2023-06-09 07:41 | P.PN ---
Subjective Progress Note Date: 06/09/23 Principal diagnosis: Right-sided empyema, shortness of breath on admission. Past medical history significant for coronary artery disease status post PCI 3, hypertension, hyperlipidemia, diabetes, COPD with chronic hypoxemic respiratory failure and 2 L nasal cannula at home and previous tobacco dependence, recently hospitalized for COPD exacerbation and discharged 05/25/2023. Status post day #[address] guided right pigtail chest tube insertion by interventional radiology Patient was seen and examined in follow-up today 06/09/2019 for his bedside on the third floor cardiac stepdown unit. Currently he is lying in bed, is awake, alert, oriented 3 and is in no acute apparent distress. Denies any complaints of pain at this time or shortness of breath, although reports he feels generalized weakness and fatigue. Oxygen saturations are 95% on 2 L nasal cannula and is achieving 1000 mL on his incentive spirometry with encouragement. Right pleural pigtail catheter remains in place to low continuous wall suction -20 cm H2O. Draining serosanguineous purulent drainage with 350 mL output in the last 24 hours. No air leak is present. He did have alteplase/dornase pleural instillation yesterday through his pigtail catheter which was his third total dose since his pigtail catheter had been placed. Remote telemetry showing normal sinus rhythm heart rate 81 BPM. He remains hemodynamically stable and is currently on no inotropic pressor support. He reports he has been up ambulating in his room and sitting up to the bedside chair yesterday 06/08/2023 and tolerating well. He remains on Zosyn for antibiotic coverage as his Sputum culture showed pseudomonas aeruginosa, Serratia marcescens and Coreybacterium striatum. Pleural fluid Gram stain shows no growth after 48 hours. Chest x-ray results reviewed. Objective - Vital Signs Vital signs: Vital Signs Temp 98.2 F 06/09/23 00:00 Pulse 84 06/09/23 04:00 Resp 18 06/09/23 04:00 BP 114/65 06/09/23 04:00 Pulse Ox 91 L 06/09/23 04:00 FiO2 60 06/05/23 05:07 Intake & Output 06/08/23 06/09/23 06/09/23 18:59 06:59 18:59 Intake Total 1060 Output Total 560 790 Balance 500 -790 Weight 107.6 kg 108.2 kg Intake: Intake, IV Titration 100 Amount Piperacillin-Tazobactam 3 100 .375 gm In Sodium Chloride 0.9% 100 ml @ 25 mls/hr IVPB Q8H [facility] Rx#: [id number] Oral 960 Output: Chest Tube Drainage 285 40 Pleural Catheter Right 285 40 Upper Posterior Chest Urine 275 750 Other: Voiding Method Urinal Urinal # Bowel Movements 0 - Exam CONSTITUTIONAL: Appears comfortable, cooperative, no acute distress RESPIRATORY: Lungs sounds diminished bilaterally, right greater than left. Respirations are symmetrical and nonlabored. Currently on 2 L nasal cannula with oxygen saturation 95%. Strong cough with yellow tenacious sputum. Achieving 1000 mL on his incentive spirometry with encouragement. CARDIOVASCULAR: S1, S2 present. Regular rate and rhythm, sinus rhythm on telemetry, heart rate 81 bpm. Palpable peripheral pulses bilaterally. +2 edema to his bilateral lower extremities. No calf pain or tenderness noted. Knee- high NIDHI hose in place to his bilateral lower extremities. GASTROINTESTINAL: Abdomen soft, nontender, nondistended. Active bowel sounds present 4 quadrants. Tolerating diet. GENITOURINARY: Continues to void. INTEGUMENTARY: Skin is warm and dry, no clubbing or cyanosis is present. NEUROLOGIC: Cranial nerves II through XII intact, no focal deficits. MUSKULOSKELETAL: Able to move all extremities, strength equal bilaterally, generalized weakness. PSYCHIATRIC: Alert and oriented to person place and time, appropriate affect, intact judgment and insight. INVASIVE LINES AND TUBES: Right pleural pigtail catheter present and connected to wall suction, no air leak present. Right pleural pigtail catheter with 350 mL serosanguineous/purulent drainage in the last 24 hours. - Allied health notes Allied health notes reviewed: nursing - Labs CBC & Chem 7: 06/07/23 07:32 06/08/23 08:29 Labs: Abnormal Lab Results - Last 24 Hours (Table) 06/08/23 06/08/23 06/08/23 Range/Units 08:29 11:27 16:50 Sodium 134 L (137-145) mmol/L Glucose 237 H (74-99) mg/dL POC Glucose (mg/dL) 170 H 165 H (70-110) mg/dL Calcium 8.1 L (8.4-10.2) mg/dL 06/08/23 Range/Units 20:06 Sodium (137-145) mmol/L Glucose (74-99) mg/dL POC Glucose (mg/dL) 223 H (70-110) mg/dL Calcium (8.4-10.2) mg/dL Microbiology - Last 24 Hours (Table) 06/06/23 11:00 Gram Stain - Preliminary Pleural Fluid Body Fluid Culture - Preliminary - Imaging and Cardiology Chest x-ray: report reviewed, image reviewed Assessment and Plan Assessment: Right-sided empyema secondary to Shadi negative pneumonia, sputum cultures positive for pseudomonas aeruginosa, Serratia marcescens and Coreybacterium striatum, status post right pigtail catheter placement by interventional radiology Shortness of breath secondary to above New-onset paroxysmal atrial fibrillation, currently sinus rhythm Acute on chronic hypoxemic respiratory failure, on 2 L of oxygen chronically as an outpatient Leukocytosis, lactic acidosis present on admission History of coronary artery disease status post PCI 3 Hypertension Hyperlipidemia Diabetes COPD, with recent hospitalization for exacerbation of COPD on 05/25/2023 Remote history of tobacco dependence Plan: We will instill a dose of alteplase/dornase to his pigtail catheter today which will be his fourth dose. Continue to monitor drainage. Continue to monitor daily chest x-rays. Computed tomography scan of the chest without contrast today is pending. Continue incentive spirometry and encourage use 10 times every hour while awake. Wean oxygen as tolerated, bronchodilator management per pulmonary/critical care medicine. Increase activity as tolerated. Physical therapy and occupational therapy following. GI and DVT prophylaxis, NIDHI hose and SCDs ordered. Medical management other comorbidities per primary care service, cardiology and pulmonary medicine. Pain control per Court when necessary orders. Antibiotic management per pulmonary/critical care medicine, sputum culture showing pseudomonas aeruginosa, Serratia marcescens and Coreybacterium striatum, he is currently on Zosyn for IV antibiotic coverage. Mucinex 1200 mg by mouth twice a day More recommendations to follow based on patient's clinical course. Time with Patient: Greater than 30
[2023-06-09] MEDS: guaiFENesin 600 MG TABLET.ER PO SCH (08:16)
--- NOTE | 2023-06-09 08:54 | XR ---
EXAMINATION TYPE: XR chest 1V DATE OF EXAM: 06/09/2023 COMPARISON: 06/08/2023 HISTORY: Pleural effusion TECHNIQUE: Single frontal view of the chest is obtained. FINDINGS: There is increasing opacity in the right mid to lower lung zone likely a combination of pl eural effusion and atelectasis/pneumonic infiltrate. Small left effusion has cleared in the interval. The pulmonary vasculature is not congested. There is no pneumothorax. The heart is normal for the humberto hnique. The osseous structures are intact IMPRESSION: 1. Acute cardiopulmonary disease which is worse in the interval in the right mid and lower lung zone. 2. Clearing of the left small pleural effusion.
--- NOTE | 2023-06-09 08:57 | P.PN ---
Subjective Progress Note Date: 06/08/23 This is a pleasant 77 years old male with multiple medical problems including COPD and Violetta asif. Patient was recently discharged from the hospital for acute COPD exacerbation Presents because of dyspnea requiring BiPAP on admission, compared to home dose of 2 L/m for his chronic hypoxic respiratory failure Patient is awake alert, feels generally weak, WAFER FABRICATOR come to K through his BiPAP mask. Patient says that his breathing was improved after discharge but then started getting gradually worse over the last week or so. Associated with right lower quadrant of chest pain about 10/10 on admission, increase by breathing, for a few days, associated with yellow brown coughing and phlegm His legs are significantly swollen Currently he is on BiPAP 12/5 and FiO2 of 60% Patient denies change in urine or bowel habits. He feels little dizzy but no headache weakness or numbness. He denies smoking or illicit drugs, he drinks alcohol occasionally. Labs and vitals reviewed Currently he is mildly tachypneic and tachycardic with heart rate around 140 He has leukocytosis of 19.1. Creatinine elevated 1.47 compared to baseline of 1.1-0.9. Sodium 136, liver enzymes might be elevated. Temperature 97.3 and INR is unremarkable. This is Influenza A and type B, RSV, SARS (coronavirus) are and detected proBNP 477, t roponin is negative less than 0.03. Troponin is -0.03 ProBNP is 4677 CTA of the chest is negative for pulmonary embolism with right lower lobe atelectasis versus pneumonia with a right pleural effusion 4.5 cm with emphysematous changes 06/03/2023 Patient looks more relaxed more awake His breathing is better His on BiPAP with setting of 12/5 and FiO2 60% Had some minimal discomfort on the right side of the abdomen, KUB is negative patient states he has normal bowel movement we wanted to rule out ileus. Discussed patient is unusual for him Also patient was found to have loculated right pleural effusion secondary to pneumonia and is currently on Zosyn. Physical dictated also by Violetta asif and tachycardia and currently placed on amiodarone and aspirin 81 mg by display mechanic 06/04/2023 Patient breathing is improving slowly and gradually Patient STILL uncontrolled and cardiology following closely, he is currently on IV Lasix twice daily as well as beta mac and amiodarone 400 mg twice daily. Aldactone 12.5 and an entresto was added today by display mechanic Abdomen that is improving breathing, history using the BiPAP on and off. His tachycardic with a rate 137 this morning Leukocytosis improving down to 16k, , creatinine stable at 1.2 on his sputum culture is growing Pseudomonas and gram-negative bacilli Patient currently covered with Zithromax and Zosyn Consult interventional radiology for possible aspiration of a limited right pleural effusion, otherwise may consider pigtail placement He remains on IV Lasix 40 mg twice daily. Keep monitoring creatinine 06/05/2023 Patient is seen in follow-up today with cardiology and pulmonary following. Interventional radiology consulted with concerns of right pleural effusion with possible loculation and was scheduled the have possible aspiration or pigtail catheter although patient had increased heart rate in the 150s and in atrial fi brillation with RVR. Patient was placed back on Cardizem with cardiology making adjustments to medications. Patient is afebrile and denies worsening shortness of breath although continues to have shortness of breath and maintained on 4 L via nasal cannula. Patient has not required BiPAP. Patient is extremely weak and encouraged increased activity as tolerated and sitting up in the chair more often. Elevate lower extremities and continue with Eloy wraps from the toes up to the knees. Patient was continued on IV Lasix twice daily although clinically appears dry and will hold Lasix for now and follow up on repeat labs. Interventional radiology to reevaluate once heart rate is better controlled. 06/06/2023 Patient is seen in follow-up this morning scheduled to undergo right chest wall catheter placement for continued pleural effusion that appears loculated. Pulmonary along with cardiology following and heart rate is better controlled currently off Cardizem and will continue on telemetry monitoring. Patient continues on 4 L nasal cannula continues with shortness of breath and coughing. Patient is extremely weak recommend physical therapy daily. CT surgery being consulted for possible TPA administration in the catheter. 06/07/2023 Patient is seen and evaluated in follow-up this morning with multiple medical consultations following including pulmonary, cardiology, and CT surgery. Patient is status post TPA administration in the pigtail catheter day to and has drained over 1.4 L of purulent drainage. Culture has been sent and pending at this time. Patient is continued on IV Zosyn and will continue for now. Patient continues on 4 L via nasal cannula and continues to have lower extremity swelling and Lasix was on hold and is being started on Bumex and medications being adjusted including starting eliquis per cardiology recommendations. Patient is currently afebrile with no reported chest pain other than chest wall near the catheter. Patient reports shortness of breath persists although is improved from previous. Patient with lower extremity swelling and recommend NIDHI hose or compression stockings from the toes up to the knees and elevated while at rest. Patient continues to be weak with prolonged hospitalization will likely need ECF on discharge. 06/08/2023 Patient is seen in follow-up today with cardiothoracic surgery and pulmonary following. Patient is status post pigtail catheter placement on the right for loculated pleural effusion. Patient is maintained on antibiotics and awaiting cultures and has been receiving daily TPA administrations to the chest tube. Patient is on 4 L and continue to wean FiO2 as tolerated. Patient reports not eating much does not have much of an appetite and doesn't recall his last bowel movement. Will add bowel regimen along with Megace and encouraged oral intake. Patient with significant weakness will need ECF on discharge. Patient's legs continue to be swollen on lower extremities and does have NIDHI hose applied. Patient is continued on oral diuretic. Review of systems CONSTITUTIONAL: No fever, no malaise, no fatigue. HEENT: No recent visual problems or hearing problems. Denied any sore throat. CARDIOVASCULAR: No orthopnea, PND, no palpitations, no syncope. GASTROINTESTINAL: No diarrhea, no nausea, no vomiting, no abdominal pain. Normoactive bowel sounds. NEUROLOGICAL: No headaches, reports of generalized weakness, no numbness. reports continued lower extremity swelling Physical exam: GENERAL: The patient is alert and oriented x3, not in any acute distress. Well developed, well nourished. ill-appearing. Obese. HEENT: Pupils are round and equally reacting to light. EOMI. No scleral icterus. No conjunctival pallor. Normocephalic, atraumatic. No pharyngeal erythema. No t hyromegaly. CARDIOVASCULAR: S1 and S2 present. No murmurs, rubs, or gallops. PULMONARY: Diminished breath sounds bilaterally, no wheezing , no crackles. Decreased breath sounds on the right Although improved from yesterday. Right pigtail chest tube noted with purulent drainage ABDOMEN: Soft, obese, nontender, nondistended, normoactive bowel sounds. No palpable organomegaly. MUSCULOSKELETAL: No joint swelling or deformity. EXTREMITIES: No cyanosis, clubbing, or pedal edema. Patient has some mild bilateral lower extremity edema noted 1+ pitting NIDHI hose noted NEUROLOGICAL: Gross neurological examination did not reveal any focal deficits. Diffusely weak SKIN: No rashes. no petechiae. Assessment: Right lower lobe pneumonia associated with right pleural effusion 4.5 cm, it appears to be a loculated effusion, status post pigtail catheter placement on 06/06/2023 Empyema with gram-negative pneumonia, status post pigtail catheter placement A. fib with RVR, present on admission, currently rate controlled and off Cardizem Acute kidney injury improving, possible elements of chronic kidney disease stage III Acute COPD exacerbation, improving Acute on chronic hypoxic respiratory failure, currently on 4 L and normally wears 2 L outpatient Obesity with BMI of 32.1. History of BPH Hypertension GI prophylaxis DVT prophylaxis Full code Plan: Patient is continued on IV Zosyn as sputum culture showed Pseudomonas with serratia and Corynebacterium striatum. Pending further cultures Pulmonary along with cardiology following and interventional radiology following and has place pigtail catheter for continued right pleural effusion that appears loculated CT surger following and has instilled 3 doses of TPA in the chest tube With continued purulent drotic in the chest tube Cultures have been sent and pending Cardiology following and patient is off Cardizem and currently rate controlled with medication adjustments. Will follow-up on repeat labs PT/OT therapy consulted and pending. Patient will need ECF on discharge is patient is significantly weak and has had prolonged hospitalization Patient continues with lower extremity swelling and have encouraged Eloy wraps to bilateral lower extremities. Per nursing staff patient keeps taking them off. NIDHI hose have been applied Patient Is reporting no bowel movement in the last few days and will add bowel regimen. Patient encouraged oral intake as patient reports has been having decreased appetite and will add Megace. Wean FiO2 as tolerated. Patient currently on 4 L and has not required BiPAP The impression and plan of care has been dictated by Namita Chavarria, Nurse Practitioner as directed. Dr. Brianna MD I have performed a history and examination and MDM of this patient, discussed the same with the dictator, and agree with the dictator's assessment and plan as written ,documented as a scribe. Based on total visit time, I have performed more than 50% of the visit. Objective - Vital Signs Vital signs: Vital Signs Temp 98.0 F 06/08/23 08:25 Pulse 75 06/08/23 08:25 Resp 18 06/08/23 08:25 BP 97/60 06/08/23 08:25 Pulse Ox 95 06/08/23 08:25 FiO2 60 06/05/23 05:07 Intake & Output 06/07/23 06/08/23 06/08/23 18:59 06:59 18:59 Intake Total 258 980 480 Output Total 820 1015 Balance -562 -35 480 Weight 107.6 kg Intake: Intake, IV Titration 200 Amount Piperacillin-Tazobactam 3 200 .375 gm In Sodium Chloride 0.9% 100 ml @ 25 mls/hr IVPB Q8H [facility] Rx#: [id number] Oral 258 780 480 Output: Chest Tube Drainage 470 90 Pleural Catheter Right 470 90 Upper Posterior Chest Urine 350 925 Other: Voiding Method External Catheter Urinal # Voids 2 - Labs CBC & Chem 7: 06/07/23 07:32 06/08/23 08:29 Labs: Abnormal Lab Results - Last 24 Hours (Table) 06/07/23 06/07/23 06/07/23 Range/Units 11:29 16:40 20:21 POC Glucose (mg/dL) 132 H 179 H 189 H (70-110) mg/dL 06/08/23 Range/Units 05:46 POC Glucose (mg/dL) 128 H (70-110) mg/dL Microbiology - Last 24 Hours (Table) 06/06/23 11:00 Gram Stain - Preliminary Pleural Fluid Body Fluid Culture - Preliminary 06/02/23 01:50 Blood Culture - Final Blood 06/02/23 01:35 Blood Culture - Final Blood
[2023-06-09] MEDS: DORNASE ALFA 5 MG in SODIUM CHLORIDE 0.9% 50 ML IRRIGATION ONE (08:58)
[2023-06-09] MEDS: ALTEPLASE 10 MG in SODIUM CHLORIDE 0.9% 50 ML IRRIGATION ONE (08:58)
--- NOTE | 2023-06-09 10:51 | CT ---
EXAMINATION TYPE: CT chest wo con DATE OF EXAM: 06/09/2023 COMPARISON: 06/06/2023. HISTORY: empyema CT DLP: 545.5 mGycm. Automated Exposure Control for Dose Reduction was Utilized. TECHNIQUE: CT scan of the thorax is performed without IV contrast. FINDINGS: There are marked emphysematous changes. There is a small loculated right pleural fluid collection extending into the minor fissure. There are mild fine interstitial densities in the right lung base representing either chronic interstitial mark nge or interstitial fluid. The left lung is hyperinflated but otherwise normal. There is no pneumotho rax. The great vessels the chest are normal and there is no mediastinal, hilar or axillary adenopathy. Limited scanning of the abdomen reveals no gross abnormality. No focal osseous lesions are seen. IMPRESSION: 1. Small right loculated right pleural effusion. 2. Mild interstitial changes in the right lung base as described above. 3. Marked emphysematous changes
[2023-06-09 11:35] LABS: Glucose,Whole Blood 150 mg/dL (70-110)
--- NOTE | 2023-06-09 12:26 | P.PN ---
Subjective Progress Note Date: 06/09/23 On 06/04/2023, I am seeing the patient in follow-up regarding shortness of breath. The patient was found to be in atrial fibrillation with rapid ventricular response and the patient also was found to be in heart failure with a right-sided pleural effusion. The patient continued to have increased lower e xtremity edema. The patient was seen by cardiology. The patient was switched to oral amiodarone and beta-blockers. Echocardiogram was also done on 06/02/2023 and echo showed a left ventricular ejection fraction of 40 to 45%. RV was not adequately visualized. There was a technically difficult study to evaluate. CT of the chest that was done at time of admission showed right mid lower lobe comp ressive atelectasis. Significant increase in the size of the right-sided pleural effusion compared to the earlier study that was done on 05/23/2023. No evidence of any pulm embolism. There was some mild to moderate emphysematous changes in the background. Ultrasound of the chest was also done on 06/03/2023 and the patient was found to have a complex right-sided pleural effusion measuring 4.3 cm in size. The patient's white cell count at 17.5. Hemoglobin is at 14.3. Viral screen has been negative. Troponins are negative. proBNP level is 477. Procalcitonin level is at 1.48. I reviewed the CAT scan of the chest and it is very much likely that the Is loculated right-sided effusion. There is an obvious worsening in the right-sided pleural effusion over this past few weeks as the CAT scan of the chest that was done on 05/23/2023 showed very small pleural effusion. Note that the patient is known to have COPD with chronic hypoxic respiratory failure on 2 L of oxygen by nasal cannula. Other comorbid conditions include CAD with previous coronary stenting, previous history of COVID-19 infections, hypertension, hyperlipidemia, diabetes mellitus type 2, hyperuricemia/gout, antral gastritis and previous history of lower GI bleed secondary to hemorrhoids. The patient himself is still having pain along the right side of the chest. Suspend the night on a BiPAP and currently is on 4 L of oxygen by nasal cannula. Slightly improved compared to yesterday.The white cell cause of 60 with a hemoglobin of 15.3, BUN is at 46 with a creatinine of 1.2 and a sodium level is at 140 the white cell count is slightly improved compared to yesterday. Pro-calcitonin level is at 1.48. On today's evaluation of 06/05/2023, patient is being seen for a follow-up. The patient was supposed to have a thoracentesis. This was canceled and the patient went into atrial fibrillation with rapid ventricular response. The patient is currently being seen by cardiology regarding the nature. He is still tachycardic. He remains on amiodarone 4 mg by mouth twice a day and he was also placed on metoprolol 50 mg twice a day and is also taking Cardizem drip at 5 mg an hour. We will hold anticoagulation in anticipation for thoracentesis within next 24 hours. A repeat chest x-ray was ordered to evaluate progression of the right-sided pleural effusion which is essentially considered to be a parapne umonic pleural effusion which is loculated. The sputum is also positive for Pseudomonas and Serratia. The patient is currently on IV Zosyn which is adequate for those microorganisms. The patient remains on bronchodilators. The patient is also on Lasix 40 mg IV every 12 hours. His oxygen requirements at 4 L and the patient's pulse ox in the order of 93% his echocardiogram showed a mild impairment of LV function with an ejection fraction of 40-45%. RV and the right-sided pressures were essentially within normal limits to no significant valvular abnormalities. On today's evaluation of 06/06/2023, the patient is being seen for a follow-up. As mentioned, the patient a loculated complex right-sided parapneumonic pleural effusion. The patient is currently on IV Zosyn. Sputum culture was positive for Pseudomonas and Serratia. Meanwhile, the patient will be taken to interventional radiology Department where he is going to have a pigtail catheter insertion. We'll analyze pleural fluid also for chemistry and cytology and cultures. Meanwhile, the patient remains on 4 L of oxygen by nasal cannula. The patient remains on Zosyn. Labs from today shows a WBC of 11.6, hemoglobin 15.7, platelet count is 292. BUN is at 26 with a creatinine of 1.0. Meanwhile, the patient is still being treated for H of fibrillation. The patient is currently on amiodarone 4 mg by mouth twice a day. No anticoagulation was given as the patient is going to have a pigtail catheter insertion today. The patient is also metoprolol 50 mg twice a day. The patient's heart rate is under much better control. The patient is afebrile. Pulse ox 94% on [address] by nasal cannula. Echocardiogram shows an ejection fraction of 40-45% and normal pulmonary artery pressures. On 06/07/2023, the patient doing much better compared to yesterday. The patient underwent a pigtail catheter insertion and the empyema was drained. The fluid is obviously purulent and it was sent for culture. Noted the patient was given a dose of thrombolytic yesterday from the pigtail catheter. A second dose will be given also today. The patient remains on Zosyn . His cardiac rhythm is sinus. No significant chest pain on today's evaluation. The white suppositive 8 with a hemoglobin 15.9. BUN is at 21 with a creatinine of 0.9. Sodiumis 137. The patient has been also started on anticoagulation with Eliquis. He remains on metoprolol 50 mg by mouth twice a day. Antibiotics remain unchanged. Note that the patient had a total of 1.4 L of purulent material output from the right chest since the insertion of the pigtail catheter. His sputum is positive for pseudomonas aeruginosa and Serratia marcescens. This is most likely gram- negative pneumonia with secondary empyema. On 06/08/2023, the patient is still complaining that her lipids material from the pigtail catheter. Another alteplase administration to be done today. The patient has purulent drainage a total of 450 mL over the past 24 hours, total amount of output has been 1.9 L since administration of the catheter. His cardiac rhythm remained sinus in no significant respiratory distress. No pleurisy. He is still covered with antibiotics. For culture still pending. Cardiac rhythm is sinus. No nausea. No vomiting. No emesis. No hemodynamic instability. He remains afebrile. The white cell count is at at 8 with a hemoglobin of 15.7 and a platelet count of 257. Those labs are from yesterday. As for the chest x-ray, the patient continues to have some residual consolidation right lung base. Possibility of residual pleural effusion cannot be completely ruled out. The patient would have a CAT scan of the chest tomorrow to address for any loculated pockets of pleural fluid/empyema in the right lung. 06/09/2023, the patient is being seen for a follow-up. The patient is doing well. No specific complaints. Output from the pigtail catheter has been in the order of 400 mL over the past 24 hours. As such, the output is improved and the patient is receiving daily alteplase regarding his right lung empyema. A follow-up CAT scan of the chest was done today and the CAT scan showed very limited loculated right-sided pleural effusion. Patient has background emphysema as noted. No chest pain. No pleurisy. Remains on 2 L O2 by nasal cannula. The patient is in sinus rhythm and he is hemodynamically stable. He was started on anticoagulation with Eliquis. Objective - Vital Signs Vital signs: Vital Signs Temp 97.4 F L 06/09/23 08:12 Pulse 99 06/09/23 09:37 Resp 18 06/09/23 09:37 BP 110/70 06/09/23 08:12 Pulse Ox 93 L 06/09/23 08:12 FiO2 60 06/05/23 05:07 Intake & Output 06/08/23 06/09/23 06/09/23 18:59 06:59 18:59 Intake Total 1060 480 Output Total 560 790 Balance 500 -790 480 Weight 107.6 kg 108.2 kg Intake: Intake, IV Titration 100 Amount Piperacillin-Tazobactam 3 100 .375 gm In Sodium Chloride 0.9% 100 ml @ 25 mls/hr IVPB Q8H [facility] Rx#: [id number] Oral 960 480 Output: Chest Tube Drainage 285 40 Pleural Catheter Right 285 40 Upper Posterior Chest Urine 275 750 Other: Voiding Method Urinal Urinal Urinal # Bowel Movements 0 - Exam No acute distress, oriented 3. Currently off BiPAP and he is on 02 at 4 liters HEENT examination is grossly unremarkable. Neck supple. Full range of motion. No adenopathy thyromegaly or neck vein distention. Cardiovascular examination reveals an irregular rhythm and rate. S1-S2 normal. No S3 or S4. No discernible murmur noted. Lungs reveal mild scattered rhonchi. No wheezes. No crackles. There is obvi ous diminished in the breath sounds on the right lung base along with dullness to percussion Abdomen soft bowel sounds are heard. No masses or tenderness. Extremities are intact. No cyanosis or clubbing. 1+ edema is present. Skin is without rash or lesion. Neurologic examination is brief but nonfocal. - Labs CBC & Chem 7: 06/07/23 07:32 06/08/23 08:29 Labs: Abnormal Lab Results - Last 24 Hours (Table) 06/08/23 06/08/23 06/08/23 Range/Units 08:29 11:27 16:50 Sodium 134 L (137-145) mmol/L Glucose 237 H (74-99) mg/dL POC Glucose (mg/dL) 170 H 165 H (70-110) mg/dL Calcium 8.1 L (8.4-10.2) mg/dL 06/08/23 Range/Units 20:06 Sodium (137-145) mmol/L Glucose (74-99) mg/dL POC Glucose (mg/dL) 223 H (70-110) mg/dL Calcium (8.4-10.2) mg/dL Microbiology - Last 24 Hours (Table) 06/06/23 11:00 Gram Stain - Preliminary Pleural Fluid Body Fluid Culture - Preliminary Assessment and Plan Plan: Assessment Right lung empyema secondary to gram-negative pneumonia and the sputum cultures positive for Pseudomonas and Serratia. The patient is post pigtail catheter insertion. Output from the pigtail catheter has been in the order of 400 mL and the follow-up CAT scan of the chest showed a very tiny residual empyema in the right lung. No loculated pockets. Clinically improved. Receiving daily alteplase treatment. Right lower lobe pneumonia with secondary empyema with sputum showing Pseudomonas and Serratia, susceptible to Zosyn Shortness of breath, likely secondary to above, currently off the BiPAP and the patient is currently on 4 L of oxygen by nasal cannula Acute on chronic hypoxic respiratory failure currently on 2 L, typically on 2 L at home A-fib/RVR , rate controlled and the patient is currently on oral amiodarone and metoprolol. Started on anticoagulation. 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 The patient will be given his last dose of alteplase today. CAT scan of the chest is also favorable. Cultures from the empyema have been negative Continue IV Zosyn Sputum samples are positive for Pseudomonas and Serratia Daily chest x-rays CAT scan of the chest was noted Continue anticoagulation with Eliquis Continue bronchodilators Titrate oxygen flow to maintain saturation above 90% Will continue to follow
[2023-06-09] MEDS: PIPERACILLIN-TAZOBACTAM 3.375 GM in SODIUM CHLORIDE 0.9% 100 ML IVPB SCH (12:36)
--- NOTE | 2023-06-09 13:10 | P.PN ---
Subjective Progress Note Date: 06/09/23 This is a pleasant 77 years old male with multiple medical problems including COPD and Violetta asif. 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 Patient says that his breathing was improved after discharge but then started getting gradually worse over the last week or so. Associated with right lower quadrant of chest pain about 10/10 on admission, increase by breathing, for a few days, associated with yellow brown coughing and phlegm His legs are significantly swollen Currently he is on BiPAP 12/5 and FiO2 of 60% Patient denies change in urine or bowel habits. He feels little dizzy but no headache weakness or numbness. He denies smoking or illicit drugs, he drinks alcohol occasionally. Labs and vitals reviewed Currently he is mildly tachypneic and tachycardic with heart rate around 140 He has leukocytosis of 19.1. Creatinine elevated 1.47 compared to baseline of 1.1-0.9. Sodium 136, liver enzymes might be elevated. Temperature 97.3 and INR is unremarkable. This is Influenza A and type B, RSV, SARS (coronavirus) are and detected proBNP 477, tro ponin is negative less than 0.03. Troponin is -0.03 ProBNP is 4677 CTA of the chest is negative for pulmonary embolism with right lower lobe atelectasis versus pneumonia with a right pleural effusion 4.5 cm with emphysematous changes 06/03/2023 Patient looks more relaxed more awake His breathing is better His on BiPAP with setting of 12/5 and FiO2 60% Had some minimal discomfort on the right side of the abdomen, KUB is negative patient states he has normal bowel movement we wanted to rule out ileus. Discussed patient is unusual for him Also patient was found to have loculated right pleural effusion secondary to pneumonia and is currently on Zosyn. Physical dictated also by Violetta asif and tachycardia and currently placed on amiodarone and aspirin 81 mg by learning and development specialist 06/04/2023 Patient breathing is improving slowly and gradually Patient STILL uncontrolled and cardiology following closely, he is currently on IV Lasix twice daily as well as beta mac and amiodarone 400 mg twice daily. Aldactone 12.5 and an entresto was added today by learning and development specialist Abdomen that is improving breathing, history using the BiPAP on and off. His tachycardic with a rate 137 this morning Leukocytosis improving down to 16k, , creatinine stable at 1.2 on his sputum culture is growing Pseudomonas and gram-negative bacilli Patient currently covered with Zithromax and Zosyn Consult interventional radiology for possible aspiration of a limited right pleural effusion, otherwise may consider pigtail placement He remains on IV Lasix 40 mg twice daily. Keep monitoring creatinine 06/05/2023 Patient is seen in follow-up today with cardiology and pulmonary following. Interventional radiology consulted with concerns of right pleural effusion with possible loculation and was scheduled the have possible aspiration or pigtail catheter although patient had increased heart rate in the 150s and in atrial fibrillation with RVR. Patient was placed back on Cardizem with cardiology making adjustments to medications. Patient is afebrile and denies worsening shortness of breath although continues to have shortness of breath and maintained on 4 L via nasal cannula. Patient has not required BiPAP. Patient i s extremely weak and encouraged increased activity as tolerated and sitting up in the chair more often. Elevate lower extremities and continue with Eloy wraps from the toes up to the knees. Patient was continued on IV Lasix twice daily although clinically appears dry and will hold Lasix for now and follow up on repeat labs. Interventional radiology to reevaluate once heart rate is better controlled. 06/06/2023 Patient is seen in follow-up this morning scheduled to undergo right chest wall catheter placement for continued pleural effusion that appears loculated. Pulmonary along with cardiology following and heart rate is better controlled currently off Cardizem and will continue on telemetry monitoring. Patient continues on 4 L nasal cannula continues with shortness of breath and coughing. Patient is extremely weak recommend physical therapy daily. CT surgery being consulted for possible TPA administration in the catheter. 06/07/2023 Patient is seen and evaluated in follow-up this morning with multiple medical consultations following including pulmonary, cardiology, and CT surgery. Patient is status post TPA administration in the pigtail catheter day to and has drained over 1.4 L of purulent drainage. Culture has been sent and pending at this time. Patient is continued on IV Zosyn and will continue for now. Patient continues on 4 L via nasal cannula and continues to have lower extremity swelling and Lasix was on hold and is being started on Bumex and medications b eing adjusted including starting eliquis per cardiology recommendations. Patient is currently afebrile with no reported chest pain other than chest wall near the catheter. Patient reports shortness of breath persists although is improved from previous. Patient with lower extremity swelling and recommend NIDHI hose or compression stockings from the toes up to the knees and elevated while at rest. Patient continues to be weak with prolonged hospitalization will likely need ECF on discharge. 06/08/2023 Patient is seen in follow-up today with cardiothoracic surgery and pulmonary following. Patient is status post pigtail catheter placement on the right for loculated pleural effusion. Patient is maintained on antibiotics and awaiting cultures and has been receiving daily TPA administrations to the chest tube. Patient is on 4 L and continue to wean FiO2 as tolerated. Patient reports not eating much does not have much of an appetite and doesn't recall his last bowel movement. Will add bowel regimen along with Megace and encouraged oral intake. Patient with significant weakness will need ECF on discharge. Patient's legs continue to be swollen on lower extremities and does have NIDHI hose applied. Patient is continued on oral diuretic. 06/09. Patient seen and examined. Right pleural pigtail catheter remains in place. Draining serosanguineous purulent drainage with 350 mL output in the last 24 hours. No air leak is present. He did have alteplase/dornase pleural instillation yesterday through his pigtail catheter which was his third total dose since his pigtail catheter had been placed. Complaining of productive cough. Gets short of breath on exertion REVIEW OF SYSTEMS: CONSTITUTIONAL: No fever, no malaise,. CARDIOVASCULAR: No chest pain, no palpitations, no syncope. PULMONARY: As mentioned above GASTROINTESTINAL: No diarrhea, no nausea, no vomiting, no abdominal pain. NEUROLOGICAL: No headaches, no weakness, PHYSICAL EXAMINATION: GENERAL: The patient is alert and oriented x3, not in any acute distress. Well developed, well nourished. HEENT: Pupils are round and equally reacting to light. EOMI. No scleral icterus. No conjunctival pallor. Normocephalic, atraumatic. No pharyngeal erythema. No thyromegaly. CARDIOVASCULAR: S1 and S2 present. No murmurs, rubs, or gallops. PULMONARY: Diminished breath sounds at the right lung base, right-sided pigtail catheter seen. ABDOMEN: Soft, nontender, nondistended, normoactive bowel sounds. No palpable organomegaly. MUSCULOSKELETAL: No joint swelling or deformity. EXTREMITIES: No cyanosis, clubbing, or pedal edema. NEUROLOGICAL: Gross neurological examination did not reveal any focal deficits. SKIN: No rashes. Assessment and plan Right lower lobe pneumonia associated with right pleural effusion 4.5 cm, it appears to be a loculated effusion, status post pigtail catheter placement on 06/06/2023 Empyema with gram-negative pneumonia, status post pigtail catheter placement A. fib with RVR, present on admission, currently rate controlled and off Cardizem Acute kidney injury improving, possible elements of chronic kidney disease stage III Acute COPD exacerbation, improving Acute on chronic hypoxic respiratory failure, currently on 4 L and normally wears 2 L outpatient Obesity with BMI of 32.1. History of BPH Hypertension Plan: monitor vital signs Monitor CBC Monitor CMP Continue telemetry monitoring Encourage use of incentive spirometer Continue IV Zosyn as sputum culture showed Pseudomonas with serratia and Corynebacterium striatum. interventional radiology had place pigtail catheter for continued right pleural effusion that appears loculated CT surger following and has instilled 3 doses of TPA in the chest tube until now with the fourth dose to be given on 06/09. Continue oral Bumex 1 mg daily Monitor I&O, daily weights, electrolytes and renal function Continue Entresto 2426 milligrams twice daily and Aldactone 12.5 mg daily Continue Lopressor 50 mg twice daily, amiodarone 400 mg twice daily, Eliquis 5 mg twice daily Cardiology following Pulmonary following PT/OT therapy consulted Labs and medication were reviewed.. Continue same treatment. Continue with symptomatic treatment. Resume home medication. Monitor labs and vitals. DVT and GI prophylaxis. Further recommendations as per clinical course of the patient Dictation was produced using [employer] dictation software. please excuse any gramma tical, word or spelling errors. Objective - Vital Signs Vital signs: Vital Signs Temp 97.4 F L 06/09/23 08:12 Pulse 99 06/09/23 09:37 Resp 18 06/09/23 09:37 BP 110/70 06/09/23 08:12 Pulse Ox 93 L 06/09/23 08:12 FiO2 60 06/05/23 05:07 Intake & Output 06/08/23 06/09/23 06/09/23 18:59 06:59 18:59 Intake Total 1060 480 Output Total 560 790 Balance 500 -790 480 Weight 107.6 kg 108.2 kg Intake: Intake, IV Titration 100 Amount Piperacillin-Tazobactam 3 100 .375 gm In Sodium Chloride 0.9% 100 ml @ 25 mls/hr IVPB Q8H [facility] Rx#: [id number] Oral 960 480 Output: Chest Tube Drainage 285 40 Pleural Catheter Right 285 40 Upper Posterior Chest Urine 275 750 Other: Voiding Method Urinal Urinal Urinal # Bowel Movements 0 - Labs CBC & Chem 7: 06/07/23 07:32 06/08/23 08:29 Labs: Abnormal Lab Results - Last 24 Hours (Table) 06/08/23 06/08/23 06/08/23 Range/Units 08:29 11:27 16:50 Sodium 134 L (137-145) mmol/L Glucose 237 H (74-99) mg/dL POC Glucose (mg/dL) 170 H 165 H (70-110) mg/dL Calcium 8.1 L (8.4-10.2) mg/dL 06/08/23 Range/Units 20:06 Sodium (137-145) mmol/L Glucose (74-99) mg/dL POC Glucose (mg/dL) 223 H (70-110) mg/dL Calcium (8.4-10.2) mg/dL Microbiology - Last 24 Hours (Table) 06/06/23 11:00 Gram Stain - Preliminary Pleural Fluid Body Fluid Culture - Preliminary
[2023-06-09 16:30] LABS: Glucose,Whole Blood 130 mg/dL (70-110)
--- NOTE | 2023-06-09 18:54 | P.PN ---
Subjective Progress Note Date: 06/09/23 Shortness of breath The patient is a 77-year-old [id number] gentleman who was admitted to the hospital with shortness of breath and he was found to be in atrial fibrillation with RVR. He was not on anticoagulation because of history of bleeding. He was in heart failure and the chest x-ray showed right pleural effusion was moderate. He was seen and evaluated this morning. He continues to be hypoxic VT continues to have severe bilateral lower extremity edema. The pressure has marginal. He isn't on amiodarone as this point IV which I'm going to switch him to amiodarone orally and continue the beta mac which was started yesterday. The echo still pending. 06/04 patient is seen today in follow-up. Telemetry is atrial fibrillation with RVR and 120 bpm. Repeat chest x-ray reveals moderate right pleural effusion. Echocardiogram reveals EF 40-45%, technically difficult study. Patient states that he is feeling better now than he did last week. 06/05 Patient remains in A. fib with RVR and during the night was started on Cardizem drip currently at 5 mg per hour and this was following a bolus of 10 mg. Patient is currently on amiodarone 400 mg twice daily. Patient has Eloy wrap so were added to the lower extremities. Hemoglobin and platelet count are stable. Discussed with patient option of resuming anticoagulation although he has been off it for some time due to bruising and bleeding. Dr. Scales is planning for possible for him to disease ceases by tomorrow either by himself or IR. We will hold on starting eliquis until this is completed. Yesterday, patient was started on Entresto and Aldactone. 06/06 Patient converted to sinus rhythm about 5 PM yesterday. He however remains on Cardizem drip which will be discontinued. Patient states that he is feeling bet ter and breathing is better. Patient did undergo right pigtail catheter this morning interventional radiology. Cardiothoracic surgery was added for lytic instillation. Plan was to start patient on Eliquis today which we will place on hold for now. Patient has been maintained on IV Lasix 40 mg every 12 hours. 06/07 Patient now has pus draining from his pigtail catheter and is maintained on IV Z osyn. Heart rate is in the 60s to 80s, blood pressure 124/69, pulse ox 95% on 4 L cannula. Repeat blood work reveals CBC normal. Electrolytes normal, BUN 21, creatinine 0.95. Yesterday, IV Lasix was transitioned to oral Bumex and Cardizem drip was discontinued. Telemetry is sinus rhythm. 06/08 Patient has had 1 L of pus from pigtail catheter. Heart rate is in the 70s, blood pressure 95/61, pulse ox 96% on 3 L nasal cannula. Repeat blood work reveals sodium 134, potassium 3.6, creatinine 0.87. 06/09/2023 Hemodynamics stable, more comfortable. Less short of breath. Able to lay flat in the bed. The examination is remarkable for diminished breathing sounds bilaterally and 1+ bilateral lower extremity edema. Serosanguineous discharge no further pus Assessment Atrial fibrillation with RVR, Heart failure of unknown etiology at this point Evidence of right and left heart failure Empyema status post right-sided pigtail catheter Multiple comorbid conditions Plan Continue oral Bumex 1 mg daily Monitor I&O, daily weights, electrolytes and renal function Continue Entresto 2426 milligrams twice daily and Aldactone 12.5 mg daily Continue Lopressor 50 mg twice daily, amiodarone 400 mg twice daily, Eliquis 5 mg twice daily Amiodarone taper as per the protocol Objective - Vital Signs Vital signs: Vital Signs Temp 97.4 F L 06/09/23 08:12 Pulse 85 06/09/23 17:21 Resp 18 06/09/23 17:21 BP 140/85 06/09/23 17:21 Pulse Ox 96 06/09/23 17:21 FiO2 60 06/05/23 05:07 Intake & Output 06/08/23 06/09/23 06/09/23 18:59 06:59 18:59 Intake Total 1060 700 Output Total 560 790 790 Balance 500 -790 -90 Weight 107.6 kg 108.2 kg Intake: Intake, IV Titration 100 100 Amount Piperacillin-Tazobactam 3 100 100 .375 gm In Sodium Chloride 0.9% 100 ml @ 25 mls/hr IVPB Q8H [facility] Rx#: [id number] Oral 960 600 Output: Chest Tube Drainage 285 40 40 Pleural Catheter Right 285 40 40 Upper Posterior Chest Urine 275 750 750 Other: Voiding Method Urinal Urinal Urinal # Bowel Movements 0 - Labs CBC & Chem 7: 01/18/24 07:32 06/08/23 08:29 Labs: Abnormal Lab Results - Last 24 Hours (Table) 06/08/23 06/09/23 06/09/23 Range/Units 20:06 11:34 16:29 POC Glucose (mg/dL) 223 H 150 H 130 H (70-110) mg/dL Microbiology - Last 24 Hours (Table) 06/06/23 11:00 Gram Stain - Preliminary Pleural Fluid Body Fluid Culture - Preliminary
[2023-06-09 20:08] LABS: Glucose,Whole Blood 132 mg/dL (70-110)
[2023-06-10 06:17] LABS: Glucose,Whole Blood 92 mg/dL (70-110)
--- NOTE | 2023-06-10 07:26 | XR ---
EXAMINATION TYPE: XR chest 1V DATE OF EXAM: 06/10/2023 COMPARISON: 06/09/2023 HISTORY: Pleural effusion TECHNIQUE: Single frontal view of the chest is obtained. FINDINGS: There is continued volume loss in the right lung with increasing ill-defined opacification in the rig ht mid to lower lung zone likely a combination of loculated pleural effusion and atelectasis and/or p neumonic infiltrate. There has been significant interval worsening compared to the prior study signif icant volume loss. The left lung remains clear. The pulmonary vasculature does not appear congested. The osseous structures are intact. IMPRESSION: . Marked acute cardiopulmonary process in the right lung with significant interval worse marleen compared to previous as described above.
--- NOTE | 2023-06-10 08:32 | P.PN ---
Subjective Progress Note Date: 06/10/23 Principal diagnosis: Right-sided empyema, shortness of breath on admission. Past medical history significant for coronary artery disease status post PCI 3, hypertension, hyperlipidemia, diabetes, COPD with chronic hypoxemic respiratory failure and 2 L nasal cannula at home and previous tobacco dependence, recently hospitalized for COPD exacerbation and discharged 05/25/2023. Status post day #[address] guided right pigtail chest tube insertion by interventional radiology The patient was seen and examined in follow-up today 06/10/2023 at his bedside on the third floor cardiac stepdown unit. He is currently sitting up to the bedside edge, is awake, alert, oriented 3 and is in no acute apparent distress. He is tolerating his breakfast. Oxygen saturation are 93% on 2 L nasal cannula and he is achieving 9943-7629 mL on his incentive spirometry with encouragement. Remote telemetry showing normal sinus rhythm heart rate 86 BPM at this time. The patient reports she has been up ambulating in the cardiac step in the hallway yesterday with standby assistance from nursing staff and tolerated well. Denies any complaints of shortness of breath or pain at this time, although is complaining of some generalized weakness. Right chest pigtail catheter remains in place to low continuous wall suction -20 cm H2O. No air leak is present. Draining thin serous drainage this morning. He has received a total of 4 doses of alteplase/dornase pleural instillation through the pigtail catheter, and has drained 350 mL output in the last 24 hours. A computed tomography scan of the chest was completed yesterday which shows a small right loculated right pleural effusion, mild interstitial changes in the right base, and marked as edematous changes. He remains on Zosyn for antibiotic coverage as his Sputum culture showed pseudomonas aeruginosa, Serratia marcescens and Coreybacterium striatum. Pleural fluid Gram stain shows no growth after 48 hours. Chest x-ray results reviewed. He has been afebrile in the last 24 hours. Objective - Vital Signs Vital signs: Vital Signs Temp 98.7 F 06/09/23 19:51 Pulse 85 06/10/23 04:00 Resp 20 06/10/23 04:00 BP 132/86 06/10/23 04:00 Pulse Ox 93 L 06/10/23 04:00 FiO2 60 06/05/23 05:07 Intake & Output 06/09/23 06/10/23 06/10/23 18:59 06:59 18:59 Intake Total 700 Output Total 790 500 Balance -90 -500 Intake: Intake, IV Titration 100 Amount Piperacillin-Tazobactam 3 100 .375 gm In Sodium Chloride 0.9% 100 ml @ 25 mls/hr IVPB Q8H [facility] Rx#: [id number] Oral 600 Output: Chest Tube Drainage 40 20 Pleural Catheter Right 40 20 Upper Posterior Chest Urine 750 480 Other: Voiding Method Urinal Urinal - Exam CONSTITUTIONAL: Appears comfortable, cooperative, no acute distress RESPIRATORY: Lungs sounds diminished bilaterally, right greater than left. Respirations are symmetrical and nonlabored. Currently on 2 L nasal cannula with oxygen saturation 93%. Strong cough with yellow tenacious sputum. Achieving 7317-9267 mL on his incentive spirometry with encouragement. CARDIOVASCULAR: S1, S2 present. Regular rate and rhythm, sinus rhythm on telemetry, heart rate 86 bpm. Palpable peripheral pulses bilaterally. +2 edema to his bilateral lower extremities. No calf pain or tenderness noted. Knee- high NIDHI hose in place to his bilateral lower extremities. GASTROINTESTINAL: Abdomen soft, nontender, nondistended. Active bowel sounds present 4 quadrants. Tolerating diet. Bowel movement yesterday 06/09/2023. GENITOURINARY: Continues to void. INTEGUMENTARY: Skin is warm and dry, no clubbing or cyanosis is present. NEUROLOGIC: Cranial nerves II through XII intact, no focal deficits. MUSKULOSKELETAL: Able to move all extremities, strength equal bilaterally, generalized weakness. PSYCHIATRIC: Alert and oriented to person place and time, appropriate affect, intact judgment and insight. INVASIVE LINES AND TUBES: Right pleural pigtail catheter present and connected to wall suction, no air leak present. Right pleural pigtail catheter with 350 mL thin serosanguineous drainage in the last 24 hours. - Allied health notes Allied health notes reviewed: nursing - Labs CBC & Chem 7: 06/07/23 07:32 06/08/23 08:29 Labs: Abnormal Lab Results - Last 24 Hours (Table) 06/09/23 06/09/23 06/09/23 Range/Units 11:34 16:29 20:06 POC Glucose (mg/dL) 150 H 130 H 132 H (70-110) mg/dL Microbiology - Last 24 Hours (Table) 06/06/23 11:00 Gram Stain - Preliminary Pleural Fluid Body Fluid Culture - Preliminary - Imaging and Cardiology Chest x-ray: report reviewed, image reviewed Assessment and Plan Assessment: Right-sided empyema secondary to Shadi negative pneumonia, sputum cultures positive for pseudomonas aeruginosa, Serratia marcescens and Coreybacterium striatum, status post right pigtail catheter placement by interventional radiology Shortness of breath secondary to above New-onset paroxysmal atrial fibrillation, currently sinus rhythm Acute on chronic hypoxemic respiratory failure, on 2 L of oxygen chronically as an outpatient Leukocytosis, lactic acidosis present on admission History of coronary artery disease status post PCI 3 Hypertension Hyperlipidemia Diabetes COPD, with recent hospitalization for exacerbation of COPD on 05/25/2023 Remote history of tobacco dependence Plan: We will instill a dose of alteplase/dornase to his pigtail catheter today which will be his fifth total dose. Continue to monitor drainage. Continue to monitor daily chest x-rays. We will obtain a PA and lateral film chest x-ray today as the morning x-ray was rotated. Continue incentive spirometry and encourage use 10 times every hour while awake. Wean oxygen as tolerated, bronchodilator management per pulmonary/critical care medicine. Increase activity as tolerated. Physical therapy and occupational therapy following. GI and DVT prophylaxis, NIDHI hose and SCDs ordered. Medical management other comorbidities per primary care service, cardiology and pulmonary medicine. Pain control per Court when necessary orders. Antibiotic management per pulmonary/critical care medicine, sputum culture showing pseudomonas aeruginosa, Serratia marcescens and Coreybacterium striatum, he is currently on Zosyn for IV antibiotic coverage. Continue Mucinex 1200 mg by mouth twice a day More recommendations to follow based on patient's clinical course. Time with Patient: Less than 30
--- NOTE | 2023-06-10 09:06 | XR ---
EXAMINATION TYPE: XR chest 2V DATE OF EXAM: 06/10/2023 COMPARISON: 05/23/2023 HISTORY: Right-sided empyema TECHNIQUE: Frontal and lateral views of the chest are obtained. FINDINGS: There is increased opacity involving the minor fissure on the right and in the right costophrenic ang le worse compared to the prior study. Is consistent with a history of worsening empyema. Heart size is normal the pulmonary vasculature is not congested. The left lung is clear. There is no pneumothorax IMPRESSION: Compression worsening opacification in the right lung base and minor fissure consistent with worsenin g loculated pleural effusion/empyema.
[2023-06-10] MEDS: ALTEPLASE 10 MG in SODIUM CHLORIDE 0.9% 50 ML IRRIGATION ONE (09:33)
[2023-06-10] MEDS: DORNASE ALFA 5 MG in SODIUM CHLORIDE 0.9% 50 ML IRRIGATION ONE (09:33)
[2023-06-10 09:53] LABS: Basophils % (A) 0 %; Eosinophils # (A) 0.1 k/uL (0-0.7); Eosinophils % (A) 1 %; HGB 14.7 gm/dL (13.0-17.5); Lymphocytes % (A) 11 %; MCH 30.7 pg (25.0-35.0); MCHC 32.6 g/dL (31.0-37.0); MCV 94.2 fL (80.0-100.0); Mean Platelet Volume 7.4; Monocytes # (A) 0.4 k/uL (0-1.0); Monocytes % (A) 4 %; Neutrophils # (A) 7.8 k/uL (1.3-7.7); Neutrophils % (A) 83 %; Platelet Count 302 k/uL (150-450); RBC 4.78 m/uL (4.30-5.90); RDW 13.5 % (11.5-15.5); WBC 9.4 k/uL (3.8-10.6)
[2023-06-10 10:14] LABS: African American GFR (CKD) 84 (>60 ml/min/1.73 sqM); Anion Gap 4 mmol/L; Blood Urea Nitrogen 11 mg/dL (9-20); Calcium 8.2 mg/dL (8.4-10.2); Carbon Dioxide 30 mmol/L (22-30); Chloride 101 mmol/L (98-107); Glucose 163 mg/dL (74-99); Non-African American GFR(CKD) 72 (>60 ml/min/1.73 sqM); Potassium 3.5 mmol/L (3.5-5.1); Sodium 135 mmol/L (137-145)
[2023-06-10 11:46] LABS: Glucose,Whole Blood 154 mg/dL (70-110)
[2023-06-10] MEDS: HYDROcodone/APAP 5-325MG 1 EACH TAB PO PRN (12:26)
--- NOTE | 2023-06-10 12:37 | P.PN ---
Subjective Progress Note Date: 06/10/23 This is a pleasant 77 years old male with multiple medical problems including COPD and Violetta asif. 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 Patient says that his breathing was improved after discharge but then started getting gradually worse over the last week or so. Associated with right lower quadrant of chest pain about 10/10 on admission, increase by breathing, for a few days, associated with yellow brown coughing and phlegm His legs are significantly swollen Currently he is on BiPAP 12/5 and FiO2 of 60% Patient denies change in urine or bowel habits. He feels little dizzy but no headache weakness or numbness. He denies smoking or illicit drugs, he drinks alcohol occasionally. Labs and vitals reviewed Currently he is mildly tachypneic and tachycardic with heart rate around 140 He has leukocytosis of 19.1. Creatinine elevated 1.47 compared to baseline of 1.1-0.9. Sodium 136, liver enzymes might be elevated. Temperature 97.3 and INR is unremarkable. This is Influenza A and type B, RSV, SARS (coronavirus) are and detected proBNP 477, tro ponin is negative less than 0.03. Troponin is -0.03 ProBNP is 4677 CTA of the chest is negative for pulmonary embolism with right lower lobe atelectasis versus pneumonia with a right pleural effusion 4.5 cm with emphysematous changes 06/03/2023 Patient looks more relaxed more awake His breathing is better His on BiPAP with setting of 12/5 and FiO2 60% Had some minimal discomfort on the right side of the abdomen, KUB is negative patient states he has normal bowel movement we wanted to rule out ileus. Discussed patient is unusual for him Also patient was found to have loculated right pleural effusion secondary to pneumonia and is currently on Zosyn. Physical dictated also by Violetta asif and tachycardia and currently placed on amiodarone and aspirin 81 mg by outreach consultant 06/04/2023 Patient breathing is improving slowly and gradually Patient STILL uncontrolled and cardiology following closely, he is currently on IV Lasix twice daily as well as beta mac and amiodarone 400 mg twice daily. Aldactone 12.5 and an entresto was added today by outreach consultant Abdomen that is improving breathing, history using the BiPAP on and off. His tachycardic with a rate 137 this morning Leukocytosis improving down to 16k, , creatinine stable at 1.2 on his sputum culture is growing Pseudomonas and gram-negative bacilli Patient currently covered with Zithromax and Zosyn Consult interventional radiology for possible aspiration of a limited right pleural effusion, otherwise may consider pigtail placement He remains on IV Lasix 40 mg twice daily. Keep monitoring creatinine 06/05/2023 Patient is seen in follow-up today with cardiology and pulmonary following. Interventional radiology consulted with concerns of right pleural effusion with possible loculation and was scheduled the have possible aspiration or pigtail catheter although patient had increased heart rate in the 150s and in atrial fibrillation with RVR. Patient was placed back on Cardizem with cardiology making adjustments to medications. Patient is afebrile and denies worsening shortness of breath although continues to have shortness of breath and maintained on 4 L via nasal cannula. Patient has not required BiPAP. Patient i s extremely weak and encouraged increased activity as tolerated and sitting up in the chair more often. Elevate lower extremities and continue with Eloy wraps from the toes up to the knees. Patient was continued on IV Lasix twice daily although clinically appears dry and will hold Lasix for now and follow up on repeat labs. Interventional radiology to reevaluate once heart rate is better controlled. 06/06/2023 Patient is seen in follow-up this morning scheduled to undergo right chest wall catheter placement for continued pleural effusion that appears loculated. Pulmonary along with cardiology following and heart rate is better controlled currently off Cardizem and will continue on telemetry monitoring. Patient continues on 4 L nasal cannula continues with shortness of breath and coughing. Patient is extremely weak recommend physical therapy daily. CT surgery being consulted for possible TPA administration in the catheter. 06/07/2023 Patient is seen and evaluated in follow-up this morning with multiple medical consultations following including pulmonary, cardiology, and CT surgery. Patient is status post TPA administration in the pigtail catheter day to and has drained over 1.4 L of purulent drainage. Culture has been sent and pending at this time. Patient is continued on IV Zosyn and will continue for now. Patient continues on 4 L via nasal cannula and continues to have lower extremity swelling and Lasix was on hold and is being started on Bumex and medications b eing adjusted including starting eliquis per cardiology recommendations. Patient is currently afebrile with no reported chest pain other than chest wall near the catheter. Patient reports shortness of breath persists although is improved from previous. Patient with lower extremity swelling and recommend NIDHI hose or compression stockings from the toes up to the knees and elevated while at rest. Patient continues to be weak with prolonged hospitalization will likely need ECF on discharge. 06/08/2023 Patient is seen in follow-up today with cardiothoracic surgery and pulmonary following. Patient is status post pigtail catheter placement on the right for loculated pleural effusion. Patient is maintained on antibiotics and awaiting cultures and has been receiving daily TPA administrations to the chest tube. Patient is on 4 L and continue to wean FiO2 as tolerated. Patient reports not eating much does not have much of an appetite and doesn't recall his last bowel movement. Will add bowel regimen along with Megace and encouraged oral intake. Patient with significant weakness will need ECF on discharge. Patient's legs continue to be swollen on lower extremities and does have NIDHI hose applied. Patient is continued on oral diuretic. 06/09. Patient seen and examined. Right pleural pigtail catheter remains in place. Draining serosanguineous purulent drainage with 350 mL output in the last 24 hours. No air leak is present. He did have alteplase/dornase pleural instillation yesterday through his pigtail catheter which was his third total dose since his pigtail catheter had been placed. Complaining of productive cough. Gets short of breath on exertion 06/10. Patient seen and examined. Labs this morning WBC 9.4, hemoglobin 12.7, sodium 135, potassium 3.5, BUN 11, creatinine 1. Denies any shortness of breath. Complaining of productive cough. Complaining of pain at the site of pigtail catheter REVIEW OF SYSTEMS: CONSTITUTIONAL: No fever, no malaise,. CARDIOVASCULAR: No chest pain, no palpitations, no syncope. PULMONARY: As mentioned above GASTROINTESTINAL: No diarrhea, no nausea, no vomiting, no abdominal pain. NEUROLOGICAL: No headaches, no weakness, PHYSICAL EXAMINATION: GENERAL: The patient is alert and oriented x3, not in any acute distress. Well developed, well nourished. HEENT: Pupils are round and equally reacting to light. EOMI. No scleral icterus. No conjunctival pallor. Normocephalic, atraumatic. No pharyngeal erythema. No thyromegaly. CARDIOVASCULAR: S1 and S2 present. No murmurs, rubs, or gallops. PULMONARY: Diminished breath sounds at the right lung base, right-sided pigtail catheter seen. ABDOMEN: Soft, nontender, nondistended, normoactive bowel sounds. No palpable organomegaly. MUSCULOSKELETAL: No joint swelling or deformity. EXTREMITIES: No cyanosis, clubbing, or pedal edema. NEUROLOGICAL: Gross neurological examination did not reveal any focal deficits. SKIN: No rashes. Assessment and plan Right lower lobe pneumonia associated with right pleural effusion 4.5 cm, it tania ears to be a loculated effusion, status post pigtail catheter placement on 06/06/2023 Empyema with gram-negative pneumonia, status post pigtail catheter placement A. fib with RVR, present on admission, currently rate controlled and off Cardizem Acute kidney injury improving, possible elements of chronic kidney disease stage III Acute COPD exacerbation, improving Acute on chronic hypoxic respiratory failure, currently on 4 L and normally wears 2 L outpatient Obesity with BMI of 32.1. History of BPH Hypertension Plan: monitor vital signs Monitor CBC Monitor CMP Continue telemetry monitoring Encourage use of incentive spirometer Continue IV Zosyn as sputum culture showed Pseudomonas with serratia and Corynebacterium striatum. interventional radiology had place pigtail catheter for continued right pleural effusion that appears loculated CT surgery following and has instilled 4 doses of TPA in the chest tube until now, getting fifth dose today Continue oral Bumex 1 mg daily Monitor I&O, daily weights, electrolytes and renal function Continue Entresto 2426 milligrams twice daily and Aldactone 12.5 mg daily Continue Lopressor 50 mg twice daily, amiodarone 400 mg twice daily, Eliquis 5 mg twice daily Cardiology following Pulmonary following PT/OT therapy consulted Labs and medication were reviewed.. Continue same treatment. Continue with symptomatic treatment. Resume home medication. Monitor labs and vitals. DVT and GI prophylaxis. Further recommendations as per clinical course of the patient Dictation was produced using [employer] dictation software. please excuse any grammatical, word or spelling errors. Objective - Vital Signs Vital signs: Vital Signs Temp 98.6 F 06/10/23 08:12 Pulse 92 06/10/23 09:25 Resp 19 06/10/23 09:25 BP 125/75 06/10/23 08:12 Pulse Ox 95 06/10/23 08:12 FiO2 60 06/05/23 05:07 Intake & Output 06/09/23 06/10/23 06/10/23 18:59 06:59 18:59 Intake Total 700 240 Output Total 790 500 Balance -90 -500 240 Intake: Intake, IV Titration 100 Amount Piperacillin-Tazobactam 3 100 .375 gm In Sodium Chloride 0.9% 100 ml @ 25 mls/hr IVPB Q8H [facility] Rx#: [id number] Oral 600 240 Output: Chest Tube Drainage 40 20 Pleural Catheter Right 40 20 Upper Posterior Chest Urine 750 480 Other: Voiding Method Urinal Urinal Urinal - Labs CBC & Chem 7: 06/10/23 09:00 06/10/23 09:00 Labs: Abnormal Lab Results - Last 24 Hours (Table) 06/09/23 06/09/23 06/09/23 Range/Units 11:34 16:29 20:06 Neutrophils # (1.3-7.7) k/uL Sodium (137-145) mmol/L Glucose (74-99) mg/dL POC Glucose (mg/dL) 150 H 130 H 132 H (70-110) mg/dL Calcium (8.4-10.2) mg/dL 06/10/23 06/10/23 Range/Units 09:00 09:00 Neutrophils # 7.8 H (1.3-7.7) k/uL Sodium 135 L (137-145) mmol/L Glucose 163 H (74-99) mg/dL POC Glucose (mg/dL) (70-110) mg/dL Calcium 8.2 L (8.4-10.2) mg/dL Microbiology - Last 24 Hours (Table) 06/06/23 11:00 Gram Stain - Preliminary Pleural Fluid Body Fluid Culture - Preliminary
--- NOTE | 2023-06-10 13:45 | P.PN ---
Subjective Progress Note Date: 06/10/23 On 06/04/2023, I am seeing the patient in follow-up regarding shortness of breath. The patient was found to be in atrial fibrillation with rapid ventricular response and the patient also was found to be in heart failure with a right-sided pleural effusion. The patient continued to have increased lower e xtremity edema. The patient was seen by cardiology. The patient was switched to oral amiodarone and beta-blockers. Echocardiogram was also done on 06/02/2023 and echo showed a left ventricular ejection fraction of 40 to 45%. RV was not adequately visualized. There was a technically difficult study to evaluate. CT of the chest that was done at time of admission showed right mid lower lobe comp ressive atelectasis. Significant increase in the size of the right-sided pleural effusion compared to the earlier study that was done on 05/23/2023. No evidence of any pulm embolism. There was some mild to moderate emphysematous changes in the background. Ultrasound of the chest was also done on 06/03/2023 and the patient was found to have a complex right-sided pleural effusion measuring 4.3 cm in size. The patient's white cell count at 17.5. Hemoglobin is at 14.3. Viral screen has been negative. Troponins are negative. proBNP level is 477. Procalcitonin level is at 1.48. I reviewed the CAT scan of the chest and it is very much likely that the Is loculated right-sided effusion. There is an obvious worsening in the right-sided pleural effusion over this past few weeks as the CAT scan of the chest that was done on 05/23/2023 showed very small pleural effusion. Note that the patient is known to have COPD with chronic hypoxic respiratory failure on 2 L of oxygen by nasal cannula. Other comorbid conditions include CAD with previous coronary stenting, previous history of COVID-19 infections, hypertension, hyperlipidemia, diabetes mellitus type 2, hyperuricemia/gout, antral gastritis and previous history of lower GI bleed secondary to hemorrhoids. The patient himself is still having pain along the right side of the chest. Suspend the night on a BiPAP and currently is on 4 L of oxygen by nasal cannula. Slightly improved compared to yesterday.The white cell cause of 60 with a hemoglobin of 15.3, BUN is at 46 with a creatinine of 1.2 and a sodium level is at 140 the white cell count is slightly improved compared to yesterday. Pro-calcitonin level is at 1.48. On today's evaluation of 06/05/2023, patient is being seen for a follow-up. The patient was supposed to have a thoracentesis. This was canceled and the patient went into atrial fibrillation with rapid ventricular response. The patient is currently being seen by cardiology regarding the nature. He is still tachycardic. He remains on amiodarone 4 mg by mouth twice a day and he was also placed on metoprolol 50 mg twice a day and is also taking Cardizem drip at 5 mg an hour. We will hold anticoagulation in anticipation for thoracentesis within next 24 hours. A repeat chest x-ray was ordered to evaluate progression of the right-sided pleural effusion which is essentially considered to be a parapne umonic pleural effusion which is loculated. The sputum is also positive for Pseudomonas and Serratia. The patient is currently on IV Zosyn which is adequate for those microorganisms. The patient remains on bronchodilators. The patient is also on Lasix 40 mg IV every 12 hours. His oxygen requirements at 4 L and the patient's pulse ox in the order of 93% his echocardiogram showed a mild impairment of LV function with an ejection fraction of 40-45%. RV and the right-sided pressures were essentially within normal limits to no significant valvular abnormalities. On today's evaluation of 06/06/2023, the patient is being seen for a follow-up. As mentioned, the patient a loculated complex right-sided parapneumonic pleural effusion. The patient is currently on IV Zosyn. Sputum culture was positive for Pseudomonas and Serratia. Meanwhile, the patient will be taken to interventional radiology Department where he is going to have a pigtail catheter insertion. We'll analyze pleural fluid also for chemistry and cytology and cultures. Meanwhile, the patient remains on 4 L of oxygen by nasal cannula. The patient remains on Zosyn. Labs from today shows a WBC of 11.6, hemoglobin 15.7, platelet count is 292. BUN is at 26 with a creatinine of 1.0. Meanwhile, the patient is still being treated for H of fibrillation. The patient is currently on amiodarone 4 mg by mouth twice a day. No anticoagulation was given as the patient is going to have a pigtail catheter insertion today. The patient is also metoprolol 50 mg twice a day. The patient's heart rate is under much better control. The patient is afebrile. Pulse ox 94% on [address] by nasal cannula. Echocardiogram shows an ejection fraction of 40-45% and normal pulmonary artery pressures. On 06/07/2023, the patient doing much better compared to yesterday. The patient underwent a pigtail catheter insertion and the empyema was drained. The fluid is obviously purulent and it was sent for culture. Noted the patient was given a dose of thrombolytic yesterday from the pigtail catheter. A second dose will be given also today. The patient remains on Zosyn . His cardiac rhythm is sinus. No significant chest pain on today's evaluation. The white suppositive 8 with a hemoglobin 15.9. BUN is at 21 with a creatinine of 0.9. Sodiumis 137. The patient has been also started on anticoagulation with Eliquis. He remains on metoprolol 50 mg by mouth twice a day. Antibiotics remain unchanged. Note that the patient had a total of 1.4 L of purulent material output from the right chest since the insertion of the pigtail catheter. His sputum is positive for pseudomonas aeruginosa and Serratia marcescens. This is most likely gram- negative pneumonia with secondary empyema. On 06/08/2023, the patient is still complaining that her lipids material from the pigtail catheter. Another alteplase administration to be done today. The patient has purulent drainage a total of 450 mL over the past 24 hours, total amount of output has been 1.9 L since administration of the catheter. His cardiac rhythm remained sinus in no significant respiratory distress. No pleurisy. He is still covered with antibiotics. For culture still pending. Cardiac rhythm is sinus. No nausea. No vomiting. No emesis. No hemodynamic instability. He remains afebrile. The white cell count is at at 8 with a hemoglobin of 15.7 and a platelet count of 257. Those labs are from yesterday. As for the chest x-ray, the patient continues to have some residual consolidation right lung base. Possibility of residual pleural effusion cannot be completely ruled out. The patient would have a CAT scan of the chest tomorrow to address for any loculated pockets of pleural fluid/empyema in the right lung. 06/09/2023, the patient is being seen for a follow-up. The patient is doing well. No specific complaints. Output from the pigtail catheter has been in the order of 400 mL over the past 24 hours. As such, the output is improved and the patient is receiving daily alteplase regarding his right lung empyema. A follow-up CAT scan of the chest was done today and the CAT scan showed very limited loculated right-sided pleural effusion. Patient has background emphysema as noted. No chest pain. No pleurisy. Remains on 2 L O2 by nasal cannula. The patient is in sinus rhythm and he is hemodynamically stable. He was started on anticoagulation with Eliquis. 06/10/2023, the patient has produced approximately 350 mL of fluid from the pigtail catheter. The fluid is nonpurulent and the patient is going to receive another dose of alteplase today. Chest x-ray showing some volume loss and area of consolidation of the right lung. Otherwise, clinically the patient is doing well. No fever or chills. No signs of any septicemia. The patient is currently on 2 L of oxygen by nasal cannula with pulse ox of 94%. The white cell count of 9.4 with a hemoglobin 14.7. BUN is 11 and a creatinine of 1.0 and a sodium level of 135. The pleural fluid cultures are negative as collected from the empyema from the right lung. Lites echoes at 9.4 coming was 14.7 and a platelet count of 302. BUN 11 creatinine of 1 and sodium levels is 135. Objective - Vital Signs Vital signs: Vital Signs Temp 98.6 F 06/10/23 08:12 Pulse 92 06/10/23 09:25 Resp 19 06/10/23 09:25 BP 125/75 06/10/23 08:12 Pulse Ox 95 06/10/23 08:12 FiO2 60 06/05/23 05:07 Intake & Output 06/09/23 06/10/23 06/10/23 18:59 06:59 18:59 Intake Total 700 240 Output Total 790 500 Balance -90 -500 240 Intake: Intake, IV Titration 100 Amount Piperacillin-Tazobactam 3 100 .375 gm In Sodium Chloride 0.9% 100 ml @ 25 mls/hr IVPB Q8H [facility] Rx#: [id number] Oral 600 240 Output: Chest Tube Drainage 40 20 Pleural Catheter Right 40 20 Upper Posterior Chest Urine 750 480 Other: Voiding Method Urinal Urinal Urinal - Exam No acute distress, oriented 3. Currently off BiPAP and he is on 02 at 2 L of oxygen nasal cannula HEENT examination is grossly unremarkable. Neck supple. Full range of motion. No adenopathy thyromegaly or neck vein distention. Cardiovascular examination reveals an irregular rhythm and rate. S1-S2 normal. No S3 or S4. No discernible murmur noted. Lungs reveal mild scattered rhonchi. No wheezes. No crackles. There is obvious diminished in the breath sounds on the right lung base along with dullness to percussion . The patient is a pigtail catheter in his right lung and a total amount of output has been in the order of 3 and 50 mL over the past 24 hours. The fluid is less purulent. Abdomen soft bowel sounds are heard. No masses or tenderness. Extremities are intact. No cyanosis or clubbing. 1+ edema is present. Skin is without rash or lesion. Neurologic examination is brief but nonfocal. - Labs CBC & Chem 7: 06/10/23 09:00 06/10/23 09:00 Labs: Abnormal Lab Results - Last 24 Hours (Table) 06/09/23 06/09/23 06/09/23 Range/Units 11:34 16:29 20:06 POC Glucose (mg/dL) 150 H 130 H 132 H (70-110) mg/dL Microbiology - Last 24 Hours (Table) 06/06/23 11:00 Gram Stain - Preliminary Pleural Fluid Body Fluid Culture - Preliminary Assessment and Plan Plan: Assessment Right lung empyema secondary to gram-negative pneumonia and the sputum cultures positive for Pseudomonas and Serratia. The patient is post pigtail catheter insertion. Output from the pigtail catheter has been in the order of 3 50 mL over the past 24 hours. Another dose of alteplase will be given today. The patient's most recent CAT scan from yesterday showed no residual empyema or loculated pockets of pleural fluid. Right lower lobe pneumonia with secondary empyema with sputum showing Pseudomonas and Serratia, susceptible to Zosyn Shortness of breath, likely secondary to above, currently off the BiPAP and the patient is currently on 4 L of oxygen by nasal cannula Acute on chronic hypoxic respiratory failure currently on 2 L, typically on 2 L at home A-fib/RVR , rate controlled and the patient is currently on oral amiodarone and metoprolol. Started on anticoagulation. 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 We'll keep the pigtail catheter and as the patient has persistent drainage for now. The fluid is less purulence. I reviewed the CAT scan CAT scan of the chest is also favorable. We'll keep the pigtail catheter in place as long as the patient continues to have active drainage. Cultures from the empyema have been negative Continue IV Zosyn Sputum samples are positive for Pseudomonas and Serratia Daily chest x-rays CAT scan of the chest was noted Continue anticoagulation with Eliquis Continue bronchodilators Titrate oxygen flow to maintain saturation above 90% Will continue to follow
--- NOTE | 2023-06-10 15:40 | P.PN ---
Subjective Progress Note Date: 06/10/23 Shortness of breath The patient is a 77-year-old [id number] gentleman who was admitted to the hospital with shortness of breath and he was found to be in atrial fibrillation with RVR. He was not on anticoagulation because of history of bleeding. He was in heart failure and the chest x-ray showed right pleural effusion was moderate. He was seen and evaluated this morning. He continues to be hypoxic VT continues to have severe bilateral lower extremity edema. The pressure has marginal. He isn't on amiodarone as this point IV which I'm going to switch him to amiodarone orally and continue the beta mac which was started yesterday. The echo still pending. 06/04 patient is seen today in follow-up. Telemetry is atrial fibrillation with RVR and 120 bpm. Repeat chest x-ray reveals moderate right pleural effusion. Echocardiogram reveals EF 40-45%, technically difficult study. Patient states that he is feeling better now than he did last week. 06/05 Patient remains in A. fib with RVR and during the night was started on Cardizem drip currently at 5 mg per hour and this was following a bolus of 10 mg. Patient is currently on amiodarone 400 mg twice daily. Patient has Eloy wrap so were added to the lower extremities. Hemoglobin and platelet count are stable. Discussed with patient option of resuming anticoagulation although he has been off it for some time due to bruising and bleeding. Dr. Scales is planning for possible for him to disease ceases by tomorrow either by himself or IR. We will hold on starting eliquis until this is completed. Yesterday, patient was started on Entresto and Aldactone. 06/06 Patient converted to sinus rhythm about 5 PM yesterday. He however remains on Cardizem drip which will be discontinued. Patient states that he is feeling bet ter and breathing is better. Patient did undergo right pigtail catheter this morning interventional radiology. Cardiothoracic surgery was added for lytic instillation. Plan was to start patient on Eliquis today which we will place on hold for now. Patient has been maintained on IV Lasix 40 mg every 12 hours. 06/07 Patient now has pus draining from his pigtail catheter and is maintained on IV Z osyn. Heart rate is in the 60s to 80s, blood pressure 124/69, pulse ox 95% on 4 L cannula. Repeat blood work reveals CBC normal. Electrolytes normal, BUN 21, creatinine 0.95. Yesterday, IV Lasix was transitioned to oral Bumex and Cardizem drip was discontinued. Telemetry is sinus rhythm. 06/08 Patient has had 1 L of pus from pigtail catheter. Heart rate is in the 70s, blood pressure 95/61, pulse ox 96% on 3 L nasal cannula. Repeat blood work reveals sodium 134, potassium 3.6, creatinine 0.87. 06/09/2023 Hemodynamics stable, more comfortable. Less short of breath. Able to lay flat in the bed. The examination is remarkable for diminished breathing sounds bilaterally and 1+ bilateral lower extremity edema. Serosanguineous discharge no further pus 06/10/23 Patient is comfortably sleeping in the flat position. He is not getting short of breath. 1+ bilateral lower extremity edema. Serosanguineous discharge on the pigtail catheter. No more pus. No significant JVD today Assessment Atrial fibrillation with RVR, Heart failure of unknown etiology at this point Evidence of right and left heart failure Empyema status post right-sided pigtail catheter Multiple comorbid conditions Plan Continue oral Bumex 1 mg daily Monitor I&O, daily weights, electrolytes and renal function Continue Entresto 2426 milligrams twice daily and Aldactone 12.5 mg daily Continue Lopressor 50 mg twice daily, amiodarone 400 mg twice daily, Eliquis 5 mg twice daily Amiodarone taper as per the protocol Objective - Vital Signs Vital signs: Vital Signs Temp 98.6 F 06/10/23 08:12 Pulse 90 06/10/23 13:47 Resp 19 06/10/23 13:47 BP 125/75 06/10/23 08:12 Pulse Ox 94 L 06/10/23 12:00 FiO2 60 06/05/23 05:07 Intake & Output 06/09/23 06/10/23 06/10/23 18:59 06:59 18:59 Intake Total 700 240 Output Total 790 500 Balance -90 -500 240 Weight 106 kg Intake: Intake, IV Titration 100 Amount Piperacillin-Tazobactam 3 100 .375 gm In Sodium Chloride 0.9% 100 ml @ 25 mls/hr IVPB Q8H [facility] Rx#: [id number] Oral 600 240 Output: Chest Tube Drainage 40 20 Pleural Catheter Right 40 20 Upper Posterior Chest Urine 750 480 Other: Voiding Method Urinal Urinal Urinal - Labs CBC & Chem 7: 06/10/23 09:00 06/10/23 09:00 Labs: Abnormal Lab Results - Last 24 Hours (Table) 06/09/23 06/09/23 06/10/23 Range/Units 16:29 20:06 09:00 Neutrophils # 7.8 H (1.3-7.7) k/uL Sodium (137-145) mmol/L Glucose (74-99) mg/dL POC Glucose (mg/dL) 130 H 132 H (70-110) mg/dL Calcium (8.4-10.2) mg/dL 06/10/23 06/10/23 Range/Units 09:00 11:44 Neutrophils # (1.3-7.7) k/uL Sodium 135 L (137-145) mmol/L Glucose 163 H (74-99) mg/dL POC Glucose (mg/dL) 154 H (70-110) mg/dL Calcium 8.2 L (8.4-10.2) mg/dL Microbiology - Last 24 Hours (Table) 06/06/23 11:00 Gram Stain - Preliminary Pleural Fluid Body Fluid Culture - Preliminary
[2023-06-10 16:23] LABS: Glucose,Whole Blood 96 mg/dL (70-110)
[2023-06-10 20:22] LABS: Glucose,Whole Blood 189 mg/dL (70-110)
[2023-06-11 06:33] LABS: Glucose,Whole Blood 96 mg/dL (70-110)
--- NOTE | 2023-06-11 08:36 | XR ---
EXAMINATION TYPE: XR chest 2V DATE OF EXAM: 06/11/2023 6:41 AM CLINICAL INDICATION:Male, 77 years old with history of Right empyema; [facility] COMPARISON: Chest radiographs from TECHNIQUE: XR chest 2V Frontal and lateral views of the chest. FINDINGS: Lungs/Pleura: There is no evidence of pleural effusion, focal consolidation, or pneumothorax. Pulmonary vascularity: Unremarkable. Heart/mediastinum: Cardiomediastinal silhouette is unremarkable. Musculoskeletal: No acute osseous pathology. Other findings: Pigtail catheter visualized on the right. Lines/Tubes: IMPRESSION: * Right pleural effusion with associated atelectasis. * Right pigtail catheter without evidence of pneumothorax.
[2023-06-11 08:37] LABS: Basophils % (A) 0 %; Eosinophils # (A) 0.1 k/uL (0-0.7); Eosinophils % (A) 1 %; HCT 45.6 % (39.0-53.0); HGB 14.6 gm/dL (13.0-17.5); Lymphocytes # (A) 1.1 k/uL (1.0-4.8); Lymphocytes % (A) 13 %; MCH 30.3 pg (25.0-35.0); MCHC 32.1 g/dL (31.0-37.0); MCV 94.5 fL (80.0-100.0); Mean Platelet Volume 7.3; Monocytes # (A) 0.4 k/uL (0-1.0); Monocytes % (A) 5 %; Neutrophils # (A) 6.7 k/uL (1.3-7.7); Neutrophils % (A) 80 %; Platelet Count 278 k/uL (150-450); RBC 4.83 m/uL (4.30-5.90); RDW 13.7 % (11.5-15.5); WBC 8.4 k/uL (3.8-10.6)
[2023-06-11 08:59] LABS: ALT 54 U/L (4-49); AST 56 U/L (17-59); African American GFR (CKD) >90 (>60 ml/min/1.73 sqM); Albumin 2.7 g/dL (3.5-5.0); Alkaline Phosphatase 124 U/L (38-126); Anion Gap 9 mmol/L; Blood Urea Nitrogen 10 mg/dL (9-20); Calcium 8.4 mg/dL (8.4-10.2); Carbon Dioxide 25 mmol/L (22-30); Chloride 103 mmol/L (98-107); Glucose 96 mg/dL (74-99); Non-African American GFR(CKD) 83 (>60 ml/min/1.73 sqM); Potassium 4.2 mmol/L (3.5-5.1); Sodium 137 mmol/L (137-145); Total Bilirubin 0.8 mg/dL (0.2-1.3); Total Protein 5.5 g/dL (6.3-8.2)
[2023-06-11 11:51] LABS: Glucose,Whole Blood 136 mg/dL (70-110)
--- NOTE | 2023-06-11 12:19 | P.PN ---
Subjective Progress Note Date: 06/11/23 Principal diagnosis: Right-sided empyema, shortness of breath on admission. Past medical history significant for coronary artery disease status post PCI 3, hypertension, hyperlipidemia, diabetes, COPD with chronic hypoxemic respiratory failure and 2 L nasal cannula at home and previous tobacco dependence, recently hospitalized for COPD exacerbation and discharged 05/25/2023. Status post day #[address] guided right pigtail chest tube insertion by interventional radiology The patient was seen and examined in follow-up today 06/11/2023 at his bedside on the third floor cardiac stepdown unit. He is sitting up to the bedside chair, is awake, alert, oriented 3 and is in no acute distress. Oxygen saturations are 94% on 2 L nasal cannula and he is achieving around 1250 mL on his incentive spirometry with encouragement. He denies any complaints of pain or shortness of breath at this time, but is complaining of continued cough with productive sputum. He remains on Zosyn for antibiotic coverage as his Sputum culture showed pseudomonas aeruginosa, Serratia marcescens and Coreybacterium striatum. Pleural fluid Gram stain shows no growth after 4 days. Right pleural pigtail catheter remains in place to low continuous wall suction -20 cm H2O. No air leak is present. Draining thin serosanguineous drainage with 250 mL output in the last 24 hours. He received a fifth total dose of alteplase/dornase pleural insulation yesterday 06/10/2023. Chest x-ray results reviewed. Objective - Vital Signs Vital signs: Vital Signs Temp 99.3 F 06/11/23 04:30 Pulse 80 06/11/23 04:30 Resp 18 06/11/23 04:30 BP 99/61 06/11/23 04:30 Pulse Ox 94 L 06/11/23 04:30 FiO2 60 06/05/23 05:07 Intake & Output 06/10/23 06/11/23 06/11/23 18:59 06:59 18:59 Intake Total 340 Output Total 500 755 Balance -160 -755 Weight 106 kg 106.1 kg Intake: Intake, IV Titration 100 Amount Piperacillin-Tazobactam 3 100 .375 gm In Sodium Chloride 0.9% 100 ml @ 25 mls/hr IVPB Q8H [facility] Rx#: [id number] Oral 240 Output: Chest Tube Drainage 340 Pleural Catheter Right 340 Upper Posterior Chest Urine 500 415 Other: Voiding Method Urinal Urinal - Exam CONSTITUTIONAL: Appears comfortable, cooperative, no acute distress RESPIRATORY: Lungs sounds diminished bilaterally, right greater than left. Respirations are symmetrical and nonlabored. Currently on 2 L nasal cannula with oxygen saturation 94%. Strong cough with yellow tenacious sputum. Achieving 1250 mL on his incentive spirometry with encouragement. CARDIOVASCULAR: S1, S2 present. Regular rate and rhythm, sinus rhythm on telemetry, heart rate 82 bpm. Palpable peripheral pulses bilaterally. +2 edema to his bilateral lower extremities. No calf pain or tenderness noted. Knee- high NIDHI hose in place to his bilateral lower extremities. GASTROINTESTINAL: Abdomen soft, nontender, nondistended. Active bowel sounds present 4 quadrants. Tolerating diet. Bowel movement 06/10/2023. GENITOURINARY: Continues to void. INTEGUMENTARY: Skin is warm and dry, no clubbing or cyanosis is present. NEUROLOGIC: Cranial nerves II through XII intact, no focal deficits. MUSKULOSKELETAL: Able to move all extremities, strength equal bilaterally, generalized weakness. PSYCHIATRIC: Alert and oriented to person place and time, appropriate affect, intact judgment and insight. INVASIVE LINES AND TUBES: Right pleural pigtail catheter present and connected to wall suction, no air leak present. Right pleural pigtail catheter with 250 mL thin serosanguineous drainage in the last 24 hours. - Allied health notes Allied health notes reviewed: nursing - Labs CBC & Chem 7: 06/11/23 07:26 06/11/23 07:26 Labs: Abnormal Lab Results - Last 24 Hours (Table) 06/10/23 06/10/23 06/10/23 Range/Units 09:00 09:00 11:44 Neutrophils # 7.8 H (1.3-7.7) k/uL Sodium 135 L (137-145) mmol/L Glucose 163 H (74-99) mg/dL POC Glucose (mg/dL) 154 H (70-110) mg/dL Calcium 8.2 L (8.4-10.2) mg/dL 06/10/23 Range/Units 20:18 Neutrophils # (1.3-7.7) k/uL Sodium (137-145) mmol/L Glucose (74-99) mg/dL POC Glucose (mg/dL) 189 H (70-110) mg/dL Calcium (8.4-10.2) mg/dL Microbiology - Last 24 Hours (Table) 06/06/23 11:00 Gram Stain - Final Pleural Fluid Body Fluid Culture - Final - Imaging and Cardiology Chest x-ray: report reviewed, image reviewed Assessment and Plan Assessment: Right-sided empyema secondary to Shadi negative pneumonia, sputum cultures positive for pseudomonas aeruginosa, Serratia marcescens and Coreybacterium striatum, status post right pigtail catheter placement by interventional radiology Shortness of breath secondary to above New-onset paroxysmal atrial fibrillation, currently sinus rhythm Acute on chronic hypoxemic respiratory failure, on 2 L of oxygen chronically as an outpatient Leukocytosis, lactic acidosis present on admission History of coronary artery disease status post PCI 3 Hypertension Hyperlipidemia Diabetes COPD, with recent hospitalization for exacerbation of COPD on 05/25/2023 Remote history of tobacco dependence Plan: Per the cardiothoracic surgery standpoint the right pleural pigtail catheter can be removed today. Continue to monitor daily chest x-rays. Continue incentive spirometry and encourage use 10 times every hour while awake. Wean oxygen as tolerated, bronchodilator management per pulmonary/critical care medicine. Increase activity as tolerated. Physical therapy and occupational therapy following. GI and DVT prophylaxis, NIDHI hose and SCDs ordered. Medical management other comorbidities per primary care service, cardiology and pulmonary medicine. Pain control per Court when necessary orders. Antibiotic management per pulmonary/critical care medicine, sputum culture showing pseudomonas aeruginosa, Serratia marcescens and Coreybacterium striatum, he is currently on Zosyn for IV antibiotic coverage. Continue Mucinex 1200 mg by mouth twice a day More recommendations to follow based on patient's clinical course. Time with Patient: Less than 30
--- NOTE | 2023-06-11 13:30 | P.PN ---
Subjective HISTORY OF PRESENT ILLNESS: This is a 77-year-old male with a past medical history significant for paroxysmal atrial fibrillation, GI bleed, COPD, hypertension, hyperlipidemia, and coronary artery disease with previous stenting. Patient used to follow in the office with Dr. Beltran but has not been seen since 2018. 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 We have been asked to see the patient in consultation for A. fib with RVR. Patient examined at the bedside in the emergency room. Patient states he presented to the hospital for chief complaint of shortness of breath. He states he has been feeling short of breath for the past few days and has noticed increased lower extremity edema. He denies any chest pain or pressure. The patient was found to be hypoxic. He was placed on BiPAP and remains on BiPAP at the time of examination. Patient initially was in sinus mechanism. However he is in A. fib with RVR at the time of examination. He was started on IV Cardizem which is infusing at 7.5 mg an hour. He is hypotensive at the time of examination with a blood pressure in the 80s90s. * EKG reveals sinus tachycardia. Bedside telemetry reveals A. fib with RVR * Chest xray there is pleural fluid collection right lower hemithorax measuring up to 5 cm thick with adjacent right basilar atelectasis or pneumonia * Chest CT: Right mid lower lobe compressive atelectasis versus pneumonia adjace nt to pleural effusion. Significant increase in size of right pleural effusion measuring 4.5 cm laterally and 5 cm subpulmonic. Possibly partially loculated. [id number] emphysematous changes in the lung. No evidence of pulmonary embolism or aortic aneurysm * Laboratory data: W BC 19.1. Hemoglobin 16.0. Platelet count 308. Sodium 136. Potassium 4.9. BUN 31. Creatinine 1.47. Lactic acid 2.4. Repeat 1.4. AST 74. ALT 51. Troponin negative 1. ProBNP 477. * Most recent echocardiogram obtained in November 2021 revealing ejection fraction 55%, mild MR, mild TR * Cardiac catheterization history: 2008 with stenting of the LAD and RCA 06/11/2023 Patient examined this morning at the bedside. Patient currently denies chest pain or pressure. He denies shortness of breath. Patient continues to have right-sided pigtail catheter. He did undergo lytic therapy yesterday. CT surgery is following. Telemetry reveals sinus mechanism. Vital signs are stable. Blood pressure 111/72. Procardia room completed revealing ejection fraction 40-45%, mild MR, mild TR PHYSICAL EXAM: VITAL SIGNS: Reviewed. GENERAL: Well-developed in no acute distress. HEENT: Head is normocephalic. Pupils are equal, round. Sclerae anicteric. Mucous membranes of the mouth are moist. Neck supple. No JVD or thyromegaly LUNGS: Respirations even and unlabored. Lungs with crackles at right lower base HEART: Regular rate and rhythm. S1 and S2 heard. ABDOMEN: Soft. Nondistended. Nontender. EXTREMITIES: Normal range of motion. No clubbing or cyanosis. Peripheral p ulses intact. Trace bilateral lower extremity edema NEUROLOGIC: Awake and alert. Oriented x 3. ASSESSMENT: Shortness of breath Pneumonia Right-sided empyema, status post pigtail catheter insertion Paroxysmal atrial fibrillation with RVR Hypotension Acute COPD exacerbation Acute heart failure exacerbation with preserved EF Acute on chronic hypoxic respiratory failure Coronary artery disease with previous stenting of the RCA and LAD, 2008 Mildly elevated liver enzymes Leukocytosis Acute kidney injury PLAN: Continue current cardiac medications Increase atorvastatin to [address] surgery is following for right-sided pigtail catheter Further recommendations pending patient's course Nurse practitioner note has been reviewed by physician. Signing provider agrees with the documented findings, assessment, and plan of care. Objective - Vital Signs Vital signs: Vital Signs Temp 97.5 F L 06/11/23 12:22 Pulse 70 06/11/23 12:22 Resp 18 06/11/23 12:22 BP 98/64 06/11/23 12:22 Pulse Ox 92 L 06/11/23 12:22 FiO2 60 06/05/23 05:07 Intake & Output 06/10/23 06/11/23 06/11/23 18:59 06:59 18:59 Intake Total 340 420 Output Total 500 755 5 Balance -160 -755 415 Weight 106 kg 106.1 kg Intake: Intake, IV Titration 100 Amount Piperacillin-Tazobactam 3 100 .375 gm In Sodium Chloride 0.9% 100 ml @ 25 mls/hr IVPB Q8H [facility] Rx#: [id number] Oral 240 420 Output: Chest Tube Drainage 340 5 Pleural Catheter Right 340 5 Upper Posterior Chest Urine 500 415 Other: Voiding Method Urinal Urinal Urinal - Labs CBC & Chem 7: 06/11/23 07:26 06/11/23 07:26 Labs: Abnormal Lab Results - Last 24 Hours (Table) 06/10/23 06/11/23 06/11/23 Range/Units 20:18 07:26 11:48 POC Glucose (mg/dL) 189 H 136 H (70-110) mg/dL ALT 54 H (4-49) U/L Total Protein 5.5 L (6.3-8.2) g/dL Albumin 2.7 L (3.5-5.0) g/dL Microbiology - Last 24 Hours (Table) 06/06/23 11:00 Gram Stain - Final Pleural Fluid Body Fluid Culture - Final
--- NOTE | 2023-06-11 15:33 | P.PN ---
Subjective Progress Note Date: 06/11/23 Principal diagnosis: Right lung empyema On 06/04/2023, I am seeing the patient in follow-up regarding shortness of breath. The patient was found to be in atrial fibrillation with rapid ventricular response and the patient also was found to be in heart failure with a right-sided pleural effusion. The patient continued to have increased lower extremity edema. The patient was seen by cardiology. The patient was switched to oral amiodarone and beta-blockers. Echocardiogram was also done on 06/02/2023 and echo showed a left ventricular ejection fraction of 40 to 45%. RV was not adequately visualized. There was a technically difficult study to evaluate. CT of the chest that was done at time of admission showed right mid lower lobe compressive atelectasis. Significant increase in the size of the right-sided pleural effusion compared to the earlier study that was done on 05/23/2023. No evidence of any pulm embolism. There was some mild to moderate emphysematous changes in the background. Ultrasound of the chest was also done on 06/03/2023 and the patient was found to have a complex right-sided pleural effusion measuring 4.3 cm in size. The patient's white cell count at 17.5. Hemoglobin is at 14.3. Viral screen has been negative. Troponins are negative. proBNP level is 477. Procalcitonin level is at 1.48. I reviewed the CAT scan of the chest and it is very much likely that the Is loculated right-sided effusion. There is an obvious worsening in the right-sided pleural effusion over this past few weeks as the CAT scan of the chest that was done on 05/23/2023 showed very small pleural effusion. Note that the patient is known to have COPD with chroni c hypoxic respiratory failure on 2 L of oxygen by nasal cannula. Other comorbid conditions include CAD with previous coronary stenting, previous history of COVID-19 infections, hypertension, hyperlipidemia, diabetes mellitus type 2, hyperuricemia/gout, antral gastritis and previous history of lower GI bleed secondary to hemorrhoids. The patient himself is still having pain along the right side of the chest. Suspend the night on a BiPAP and currently is on 4 L of oxygen by nasal cannula. Slightly improved compared to yesterday.The white cell cause of 60 with a hemoglobin of 15.3, BUN is at 46 with a creatinine of 1.2 and a sodium level is at 140 the white cell count is slightly improved c ompared to yesterday. Pro-calcitonin level is at 1.48. 06/09/2023, the patient is being seen for a follow-up. The patient is doing well. No specific complaints. Output from the pigtail catheter has been in the order of 400 mL over the past 24 hours. As such, the output is improved and the patient is receiving daily alteplase regarding his right lung empyema. A follow-up CAT scan of the chest was done today and the CAT scan showed very limited loculated right-sided pleural effusion. Patient has background emphysema as noted. No chest pain. No pleurisy. Remains on 2 L O2 by nasal cannula. The patient is in sinus rhythm and he is hemodynamically stable. He was started on anticoagulation with Eliquis. 06/10/2023, the patient has produced approximately 350 mL of fluid from the pig tail catheter. The fluid is nonpurulent and the patient is going to receive another dose of alteplase today. Chest x-ray showing some volume loss and area of consolidation of the right lung. Otherwise, clinically the patient is doing well. No fever or chills. No signs of any septicemia. The patient is currently on 2 L of oxygen by nasal cannula with pulse ox of 94%. The white cell count of 9.4 with a hemoglobin 14.7. BUN is 11 and a creatinine of 1.0 and a sodium level of 135. The pleural fluid cultures are negative as collected from the empyema from the right lung. Lites echoes at 9.4 coming was 14.7 and a platelet count of 302. BUN 11 creatinine of 1 and sodium levels is 135. Patient was reevaluated today on 06/11/23, continues to have pigtail catheter in place, continues to have nonpurulent drainage from his right pleural space, to 50 ML of serosanguineous drainage noted in the last 24 hours. Patient received his last dose of alteplase/door days on 06/10/23, cardiothoracic surgery is recommending removing the right pleural pigtail catheter. In the meantime the patient remains on antibiotics for his empyema. Chest x-ray is showing improvement, right exterior pleural catheter remains in place. There is some associated atelectasis, no evidence of pneumothorax. Fluid from the pleural space has been negative however sputum has been positive for Pseudomonas Serratia corynebacterium striatum patient remains on Zosyn Objective - Vital Signs Vital signs: Vital Signs Temp 97.5 F L 06/11/23 12:22 Pulse 70 06/11/23 12:22 Resp 18 06/11/23 12:22 BP 98/64 06/11/23 12:22 Pulse Ox 92 L 06/11/23 12:22 FiO2 60 06/05/23 05:07 Intake & Output 06/10/23 06/11/23 06/11/23 18:59 06:59 18:59 Intake Total 340 840 Output Total 500 755 5 Balance -160 -755 835 Weight 106 kg 106.1 kg Intake: Intake, IV Titration 100 Amount Piperacillin-Tazobactam 3 100 .375 gm In Sodium Chloride 0.9% 100 ml @ 25 mls/hr IVPB Q8H [facility] Rx#: [id number] Oral 240 840 Output: Chest Tube Drainage 340 5 Pleural Catheter Right 340 5 Upper Posterior Chest Urine 500 415 Other: Voiding Method Urinal Urinal Urinal - Exam Physical Exam: Revealed a 77-year-old white male in no distress Head: Atraumatic, normocephalic. HEENT:[Neck is supple.] [No neck masses.] [No thyromegaly.] [No JVD.] Chest: [Crackles and rhonchi noted bilaterally especially at the right base, right pigtail catheter is also noted. Cardiac Exam: [Normal S1 and S2, no S3 gallop, no murmur.] Abdomen: [Soft, nontender, no megaly, no rebound, no guarding, normal bowel sounds.] Extremities: [No clubbing, no edema, no cyanosis.] Neurological Exam: [No focal neurologic deficit.] Alert and oriented 3 Psychiatric: Normal mood affect and normal mental status examination. HEENT: No rashes - Labs CBC & Chem 7: 06/11/23 07:26 06/11/23 07:26 Labs: Abnormal Lab Results - Last 24 Hours (Table) 06/10/23 06/11/23 06/11/23 Range/Units 20:18 07:26 11:48 POC Glucose (mg/dL) 189 H 136 H (70-110) mg/dL ALT 54 H (4-49) U/L Total Protein 5.5 L (6.3-8.2) g/dL Albumin 2.7 L (3.5-5.0) g/dL Microbiology - Last 24 Hours (Table) 06/06/23 11:00 Gram Stain - Final Pleural Fluid Body Fluid Culture - Final Assessment and Plan Assessment: Impression: Right lung empyema secondary to gram-negative pneumonia and the sputum cultures positive for Pseudomonas and Serratia. The patient is post pigtail catheter insertion. Right lower lobe pneumonia with secondary empyema with sputum showing Pseudomonas and Serratia, susceptible to Zosyn Shortness of breath, likely secondary to above, currently off the BiPAP and the patient is currently on 4 L of oxygen by nasal cannula Acute on chronic hypoxic respiratory failure currently on 2 L, typically on 2 L at home A-fib/RVR , rate controlled and the patient is currently on oral amiodarone and metoprolol. 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
[2023-06-11 16:20] LABS: Glucose,Whole Blood 151 mg/dL (70-110)
--- NOTE | 2023-06-11 19:29 | P.PN ---
Subjective Progress Note Date: 06/11/23 This is a pleasant 77 years old male with multiple medical problems including COPD and Violetta asif. Patient was recently discharged from the hospital for acute COPD exacerbation Presents because of dyspnea requiring BiPAP on admission, compared to home dose of 2 L/m for his chronic hypoxic respiratory failure Patient is awake alert, feels generally weak, CLIENT CARE SPECIALIST come to K through his BiPAP mask. Patient says that his breathing was improved after discharge but then started getting gradually worse over the last week or so. Associated with right lower quadrant of chest pain about 10/10 on admission, increase by breathing, for a few days, associated with yellow brown coughing and phlegm His legs are significantly swollen Currently he is on BiPAP 12/5 and FiO2 of 60% Patient denies change in urine or bowel habits. He feels little dizzy but no headache weakness or numbness. He denies smoking or illicit drugs, he drinks alcohol occasionally. Labs and vitals reviewed Currently he is mildly tachypneic and tachycardic with heart rate around 140 He has leukocytosis of 19.1. Creatinine elevated 1.47 compared to baseline of 1.1-0.9. Sodium 136, liver enzymes might be elevated. Temperature 97.3 and INR is unremarkable. This is Influenza A and type B, RSV, SARS (coronavirus) are and detected proBNP 477, t roponin is negative less than 0.03. Troponin is -0.03 ProBNP is 4677 CTA of the chest is negative for pulmonary embolism with right lower lobe atelectasis versus pneumonia with a right pleural effusion 4.5 cm with emphysematous changes 06/03/2023 Patient looks more relaxed more awake His breathing is better His on BiPAP with setting of 12/5 and FiO2 60% Had some minimal discomfort on the right side of the abdomen, KUB is negative patient states he has normal bowel movement we wanted to rule out ileus. Discussed patient is unusual for him Also patient was found to have loculated right pleural effusion secondary to pneumonia and is currently on Zosyn. Physical dictated also by Violetta asif and tachycardia and currently placed on amiodarone and aspirin 81 mg by offal trimmer 06/04/2023 Patient breathing is improving slowly and gradually Patient STILL uncontrolled and cardiology following closely, he is currently on IV Lasix twice daily as well as beta mac and amiodarone 400 mg twice daily. Aldactone 12.5 and an entresto was added today by offal trimmer Abdomen that is improving breathing, history using the BiPAP on and off. His tachycardic with a rate 137 this morning Leukocytosis improving down to 16k, , creatinine stable at 1.2 on his sputum culture is growing Pseudomonas and gram-negative bacilli Patient currently covered with Zithromax and Zosyn Consult interventional radiology for possible aspiration of a limited right pleural effusion, otherwise may consider pigtail placement He remains on IV Lasix 40 mg twice daily. Keep monitoring creatinine 06/05/2023 Patient is seen in follow-up today with cardiology and pulmonary following. Interventional radiology consulted with concerns of right pleural effusion with possible loculation and was scheduled the have possible aspiration or pigtail catheter although patient had increased heart rate in the 150s and in atrial fi brillation with RVR. Patient was placed back on Cardizem with cardiology making adjustments to medications. Patient is afebrile and denies worsening shortness of breath although continues to have shortness of breath and maintained on 4 L via nasal cannula. Patient has not required BiPAP. Patient is extremely weak and encouraged increased activity as tolerated and sitting up in the chair more often. Elevate lower extremities and continue with Eloy wraps from the toes up to the knees. Patient was continued on IV Lasix twice daily although clinically appears dry and will hold Lasix for now and follow up on repeat labs. Interventional radiology to reevaluate once heart rate is better controlled. 06/06/2023 Patient is seen in follow-up this morning scheduled to undergo right chest wall catheter placement for continued pleural effusion that appears loculated. Pulmonary along with cardiology following and heart rate is better controlled currently off Cardizem and will continue on telemetry monitoring. Patient continues on 4 L nasal cannula continues with shortness of breath and coughing. Patient is extremely weak recommend physical therapy daily. CT surgery being consulted for possible TPA administration in the catheter. 06/07/2023 Patient is seen and evaluated in follow-up this morning with multiple medical consultations following including pulmonary, cardiology, and CT surgery. Patient is status post TPA administration in the pigtail catheter day to and has drained over 1.4 L of purulent drainage. Culture has been sent and pending at this time. Patient is continued on IV Zosyn and will continue for now. Patient continues on 4 L via nasal cannula and continues to have lower extremity swelling and Lasix was on hold and is being started on Bumex and medications being adjusted including starting eliquis per cardiology recommendations. Patient is currently afebrile with no reported chest pain other than chest wall near the catheter. Patient reports shortness of breath persists although is improved from previous. Patient with lower extremity swelling and recommend NIDHI hose or compression stockings from the toes up to the knees and elevated while at rest. Patient continues to be weak with prolonged hospitalization will likely need ECF on discharge. 06/08/2023 Patient is seen in follow-up today with cardiothoracic surgery and pulmonary following. Patient is status post pigtail catheter placement on the right for loculated pleural effusion. Patient is maintained on antibiotics and awaiting cultures and has been receiving daily TPA administrations to the chest tube. Patient is on 4 L and continue to wean FiO2 as tolerated. Patient reports not eating much does not have much of an appetite and doesn't recall his last bowel movement. Will add bowel regimen along with Megace and encouraged oral intake. Patient with significant weakness will need ECF on discharge. Patient's legs continue to be swollen on lower extremities and does have NIDHI hose applied. Patient is continued on oral diuretic. 06/09. Patient seen and examined. Right pleural pigtail catheter remains in place. Draining serosanguineous purulent drainage with 350 mL output in the last 24 hours. No air leak is present. He did have alteplase/dornase pleural instillation yesterday through his pigtail catheter which was his third total dose since his pigtail catheter had been placed. Complaining of productive cough. Gets short of breath on exertion 06/10. Patient seen and examined. Labs this morning WBC 9.4, hemoglobin 12.7, sodium 135, potassium 3.5, BUN 11, creatinine 1. Denies any shortness of breath. Complaining of productive cough. Complaining of pain at the site of pigtail catheter 06/11/2023 Patient seen and evaluated in follow-up today with cardiothoracic surgery and pulmonary and cardiology following. Patient continues with right-sided pigtail catheter and okay per CT surgery as well as pulmonary to remove. Will consult interventional radiology for removal of pigtail catheter. Patient will transition to oral antibiotics on discharge. Patient with significant weakness with physical therapy recommending rehab and patient is agreeable. Case management following currently working on accepting ECF. Patient to continue with compression stockings bilateral lower extremities elevated while at rest. Lower extremity swelling is improving and continues with 2+ pitting pedal edema. Patient needs encouragement and increased activity as tolerated. Review of systems CONSTITUTIONAL: No fever, no malaise, no fatigue. HEENT: No recent visual problems or hearing problems. Denied any sore throat. CARDIOVASCULAR: No orthopnea, PND, no palpitations, no syncope. Respiratory: Reports of shortness of breath with exertion although no worse GASTROINTESTINAL: No diarrhea, no nausea, no vomiting, no abdominal pain. Normoactive bowel sounds. NEUROLOGICAL: No headaches, reports of generalized weakness, no numbness. reports continued lower extremity swelling but feels is improving Physical exam: GENERAL: The patient is alert and oriented x3, Well developed, well nourished. ill-appearing. Obese. HEENT: Pupils are round and equally reacting to light. EOMI. No scleral icterus. No conjunctival pallor. Normocephalic, atraumatic. No pharyngeal erythema. No thyromegaly. CARDIOVASCULAR: S1 and S2 present. No murmurs, rubs, or gallops. PULMONARY: Diminished breath sounds bilaterally, no wheezing , no crackles. Decreased breath sounds on the right Although improved. Right pigtail chest tube noted with serous drainage ABDOMEN: Soft, obese, nontender, nondistended, normoactive bowel sounds. No palpable organomegaly. MUSCULOSKELETAL: No joint swelling or deformity. EXTREMITIES: No cyanosis, clubbing, or pedal edema. Patient has some mild bilateral lower extremity edema noted 1+ pitting pedal, some improvement in marylou ma with compression stockings noted NEUROLOGICAL: Gross neurological examination did not reveal any focal deficits. Diffusely weak SKIN: No rashes. no petechiae. Assessment: Right lower lobe pneumonia associated with right pleural effusion 4.5 cm, it appears to be a loculated effusion, status post pigtail catheter placement on 06/06/2023 Empyema with gram-negative pneumonia, Pseudomonas Serratia in the sputum cultures, status post pigtail catheter placement, cultures from pigtail catheter are negative A. fib with RVR, present on admission, currently rate controlled and off Cardizem Acute kidney injury improving, possible elements of chronic kidney disease stage III Acute COPD exacerbation, improving Acute on chronic hypoxic respiratory failure, currently on 4 L and normally wears 2 L outpatient Obesity with BMI of 32.1. History of BPH Hypertension GI prophylaxis DVT prophylaxis Full code Plan: Patient is continued on IV Zosyn as sputum culture showed Pseudomonas with serratia and Corynebacterium striatum. Fluid cultures from pigtail catheter are negative Pulmonary along with cardiology following and interventional radiology following and has place pigtail catheter for continued right pleural effusion that appeared loculated CT surgery following and has instilled multiple doses of TPA in the chest tube and recommend removing. Pulmonary following as well and okay with removal and have consulted interventional radiology for pigtail catheter removal. Cardiology following and patient is off Cardizem and currently rate controlled with medication adjustments. Will follow-up on repeat labs PT/OT therapy following recommending rehab on discharge. Patient will need ECF on discharge as patient is significantly weak and has had prolonged hospitalization Patient continues with lower extremity swelling and continues with compression stockings and having improvements in the lower extremities although continues to have bilateral 2+ pedal edema noted. Encouraged elevating while at rest. Patient Is weak with case management following working on ECF that will accept t he patient and patient will also require insurance authorization. Wean FiO2 as tolerated. Patient currently on 4 L and has not required BiPAP The impression and plan of care has been dictated by Namita Chavarria, Nurse Practitioner as directed. Dr. Brianna MD I have performed a history and examination and MDM of this patient, discussed the same with the dictator, and agree with the dictator's assessment and plan as written ,documented as a scribe. Based on total visit time, I have performed more than 50% of the visit. Objective - Vital Signs Vital signs: Vital Signs Temp 97.5 F L 06/11/23 12:22 Pulse 70 06/11/23 12:22 Resp 18 06/11/23 12:22 BP 98/64 06/11/23 12:22 Pulse Ox 92 L 06/11/23 12:22 FiO2 60 06/05/23 05:07 Intake & Output 06/10/23 06/11/23 06/11/23 18:59 06:59 18:59 Intake Total 340 420 Output Total 500 755 5 Balance -160 -755 415 Weight 106 kg 106.1 kg Intake: Intake, IV Titration 100 Amount Piperacillin-Tazobactam 3 100 .375 gm In Sodium Chloride 0.9% 100 ml @ 25 mls/hr IVPB Q8H [facility] Rx#: [id number] Oral 240 420 Output: Chest Tube Drainage 340 5 Pleural Catheter Right 340 5 Upper Posterior Chest Urine 500 415 Other: Voiding Method Urinal Urinal Urinal - Labs CBC & Chem 7: 06/11/23 07:26 06/11/23 07:26 Labs: Abnormal Lab Results - Last 24 Hours (Table) 06/10/23 06/11/23 06/11/23 Range/Units 20:18 07:26 11:48 POC Glucose (mg/dL) 189 H 136 H (70-110) mg/dL ALT 54 H (4-49) U/L Total Protein 5.5 L (6.3-8.2) g/dL Albumin 2.7 L (3.5-5.0) g/dL Microbiology - Last 24 Hours (Table) 06/06/23 11:00 Gram Stain - Final Pleural Fluid Body Fluid Culture - Final
[2023-06-11 20:25] LABS: Glucose,Whole Blood 154 mg/dL (70-110)
[2023-06-11] MEDS: AMIODARONE 200 MG TAB PO SCH (20:37)
[2023-06-11] MEDS: ATORVASTATIN 40 MG TAB PO SCH (20:37)
[2023-06-12 05:57] LABS: Glucose,Whole Blood 110 mg/dL (70-110)
--- NOTE | 2023-06-12 07:45 | XR ---
EXAMINATION TYPE: XR chest 2V DATE OF EXAM: 06/12/2023 6:35 AM CLINICAL INDICATION:Male, 77 years old with history of Right empyema; [facility] COMPARISON: Chest radiographs from 06/11/2023. TECHNIQUE: XR chest 2V Frontal and lateral views of the chest. FINDINGS: Lungs/Pleura: Similar right blunting of the costophrenic angle with associated streaky atelectasis. F lattening of diaphragms with increased lucency along apices. There is no evidence of pleural effusion , focal consolidation, or pneumothorax. Pulmonary vascularity: Unremarkable. Heart/mediastinum: Cardiomediastinal silhouette is unremarkable. Musculoskeletal: No acute osseous pathology. IMPRESSION: 1. Similar right pleural effusion associated atelectasis. 2. COPD changes.
[2023-06-12 08:55] LABS: African American GFR (CKD) >90 (>60 ml/min/1.73 sqM); Anion Gap 6 mmol/L; Blood Urea Nitrogen 8 mg/dL (9-20); Calcium 8.4 mg/dL (8.4-10.2); Carbon Dioxide 29 mmol/L (22-30); Chloride 103 mmol/L (98-107); Glucose 126 mg/dL (74-99); Non-African American GFR(CKD) 84 (>60 ml/min/1.73 sqM); Sodium 138 mmol/L (137-145)
--- NOTE | 2023-06-12 11:16 | P.PN ---
Subjective HISTORY OF PRESENT ILLNESS: This is a 77-year-old male with a past medical history significant for paroxysmal atrial fibrillation, GI bleed, COPD, hypertension, hyperlipidemia, and coronary artery disease with previous stenting. Patient used to follow in the office with Dr. Beltran but has not been seen since 2018. He states he currently does not follow with a refrigeration installer. We have been asked to see the patient in consultation for A. fib with RVR. Patient examined at the bedside in the emergency room. Patient states he presented to the hospital for chief complaint of shortness of breath. He states he has been feeling short of breath for the past few days and has noticed increased lower extremity edema. He denies any chest pain or pressure. The patient was found to be hypoxic. He was placed on BiPAP and remains on BiPAP at the time of examination. Patient initially was in sinus mechanism. However he is in A. fib with RVR at the time of examination. He was started on IV Cardizem which is infusing at 7.5 mg an hour. He is hypotensive at the time of examination with a blood pressure in the 80s90s. * EKG reveals sinus tachycardia. Bedside telemetry reveals A. fib with RVR * Chest xray there is pleural fluid collection right lower hemithorax measuring up to 5 cm thick with adjacent right basilar atelectasis or pneumonia * Chest CT: Right mid lower lobe compressive atelectasis versus pneumonia adjace nt to pleural effusion. Significant increase in size of right pleural effusion measuring 4.5 cm laterally and 5 cm subpulmonic. Possibly partially loculated. [id number] emphysematous changes in the lung. No evidence of pulmonary embolism or aortic aneurysm * Laboratory data: W BC 19.1. Hemoglobin 16.0. Platelet count 308. Sodium 136. Potassium 4.9. BUN 31. Creatinine 1.47. Lactic acid 2.4. Repeat 1.4. AST 74. ALT 51. Troponin negative 1. ProBNP 477. * Most recent echocardiogram obtained in November 2021 revealing ejection fraction 55%, mild MR, mild TR * Cardiac catheterization history: 2008 with stenting of the LAD and RCA 06/11/2023 Patient examined this morning at the bedside. Patient currently denies chest pain or pressure. He denies shortness of breath. Patient continues to have right-sided pigtail catheter. He did undergo lytic therapy yesterday. CT surgery is following. Telemetry reveals sinus mechanism. Vital signs are stable. Blood pressure 111/72. Procardia room completed revealing ejection fraction 40-45%, mild MR, mild TR June 12, 2023 Patient examined this morning at the bedside. Patient denies chest pain or pressure. He denies shortness of breath. Patient pigtail catheter has been removed. He remains on oral diuretics. Vital signs are stable. PHYSICAL EXAM: VITAL SIGNS: Reviewed. GENERAL: Well-developed in no acute distress. HEENT: Head is normocephalic. Pupils are equal, round. Sclerae anicteric. Mucous membranes of the mouth are moist. Neck supple. No JVD or thyromegaly LUNGS: Respirations even and unlabored. Lungs with crackles at right lower base HEART: Regular rate and rhythm. S1 and S2 heard. ABDOMEN: Soft. Nondistended. Nontender. EXTREMITIES: Normal range of motion. No clubbing or cyanosis. Peripheral pulses intact. Trace bilateral lower extremity edema NEUROLOGIC: Awake and alert. Oriented x 3. ASSESSMENT: Shortness of breath Pneumonia Right-sided empyema, status post pigtail catheter insertion Paroxysmal atrial fibrillation with RVR Hypotension Acute COPD exacerbation Acute heart failure exacerbation with preserved EF Acute on chronic hypoxic respiratory failure Coronary artery disease with previous stenting of the RCA and LAD, 2008 Mildly elevated liver enzymes Leukocytosis Acute kidney injury PLAN: Continue current cardiac medications Patient is currently stable from a cardiac standpoint with no further inpatient recommendations We will sign off. Please reconsult if needed. Nurse practitioner note has been reviewed by physician. Signing provider agrees with the documented findings, assessment, and plan of care. Objective - Vital Signs Vital signs: Vital Signs Temp 97.8 F 06/12/23 08:35 Pulse 95 06/12/23 09:05 Resp 20 06/12/23 08:35 BP 98/57 06/12/23 08:35 Pulse Ox 95 06/12/23 08:52 FiO2 60 06/05/23 05:07 Intake & Output 06/11/23 06/12/23 06/12/23 18:59 06:59 18:59 Intake Total 1020 125 Output Total 125 500 Balance 895 -500 125 Weight 106.1 kg Intake: Oral 1020 125 Output: Chest Tube Drainage 0 Pleural Catheter Right 0 Upper Posterior Chest Urine 125 500 Other: Voiding Method Urinal Urinal Urinal # Voids 2 - Labs CBC & Chem 7: 06/11/23 07:26 06/12/23 07:50 Labs: Abnormal Lab Results - Last 24 Hours (Table) 06/11/23 06/11/23 06/11/23 Range/Units 11:48 16:16 20:16 BUN (9-20) mg/dL Glucose (74-99) mg/dL POC Glucose (mg/dL) 136 H 151 H 154 H (70-110) mg/dL 06/12/23 Range/Units 07:50 BUN 8 L (9-20) mg/dL Glucose 126 H (74-99) mg/dL POC Glucose (mg/dL) (70-110) mg/dL
[2023-06-12 12:07] LABS: Glucose,Whole Blood 136 mg/dL (70-110)
--- NOTE | 2023-06-12 13:56 | P.PN ---
Subjective Progress Note Date: 06/12/23 Principal diagnosis: Right lung empyema On 06/04/2023, I am seeing the patient in follow-up regarding shortness of breath. The patient was found to be in atrial fibrillation with rapid ventricular response and the patient also was found to be in heart failure with a right-sided pleural effusion. The patient continued to have increased lower extremity edema. The patient was seen by cardiology. The patient was switched to oral amiodarone and beta-blockers. Echocardiogram was also done on 06/02/2023 and echo showed a left ventricular ejection fraction of 40 to 45%. RV was not adequately visualized. There was a technically difficult study to evaluate. CT of the chest that was done at time of admission showed right mid lower lobe compressive atelectasis. Significant increase in the size of the right-sided pleural effusion compared to the earlier study that was done on 05/23/2023. No evidence of any pulm embolism. There was some mild to moderate emphysematous changes in the background. Ultrasound of the chest was also done on 06/03/2023 and the patient was found to have a complex right-sided pleural effusion measuring 4.3 cm in size. The patient's white cell count at 17.5. Hemoglobin is at 14.3. Viral screen has been negative. Troponins are negative. proBNP level is 477. Procalcitonin level is at 1.48. I reviewed the CAT scan of the chest and it is very much likely that the Is loculated right-sided effusion. There is an obvious worsening in the right-sided pleural effusion over this past few weeks as the CAT scan of the chest that was done on 05/23/2023 showed very small pleural effusion. Note that the patient is known to have COPD with chroni c hypoxic respiratory failure on 2 L of oxygen by nasal cannula. Other comorbid conditions include CAD with previous coronary stenting, previous history of COVID-19 infections, hypertension, hyperlipidemia, diabetes mellitus type 2, hyperuricemia/gout, antral gastritis and previous history of lower GI bleed secondary to hemorrhoids. The patient himself is still having pain along the right side of the chest. Suspend the night on a BiPAP and currently is on 4 L of oxygen by nasal cannula. Slightly improved compared to yesterday.The white cell cause of 60 with a hemoglobin of 15.3, BUN is at 46 with a creatinine of 1.2 and a sodium level is at 140 the white cell count is slightly improved c ompared to yesterday. Pro-calcitonin level is at 1.48. 06/09/2023, the patient is being seen for a follow-up. The patient is doing well. No specific complaints. Output from the pigtail catheter has been in the order of 400 mL over the past 24 hours. As such, the output is improved and the patient is receiving daily alteplase regarding his right lung empyema. A follow-up CAT scan of the chest was done today and the CAT scan showed very limited loculated right-sided pleural effusion. Patient has background emphysema as noted. No chest pain. No pleurisy. Remains on 2 L O2 by nasal cannula. The patient is in sinus rhythm and he is hemodynamically stable. He was started on anticoagulation with Eliquis. 06/10/2023, the patient has produced approximately 350 mL of fluid from the pig tail catheter. The fluid is nonpurulent and the patient is going to receive another dose of alteplase today. Chest x-ray showing some volume loss and area of consolidation of the right lung. Otherwise, clinically the patient is doing well. No fever or chills. No signs of any septicemia. The patient is currently on 2 L of oxygen by nasal cannula with pulse ox of 94%. The white cell count of 9.4 with a hemoglobin 14.7. BUN is 11 and a creatinine of 1.0 and a sodium level of 135. The pleural fluid cultures are negative as collected from the empyema from the right lung. Lites echoes at 9.4 coming was 14.7 and a platelet count of 302. BUN 11 creatinine of 1 and sodium levels is 135. Patient was reevaluated today on 06/11/23, continues to have pigtail catheter in place, continues to have nonpurulent drainage from his right pleural space, to 50 ML of serosanguineous drainage noted in the last 24 hours. Patient received his last dose of alteplase/door days on 06/10/23, cardiothoracic surgery is recommending removing the right pleural pigtail catheter. In the meantime the patient remains on antibiotics for his empyema. Chest x-ray is showing improvement, right exterior pleural catheter remains in place. There is some associated atelectasis, no evidence of pneumothorax. Fluid from the pleural space has been negative however sputum has been positive for Pseudomonas Serratia corynebacterium striatum patient remains on Zosyn Reevaluated today on 06/12/2023, patient seems to be doing better today, not in any distress, relatively asymptomatic. His pigtail catheter was removed yesterday, and the patient is now mostly on antibiotics for presumptive empyema. Pleural fluid remain negative, patient did have positive sputum cultures. And that is being addressed accordingly. Outpatient basis, patient may benefit from treatment with ciprofloxacin for 10 days when the patient is discharged. Presently the patient is receiving Zosyn Objective - Vital Signs Vital signs: Vital Signs Temp 97.8 F 06/12/23 08:35 Pulse 69 06/12/23 12:11 Resp 18 06/12/23 12:11 BP 117/79 06/12/23 12:11 Pulse Ox 95 06/12/23 12:11 FiO2 60 06/05/23 05:07 Intake & Output 06/11/23 06/12/23 06/12/23 18:59 06:59 18:59 Intake Total 1020 483 Output Total 125 500 400 Balance 895 -500 83 Weight 106.1 kg 106.1 kg Intake: Oral 1020 483 Output: Chest Tube Drainage 0 Pleural Catheter Right 0 Upper Posterior Chest Urine 125 500 400 Other: Voiding Method Urinal Urinal Urinal # Voids 2 1 - Exam Physical Exam: Revealed a 77-year-old white male in no distress Head: Atraumatic, normocephalic. HEENT:[Neck is supple.] [No neck masses.] [No thyromegaly.] [No JVD.] Chest: [Diminished breath sounds at the bases with crackles at the right base. Cardiac Exam: [Normal S1 and S2, no S3 gallop, no murmur.] Abdomen: [Soft, nontender, no megaly, no rebound, no guarding, normal bowel sounds.] Extremities: [No clubbing, no edema, no cyanosis.] Neurological Exam: [No focal neurologic deficit.] Alert and oriented 3 Psychiatric: Normal mood affect and normal mental status examination. HEENT: No rashes - Labs CBC & Chem 7: 06/11/23 07:26 06/12/23 07:50 Labs: Abnormal Lab Results - Last 24 Hours (Table) 06/11/23 06/11/23 06/12/23 Range/Units 16:16 20:16 07:50 BUN 8 L (9-20) mg/dL Glucose 126 H (74-99) mg/dL POC Glucose (mg/dL) 151 H 154 H (70-110) mg/dL 06/12/23 Range/Units 12:05 BUN (9-20) mg/dL Glucose (74-99) mg/dL POC Glucose (mg/dL) 136 H (70-110) mg/dL Assessment and Plan Assessment: Impression: Right lung empyema secondary to gram-negative pneumonia and the sputum cultures positive for Pseudomonas and Serratia. The patient is post pigtail catheter insertion. Removed on 06/11/2023 Right lower lobe pneumonia with secondary empyema with sputum showing Pseudomonas and Serratia, susceptible to Zosyn Shortness of breath, likely secondary to above, currently off the BiPAP and the patient is currently on 4 L of oxygen by nasal cannula Acute on chronic hypoxic respiratory failure currently on 2 L, typically on 2 L at home A-fib/RVR , rate controlled and the patient is currently on oral amiodarone and metoprolol. 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 Continue eliquis Continue bronchodilators Continue oxygen and titrate accordingly Consider discharge planning in the next 24 hours and outpatient follow-up Will follow Time with Patient: Less than 30
[2023-06-12 16:33] LABS: Glucose,Whole Blood 146 mg/dL (70-110)
--- NOTE | 2023-06-12 17:45 | P.PN ---
Subjective Progress Note Date: 06/12/23 Principal diagnosis: Right-sided empyema, shortness of breath on admission. Past medical history significant for coronary artery disease status post PCI 3, hypertension, hyperlipidemia, diabetes, COPD with chronic hypoxemic respiratory failure and 2 L nasal cannula at home and previous tobacco dependence, recently hospitalized for COPD exacerbation and discharged 05/25/2023. Status post day #[address] guided right pigtail chest tube insertion by interventional radiology The patient was seen and examined in follow-up today 06/12/2023 at his bedside on the third floor cardiac stepdown unit. He is sitting up to the bedside chair, is awake, alert, oriented 3 and is in no acute distress. Oxygen saturations are 95% on 2 L nasal cannula and he is achieving around 5703-1150 mL on his incentive spirometry with encouragement. He denies any complaints of pain or shortness of breath at this time. The right chest pigtail catheter was removed without incident yesterday 06/11/2023. He was treated with 5 total doses of alteplase/dornase pleural instillation per his pigtail catheter. He remains on Zosyn for antibiotic coverage as his Sputum culture showed pseudomonas aeruginosa, Serratia marcescens and Coreybacterium striatum. Pleural fluid Gram stain shows no growth after 4 days. He has been afebrile in the last 24 hours. Chest x-ray results reviewed. Objective - Vital Signs Vital signs: Vital Signs Temp 97.8 F 06/12/23 08:35 Pulse 69 06/12/23 12:11 Resp 18 06/12/23 12:11 BP 117/79 06/12/23 12:11 Pulse Ox 95 06/12/23 12:11 FiO2 60 06/05/23 05:07 Intake & Output 06/11/23 06/12/23 06/12/23 18:59 06:59 18:59 Intake Total 1020 483 Output Total 125 500 650 Balance 895 -500 -167 Weight 106.1 kg 106.1 kg Intake: Oral 1020 483 Output: Chest Tube Drainage 0 Pleural Catheter Right 0 Upper Posterior Chest Urine 125 500 650 Other: Voiding Method Urinal Urinal Urinal # Voids 2 1 - Exam CONSTITUTIONAL: Appears comfortable, cooperative, no acute distress RESPIRATORY: Lungs sounds diminished bilaterally, right greater than left. Respirations are symmetrical and nonlabored. Currently on 2 L nasal cannula with oxygen saturation 95%. Strong cough with muñiz tenacious sputum. Achieving 0424-1497 mL on his incentive spirometry with encouragement. CARDIOVASCULAR: S1, S2 present. Regular rate and rhythm, sinus rhythm on telemetry, heart rate 95 bpm. Palpable peripheral pulses bilaterally. +2 edema to his bilateral lower extremities. No calf pain or tenderness noted. Knee- high NIDHI hose in place to his bilateral lower extremities. GASTROINTESTINAL: Abdomen soft, nontender, nondistended. Active bowel sounds present 4 quadrants. Tolerating diet. Bowel movement 06/10/2023. GENITOURINARY: Continues to void. INTEGUMENTARY: Skin is warm and dry, no clubbing or cyanosis is present. NEUROLOGIC: Cranial nerves II through XII intact, no focal deficits. MUSKULOSKELETAL: Able to move all extremities, strength equal bilaterally, gen eralized weakness. PSYCHIATRIC: Alert and oriented to person place and time, appropriate affect, intact judgment and insight. - Allied health notes Allied health notes reviewed: nursing - Labs CBC & Chem 7: 06/11/23 07:26 06/12/23 07:50 Labs: Abnormal Lab Results - Last 24 Hours (Table) 06/11/23 06/11/23 06/12/23 Range/Units 16:16 20:16 07:50 BUN 8 L (9-20) mg/dL Glucose 126 H (74-99) mg/dL POC Glucose (mg/dL) 151 H 154 H (70-110) mg/dL 06/12/23 Range/Units 12:05 BUN (9-20) mg/dL Glucose (74-99) mg/dL POC Glucose (mg/dL) 136 H (70-110) mg/dL - Imaging and Cardiology Chest x-ray: report reviewed, image reviewed Assessment and Plan Assessment: Right-sided empyema secondary to sputum cultures positive for pseudomonas aeruginosa, Serratia marcescens and Coreybacterium striatum, status post right pigtail catheter placement by interventional radiology Shortness of breath secondary to above New-onset paroxysmal atrial fibrillation, currently sinus rhythm Acute on chronic hypoxemic respiratory failure, on 2 L of oxygen chronically as an outpatient Leukocytosis, lactic acidosis present on admission History of coronary artery disease status post PCI 3 Hypertension Hyperlipidemia Diabetes COPD, with recent hospitalization for exacerbation of COPD on 05/25/2023 Remote history of tobacco dependence Plan: Per the cardiothoracic surgery standpoint the the patient can be discharged to rehab when okay with primary care service and other consultants. Continue to monitor daily chest x-rays. Continue incentive spirometry and encourage use 10 times every hour while awake. Wean oxygen as tolerated, bronchodilator management per pulmonary/critical care medicine. Increase activity as tolerated. Physical therapy and occupational therapy following. GI and DVT prophylaxis, NIDHI hose and SCDs ordered. Medical management other comorbidities per primary care service, cardiology and pulmonary medicine. Pain control per Court when necessary orders. Antibiotic management per pulmonary/critical care medicine, sputum culture showing pseudomonas aeruginosa, Serratia marcescens and Coreybacterium striatum, he is currently on Zosyn for IV antibiotic coverage. Continue Mucinex 1200 mg by mouth twice a day We will continue to follow the patient on an as-needed basis. Time with Patient: Less than 30
[2023-06-12 20:14] LABS: Glucose,Whole Blood 159 mg/dL (70-110)
[2023-06-13] MEDS ORDERED: polyethylene glycoL 3350 17 GM POWD.PACK PO PRN (04:06)
--- NOTE | 2023-06-13 04:12 | P.PN ---
Subjective Progress Note Date: 06/12/23 This is a pleasant 77 years old male with multiple medical problems including COPD and Violetta asif. 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 Patient says that his breathing was improved after discharge but then started getting gradually worse over the last week or so. Associated with right lower quadrant of chest pain about 10/10 on admission, increase by breathing, for a few days, associated with yellow brown coughing and phlegm His legs are significantly swollen Currently he is on BiPAP 12/5 and FiO2 of 60% Patient denies change in urine or bowel habits. He feels little dizzy but no headache weakness or numbness. He denies smoking or illicit drugs, he drinks alcohol occasionally. Labs and vitals reviewed Currently he is mildly tachypneic and tachycardic with heart rate around 140 He has leukocytosis of 19.1. Creatinine elevated 1.47 compared to baseline of 1.1-0.9. Sodium 136, liver enzymes might be elevated. Temperature 97.3 and INR is unremarkable. This is Influenza A and type B, RSV, SARS (coronavirus) are and detected proBNP 477, t roponin is negative less than 0.03. Troponin is -0.03 ProBNP is 4677 CTA of the chest is negative for pulmonary embolism with right lower lobe atelectasis versus pneumonia with a right pleural effusion 4.5 cm with emphysematous changes 06/03/2023 Patient looks more relaxed more awake His breathing is better His on BiPAP with setting of 12/5 and FiO2 60% Had some minimal discomfort on the right side of the abdomen, KUB is negative patient states he has normal bowel movement we wanted to rule out ileus. Discussed patient is unusual for him Also patient was found to have loculated right pleural effusion secondary to pneumonia and is currently on Zosyn. Physical dictated also by Violetta asif and tachycardia and currently placed on amiodarone and aspirin 81 mg by construction controller 06/04/2023 Patient breathing is improving slowly and gradually Patient STILL uncontrolled and cardiology following closely, he is currently on IV Lasix twice daily as well as beta mac and amiodarone 400 mg twice daily. Aldactone 12.5 and an entresto was added today by construction controller Abdomen that is improving breathing, history using the BiPAP on and off. His tachycardic with a rate 137 this morning Leukocytosis improving down to 16k, , creatinine stable at 1.2 on his sputum culture is growing Pseudomonas and gram-negative bacilli Patient currently covered with Zithromax and Zosyn Consult interventional radiology for possible aspiration of a limited right pleural effusion, otherwise may consider pigtail placement He remains on IV Lasix 40 mg twice daily. Keep monitoring creatinine 06/05/2023 Patient is seen in follow-up today with cardiology and pulmonary following. Interventional radiology consulted with concerns of right pleural effusion with possible loculation and was scheduled the have possible aspiration or pigtail catheter although patient had increased heart rate in the 150s and in atrial fi brillation with RVR. Patient was placed back on Cardizem with cardiology making adjustments to medications. Patient is afebrile and denies worsening shortness of breath although continues to have shortness of breath and maintained on 4 L via nasal cannula. Patient has not required BiPAP. Patient is extremely weak and encouraged increased activity as tolerated and sitting up in the chair more often. Elevate lower extremities and continue with Eloy wraps from the toes up to the knees. Patient was continued on IV Lasix twice daily although clinically appears dry and will hold Lasix for now and follow up on repeat labs. Interventional radiology to reevaluate once heart rate is better controlled. 06/06/2023 Patient is seen in follow-up this morning scheduled to undergo right chest wall catheter placement for continued pleural effusion that appears loculated. Pulmonary along with cardiology following and heart rate is better controlled currently off Cardizem and will continue on telemetry monitoring. Patient continues on 4 L nasal cannula continues with shortness of breath and coughing. Patient is extremely weak recommend physical therapy daily. CT surgery being consulted for possible TPA administration in the catheter. 06/07/2023 Patient is seen and evaluated in follow-up this morning with multiple medical consultations following including pulmonary, cardiology, and CT surgery. Patient is status post TPA administration in the pigtail catheter day to and has drained over 1.4 L of purulent drainage. Culture has been sent and pending at this time. Patient is continued on IV Zosyn and will continue for now. Patient continues on 4 L via nasal cannula and continues to have lower extremity swelling and Lasix was on hold and is being started on Bumex and medications being adjusted including starting eliquis per cardiology recommendations. Patient is currently afebrile with no reported chest pain other than chest wall near the catheter. Patient reports shortness of breath persists although is improved from previous. Patient with lower extremity swelling and recommend NIDHI hose or compression stockings from the toes up to the knees and elevated while at rest. Patient continues to be weak with prolonged hospitalization will likely need ECF on discharge. 06/08/2023 Patient is seen in follow-up today with cardiothoracic surgery and pulmonary following. Patient is status post pigtail catheter placement on the right for loculated pleural effusion. Patient is maintained on antibiotics and awaiting cultures and has been receiving daily TPA administrations to the chest tube. Patient is on 4 L and continue to wean FiO2 as tolerated. Patient reports not eating much does not have much of an appetite and doesn't recall his last bowel movement. Will add bowel regimen along with Megace and encouraged oral intake. Patient with significant weakness will need ECF on discharge. Patient's legs continue to be swollen on lower extremities and does have NIDHI hose applied. Patient is continued on oral diuretic. 06/09. Patient seen and examined. Right pleural pigtail catheter remains in place. Draining serosanguineous purulent drainage with 350 mL output in the last 24 hours. No air leak is present. He did have alteplase/dornase pleural instillation yesterday through his pigtail catheter which was his third total dose since his pigtail catheter had been placed. Complaining of productive cough. Gets short of breath on exertion 06/10. Patient seen and examined. Labs this morning WBC 9.4, hemoglobin 12.7, sodium 135, potassium 3.5, BUN 11, creatinine 1. Denies any shortness of breath. Complaining of productive cough. Complaining of pain at the site of pigtail catheter 06/11/2023 Patient seen and evaluated in follow-up today with cardiothoracic surgery and pulmonary and cardiology following. Patient continues with right-sided pigtail catheter and okay per CT surgery as well as pulmonary to remove. Will consult interventional radiology for removal of pigtail catheter. Patient will transition to oral antibiotics on discharge. Patient with significant weakness with physical therapy recommending rehab and patient is agreeable. Case management following currently working on accepting ECF. Patient to continue with compression stockings bilateral lower extremities elevated while at rest. Lower extremity swelling is improving and continues with 2+ pitting pedal edema. Patient needs encouragement and increased activity as tolerated. 06/12/2023 Patient is seen in follow-up today with CT surgery and pulmonary following. Patient is status post pigtail catheter placement with removal for loculated right pleural effusion. Cultures have remained negative and patient is maintained on Zosyn. Patient is currently on oral Bumex showing some improvements in lower extremity swelling and continues with compression sto ckings. Patient with significant weakness will need ECF on discharge. Patient has been accepted at [facility] pending insurance authorization approval. Case management following and is submitting for insurance authorization. Patient is currently afebrile with no reports of chest pain or shortness of breath that is worsened. Patient tolerating diet although reports continues to not have much of an appetite. Appetite stimulant was added. Encouraged to increase activity as tolerated and continued incentive spirometer use Review of systems CONSTITUTIONAL: No fever, no malaise, no fatigue. HEENT: No recent visual problems or hearing problems. Denied any sore throat. CARDIOVASCULAR: No orthopnea, PND, no palpitations, no syncope. Respiratory: Reports of shortness of breath with exertion but feels it is slightly improved GASTROINTESTINAL: No diarrhea, no nausea, no vomiting, no abdominal pain. Normoactive bowel sounds. NEUROLOGICAL: No headaches, reports of generalized weakness, no numbness. reports continued lower extremity swelling but feels is improving Physical exam: GENERAL: The patient is alert and oriented x3, Well developed, well nourished. ill-appearing. Obese. HEENT: Pupils are round and equally reacting to light. EOMI. No scleral icterus. No conjunctival pallor. Normocephalic, atraumatic. No pharyngeal erythema. No thyromegaly. CARDIOVASCULAR: S1 and S2 present. No murmurs, rubs, or gallops. PULMONARY: Diminished breath sounds bilaterally, no wheezing , no crackles. Decreased breath sounds on the right Although improved. Right pigtail chest tube noted with serous drainage ABDOMEN: Soft, obese, nontender, nondistended, normoactive bowel sounds. No palpable organomegaly. MUSCULOSKELETAL: No joint swelling or deformity. EXTREMITIES: No cyanosis, clubbing, or pedal edema. Patient has some mild bilateral lower extremity edema noted 1+ pitting pedal, some improvement in edema with compression stockings noted NEUROLOGICAL: Gross neurological examination did not reveal any focal deficits. Diffusely weak SKIN: No rashes. no petechiae. Assessment: Right lower lobe pneumonia associated with right pleural effusion 4.5 cm, it appears to be a loculated effusion, status post pigtail catheter placement on 06/06/2023 with removal of the catheter on 06/11/2023 Empyema with gram-negative pneumonia, Pseudomonas Serratia in the sputum cultures, status post pigtail catheter placement, cultures from pigtail catheter are negative A. fib with RVR, present on admission, currently rate controlled and off Cardizem Acute kidney injury improving, possible elements of chronic kidney disease stage III Acute COPD exacerbation, improving Acute on chronic hypoxic respiratory failure, currently on 4 L and normally wears 2 L outpatient Obesity with BMI of 32.1. Gait dysfunction with generalized weakness History of BPH Hypertension GI prophylaxis DVT prophylaxis Full code Plan: Patient is continued on IV Zosyn as sputum culture showed Pseudomonas with serratia and Corynebacterium striatum. Fluid cultures from pigtail catheter are negative Pulmonary and CT surgery following and patient is status post pigtail catheter removal. Patient to continue on IV antibiotics and will transition to oral antibiotics on discharge. Wean FiO2 as tolerated currently continued on 4 L. Encourage incentive spirometer use at least 10 times every hour while awake Cardiology following and patient is off Cardizem and currently rate controlled with medication adjustments. PT/OT therapy following recommending rehab on discharge. Patient will need ECF on discharge as patient is significantly weak and has had prolonged hospitalization. Case management following and has submitted for insurance authorization. [facility] authorization is obtained Patient continues with lower extremity swelling and continues with compression stockings and having improvements in the lower extremities although continues to have bilateral 2+ pedal edema noted. Encouraged elevating while at rest. Possible discharge in the next 24 to 48 hours The impression and plan of care has been dictated by Nurse Andre Prac titioner as directed. Dr. Brianna MD I have performed a history and examination and MDM of this patient, discussed the same with the dictator, and agree with the dictator's assessment and plan as written ,documented as a scribe. Based on total visit time, I have performed more than 50% of the visit. Objective - Vital Signs Vital signs: Vital Signs Temp 98.0 F 06/12/23 20:00 Pulse 72 06/13/23 03:23 Resp 18 06/13/23 03:23 BP 132/71 06/13/23 03:23 Pulse Ox 97 06/13/23 03:23 FiO2 60 06/05/23 05:07 Intake & Output 06/12/23 06/12/23 06/13/23 06:59 18:59 06:59 Intake Total 601 Output Total 500 650 550 Balance -500 -49 -550 Weight 106.1 kg 106.1 kg Intake: Oral 601 Output: Urine 500 650 550 Other: Voiding Method Urinal Urinal Urinal # Voids 1 - Labs CBC & Chem 7: 06/11/23 07:26 06/12/23 07:50 Labs: Abnormal Lab Results - Last 24 Hours (Table) 06/12/23 06/12/23 06/12/23 Range/Units 07:50 12:05 16:31 BUN 8 L (9-20) mg/dL Glucose 126 H (74-99) mg/dL POC Glucose (mg/dL) 136 H 146 H (70-110) mg/dL 06/12/23 Range/Units 19:58 BUN (9-20) mg/dL Glucose (74-99) mg/dL POC Glucose (mg/dL) 159 H (70-110) mg/dL
[2023-06-13 05:47] LABS: Glucose,Whole Blood 133 mg/dL (70-110)
[2023-06-13 11:34] LABS: Glucose,Whole Blood 154 mg/dL (70-110)
[2023-06-13] MEDS: IPRATROPIUM-ALBUTEROL 3 ML NEB INHALATION SCH (12:27)
--- NOTE | 2023-06-13 13:39 | P.PN ---
Subjective Progress Note Date: 06/13/23 Principal diagnosis: Right lung empyema On 06/04/2023, I am seeing the patient in follow-up regarding shortness of breath. The patient was found to be in atrial fibrillation with rapid ventricular response and the patient also was found to be in heart failure with a right-sided pleural effusion. The patient continued to have increased lower extremity edema. The patient was seen by cardiology. The patient was switched to oral amiodarone and beta-blockers. Echocardiogram was also done on 06/02/2023 and echo showed a left ventricular ejection fraction of 40 to 45%. RV was not adequately visualized. There was a technically difficult study to evaluate. CT of the chest that was done at time of admission showed right mid lower lobe compressive atelectasis. Significant increase in the size of the right-sided pleural effusion compared to the earlier study that was done on 05/23/2023. No evidence of any pulm embolism. There was some mild to moderate emphysematous changes in the background. Ultrasound of the chest was also done on 06/03/2023 and the patient was found to have a complex right-sided pleural effusion measuring 4.3 cm in size. The patient's white cell count at 17.5. Hemoglobin is at 14.3. Viral screen has been negative. Troponins are negative. proBNP level is 477. Procalcitonin level is at 1.48. I reviewed the CAT scan of the chest and it is very much likely that the Is loculated right-sided effusion. There is an obvious worsening in the right-sided pleural effusion over this past few weeks as the CAT scan of the chest that was done on 05/23/2023 showed very small pleural effusion. Note that the patient is known to have COPD with chroni c hypoxic respiratory failure on 2 L of oxygen by nasal cannula. Other comorbid conditions include CAD with previous coronary stenting, previous history of COVID-19 infections, hypertension, hyperlipidemia, diabetes mellitus type 2, hyperuricemia/gout, antral gastritis and previous history of lower GI bleed secondary to hemorrhoids. The patient himself is still having pain along the right side of the chest. Suspend the night on a BiPAP and currently is on 4 L of oxygen by nasal cannula. Slightly improved compared to yesterday.The white cell cause of 60 with a hemoglobin of 15.3, BUN is at 46 with a creatinine of 1.2 and a sodium level is at 140 the white cell count is slightly improved c ompared to yesterday. Pro-calcitonin level is at 1.48. 06/09/2023, the patient is being seen for a follow-up. The patient is doing well. No specific complaints. Output from the pigtail catheter has been in the order of 400 mL over the past 24 hours. As such, the output is improved and the patient is receiving daily alteplase regarding his right lung empyema. A follow-up CAT scan of the chest was done today and the CAT scan showed very limited loculated right-sided pleural effusion. Patient has background emphysema as noted. No chest pain. No pleurisy. Remains on 2 L O2 by nasal cannula. The patient is in sinus rhythm and he is hemodynamically stable. He was started on anticoagulation with Eliquis. 06/10/2023, the patient has produced approximately 350 mL of fluid from the pig tail catheter. The fluid is nonpurulent and the patient is going to receive another dose of alteplase today. Chest x-ray showing some volume loss and area of consolidation of the right lung. Otherwise, clinically the patient is doing well. No fever or chills. No signs of any septicemia. The patient is currently on 2 L of oxygen by nasal cannula with pulse ox of 94%. The white cell count of 9.4 with a hemoglobin 14.7. BUN is 11 and a creatinine of 1.0 and a sodium level of 135. The pleural fluid cultures are negative as collected from the empyema from the right lung. Lites echoes at 9.4 coming was 14.7 and a platelet count of 302. BUN 11 creatinine of 1 and sodium levels is 135. Patient was reevaluated today on 06/11/23, continues to have pigtail catheter in place, continues to have nonpurulent drainage from his right pleural space, to 50 ML of serosanguineous drainage noted in the last 24 hours. Patient received his last dose of alteplase/door days on 06/10/23, cardiothoracic surgery is recommending removing the right pleural pigtail catheter. In the meantime the patient remains on antibiotics for his empyema. Chest x-ray is showing improvement, right exterior pleural catheter remains in place. There is some associated atelectasis, no evidence of pneumothorax. Fluid from the pleural space has been negative however sputum has been positive for Pseudomonas Serratia corynebacterium striatum patient remains on Zosyn Reevaluated today on 06/12/2023, patient seems to be doing better today, not in any distress, relatively asymptomatic. His pigtail catheter was removed yesterday, and the patient is now mostly on antibiotics for presumptive empyema. Pleural fluid remain negative, patient did have positive sputum cultures. And that is being addressed accordingly. Outpatient basis, patient may benefit from treatment with ciprofloxacin for 10 days when the patient is discharged. Presently the patient is receiving Zosyn Reevaluate today on 06/13/2023, patient is doing well, relatively asymptomatic. Remains on antibiotics for his pneumonia and empyema/complicated pleural effusion, cultures from the pleural effusion have remained negative lung, but his sputum cultures have grown Serratia and have grown Pseudomonas. Patient could be transitioned to ciprofloxacin upon discharge. His pigtail catheter has been removed. Patient is being considered for placement in ECF Objective - Vital Signs Vital signs: Vital Signs Temp 97.5 F L 06/13/23 11:15 Pulse 80 06/13/23 12:37 Resp 18 06/13/23 11:15 BP 106/65 06/13/23 11:15 Pulse Ox 94 L 06/13/23 11:15 FiO2 60 06/05/23 05:07 Intake & Output 06/12/23 06/13/23 06/13/23 18:59 06:59 18:59 Intake Total 601 180 Output Total 650 950 125 Balance -49 -950 55 Weight 106.1 kg 105.3 kg Intake: Oral 601 180 Output: Urine 650 950 125 Other: Voiding Method Urinal Urinal Urinal # Voids 1 - Exam Physical Exam: Revealed a 77-year-old white male in no distress Head: Atraumatic, normocephalic. HEENT:[Neck is supple.] [No neck masses.] [No thyromegaly.] [No JVD.] Chest: [Diminished breath sounds at the bases with crackles at the right base. Cardiac Exam: [Normal S1 and S2, no S3 gallop, no murmur.] Abdomen: [Soft, nontender, no megaly, no rebound, no guarding, normal bowel sounds.] Extremities: [No clubbing, no edema, no cyanosis.] Neurological Exam: [No focal neurologic deficit.] Alert and oriented 3 Psychiatric: Normal mood affect and normal mental status examination. HEENT: No rashes - Labs CBC & Chem 7: 06/11/23 07:26 06/12/23 07:50 Labs: Abnormal Lab Results - Last 24 Hours (Table) 06/12/23 06/12/23 06/13/23 Range/Units 16:31 19:58 05:30 POC Glucose (mg/dL) 146 H 159 H 133 H (70-110) mg/dL 06/13/23 Range/Units 11:33 POC Glucose (mg/dL) 154 H (70-110) mg/dL Assessment and Plan Assessment: Impression: Right lung empyema secondary to gram-negative pneumonia and the sputum cultures positive for Pseudomonas and Serratia. The patient is post pigtail catheter insertion. Removed on 06/11/2023 Right lower lobe pneumonia with secondary empyema with sputum showing Pseudomonas and Serratia, susceptible to Zosyn Shortness of breath, likely secondary to above, currently off the BiPAP and the patient is currently on 4 L of oxygen by nasal cannula Acute on chronic hypoxic respiratory failure currently on 2 L, typically on 2 L at home A-fib/RVR , rate controlled and the patient is currently on oral amiodarone and metoprolol. 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 And Cipro should be given for 10 more days for Continue eliquis Continue bronchodilators Continue oxygen and titrate accordingly Discharge when bed is available in ECF Will follow Time with Patient: Less than 30
[2023-06-13 16:48] LABS: Glucose,Whole Blood 157 mg/dL (70-110)
[2023-06-13 20:29] LABS: Glucose,Whole Blood 184 mg/dL (70-110)
[2023-06-14 02:47] VITALS: RESP 18
--- NOTE | 2023-06-14 05:03 | P.PN ---
Subjective Progress Note Date: 06/13/23 This is a pleasant 77 years old male with multiple medical problems including COPD and Violetta asif. Patient was recently discharged from the hospital for acute COPD exacerbation Presents because of dyspnea requiring BiPAP on admission, compared to home dose of 2 L/m for his chronic hypoxic respiratory failure Patient is awake alert, feels generally weak, [employer] come to K through his BiPAP mask. Patient says that his breathing was improved after discharge but then started getting gradually worse over the last week or so. Associated with right lower quadrant of chest pain about 10/10 on admission, increase by breathing, for a few days, associated with yellow brown coughing and phlegm His legs are significantly swollen Currently he is on BiPAP 12/5 and FiO2 of 60% Patient denies change in urine or bowel habits. He feels little dizzy but no headache weakness or numbness. He denies smoking or illicit drugs, he drinks alcohol occasionally. Labs and vitals reviewed Currently he is mildly tachypneic and tachycardic with heart rate around 140 He has leukocytosis of 19.1. Creatinine elevated 1.47 compared to baseline of 1.1-0.9. Sodium 136, liver enzymes might be elevated. Temperature 97.3 and INR is unremarkable. This is Influenza A and type B, RSV, SARS (coronavirus) are and detected proBNP 477, t roponin is negative less than 0.03. Troponin is -0.03 ProBNP is 4677 CTA of the chest is negative for pulmonary embolism with right lower lobe atelectasis versus pneumonia with a right pleural effusion 4.5 cm with emphysematous changes 06/03/2023 Patient looks more relaxed more awake His breathing is better His on BiPAP with setting of 12/5 and FiO2 60% Had some minimal discomfort on the right side of the abdomen, KUB is negative patient states he has normal bowel movement we wanted to rule out ileus. Discussed patient is unusual for him Also patient was found to have loculated right pleural effusion secondary to pneumonia and is currently on Zosyn. Physical dictated also by Violetta asif and tachycardia and currently placed on amiodarone and aspirin 81 mg by used car renovator 06/04/2023 Patient breathing is improving slowly and gradually Patient STILL uncontrolled and cardiology following closely, he is currently on IV Lasix twice daily as well as beta mac and amiodarone 400 mg twice daily. Aldactone 12.5 and an entresto was added today by used car renovator Abdomen that is improving breathing, history using the BiPAP on and off. His tachycardic with a rate 137 this morning Leukocytosis improving down to 16k, , creatinine stable at 1.2 on his sputum culture is growing Pseudomonas and gram-negative bacilli Patient currently covered with Zithromax and Zosyn Consult interventional radiology for possible aspiration of a limited right pleural effusion, otherwise may consider pigtail placement He remains on IV Lasix 40 mg twice daily. Keep monitoring creatinine 06/05/2023 Patient is seen in follow-up today with cardiology and pulmonary following. Interventional radiology consulted with concerns of right pleural effusion with possible loculation and was scheduled the have possible aspiration or pigtail catheter although patient had increased heart rate in the 150s and in atrial fi brillation with RVR. Patient was placed back on Cardizem with cardiology making adjustments to medications. Patient is afebrile and denies worsening shortness of breath although continues to have shortness of breath and maintained on 4 L via nasal cannula. Patient has not required BiPAP. Patient is extremely weak and encouraged increased activity as tolerated and sitting up in the chair more often. Elevate lower extremities and continue with Eloy wraps from the toes up to the knees. Patient was continued on IV Lasix twice daily although clinically appears dry and will hold Lasix for now and follow up on repeat labs. Interventional radiology to reevaluate once heart rate is better controlled. 06/06/2023 Patient is seen in follow-up this morning scheduled to undergo right chest wall catheter placement for continued pleural effusion that appears loculated. Pulmonary along with cardiology following and heart rate is better controlled currently off Cardizem and will continue on telemetry monitoring. Patient continues on 4 L nasal cannula continues with shortness of breath and coughing. Patient is extremely weak recommend physical therapy daily. CT surgery being consulted for possible TPA administration in the catheter. 06/07/2023 Patient is seen and evaluated in follow-up this morning with multiple medical consultations following including pulmonary, cardiology, and CT surgery. Patient is status post TPA administration in the pigtail catheter day to and has drained over 1.4 L of purulent drainage. Culture has been sent and pending at this time. Patient is continued on IV Zosyn and will continue for now. Patient continues on 4 L via nasal cannula and continues to have lower extremity swelling and Lasix was on hold and is being started on Bumex and medications being adjusted including starting eliquis per cardiology recommendations. Patient is currently afebrile with no reported chest pain other than chest wall near the catheter. Patient reports shortness of breath persists although is improved from previous. Patient with lower extremity swelling and recommend NIDHI hose or compression stockings from the toes up to the knees and elevated while at rest. Patient continues to be weak with prolonged hospitalization will likely need ECF on discharge. 06/08/2023 Patient is seen in follow-up today with cardiothoracic surgery and pulmonary following. Patient is status post pigtail catheter placement on the right for loculated pleural effusion. Patient is maintained on antibiotics and awaiting cultures and has been receiving daily TPA administrations to the chest tube. Patient is on 4 L and continue to wean FiO2 as tolerated. Patient reports not eating much does not have much of an appetite and doesn't recall his last bowel movement. Will add bowel regimen along with Megace and encouraged oral intake. Patient with significant weakness will need ECF on discharge. Patient's legs continue to be swollen on lower extremities and does have NIDHI hose applied. Patient is continued on oral diuretic. 06/09. Patient seen and examined. Right pleural pigtail catheter remains in place. Draining serosanguineous purulent drainage with 350 mL output in the last 24 hours. No air leak is present. He did have alteplase/dornase pleural instillation yesterday through his pigtail catheter which was his third total dose since his pigtail catheter had been placed. Complaining of productive cough. Gets short of breath on exertion 06/10. Patient seen and examined. Labs this morning WBC 9.4, hemoglobin 12.7, sodium 135, potassium 3.5, BUN 11, creatinine 1. Denies any shortness of breath. Complaining of productive cough. Complaining of pain at the site of pigtail catheter 06/11/2023 Patient seen and evaluated in follow-up today with cardiothoracic surgery and pulmonary and cardiology following. Patient continues with right-sided pigtail catheter and okay per CT surgery as well as pulmonary to remove. Will consult interventional radiology for removal of pigtail catheter. Patient will transition to oral antibiotics on discharge. Patient with significant weakness with physical therapy recommending rehab and patient is agreeable. Case management following currently working on accepting ECF. Patient to continue with compression stockings bilateral lower extremities elevated while at rest. Lower extremity swelling is improving and continues with 2+ pitting pedal edema. Patient needs encouragement and increased activity as tolerated. 06/12/2023 Patient is seen in follow-up today with CT surgery and pulmonary following. Patient is status post pigtail catheter placement with removal for loculated right pleural effusion. Cultures have remained negative and patient is maintained on Zosyn. Patient is currently on oral Bumex showing some improvements in lower extremity swelling and continues with compression sto ckings. Patient with significant weakness will need ECF on discharge. Patient has been accepted at [facility] pending insurance authorization approval. Case management following and is submitting for insurance authorization. Patient is currently afebrile with no reports of chest pain or shortness of breath that is worsened. Patient tolerating diet although reports continues to not have much of an appetite. Appetite stimulant was added. Encouraged to increase activity as tolerated and continued incentive spirometer use 06/13/2023 Patient is seen and evaluated in follow-up this morning with no acute overnight issues noted. Patient reports his shortness of breath is about the same. Pat ient with some faint expiratory wheeze does have DuoNeb treatments ordered as needed and will make 4 times daily as well. Patient is currently afebrile with no reported chest pain or palpitations. Patient is eating and having bowel movements and denies any nausea or vomiting. Patient continues with significant weakness and awaiting insurance authorization for ECF. Patient would benefit from continued PT/OT therapy at [facility] for strength and mobility. Review of systems CONSTITUTIONAL: No fever, no malaise, no fatigue. HEENT: No recent visual problems or hearing problems. Denied any sore throat. CARDIOVASCULAR: No orthopnea, PND, no palpitations, no syncope. Respiratory: Reports of shortness of breath with exertion but feels it is slightly improved GASTROINTESTINAL: No diarrhea, no nausea, no vomiting, no abdominal pain. Normoactive bowel sounds. NEUROLOGICAL: No headaches, reports of generalized weakness, no numbness. reports continued lower extremity swelling but feels is improving Physical exam: GENERAL: The patient is alert and oriented x3, Well developed, well nourished. ill-appearing. Obese. HEENT: Pupils are round and equally reacting to light. EOMI. No scleral icterus. No conjunctival pallor. Normocephalic, atraumatic. No pharyngeal erythema. No thyromegaly. CARDIOVASCULAR: S1 and S2 present. No murmurs, rubs, or gallops. PULMONARY: Diminished breath sounds bilaterally, minimal faint wheezing noted on expiration, no crackles. Decreased breath sounds on the right Although improved. ABDOMEN: Soft, obese, nontender, nondistended, normoactive bowel sounds. No palpable organomegaly. MUSCULOSKELETAL: No joint swelling or deformity. EXTREMITIES: No cyanosis, clubbing, or pedal edema. Patient has some mild bilateral lower extremity edema noted 1+ pitting pedal, some improvement in edema with compression stockings noted NEUROLOGICAL: Gross neurological examination did not reveal any focal deficits. Diffusely weak SKIN: No rashes. no petechiae. Assessment: Right lower lobe pneumonia associated with right pleural effusion 4.5 cm, it appears to be a loculated effusion, status post pigtail catheter placement on 06/06/2023 with removal of the catheter on 06/11/2023 Empyema with gram-negative pneumonia, Pseudomonas Serratia in the sputum cultures, status post pigtail catheter placement, cultures from pigtail catheter are negative A. fib with RVR, present on admission, currently rate controlled and off Cardizem Acute kidney injury improving, possible elements of chronic kidney disease stage III Acute COPD exacerbation, improving Acute on chronic hypoxic respiratory failure, currently on 4 L and normally wears 2 L outpatient Obesity with BMI of 32.1. Gait dysfunction with generalized weakness History of BPH Hypertension GI prophylaxis DVT prophylaxis Full code Plan: Patient is continued on IV Zosyn as sputum culture showed Pseudomonas with serratia and Corynebacterium striatum. Fluid cultures from pigtail catheter are negative Pulmonary and CT surgery following and patient is status post pigtail catheter removal. Patient to continue on IV antibiotics and will transition to oral antibiotics on discharge. Wean FiO2 as tolerated currently continued on 4 L. Encourage incentive spirometer use at least 10 times every hour while awake Cardiology following and patient is off Cardizem and currently rate controlled with medication adjustments. PT/OT therapy following recommending rehab on discharge. Patient will need ECF on discharge as patient is significantly weak and has had prolonged hospitalization. Case management following and has submitted for insurance authorization which remains pending. Patient will be going to [facility] once insurance authorization is obtained Patient continues with lower extremity swelling and continues with compression stockings and having improvements in the lower extremities although continues to have bilateral 2+ pedal edema noted. Encouraged elevating while at rest. Possible discharge in the next 24 to 48 hours The impression and plan of care has been dictated by Namita Chavarria, Nurse Practitioner as directed. Dr. Brianna MD I have performed a history and examination and MDM of this patient, discussed the same with the dictator, and agree with the dictator's assessment and plan as written ,documented as a scribe. Based on total visit time, I have performed more than 50% of the visit. Objective - Vital Signs Vital signs: Vital Signs Temp 98.0 F 06/13/23 20:00 Pulse 84 06/14/23 04:00 Resp 18 06/14/23 04:00 BP 106/45 06/14/23 04:00 Pulse Ox 94 L 06/14/23 04:00 FiO2 60 06/05/23 05:07 Intake & Output 06/13/23 06/13/23 06/14/23 06:59 18:59 06:59 Intake Total 540 Output Total 950 125 Balance -950 415 Weight 105.3 kg Intake: Oral 540 Output: Urine 950 125 Other: Voiding Method Urinal Urinal Urinal - Labs CBC & Chem 7: 06/11/23 07:26 06/12/23 07:50 Labs: Abnormal Lab Results - Last 24 Hours (Table) 06/13/23 06/13/23 06/13/23 Range/Units 05:30 11:33 16:47 POC Glucose (mg/dL) 133 H 154 H 157 H (70-110) mg/dL 06/13/23 Range/Units 20:14 POC Glucose (mg/dL) 184 H (70-110) mg/dL
[2023-06-14 05:55] LABS: Glucose,Whole Blood 125 mg/dL (70-110)
[2023-06-14 11:29] LABS: Glucose,Whole Blood 165 mg/dL (70-110)
[2023-06-14 12:36] VITALS: BP 107/70; PULSE 78; TEMP 98
--- NOTE | 2023-06-14 14:03 | P.DS ---
Providers Date of admission: 06/02/23 04:09 Expected date of discharge: 06/14/23 Attending physician: Karolina Orona Consults: 06/02/23 04:08 Consult Physician Routine Consulting Provider: Pratik Fox Consult Reason/Comments: bipap, pneumonia, copd, pleural effusion Do you want consulting provider notified?: Yes 06/06/23 11:24 Consult Physician Routine Consulting Provider: Kendall Clemons Consult Reason/Comments: TPA administration? Do you want consulting provider notified?: Yes [facility] Course: Final diagnosis Right lower lobe pneumonia associated with right pleural effusion 4.5 cm, with a loculated effusion, status post pigtail catheter placement on 06/06/2023 with removal of the catheter on 06/11/2023 Empyema with gram-negative pneumonia, Pseudomonas Serratia in the sputum cultures, status post pigtail catheter placement, cultures from pigtail catheter are negative A. fib with RVR, present on admission, currently rate controlled and off Cardizem Acute kidney injury improving, possible elements of chronic kidney disease stage III Acute COPD exacerbation, improving Acute on chronic hypoxic respiratory failure, currently on 4 L and normally wears 2 L outpatient Obesity with BMI of 32.1. Gait dysfunction with generalized weakness History of BPH Hypertension GI prophylaxis DVT prophylaxis Full code Discharge disposition Patient is being discharged in a stable condition with guarded prognosis to [facility]. Patient will follow-up with Dr. Kate in the outpatient setting upon discharge. Patient is to continue with oral Levaquin once daily for the next 7 days and close outpatient follow-up with pulmonary as well as cardiology as scheduled. Total time taken is greater than 35 minutes. Hospital course This is a 77-year-old male who was recently admitted with increasing shortness of breath with concerns of right lower lobe pneumonia and underwent CT imaging which appeared to be a loculated effusion on the right and being closely monitored on antibiotics. Patient was evaluated by CT surgery as well as interventional radiology and pulmonary and cardiology and is status post pigtail catheter placement on the right for the loculated effusion. Cultures from there have been negative and patient was continued on Zosyn. Sputum culture showed Pseudomonas aeruginosa, Serratia, Corynebacterium stratum with sensitivities. Patient respiratory status is improved currently on 2 to 3 L via nasal cannula which she chronically wears outpatient and also was being treated for COPD exacerbation. Patient will continue on oral Levaquin once daily for the next 7 days to complete the course. Patient with some lower extremity edema maintained on Bumex and recommend to continue with elevating lower extremities while at rest and continue with compression stockings. Patient is a diabetic and blood sugars have been somewhat uncontrolled with reduced oral intake and has been adjusted as patient takes large doses normally at home of insulin. Recommended continue with Accu-Cheks before meals and at bedtime along with sliding scale. Patient was started on Megace appetite stimulant and has been instructed to follow-up with primary care provider regarding this. Patient also evaluated by cardiology during hospitalization as patient had atrial fibrillation with RVR and was maintained on Cardizem for short period. Patient is resumed on his anticoagulant and currently rate controlled. Patient has been cleared by consultations for discharge with close outpatient follow-up. Patient with prolo nged hospitalization and significant weakness would benefit from rehab. Initially patient was reluctant although evaluated by physical therapy recommending rehab and patient is now agreeable as he was unable to walk although independent prior to this hospitalization. Patient has been accepted at [facility] and insurance authorization was obtained. Patient will be discharged today. Please refer to other consultation notes for further HPI. Currently no reports of chest pain, no worsening shortness of breath, or palpitations. Patient is afebrile. No reports of nausea or vomiting and patient is tolerating diet. Patient will be going to [facility] today. Guarded prognosis and high risk for readmissions given patient's significant comorbidities. Physical exam: Gen: This is a 77-year-old male who is awake, alert and oriented x 3, well- developed, well-nourished HEENT: Head is atraumatic, normocephalic. Pupils equal, round. Sclerae is anicteric. NECK: Supple. No JVD. No lymphadenopathy. No thyromegaly. LUNGS: Diminished breath sounds bilaterally otherwise clear to auscultation. No wheezes or rhonchi. No intercostal retractions. HEART: Regular rate and rhythm. No murmur. ABDOMEN: Soft. Obese. Bowel sounds are present. No masses. No tenderness. EXTREMITIES: 1+ pitting pedal edema. No calf tenderness. Edema of bilateral lower extremities have improved, compression stockings noted NEUROLOGICAL: Patient is awake, alert and oriented x3. Cranial nerves 2 through 12 are grossly intact. Diffusely weak Please refer to medication reconciliation sheet for a list of medications. The impression and plan of care has been dictated by Namita Chavarria, Nurse Practitioner as directed. Dr. Seth MD I have performed a history and examination and MDM of this patient, discussed the same with the dictator, and agree with the dictator's assessment and plan as written ,documented as a scribe. Based on total visit time, I have performed more than 50% of the visit. Patient Condition at Discharge: Fair Plan - Discharge Summary Discharge Rx Participant: Yes New Discharge Prescriptions: New Bumetanide [BUMEX] 1 mg PO DAILY tab Sacubitril/Valsartan [Entresto 24 mg-26 mg Tablet] 1 each PO BID tab Atorvastatin [Lipitor] 40 mg PO HS tab guaiFENesin [Mucinex] 1,200 mg PO Q12HR tab Sennosides [Senokot] 8.6 mg PO BID tab HYDROcodone/APAP 5-325MG [Eagle 5-325] 1 each PO Q6HR PRN #4 tab PRN Reason: Pain Spironolactone [Aldactone] 12.5 mg PO DAILY tab Amiodarone [Cordarone] 200 mg PO BID tab bisacodyL [Dulcolax] 10 mg RECTAL DAILY PRN suppositor PRN Reason: Constipation Apixaban [Eliquis] 5 mg PO BID tab Levofloxacin [Levaquin] 500 mg PO DAILY 7 Days #7 tab Metoprolol Tartrate [Lopressor] 50 mg PO BID tab Megestrol [Megace] 40 mg PO DAILY tab Melatonin 5 mg PO HS PRN tab PRN Reason: Insomnia polyethylene glycoL 3350 [Miralax] 17 gm PO DAILY PRN packet PRN Reason: Constipation INSULIN ASPART (NovoLOG) [NovoLOG (formulary)] 0 unit SQ ACHS each Continue allopurinoL [Zyloprim] 100 mg PO DAILY Tamsulosin HCl [Flomax] 0.4 mg PO HS Rosuvastatin [Crestor] 20 mg PO DAILY Pantoprazole [Protonix] 40 mg PO DAILY Aspirin EC [Ecotrin Low Dose] 81 mg PO DAILY Multivitamins, Thera [Multivitamin (formulary)] 1 tab PO DAILY Ipratropium-Albuterol Nebulize [Duoneb 0.5 mg-3 mg/3 ml Soln] 3 ml INHALATION RT-Q4H PRN PRN Reason: Shortness Of Breath Potassium Chloride [K-Tab ER] 20 meq PO DAILY 30 Days #30 tab Montelukast Sodium [Singulair] 10 mg PO HS Cholecalciferol [Vitamin D3 (25 Mcg = 1000 Iu)] 25 mcg PO DAILY Ascorbic Acid [Vitamin C] 500 mg PO DAILY metFORMIN HCL [Glucophage] 500 mg PO BID Albuterol Inhaler [Ventolin Hfa Inhaler] 2 puff INHALATION RT-Q6H PRN PRN Reason: Shortness Of Breath Fluticasone/Umeclidin/Vilanter [Trelegy Ellipta 200-62.5-25] 1 puff INHALATION RT-DAILY Ipratropium-Albuterol Nebulize [Duoneb 0.5 mg-3 mg/3 ml Soln] 3 ml INHALATION RT-QID #100 each Acetaminophen Tab [Tylenol] 650 mg PO Q4HR PRN tab PRN Reason: Mild Pain Or Fever > 100.5 Discontinued Metoprolol Succinate [Toprol Xl] 50 mg PO DAILY amLODIPine [Norvasc] 5 mg PO DAILY Empagliflozin [Jardiance] 25 mg PO DAILY predniSONE [Deltasone] 20 mg PO DIRECTED Furosemide [Lasix] 20 mg PO BID #60 tab predniSONE See Taper PO DIRECTED lisinopriL [Zestril] 10 mg PO DAILY Discharge Medication List allopurinoL [Zyloprim] 100 mg PO DAILY 03/02/16 [History] Tamsulosin HCl [Flomax] 0.4 mg PO HS 12/29/17 [History] Rosuvastatin [Crestor] 20 mg PO DAILY 02/27/19 [History] Pantoprazole [Protonix] 40 mg PO DAILY 03/03/19 [History] Montelukast Sodium [Singulair] 10 mg PO HS 08/16/20 [History] Aspirin EC [Ecotrin Low Dose] 81 mg PO DAILY 10/10/20 [History] Ascorbic Acid [Vitamin C] 500 mg PO DAILY 10/19/21 [History] Cholecalciferol [Vitamin D3 (25 Mcg = 1000 Iu)] 25 mcg PO DAILY 10/19/21 [History] Multivitamins, Thera [Multivitamin (formulary)] 1 tab PO DAILY 10/19/21 [History] metFORMIN HCL [Glucophage] 500 mg PO BID 10/19/21 [History] Albuterol Inhaler [Ventolin Hfa Inhaler] 2 puff INHALATION RT-Q6H PRN 03/19/22 [History] Ipratropium-Albuterol Nebulize [Duoneb 0.5 mg-3 mg/3 ml Soln] 3 ml INHALATION RT-Q4H PRN 03/19/22 [History] Fluticasone/Umeclidin/Vilanter [Trelegy Ellipta 200-62.5-25] 1 puff INHALATION RT-DAILY 05/23/23 [History] Acetaminophen Tab [Tylenol] 650 mg PO Q4HR PRN tab 05/25/23 [Rx] Ipratropium-Albuterol Nebulize [Duoneb 0.5 mg-3 mg/3 ml Soln] 3 ml INHALATION RT-QID #100 each 05/25/23 [Rx] Potassium Chloride [K-Tab ER] 20 meq PO DAILY 30 Days #30 tab 05/25/23 [Rx] Amiodarone [Cordarone] 200 mg PO BID tab 06/14/23 [Rx] Apixaban [Eliquis] 5 mg PO BID tab 06/14/23 [Rx] Atorvastatin [Lipitor] 40 mg PO HS tab 06/14/23 [Rx] Bumetanide [BUMEX] 1 mg PO DAILY tab 06/14/23 [Rx] HYDROcodone/APAP 5-325MG [Eagle 5-325] 1 each PO Q6HR PRN #4 tab 06/14/23 [Rx] INSULIN ASPART (NovoLOG) [NovoLOG (formulary)] 0 unit SQ ACHS each 06/14/23 [Rx] Levofloxacin [Levaquin] 500 mg PO DAILY 7 Days #7 tab 06/14/23 [Rx] Megestrol [Megace] 40 mg PO DAILY tab 06/14/23 [Rx] Melatonin 5 mg PO HS PRN tab 06/14/23 [Rx] Metoprolol Tartrate [Lopressor] 50 mg PO BID tab 06/14/23 [Rx] Sacubitril/Valsartan [Entresto 24 mg-26 mg Tablet] 1 each PO BID tab 06/14/23 [Rx] Sennosides [Senokot] 8.6 mg PO BID tab 06/14/23 [Rx] Spironolactone [Aldactone] 12.5 mg PO DAILY tab 06/14/23 [Rx] bisacodyL [Dulcolax] 10 mg RECTAL DAILY PRN suppositor 06/14/23 [Rx] guaiFENesin [Mucinex] 1,200 mg PO Q12HR tab 06/14/23 [Rx] polyethylene glycoL 3350 [Miralax] 17 gm PO DAILY PRN packet 06/14/23 [Rx] Follow up Appointment(s)/Referral(s): [facility] [NON-STAFF] - Deanna Kate MD [Primary Care Provider] - 1-2 days Terry Perea MD [STAFF PHYSICIAN] - 2 Weeks Activity/Diet/Wound Care/Special Instructions: Patient is going to [facility] as tolerated Continue with antibiotics for 7 days Continue with breathing treatments 4 times daily and as needed Continue monitoring Accu-Cheks before meals and at bedtime and continue with sliding scale NovoLog sliding scale 0-150 equals 0 units 151-200 equals 2 units 201-250 equals 4 units 251-300 equals 6 units 301-350 equals 8 units 351-400 equals 10 units Please notify provider if blood sugar is 400 or above Follow-up with pulmonary outpatient Follow-up with primary care provider Continue to elevate lower extremities while at rest and continue with compression stockings Discharge/Stand Alone Forms: Who Do I Call?, Community Resources Discharge Disposition: TRANSFER TO SNF/ECF
--- NOTE | 2023-06-14 16:58 | P.PN ---
Subjective Progress Note Date: 06/14/23 On 06/04/2023, I am seeing the patient in follow-up regarding shortness of breath. The patient was found to be in atrial fibrillation with rapid ventricular response and the patient also was found to be in heart failure with a right-sided pleural effusion. The patient continued to have increased lower extremity edema. The patient was seen by cardiology. The patient was switched to oral amiodarone and beta-blockers. Echocardiogram was also done on 06/02/2023 and echo showed a left ventricular ejection fraction of 40 to 45%. RV was not adequately visualized. There was a technically difficult study to evaluate. CT of the chest that was done at time of admission showed right mid lower lobe compressive atelectasis. Significant increase in the size of the right-sided pleural effusion compared to the earlier study that was done on 05/23/2023. No evidence of any pulm embolism. There was some mild to moderate emphysematous changes in the background. Ultrasound of the chest was also done on 06/03/2023 and the patient was found to have a complex right-sided pleural effusion measuring 4.3 cm in size. The patient's white cell count at 17.5. Hemoglobin is at 14.3. Viral screen has been negative. Troponins are negative. proBNP level is 477. Procalcitonin level is at 1.48. I reviewed the CAT scan of the chest and it is very much likely that the Is loculated right-sided effusion. There is an obvious worsening in the right-sided pleural effusion over this past few weeks as the CAT scan of the chest that was done on 05/23/2023 showed very small pleural effusion. Note that the patient is known to have COPD with chronic hypoxic respiratory failure on 2 L of oxygen by nasal cannula. Other comorbid conditions include CAD with previous coronary stenting, previous history of COVID-19 infections, hypertension, hyperlipidemia, diabetes mellitus type 2, hyperuricemia/gout, antral gastritis and previous history of lower GI bleed secondary to hemorrhoids. The patient himself is still having pain along the right side of the chest. Suspend the night on a BiPAP and currently is on 4 L of oxygen by nasal cannula. Slightly improved compared to yesterday.The white cell cause of 60 with a hemoglobin of 15.3, BUN is at 46 with a creatinine of 1.2 and a sodium level is at 140 the white cell count is slightly improved compared to yesterday. Pro-calcitonin level is at 1.48. 06/09/2023, the patient is being seen for a follow-up. The patient is doing well. No specific complaints. Output from the pigtail catheter has been in the order of 400 mL over the past 24 hours. As such, the output is improved and the patient is receiving daily alteplase regarding his right lung empyema. A follow-up CAT scan of the chest was done today and the CAT scan showed very limited loculated right-sided pleural effusion. Patient has background emphysema as noted. No chest pain. No pleurisy. Remains on 2 L O2 by nasal cannula. The patient is in sinus rhythm and he is hemodynamically stable. He was started on anticoagulation with Eliquis. 06/10/2023, the patient has produced approximately 350 mL of fluid from the pigtail catheter. The fluid is nonpurulent and the patient is going to receive another dose of alteplase today. Chest x-ray showing some volume loss and area of consolidation of the right lung. Otherwise, clinically the patient is doing well. No fever or chills. No signs of any septicemia. The patient is currently on 2 L of oxygen by nasal cannula with pulse ox of 94%. The white cell count of 9.4 with a hemoglobin 14.7. BUN is 11 and a creatinine of 1.0 and a sodium level of 135. The pleural fluid cultures are negative as collected from the empyema from the right lung. Lites echoes at 9.4 coming was 14.7 and a platelet count of 302. BUN 11 creatinine of 1 and sodium levels is 135. Patient was reevaluated today on 06/11/23, continues to have pigtail catheter in place, continues to have nonpurulent drainage from his right pleural space, to 50 ML of serosanguineous drainage noted in the last 24 hours. Patient received his last dose of alteplase/door days on 06/10/23, cardiothoracic surgery is recommending removing the right pleural pigtail catheter. In the meantime the patient remains on antibiotics for his empyema. Chest x-ray is showing imp rovement, right exterior pleural catheter remains in place. There is some associated atelectasis, no evidence of pneumothorax. Fluid from the pleural space has been negative however sputum has been positive for Pseudomonas Serratia corynebacterium striatum patient remains on Zosyn Reevaluated today on 06/12/2023, patient seems to be doing better today, not in any distress, relatively asymptomatic. His pigtail catheter was removed yesterday, and the patient is now mostly on antibiotics for presumptive empyema. Pleural fluid remain negative, patient did have positive sputum cultures. And that is being addressed accordingly. Outpatient basis, patient may benefit from treatment with ciprofloxacin for 10 days when the patient is discharged. Presently the patient is receiving Zosyn Reevaluate today on 06/13/2023, patient is doing well, relatively asymptomatic. Remains on antibiotics for his pneumonia and empyema/complicated pleural effusion, cultures from the pleural effusion have remained negative lung, but his sputum cultures have grown Serratia and have grown Pseudomonas. Patient could be transitioned to ciprofloxacin upon discharge. His pigtail catheter has been removed. Patient is being considered for placement in ECF The patient is seen today June 14, 2023 in follow-up on the selective care unit. He is currently sitting up in a chair at the bedside. Awake and alert in no acute distress. He denies any worsening shortness of breath, cough or congestion. He is maintaining O2 saturations in the 90s on 3 L/min per nasal cannula. He is continued on bronchodilators, antibiotics in the form of Zosyn. Anticoagulated with Eliquis. Blood sugar 165. Objective - Vital Signs Vital signs: Vital Signs Temp 98.0 F 06/14/23 12:00 Pulse 78 06/14/23 13:36 Resp 18 06/14/23 13:36 BP 107/70 06/14/23 12:00 Pulse Ox 98 06/14/23 12:00 FiO2 60 06/05/23 05:07 Intake & Output 06/13/23 06/14/23 06/14/23 18:59 06:59 18:59 Intake Total 540 240 Output Total 125 1150 Balance 415 -910 Intake: Oral 540 240 Output: Urine 125 1150 Other: Voiding Method Urinal Urinal Urinal - Exam GENERAL EXAM: Alert, pleasant 77-year-old gentleman, on 3 L nasal cannula, up in a chair, comfortable in no apparent distress. HEAD: Normocephalic. EYES: Normal reaction of pupils, equal size. NOSE: Clear with pink turbinates. THROAT: No erythema or exudates. NECK: No masses, no JVD. CHEST: No chest wall deformity. Dressing from previous chest tube site clean and dry LUNGS: Equal air entry with no crackles, wheeze, rhonchi or dullness. CVS: S1 and S2 normal with no audible murmur, regular rhythm. ABDOMEN: No hepatosplenomegaly, normal bowel sounds, no guarding or rigidity. SPINE: No scoliosis or deformity SKIN: No rashes CENTRAL NERVOUS SYSTEM: No focal deficits, tone is normal in all 4 extremities. EXTREMITIES: There is no peripheral edema. No clubbing, no cyanosis. Peripheral pulses are intact. - Labs CBC & Chem 7: 06/11/23 07:26 06/12/23 07:50 Labs: Abnormal Lab Results - Last 24 Hours (Table) 06/13/23 06/14/23 06/14/23 Range/Units 20:14 05:41 11:28 POC Glucose (mg/dL) 184 H 125 H 165 H (70-110) mg/dL Assessment and Plan Assessment: Acute on chronic hypoxemic respiratory failure secondary to a right lower lobe pleural effusion, somewhat loculated. Status post right pigtail chest tube insertion and subsequent removal, continued on Zosyn Atrial fibrillation with rapid ventricular response Acute kidney injury Leukocytosis Mild transaminitis Recent discharge on 05/25/2023 for pneumonia Morbid obesity Oxygen dependent chronic obstructive pulmonary disease Coronary artery disease with previous stent placement 3 Hypertension Hyperlipidemia History of gout Former smoker Plan: The patient was seen and evaluated Labs and medications reviewed Continue bronchodilators, steroids Continue antibiotics Titrate down the FiO2 as tolerated Plan is for transfer to subacute rehab post discharge I have personally seen and examined the patient, performed the documentation and the assessment and plan as written. Number of minutes spent on the visit: 10.
[2023-06-14] MEDS ORDERED: FAMOTIDINE 20 MG TAB PO SCH (21:00)
--- NOTE | 2023-06-18 16:56 | CDI ---
Documentation Clarification Form Date: 06/18/2023 From: Carmenza Banuelos Admit Date: 06/02/2023 04:09:00 AM Patient Name: Salvatore Aguilar Visit Number: [id number] Discharge Date: 06/14/2023 04:17:00 PM ATTENTION: The Clinical Documentation Specialists (CDI) and [facility] Coding Staff appreciate your assistance in clarifying documentation. Please respond to the clarification below the line at the bottom and electronically sign. The CDI & [facility] Coding staff will review the response and follow-up if needed. Please note: Queries are made part of the Legal Health Record. If you have any questions, please contact the author of this message via ITS. Dr. Francie Reed The patient has leukocytosis, tachycardia and tachypnea. Based on this information and the findings below, is there an additional diagnosis that is clinically appropriate for this patient? History/Risk Factors: 77yo presented with right lower lobe pneumonia, acute on chronic respiratory failure and a loculated pleural effusion. The pt had a pigtail catheter placed on 06/06 Clinical Indicators: WBC 06/02: 19.1 Lactic acid 06/02: 2.4 -> 1.4 Sputum culture: Pseudomonas aeruginosa, Serratia and Corynebacterium stratum Pleural fluid culture 1/ Vitals signs: 06/02 @ 0126 97.3, 128, 32, 144/84, 93% on BiPAP Treatment: Alteplase/Dornase Arcenio irrigated into the pleural space, Zithromax IV, Zosyn IV, IV fluid bolus Is there an additional diagnosis that is clinically appropriate for this patient? [ x ] Sepsis 2nd to Pseudomonas/Serratia/Corynebacterium pneumonia [ ] Sepsis ruled out [ ] Severe Sepsis with organ failure [ ] Other, please specify [ ] Unable to determine SIRS Criteria: 2 or more of the following may indicate SIRS Temperature < 96.8F (36C) or > 101.0F (38.3C) Heart Rate > 90 bpm Respiratory Rate > 20 breaths/min or PaCO2 < 32 mmHg White Blood Cell Count > 12,000 or < 4,000 cells/mm3 or > 10% bands (Template Last Reviewed: May 2022) MTDD
== END 2023-06-14 16:17 | DRG 871 ==
LOC: EC 01:24 → 3SCARD 04:09
PROVIDERS: ADMIT Hospitalist; ATTEND Hospitalist
PROC: 5A09357 Assistance with Respiratory Ventilation, Less than 24 Consecutive Hours, Continuous Positive Airway Pressure (ICD-10-PCS; 2023-06-02)
PROC: 0W9930Z Drainage of Right Pleural Cavity with Drainage Device, Percutaneous Approach (ICD-10-PCS; principal; 2023-06-06)
PROC: 3E0L3GC Introduction of Other Therapeutic Substance into Pleural Cavity, Percutaneous Approach (ICD-10-PCS; 2023-06-06)
DX: A41.52 Sepsis due to Pseudomonas (principal); J15.1 Pneumonia due to Pseudomonas; J86.9 Pyothorax without fistula; J96.21 Acute and chronic respiratory failure with hypoxia; N17.9 Acute kidney failure, unspecified; I13.0 Hypertensive heart and chronic kidney disease with heart failure and stage 1 through stage 4 chronic kidney disease, or unspecified chronic kidney disease; I48.92 Unspecified atrial flutter; J91.8 Pleural effusion in other conditions classified elsewhere; J44.0 Chronic obstructive pulmonary disease with (acute) lower respiratory infection; J98.11 Atelectasis; J44.1 Chronic obstructive pulmonary disease with (acute) exacerbation; A41.53 Sepsis due to Serratia; I50.82 Biventricular heart failure; I95.9 Hypotension, unspecified; Z99.81 Dependence on supplemental oxygen; E11.22 Type 2 diabetes mellitus with diabetic chronic kidney disease; E66.01 Morbid (severe) obesity due to excess calories; N18.30 Chronic kidney disease, stage 3 unspecified; E11.65 Type 2 diabetes mellitus with hyperglycemia; B96.89 Other specified bacterial agents as the cause of diseases classified elsewhere; I48.0 Paroxysmal atrial fibrillation; I25.10 Atherosclerotic heart disease of native coronary artery without angina pectoris; R74.01 Elevation of levels of liver transaminase levels; E78.5 Hyperlipidemia, unspecified; M10.9 Gout, unspecified; E86.0 Dehydration; N40.0 Benign prostatic hyperplasia without lower urinary tract symptoms; K21.9 Gastro-esophageal reflux disease without esophagitis; K29.70 Gastritis, unspecified, without bleeding; K64.9 Unspecified hemorrhoids; Z68.32 Body mass index [BMI] 32.0-32.9, adult; Z28.311 Partially vaccinated for COVID-19; Z79.899 Other long term (current) drug therapy; Z79.82 Long term (current) use of aspirin; Z79.84 Long term (current) use of oral hypoglycemic drugs; Z79.51 Long term (current) use of inhaled steroids; Z95.5 Presence of coronary angioplasty implant and graft; I25.2 Old myocardial infarction; Z87.19 Personal history of other diseases of the digestive system; Z86.16 Personal history of COVID-19; Z87.891 Personal history of nicotine dependence; Z11.52 Encounter for screening for COVID-19
CPT/HCPCS: 32551; 36415; 71045; 71046; 71250; 71275; 74018; 76604; 80048; 80053; 82945; 83036; 83605; 83735; 83880; 84145; 84157; 84484; 85025; 85610; 85730; 87040; 87070; 87077; 87186; 87205; 87449; 87636; 88108; 88305; 89050; 93005; 93306; 94640; 94660; 94760; 96365; 96366; 96367; 96368; 96372; 96375; 96376; 99291

== ENCOUNTER 2023-11-06 11:09 | Inpatient (IN) | payer MEDICARE ==
[2023-11-06 12:03] LABS: Basophils % (A) 0 %; Eosinophils % (A) 1 %; HCT 40.5 % (39.0-53.0); Lymphocytes # (A) 0.6 k/uL (1.0-4.8); Lymphocytes % (A) 8 %; MCH 31.1 pg (25.0-35.0); MCV 97.4 fL (80.0-100.0); Mean Platelet Volume 7.3; Monocytes # (A) 0.2 k/uL (0-1.0); Monocytes % (A) 3 %; Neutrophils # (A) 6.7 k/uL (1.3-7.7); Neutrophils % (A) 88 %; Platelet Count 198 k/uL (150-450); RBC 4.16 m/uL (4.30-5.90); RDW 13.4 % (11.5-15.5); WBC 7.6 k/uL (3.8-10.6)
[2023-11-06] MEDS: FUROSEMIDE 10 MG/ML 4 ML VIAL IV STA (12:04)
[2023-11-06 12:05] LABS: ALT 16 U/L (4-49); AST 20 U/L (17-59); African American GFR (CKD) 69 (>60 ml/min/1.73 sqM); Albumin 4.3 g/dL (3.5-5.0); Alkaline Phosphatase 82 U/L (38-126); Anion Gap 10 mmol/L; Blood Urea Nitrogen 17 mg/dL (9-20); Carbon Dioxide 24 mmol/L (22-30); Chloride 104 mmol/L (98-107); Glucose 146 mg/dL (74-99); Non-African American GFR(CKD) 59 (>60 ml/min/1.73 sqM); Potassium 4.4 mmol/L (3.5-5.1); Sodium 138 mmol/L (137-145); Total Bilirubin 0.8 mg/dL (0.2-1.3); Total Protein 6.5 g/dL (6.3-8.2)
--- NOTE | 2023-11-06 12:07 | ED ---
General Adult HPI - General Chief complaint: Extremity Problem,Nontraumatic Stated complaint: feet swelling Time Seen by Provider: 11/06/23 11:30 Source: patient, RN notes reviewed Limitations: no limitations - History of Present Illness Initial comments: This is a 78-year-old male presents emergency department referral from his primary care provider due to bilateral lower extremity pedal edema. Patient states that he had worsening edema over the past few weeks. He endorses paroxysmal nocturnal dyspnea, dyspnea on exertion. Denies a history of COPD and chronically wears 2 L of oxygen at baseline. He denies history of congestive heart failure. Has a history of cardiac stent placement, atrial fibrillation on Eliquis. Patient states that he is on a "water pill "at home but is unaware of what medication this is. Giovany the patient denies chest pain, chest pressure, pal pitations, dizziness, lightheadedness. Denies recent fevers or chills, nausea, vomiting. - Related Data Home Medications Medication Instructions Recorded Confirmed allopurinoL [Zyloprim] 100 mg PO DAILY 03/02/16 11/06/23 Tamsulosin HCl [Flomax] 0.4 mg PO HS 12/29/17 11/06/23 Rosuvastatin [Crestor] 20 mg PO DAILY 02/27/19 11/06/23 Pantoprazole [Protonix] 40 mg PO DAILY 03/03/19 11/06/23 Montelukast Sodium [Singulair] 10 mg PO HS 08/16/20 11/06/23 Aspirin EC [Ecotrin Low Dose] 81 mg PO DAILY 10/10/20 11/06/23 Ascorbic Acid [Vitamin C] 500 mg PO DAILY 10/19/21 11/06/23 Cholecalciferol [Vitamin D3 (25 25 mcg PO DAILY 10/19/21 11/06/23 Mcg = 1000 Iu)] Multivitamins, Thera [Multivitamin 1 tab PO DAILY 10/19/21 11/06/23 (formulary)] metFORMIN HCL [Glucophage] 500 mg PO BID 10/19/21 11/06/23 Albuterol Inhaler [Ventolin Hfa 2 puff INHALATION RT-Q6H PRN 03/19/22 11/06/23 Inhaler] Ipratropium-Albuterol Nebulize 3 ml INHALATION RT-Q4H PRN 03/19/22 11/06/23 [Duoneb 0.5 mg-3 mg/3 ml Soln] Fluticasone/Umeclidin/Vilanter 1 puff INHALATION RT-DAILY 05/23/23 11/06/23 [Trelegy Ellipta 200-62.5-25] Amiodarone [Cordarone] 200 mg PO DAILY 11/06/23 11/06/23 Levothyroxine Sodium [Synthroid] 25 mcg PO DAILY 11/06/23 11/06/23 Sacubitril/Valsartan [Entresto 24 1 tab PO BID 11/06/23 11/06/23 mg-26 mg Tablet] Sulfamethox-Tmp 800-160Mg [Bactrim 1 tab PO Q12HR 11/06/23 11/06/23 DS 800-160 mg] predniSONE See Taper PO DIRECTED 11/06/23 11/06/23 Previous Rx's Medication Instructions Recorded Acetaminophen Tab [Tylenol] 650 mg PO Q4HR PRN tab 05/25/23 Ipratropium-Albuterol Nebulize 3 ml INHALATION RT-QID #100 each 05/25/23 [Duoneb 0.5 mg-3 mg/3 ml Soln] Potassium Chloride [K-Tab ER] 20 meq PO DAILY 30 Days #30 tab 05/25/23 Apixaban [Eliquis] 5 mg PO BID tab 06/14/23 Bumetanide [BUMEX] 1 mg PO DAILY tab 06/14/23 Melatonin 5 mg PO HS PRN tab 06/14/23 Spironolactone [Aldactone] 12.5 mg PO DAILY tab 06/14/23 polyethylene glycoL 3350 [Miralax] 17 gm PO DAILY PRN packet 06/14/23 Allergies Allergy/AdvReac Type Severity Reaction Status Date / Time No Known Allergies Allergy Verified 11/06/23 13:30 Review of Systems ROS Statement: Those systems with pertinent positive or pertinent negative responses have been documented in the HPI. ROS Other: All systems not noted in ROS Statement are negative. Past Medical History Past Medical History: Coronary Artery Disease (CAD), Chest Pain / Angina, COPD, Diabetes Mellitus, GERD/Reflux, GI Bleed, Hyperlipidemia, Hypertension, Myocardial Infarction (OK), Skin Disorder Additional Past Medical History / Comment(s): Hx of rectal bleeding, rectal fissure; gout, bronchitis, uses O2 @ 2L [place]. +Covid 08/2020. Hx cysts on groin area. Last Myocardial Infarction Date:: approx 2005 History of Any Multi-Drug Resistant Organisms: None Reported Past Surgical History: Heart Catheterization With Stent Additional Past Surgical History / Comment(s): total 3 cardiac stents, surgery for cyst in rectal area, siddharth cataracts, uro lift, cysts removed from testicles, buttocks, and back, colonoscopy Past Anesthesia/Blood Transfusion Reactions: No Reported Reaction Date of Last Stent Placement:: 2005 Past Psychological History: No Psychological Hx Reported Smoking Status: Former smoker Past Alcohol Use History: Occasional Past Drug Use History: None Reported - Past Family History Father Family Medical History: Cancer Additional Family Medical History / Comment(s): lung cancer Mother Family Medical History: No Reported History Additional Family Medical History / Comment(s): Mother was healthy and lived to be in her 90s. General Exam Limitations: no limitations General appearance: alert, in no apparent distress Head exam: Present: atraumatic, normocephalic, normal inspection Eye exam: Present: normal appearance, PERRL, EOMI. Absent: scleral icterus, conjunctival injection, periorbital swelling ENT exam: Present: normal exam, mucous membranes moist Neck exam: Present: normal inspection. Absent: tenderness, meningismus, lymphadenopathy Respiratory exam: Present: wheezes, decreased breath sounds. Absent: respiratory distress Cardiovascular Exam: Present: regular rate, normal rhythm, tachycardia, normal heart sounds. Absent: systolic murmur, diastolic murmur, rubs, gallop, clicks GI/Abdominal exam: Present: soft, normal bowel sounds. Absent: distended, tenderness, guarding, rebound, rigid Extremities exam: Present: pedal edema (bilateral 3+ pitting edema extending proximally to mid calf) Back exam: Present: normal inspection Neurological exam: Present: alert, oriented X3, CN II-XII intact Skin exam: Present: warm, dry, intact, other (bilateral pedal edema) Course Vital Signs 11/06/23 11/06/23 11:10 12:57 Temperature 97.9 F Pulse Rate 106 H 90 Respiratory 18 18 Rate Blood Pressure 139/65 143/90 O2 Sat by Pulse 91 L 93 L Oximetry Medical Decision Making - Medical Decision Making Was pt. sent in by a medical professional or institution (, PA, RN INTAKE, urgent care, hospital, or [facility]...) When possible be specific @ -Patient was advised by his primary care provider Dr. Kate to report to the emergency department for further evaluation of bilateral pedal edema. Did you speak to anyone other than the patient for history (EMS, parent, family, police, friend...)? What history was obtained from this source @ -No Did you review nursing and triage notes (agree or disagree)? Why? @ -I reviewed and agree with nursing and triage notes Were old charts reviewed (outside hosp., previous admission, EMS record, old EKG, old radiological studies, urgent care reports/EKG's, [facility] records)? Report findings @ -I reviewed the patient's emergency department visit from 06/02/2023 where he presented with dyspnea was admitted with pulmonology on consult due to findings of right-sided pleural effusion, compression atelectasis and pneumonia. Differential Diagnosis (chest pain, altered mental status, abdominal pain women, abdominal pain men, vaginal bleeding, weakness, fever, dyspnea, syncope, headache, dizziness, GI bleed, back pain, seizure, CVA, palpatations, mental health, musculoskeletal)? @ -Differential Dyspnea: Coronary syndrome, arrhythmia, tamponade, asthma, COPD, pulmonary embolism, pneumonia, pneumothorax, pulmonary effusion, anaphylaxis, diabetic ketoacidosis, flailed chest, pulmonary contusion, diaphragmatic rupture, anemia, neuromuscular, this is not meant to be an all-inclusive list. EKG interpreted by me (3pts min.). @ -Completed at 1122, sinus rhythm, ventricular rate 95, ND interval 196, QTc 388. No acute signs of ischemia. X-rays interpreted by me (1pt min.). @ -Chest x-ray no acute cardiopulmonary process or disease, COPD changes. CT interpreted by me (1pt min.). @ -None done U/S interpreted by me (1pt. min.). @ -None done What testing was considered but not performed or refused? (CT, X-rays, U/S, labs)? Why? @ -None What meds were considered but not given or refused? Why? @ -None Did you discuss the management of the patient with other professionals (professionals i.e. , ADWOA, RN INTAKE, lab, RT, psych nurse, social science research assistant, stone setter apprentice, teacher, ship's officer, rn case manager hospice)? Give summary @ -Spoke with internal medicine physician Dr. Xie with [facility] hospitalist in regard to the patient's bilateral pedal edema and hypomagnesemia. Patient has been accepted for admission to continue Mg resupplementation and diuresis. Was smoking cessation discussed for >3mins.? @ -No Was critical care preformed (if so, how long)? @ -No Were there social determinants of health that impacted care today? How? (Homelessness, low income, unemployed, alcoholism, drug addiction, howell sportation, low edu. Level, literacy, decrease access to med. care, skilled nursing, rehab)? @ -No Was there de-escalation of care discussed even if they declined (Discuss DNR or withdrawal of care, Hospice)? DNR status @ -No What co-morbidities impacted this encounter? (DM, HTN, Smoking, COPD, CAD, Cancer, CVA, ARF, Chemo, Hep., AIDS, mental health diagnosis, sleep apnea, morbid obesity)? @ -None Was patient admitted / discharged? Hospital course, mention meds given and route, prescriptions, significant lab abnormalities, going to OR and other pertinent info. @ -Admitted. 78-year-old male with bilateral pedal edema. On examination patient noted to have 3+ bilateral pedal edema that spreads proximally up to the mid calf. Patient is mildly hypoxic on 2 L nasal cannula presentation at 91% which on review of previous vital signs is at baseline for him. Patient is currently denying symptoms of worsening dyspnea, productive cough, chills or fevers. Patient will be evaluated via laboratory studies and chest x-ray. CBC unremarkable, CMP unremarkable, hypomagnesemia 1.1. Troponin nonelevated at 0.012 and BNP 384. Medicine team consulted for magnesium supplementation and bilateral pedal edema, patient is accepted. He will be started on 4 g of IV magnesium. Case discussed with Dr. Kwan Undiagnosed new problem with uncertain prognosis? @ -No Drug Therapy requiring intensive monitoring for toxicity (Heparin, Nitro, Insulin, Cardizem)? @ -No Were any procedures done? @ -No Diagnosis/symptom? @ -hypomagnesemia, bilateral pedal edema Acute, or Chronic, or Acute on Chronic? @ -acute, acute on chronic Uncomplicated (without systemic symptoms) or Complicated (systemic symptoms)? @ -uncomplicated Side effects of treatment? @ -No Exacerbation, Progression, or Severe Exacerbation? @ -No Poses a threat to life or bodily function? How? (Chest pain, [place], [place], pneumonia, PE, COPD, DKA, ARF, appy, cholecystitis, CVA, Diverticulitis, Homicidal, Suicidal, threat to staff... and all critical care pts) @ -No - Lab Data Result diagrams: 11/06/23 11:32 11/06/23 11:32 Lab Results 11/06/23 11/06/23 11/06/23 Range/Units 11:32 11:32 11:32 WBC 7.6 (3.8-10.6) k/uL RBC 4.16 L (4.30-5.90) m/uL Hgb 13.0 (13.0-17.5) gm/dL Hct 40.5 (39.0-53.0) % MCV 97.4 (80.0-100.0) fL MCH 31.1 (25.0-35.0) pg MCHC 32.0 (31.0-37.0) g/dL RDW 13.4 (11.5-15.5) % Plt Count 198 (150-450) k/uL MPV 7.3 Neutrophils % 88 % Lymphocytes % 8 % Monocytes % 3 % Eosinophils % 1 % Basophils % 0 % Neutrophils # 6.7 (1.3-7.7) k/uL Lymphocytes # 0.6 L (1.0-4.8) k/uL Monocytes # 0.2 (0-1.0) k/uL Eosinophils # 0.0 (0-0.7) k/uL Basophils # 0.0 (0-0.2) k/uL Sodium 138 (137-145) mmol/L Potassium 4.4 (3.5-5.1) mmol/L Chloride 104 (98-107) mmol/L Carbon Dioxide 24 (22-30) mmol/L Anion Gap 10 mmol/L BUN 17 (9-20) mg/dL Creatinine 1.17 (0.66-1.25) mg/dL Est GFR (CKD-EPI)AfAm 69 (>60 ml/min/1.73 sqM) Est GFR (CKD-EPI)NonAf 59 (>60 ml/min/1.73 sqM) Glucose 146 H (74-99) mg/dL Calcium 9.0 (8.4-10.2) mg/dL Magnesium (1.6-2.3) mg/dL Total Bilirubin 0.8 (0.2-1.3) mg/dL AST 20 (17-59) U/L ALT 16 (4-49) U/L Alkaline Phosphatase 82 (38-126) U/L Troponin I <0.012 (0.000-0.034) ng/mL NT-Pro-B Natriuret Pep 384 pg/mL Total Protein 6.5 (6.3-8.2) g/dL Albumin 4.3 (3.5-5.0) g/dL 11/06/23 Range/Units 11:32 WBC (3.8-10.6) k/uL RBC (4.30-5.90) m/uL Hgb (13.0-17.5) gm/dL Hct (39.0-53.0) % MCV (80.0-100.0) fL MCH (25.0-35.0) pg MCHC (31.0-37.0) g/dL RDW (11.5-15.5) % Plt Count (150-450) k/uL MPV Neutrophils % % Lymphocytes % % Monocytes % % Eosinophils % % Basophils % % Neutrophils # (1.3-7.7) k/uL Lymphocytes # (1.0-4.8) k/uL Monocytes # (0-1.0) k/uL Eosinophils # (0-0.7) k/uL Basophils # (0-0.2) k/uL Sodium (137-145) mmol/L Potassium (3.5-5.1) mmol/L Chloride (98-107) mmol/L Carbon Dioxide (22-30) mmol/L Anion Gap mmol/L BUN (9-20) mg/dL Creatinine (0.66-1.25) mg/dL Est GFR (CKD-EPI)AfAm (>60 ml/min/1.73 sqM) Est GFR (CKD-EPI)NonAf (>60 ml/min/1.73 sqM) Glucose (74-99) mg/dL Calcium (8.4-10.2) mg/dL Magnesium 1.1 L (1.6-2.3) mg/dL Total Bilirubin (0.2-1.3) mg/dL AST (17-59) U/L ALT (4-49) U/L Alkaline Phosphatase (38-126) U/L Troponin I (0.000-0.034) ng/mL NT-Pro-B Natriuret Pep pg/mL Total Protein (6.3-8.2) g/dL Albumin (3.5-5.0) g/dL Disposition Clinical Impression: Hypomagnesemia, Pedal edema Disposition: ADMITTED IP TO THIS [facility] Condition: Good Decision to Admit Reason: Admit from EC Decision Date: 11/06/23 Decision Time: 13:34
[2023-11-06 12:12] LABS: NT-Pro-B-Type Natriuretic Pept 384 pg/mL
--- NOTE | 2023-11-06 12:47 | XR ---
EXAMINATION TYPE: XR chest 2V DATE OF EXAM: 11/06/2023 12:39 PM CLINICAL INDICATION:Male, 78 years old with history of SOB; COMPARISON: Chest radiographs from 06/12/2023. TECHNIQUE: XR chest 2V Frontal and lateral views of the chest. FINDINGS: Lungs/Pleura: There is flattening of the diaphragm with increased lucency of the lungs. No evidence o f pneumothorax, pleural effusion or focal consolidation. Pulmonary vascularity: Unremarkable. Heart/mediastinum: Cardiomediastinal silhouette is unremarkable. Musculoskeletal: No acute osseous pathology. IMPRESSION: 1. No acute cardiopulmonary disease process. 2. COPD changes.
[2023-11-06] MEDS: MAGNESIUM OXIDE 400 MG TAB PO STA (12:59)
[2023-11-06] MEDS ORDERED: NALOXONE 0.4 MG/ML 1 ML VIAL IV PRN (13:35)
[2023-11-06] MEDS ORDERED: ACETAMINOPHEN TAB 325 MG TAB PO PRN (14:40)
[2023-11-06] MEDS ORDERED: ALBUTEROL NEBULIZED 2.5 MG/3 ML INHALATION PRN (14:40)
[2023-11-06] MEDS: MAGNESIUM SULFATE-D5W PMX 1 GM in DEXTROSE/WATER 1 100ML.BAG IVPB SCH (14:46)
[2023-11-06] MEDS: metFORMIN 500 MG TAB PO SCH (16:52)
[2023-11-06 17:06] LABS: Glucose,Whole Blood 228 mg/dL (70-110)
[2023-11-06] MEDS: SYMBICORT 160-4.5 MCG INHALER INHALATION SCH (19:48)
[2023-11-06] MEDS: SACUBITRIL/VALSARTAN 24 MG-26 MG TABLET PO SCH (20:19)
[2023-11-06] MEDS: MONTELUKAST 10 MG TAB PO SCH (20:19)
[2023-11-06] MEDS: MELATONIN 5 MG TABLET PO PRN (20:19)
[2023-11-06] MEDS: APIXABAN 5 MG TAB PO SCH (20:19)
[2023-11-06] MEDS: TAMSULOSIN 0.4 MG CAP.ER.24H PO SCH (20:19)
[2023-11-07] MEDS: LEVOTHYROXINE 25 MCG TAB PO SCH (06:09)
[2023-11-07] MEDS: PANTOPRAZOLE 40 MG TABLET PO SCH (06:09)
[2023-11-07 06:10] LABS: Glucose,Whole Blood 101 mg/dL (70-110)
[2023-11-07] MEDS: IPRATROPIUM 0.5 MG/2.5 ML NEBU INHALATION SCH (08:10)
[2023-11-07] MEDS ORDERED: BUMETANIDE 1 MG TAB PO SCH ×2 (09:00)
[2023-11-07] MEDS: ASPIRIN 81 MG PO SCH (09:19)
[2023-11-07] MEDS: ATORVASTATIN 40 MG TAB PO SCH (09:19)
[2023-11-07] MEDS: CHOLECALCIFEROL 25 MCG (1000 IU) TABLET PO SCH (09:19)
[2023-11-07] MEDS: ASCORBIC ACID 500 MG TAB PO SCH (09:19)
[2023-11-07] MEDS: POTASSIUM CHLORIDE ER 20 MEQ TAB.ER PO SCH (09:19)
[2023-11-07] MEDS: MULTIVITAMINS, THERA 1 EACH TAB PO SCH (09:19)
[2023-11-07] MEDS: FUROSEMIDE 10 MG/ML 4 ML VIAL IV SCH (09:19)
[2023-11-07] MEDS: SPIRONOLACTONE 25 MG TAB PO SCH (09:19)
[2023-11-07] MEDS: allopurinoL 100 MG TAB PO SCH (09:19)
[2023-11-07 10:13] LABS: Basophils # (A) 0.01 X 10*3/uL (0.00-0.10); Basophils % (A) 0.1 %; Eosinophils # (A) 0.15 X 10*3/uL (0.04-0.35); Eosinophils % (A) 2.2 %; HGB 11.9 g/dL (13.0-17.0); Lymphocytes # (A) 1.84 X 10*3/uL (0.90-5.00); Lymphocytes % (A) 27.3 %; MCH 31.5 pg (27.0-32.0); MCHC 33.1 g/dL (32.0-37.0); MCV 95.2 FL (80.0-97.0); Mean Platelet Volume 9.1 FL (9.5-12.2); Monocytes % (A) 8.9 %; NRBC Per 100 WBC 0 X 10*3/uL (0.00-0.01); Neutrophils # (A) 4.09 X 10*3/uL (1.80-7.70); Neutrophils % (A) 60.6 %; Platelet Count 209 X 10*3/uL (140-440); RBC 3.78 X 10*6/uL (4.40-5.60); RDW 13.2 % (11.5-14.5); WBC 6.75 X 10*3/uL (4.50-10.00)
[2023-11-07] MEDS: AMIODARONE 200 MG TAB PO SCH (10:17)
[2023-11-07 10:24] LABS: ALT 13 U/L (10-49); AST 13 U/L (14-35); Albumin 3.8 g/dL (3.8-4.9); Albumin/Globulin Ratio 2.38 Ratio (1.60-3.17); Alkaline Phosphatase 66 U/L (41-126); BUN/Creat Ratio 11.93 Ratio (12.00-20.00); Blood Urea Nitrogen 16.7 mg/dL (9.0-27.0); Calcium 8.5 mg/dL (8.7-10.3); Chloride 103 mmol/L (96-109); Globulin 1.6 g/dL (1.6-3.3); Glucose 98 mg/dL (70-110); Sodium 140 mmol/L (135-145); Total Bilirubin 0.5 mg/dL (0.3-1.2); Total Protein 5.4 g/dL (6.2-8.2)
--- NOTE | 2023-11-07 11:11 | P.CRDCN ---
History of Present Illness History of present illness: HISTORY OF PRESENT ILLNESS: This is a 78-year-old male with a past medical history significant for coronary artery disease with previous stenting, ischemic cardiomyopathy, congestive heart failure, paroxysmal atrial fibrillation, hypertension, hyperlipidemia, COPD, and chronic hypoxic respiratory failure on home oxygen. Patient follows in the office with Dr. Garvin. We have been asked to see the patient in consultation for congestive heart failure. Patient examined at the bedside. Patient states he went to his PCP yesterday for routine visit and he was sent to the ER by his physician due to increased lower extremity edema. The patient states he has noticed increased swelling in his legs over the past week. He denies any chest pain or pressure. He denies any worsening shortness of breath. He states he has been compliant with all of his medications including his diuretics. He states that he does follow a low-sodium diet at home. DIAGNOSTICS: - EKG reveals sinus mechanism with no signs of acute ischemia. - Chest xray negative for acute process. COPD changes.. - Laboratory data: WBC 6.75. Hemoglobin 11.9. Platelet count 209. D-dimer 0.30. Sodium 140. Potassium 4.0. BUN 16.7. Troponin negative x 3 - Current home cardiac medications include Entresto 24-26 mg twice a day, amiodarone 200 mg daily, Eliquis 5 mg twice a day, aspirin 81 mg daily, Bumex 1 mg daily, rosuvastatin 20 mg daily, spironolactone 12.5 mg daily. - Most recent echocardiogram obtained in May 2023 revealed ejection fraction 4045%, mild MR mild TR - Cardiac catheterization history: 2008 with stenting of the LAD and RCA REVIEW OF SYSTEMS: At the time of my exam: CONSTITUTIONAL: Denies fever or chills. HEENT: Denies blurred vision, vision changes, or eye pain. Denies hemoptysis CARDIOVASCULAR: Denies chest pain. Denies orthopnea. Denies PND. Denies palpitations RESPIRATORY: Denies shortness of breath. GASTROINTESTINAL: Denies abdominal pain. Denies nausea or vomiting. HEMATOLOGIC: Denies bleeding disorders. GENITOURINARY: Denies any blood in urine. SKIN: Denies pruitis. Denies rash. PHYSICAL EXAM: VITAL SIGNS: Reviewed. GENERAL: Well-developed in no acute distress. HEENT: Head is normocephalic. Pupils are equal, round. Sclerae anicteric. Mucous membranes of the mouth are moist. Neck supple. No JVD or thyromegaly LUNGS: Respirations even and unlabored. Lungs essentially clear to auscultation bilaterally. HEART: Regular rate and rhythm. S1 and S2 heard. ABDOMEN: Soft. Nondistended. Nontender. EXTREMITIES: Normal range of motion. No clubbing or cyanosis. Peripheral pulses intact. 3-4+ pitting bilateral lower extremity edema NEUROLOGIC: Awake and alert. Oriented x 3. ASSESSMENT: Increased lower extremity edema Acute on chronic heart failure with reduced EF, 40 to 45% Coronary artery disease with previous stenting of the LAD and RCA Ischemic cardiomyopathy Paroxysmal atrial fibrillation Hypertension Hyperlipidemia COPD Chronic hypoxic respiratory failure on home oxygen PLAN: 2D echo has been ordered. Await results. Resume home cardiac medications Begin IV Lasix 40 mg every 8 hours Daily weights, accurate intake and output, and monitoring of kidney function Anticipate discharge home tomorrow if lower extremity edema has improved Recommend increasing oral diuretics upon discharge Further recommendations pending patient course Nurse practitioner note has been reviewed by physician. Signing provider agrees with the documented findings, assessment, and plan of care documented by BEHAVIORAL SCIENCE CHAIR as a scribe. Past Medical History Past Medical History: Coronary Artery Disease (CAD), Chest Pain / Angina, COPD, Diabetes Mellitus, GERD/Reflux, GI Bleed, Hyperlipidemia, Hypertension, Myocardial Infarction ([place]), Skin Disorder Additional Past Medical History / Comment(s): Hx of rectal bleeding, rectal fissure; gout, bronchitis, uses O2 @ 2L [place]. +Covid 08/2020. Hx cysts on groin area. Last Myocardial Infarction Date:: approx 2005 History of Any Multi-Drug Resistant Organisms: None Reported Past Surgical History: Heart Catheterization With Stent Additional Past Surgical History / Comment(s): total 3 cardiac stents, surgery for cyst in rectal area, siddharth cataracts, uro lift, cysts removed from testicles, buttocks, and back, colonoscopy Past Anesthesia/Blood Transfusion Reactions: No Reported Reaction Date of Last Stent Placement:: 2005 Past Psychological History: No Psychological Hx Reported Smoking Status: Former smoker Past Alcohol Use History: Occasional Past Drug Use History: None Reported - Past Family History Father Family Medical History: Cancer Additional Family Medical History / Comment(s): lung cancer Mother Family Medical History: No Reported History Additional Family Medical History / Comment(s): Mother was healthy and lived to be in her 90s. Medications and Allergies Home Medications Medication Instructions Recorded Confirmed Type allopurinoL [Zyloprim] 100 mg PO DAILY 03/02/16 11/06/23 History Tamsulosin HCl [Flomax] 0.4 mg PO HS 12/29/17 11/06/23 History Rosuvastatin [Crestor] 20 mg PO DAILY 02/27/19 11/06/23 History Pantoprazole [Protonix] 40 mg PO DAILY 03/03/19 11/06/23 History Montelukast Sodium [Singulair] 10 mg PO HS 08/16/20 11/06/23 History Aspirin EC [Ecotrin Low Dose] 81 mg PO DAILY 10/10/20 11/06/23 History Ascorbic Acid [Vitamin C] 500 mg PO DAILY 10/19/21 11/06/23 History Cholecalciferol [Vitamin D3 (25 25 mcg PO DAILY 10/19/21 11/06/23 History Mcg = 1000 Iu)] Multivitamins, Thera [Multivitamin 1 tab PO DAILY 10/19/21 11/06/23 History (formulary)] metFORMIN HCL [Glucophage] 500 mg PO BID 10/19/21 11/06/23 History Albuterol Inhaler [Ventolin Hfa 2 puff INHALATION RT-Q6H PRN 03/19/22 11/06/23 History Inhaler] Ipratropium-Albuterol Nebulize 3 ml INHALATION RT-Q4H PRN 03/19/22 11/06/23 History [Duoneb 0.5 mg-3 mg/3 ml Soln] Fluticasone/Umeclidin/Vilanter 1 puff INHALATION RT-DAILY 05/23/23 11/06/23 History [Trelegy Ellipta 200-62.5-25] Acetaminophen Tab [Tylenol] 650 mg PO Q4HR PRN tab 05/25/23 11/06/23 Rx Ipratropium-Albuterol Nebulize 3 ml INHALATION RT-QID #100 each 05/25/23 11/06/23 Rx [Duoneb 0.5 mg-3 mg/3 ml Soln] Potassium Chloride [K-Tab ER] 20 meq PO DAILY 30 Days #30 tab 05/25/23 11/06/23 Rx Apixaban [Eliquis] 5 mg PO BID tab 06/14/23 11/06/23 Rx Bumetanide [BUMEX] 1 mg PO DAILY tab 06/14/23 11/06/23 Rx Melatonin 5 mg PO HS PRN tab 06/14/23 11/06/23 Rx Spironolactone [Aldactone] 12.5 mg PO DAILY tab 06/14/23 11/06/23 Rx polyethylene glycoL 3350 [Miralax] 17 gm PO DAILY PRN packet 06/14/23 11/06/23 Rx Amiodarone [Cordarone] 200 mg PO DAILY 11/06/23 11/06/23 History Levothyroxine Sodium [Synthroid] 25 mcg PO DAILY 11/06/23 11/06/23 History Sacubitril/Valsartan [Entresto 24 1 tab PO BID 11/06/23 11/06/23 History mg-26 mg Tablet] Sulfamethox-Tmp 800-160Mg [Bactrim 1 tab PO Q12HR 11/06/23 11/06/23 History DS 800-160 mg] predniSONE See Taper PO DIRECTED 11/06/23 11/06/23 History Allergies Allergy/AdvReac Type Severity Reaction Status Date / Time No Known Allergies Allergy Verified 11/06/23 13:30 Physical Exam Vitals: Vital Signs Temp Pulse Pulse Resp BP BP Pulse Ox 11/07/23 08:19 80 11/07/23 08:10 78 11/07/23 07:48 97.4 F L 73 20 118/71 98 11/07/23 02:16 98.0 F 77 16 103/65 98 11/06/23 20:50 98.0 F 79 16 126/72 98 11/06/23 16:44 97.6 F 84 17 149/84 98 11/06/23 15:57 79 22 130/68 94 L 11/06/23 14:43 86 18 127/75 93 L 11/06/23 12:57 90 18 143/90 93 L 11/06/23 11:10 97.9 F 106 H 18 139/65 91 L Intake and Output 11/06/23 11/07/23 11/07/23 22:59 06:59 14:59 Other: # Voids 1 2 Results 11/07/23 07:13 11/07/23 07:13 Cardiac Enzymes 0611/06/23 11/06/23 Range/Units 11:32 11:32 15:33 AST 20 (17-59) U/L Troponin I <0.012 <0.012 (0.000-0.034) ng/mL 11/06/23 Range/Units 18:37 AST (17-59) U/L Troponin I <0.012 (0.000-0.034) ng/mL CBC 11/06/23 Range/Units 11:32 WBC 7.6 (3.8-10.6) k/uL RBC 4.16 L (4.30-5.90) m/uL Hgb 13.0 (13.0-17.5) gm/dL Hct 40.5 (39.0-53.0) % Plt Count 198 (150-450) k/uL Comprehensive Metabolic Panel 11/06/23 Range/Units 11:32 Sodium 138 (137-145) mmol/L Potassium 4.4 (3.5-5.1) mmol/L Chloride 104 (98-107) mmol/L Carbon Dioxide 24 (22-30) mmol/L BUN 17 (9-20) mg/dL Creatinine 1.17 (0.66-1.25) mg/dL Glucose 146 H (74-99) mg/dL Calcium 9.0 (8.4-10.2) mg/dL AST 20 (17-59) U/L ALT 16 (4-49) U/L Alkaline Phosphatase 82 (38-126) U/L Total Protein 6.5 (6.3-8.2) g/dL Albumin 4.3 (3.5-5.0) g/dL Current Medications Generic Name Dose Route Start Last Admin Trade Name Freq PRN Reason Stop Dose Admin Acetaminophen 650 mg 11/06/23 14:40 Acetaminophen Tab 325 Mg Tab PO Q4HR PRN Mild Pain or Fever > 100.5 Albuterol Sulfate 2.5 mg 11/06/23 14:40 Albuterol Nebulized 2.5 Mg/3 Ml INHALATION RT-Q6H PRN Shortness Of Breath Allopurinol 100 mg 11/07/23 09:00 Allopurinol 100 Mg Tab PO DAILY TRE Amiodarone HCl 200 mg 11/07/23 09:00 Amiodarone 200 Mg Tab PO DAILY TRE Apixaban 5 mg 11/06/23 21:00 11/06/23 20:19 Apixaban 5 Mg Tab PO 5 mg BID TRE Administration Protocol Ascorbic Acid 500 mg 11/07/23 09:00 Ascorbic Acid 500 Mg Tab PO DAILY [facility] Aspirin 81 mg 11/07/23 09:00 Aspirin 81 Mg PO DAILY [facility] Atorvastatin Calcium 40 mg 11/07/23 09:00 Atorvastatin 40 Mg Tab PO DAILY [facility] Budesonide/Formoterol Fumarate 2 puff 11/06/23 20:00 11/07/23 08:10 Symbicort 160-4.5 Mcg Inhaler INHALATION 2 puff RT-BID TRE Administration Bumetanide 1 mg 11/07/23 09:00 Bumetanide 1 Mg Tab PO DAILY [facility] Cholecalciferol 25 mcg 11/07/23 09:00 Cholecalciferol 25 Mcg (1000 Iu) Tablet PO DAILY [facility] Ipratropium [place] 0.5 mg 11/07/23 08:00 11/07/23 08:10 Ipratropium 0.5 Mg/2.5 Ml Nebu INHALATION 0.5 mg RT-QID TRE Administration Levothyroxine Sodium 25 mcg 11/07/23 06:30 11/07/23 06:09 Levothyroxine 25 Mcg Tab PO 25 mcg DAILY@0630 TRE Administration Melatonin 5 mg 11/06/23 14:40 11/06/23 20:19 Melatonin 5 Mg Tablet PO 5 mg HS PRN Administration Insomnia Metformin HCl 500 mg 11/06/23 17:30 11/07/23 06:09 Metformin 500 Mg Tab PO 500 mg BID-W/MEALS TRE Administration Montelukast Sodium 10 mg 11/06/23 21:00 11/06/23 20:19 Montelukast 10 Mg Tab PO 10 mg HS TRE Administration Multivitamins 1 each 11/07/23 09:00 Multivitamins, Thera 1 Each Tab PO DAILY [facility] Naloxone HCl 0.2 mg 11/06/23 13:35 Naloxone 0.4 Mg/Ml 1 Ml Vial IV Q2M PRN Opioid Reversal Pantoprazole Sodium 40 mg 11/07/23 07:30 11/07/23 06:09 Pantoprazole 40 Mg Tablet PO 40 mg [id number] TRE Administration Potassium Chloride 20 meq 11/07/23 09:00 Potassium Chloride Er 20 Meq Tab.Er PO DAILY [facility] Sacubitril/Valsartan 1 each 11/06/23 21:00 11/06/23 20:19 Sacubitril/Valsartan 24 Mg-26 Mg Tablet PO 1 each BID TRE Administration Spironolactone 12.5 mg 11/07/23 09:00 Spironolactone 25 Mg Tab PO DAILY TRE Tamsulosin HCl 0.4 mg 11/06/23 21:00 11/06/23 20:19 Tamsulosin 0.4 Mg Cap.Er.24h PO 0.4 mg HS TRE Administration Intake and Output 11/06/23 11/07/23 11/07/23 22:59 06:59 14:59 Other: # Voids 1 2 11/06/23 11:32 11/06/23 11:32
--- NOTE | 2023-11-07 12:51 | CA ---
Transthoracic Echo Report Name: Salvatore Aguilar Age: 78 Gender: M : 1945 Exam Date: 11/07/2023 09:44 Exam Location: [facility] Ht (in): 72 Wt (lb): 220 Ordering Physician: Tone Perea MD Attending/Referring Phys: [employer] Katie Mathews RDCS Procedure CPT: Indications: SHORTNESS OF BREATH Cardiac Hx: Technical Quality: Fair Contrast 1: Total Dose (mL): Contrast 2: Total Dose (mL): MEASUREMENTS (Male / Female) Normal Values 2D ECHO LV Diastolic Diameter PLAX 5.1 cm 4.2 - 5.9 / 3.9 - 5.3 cm LV Systolic Diameter PLAX 3.4 cm IVS Diastolic Thickness 1.3 cm 0.6 - 1.0 / 0.6 - 0.9 cm LVPW Diastolic Thickness 1.1 cm 0.6 - 1.0 / 0.6 - 0.9 cm LV Relative Wall Thickness 0.5 RV Internal Dim ED PLAX 3.2 cm LA Systolic Diameter LX 3.5 cm 3.0 - 4.0 / 2.7 - 3.8 cm M-MODE Aortic Root Diameter MM 3.1 cm AV Cusp Separation MM 2.1 cm DOPPLER AV Peak Velocity 145.2 cm/s AV Peak Gradient 8.4 mmHg Mitral E Point Velocity 85.4 cm/s Mitral A Point Velocity 95.1 cm/s Mitral E to A Ratio 0.9 MV Deceleration Time 261.8 ms MV E' Velocity 7.3 cm/s Mitral E to MV E' Ratio 11.7 TR Peak Velocity 254.4 cm/s TR Peak Gradient 25.9 mmHg Right Ventricular Systolic Press 35.9 mmHg FINDINGS Left Ventricle Left ventricular ejection fraction is estimated at 55-60 %. Left ventricular cavity size normal. Mildly increased septal wall thickness. No obvious regional wall motion abnormalities. Right Ventricle Normal right ventricular size and function. Mild pulmonary hypertension. Right Atrium Normal right atrial size. No right atrial thrombus or mass seen. Left Atrium Normal left atrial size. No left atrial thrombus or mass present. Mitral Valve Structurally normal mitral valve. No mitral stenosis, regurgitation or prolapse. Aortic Valve Trileaflet aortic valve. No aortic valve stenosis or regurgitation. Tricuspid Valve Structurally normal tricuspid valve. Mild tricuspid regurgitation. Pulmonic Valve Structurally normal pulmonic valve. Trace pulmonic regurgitation. Pericardium No pericardial effusion. Aorta Normal size aortic root and proximal ascending aorta. CONCLUSIONS The normal biventricular dimension and systolic function No significant valvular abnormalities noted Previewed by: Dr. Cj Garvin MD (Electronically Signed) Final Date: 07 November 2023 12:51
[2023-11-07 13:11] LABS: Magnesium 2.2 mg/dL (1.5-2.4)
--- NOTE | 2023-11-07 13:24 | P.HPIM ---
History of Present Illness H&P Date: 11/07/23 History of present illness; patient 78-year-old gentleman past medical history significant for coronary disease, congestive heart failure, paroxysmal atrial fibrillation presented the ER because of increased swelling of lower extremities. Patient stated he was all right 1 week back when he started noticing that his legs were swollen, swelling of legs worsened over the week. Patient also getting short of breath on exertion. Patient denied any chest pain. There is no complaint of nausea, vomiting abdominal pain. Because of this swelling of lower extremity he went to his PCP who told him to come to the ER. Initial lab work done in the ER showed WBC 9.6, hemoglobin 13, platelet count 198, sodium 138, potassium 4.4, BUN 17, creatinine 1.17, magnesium 1.1 AST 20, ALT 16, pro BNP 384, troponin 0.012 EKG done in the ER showed heart rate of 95, no ST segment elevation or depression seen, no T-wave inversions seen. Chest x-ray done in the ER showed no acute cardiopulmonary process. COPD change Patient admitted to internal medicine service REVIEW OF SYSTEMS: CONSTITUTIONAL: No fever, no malaise, no fatigue. HEENT: No recent visual problems or hearing problems. Denied any sore throat. CARDIOVASCULAR: As mentioned HPI PULMONARY: As mentioned HPI GASTROINTESTINAL: No diarrhea, no nausea, no vomiting, no abdominal pain. NEUROLOGICAL: No headaches, no weakness, no numbness. HEMATOLOGICAL: Denies any bleeding or petechiae. GENITOURINARY: Denies any burning micturition, frequency, or urgency. MUSCULOSKELETAL/RHEUMATOLOGICAL: Denies any joint pain, swelling, or any muscle pain. ENDOCRINE: Denies any polyuria or polydipsia. The rest of the 14-point review of systems is negative. PHYSICAL EXAMINATION: GENERAL: The patient is alert and oriented x3, not in any acute distress. Well developed, well nourished. HEENT: Pupils are round and equally reacting to light. EOMI. No scleral icterus. No conjunctival pallor. Normocephalic, atraumatic. No pharyngeal erythema. No th yromegaly. CARDIOVASCULAR: S1 and S2 present. No murmurs, rubs, or gallops. PULMONARY: Chest is clear to auscultation, no wheezing or crackles. ABDOMEN: Soft, nontender, nondistended, normoactive bowel sounds. No palpable organomegaly. MUSCULOSKELETAL: No joint swelling or deformity. EXTREMITIES: No cyanosis, 2+ pitting edema lower extremities bilaterally NEUROLOGICAL: Gross neurological examination did not reveal any focal deficits. SKIN: No rashes. Assessment and plan Acute on chronic heart failure with reduced EF, 40 to 45% Coronary artery disease with previous stenting of the LAD and RCA Ischemic cardiomyopathy Paroxysmal atrial fibrillation Hypertension Hyperlipidemia COPD Chronic hypoxic respiratory failure on home oxyge Hypomagnesemia Monitor vital signs Monitor CBC Monitor CMP Continue telemetry monitoring Strict I's and O's Daily weights Continue IV Lasix 40 mg every 8 Resume home meds Consult cardiology Labs and medication were reviewed.. Continue same treatment. Continue with symptomatic treatment. Resume home medication. Monitor labs and vitals. DVT and GI prophylaxis. Further recommendations as per clinical course of the patient Dictation was produced using [employer] dictation software. please excuse any grammatical, word or spelling errors. Past Medical History Past Medical History: Coronary Artery Disease (CAD), Chest Pain / Angina, COPD, Diabetes Mellitus, GERD/Reflux, GI Bleed, Hyperlipidemia, Hypertension, Myocardial Infarction ([place]), Skin Disorder Additional Past Medical History / Comment(s): Hx of rectal bleeding, rectal fissure; gout, bronchitis, uses O2 @ 2L [place]. +Covid 08/2020. Hx cysts on groin area. Last Myocardial Infarction Date:: 2005 History of Any Multi-Drug Resistant Organisms: None Reported Past Surgical History: Heart Catheterization With Stent Additional Past Surgical History / Comment(s): total 3 cardiac stents, surgery for cyst in rectal area, siddharth cataracts, uro lift, cysts removed from testicles, buttocks, and back, colonoscopy Past Anesthesia/Blood Transfusion Reactions: No Reported Reaction Date of Last Stent Placement:: 2005 Past Psychological History: No Psychological Hx Reported Smoking Status: Former smoker Past Alcohol Use History: Occasional Past Drug Use History: None Reported - Past Family History Father Family Medical History: Cancer Additional Family Medical History / Comment(s): lung cancer Mother Family Medical History: No Reported History Additional Family Medical History / Comment(s): Mother was healthy and lived to be in her 90s. Medications and Allergies Home Medications Medication Instructions Recorded Confirmed Type allopurinoL [Zyloprim] 100 mg PO DAILY 03/02/16 11/06/23 History Tamsulosin HCl [Flomax] 0.4 mg PO HS 12/29/17 11/06/23 History Rosuvastatin [Crestor] 20 mg PO DAILY 02/27/19 11/06/23 History Pantoprazole [Protonix] 40 mg PO DAILY 03/03/19 11/06/23 History Montelukast Sodium [Singulair] 10 mg PO HS 08/16/20 11/06/23 History Aspirin EC [Ecotrin Low Dose] 81 mg PO DAILY 10/10/20 11/06/23 History Ascorbic Acid [Vitamin C] 500 mg PO DAILY 10/19/21 11/06/23 History Cholecalciferol [Vitamin D3 (25 25 mcg PO DAILY 10/19/21 11/06/23 History Mcg = 1000 Iu)] Multivitamins, Thera [Multivitamin 1 tab PO DAILY 10/19/21 11/06/23 History (formulary)] metFORMIN HCL [Glucophage] 500 mg PO BID 10/19/21 11/06/23 History Albuterol Inhaler [Ventolin Hfa 2 puff INHALATION RT-Q6H PRN 03/19/22 11/06/23 History Inhaler] Ipratropium-Albuterol Nebulize 3 ml INHALATION RT-Q4H PRN 03/19/22 11/06/23 History [Duoneb 0.5 mg-3 mg/3 ml Soln] Fluticasone/Umeclidin/Vilanter 1 puff INHALATION RT-DAILY 05/23/23 11/06/23 History [Trelegy Ellipta 200-62.5-25] Acetaminophen Tab [Tylenol] 650 mg PO Q4HR PRN tab 05/25/23 11/06/23 Rx Ipratropium-Albuterol Nebulize 3 ml INHALATION RT-QID #100 each 05/25/23 11/06/23 Rx [Duoneb 0.5 mg-3 mg/3 ml Soln] Potassium Chloride [K-Tab ER] 20 meq PO DAILY 30 Days #30 tab 05/25/23 11/06/23 Rx Apixaban [Eliquis] 5 mg PO BID tab 06/14/23 11/06/23 Rx Bumetanide [BUMEX] 1 mg PO DAILY tab 06/14/23 11/06/23 Rx Melatonin 5 mg PO HS PRN tab 06/14/23 11/06/23 Rx Spironolactone [Aldactone] 12.5 mg PO DAILY tab 06/14/23 11/06/23 Rx polyethylene glycoL 3350 [Miralax] 17 gm PO DAILY PRN packet 06/14/23 11/06/23 Rx Amiodarone [Cordarone] 200 mg PO DAILY 11/06/23 11/06/23 History Levothyroxine Sodium [Synthroid] 25 mcg PO DAILY 11/06/23 11/06/23 History Sacubitril/Valsartan [Entresto 24 1 tab PO BID 11/06/23 11/06/23 History mg-26 mg Tablet] Sulfamethox-Tmp 800-160Mg [Bactrim 1 tab PO Q12HR 11/06/23 11/06/23 History DS 800-160 mg] predniSONE See Taper PO DIRECTED 11/06/23 11/06/23 History Allergies Allergy/AdvReac Type Severity Reaction Status Date / Time No Known Allergies Allergy Verified 11/06/23 13:30 Physical Exam Vitals: Vital Signs Temp Pulse Pulse Resp BP BP Pulse Ox 11/07/23 11:46 76 11/07/23 11:37 76 11/07/23 08:19 80 11/07/23 08:10 78 11/07/23 07:48 97.4 F L 73 20 118/71 98 11/07/23 02:16 98.0 F 77 16 103/65 98 11/06/23 20:50 98.0 F 79 16 126/72 98 11/06/23 16:44 97.6 F 84 17 149/84 98 11/06/23 15:57 79 22 130/68 94 L 11/06/23 14:43 86 18 127/75 93 L Intake and Output 11/06/23 11/07/23 11/07/23 22:59 06:59 14:59 Intake Total 118 Balance 118 Intake: Oral 118 Other: # Voids 1 2 Results CBC & Chem 7: 11/07/23 07:13 11/07/23 07:13 Labs: Abnormal Lab Results - Last 24 Hours (Table) 11/06/23 11/07/23 11/07/23 Range/Units 17:03 07:13 07:13 RBC 3.78 L (4.40-5.60) X 10*6/uL Hgb 11.9 L (13.0-17.0) g/dL Hct 36.0 L (39.6-50.0) % MPV 9.1 L (9.5-12.2) FL Immature Gran # 0.06 H (0.00-0.04) X 10*3/uL Est GFR (CKD-EPI) 51 L (>=60) BUN/Creatinine Ratio 11.93 L (12.00-20.00) Ratio POC Glucose (mg/dL) 228 H (70-110) mg/dL Calcium 8.5 L (8.7-10.3) mg/dL AST 13 L (14-35) U/L Total Protein 5.4 L (6.2-8.2) g/dL
[2023-11-07] MEDS: SENNOSIDES 8.6 MG TAB PO PRN (15:52)
[2023-11-07 17:16] LABS: Glucose,Whole Blood 127 mg/dL (70-110)
[2023-11-07 20:17] VITALS: RESP 16
[2023-11-08 02:31] VITALS: TEMP 97.5
[2023-11-08 06:03] LABS: Glucose,Whole Blood 112 mg/dL (70-110)
[2023-11-08 08:04] VITALS: BP 107/69
[2023-11-08 08:38] LABS: BUN/Creat Ratio 10.73 Ratio (12.00-20.00); Blood Urea Nitrogen 16.1 mg/dL (9.0-27.0); Carbon Dioxide 22.5 mmol/L (21.6-31.8); Chloride 104 mmol/L (96-109); Glucose 111 mg/dL (70-110); Potassium 4.5 mmol/L (3.5-5.5); Sodium 140 mmol/L (135-145)
[2023-11-08 08:39] LABS: Calcium 8.4 mg/dL (8.7-10.3)
--- NOTE | 2023-11-08 10:31 | P.PN ---
Subjective HISTORY OF PRESENT ILLNESS: This is a 78-year-old male with a past medical history significant for coronary artery disease with previous stenting, ischemic cardiomyopathy, congestive heart failure, paroxysmal atrial fibrillation, hypertension, hyperlipidemia, COPD, and chronic hypoxic respiratory failure on home oxygen. Patient follows in the office with Dr. Garvin. We have been asked to see the patient in consultation for congestive heart failure. Patient examined at the bedside. Patient states he went to his PCP yesterday for routine visit and he was sent to the ER by his physician due to increased lower extremity edema. The patient states he has noticed increased swelling in his legs over the past week. He denies any chest pain or pressure. He denies any worsening shortness of breath. He states he has been compliant with all of his medications including his diuretics. He states that he does follow a low-sodium diet at home. DIAGNOSTICS: - EKG reveals sinus mechanism with no signs of acute ischemia. - Chest xray negative for acute process. COPD changes.. - Laboratory data: WBC 6.75. Hemoglobin 11.9. Platelet count 209. D-dimer 0.30. Sodium 140. Potassium 4.0. BUN 16.7. Troponin negative x 3 - Current home cardiac medications include Entresto 24-26 mg twice a day, amiodarone 200 mg daily, Eliquis 5 mg twice a day, aspirin 81 mg daily, Bumex 1 mg daily, rosuvastatin 20 mg daily, spironolactone 12.5 mg daily. - Most recent echocardiogram obtained in May 2023 revealed ejection fraction 4045%, mild MR mild TR - Cardiac catheterization history: 2008 with stenting of the LAD and RCA 11/08/2023 Patient examined this morning the bedside. Patient denies chest pain or pressure. He denies shortness of breath. He reports improvement in his lower extremity edema. He remains on IV diuretics. Vital signs are stable. Echocardiogram completed revealing ejection fraction 55 to 60% with mild TR. PHYSICAL EXAM: VITAL SIGNS: Reviewed. GENERAL: Well-developed in no acute distress. HEENT: Head is normocephalic. Pupils are equal, round. Sclerae anicteric. Mucous membranes of the mouth are moist. Neck supple. No JVD or thyromegaly LUNGS: Respirations even and unlabored. Lungs essentially clear to auscultation bilaterally. HEART: Regular rate and rhythm. S1 and S2 heard. ABDOMEN: Soft. Nondistended. Nontender. EXTREMITIES: Normal range of motion. No clubbing or cyanosis. Peripheral pulses intact. 3-4+ pitting bilateral lower extremity edema NEUROLOGIC: Awake and alert. Oriented x 3. ASSESSMENT: Increased lower extremity edema Acute on chronic heart failure with previously reduced EF, 40 to 45%, now with improved/preserved EF 55 to 60% Coronary artery disease with previous stenting of the LAD and RCA Ischemic cardiomyopathy Paroxysmal atrial fibrillation Hypertension Hyperlipidemia COPD Chronic hypoxic respiratory failure on home oxygen PLAN: Continue current cardiac medications Discontinue IV diuretics Increase oral diuretics to Bumex 1 mg twice a day upon discharge Patient may be discharged home today from a cardiac standpoint He is to follow-up postdischarge in the office with Dr. Garvin Nurse practitioner note has been reviewed by physician. Signing provider agrees with the documented findings, assessment, and plan of care documented by [employer] as a scribe. Objective - Vital Signs Vital signs: Vital Signs Temp 97.5 F L 11/08/23 08:00 Pulse 102 H 11/08/23 08:33 Resp 16 11/08/23 08:00 BP 107/69 11/08/23 08:00 Pulse Ox 98 11/08/23 08:22 FiO2 Intake & Output 11/07/23 11/08/23 11/08/23 18:59 06:59 18:59 Intake Total 236 358 Balance 236 358 Weight 95.6 kg Intake: Oral 236 358 Other: # Bowel Movements 1 - Labs CBC & Chem 7: 11/07/23 07:13 11/08/23 06:00 Labs: Abnormal Lab Results - Last 24 Hours (Table) 11/07/23 11/08/23 11/08/23 Range/Units 17:14 06:00 06:02 Anion Gap 13.50 H (4.00-12.00) mmol/L Est GFR (CKD-EPI) 47 L (>=60) BUN/Creatinine Ratio 10.73 L (12.00-20.00) Ratio Glucose 111 H (70-110) mg/dL POC Glucose (mg/dL) 127 H 112 H (70-110) mg/dL Calcium 8.4 L (8.7-10.3) mg/dL
[2023-11-08 11:56] VITALS: PULSE 102
--- NOTE | 2023-11-08 12:40 | P.DS ---
Providers Date of admission: 11/06/23 14:08 Expected date of discharge: 11/08/23 Attending physician: Tone Perea MD Consults: 11/06/23 15:11 Consult Physician Routine Consulting Provider: Bc Beltran Consult Reason/Comments: chf Do you want consulting provider notified?: Yes Primary care physician: [facility] Course: Discharge diagnoses; Acute on chronic heart failure with reduced EF, 40 to 45% Coronary artery disease with previous stenting of the LAD and RCA Ischemic cardiomyopathy Paroxysmal atrial fibrillation Hypertension Hyperlipidemia COPD Chronic hypoxic respiratory failure on home oxyge Hypomagnesemia Hospital course; patient 78-year-old gentleman past medical history significant for coronary disease, congestive heart failure, paroxysmal atrial fibrillation presented the ER because of increased swelling of lower extremities. Patient stated he was all right 1 week back when he started noticing that his legs were swollen, swelling of legs worsened over the week. Patient also getting short of breath on exertion. Patient denied any chest pain. There is no complaint of nausea, vomiting abdominal pain. Because of this swelling of lower extremity he went to his PCP who told him to come to the ER. Initial lab work done in the ER showed WBC 9.6, hemoglobin 13, platelet count 198, sodium 138, potassium 4.4, BUN 17, creatinine 1.17, magnesium 1.1 AST 20, ALT 16, pro BNP 384, troponin 0.012 EKG done in the ER showed heart rate of 95, no ST segment elevation or depression seen, no T-wave inversions seen. Chest x-ray done in the ER showed no acute cardiopulmonary process. COPD change Patient admitted to internal medicine service 11/07. Patient seen and examined. Swelling of legs improved a lot. Cardiology recommend discharging patient on oral Bumex 1 mg twice a day. Outpatient follow with PCP and cardiology PHYSICAL EXAMINATION: GENERAL: The patient is alert and oriented x3, not in any acute distress. Well developed, well nourished. HEENT: Pupils are round and equally reacting to light. EOMI. No scleral icterus. No conjunctival pallor. Normocephalic, atraumatic. No pharyngeal erythema. No thyromegaly. CARDIOVASCULAR: S1 and S2 present. No murmurs, rubs, or gallops. PULMONARY: Chest is clear to auscultation, no wheezing or crackles. ABDOMEN: Soft, nontender, nondistended, normoactive bowel sounds. No palpable organomegaly. MUSCULOSKELETAL: No joint swelling or deformity. EXTREMITIES: No cyanosis, clubbing, or pedal edema. NEUROLOGICAL: Gross neurological examination did not reveal any focal deficits. SKIN: No rashes. Dictation was produced using [employer] dictation software. please excuse any grammatical, word or spelling errors. Patient Condition at Discharge: Good Plan - Discharge Summary Discharge Rx Participant: Yes New Discharge Prescriptions: New Bumetanide [Bumex] 1 mg PO BID #60 tablet Continue allopurinoL [Zyloprim] 100 mg PO DAILY Tamsulosin HCl [Flomax] 0.4 mg PO HS Rosuvastatin [Crestor] 20 mg PO DAILY Pantoprazole [Protonix] 40 mg PO DAILY Aspirin EC [Ecotrin Low Dose] 81 mg PO DAILY Multivitamins, Thera [Multivitamin (formulary)] 1 tab PO DAILY Ipratropium-Albuterol Nebulize [Duoneb 0.5 mg-3 mg/3 ml Soln] 3 ml INHALATION RT-Q4H PRN PRN Reason: Shortness Of Breath Potassium Chloride [K-Tab ER] 20 meq PO DAILY 30 Days #30 tab Sulfamethox-Tmp 800-160Mg [Bactrim DS 800-160 mg] 1 tab PO Q12HR predniSONE See Taper PO DIRECTED Sacubitril/Valsartan [Entresto 24 mg-26 mg Tablet] 1 tab PO BID Amiodarone [Cordarone] 200 mg PO DAILY Montelukast Sodium [Singulair] 10 mg PO HS Cholecalciferol [Vitamin D3 (25 Mcg = 1000 Iu)] 25 mcg PO DAILY Ascorbic Acid [Vitamin C] 500 mg PO DAILY metFORMIN HCL [Glucophage] 500 mg PO BID Albuterol Inhaler [Ventolin Hfa Inhaler] 2 puff INHALATION RT-Q6H PRN PRN Reason: Shortness Of Breath Fluticasone/Umeclidin/Vilanter [Trelegy Ellipta 200-62.5-25] 1 puff INHALATION RT-DAILY Ipratropium-Albuterol Nebulize [Duoneb 0.5 mg-3 mg/3 ml Soln] 3 ml INHALATION RT-QID #100 each Acetaminophen Tab [Tylenol] 650 mg PO Q4HR PRN tab PRN Reason: Mild Pain Or Fever > 100.5 Spironolactone [Aldactone] 12.5 mg PO DAILY tab Apixaban [Eliquis] 5 mg PO BID tab Melatonin 5 mg PO HS PRN tab PRN Reason: Insomnia polyethylene glycoL 3350 [Miralax] 17 gm PO DAILY PRN packet PRN Reason: Constipation Levothyroxine Sodium [Synthroid] 25 mcg PO DAILY Discontinued Bumetanide [BUMEX] 1 mg PO DAILY tab Discharge Medication List allopurinoL [Zyloprim] 100 mg PO DAILY 03/02/16 [History] Tamsulosin HCl [Flomax] 0.4 mg PO HS 12/29/17 [History] Rosuvastatin [Crestor] 20 mg PO DAILY 02/27/19 [History] Pantoprazole [Protonix] 40 mg PO DAILY 03/03/19 [History] Montelukast Sodium [Singulair] 10 mg PO HS 08/16/20 [History] Aspirin EC [Ecotrin Low Dose] 81 mg PO DAILY 10/10/20 [History] Ascorbic Acid [Vitamin C] 500 mg PO DAILY 10/19/21 [History] Cholecalciferol [Vitamin D3 (25 Mcg = 1000 Iu)] 25 mcg PO DAILY 10/19/21 [History] Multivitamins, Thera [Multivitamin (formulary)] 1 tab PO DAILY 10/19/21 [History] metFORMIN HCL [Glucophage] 500 mg PO BID 10/19/21 [History] Albuterol Inhaler [Ventolin Hfa Inhaler] 2 puff INHALATION RT-Q6H PRN 03/19/22 [History] Ipratropium-Albuterol Nebulize [Duoneb 0.5 mg-3 mg/3 ml Soln] 3 ml INHALATION RT-Q4H PRN 03/19/22 [History] Fluticasone/Umeclidin/Vilanter [Trelegy Ellipta 200-62.5-25] 1 puff INHALATION RT-DAILY 05/23/23 [History] Acetaminophen Tab [Tylenol] 650 mg PO Q4HR PRN tab 05/25/23 [Rx] Ipratropium-Albuterol Nebulize [Duoneb 0.5 mg-3 mg/3 ml Soln] 3 ml INHALATION RT-QID #100 each 05/25/23 [Rx] Potassium Chloride [K-Tab ER] 20 meq PO DAILY 30 Days #30 tab 05/25/23 [Rx] Apixaban [Eliquis] 5 mg PO BID tab 06/14/23 [Rx] Melatonin 5 mg PO HS PRN tab 06/14/23 [Rx] Spironolactone [Aldactone] 12.5 mg PO DAILY tab 06/14/23 [Rx] polyethylene glycoL 3350 [Miralax] 17 gm PO DAILY PRN packet 06/14/23 [Rx] Amiodarone [Cordarone] 200 mg PO DAILY 11/06/23 [History] Levothyroxine Sodium [Synthroid] 25 mcg PO DAILY 11/06/23 [History] Sacubitril/Valsartan [Entresto 24 mg-26 mg Tablet] 1 tab PO BID 11/06/23 [History] Sulfamethox-Tmp 800-160Mg [Bactrim DS 800-160 mg] 1 tab PO Q12HR 11/06/23 [History] predniSONE See Taper PO DIRECTED 11/06/23 [History] Bumetanide [Bumex] 1 mg PO BID #60 tablet 11/08/23 [Rx] Follow up Appointment(s)/Referral(s): Cj Garvin MD [STAFF PHYSICIAN] - 1 Week Deanna Kate MD [Primary Care Provider] - 1-2 days Discharge Disposition: HOME SELF-CARE
[2023-11-08] MEDS ORDERED: BUMETANIDE 1 MG TAB PO SCH (16:00)
--- NOTE | 2023-11-09 23:12 | CDI ---
Documentation Clarification Form Date: 11/09/2023 10:58:58 PM From: Nikki Yang Phone: Admit Date: 11/06/2023 02:08:00 PM Patient Name: Salvatore Aguilar Visit Number: [id number] Discharge Date: 11/08/2023 01:47:00 PM ATTENTION: The Clinical Documentation Specialists (CDI) and [facility] Coding Staff appreciate your assistance in clarifying documentation. Please respond to the clarification below the line at the bottom and electronically sign. The CDI & [facility] Coding staff will review the response and follow-up if needed. Please note: Queries are made part of the Legal Health Record. If you have any questions, please contact the author of this message via ITS. Dr. Tone Perea Your patient has the documented: Acute on chronic heart failure with reduced EF per Consult 11/06 and H&P ACHFwith previouslyreducedEF, 40 to 45%, now with improved/preserved EF 55 to 60% Progress Note 11/07 Clarification regarding the type of CHF is requested. History/Risk Factors: 78yo M, CAD, Hx HI sp stent, ICM, PAF, HTN, HLD, COPD, CHRF on O2 Clinical Indicators: VS/Pulse OX: 91-93 BNP: 384 Echo Results: 11/06 The normal biventricular dimension and systolic function. No significantvalvularabnormalitiesnoted. Most recentechocardiogramobtained in May 2023 revealed EF 40-45%, mild MR mild TR Chest x ray: Heart/mediastinum: Cardiomediastinal silhouette is unremarkable. Treatment: Continue current cardiac medications. Discontinue IV diuretics. Increase oral diuretics to Bumex 1 mg twice a day upon dc. Patient may be dc home today from a cardiac standpoint. He is tofollow-uppost dc in the office withDr. Garvin In your professional opinion, can you please clarify the type of CHF if known? [ x] Acute on Chronic Systolic Heart Failure (reduced EF) [ ] Acute on Chronic Diastolic Heart Failure (preserved EF) [ ] Acute on Chronic Heart Failure Systolic & Diastolic Heart Failure [ ] Other, please specify [ ] Unable to determine (Template Last Revised: June 2020) MTDD
== END 2023-11-08 13:47 | disposition home or self-care (01) | DRG 291 ==
LOC: EC 11:09 → 5NMEDONC 14:08 → 6NMEDSUR 15:56
PROVIDERS: ADMIT Internal Medicine; ATTEND Internal Medicine
DX: I11.0 Hypertensive heart disease with heart failure (principal); I50.23 Acute on chronic systolic (congestive) heart failure; J96.11 Chronic respiratory failure with hypoxia; I48.0 Paroxysmal atrial fibrillation; J44.9 Chronic obstructive pulmonary disease, unspecified; Z79.01 Long term (current) use of anticoagulants; Z99.81 Dependence on supplemental oxygen; I25.10 Atherosclerotic heart disease of native coronary artery without angina pectoris; I25.5 Ischemic cardiomyopathy; E78.5 Hyperlipidemia, unspecified; E83.42 Hypomagnesemia; Z95.5 Presence of coronary angioplasty implant and graft; I25.2 Old myocardial infarction; Z86.16 Personal history of COVID-19; Z87.891 Personal history of nicotine dependence; Z79.82 Long term (current) use of aspirin; Z79.84 Long term (current) use of oral hypoglycemic drugs; Z79.890 Hormone replacement therapy; Z79.899 Other long term (current) drug therapy; Z79.51 Long term (current) use of inhaled steroids
CPT/HCPCS: 36415; 71046; 80048; 80053; 83735; 83880; 84484; 85025; 85379; 93005; 93306; 94640; 94760; 96365; 96366; 96375; 99285

== ENCOUNTER 2023-12-10 11:36 | Emergency (ER) | payer MEDICARE ==
[2023-12-10 11:47] VITALS: RESP 18
[2023-12-10] MEDS: CYCLOBENZAPRINE 5 MG TAB PO STA (12:16)
[2023-12-10] MEDS: LIDOCAINE 4% PATCH TOPICAL ONE (12:16)
--- NOTE | 2023-12-10 12:25 | ED ---
Back Pain HPI - General Chief Complaint: Back Pain/Injury Stated Complaint: Back pain Time Seen by Provider: 12/10/23 12:24 Source: patient, RN notes reviewed Mode of arrival: ambulatory Limitations: no limitations - History of Present Illness Initial Comments: 78-year-old male presented to the ER with a chief complaint of back pain. He states this been ongoing for the past 1-1/2 to 2 weeks. He is followed up with Dr. Perea and Dr. Matos who has started him on calcium and Tylenol for symptom control. Patient was placed on calcium as he has been on prednisone long-term due to COPD. He describes it as a sharp intermittent pain made worse with movement. He denies any radiation of the pain. He denies any saddle paresthesias, bowel or bladder incontinence, fevers or history of IV drug use. Denies any history of kidney stones. Denies any urinary complaints or known injuries. - Related Data Home Medications Medication Instructions Recorded Confirmed allopurinoL [Zyloprim] 100 mg PO DAILY 03/02/16 11/06/23 Tamsulosin HCl [Flomax] 0.4 mg PO HS 12/29/17 11/06/23 Rosuvastatin [Crestor] 20 mg PO DAILY 02/27/19 11/06/23 Pantoprazole [Protonix] 40 mg PO DAILY 03/03/19 11/06/23 Montelukast Sodium [Singulair] 10 mg PO HS 08/16/20 11/06/23 Aspirin EC [Ecotrin Low Dose] 81 mg PO DAILY 10/10/20 11/06/23 Ascorbic Acid [Vitamin C] 500 mg PO DAILY 10/19/21 11/06/23 Cholecalciferol [Vitamin D3 (25 25 mcg PO DAILY 10/19/21 11/06/23 Mcg = 1000 Iu)] Multivitamins, Thera [Multivitamin 1 tab PO DAILY 10/19/21 11/06/23 (formulary)] metFORMIN HCL [Glucophage] 500 mg PO BID 10/19/21 11/06/23 Albuterol Inhaler [Ventolin Hfa 2 puff INHALATION RT-Q6H PRN 03/19/22 11/06/23 Inhaler] Ipratropium-Albuterol Nebulize 3 ml INHALATION RT-Q4H PRN 10/30/22 06/18/24 [Duoneb 0.5 mg-3 mg/3 ml Soln] Fluticasone/Umeclidin/Vilanter 1 puff INHALATION RT-DAILY 05/23/23 11/06/23 [Trelegy Ellipta 200-62.5-25] Amiodarone [Cordarone] 200 mg PO DAILY 11/06/23 11/06/23 Levothyroxine Sodium [Synthroid] 25 mcg PO DAILY 11/06/23 11/06/23 Sacubitril/Valsartan [Entresto 24 1 tab PO BID 11/06/23 11/06/23 mg-26 mg Tablet] Sulfamethox-Tmp 800-160Mg [Bactrim 1 tab PO Q12HR 11/06/23 11/06/23 DS 800-160 mg] predniSONE See Taper PO DIRECTED 11/06/23 11/06/23 Previous Rx's Medication Instructions Recorded Acetaminophen Tab [Tylenol] 650 mg PO Q4HR PRN tab 05/25/23 Ipratropium-Albuterol Nebulize 3 ml INHALATION RT-QID #100 each 05/25/23 [Duoneb 0.5 mg-3 mg/3 ml Soln] Potassium Chloride [K-Tab ER] 20 meq PO DAILY 30 Days #30 tab 05/25/23 Apixaban [Eliquis] 5 mg PO BID tab 06/14/23 Melatonin 5 mg PO HS PRN tab 06/14/23 Spironolactone [Aldactone] 12.5 mg PO DAILY tab 06/14/23 polyethylene glycoL 3350 [Miralax] 17 gm PO DAILY PRN packet 06/14/23 Bumetanide [Bumex] 1 mg PO BID #60 tablet 11/08/23 Acetaminophen Tab [Tylenol Tab] 500 mg PO Q6H #30 tablet 12/10/23 Cyclobenzaprine [Flexeril] 5 mg PO TID PRN #15 tablet 12/10/23 Lidocaine 4% Patch 1 patch TOPICAL HS #30 patch 12/10/23 Allergies Allergy/AdvReac Type Severity Reaction Status Date / Time No Known Allergies Allergy Verified 12/10/23 11:47 Review of Systems ROS Statement: Those systems with pertinent positive or pertinent negative responses have been documented in the HPI. ROS Other: All systems not noted in ROS Statement are negative. Past Medical History Past Medical History: Coronary Artery Disease (CAD), Chest Pain / Angina, COPD, Diabetes Mellitus, GERD/Reflux, GI Bleed, Hyperlipidemia, Hypertension, Myocardial Infarction (DC), Skin Disorder Additional Past Medical History / Comment(s): Hx of rectal bleeding, rectal fissure; gout, bronchitis, uses O2 @ 2L [place]. +Covid 08/2020. Hx cysts on groin area. Last Myocardial Infarction Date:: approx 2005 History of Any Multi-Drug Resistant Organisms: None Reported Past Surgical History: Heart Catheterization With Stent Additional Past Surgical History / Comment(s): total 3 cardiac stents, surgery for cyst in rectal area, siddharth cataracts, uro lift, cysts removed from testicles, buttocks, and back, colonoscopy Past Anesthesia/Blood Transfusion Reactions: No Reported Reaction Date of Last Stent Placement:: 2005 Past Psychological History: No Psychological Hx Reported Smoking Status: Former smoker Past Alcohol Use History: Occasional Past Drug Use History: None Reported - Past Family History Father Family Medical History: Cancer Additional Family Medical History / Comment(s): lung cancer Mother Family Medical History: No Reported History Additional Family Medical History / Comment(s): Mother was healthy and lived to be in her 90s. General Exam General appearance: alert, in no apparent distress Neck exam: Present: normal inspection. Absent: tenderness, meningismus, lymphadenopathy Respiratory exam: Present: other (Coarse breath sounds bilaterally) Cardiovascular Exam: Present: regular rate, normal rhythm, normal heart sounds. Absent: systolic murmur, diastolic murmur, rubs, gallop, clicks Extremities exam: Present: normal inspection, full ROM, normal capillary refill, other (2+ bilateral distal pedis pulses. Sensation intact. Bilateral lower extremity strength is equal. Normal reflexes. 1+ pitting edema to siddharth LE.). Absent: tenderness, pedal edema, joint swelling, calf tenderness Back exam: Present: normal inspection, vertebral tenderness (Tenderness to lumbar spine. No rash, wounds, erythema or bruising present) Neurological exam: Present: alert, oriented X3, CN II-XII intact Skin exam: Present: warm, dry, intact, normal color. Absent: rash Course Vital Signs 12/10/23 12/10/23 11:43 13:00 Temperature 98.2 F 97.9 F Pulse Rate 89 76 Respiratory 18 18 Rate Blood Pressure 144/74 136/76 O2 Sat by Pulse 97 97 Oximetry Medical Decision Making - Medical Decision Making Was pt. sent in by a medical professional or institution (, [facility], SUPERVISOR TRAVEL TRAILER, urgent care, hospital, or long-term...) When possible be specific @ -No Did you speak to anyone other than the patient for history (EMS, parent, family, police, friend...)? What history was obtained from this source @ -No Did you review nursing and triage notes (agree or disagree)? Why? @ -I reviewed and agree with nursing and triage notes Were old charts reviewed (outside hosp., previous admission, EMS record, old EKG, old radiological studies, urgent care reports/EKG's, long-term records)? Report findings @ -No old charts were reviewed Differential Diagnosis (chest pain, altered mental status, abdominal pain women, abdominal pain men, vaginal bleeding, weakness, fever, dyspnea, syncope, headache, dizziness, GI bleed, back pain, seizure, CVA, palpatations, mental health, musculoskeletal)? @ -Differential Back Pain:Strain, zoster, cauda equina syndrome, epidural abscess, vertebral osteomyelitis, discitis, fracture, subluxation, disc herniation, DJD, spinal stenosis, dissection, AAA, pancreatitis, peptic ulcer disease, pyelonephritis, kidney stone, this is not meant to be an all-inclusive list. EKG interpreted by me (3pts min.). @ -None X-rays interpreted by me (1pt min.). @ -Lumbar spine x-rays showing an age-indeterminate mild superior endplate compression deformity. Diffuse osteopenia. Multilevel mild degenerative disc disease with facet arthropathy. CT interpreted by me (1pt min.). @ -None done U/S interpreted by me (1pt. min.). @ -None done What testing was considered but not performed or refused? (CT, X-rays, U/S, labs)? Why? @ -None What meds were considered but not given or refused? Why? @ -None Did you discuss the management of the patient with other professionals (professionals i.e. [employer] Garza, SUPERVISOR TRAVEL TRAILER, lab, RT, psych nurse, social media director, healthcare technician, teacher, policy officer, medical case worker)? Give summary @ -No Was smoking cessation discussed for >3mins.? @ -No Was critical care preformed (if so, how long)? @ -No Were there social determinants of health that impacted care today? How? (Homelessness, low income, unemployed, alcoholism, drug addiction, transportation, low edu. Level, literacy, decrease access to med. care, correction, rehab)? @ -No Was there de-escalation of care discussed even if they declined (Discuss DNR or withdrawal of care, Hospice)? DNR status @ -No What co-morbidities impacted this encounter? (DM, HTN, Smoking, COPD, CAD, Cancer, CVA, ARF, Chemo, Hep., AIDS, mental health diagnosis, sleep apnea, morbid obesity)? @ -COPD Was patient admitted / discharged? Hospital course, mention meds given and route, prescriptions, significant lab abnormalities, going to OR and other pertinent info. @ -Discharge. 78-year-old male presented to the ER with a chief complaint of back pain. History and physical exam completed. Vitals stable. Patient in no signs of acute distress and nontoxic-appearing. No red flag back pain symptoms indicative cauda equina syndrome. Bilateral lower extremities neurovascular intact. Bilateral LE strength equal. Bilateral LEs with normal reflexes. Tenderness to lumbar spine. No rash, wounds, erythema or bruising present. There is mild 1+ pitting edema to bilateral lower extremities patient states this is chronic in nature and is taking water pills daily. He denies any new or worsening shortness of breath. Patient received by mouth Flexeril and a lidocaine patch for symptom control in the ER. X-rays obtained showing an age- indeterminate superior endplate deformity to L2. As patient reports no new traumas or injuries and is showing no concerning signs of cauda equina syndrome. Patient is stable for discharge at this time. Upon reevaluation, patient resting company in exam room in no signs of acute distress. Patient reporting mildly improved pain. Lidocaine patches and Flexeril prescribed. Advise close follow-up with Dr. Huerta. Return parameters discussed. Patient discharged in stable condition. Patient verbally expressed understanding and agreement care plan. Case discussed with ED attending, Dr. Mccabe. Undiagnosed new problem with uncertain prognosis? @ -No Drug Therapy requiring intensive monitoring for toxicity (Heparin, Nitro, Insulin, Cardizem)? @ -No Were any procedures done? @ -No Diagnosis/symptom? @ -Endplate deformity/back pain Acute, or Chronic, or Acute on Chronic? @ -Acute Uncomplicated (without systemic symptoms) or Complicated (systemic symptoms)? @ -Uncomplicated Side effects of treatment? @ -No Exacerbation, Progression, or Severe Exacerbation? @ -No Poses a threat to life or bodily function? How? (Chest pain, USA, DC, pneumonia, PE, COPD, DKA, ARF, appy, cholecystitis, CVA, Diverticulitis, Homicidal, Suicidal, threat to staff... and all critical care pts) @ -No - Radiology Data Radiology results: report reviewed, image reviewed Disposition Clinical Impression: Musculoskeletal pain, Compression deformity of vertebra Disposition: HOME SELF-CARE Condition: Stable Instructions (If sedation given, give patient instructions): Acute Low Back Pain (ED) Additional Instructions: Follow-up with Dr. Huerta in the next 1-2 days. Return to the ER for any new or worsening symptoms. Prescriptions: Cyclobenzaprine [Flexeril] 5 mg PO TID PRN #15 tablet PRN Reason: Muscle Spasm Lidocaine 4% Patch 1 patch TOPICAL HS #30 patch Acetaminophen Tab [Tylenol Tab] 500 mg PO Q6H #30 tablet Is patient prescribed a controlled substance at d/c from ED?: No Referrals: Deanna Kate MD [Primary Care Provider] - 1-2 days Time of Disposition: 12:52
--- NOTE | 2023-12-10 12:39 | XR ---
EXAM TYPE: LUMBAR SPINE X RAY SERIES COMPARISON: NONE HISTORY: Pain TECHNIQUE: 4 views are submitted. FINDINGS: Alignment is anatomic. The pedicles are intact. The transverse processes are intact. There is diff use demineralization with multilevel mild degenerative disc disease and hypertrophic spurring. Vascul ar calcifications. Sclerosis involving bilateral iliac bones likely benign bone island or reactive. M ild superior endplate deformity of L2 of indeterminate age. IMPRESSION: 1. Multilevel mild degenerative disc disease and facet arthropathy. 2. Age-indeterminate mild superior endplate compression deformity. Correlate with MRI as clinically w arranted. 3. Diffuse osteopenia.
[2023-12-10 13:13] VITALS: BP 136/76; PULSE 76; TEMP 97.9
== END 2023-12-10 13:34 | disposition home or self-care (01) ==
LOC: EC 11:36
DX: M43.9 Deforming dorsopathy, unspecified (principal); J44.9 Chronic obstructive pulmonary disease, unspecified; Z87.891 Personal history of nicotine dependence
CPT/HCPCS: 72100; 99283

== ENCOUNTER 2023-12-14 12:03 | Emergency (ER) | payer MEDICARE ==
[2023-12-14 13:24] VITALS: RESP 18
[2023-12-14] MEDS: HYDROmorphone 1 MG/ML 1 ML SYRINGE IVP STA ×2 (13:26→15:48)
[2023-12-14] MEDS: KETOROLAC 15 MG/ML 1 ML VIAL IVP STA (13:26)
[2023-12-14] MEDS: ORPHENADRINE 30 MG/ML 2 ML VIAL IVP STA (13:27)
--- NOTE | 2023-12-14 14:14 | ED ---
Back Pain HPI - General Chief Complaint: Back Pain/Injury Stated Complaint: back pain Time Seen by Provider: 12/14/23 12:50 Source: patient, RN notes reviewed Mode of arrival: ambulatory Limitations: no limitations - History of Present Illness Initial Comments: This is a 78-year-old male who presents to the emergency department for low back pain. States that it started 2 weeks ago. Denies any known injuries. He was evaluated here 4 days ago and states that the medication he was started on has not been effective. He was on prednisone for a long period of time for his respiratory troubles. States that he discontinued that a week ago as he was told that this could be contributing to his problem. Pain is worse on the right side. Denies any radiation of pain. Pain does not wrap around into the abdomen. Denies any loss of bowel/bladder control or saddle anesthesia. MD Complaint: back pain - Related Data Home Medications Medication Instructions Recorded Confirmed allopurinoL [Zyloprim] 100 mg PO DAILY 03/02/16 11/06/23 Tamsulosin HCl [Flomax] 0.4 mg PO HS 12/29/17 11/06/23 Rosuvastatin [Crestor] 20 mg PO DAILY 02/27/19 11/06/23 Pantoprazole [Protonix] 40 mg PO DAILY 03/03/19 11/06/23 Montelukast Sodium [Singulair] 10 mg PO HS 08/16/20 11/06/23 Aspirin EC [Ecotrin Low Dose] 81 mg PO DAILY 10/10/20 11/06/23 Ascorbic Acid [Vitamin C] 500 mg PO DAILY 10/19/21 11/06/23 Cholecalciferol [Vitamin D3 (25 25 mcg PO DAILY 10/19/21 11/06/23 Mcg = 1000 Iu)] Multivitamins, Thera [Multivitamin 1 tab PO DAILY 10/19/21 11/06/23 (formulary)] metFORMIN HCL [Glucophage] 500 mg PO BID 10/19/21 11/06/23 Albuterol Inhaler [Ventolin Hfa 2 puff INHALATION RT-Q6H PRN 03/19/22 11/06/23 Inhaler] Ipratropium-Albuterol Nebulize 3 ml INHALATION RT-Q4H PRN 03/19/22 11/06/23 [Duoneb 0.5 mg-3 mg/3 ml Soln] Fluticasone/Umeclidin/Vilanter 1 puff INHALATION RT-DAILY 05/23/23 11/06/23 [Trelegy Ellipta 200-62.5-25] Amiodarone [Cordarone] 200 mg PO DAILY 11/06/23 11/06/23 Levothyroxine Sodium [Synthroid] 25 mcg PO DAILY 11/06/23 11/06/23 Sacubitril/Valsartan [Entresto 24 1 tab PO BID 11/06/23 11/06/23 mg-26 mg Tablet] Sulfamethox-Tmp 800-160Mg [Bactrim 1 tab PO Q12HR 11/06/23 11/06/23 DS 800-160 mg] predniSONE See Taper PO DIRECTED 11/06/23 11/06/23 Previous Rx's Medication Instructions Recorded Acetaminophen Tab [Tylenol] 650 mg PO Q4HR PRN tab 05/25/23 Ipratropium-Albuterol Nebulize 3 ml INHALATION RT-QID #100 each 05/25/23 [Duoneb 0.5 mg-3 mg/3 ml Soln] Potassium Chloride [K-Tab ER] 20 meq PO DAILY 30 Days #30 tab 05/25/23 Apixaban [Eliquis] 5 mg PO BID tab 06/14/23 Melatonin 5 mg PO HS PRN tab 06/14/23 Spironolactone [Aldactone] 12.5 mg PO DAILY tab 06/14/23 polyethylene glycoL 3350 [Miralax] 17 gm PO DAILY PRN packet 06/14/23 Bumetanide [Bumex] 1 mg PO BID #60 tablet 11/08/23 Acetaminophen Tab [Tylenol Tab] 500 mg PO Q6H #30 tablet 12/10/23 Cyclobenzaprine [Flexeril] 5 mg PO TID PRN #15 tablet 12/10/23 Lidocaine 4% Patch 1 patch TOPICAL HS #30 patch 12/10/23 HYDROcodone/APAP 7.5-325MG [Vidalia 1 tab PO Q4-6H PRN 3 Days #18 tab 12/14/23 7.5-325] Meloxicam [Mobic] 15 mg PO DAILY PRN #30 tab 12/14/23 methocarbamoL [Robaxin-750] 1,500 mg PO TID PRN #30 tab 12/14/23 Allergies Allergy/AdvReac Type Severity Reaction Status Date / Time No Known Allergies Allergy Verified 12/14/23 12:17 Review of Systems ROS Statement: Those systems with pertinent positive or pertinent negative responses have been documented in the HPI. ROS Other: All systems not noted in ROS Statement are negative. Past Medical History Past Medical History: Coronary Artery Disease (CAD), Chest Pain / Angina, COPD, Diabetes Mellitus, GERD/Reflux, GI Bleed, Hyperlipidemia, Hypertension, Myocardial Infarction ([place]), Skin Disorder Additional Past Medical History / Comment(s): Hx of rectal bleeding, rectal fissure; gout, bronchitis, uses O2 @ 2L [place]. +Covid 08/2020. Hx cysts on groin area. Last Myocardial Infarction Date:: 2005 History of Any Multi-Drug Resistant Organisms: None Reported Past Surgical History: Heart Catheterization With Stent Additional Past Surgical History / Comment(s): total 3 cardiac stents, surgery for cyst in rectal area, siddharth cataracts, uro lift, cysts removed from testicles, buttocks, and back, colonoscopy Past Anesthesia/Blood Transfusion Reactions: No Reported Reaction Date of Last Stent Placement:: 2005 Past Psychological History: No Psychological Hx Reported Smoking Status: Former smoker Past Alcohol Use History: Occasional Past Drug Use History: None Reported - Past Family History Father Family Medical History: Cancer Additional Family Medical History / Comment(s): lung cancer Mother Family Medical History: No Reported History Additional Family Medical History / Comment(s): Mother was healthy and lived to be in her 90s. General Exam Limitations: no limitations General appearance: alert, in no apparent distress Head exam: Present: atraumatic, normocephalic, normal inspection Respiratory exam: Present: decreased breath sounds, prolonged expiratory Cardiovascular Exam: Present: regular rate, normal rhythm, normal heart sounds. Absent: systolic murmur, diastolic murmur, rubs, gallop, clicks GI/Abdominal exam: Present: soft, normal bowel sounds. Absent: distended, tenderness, guarding, rebound, rigid Back exam: Present: other (Tenderness to palpation of the right lower back) Neurological exam: Present: alert, oriented X3, CN II-XII intact Psychiatric exam: Present: normal affect, normal mood Skin exam: Present: warm, dry, intact, normal color. Absent: rash Course Vital Signs 12/14/23 12/14/23 12/14/23 12:14 13:22 14:52 Temperature 97.4 F L 97.6 F 97.8 F Pulse Rate 91 89 79 Respiratory 20 18 18 Rate Blood Pressure 146/83 142/86 137/88 O2 Sat by Pulse 98 98 98 Oximetry 12/14/23 15:50 Temperature 98 F Pulse Rate 79 Respiratory 18 Rate Blood Pressure 147/76 O2 Sat by Pulse 98 Oximetry Medical Decision Making - Medical Decision Making This is a 78 year old male who presents to the emergency department for back pain. Was pt. sent in by a medical professional or institution? @ -No Did you speak to anyone other than the patient for history? @ -No Did you review nursing and triage notes? @ -Yes, and I agree, it is accurate with regards to the patient's symptoms. Were old charts reviewed? @ -X-ray of the lumbar spine from 12/10/2023 demonstrating multilevel mild degenerative disc disease and an age-indeterminate mild superior endplate compression deformity. Differential Diagnosis? @ -Differential Back Pain: Strain, zoster, cauda equina syndrome, epidural abscess, vertebral osteomyelitis, discitis, fracture, subluxation, disc herniation, DJD, spinal stenosis, dissection, AAA, pancreatitis, peptic ulcer disease, pyelonephritis, kidney stone, this is not meant to be an all-inclusive list. EKG interpreted by me (3pts min.)? @ -Not obtained X-rays interpreted by me (1pt min.)? @ -Not obtained CT interpreted by me (1pt min.)? @ -CT scan of the lumbar spine obtained. My interpretation identifies an L2 compression deformity. U/S interpreted by me (1pt. min.)? @ -Not obtained What testing was considered but not performed? (CT, X-rays, U/S, labs)? Why? @ -None What meds were considered but not given? Why? @ -None Did you discuss the management of the patient with other professionals? @ -No Did you reconcile home meds? @ -No Was smoking cessation discussed for >3mins.? @ -No Was critical care preformed (if so, how long)? @ -No Were there social determinants of health that impacted care today? How? (Homelessness, low income, unemployed, alcoholism, drug addiction, transportation, low edu. Level, literacy, decrease access to med. care, half-way, rehab)? @ -No Was there de-escalation of care discussed even if they declined? (Discuss DNR or withdrawal of care, Hospice)? @ -No What co-morbidities impacted this encounter? (DM, HTN, Smoking, COPD, CAD, Cancer, CVA, Hep., AIDS, mental health diagnosis, sleep apnea, morbid obesity)? @ -DDD, osteoarthritis Was patient admitted / discharged? @ -Discharged. Given that symptoms have progressed, CT scan of the lumbar spine obtained. This demonstrates a moderate compression fracture of L2 with mild retropulsion. He also has mild spinal stenosis at the L3-L4 level and moderate spinal stenosis at L4-L5 level. Findings reviewed with the patient. He has no knowledge of a recent compression fracture. Pain was managed in the emergency department. Case management made the patient an appointment with orthopedics. This was scheduled with Dr. Sauer for 12/23. Rx for Mobic, Robaxin, and Vidalia provided for further management of the compression fracture. Case discussed with ED attending Dr. Turk. Return precautions reviewed in depth, the patient is instructed to return to the emergency department with any new, worsening, or concerning symptoms. Patient verbalized understanding. Undiagnosed new problem with uncertain prognosis? @ -None Drug Therapy requiring intensive monitoring for toxicity (Heparin, Nitro, Insulin, Cardizem)? @ -None Were any procedures done? @ -None Diagnosis/symptom? @ -L2 compression fracture Acute, or Chronic, or Acute on Chronic? @ -Acute Uncomplicated (without systemic symptoms) or Complicated (systemic symptoms)? @ -Uncomplicated Side effects of treatment? @ -None Exacerbation, Progression, or Severe Exacerbation] @ -Not applicable Poses a threat to life or bodily function? @ -The pain is limiting his ability to function. - Radiology Data Radiology results: report reviewed, image reviewed Disposition Clinical Impression: Compression fracture of L2 Disposition: HOME SELF-CARE Instructions (If sedation given, give patient instructions): Vertebral Compression Fracture (ED) Additional Instructions: Return to the emergency department with any new, worsening, or concerning symptoms. Begin taking the Mobic once daily for pain relief. Do not take any other anti-inflammatories such as ibuprofen with this. You can also take the Robaxin as 1 to 2 tablets up to 3-4 times daily. Be aware that this may make you drowsy. Use the Vidalia sparingly when your pain is the most severe. We made you an appointment with Dr. aSuer, the spinal specialist at [facility] on 12/23 at 11 AM. Prescriptions: Meloxicam [Mobic] 15 mg PO DAILY PRN #30 tab PRN Reason: Pain HYDROcodone/APAP 7.5-325MG [Vidalia 7.5-325] 1 tab PO Q4-6H PRN 3 Days #18 tab PRN Reason: Pain methocarbamoL [Robaxin-750] 1,500 mg PO TID PRN #30 tab PRN Reason: Pain Is patient prescribed a controlled substance at d/c from ED?: Yes When asked, does pt state using other controlled substances?: No If prescribed controlled substance>3 days was MAPS reviewed?: Prescribed <3 Days Referrals: Deanna Kate MD [Primary Care Provider] - 1-2 days Al Sauer DO [Doctor of Osteopathic Medicine] - 12/24/23 11:00 am (Please bring ID card and insurance to appointment. You will have new paitient paperwork to complete. ) Time of Disposition: 15:11
--- NOTE | 2023-12-14 14:15 | CT ---
EXAMINATION TYPE: CT lumbar spine wo con DATE OF EXAM: 12/14/2023 2:07 PM COMPARISON: None HISTORY: PT C/O BACK PAIN CT DLP: 1197.4 mGycm Automated exposure control for dose reduction was used. Unenhanced CT of the lumbar spine was performed. Bone and soft tissue window settings are submitted as well as coronal and sagittal reconstructions. Findings: There is a moderate compression fracture of L2 with 10-15% retropulsion. Remaining lumbar vertebral s egments are normal in height and alignment. The disc spaces are well-maintained. Secondary to thickening ligamentum flavum and circumferential disc bulge, there is moderate spinal st enosis at the L4-5 level and mild spinal stenosis at the L3-4 level. There are no focal disc herniations. There is no bony encroachment of the neural foramina. There is minimal facet degeneration in lower lumbar spine. IMPRESSION: 1. Moderate compression fracture of L2 with mild retropulsion. 2. Mild spinal stenosis at L3-4 level and moderate spinal stenosis at the L4-5 level. 3. No lumbar disc herniation. 4. No lumbar spine vertebral segment malalignment.
[2023-12-14 14:53] VITALS: PULSE 79
[2023-12-14 15:51] VITALS: BP 147/76; TEMP 98
== END 2023-12-14 16:16 | disposition home or self-care (01) ==
LOC: EC 12:03
DX: S32.020A Wedge compression fracture of second lumbar vertebra, initial encounter for closed fracture (principal); M19.90 Unspecified osteoarthritis, unspecified site; Z87.891 Personal history of nicotine dependence
CPT/HCPCS: 72131; 99284; 96374; 96375 ×2; J2360; J1170; J1885

== ENCOUNTER 2023-12-31 11:53 | Emergency (ER) | payer MEDICARE ==
[2023-12-31] MEDS ORDERED: ACET/COD 300 MG/30 MG STARTER PACK 6 TAB BTL PO ONE (12:46)
== END 2023-12-31 12:58 | disposition home or self-care (01) ==
LOC: EC 11:53
DX: M54.50 Low back pain, unspecified (principal)
CPT/HCPCS: 99283

== ENCOUNTER 2024-01-25 19:52 | Emergency (ER) | payer MEDICARE ==
[2024-01-25 20:14] VITALS: TEMP 97.6
--- NOTE | 2024-01-25 21:37 | ED ---
General Adult HPI - General Source: patient Mode of arrival: wheelchair Limitations: no limitations <Herman Terrazas - Last Filed: 01/25/24 21:37> - General Source: RN notes reviewed, old records reviewed Mode of arrival: wheelchair Limitations: no limitations - History of Present Illness -: days(s) Location: back, buttocks, left Severity scale (1-10): 5 Consistency: constant Improves with: none Worsens with: none Associated Symptoms: denies other symptoms Treatments Prior to Arrival: none <Isai Gould - Last Filed: 02/13/24 20:30> - General Chief complaint: Skin/Abscess/Foreign Body Stated complaint: Abcess on bottom Time Seen by Provider: 01/25/24 21:37 - History of Present Illness Initial comments: 78-year-old male presenting with chief complaint of pain and swelling to the left buttocks. Patient fell a few hours ago and was concerned due to this pain and swelling. (Herman Terrazas) This is a 78-year-old male to the ER for evaluation of left buttocks pain. Patient states he fell a few hours ago may be again earlier in the week but is having significant pain and swelling to the back history of abscess feels he may have a developing abscess (Isai Gould) - Related Data Home Medications Medication Instructions Recorded Confirmed allopurinoL [Zyloprim] 100 mg PO DAILY 03/02/16 11/06/23 Tamsulosin HCl [Flomax] 0.4 mg PO HS 12/29/17 11/06/23 Rosuvastatin [Crestor] 20 mg PO DAILY 02/27/19 11/06/23 Pantoprazole [Protonix] 40 mg PO DAILY 03/03/19 11/06/23 Montelukast Sodium [Singulair] 10 mg PO HS 08/16/20 11/06/23 Aspirin EC [Ecotrin Low Dose] 81 mg PO DAILY 10/10/20 11/06/23 Ascorbic Acid [Vitamin C] 500 mg PO DAILY 10/19/21 11/06/23 Cholecalciferol [Vitamin D3 (25 25 mcg PO DAILY 10/19/21 11/06/23 Mcg = 1000 Iu)] Multivitamins, Thera [Multivitamin 1 tab PO DAILY 10/19/21 11/06/23 (formulary)] metFORMIN HCL [Glucophage] 500 mg PO BID 10/19/21 11/06/23 Albuterol Inhaler [Ventolin Hfa 2 puff INHALATION RT-Q6H PRN 03/19/22 11/06/23 Inhaler] Ipratropium-Albuterol Nebulize 3 ml INHALATION RT-Q4H PRN 03/19/22 11/06/23 [Duoneb 0.5 mg-3 mg/3 ml Soln] Fluticasone/Umeclidin/Vilanter 1 puff INHALATION RT-DAILY 05/23/23 11/06/23 [Trelegy Ellipta 200-62.5-25] Amiodarone [Cordarone] 200 mg PO DAILY 11/06/23 11/06/23 Levothyroxine Sodium [Synthroid] 25 mcg PO DAILY 11/06/23 11/06/23 Sacubitril/Valsartan [Entresto 24 1 tab PO BID 11/06/23 11/06/23 mg-26 mg Tablet] Sulfamethox-Tmp 800-160Mg [Bactrim 1 tab PO Q12HR 11/06/23 11/06/23 DS 800-160 mg] predniSONE See Taper PO DIRECTED 11/06/23 11/06/23 Previous Rx's Medication Instructions Recorded Acetaminophen Tab [Tylenol] 650 mg PO Q4HR PRN tab 05/25/23 Ipratropium-Albuterol Nebulize 3 ml INHALATION RT-QID #100 each 05/25/23 [Duoneb 0.5 mg-3 mg/3 ml Soln] Potassium Chloride [K-Tab ER] 20 meq PO DAILY 30 Days #30 tab 05/25/23 Apixaban [Eliquis] 5 mg PO BID tab 06/14/23 Melatonin 5 mg PO HS PRN tab 06/14/23 Spironolactone [Aldactone] 12.5 mg PO DAILY tab 06/14/23 polyethylene glycoL 3350 [Miralax] 17 gm PO DAILY PRN packet 06/14/23 Bumetanide [Bumex] 1 mg PO BID #60 tablet 11/08/23 Acetaminophen Tab [Tylenol Tab] 500 mg PO Q6H #30 tablet 12/10/23 Cyclobenzaprine [Flexeril] 5 mg PO TID PRN #15 tablet 12/10/23 Lidocaine 4% Patch 1 patch TOPICAL HS #30 patch 12/10/23 HYDROcodone/APAP 7.5-325MG [Lamont 1 tab PO Q4-6H PRN 3 Days #18 tab 12/14/23 7.5-325] Meloxicam [Mobic] 15 mg PO DAILY PRN #30 tab 12/14/23 methocarbamoL [Robaxin-750] 1,500 mg PO TID PRN #30 tab 12/14/23 Allergies Allergy/AdvReac Type Severity Reaction Status Date / Time No Known Allergies Allergy Verified 12/14/23 12:17 Review of Systems ROS Other: All systems not noted in ROS Statement are negative. <Herman Terrazas - Last Filed: 01/25/24 21:37> ROS Other: All systems not noted in ROS Statement are negative. <Isai Gould - Last Filed: 02/13/24 20:30> ROS Statement: Those systems with pertinent positive or pertinent negative responses have been documented in the HPI. Past Medical History Past Medical History: Coronary Artery Disease (CAD), Chest Pain / Angina, COPD, Diabetes Mellitus, GERD/Reflux, GI Bleed, Hyperlipidemia, Hypertension, Myocardial Infarction (PA), Skin Disorder Additional Past Medical History / Comment(s): Hx of rectal bleeding, rectal fissure; gout, bronchitis, uses O2 @ 2L [place]. +Covid 08/2020. Hx cysts on groin area. Last Myocardial Infarction Date:: approx 2005 History of Any Multi-Drug Resistant Organisms: None Reported Past Surgical History: Heart Catheterization With Stent Additional Past Surgical History / Comment(s): total 3 cardiac stents, surgery for cyst in rectal area, siddharth cataracts, uro lift, cysts removed from testicles, buttocks, and back, colonoscopy Past Anesthesia/Blood Transfusion Reactions: No Reported Reaction Date of Last Stent Placement:: 2005 Past Psychological History: No Psychological Hx Reported Smoking Status: Former smoker Past Alcohol Use History: Occasional Past Drug Use History: None Reported - Past Family History Father Family Medical History: Cancer Additional Family Medical History / Comment(s): lung cancer Mother Family Medical History: No Reported History Additional Family Medical History / Comment(s): Mother was healthy and lived to be in her 90s. <Herman Terrazas - Last Filed: 01/25/24 21:37> General Exam Limitations: no limitations <Herman Terrazas - Last Filed: 01/25/24 21:37> General appearance: alert, in no apparent distress Head exam: Present: atraumatic, normocephalic, normal inspection Eye exam: Present: normal appearance, PERRL, EOMI. Absent: scleral icterus, conjunctival injection, periorbital swelling ENT exam: Present: normal exam, mucous membranes moist Neck exam: Present: normal inspection. Absent: tenderness, meningismus, lymphadenopathy Respiratory exam: Present: normal lung sounds bilaterally. Absent: respiratory distress, wheezes, rales, rhonchi, stridor Cardiovascular Exam: Present: regular rate, normal rhythm, normal heart sounds. Absent: systolic murmur, diastolic murmur, rubs, gallop, clicks GI/Abdominal exam: Present: soft, normal bowel sounds. Absent: distended, t enderness, guarding, rebound, rigid Extremities exam: Present: normal inspection, full ROM, normal capillary refill. Absent: tenderness, pedal edema, joint swelling, calf tenderness Back exam: Present: normal inspection Neurological exam: Present: alert, oriented X3, CN II-XII intact Psychiatric exam: Present: normal affect, normal mood Skin exam: Present: warm, dry, intact, normal color. Absent: rash <Isai Gould - Last Filed: 02/13/24 20:30> - General Exam Comments Initial Comments: Visual Physical Exam Vital signs reviewed General: Well-appearing, nontoxic, no acute distress. Head: Normocephalic, atraumatic Eyes: PERRLA, EOMI ENT: Airway patent Chest: Nonlabored breathing Skin: No visual rash, normal skin tone Neuro: Alert and oriented 3 Musculoskeletal: No gross abnormalities (Herman Terrazas) Course <Isai Gould - Last Filed: 02/13/24 20:30> Vital Signs 01/25/24 01/26/24 20:11 04:23 Temperature 97.6 F Pulse Rate 69 76 Respiratory 24 16 Rate Blood Pressure 98/57 104/65 O2 Sat by Pulse 98 96 Oximetry - Reevaluation(s) Reevaluation #1: 01/26/24 04:42 Medical records reviewed (Isai Gould) Reevaluation #2: 01/26/24 04:42 Patient's pain is improved (Isai Gould) Reevaluation #3: 01/26/24 04:42 Patient informed of results and questions answered (Isai Gould) Reevaluation #4: Was pt. sent in by a medical professional or institution (ADWOA Garza, FARM SUPERVISOR, urgent care, hospital, or care home...) When possible be specific @ -no Did you speak to anyone other than the patient for history (EMS, parent, family, police, friend...)? What history was obtained from this source @ -no Did you review nursing and triage notes (agree or disagree)? Why? @ -agree Are old charts reviewed (outside hosp., previous admission, EMS record, old EKG, old radiological studies, urgent care reports/EKG's, care home records)? Report findings @ -yes Differential Diagnosis (chest pain, altered mental status, abdominal pain women, abdominal pain men, vaginal bleeding, weakness, fever, dyspnea, syncope, headache, dizziness, GI bleed, back pain, seizure, CVA, palpatations, mental health, musculoskeletal)? @ -prior EKG interpreted by me (3pts min.). @ -no X-rays interpreted by me (1pt min.). @ -no CT interpreted by me (1pt min.). @ -no U/S interpreted by me (1pt. min.). @ -no What testing was considered but not performed or refused? (CT, X-rays, U/S, labs)? Why? @ -none What meds were considered but not given or refused? Why? @ -none Did you discuss the management of the patient with other professionals (professionals i.e. ADWOA Garza, FARM SUPERVISOR, lab, RT, psych nurse, social media marketing manager, grinding mill operator, teacher, youth liaison officer, showcase trimmer)? Give summary @ -no Was smoking cessation discussed for >3mins.? @ -no Was critical care preformed (if so, how long)? @ -no Were there social determinants of health that impacted care today? How? (Homelessness, low income, unemployed, alcoholism, drug addiction, transportation, low edu. Level, literacy, decrease access to med. care, intermediate, rehab)? @ -none Was there de-escalation of care discussed even if they declined (Discuss DNR or withdrawal of care, Hospice)? DNR status @ -no What co-morbidities impacted this encounter? (DM, HTN, Smoking, COPD, CAD, Cancer, CVA, ARF, Chemo, Hep., AIDS, mental health diagnosis, sleep apnea, morbid obesity)? @ -none Was patient admitted / discharged? Hospital course, mention meds given and route, prescriptions, significant lab abnormalities, going to OR and other pertinent info. @ - 78 male to ER for evaluation of fall fall with left buttocks hematoma and contusion. Patient is in no acute distress no abscess patient can be discharged home Discharge Undiagnosed new problem with uncertain prognosis? @ -no Drug Therapy requiring intensive monitoring for toxicity (Heparin, Nitro, Insulin, Cardizem)? @ -no Were any procedures done? @ -no Diagnosis/symptom? @ -Fall, buttocks hematoma Acute, or Chronic, or Acute on Chronic? @ -Acute Uncomplicated (without systemic symptoms) or Complicated (systemic symptoms)? @ -Complicated Side effects of treatment? @ -no Exacerbation, Progression, or Severe Exacerbation? @ -exacerbation Poses a threat to life or bodily function? How? (Chest pain, USA, PA, pneumonia, PE, COPD, DKA, ARF, appy, cholecystitis, CVA, Diverticulitis, Homicidal, Suicidal, threat to staff... and all critical care pts) @ -no (Isai Gould) Medical Decision Making <Herman Terrazas - Last Filed: 01/25/24 21:37> <Isai Gould - Last Filed: 02/13/24 20:30> - Medical Decision Making I performed the quick note portion of this visit, electronically signed Herman Terrazas PA-C (Herman Terrazas) 78 male to ER for evaluation of fall fall with left buttocks hematoma and contusion. Patient is in no acute distress no abscess patient can be discharged home (Isai Gould) Disposition <Herman Terrazas - Last Filed: 01/25/24 21:37> Is patient prescribed a controlled substance at d/c from ED?: No Time of Disposition: 04:00 <Isai Gould - Last Filed: 02/13/24 20:30> Clinical Impression: Hematoma, Fall, Buttock pain Disposition: HOME SELF-CARE Condition: Good Instructions (If sedation given, give patient instructions): Hematoma (ED) Referrals: Deanna Kate MD [Primary Care Provider] - 1-2 days
[2024-01-26] MEDS: traMADol 50 MG TAB PO STA (04:16)
[2024-01-26] MEDS: IBUPROFEN 600 MG STARTER PACK 4 TAB BTL PO STA (04:17)
[2024-01-26] MEDS: traMADol 50 MG STARTER PACK 3 TAB BTL PO STA (04:18)
[2024-01-26 04:32] VITALS: BP 104/65; PULSE 76; RESP 16
== END 2024-01-26 04:58 | disposition home or self-care (01) ==
LOC: EC 19:52
CPT/HCPCS: 99283

== ENCOUNTER → 2024-02-22 | Outpatient (CLI) | payer MEDICARE ==
--- NOTE | 2024-02-22 12:30 | XR ---
EXAMINATION TYPE: XR chest 2V DATE OF EXAM: 02/22/2024 11:44 AM CLINICAL INDICATION: Male, 78 years old with history of R06.02 SHORTNESS OF BREATH; [facility] COMPARISON: Chest radiographs from 11/06/2023 TECHNIQUE: XR chest 2V Frontal view of the chest. FINDINGS: Lungs/Pleura: Basilar streaky atelectasis. There is flattening of the diaphragm with increased lucenc y of the lungs. No evidence of pneumothorax, pleural effusion or focal consolidation. Pulmonary vascularity: Unremarkable. Heart/mediastinum: Cardiomediastinal silhouette is unremarkable. Musculoskeletal: No acute osseous pathology. IMPRESSION: 1. No acute cardiopulmonary disease process. 2. COPD changes. [facility], , 02/22/2024 12:28 PM
[2024-02-22 15:37] LABS: HCT 38.8 % (39.6-50.0); HGB 12.4 g/dL (13.0-17.0); MCH 30.6 pg (27.0-32.0); MCV 95.8 FL (80.0-97.0); Mean Platelet Volume 9.7 FL (9.5-12.2); NRBC Per 100 WBC 0 X 10*3/uL (0.00-0.01); Platelet Count 201 X 10*3/uL (140-440); RBC 4.05 X 10*6/uL (4.40-5.60); RDW 13.8 % (11.5-14.5); WBC 6.51 X 10*3/uL (4.50-10.00)
[2024-02-22 15:47] LABS: INR 1.12 sec (0.93-1.11)
[2024-02-22 16:52] LABS: ALT 10 U/L (10-49); AST 18 U/L (14-35); Albumin 3.9 g/dL (3.8-4.9); Albumin/Globulin Ratio 1.95 Ratio (1.60-3.17); Alkaline Phosphatase 151 U/L (41-126); BUN/Creat Ratio 13.08 Ratio (12.00-20.00); Calcium 9.2 mg/dL (8.7-10.3); Carbon Dioxide 22.8 mmol/L (21.6-31.8); Chloride 105 mmol/L (96-109); Glucose 132 mg/dL (70-110); Potassium 4.5 mmol/L (3.5-5.5); Sodium 141 mmol/L (135-145); Total Bilirubin 0.8 mg/dL (0.3-1.2); Total Protein 5.9 g/dL (6.2-8.2)
== END | disposition home or self-care (01) ==
LOC: LABPAT 10:49
PROVIDERS: ATTEND Orthopaedic Surgery
DX: Z01.818 Encounter for other preprocedural examination (principal); S32.009A Unspecified fracture of unspecified lumbar vertebra, initial encounter for closed fracture; I44.39 Other atrioventricular block; J44.9 Chronic obstructive pulmonary disease, unspecified; Z22.322 Carrier or suspected carrier of Methicillin resistant Staphylococcus aureus; I10 Essential (primary) hypertension; R06.02 Shortness of breath; R58 Hemorrhage, not elsewhere classified; R94.31 Abnormal electrocardiogram [ECG] [EKG]; R00.1 Bradycardia, unspecified; Z79.899 Other long term (current) drug therapy; X58.XXXA Exposure to other specified factors, initial encounter
CPT/HCPCS: 71046; 80053; 85027; 85610; 86850; 86900; 86901; 87070; 93005

== ENCOUNTER 2024-03-04 05:42 | Day surgery (SDC) | payer MEDICARE ==
[2024-02-29 12:03] VITALS: BMI 28.5
--- NOTE | 2024-03-03 21:52 | P.HPOR ---
"History of Present Illness H&P Date: 02/28/24 .D:Date: 02/28/24 : 08:10am .T:Title: FOLLWO UP L[facility] [address] [place], [place] [address], [place] [address]| DO EUNICE ESPINOZA, MSN, MENTAL HEALTH COUNSELOR-C Patient Name: Salvatore Aguilar Age/Sex: 78, MALE : 45 DATE OF SERVICE: Feb 20, 2024 3:30?PM VISIT TYPE: FOLLOW UP [facility] CHIEF COMPLAINT: * Low back pain * Low back fracture * VAS: 7 HISTORY: * Salvatore Aguilar presents today on follow up for his low back pain. He has seen Eunice in the past for his low back fractures and pain. He was in the hospital recently where he obtained a CT and MRI of his lower back which showed acute fractures of L2 and L5. He continues to have significant pain in his back despite conservative measures including bracing, Rx and OTC medications and PT. These have seemed to make worse and he continues to have debility due to this. He would like to have something he states that will alleviate and help the pain more permanently. Denies any new trauma to the area. Original fall was at the end of December and the beginning of january. Patient denies any f/c/sob/cp, perineal numbness or tingling, bowel or bladder incontinence/retention. Patient is ambulatory The patients' past social, medical, family, surgical history, as well as review of systems, have been reviewed. Please refer to the Neurosurgery History and Physical form that has been scanned into our electronic medical record system. 16 points review of systems completed and as stated in HPI, all other systems reviewed are negative. PREVIOUS TREATMENTS: PAST IMAGING: -YES XR, MRI, CT scan Lumbar TRAUMA RELATED: -YES WORK RELATED: -NO PT IN LAST 6 MONTHS: -YES Made worse PHYSICIAN DIRECTED HOME EXERCISE PROGRAM: -YES ACTIVITY MODIFICATION: -YES MEDICATIONS: -YES ALTERNATIVE INTERVENTIONS (CHIROPRACTIC, ACUPUNCTURE, MASSAGE, RICE): -YES BRACING: -YES LSO, some relief, temporary INJECTIONS (PRASANTH, TF, RFA): -YES -OTHER: NA MEDICAL HISTORY: Past Medical History: REVIEWED STATED IN CHART Past Surgical History: REVIEWED STATED IN CHART Social History: REVIEWED STATED IN CHART * Smoking/ Tobacco use: Never Smoker * ETOH use: None * Substance use: None Family History: REVIEWED STATED IN CHART Current Medications: REVIEWED STATED IN CHART * See nursing list. Reviewed with pt. PHYSICAL EXAM: General: AOX3, NAD, Well hydrate, Well nourished HEENT: No lumps or masses Extremities: No color changes, no pooling INTEGUMENT: Appearance: Normal color and turgor Surgical Incisions: NA Hairy Patches: ABSENT Dorsal Skin Dimples: Normal [employer] spots: ABSENT PALPATION: (TTP) Midline: YES L2 and L5 Paracervical: NO Parathoracic: NO Paralumbar: YES L2 and L5 SIJ TESTING: Not Tested POSTURAL BALANCE: -Coronal: BALANCED -Sagittal: BALANCED -Shoulder height: LEVEL -Pelvic Girdle: LEVEL ROM AND APPEARANCE: Neck: UNRESTRICTED Lumbar: RESTRICTED WITH PAIN Shoulders: Symmetrical Hips: Symmetrical Knees: Symmetrical Hands: Symmetrical Feet: Symmetrical VASCULAR STATUS: RUE- 2 LUE-2 RLE-2 LLE-2 Edema: NONE NEUROLOGICAL EXAMINATION: Mental Status: Awake, alert, oriented fully with normal attention, concentration and memory. Fluent appropriate speech. CRANIAL NERVES: I: Olfactory not tested. II: Visual acuity normal, no visual field deficit noted with confrontation. III,IV: Normal pupillary reflexes & intact extraocular movements without nystagmus. V,: Intact symmetrical facial sensation. VII: Intact symmetrical facial motor movementVIII: Hearing intact. IX,X: Intact gag, swallow, & normal voice. XI: Sternocleidomastoid, trapezius function intact. XII: Tongue midline with normal movements. TENSIONING: L'HERMITTE'S SIGN: NEGATIVE SPURLING'S SIGN: NEGATIVE CUBITAL COMPRESSION: NEGATIVE TINEL'S AT WRIST: NEGATIVE SLR:NEGATIVEBILATERAL CROSSED SLR: NEGATIVE MOTOR EXAM (0-5/5, NT) Muscle appearance: Symmetrical, without signs of atrophy or dystrophy UPPER EXTREMITY RIGHT LEFT SHOULDER ABDUCTION 5 5 BICEP 5 5 TRICEP 5 5 WRIST EXTENSION 5 5 INTRINSICS 5 5 MARKETING EDUCATION TEACHER 5 5 LOWER EXTREMITY HIP FLEXION 4 4 KNEE FLEXION 4 4 KNEE EXTENSION 4 4 DORSIFLEXION 4 4 PLANTAR FLEXION 4 3 EHL 4 4 FHL 4 4 REFLEXES (0-4/2, NT): RIGHT LEFT BICEP 2 2 TRICEP 2 2 BRACHIORADIALIS 2 2 PATELLAR 2 2 ACHILLES 1 2 PATHOLOGICAL REFLEXES: RIGHT LEFT HOFFMANS ABSENT ABSENT CLONUS ABSENT ABSENT BABINSKI ABSENT ABSENT Rectal Tone: INTACT SENSATION (0-4, NT): Intact to light touch and pain sensation to C5-T1 as well as L2-S2 except that noted below Hyperesthesia: ABSENT Dermatomal deficit: NO GAIT AND FUNCTIONAL EVALUATION: -Ambulatory aids YES, Cane -Rombergs test NEGATIVE -Hand and finger dexterity intact bilaterally? YES -Dysdiadochokinesia examination negative bilaterally? YES -Toe heel walk / heel-toe walk intact while maintaining satisfactory balance? NO -Squatting/straightening w/o assistance to a min of 60 degree knee flexion? NO -Single leg stance: NOT ABLE -Trendelenburg sign NT IMAGING: * XR, MRI and CT of the lumbar spine done at [facility] during his inpatient stay demonstrate L2 and L5 acute VCF that are 60% and 40% compressed respectively. There is edema within the bodies of these fractures indicating acute fracture. There is local kyphosis at L2 due to the fracture collapse being severe. There is edema in the disc space of L1-2 as well. No other fractures noted at this time. There is no severe canal compromise or stenosis related to the fractures. There is mild central stenosis due to the collapse. IMPRESSION: It was my pleasure to have seen and examined Salvatore Aguilar. I reviewed the patient's clinical syndrome, physical findings, and imaging studies during the appointment today. It is my impression that the patient has a diagnosis of. 1. L2 VCF 60% wedge compression, Acute 2. L5 VCF 40% wedge compression , Acute 3. Low back pain PLAN: DISCUSSION: * I have discussed with the patient their clinical signs and symptoms as well as imaging today. * I have discussed risks and benefits of conservative as well as surgical treatment with Salvatore Pacheco today and he has elected to proceed with surgical treatment as outlined below. SURGICAL RECOMMENDATION: * L2 and L5 kyphoplasty with biopsy THERAPIES: * Continue with physical therapy at home * Cont with home exercises and home PT exercises as able * Cont with Heat/Ice as warranted * Cont with supplementation Vit D, Vit C, Ca2+, High protein diet * OK for massage or other alternative treatment modalities as possible. If it exacerbates your sx do not continue ACTIVITY * Advance as tolerated * 5-10 lbs LIFTING BENDING TWISTING PUSHING PULLING LIMIT * Recommend walking up to 30 min 2x daily on a flat, easy surface with good support. MEDICATIONS * Continue previous medications * * Take as directed * Cont home medications as directed by your PCP. Check with your PCP for any medication interactions or issues if needed. IMAGING * No new imaging at this time INJECTIONS * NA Spine Surgery Clinical and Risk Review Salvatore Aguilar is a demographic presentation for evaluation of cheif complaint. It was my pleasure to have seen and examined [Salvatore Aguilar In our visit today we have had a chance to go over subjective complaints, physical examination findings and treatments including the natural course history without intervention and various interventional options. The patients imaging demonstrates the following findings: findings 1 On a physical exam, Salvatore Aguilar demonstrates the following findings: findings 2 I have explained to the patient that as their condition progresses it will cause further neurological deficits and eventual paralysis. Based on the patients imaging, physical exam, and the rapid progression and disabling nature of their symptoms, at this time I recommend surgery in the form of a: L2 and L5 KYPHOPLASTY WITH BIOPSY I discussed the risk and benefits of this procedure at length with Salvatore Aguilar. The patient agreed to consider pursuing the procedure above mentioned. Prior to surgery, they should follow up with her PCP (Cardio, ID, IM etc) for clearance. Questions were invited and answered, and the patient wishes to proceed as outlined below. Currently, I am recommendin. L2 and L5 KYPHOPLASTY WITH BIOPSY 2. Obtain appropriate presurgical workup and clearances as discussed with the patient. 3. Review of surgical risks and benefits as well as an educational packet on the proposed surgical procedure. Risks: All surgical procedures come with inherent risks, including those related to positioning, anesthesia, intraoperative findings, and postoperative complications. It is important to understand that surgery does not come with any guarantee of a successful outcome as complications and adverse events are always possible. The patient was given a handout in the office today discussing the surgical procedure and risks associated with the intervention, both of which were discussed with the patient. These risks include but are not limited to the following: Experiencing same, different or even worse symptoms in back, neck, arms, or legs compared to before surgery. Requiring further surgery or other forms of treatment presently or at some time in the future at same or other levels of the intended spine surgery. On an extreme but fortunately relatively rare basis severe complications such as blindness, stroke, heart attack, temporary and/or permanent nerve injury, paralysis, coma, or may occur, sometimes without known explanation. Surgical complications may include but are not limited to risk of infection, fluid accumulation in the surgical dissection site, including a seroma or hematoma, that requires additional surgery, wound drainage, bleeding, new numbness or weakness, vision changes/loss, spinal fluid leakage, non-healing and/or infected incision, headaches, difficulty or inability to swallow, hoarseness, hemopneumothorax, pneumothorax, impotence, retrograde ejaculation, vaginal dryness; injury to nerves, spinal cord, blood vessels, lymphatics or other vital organs (i.e., bowel injury, injury to the great vessels); heterotopic bone formation; complications related to the hardware such as screws, rods, cages including misplaced hardware, device failure, instrumentation at the wrong spine level, hardware fracture/breakage, or hardware loosening; vertebral failure of the spinal column above or below the newly placed hardware; retained surgical instrumentations or devices and the need for further surgery. Medical risks of the planned spine surgery include but are not limited to generalized Infections to the whole body or local areas outside of the surgical site (sepsis), heart attack, bleeding, anaphylaxis, meningitis, seizure, epilepsy, hearing loss, burn haq, laceration of the head or other areas of the body, bruising, hypersensitivity of the skin, bladder over distension; allergic reaction; shoulder injury related to positioning; fat, blood and air clots to other areas of the body like heart, lungs, brain; failure of internal organs such as lungs, kidneys, liver and excessive bleeding. If blood transfusions are necessary, note that transfusions may cause intolerance reactions such as anaphylaxis or other complex reactions. Despite best efforts, the results of spine surgery might not heal in terms of bone, soft tissues such as skin, fascia, ligaments, and joints. Additionally, in order to achieve best possible results, spine surgery may be carried out beyond the initially planned levels and involve decompression, fusion including insertion of hardware at levels other than the original intended area of surgical interest change some portions of the procedure in order to ensure the best possible outcomes. With spine surgery and spinal fusion, there are different off label uses of instrumentation (devices, implants and hardware) as well as biological substances (bone morphogenic proteins, demineralized bone matrix) as well as using extra bone from allograft sources (i.e. cadaver bone) or autograft (iliac crest bone, ribs, or the spine itself). The patient has been given information about these practices and their inherent risks and benefits. The patient has had a chance to review all the listed information, has been given print outs detailing this information, and has had all his/her questions answered to their satisfaction. It was my pleasure to have seen and examined Salvatore Aguilar In our visit today we have had a chance to go over my understanding of our patient's current condition, the natural course history without intervention and various interventional options. Questions were invited and answered, and the patient wishes to proceed as outlined above. I have seen and examined the patient for 25 minutes and we have spent more than 50% of the time in repeat and detailed counseling about the patient's condition, its natural course history without and as much as can be predicted with surgery and re-review of various surgical treatment options. In conclusion, Salvatore Aguilar and [his/her spouse/partner] requested we proceed with the above suggested surgery and are willing to accept risks and limitations of the suggested surgery as to the nature of the disease process and our best attempts at treatment for the condition. FOLLOW UP: POSTOP PLAN AT NEXT VISIT: RECHECK PATIENT EDUCATION: Medications Reviewed: YES In our visit today the patient and I have had a chance to go over my u nderstanding of their current condition, the natural course history without intervention and various interventional options. Questions were invited and answered, and the patient wishes to proceed as outlined above. I will be sure to keep you updated after the patient returns here for further follow-up. Thank you again for your referral. Please do not hesitate to contact me if you have any further questions. Signed and authenticated by: Feb 20, 2024 5:18?PM EDT DO Bryanna Espinozaradha Santana [facility] [address] [place] [address] This document is confidential, intended only for the named recipient(s) and may contain information that is privileged or exempt from disclosure under applicable law. If you are not the intended recipient(s), you are notified that the dissemination, distribution or copying of this information is strictly prohibited. If you received this message in error, please notify the sender then delete this message. # SIGNED BY Al Sauer (GOO)02/28/2024 08:10AM Past Medical History Past Medical History: Coronary Artery Disease (CAD), Chest Pain / Angina, COPD, Diabetes Mellitus, GERD/Reflux, GI Bleed, Hyperlipidemia, Hypertension, Myocardial Infarction (NH), Pneumonia, Skin Disorder Additional Past Medical History / Comment(s): Frequent constipation. Hx of rectal bleeding, rectal fissure. Hx gout. Hx bronchitis, uses O2 @ 2L [place] 11/12. Hx Covid 08/2020. Hx Pneumonia 2022 resulting in weakness and a loss of significant muscle mass. Chronic back pain last 2 months. Prone to cysts, none currently. Saw kidney Dr, unsure why. Last Myocardial Infarction Date:: approx 2005 History of Any Multi-Drug Resistant Organisms: None Reported Past Surgical History: Heart Catheterization With Stent Additional Past Surgical History / Comment(s): Total of 3 cardiac stents, bilateral cataract surgery, uro lift, multiple cysts removed from testicles, buttocks, and back, rectal area, colonoscopy. Past Anesthesia/Blood Transfusion Reactions: No Reported Reaction Date of Last Stent Placement:: 2005 Smoking Status: Former smoker - Past Family History Father Family Medical History: Cancer Additional Family Medical History / Comment(s): Lung cancer. Mother Family Medical History: No Reported History Additional Family Medical History / Comment(s): Mother was healthy and lived to be in her 90s. Medications and Allergies Home Medications Medication Instructions Recorded Confirmed Type allopurinoL [Zyloprim] 100 mg PO DAILY 03/02/16 02/29/24 History Tamsulosin HCl [Flomax] 0.4 mg PO HS 12/29/17 02/29/24 History Pantoprazole [Protonix] 40 mg PO DAILY 03/03/19 02/29/24 History Montelukast Sodium [Singulair] 10 mg PO HS 08/16/20 02/29/24 History Aspirin EC [Ecotrin Low Dose] 81 mg PO DAILY 10/10/20 02/29/24 History Ascorbic Acid [Vitamin C] 500 mg PO DAILY 10/19/21 02/29/24 History Cholecalciferol [Vitamin D3 (25 25 mcg PO DAILY 10/19/21 02/29/24 History Mcg = 1000 Iu)] Albuterol Inhaler [Ventolin Hfa 2 puff INHALATION Q6H PRN 03/19/22 02/29/24 History Inhaler] Fluticasone/Umeclidin/Vilanter 1 puff INHALATION QAM 05/23/23 02/29/24 History [Trelegy Ellipta 200-62.5-25] Potassium Chloride [K-Tab ER] 20 meq PO DAILY 30 Days #30 tab 05/25/23 02/29/24 Rx Apixaban [Eliquis] 5 mg PO BID tab 06/14/23 02/29/24 Rx Melatonin 5 mg PO HS PRN tab 06/14/23 02/29/24 Rx polyethylene glycoL 3350 [Miralax] 17 gm PO DAILY PRN packet 06/14/23 02/29/24 Rx Levothyroxine Sodium [Synthroid] 25 mcg PO DAILY 11/06/23 02/29/24 History Bumetanide [Bumex] 1 mg PO BID #60 tablet 11/08/23 02/29/24 Rx Acetaminophen Tab [Tylenol Tab] 500 mg PO Q6H PRN 02/29/24 02/29/24 History Calcium Carbonate/Vitamin D3 3 tab PO DAILY 02/29/24 02/29/24 History [Calcium 500 mg Chewable Tablet] Ipratropium-Albuterol Nebulize 3 ml INHALATION QID PRN 02/29/24 02/29/24 History [Duoneb 0.5 mg-3 mg/3 ml Soln] Sennosides/Docusate Sodium 1 each PO DAILY PRN 02/29/24 02/29/24 History [Senna-S 8.6-50 mg Tablet] Allergies Allergy/AdvReac Type Severity Reaction Status Date / Time No Known Allergies Allergy Verified 02/29/24 10:55 Physical Examination Osteopathic Statement: *. No significant issues noted on an osteopathic structural exam other than those noted in the History and Physical/Consult."
[~2024-03-04 05:42] MED LIST changes: -LACTATED RINGERS 1,000 ML IV SCH; +TRANEXAMIC 1,000 MG/100ML-NACL 1,000 MG in SALINE 1 100ML.BAG IVPB PRN
[2024-03-04] MEDS: IV FLUID CONTINUATION 1,000 ML IV ONE (06:21)
[2024-03-04] MEDS: ACETAMINOPHEN TAB 500 MG TAB PO PRN (06:23)
[2024-03-04] MEDS: ONDANSETRON 4 MG/2 ML VIAL IVP PRN (06:23)
[2024-03-04] MEDS: GABAPENTIN 300 MG CAP PO PRN (06:24)
[2024-03-04 07:09] LABS: Glucose,Whole Blood 121 mg/dL (70-110)
[2024-03-04] MEDS ORDERED: MIDAZOLAM 2 MG/2 ML VIAL ONE (07:25)
[2024-03-04] MEDS ORDERED: SUCCINYLCHOLINE CHLORIDE 200 MG/10 ML VIAL IV ONE (07:25)
[2024-03-04] MEDS ORDERED: fentaNYL (PF) 50 MCG/ML 2 ML AMP ONE (07:25)
[2024-03-04] MEDS ORDERED: PROPOFOL 10 MG/ML 20 ML VIAL IV ONE (07:25)
[2024-03-04] MEDS ORDERED: ePHEDrine 50 MG/ML 1 ML VIAL ONE (07:25)
[2024-03-04] MEDS ORDERED: GLYCOPYRROLATE 0.2 MG/ML 2 ML VIAL ONE (07:25)
[2024-03-04] MEDS ORDERED: WATER FOR INJECTION, STERILE 10 ML VIAL IV ONE (07:25)
[2024-03-04] MEDS ORDERED: TRANEXAMIC 1,000 MG/100ML-NACL PREMIX BAG ONE (07:25)
[2024-03-04] MEDS ORDERED: LIDOCAINE 1% INJ 10MG/ML (20 ML MDV) ONE (07:25)
[2024-03-04] MEDS ORDERED: NEOSTIGMINE 1 MG/ML 10 ML VIAL ONE (07:25)
[2024-03-04] MEDS ORDERED: ROCURONIUM 10 MG/ML (5 ML VIAL) IV ONE (07:25)
[2024-03-04] MEDS: IOPAMIDOL M200 10 ML VIAL MISCELLANE ONE ×2 (08:01)
[2024-03-04] MEDS: LIDOCAINE 2%-EPI 1:100,000 20 ML VIAL SQ ONE (08:03)
[2024-03-04] MEDS: BUPIVACAINE (PF) 0.5% 30 ML VIAL SQ ONE (08:03)
--- NOTE | 2024-03-04 08:47 | P.OP ---
Date of Procedure: 03/04/24 Preoperative Diagnosis: 1. L2 AND L5 VCF 75% AND 55% COMPRESSION, ANTERIOR WEDGE 2. LOW BACK PAIN 3. S/P FFS Postoperative Diagnosis: 1. L2 AND L5 VCF 75% AND 55% COMPRESSION, ANTERIOR WEDGE 2. L4 VCF, NEW ON XRAY, 55% COMPRESSION 3. LOW BACK PAIN 4. S/P FFS Procedure(s) Performed: 1. L2 BIOPSY WITH KYPHOPLASTY 2. L4 BIOPSY WITH KYPHOPLASTY 3. L5 BIOPSY WITH KYPHOPLASTY Implants: [employer] Anesthesia: GETA Surgeon: Al Sauer Estimated Blood Loss (ml): 10 IV fluids (ml): 500 Urine output (ml): 0 Pathology: other (L2, L4, L5 VERTEBRAL BODIES) Condition: stable Disposition: PACU Indications for Procedure: CHIEF COMPLAINT: * Low back pain * Low back fracture * VAS: 7 HISTORY: * Salvatore Aguilar presents today on follow up for his low back pain. He has seen Eunice in the past for his low back fractures and pain. He was in the hospital recently where he obtained a CT and MRI of his lower back which showed acute fractures of L2 and L5. He continues to have significant pain in his back despite conservative measures including bracing, Rx and OTC medications and PT. These have seemed to make worse and he continues to have debility due to this. He would like to have something he states that will alleviate and help the pain more permanently. Denies any new trauma to the area. Original fall was at the end of December and the beginning of january. Patient denies any f/c/sob/cp, perineal numbness or tingling, bowel or bladder incontinence/retention. Patient is ambulatory The patients' past social, medical, family, surgical history, as well as review of systems, have been reviewed. Please refer to the Neurosurgery History and Physical form that has been scanned into our electronic medical record system. 16 points review of systems completed and as stated in HPI, all other systems reviewed are negative. PREVIOUS TREATMENTS: PAST IMAGING: -YES XR, MRI, CT scan Lumbar TRAUMA RELATED: -YES WORK RELATED: -NO PT IN LAST 6 MONTHS: -YES Made worse PHYSICIAN DIRECTED HOME EXERCISE PROGRAM: -YES ACTIVITY MODIFICATION: -YES MEDICATIONS: -YES ALTERNATIVE INTERVENTIONS (CHIROPRACTIC, ACUPUNCTURE, MASSAGE, RICE): -YES BRACING: -YES LSO, some relief, temporary INJECTIONS (PRASANTH, TF, RFA): -YES -OTHER: NA MEDICAL HISTORY: Past Medical History: REVIEWED STATED IN CHART Past Surgical History: REVIEWED STATED IN CHART Social History: REVIEWED STATED IN CHART * Smoking/ Tobacco use: Never Smoker * ETOH use: None * Substance use: None Family History: REVIEWED STATED IN CHART Current Medications: REVIEWED STATED IN CHART * See nursing list. Reviewed with pt. PHYSICAL EXAM: General: AOX3, NAD, Well hydrate, Well nourished HEENT: No lumps or masses Extremities: No color changes, no pooling INTEGUMENT: Appearance: Normal color and turgor Surgical Incisions: NA Hairy Patches: ABSENT Dorsal Skin Dimples: Normal [employer] spots: ABSENT PALPATION: (TTP) Midline: YES L2 and L5 Paracervical: NO Parathoracic: NO Paralumbar: YES L2 and L5 SIJ TESTING: Not Tested POSTURAL BALANCE: -Coronal: BALANCED -Sagittal: BALANCED -Shoulder height: LEVEL -Pelvic Girdle: LEVEL ROM AND APPEARANCE: Neck: UNRESTRICTED Lumbar: RESTRICTED WITH PAIN Shoulders: Symmetrical Hips: Symmetrical Knees: Symmetrical Hands: Symmetrical Feet: Symmetrical VASCULAR STATUS: RUE- 2 LUE-2 RLE-2 LLE-2 Edema: NONE NEUROLOGICAL EXAMINATION: Mental Status: Awake, alert, oriented fully with normal attention, concentration and memory. Fluent appropriate speech. CRANIAL NERVES: I: Olfactory not tested. II: Visual acuity normal, no visual field deficit noted with confrontation. III,IV: Normal pupillary reflexes & intact extraocular movements without nystagmus. V,: Intact symmetrical facial sensation. VII: Intact symmetrical facial motor movementVIII: Hearing intact. IX,X: Intact gag, swallow, & normal voice. XI: Sternocleidomastoid, trapezius function intact. XII: Tongue midline with normal movements. TENSIONING: L'HERMITTE'S SIGN: NEGATIVE SPURLING'S SIGN: NEGATIVE CUBITAL COMPRESSION: NEGATIVE TINEL'S AT WRIST: NEGATIVE SLR:NEGATIVEBILATERAL CROSSED SLR: NEGATIVE MOTOR EXAM (0-5/5, NT) Muscle appearance: Symmetrical, without signs of atrophy or dystrophy UPPER EXTREMITY RIGHT LEFT SHOULDER ABDUCTION 5 5 BICEP 5 5 TRICEP 5 5 WRIST EXTENSION 5 5 INTRINSICS 5 5 SFDC ARCHITECT 5 5 LOWER EXTREMITY HIP FLEXION 4 4 KNEE FLEXION 4 4 KNEE EXTENSION 4 4 DORSIFLEXION 4 4 PLANTAR FLEXION 4 3 EHL 4 4 FHL 4 4 REFLEXES (0-4/2, NT): RIGHT LEFT BICEP 2 2 TRICEP 2 2 BRACHIORADIALIS 2 2 PATELLAR 2 2 ACHILLES 1 2 PATHOLOGICAL REFLEXES: RIGHT LEFT HOFFMANS ABSENT ABSENT CLONUS ABSENT ABSENT BABINSKI ABSENT ABSENT Rectal Tone: INTACT SENSATION (0-4, NT): Intact to light touch and pain sensation to C5-T1 as well as L2-S2 except that noted below Hyperesthesia: ABSENT Dermatomal deficit: NO GAIT AND FUNCTIONAL EVALUATION: -Ambulatory aids YES, Cane -Rombergs test NEGATIVE -Hand and finger dexterity intact bilaterally? YES -Dysdiadochokinesia examination negative bilaterally? YES -Toe heel walk / heel-toe walk intact while maintaining satisfactory balance? NO -Squatting/straightening w/o assistance to a min of 60 degree knee flexion? NO -Single leg stance: NOT ABLE -Trendelenburg sign NT IMAGING: * XR, MRI and CT of the lumbar spine done at [facility] during his inpatient stay demonstrate L2 and L5 acute VCF that are 60% and 40% compressed respectively. There is edema within the bodies of these fractures indicating acute fracture. There is local kyphosis at L2 due to the fracture collapse being severe. There is edema in the disc space of L1-2 as well. No other fractures noted at this time. There is no severe canal compromise or stenosis related to the fractures. There is mild central stenosis due to the collapse. IMPRESSION: It was my pleasure to have seen and examined Salvatore Aguilar. I reviewed the patient's clinical syndrome, physical findings, and imaging studies during the appointment today. It is my impression that the patient has a diagnosis of. 1. L2 VCF 60% wedge compression, Acute 2. L5 VCF 40% wedge compression , Acute 3. NEW ACUTE L4 WEDGE COMPRESSION FRACTURE 55% 4. Low back pain PLAN: DISCUSSION: * I have discussed with the patient their clinical signs and symptoms as well as imaging today. * I have discussed risks and benefits of conservative as well as surgical treatment with Salvatore Pacheco today and he has elected to proceed with surgical treatment as outlined below. SURGICAL RECOMMENDATION: * L2 and L5 kyphoplasty with biopsy *L4 KYPHOPLASTY WITH BIOPSY Description of Procedure: Lumbar (2, 4, 5) Kyphoplasty The patient was seen and examined in the preoperative area. All preoperative protocols were followed. Informed consent was obtained, risks and benefits of the procedure were discussed at length. Risks including bleeding infection damage to the surrounding tissue and risk of reoperation were discussed with the patient. Risk of anesthesia up to and including was discussed with the patient. These are outlined in the risk review. They were willing to accept these risks and all the risks of surgery. The patient was given a weight-based dose of antibiotics in the form of 2 g Ancef. The patient was seen and evalu ated by the anesthesia team who deemed them fit for surgery. The site was marked, the patient was willing to proceed with the procedure. The patient was transferred to the operative suite by the Department of anesthesia. They were then drifted off to sleep by the department anesthesia and GETA was performed. The patient tolerated this well. Once confirmation of lines and ventilation the patient was transferred to a prone Roberto table very carefully. All bony prominences including wrists, elbows, axilla, chest, hips, and thighs, and feet were padded very well. Special attention was paid to the genitalia, and these were padded accordingly. SCDs were placed on bilateral lower extremities and were connected. Arms were well padded and placed on arm boards up and out in the 90/90 position. Once in position, again we confirmed good ventilation capabilities and that lines were running appropriately. The patients Lumbar spine was then exposed. 1010s were placed outlining the incision site. Standard alcohol was used to clean the incision site and allowed to dry. C-arm was used to needle localize the pedicles at L1 and bio-aris the patient and confirm level for incision which was marked with a skin marker. Operative briefing was performed with all teams and everyone in agreement to proceed. The patient was then prepped and draped in a normal sterile fashion. Timeout was then performed, and all parties agreed with the procedure to be performed. Skin elijah was made. Jamshitdi was passed into the L2 and L4 vertebral body via the pedicle. This was done with biplane fluoroscopy. Once in good position in the body the trochar is removed. Biopsy needle was passed into the body and a biopsy was taken. Drill was then passed and biopsy material taken from drill as well. Curette then used to reduce endplate and create more space. Balloon was then passed an inflated which showed good reduction of endplate on AP and Lateral and confirmed central placement. The cement was then placed and pt remained stable. Good fill of cement was seen without extravasation. Once good fill, the Jamshedi was removed and the wound irrigated. This was then repeated at L5 bilaterally under biplanar fluoroscopy with similar results. Final images confirmed good cement placement and fracture stabilization with reduction. The wounds were irrigated. The skin was closed with a simple stitch and dressed with a bandaid. The patient was then transferred off the table back to their hospital bed a- traumatically. They were extubated by the department of anesthesia. They were then transferred to PACU in stable condition having tolerated the procedure with no complications.
--- NOTE | 2024-03-04 09:03 | FL ---
EXAMINATION TYPE: FL guidance operating room DATE OF EXAM: 03/04/2024 HISTORY: Fluoroscopy time Total dose area product (DAP) in uGy*m?, mGy*cm? (or similar): 43.861. IMPRESSION: 1. Fluoroscopy time. [facility], , 03/04/2024 9:01 AM
--- NOTE | 2024-03-04 09:04 | XR ---
EXAM TYPE: LUMBAR SPINE X RAY SERIES COMPARISON: NONE HISTORY: Kyphoplasty TECHNIQUE: I views are submitted. FINDINGS: Limited resolution intraoperative images demonstrate compression deformities of the vertebral column with surgical instrumentation and changes of vertebroplasty. IMPRESSION: 1. See above. [facility], , 03/04/2024 9:02 AM
[2024-03-04] MEDS: HYDROmorphone 0.5 MG/0.5 ML SYRINGE IVP PRN (09:15)
[2024-03-04] MEDS ORDERED: traMADol 50 MG TAB PO PRN (09:30)
[2024-03-04] MEDS ORDERED: HYDROmorphone 0.5 MG/0.5 ML SYRINGE IVP PRN (09:30)
[2024-03-04] MEDS ORDERED: CYCLOBENZAPRINE 5 MG TAB PO PRN (09:30)
[2024-03-04] MEDS: HYDROcodone/APAP 5-325MG 1 EACH TAB PO PRN (13:32)
[2024-03-04] MEDS: LACTATED RINGERS 1,000 ML IV SCH (14:02)
[2024-03-04] MEDS ORDERED: NON FORMULARY DRUG (Albuterol Inhaler 90 MCG Puff) INHALATION PRN (18:16)
[2024-03-04] MEDS ORDERED: ACETAMINOPHEN TAB 500 MG TAB PO PRN (18:16)
[2024-03-04] MEDS ORDERED: IPRATROPIUM-ALBUTEROL 3 ML NEB INHALATION PRN (18:16)
[2024-03-04] MEDS ORDERED: SENNOSIDES-DOCUSATE SODIUM 1 EACH TAB PO PRN (18:16)
[2024-03-04] MEDS ORDERED: MELATONIN 5 MG TABLET PO PRN (18:16)
[2024-03-04] MEDS: TAMSULOSIN 0.4 MG CAP.ER.24H PO SCH (20:06)
[2024-03-04] MEDS: BUMETANIDE 1 MG TAB PO SCH (20:06)
[2024-03-04] MEDS: MONTELUKAST 10 MG TAB PO SCH (20:06)
[2024-03-04 20:43] LABS: Glucose,Whole Blood 118 mg/dL (70-110)
[2024-03-05] MEDS: LEVOTHYROXINE 25 MCG TAB PO SCH (06:12)
[2024-03-05] MEDS: IPRATROPIUM 0.5 MG/2.5 ML NEBU INHALATION SCH (07:53)
[2024-03-05] MEDS: SYMBICORT 80-4.5 MCG INHALER INHALATION SCH (07:53)
[2024-03-05 07:58] VITALS: BP 130/75; RESP 16; TEMP 98
--- NOTE | 2024-03-05 08:27 | P.PN ---
Subjective Progress Note Date: 03/05/24 Principal diagnosis: L2, L4, L5 vertebral compression fracture Low back pain Patient seen and examined this morning. Patient is sitting up in chair eating breakfast. Patient does report that his pain is improved since the procedure. Surgical dressings are clean dry and intact. Patient does report that he does have walkers and canes available at home if needed. He states he feels comfortable going home this morning. No acute concerns. Objective - Vital Signs Vital signs: Vital Signs Temp 98.0 F 03/05/24 07:41 Pulse 78 03/05/24 08:05 Resp 16 03/05/24 07:41 BP 130/75 03/05/24 07:41 Pulse Ox 98 03/05/24 07:41 FiO2 Intake & Output 03/04/24 03/05/24 03/05/24 18:59 06:59 18:59 Intake Total 650 Output Total 610 925 Balance 40 -925 Weight 98.5 kg Intake: IV 650 Output: Urine 300 925 Straight 300 400 Post Void Residual 300 Estimated Blood Loss 10 Other: # Voids 0 - Exam Physical Examination General: The patient is awake and alert, in no acute distress Skin: Skin is warm and dry with no obvious rashes or lesions. Surgical incisions to the lumbar spine, dressings are clean dry and intact. Eye: Pupils are equal, round and reactive to light, extra-ocular movements are intact; there is normal conjunctiva bilaterally. Neck: The neck is supple, there is no tenderness and ROM intact. Cardiovascular: There is a regular rate and rhythm. No murmur, rub or gallop is appreciated. Respiratory: Respirations are non-labored, breath sounds are equal. Gastrointestinal: Soft, non-distended, non-tender abdomen. Back: There is no tenderness to palpation in the midline, paralumbar, parathoracic or buttocks region. There is no obvious deformity . Musculoskeletal: ROM limited secondary to pain and stiffness from surgical procedure. Right: Shoulder abduction 5/5, elbow flexors 5/5, wrist dorsiflexors 5/5. finger abductor 5/5, jboss architect 5/5, hip flexor 5/5, knee flexor 5/5, ankle dorsiflexor 5/5, ankle plantarflexion 5/5 and extensor hallucis 5/5. Left: Shoulder abduction 5/5, elbow flexors 5/5, wrist dorsiflexors 5/5. finger abductor 5/5, jboss architect 5/5, hip flexor 4-/5, knee flexor 4/5, ankle dorsiflexor 5/5, ankle plantarflexion 5/5 and extensor hallucis 5/5. Neurological: CN 2-12 intact. There are no obvious motor or sensory deficits. Movement and coordination equal and intact. Sensory exam to light touch intact C5-T1 and intact from L2-S1. Reflexes 2/4 in bilateral upper and lower ex tremities. Negative Hoffmans, babinski, and clonus signs. Psychiatric: Cooperative, appropriate mood & affect, normal judgment. - Labs Labs: Abnormal Lab Results - Last 24 Hours (Table) 03/04/24 Range/Units 20:42 POC Glucose (mg/dL) 118 H (70-110) mg/dL Assessment and Plan Assessment: Postop day 1: L2, L4, L5 biopsy with kyphoplasty Plan: -Appreciate agricultural consultant and team management. -Activity: Ambulate QID, OOB all meals, up and about, limit lifting bending twisting to less than 5 lbs. Use walker or cane if needed for stability. -Daily PT/OT, increase ambulation strength and balance. -Pain control: Adequate at this time -Meds: reviewed -GI ppx: senna, Miralax -DVT PPX: TEDS -Hygiene: Maintain dressing clean and dry. Meticulous cleaning after BMs away from the incision site -Encourage IS 10x/hr -Dispo: Discharge home today *I reviewed and discussed this case with my attending Dr. Sauer, whom has reviewed this chart and films and is in agreement with assessment and plan of care as outlined above. I have personally seen and examined the patient, performed the documentation and the assessment and plan as written. Number of minutes spent on the visit: 20m.
--- NOTE | 2024-03-05 08:33 | P.DS ---
Providers Date of admission: 03/04/24 Expected date of discharge: 03/05/24 Attending physician: Al Sauer DO Primary care physician: [facility] Course: Hospital Course: The patient was evaluated preoperatively and found to have the diagnosis of L2, L4, L5 vertebral compression fractures. They underwent appropriate preoperative care and were willing to undergo the intended procedure. They underwent a successful L2, L4, L5 biopsy with kyphoplasty and were recovered appropriately and sent to the floor. While on the floor they worked with physical therapy, occupational therapy and nursing to enhance their recovery experience. Their pain was well controlled through their stay and they were started on appropriate medications, DVT ppx modalities, activity and dietary needs. Daily labs were monitored closely, and transfusions were only used when necessary. Medicine as well as other consulting services have made their input and have helped with our team approach and multidisciplinary care. PT milestones have been met and passed and they have made the recommendation of home for this patient and treating providers agree with this care path. The patient will be discharged home with appropriate medications, instructions and follow-up information and in stable condition. Patient Condition at Discharge: Good Plan - Discharge Summary Discharge Rx Participant: No New Discharge Prescriptions: New HYDROcodone/APAP 5-325MG [Antioch 5-325] 1 tab PO Q6HR PRN 3 Days #12 tab PRN Reason: Pain No Action allopurinoL [Zyloprim] 100 mg PO DAILY Tamsulosin HCl [Flomax] 0.4 mg PO HS Pantoprazole [Protonix] 40 mg PO DAILY Aspirin EC [Ecotrin Low Dose] 81 mg PO DAILY Potassium Chloride [K-Tab ER] 20 meq PO DAILY 30 Days #30 tab Ipratropium-Albuterol Nebulize [Duoneb 0.5 mg-3 mg/3 ml Soln] 3 ml INHALATION QID PRN PRN Reason: Shortness Of Breath Montelukast Sodium [Singulair] 10 mg PO HS Cholecalciferol [Vitamin D3 (25 Mcg = 1000 Iu)] 25 mcg PO DAILY Ascorbic Acid [Vitamin C] 500 mg PO DAILY Albuterol Inhaler [Ventolin Hfa Inhaler] 2 puff INHALATION Q6H PRN PRN Reason: Shortness Of Breath Fluticasone/Umeclidin/Vilanter [Trelegy Ellipta 200-62.5-25] 1 puff INHALATION QAM Apixaban [Eliquis] 5 mg PO BID tab Melatonin 5 mg PO HS PRN tab PRN Reason: Insomnia polyethylene glycoL 3350 [Miralax] 17 gm PO DAILY PRN packet PRN Reason: Constipation Levothyroxine Sodium [Synthroid] 25 mcg PO DAILY Bumetanide [Bumex] 1 mg PO BID #60 tablet Acetaminophen Tab [Tylenol Tab] 500 mg PO Q6H PRN PRN Reason: Pain Sennosides/Docusate Sodium [Senna-S 8.6-50 mg Tablet] 1 each PO DAILY PRN PRN Reason: Constipation Calcium Carbonate/Vitamin D3 [Calcium 500 mg Chewable Tablet] 3 tab PO DAILY Discharge Medication List allopurinoL [Zyloprim] 100 mg PO DAILY 03/02/16 [History] Tamsulosin HCl [Flomax] 0.4 mg PO HS 12/29/17 [History] Pantoprazole [Protonix] 40 mg PO DAILY 03/03/19 [History] Montelukast Sodium [Singulair] 10 mg PO HS 08/16/20 [History] Aspirin EC [Ecotrin Low Dose] 81 mg PO DAILY 10/10/20 [History] Ascorbic Acid [Vitamin C] 500 mg PO DAILY 10/19/21 [History] Cholecalciferol [Vitamin D3 (25 Mcg = 1000 Iu)] 25 mcg PO DAILY 10/19/21 [History] Albuterol Inhaler [Ventolin Hfa Inhaler] 2 puff INHALATION Q6H PRN 03/19/22 [History] Fluticasone/Umeclidin/Vilanter [Trelegy Ellipta 200-62.5-25] 1 puff INHALATION QAM 05/23/23 [History] Potassium Chloride [K-Tab ER] 20 meq PO DAILY 30 Days #30 tab 05/25/23 [Rx] Apixaban [Eliquis] 5 mg PO BID tab 06/14/23 [Rx] Melatonin 5 mg PO HS PRN tab 06/14/23 [Rx] polyethylene glycoL 3350 [Miralax] 17 gm PO DAILY PRN packet 06/14/23 [Rx] Levothyroxine Sodium [Synthroid] 25 mcg PO DAILY 11/06/23 [History] Bumetanide [Bumex] 1 mg PO BID #60 tablet 11/08/23 [Rx] Acetaminophen Tab [Tylenol Tab] 500 mg PO Q6H PRN 02/29/24 [History] Calcium Carbonate/Vitamin D3 [Calcium 500 mg Chewable Tablet] 3 tab PO DAILY 02/29/24 [History] Ipratropium-Albuterol Nebulize [Duoneb 0.5 mg-3 mg/3 ml Soln] 3 ml INHALATION QID PRN 02/29/24 [History] Sennosides/Docusate Sodium [Senna-S 8.6-50 mg Tablet] 1 each PO DAILY PRN 02/29/24 [History] HYDROcodone/APAP 5-325MG [Antioch 5-325] 1 tab PO Q6HR PRN 3 Days #12 tab 03/05/24 [Rx] Follow up Appointment(s)/Referral(s): Deanna Kate MD [Primary Care Provider] - 1 Week Al Sauer DO [Doctor of Osteopathic Medicine] - 2 Weeks Activity/Diet/Wound Care/Special Instructions: Activity: Ambulate as tolerated. Utilize walker or cane as needed. Do not fall. Limit your bending, lifting, twisting to less than 5lbs. Hygiene: You may remove dressing in 1-2 days. You may Shower, allow soapy water to run over incision sites and pat dry. May leave open to air when there is no drainage. Pain management: Take medications as directed. Utilize ice to area 20min/hr. No Heat. Follow up with Dr. Sauer's office in 2 weeks. If you have any questions or concerns, please call the office [phone] option #3. Discharge Disposition: HOME SELF-CARE
[2024-03-05] MEDS: ASPIRIN 81 MG PO SCH (08:37)
[2024-03-05] MEDS: CHOLECALCIFEROL 25 MCG (1000 IU) TABLET PO SCH (08:38)
[2024-03-05] MEDS: POTASSIUM CHLORIDE ER 20 MEQ TAB.ER PO SCH (08:38)
[2024-03-05] MEDS: SENNOSIDES-DOCUSATE SODIUM 1 EACH TAB PO SCH (08:38)
[2024-03-05] MEDS: APIXABAN 5 MG TAB PO SCH (08:38)
[2024-03-05] MEDS: allopurinoL 100 MG TAB PO SCH (08:38)
[2024-03-05] MEDS: CALCIUM CARB-VIT D 500 MG-5 MCG TAB PO SCH (08:38)
[2024-03-05] MEDS: PANTOPRAZOLE 40 MG TABLET PO SCH (08:38)
[2024-03-05] MEDS: ASCORBIC ACID 500 MG TAB PO SCH (08:38)
[2024-03-05] MEDS: polyethylene glycoL 3350 17 GM POWD.PACK PO PRN (10:10)
[2024-03-05 11:53] VITALS: PULSE 82
== END 2024-03-05 12:24 | disposition home or self-care (01) ==
LOC: OR 05:42 → 4SSUR 08:48 → OR 03-05 12:24
PROVIDERS: ATTEND Orthopaedic Surgery
CPT/HCPCS: 72100; 86850; 86900; 86901; 88307; 88311; 94640

== ENCOUNTER → 2024-04-04 | Outpatient (CLI) | payer OTHER ==
--- NOTE | 2024-04-04 13:35 | XR ---
EXAMINATION TYPE: XR chest 2V DATE OF EXAM: 04/04/2024 1:10 PM COMPARISON: Chest radiographs from 02/22/2024 CLINICAL INDICATION: Male, 78 years old with history of J44.9 CHRONIC OBSTRUCTIVE PULMONARY DISEASE, UNSPE; [facility] TECHNIQUE: XR chest 2V Frontal and lateral views of the chest. FINDINGS: Lungs/Pleura: There is no evidence of pleural effusion, focal consolidation, or pneumothorax. Pulmonary vascularity: Unremarkable. Heart/mediastinum: Cardiomediastinal silhouette is unremarkable. Musculoskeletal: No acute osseous pathology. Other findings: None IMPRESSION: Right basilar streaky atelectasis scarring similar 02/22/2024 [facility], , 04/04/2024 1:33 PM
== END | disposition home or self-care (01) ==
LOC: RADXRMAIN 12:40
PROVIDERS: ATTEND Internal Medicine Hospice and Palliative Medicine
DX: J44.9 Chronic obstructive pulmonary disease, unspecified (principal); J98.11 Atelectasis; J98.4 Other disorders of lung
CPT/HCPCS: 71046

== ENCOUNTER → 2024-04-29 | Outpatient (CLI) | payer MEDICARE ==
--- NOTE | 2024-04-29 12:59 | XR ---
EXAMINATION TYPE: XR thoracic spine 2V, XR lumbar spine 2 or 3V DATE OF EXAM: 04/29/2024 12:47 PM COMPARISON: None CLINICAL INDICATION: Male, 78 years old with history of M54.50 low back pain; TECHNIQUE: XR thoracic spine 2V, XR lumbar spine 2 or 3V views of the spine in frontal and lateral vi ews of the thoracic spine in frontal lateral and coned in L5 view of the lumbar spine. FINDINGS: No evidence of acute fracture. There is scattered multilevel disk space narrowing without loss of ve rtebral body height and thoracic spine. There is normal alignment of the thoracic vertebral bodies. S cattered osteophyte formation along the anterior and lateral aspects of the vertebral bodies. Neural foramen are patent given limitations of this exam. Spinal canal appears patent. There is vertebroplas ty changes of L2, L4 and L5 with vertebroplasty cement. No foraminal stenosis worse at L4-L5 with at least moderate bilateral. IMPRESSION: 1. No acute osseous pathology. MRI could be provided for confirmation of findings sent to rule out parkinson btle fracture. 2. 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 3. Neural from stenosis worse at L4-L5 with at least moderate stenosis. [facility], , 04/29/2024 12:57 PM
== END | disposition home or self-care (01) ==
LOC: RADXRMAIN 12:05
PROVIDERS: ATTEND Internal Medicine Hospice and Palliative Medicine
DX: M48.061 Spinal stenosis, lumbar region without neurogenic claudication (principal); M51.369 Other intervertebral disc degeneration, lumbar region without mention of lumbar back pain or lower extremity pain
CPT/HCPCS: 72070; 72100

== ENCOUNTER 2024-05-02 16:37 | Emergency (ER) | payer OTHER ==
[2024-05-02 16:58] VITALS: BP 95/56; PULSE 69; RESP 18; TEMP 98.8
[2024-05-02 17:46] LABS: Basophils % (A) 0 %; Eosinophils # (A) 0.1 k/uL (0-0.7); Eosinophils % (A) 1 %; HCT 45.1 % (39.0-53.0); HGB 14.6 gm/dL (13.0-17.5); Lymphocytes # (A) 1.5 k/uL (1.0-4.8); Lymphocytes % (A) 19 %; MCH 29.5 pg (25.0-35.0); MCHC 32.3 g/dL (31.0-37.0); MCV 91.3 fL (80.0-100.0); Mean Platelet Volume 7.1; Monocytes # (A) 0.5 k/uL (0-1.0); Monocytes % (A) 7 %; Neutrophils # (A) 5.5 k/uL (1.3-7.7); Neutrophils % (A) 71 %; Platelet Count 224 k/uL (150-450); RBC 4.94 m/uL (4.30-5.90); WBC 7.7 k/uL (3.8-10.6)
[2024-05-02] MEDS: HYDROmorphone 0.5 MG/0.5 ML SYRINGE IVP STA (17:47)
[2024-05-02] MEDS: KETOROLAC 15 MG/ML 1 ML VIAL IVP STA (17:47)
--- NOTE | 2024-05-02 17:56 | ED ---
General Adult HPI - General Chief complaint: Extremity Problem,Nontraumatic Stated complaint: L Foot Swelling Time Seen by Provider: 05/02/24 17:00 Source: patient, RN notes reviewed, old records reviewed Mode of arrival: wheelchair Limitations: no limitations - History of Present Illness Initial comments: This is a 78-year-old male who presents to the emergency department with 2 complaints. Patient states he recently had some injections in his back by Dr. Sauer he was feeling better so he did not follow-up with him. Patient states over the last couple of days back pain has become quite significant. Patient states is on the left lower back. Patient states he also has some swelling to the left foot and some redness to the medial malleolus which is very tender to palpate. Patient denies any new injury. - Related Data Home Medications Medication Instructions Recorded Confirmed allopurinoL [Zyloprim] 100 mg PO DAILY 03/02/16 05/02/24 Tamsulosin HCl [Flomax] 0.4 mg PO DAILY 12/29/17 05/02/24 Pantoprazole [Protonix] 40 mg PO DAILY 03/03/19 05/02/24 Montelukast Sodium [Singulair] 10 mg PO HS 08/16/20 05/02/24 Aspirin EC [Ecotrin Low Dose] 81 mg PO DAILY 10/10/20 05/02/24 Ascorbic Acid [Vitamin C] 500 mg PO DAILY 10/19/21 05/02/24 Albuterol Inhaler [Ventolin Hfa 2 puff INHALATION RT-Q6H PRN 03/19/22 05/02/24 Inhaler] Fluticasone/Umeclidin/Vilanter 1 puff INHALATION RT-DAILY 05/23/23 05/02/24 [Trelegy Ellipta 200-62.5-25] Levothyroxine Sodium [Synthroid] 25 mcg PO DAILY 11/06/23 05/02/24 Calcium Carbonate/Vitamin D3 1 tab PO TID 02/29/24 05/02/24 [Calcium 500 mg Chewable Tablet] Ipratropium-Albuterol Nebulize 3 ml INHALATION RT-TID PRN 02/29/24 05/02/24 [Duoneb 0.5 mg-3 mg/3 ml Soln] Amiodarone [Cordarone] 200 mg PO DAILY 05/02/24 05/02/24 Atorvastatin [Lipitor] 40 mg PO HS 05/02/24 05/02/24 Bumetanide [Bumex] 1 mg PO DAILY 05/02/24 05/02/24 Buprenorphine [Buprenorphine 15 1 patch TRANSDERM TU 05/02/24 05/02/24 MCG/HR] Empagliflozin [Jardiance] 10 mg PO DAILY 05/02/24 05/02/24 Ferrous Sulfate [Feosol] 325 mg PO DAILY 05/02/24 05/02/24 HYDROcodone/APAP 7.5-325MG [[place] 1 tab PO BID PRN 05/02/24 05/02/24 7.5-325] Magnesium Oxide [Mag-Ox] 250 mg PO DAILY 05/02/24 05/02/24 Menthol [Biofreeze] 1 applic TOPICAL BID 05/02/24 05/02/24 Metoprolol Tartrate [Lopressor] 50 mg PO BID 05/02/24 05/02/24 Multivit-Min/FA/Lycopen/Lutein 1 tab PO DAILY 05/02/24 05/02/24 [Centrum Silver Tablet] Sacubitril/Valsartan [Entresto 24 1 tab PO BID 05/02/24 05/02/24 mg-26 mg Tablet] methocarbamoL [Robaxin-750] 750 mg PO BID PRN 05/02/24 05/02/24 polyethylene glycoL 3350 [Miralax] 17 gm PO Q48H 05/02/24 05/02/24 Previous Rx's Medication Instructions Recorded Potassium Chloride [K-Tab ER] 20 meq PO DAILY 30 Days #30 tab 05/25/23 Apixaban [Eliquis] 5 mg PO BID tab 06/14/23 Allergies Allergy/AdvReac Type Severity Reaction Status Date / Time No Known Allergies Allergy Verified 05/02/24 17:37 Review of Systems ROS Statement: Those systems with pertinent positive or pertinent negative responses have been documented in the HPI. ROS Other: All systems not noted in ROS Statement are negative. Past Medical History Past Medical History: Coronary Artery Disease (CAD), Chest Pain / Angina, COPD, Diabetes Mellitus, GERD/Reflux, GI Bleed, Hyperlipidemia, Hypertension, Myocardial Infarction (CT), Pneumonia, Skin Disorder Additional Past Medical History / Comment(s): Frequent constipation. Hx of rectal bleeding, rectal fissure. Hx gout. Hx bronchitis, uses O2 @ 2L [place] 11/12. Hx Covid 08/2020. Hx Pneumonia 2022 resulting in weakness and a loss of significant muscle mass. Chronic back pain last 2 months. Prone to cysts, none currently. Saw kidney Dr, unsure why. Last Myocardial Infarction Date:: approx 2005 History of Any Multi-Drug Resistant Organisms: None Reported Past Surgical History: Heart Catheterization With Stent Additional Past Surgical History / Comment(s): Total of 3 cardiac stents, bilateral cataract surgery, uro lift, multiple cysts removed from testicles, buttocks, and back, rectal area, colonoscopy. Past Anesthesia/Blood Transfusion Reactions: No Reported Reaction Date of Last Stent Placement:: 2005 Past Psychological History: No Psychological Hx Reported Smoking Status: Former smoker Past Alcohol Use History: Occasional Past Drug Use History: None Reported - Past Family History Father Family Medical History: Cancer Additional Family Medical History / Comment(s): Lung cancer. Mother Family Medical History: No Reported History Additional Family Medical History / Comment(s): Mother was healthy and lived to be in her 90s. General Exam - General Exam Comments Initial Comments: GENERAL: Patient is well-developed and well-nourished. Patient is nontoxic and well- hydrated and is in mild distress. ENT: Neck is soft and supple. No significant lymphadenopathy is noted. Oropharynx is clear. Moist mucous membranes. Neck has full range of motion without eliciting any pain. EYES: The sclera were anicteric and conjunctiva were pink and moist. Extraocular movements were intact and pupils were equal round and reactive to light. Eyelids were unremarkable. PULMONARY: Unlabored respirations. Good breath sounds bilaterally. No audible rales rhonchi or wheezing was noted. CARDIOVASCULAR: There is a regular rate and rhythm without any murmurs gallops or rubs. ABDOMEN: Soft and nontender with normal bowel sounds. SKIN: Skin is clear with no lesions or rashes and otherwise unremarkable. NEUROLOGIC: Patient is alert and oriented x3. Cranial nerves II through XII are grossly intact. Motor and sensory are also intact. Normal speech, volume and content. Symmetrical smile. MUSCULOSKELETAL: Left foot is swollen there is very erythematous medial malleolus and very tender to palpate LYMPHATICS: No significant lymphadenopathy is noted PSYCHIATRIC: Normal psychiatric evaluation. Limitations: no limitations Course Vital Signs 05/02/24 16:54 Temperature 98.8 F Pulse Rate 69 Respiratory 18 Rate Blood Pressure 95/56 O2 Sat by Pulse 93 L Oximetry Medical Decision Making - Medical Decision Making Was pt. sent in by a medical professional or institution ([employer] Garza, [employer], urgent care, hospital, or detention...) When possible be specific @ -No Did you speak to anyone other than the patient for history (EMS, parent, family, police, friend...)? What history was obtained from this source @ -No Did you review nursing and triage notes (agree or disagree)? Why? @ -I reviewed and agree with nursing and triage notes Were old charts reviewed (outside hosp., previous admission, EMS record, old EKG, old radiological studies, urgent care reports/EKG's, detention records)? Report findings @ -No old charts were reviewed Differential Diagnosis? @ -Differential Back Pain: Strain, zoster, cauda equina syndrome, epidural abscess, vertebral osteomyelitis, discitis, fracture, subluxation, disc herniation, DJD, spinal stenosis, dissection, AAA, pancreatitis, peptic ulcer disease, pyelonephritis, kidney stone, this is not meant to be an all-inclusive list. EKG interpreted by me (3pts min.). @ -As above X-rays interpreted by me (1pt min.). @ -None done CT interpreted by me (1pt min.). @ -None done U/S interpreted by me (1pt. min.). @ -None done What testing was considered but not performed or refused? (CT, X-rays, U/S, labs)? Why? @ -None What meds were considered but not given or refused? Why? @ -None Did you discuss the management of the patient with other professionals (professionals i.e. [employer] Garza, [employer] WORK[employer], lab, RT, psych nurse, school social worker, fire crew worker, teacher, president and chief operating officer, disease case manager)? Give summary @ -No Was smoking cessation discussed for >3mins.? @ -No Was critical care preformed (if so, how long)? @ -No Were there social determinants of health that impacted care today? How? (Homelessness, low income, unemployed, alcoholism, drug addiction, transportation, low edu. Level, literacy, decrease access to med. care, care home, rehab)? @ -No Was there de-escalation of care discussed even if they declined (Discuss DNR or withdrawal of care, Hospice)? DNR status @ -No What co-morbidities impacted this encounter? (DM, HTN, Smoking, COPD, CAD, Cancer, CVA, ARF, Chemo, Hep., AIDS, mental health diagnosis, sleep apnea, morbid obesity)? @ -None Was patient admitted / discharged? Hospital course, mention meds given and route, prescriptions, significant lab abnormalities, going to OR and other pertinent info. @ -Patient's has chronic back pain and I give the patient Toradol and Dilaudid I will back and we stated he was feeling considerably better. Patient's foot was swollen and a little bit red on the medial malleolus. But lab work was all normal and patient states he has been battling edema and redness for many many months Undiagnosed new problem with uncertain prognosis? @ -No Drug Therapy requiring intensive monitoring for toxicity (Heparin, Nitro, Insulin, Cardizem)? @ -No Were any procedures done? @ -No Diagnosis/symptom? @ -Edema foot Acute, or Chronic, or Acute on Chronic? @ -Chronic Uncomplicated (without systemic symptoms) or Complicated (systemic symptoms)? @ -Uncomplicated Side effects of treatment? @ -No Exacerbation, Progression, or Severe Exacerbation? @ -No Poses a threat to life or bodily function? How? (Chest pain, USA, CT, pneumonia, PE, COPD, DKA, ARF, appy, cholecystitis, CVA, Diverticulitis, Homicidal, Suicidal, threat to staff... and all critical care pts) @ -No Diagnosis/symptom? @ -Chronic back Acute, or Chronic, or Acute on Chronic? @ -Chronic Uncomplicated (without systemic symptoms) or Complicated (systemic symptoms)? @ -Uncomplicated Side effects of treatment? @ -None Exacerbation, Progression, or Severe Exacerbation] @ -No Poses a threat to life or bodily function? @ -No - Lab Data Result diagrams: 05/02/24 17:40 05/02/24 17:40 Lab Results 05/02/24 05/02/24 05/02/24 Range/Units 17:40 17:40 17:40 WBC 7.7 (3.8-10.6) k/uL RBC 4.94 (4.30-5.90) m/uL Hgb 14.6 (13.0-17.5) gm/dL Hct 45.1 (39.0-53.0) % MCV 91.3 (80.0-100.0) fL MCH 29.5 (25.0-35.0) pg MCHC 32.3 (31.0-37.0) g/dL RDW 16.0 H (11.5-15.5) % Plt Count 224 (150-450) k/uL MPV 7.1 Neutrophils % 71 % Lymphocytes % 19 % Monocytes % 7 % Eosinophils % 1 % Basophils % 0 % Neutrophils # 5.5 (1.3-7.7) k/uL Lymphocytes # 1.5 (1.0-4.8) k/uL Monocytes # 0.5 (0-1.0) k/uL Eosinophils # 0.1 (0-0.7) k/uL Basophils # 0.0 (0-0.2) k/uL Sodium 138 (137-145) mmol/L Potassium 5.2 H (3.5-5.1) mmol/L Chloride 100 (98-107) mmol/L Carbon Dioxide 28 (22-30) mmol/L Anion Gap 10 mmol/L BUN 31 H (9-20) mg/dL Creatinine 1.79 H (0.66-1.25) mg/dL Est GFR (CKD-EPI)AfAm 41 (>60 ml/min/1.73 sqM) Est GFR (CKD-EPI)NonAf 36 (>60 ml/min/1.73 sqM) Glucose 118 H (74-99) mg/dL Plasma Lactic Acid [place] 1.4 (0.7-2.0) mmol/L Calcium 9.3 (8.4-10.2) mg/dL Total Bilirubin 1.0 (0.2-1.3) mg/dL AST 19 (17-59) U/L ALT 13 (4-49) U/L Alkaline Phosphatase 143 H (38-126) U/L Total Protein 6.7 (6.3-8.2) g/dL Albumin 4.3 (3.5-5.0) g/dL Disposition Clinical Impression: Edema of foot, Chronic back pain Disposition: HOME SELF-CARE Condition: Good Instructions (If sedation given, give patient instructions): Chronic Back Pain (DC) Is patient prescribed a controlled substance at d/c from ED?: No Referrals: Eliezer Valdez MD [Primary Care Provider] - 1-2 days Time of Disposition: 18:55
[2024-05-02 18:04] LABS: ALT 13 U/L (4-49); AST 19 U/L (17-59); African American GFR (CKD) 41 (>60 ml/min/1.73 sqM); Albumin 4.3 g/dL (3.5-5.0); Alkaline Phosphatase 143 U/L (38-126); Anion Gap 10 mmol/L; Blood Urea Nitrogen 31 mg/dL (9-20); Calcium 9.3 mg/dL (8.4-10.2); Carbon Dioxide 28 mmol/L (22-30); Chloride 100 mmol/L (98-107); Glucose 118 mg/dL (74-99); Non-African American GFR(CKD) 36 (>60 ml/min/1.73 sqM); Potassium 5.2 mmol/L (3.5-5.1); Sodium 138 mmol/L (137-145); Total Protein 6.7 g/dL (6.3-8.2)
[2024-05-02] MEDS ORDERED: HYDROmorphone 0.5 MG/0.5 ML SYRINGE IVP STA (18:09)
[2024-05-02] MEDS ORDERED: SODIUM CHLORIDE 0.9% 500 ML 500 ML IV ONE (18:09)
== END 2024-05-02 19:15 | disposition home or self-care (01) ==
LOC: EC 16:37
DX: G89.29 Other chronic pain (principal); R60.9 Edema, unspecified; M54.9 Dorsalgia, unspecified; Z87.891 Personal history of nicotine dependence; Z86.16 Personal history of COVID-19
CPT/HCPCS: 36415; 80053; 83605; 85025; 87040; 99283; 96374; 96375; J1885; J1171

== ENCOUNTER → 2024-05-16 | Outpatient (CLI) | payer OTHER ==
--- NOTE | 2024-05-16 15:38 | US ---
EXAMINATION TYPE: US arterial LE single level DATE OF EXAM: 05/16/2024 1:47 PM COMPARISONS: None. CLINICAL INDICATION: Male, 78 years old with history of I50.9 HEART FAILURE; TECHNIQUE: Systolic pressures were taken of the upper and lower extremity arteries with ankle-brachia l indices and toe brachial indices calculated bilaterally. History of: Smoker: Yes Hypertension: Yes Diabetic: Yes Hyperlipidemia: No TIA/CVA: No Previous Vascular Surgery: No CAD: No IL: No Vascular Ulcers: No Claudication: No Gangrene: No FINDINGS: Doppler Waveforms: Right: Multiphasic Left: Multiphasic Brachial Artery systolic pressure: Right: 123 Left: 142 Posterior Tibial artery systolic pressure: Right: 121 Left: 141 Dorsalis Pedis artery systolic pressure: Right: 108 Left: 137 Toe artery systolic pressure: Right: 148 Left: 101 Ankle-Brachial Indices: Right: 0.85 Left: 0.99 (Vessel hardening > 1.4; Normal 0.9 - 1.4, Moderate 0.7 - 0.9, Severe 0.5-0.7) Toe Brachial Indices: Right: 1.04 Left: 0.71 (Normal > 0.6; Mild 0.35 - 0.59, Moderate 0.12 - 0.34, Severe <0.12) IMPRESSION: Moderate right and normal left peripheral vascular disease by ankle brachial indices. [facility], , 05/16/2024 3:35 PM
== END | disposition home or self-care (01) ==
LOC: RADUSWWP 05-15 13:03
PROVIDERS: ATTEND Internal Medicine Hospice and Palliative Medicine
DX: I50.9 Heart failure, unspecified (principal); I73.9 Peripheral vascular disease, unspecified
CPT/HCPCS: 93922